=== PATIENT | male | born 1955 | race American Indian/Alaskan Native ===

== ENCOUNTER 2017-06-25 18:13 | Inpatient (IN) | payer MEDICARE ==
[2017-06-25 19:02] LABS: Basophils % (Auto) 0.6 % (0.0-1.8); Hematocrit 39.4 % (35.5-45.6); Hemoglobin 13.2 gm/dl (11.8-15.2); Mean Corpuscular HGB Conc 34 % (32-34); Mean Corpuscular Hemoglobin 33 pg (28-32); Mean Corpuscular Volume 97 fl (84-94); Platelet Count 189 K/mm3 (140-440); Red Blood Count 4.04 M/mm3 (3.65-5.03); Red Cell Distribution Width 13.5 % (13.2-15.2); White Blood Count 7.1 K/mm3 (4.5-11.0)
[2017-06-25 19:11] LABS: Anion Gap 20 mmol/L; BUN/Creatinine Ratio 13.33; Blood Urea Nitrogen 16 mg/dL (9-20); Calcium 9.5 mg/dL (8.4-10.2); Carbon Dioxide 26 mmol/L (22-30); Chloride 98.8 mmol/L (98-107); Glucose 98 mg/dL (75-100); Potassium 3.7 mmol/L (3.6-5.0); Sodium 141 mmol/L (137-145)
[2017-06-25 19:13] LABS: INR 1.05 (0.87-1.13)
[2017-06-25 19:14] LABS: Partial Thromboplastin Time 29.3 Sec. (24.2-36.6)
[2017-06-25] MEDS ORDERED: ZOFRAN IV ONE (21:36)
[2017-06-25] MEDS ORDERED: MORPHINE IV ONE (21:36)
[2017-06-25] MEDS ORDERED: NITRO-BID 2% TP ONE (21:36)
[2017-06-25] MEDS ORDERED: ASPIRIN PO ONE (21:36)
--- NOTE | 2017-06-25 21:40 | Emergency Department Report ---
HPI - General Chief Complaint: Chest Pain Time Seen by Provider: 06/25/17 21:27 - HPI HPI: Room 26 The patient is a 62-year-old male presenting with chief complaint of chest pain. Patient states his symptoms began this morning at approximately 04:30 with substernal chest pain described as a tightness/pressure in nature. The patient states he had to sit on the edge of his bed. The patient states she took a sublingual nitroglycerin in the chest pain resolved but returned at 09: 30. The patient states he again took a sublingual nitroglycerin and his chest pain resolved. The patient states since then his chest pain is an intermittent associated left neck pain, shortness of breath and nausea but denies vomiting or diaphoresis. The patient currently gives his pain a score of 6-7/10. The patient has an extensive cardiac history including a triple bypass in 1995 and 6 cardiac stents the last which was placed in April 2017. Location: Chest, see above Duration: Intermittent since 04:30 Quality: Tightness/pressure Severity: 6-7/10 Modifying factors: [see above] Context: [see above] Mode of transportation: Unknown ED Past Medical Hx - Past Medical History Hx Hypertension: Yes Hx CVA: Yes Hx Heart Attack/AMI: Yes (4) Hx Congestive Heart Failure: Yes Additional medical history: high cholesterol. 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 - Family History Family history: no significant - Social History Smoking Status: Former Smoker (none since 1994) Substance Use Type: None (denies illicit drug use), Alcohol (occasional strawberry daiquiri) - Medications Home Medications: Home Medications Medication Instructions Recorded Confirmed Last Taken Type Aspirin EC [Aspirin Enteric Coated 325 mg PO QDAY #30 tablet 09/17/14 09/19/16 12/02/15 Rx TAB] Clopidogrel [Plavix] 75 mg PO QDAY #30 tablet 09/17/14 09/19/16 12/02/15 Rx Nitroglycerin [Nitrostat] 0.4 mg SL .Q5MIN PRN #25 tab 09/17/14 09/19/16 Rx Furosemide [Lasix TAB] 40 mg PO QDAY 12/04/15 09/19/16 12/02/15 History Simvastatin [Zocor TAB] 20 mg PO QHS #30 tablet 12/06/15 09/19/16 Unknown Rx Carvedilol [Coreg] 25 mg PO DAILY 09/19/16 09/19/16 Unknown History ISOSORBIDE MONOnitrate [Imdur ER] 120 mg PO DAILY 09/19/16 09/19/16 Unknown History Ranolazine ER [Ranexa ER] 2,000 mg PO DAILY 09/19/16 09/19/16 Unknown History Temazepam 30 mg PO QHS 09/19/16 09/19/16 Unknown History hydrALAZINE [Apresoline TAB] 25 mg PO DAILY 09/19/16 09/19/16 Unknown History ED Review of Systems ROS: Stated complaint: CHEST PAIN Other details as noted in HPI Comment: All other systems reviewed and negative Constitutional: denies: chills, diaphoresis, fever Eyes: denies: eye pain, eye discharge, vision change ENT: denies: ear pain, throat pain Respiratory: shortness of breath Cardiovascular: chest pain Endocrine: no symptoms reported Gastrointestinal: denies: abdominal pain, nausea, diarrhea Genitourinary: denies: urgency, dysuria Musculoskeletal: denies: back pain, joint swelling, arthralgia Skin: denies: rash, lesions Neurological: denies: headache, weakness, paresthesias Psychiatric: denies: anxiety, depression Hematological/Lymphatic: denies: easy bleeding, easy bruising Physical Exam - Physical Exam Vital Signs: Vital Signs 06/25/17 06/25/17 06/25/17 18:25 20:48 21:01 Temperature 97.9 F Pulse Rate 69 71 Respiratory 19 8 L Rate Blood Pressure 174/80 164/85 O2 Sat by Pulse 100 99 96 Oximetry Physical Exam: GENERAL: The patient is well-developed well-nourished male lying on stretcher not appearing to be in acute distress. [] HEENT: Normocephalic. Atraumatic. Extraocular motions are intact. Patient has moist mucous membranes. NECK: Supple. Trachea midline CHEST/LUNGS: Clear to auscultation. There is no respiratory distress noted. HEART/CARDIOVASCULAR: Regular. There is no tachycardia. There is no gallop rub or murmur. ABDOMEN: Abdomen is soft, nontender. Patient has normal bowel sounds. There is no abdominal distention. SKIN: There is no rash. There is no edema. There is no diaphoresis. NEURO: The patient is awake, alert, and oriented. The patient is cooperative. The patient has normal speech MUSCULOSKELETAL: There is no evidence of acute injury. ED Course Vital Signs 06/25/17 06/25/17 06/25/17 18:25 20:48 21:01 Temperature 97.9 F Pulse Rate 69 71 Respiratory 19 8 L Rate Blood Pressure 174/80 164/85 O2 Sat by Pulse 100 99 96 Oximetry ED Medical Decision Making - Lab Data Result diagrams: 06/25/17 18:36 06/25/17 18:36 Laboratory Tests 06/25/17 06/25/17 06/25/17 18:36 18:36 18:36 WBC 7.1 RBC 4.04 Hgb 13.2 Hct 39.4 MCV 97 H MCH 33 H MCHC 34 RDW 13.5 Plt Count 189 Lymph % (Auto) 22.8 [place] % (Auto) 9.0 H Eos % (Auto) 1.0 Baso % (Auto) 0.6 Lymph # 1.6 [place] # 0.6 Eos # 0.1 Baso # 0.0 Seg Neutrophils % 66.6 Seg Neutrophils # 4.7 PT 13.6 INR 1.05 APTT 29.3 Sodium 141 Potassium 3.7 Chloride 98.8 Carbon Dioxide 26 Anion Gap 20 BUN 16 Creatinine 1.2 Estimated GFR > 60 BUN/Creatinine Ratio 13.33 Glucose 98 Calcium 9.5 Troponin T < 0.010 - Radiology Data Radiology results: image reviewed (chest x-ray) interpreted by me: Chest x-ray-no focal infiltrates, no pneumothorax - Differential Diagnosis ACS, pericarditis, GERD Critical care attestation.: If time is entered above; I have spent that time in minutes in the direct care of this critically ill patient, excluding procedure time. ED Disposition Clinical Impression: Chest pain Disposition: -09 OP ADMIT IP TO THIS HOSP Is pt being admited?: Yes Does the pt Need Aspirin: Yes Condition: Fair Instructions: Chest Pain (ED) Referrals: PRIMARY CARE, [Primary Care Provider] - 3-5 Days Time of Disposition: 21:43 (hospitalist paged)
[2017-06-26] MEDS ORDERED: NITROSTAT SL PRN ×2 (00:26→03:35)
[2017-06-26] MEDS: NITRO-BID 2% TP SCH ×2 (00:36→06:41)
[2017-06-26] MEDS ORDERED: RESTORIL PO ONE (01:54)
[2017-06-26] MEDS: RESTORIL PO SCH ×2 (03:30→21:53)
[2017-06-26] MEDS ORDERED: ZOFRAN IV PRN (03:30)
[2017-06-26] MEDS: MORPHINE IV PRN ×4 (03:31→21:53)
--- NOTE | 2017-06-26 07:28 | History and Physical Report ---
CHIEF COMPLAINT: Chest pain. HISTORY OF PRESENTING ILLNESS: The patient is a 62-year-old male who said he has been having tightness and pressure sensation in the chest going on since yesterday. Pain causing intermittently and is responsive to nitroglycerin sublingual. There is history of associated shortness of breath and nausea, but no vomiting. There is also no history of diaphoresis and the patient also denies history of cough or fever and stated that he took 2 nitroglycerins with the pain resolving and coming back and the patient claims the pain at level of about 6 to 7/10. Pain radiates to the left side of the neck. PAST MEDICAL HISTORY: Pertinent for hypertension, CVA, coronary artery disease with acute myocardial infarction, also the patient has history of congestive heart failure, hypercholesterolemia. PAST SURGICAL HISTORY: Pertinent for triple bypass and multiple stents x6 times last one being about few weeks ago. FAMILY HISTORY: Noncontributory. SOCIAL HISTORY: The patient is a former cigarette smoker. Does not smoke cigarettes, currently drinks alcohol occasionally and does not use illicit drugs. MEDICATIONS: The patient is on aspirin 325 mg by mouth daily, clopidogrel, Plavix 75 mg by mouth daily, nitroglycerin, Nitrostat 0.4 mg every 5 minutes as needed for pain, Lasix 40 mg by mouth daily, Zocor 20 mg by mouth at bedtime, and Coreg 25 mg by mouth daily. The patient is also on isosorbide mononitrate 120 mg by mouth daily and ranolazine 2000 mg by mouth daily. The patient is on temazepam 30 mg by mouth at bedtime for insomnia and hydralazine 25 mg by mouth daily. ALLERGIES: The patient is allergic to iodinated contrast media and IV dye. REVIEW OF SYSTEMS: CONSTITUTIONAL: There is no fever. No chills. No diaphoresis. HEENT: There is no headache or sore throat. CARDIOVASCULAR SYSTEM: Chest pain present. No orthopnea. RESPIRATORY SYSTEM: Shortness of breath present. No cough. GASTROINTESTINAL SYSTEM: Nausea present, buy no vomiting. No abdominal pain, diarrhea, or constipation. NEUROLOGICAL SYSTEM: There is no numbness, no dizziness, no altered mental status. MUSCULOSKELETAL SYSTEM: There is no joint pain or swelling. DERMATOLOGICAL SYSTEM: There is no skin rash or itching. GENITOURINARY SYSTEM: Show no dysuria, hematuria, or flank pain. Rest of system review is normal. PHYSICAL EXAMINATION: GENERAL: At the time of exam, the patient was found to be alert, oriented x3, and not in acute distress. VITAL SIGNS: Shows temperature of 97.5, pulse of 72, respirations 22, blood pressure 164/80, O2 sat of 99% on room air. HEENT: Showed pupils to be equal, round, reactive to light and accommodating. Extraocular muscles are intact. NECK: Supple with no JVD or carotid bruit. CARDIOVASCULAR SYSTEM: Show first and second heart sounds with no gallops or murmur. RESPIRATORY SYSTEM: Show good air entry on both sides of the lung with no abnormal breath sounds. GASTROINTESTINAL SYSTEM: Show abdomen to be full, soft, nontender with no organomegaly or rigidity. NEUROLOGIC: Shows no focal deficits. MUSCULOSKELETAL SYSTEM: Show no joint swelling or tenderness. DERMATOLOGICAL SYSTEM: Show no skin rash. GENITOURINARY SYSTEM: Showing no costovertebral angle tenderness. PERTINENT LABORATORY STUDIES: The patient had CBC done that shows normal white count of 7.1 with normal hemoglobin of 13.2 and normal hematocrit of 39.4 with elevated MCV of 97%. CBC differential was unremarkable except for increasing monocyte count of 9.0. Coagulation studies came back unremarkable. Chemistry came back unremarkable with troponin being normal. IMAGING STUDIES: The patient had a chest x-ray done with no report of any acute cardiopulmonary lesion. DIAGNOSIS: Chest pain. PLAN: The patient will be admitted to telemetry and we will have continuous cardiac monitoring. The patient will have cardiac enzymes checked q. 6 hours x2 more levels and will be on aspirin 325 mg by mouth daily. The patient will be on IV morphine 2 mg every 5 minutes as needed for chest pain and will be on nitro paste 1 inch to anterior chest wall q.i.d. The patient will also be on IV Zofran 4 mg every 6 hours as needed for nausea and vomiting and will be on oxygen by nasal cannula at the rate of 2 L per minute. The patient will remain n.p.o. for Lexiscan stress test in the morning and will have his home medication reconciled and applied accordingly. The patient will also be on nitroglycerin sublingual for breakthrough chest pain. JOB# [id number] OCN/NTS MTDD
--- NOTE | 2017-06-26 08:24 | XRay Report ---
Chest 2 views. History: Chest pain and shortness of breath. Findings: The heart is mildly enlarged with normal pulmonary vascularity. Post CABG changes are present. The lungs are clear. There is no pleural fluid. There's been no appreciable change since September 19, 2016. Impression: No acute findings or interval changes.
[2017-06-26] MEDS: APRESOLINE PO SCH ×3 (08:47→20:57)
[2017-06-26] MEDS ORDERED: LEXISCAN IV ONE ×2 (09:06→09:08)
[2017-06-26] MEDS: COREG PO SCH (09:43)
[2017-06-26] MEDS ORDERED: ASPIRIN PO SCH (10:00)
--- NOTE | 2017-06-26 10:41 | Consultation ---
History of Present Illness Consult date: 06/26/17 Requesting physician: STACIE PENNINGTON Consult reason: chest pain, known to you History of present illness: Patient is a 61 YOM with a PMHx significant for chronic CAD (prior 3 V CABG in 1995 with multiple ensuing PCIs, most recently D1, LcX, pLAD and SVG to RCA, in 2014, then SVG to OM 04/2017), CMP, s/p TMLR in 2014, recurrent chest pain, HTN, and HLP. He presented to the ED with c/o chest pain, which began yesterday at 4: 30AM. The patient states the pain awoke him from sleep and he had to sit on the edge of his bed. He then took a sublingual nitroglycerin and the chest pain resolved but returned at 09:30AM. The patient states he again took a sublingual nitroglycerin and his chest pain resolved. The pain then reoccurred and he decided to seek medical attention. He describes his pain as a midsternal and left-sided intermittent pressure which radiates into his left neck. The pain was associated with SOB and nausea. He denies any precipitating or aggravating factors. He reports compliance with all of his medications, including Ranexa and Imdur. Of note, pt recently underwent LHC with PCI for NSTEMI at [facility] on 05/12/2017 which showed severe 3-vessel coronary artery disease with PCI SVG to OM. Pt was also recently discharged from [facility] on 06/20/2017 following treatment for HF. Pt had TMLR done in 03/2015 at [place] for recurrent angina. Pt had RHC in 2015 which revealed elevated intracardiac filling pressures, mild pulmonary hypertension mostly secondary to left heart disease, and low normal cardiac output. Echo done 05/14/2017 showed EF 50 - 55%, hypokinetic apex and distal septum. Patient's primary care doctor is through the [place]. 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 Herzog through [facility]. Past History Past Medical History: CAD, heart failure, hypertension, hyperlipidemia Past Surgical History: CABG Social history: denies: smoking, alcohol abuse, prescription drug abuse Medications and Allergies Allergies Allergy/AdvReac Type Severity Reaction Status Date / Time Iodinated Contrast Media - Allergy Itching Verified 06/25/17 18:21 IV Dye Home Medications Medication Instructions Recorded Confirmed Last Taken Type Aspirin EC [Aspirin Enteric Coated 325 mg PO QDAY #30 tablet 09/17/14 06/25/17 12/02/15 Rx TAB] Clopidogrel [Plavix] 75 mg PO QDAY #30 tablet 09/17/14 06/25/17 12/02/15 Rx Nitroglycerin [Nitrostat] 0.4 mg SL .Q5MIN PRN #25 tab 09/17/14 06/25/17 Rx Simvastatin [Zocor TAB] 20 mg PO QHS #30 tablet 12/06/15 06/25/17 Unknown Rx Carvedilol [Coreg] 25 mg PO DAILY 09/19/16 06/25/17 Unknown History ISOSORBIDE MONOnitrate [Imdur ER] 60 mg PO DAILY 09/19/16 06/25/17 Unknown History Ranolazine ER [Ranexa ER] 1,000 mg PO BID 09/19/16 06/25/17 Unknown History Temazepam 30 mg PO QHS 09/19/16 06/25/17 Unknown History hydrALAZINE [Apresoline TAB] 25 mg PO TID 09/19/16 06/25/17 Unknown History Torsemide [Demadex] 20 mg PO DAILY 06/25/17 06/25/17 Unknown History amLODIPine [Norvasc] 5 mg PO DAILY 06/25/17 06/25/17 Unknown History Active Meds: Active Medications Amlodipine Besylate (Norvasc) 5 mg PO DAILY [facility] Aspirin (Ecotrin) 325 mg PO QDAY [facility] Carvedilol (Coreg) 25 mg PO DAILY [facility] Clopidogrel Bisulfate (Plavix) 75 mg PO QDAY [facility] Hydralazine HCl (Apresoline) 25 mg PO TID [facility] Last Admin: 06/26/17 08:47 Dose: Not Given Morphine Sulfate (Morphine) 2 mg IV Q5MIN PRN PRN Reason: Chest Pain Last Admin: 06/26/17 03:31 Dose: 2 mg Nitroglycerin (Nitro-Bid 2%) 1 inch TP QIDNTG [facility] PRN Reason: Protocol Last Admin: 06/26/17 06:41 Dose: Not Given Nitroglycerin (Nitrostat) 0.4 mg SL .Q5MIN PRN PRN Reason: Chest Pain Ondansetron HCl (Zofran) 4 mg IV Q6H PRN PRN Reason: Nausea And Vomiting Ranolazine (Ranexa Er) 1,000 mg PO BID [facility] Simvastatin (Zocor) 20 mg PO QHS [facility] Temazepam (Restoril) 30 mg PO QHS [facility] Last Admin: 06/26/17 03:30 Dose: 30 mg Torsemide (Demadex) 20 mg PO DAILY [facility] Review of Systems All systems: negative Cardiovascular: chest pain, shortness of breath, no dyspnea on exertion, no leg edema Respiratory: shortness of breath, no cough, no dyspnea on exertion, no congestion, no wheezing, no pain on inspiration Gastrointestinal: nausea, no abdominal pain, no vomiting, no diarrhea, no constipation, no change in bowel habits Physical Examination Vital Signs Temp Pulse Resp BP Pulse Ox 97.9 F 69 19 174/80 100 06/25/17 18:25 06/25/17 18:25 06/25/17 18:25 06/25/17 18:25 06/25/17 18:25 General appearance: no acute distress HEENT: Positive: PERRL, Normocephaly, Mucus Membranes Moist Neck: Positive: neck supple, trachea midline Cardiac: Positive: Reg Rate and Rhythm, S1/S2 Lungs: Positive: Normal Exam, clear to auscultation, Normal Breath Sounds Neuro: Positive: Grossly Intact, Cranial Nerve 2-12 Intact Abdomen: Positive: Unremarkable, Soft, Active Bowel Sounds Skin: Positive: Clear. Negative: Rash, Wound Musculoskeletal: No Fluid Collection, No Pain, Normal Range of Motion Extremities: Present: upper extr. pulses, lower extr. pulses. Absent: edema Results 06/25/17 18:36 06/25/17 18:36 - Imaging and Cardiology Echo: report reviewed (05/14/2017 showed EF 50 - 55%, hypokinetic apex and distal septum. ) Cardiac cath: report reviewed (05/12/2017 which showed severe 3-vessel coronary artery disease with PCI SVG to OM) EKG: image reviewed EKG interpretations - Telemetry EKG Rhythm: Sinus Rhythm - EKG Sinus rhythms and dysrhythmias: sinus rhythm Ventricular dysrhythmias: ventricular premature com AV and intraventricular conduction: left bundle branch block Chamber hypertrophy or enlargement: left ventricular hypertro Myocardial infarction: inferior CA (old age inde Assessment and Plan Chest pain Recurrent, stable chronic angina. ECG with NAF. CXR with NAF. Dar negative for AMI x 3 sets. Continue home ASA, plavix, Imdur & Ranexa. CAD, s/p CA, PCI, CABG, and TMLR Cont ASA, plavix, BB, and statin. HTN Stable. Continue current medical management. HLP Cont statin. CMP Obesity s/p lexiscan MPI stress test this AM which showed small mild partially reversible inferior defect, small mild reversible anterobasal defect, no significant ischemia, EF 34%. Cont medical therapy with possible d/c in AM. The patient has been seen in conjunction with Dr. Pascual who agrees with the assessment and plan of care.
[2017-06-26] MEDS: DEMADEX PO SCH (12:23)
[2017-06-26] MEDS: ECOTRIN PO SCH (12:23)
[2017-06-26] MEDS: RANEXA ER PO SCH ×2 (12:24→21:53)
[2017-06-26] MEDS: PLAVIX PO SCH (12:24)
[2017-06-26] MEDS: IMDUR PO SCH (12:26)
[2017-06-26] MEDS: NORVASC PO SCH (12:27)
--- NOTE | 2017-06-26 15:12 | Progress Note ---
Assessment and Plan Assessment and plan: Patient is 62-year-old man with history of hypertension, acute [place] 4 with 6 cardiac stents, CAD, CVA, CABG, dyslipidemia and CHF who presents with chest pain. Per cardiology: pt recently underwent LHC with PCI for NSTEMI at [facility] on 2016 which showed severe 3-vessel coronary artery disease with PCI SVG to OM. Pt was also recently discharged from [facility] on 06/20/2017 following treatment for HF. Pt had TMLR done in 03/2015 at [place] for recurrent angina. Pt had RHC in 2015 which revealed elevated intracardiac filling pressures, mild pulmonary hypertension mostly secondary to left heart disease, and low normal cardiac output. Echo done 05/14/2017 showed EF 50 - 55%, hypokinetic apex and distal septum. Patient's primary care doctor is through the [place]. 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 Herzog through [facility]. -Chest pain Recurrent, stable chronic angina. ECG with NAF. CXR with NAF. Dar negative for AMI x 3 sets. Continue home ASA, plavix, Imdur & Ranexa. CAD, s/p [place], PCI, CABG, and TMLR Cont ASA, plavix, BB, and statin. HTN Stable. Continue current medical management. HLP Cont statin. CMP Obesity s/p lexiscan MPI stress test this AM which showed small mild partially reversible inferior defect, small mild reversible anterobasal defect, no significant ischemia, EF 34%. Cont medical therapy with possible d/c in AM. History Interval history: Patient seen and examined. Follow up on current diagnosis/chest pain which improved. Overnight uneventful. No sob, n/v or severe headaches. Imaging, old records, testing, labs, nursing notes reviewed. Hospitalist Physical - Physical exam Narrative exam: GEN: WDWN, NAD, AWAKE, ALERT, ORIENTATED x 3 HEENT: NCAT, PERRL, EOMI, OP CLEAR NECK: SUPPLE, NO THYROMEGALY, CVS: RRR, NORMAL S1S2 LUNGS/CHEST: NORMAL CHEST EXPANSION B, GOOD AIR ENTRY B ABD: SOFT, NTND, GBS, NO REBOUND OR GUARDING EXT/SKIN: NO RASH MSK: FROM X 4 EXTREMITIES NEURO: CN 2-12 GROSSLY INTACT, NO FOCAL DEFICITS PSY: CALM - Constitutional Vitals: Temp Pulse Resp BP Pulse Ox 97.8 F 54 L 0 L 144/64 98 06/26/17 12:00 06/26/17 12:36 06/26/17 12:28 06/26/17 12:26 06/26/17 12:36 General appearance: Present: no acute distress Results - Labs CBC & Chem 7: 06/25/17 18:36 06/25/17 18:36 Labs: Laboratory Last Values WBC 7.1 K/mm3 (4.5-11.0) 06/25/17 18:36 RBC 4.04 M/mm3 (3.65-5.03) 06/25/17 18:36 Hgb 13.2 gm/dl (11.8-15.2) 06/25/17 18:36 Hct 39.4 % (35.5-45.6) 06/25/17 18:36 MCV 97 fl (84-94) H 06/25/17 18:36 MCH 33 pg (28-32) H 06/25/17 18:36 MCHC 34 % (32-34) 06/25/17 18:36 RDW 13.5 % (13.2-15.2) 06/25/17 18:36 Plt Count 189 K/mm3 (140-440) 06/25/17 18:36 Lymph % (Auto) 22.8 % (13.4-35.0) 06/25/17 18:36 [place] % (Auto) 9.0 % (0.0-7.3) H 06/25/17 18:36 Eos % (Auto) 1.0 % (0.0-4.3) 06/25/17 18:36 Baso % (Auto) 0.6 % (0.0-1.8) 06/25/17 18:36 Lymph # 1.6 K/mm3 (1.2-5.4) 06/25/17 18:36 [place] # 0.6 K/mm3 (0.0-0.8) 06/25/17 18:36 Eos # 0.1 K/mm3 (0.0-0.4) 06/25/17 18:36 Baso # 0.0 K/mm3 (0.0-0.1) 06/25/17 18:36 Seg Neutrophils % 66.6 % (40.0-70.0) 06/25/17 18:36 Seg Neutrophils # 4.7 K/mm3 (1.8-7.7) 06/25/17 18:36 PT 13.6 Sec. (12.2-14.9) 06/25/17 18:36 INR 1.05 (0.87-1.13) 06/25/17 18:36 APTT 29.3 Sec. (24.2-36.6) 06/25/17 18:36 Sodium 141 mmol/L (137-145) 06/25/17 18:36 Potassium 3.7 mmol/L (3.6-5.0) 06/25/17 18:36 Chloride 98.8 mmol/L (98-107) 06/25/17 18:36 Carbon Dioxide 26 mmol/L (22-30) 06/25/17 18:36 Anion Gap 20 mmol/L 06/25/17 18:36 BUN 16 mg/dL (9-20) 06/25/17 18:36 Creatinine 1.2 mg/dL (0.8-1.5) 06/25/17 18:36 Estimated GFR > 60 ml/min 06/25/17 18:36 BUN/Creatinine Ratio 13.33 % 06/25/17 18:36 Glucose 98 mg/dL (75-100) 06/25/17 18:36 Calcium 9.5 mg/dL (8.4-10.2) 06/25/17 18:36 Magnesium 1.90 mg/dL (1.7-2.3) 06/26/17 11:34 Troponin T < 0.010 ng/mL (0.00-0.029) 06/26/17 11:34
--- NOTE | 2017-06-26 15:24 | Admit Criteria Form ---
Admission Criteria Documentation: CARDIOLOGY GRG Clinical Indications for Admission to Inpatient Care ( Place 'X' for any and all applicable criteria): Hospital admission is needed for appropriate care of the patient because of ANY ONE of the following (1): [ ] I. Hemodynamic instability as indicated by ALL of the following (1)(2)(3) (4)(5) [ ]a) Vital signs or other findings not as expected for chronic patient condition or baseline [ ]b) Instability indicated by ANY ONE of the following: [ ]i) Hypotension [ ]ii) Symptomatic Tachycardia unresponsive to treatment ( e.g., analgesia, fluids, sedation as indicated) [ ]iii) Inadequate perfusion indicated by ANY ONE of the following: [ ] 1) Lactic acidosis (> 2 mmol/L) [ ] 2) New abnormal capillary refill (> 3 seconds) [ ] 3) Reduced urine output [ ] 4) New altered mental status [ ]iv) Orthostatic vital sign changes unresponsive to treatment (e.g., fluids) [ ]v) IV inotropic or vasopressor medication required to maintain adequate blood pressure or perfusion [ ] II. Severe heart failure as indicated by ANY ONE of the following(17)(18) [ ]a) Respiratory distress [ ]b) Hypotension [ ]c) Anasarca (refractory to outpatient therapy) [ ]d) Cardiac arrhythmias of immediate concern [ ]e) Myocardial ischemia [ ] III. Cardiac arrhythmias or findings of immediate concern indicated by ANY ONE of the following (19)(20): [ ] a) Heart rhythms that are inherently dangerous or unstable indicated by ANY ONE of the following (21)(22)(23): [ ] i) Resuscitated ventricular fibrillation or cardiac arrest [ ] ii) Ventricular escape rhythm [ ] iii) Sustained ventricular tachycardia (30 seconds or more of ventricular rhythm at greater than 100 beats per minute) [ ] iv) Nonsustained ventricular tachycardia and ANY ONE of the following: [ ] 1) Suspected cardiac ischemia as cause or consequence of ventricular tachycardia [ ] 2) In setting of acute myocarditis [ ] b) Unstable cardiac conduction defects indicated by ANY ONE of the following(23)(24)(25) [ ] i) Type II second-degree atrioventricular block [ ]ii) Third-degree atrioventricular block [ ]iii) New-onset left bundle branch block with suspected myocardial ischemia [ ]c) Any heart rhythm and ANY ONE of the following (21)(22)(26)(27) (28) [ ] i) Continuous long-term ECG monitoring needed (e.g., initiation of drug requiring monitoring for more than 24 hours) [ ] ii) Patient has automatic implanted cardioverter defibrillator that is repeatedly firing, malfunctioning, or in need of immediate adjustment of settings beyond the scope of ambulatory or observation care [ ]d) Heart rhythms of concern due to ANY ONE of the following: [ ] i) Hypotension [ ] ii) Respiratory distress [ ] iii) Association with other significant symptoms (e.g., bradycardia with syncope or ongoing dizziness, supraventricular tachycardia with chest pain (14)(15)(17) [ ] IV. Monitoring for cardiac contusion beyond the scope of observation care needed [A](30)(31)(32) [ ] V. Surgical or device complication (e.g., valve replacement complication , pacemaker dysfunction) (35)(41)(44)(45)(46) [ ] . Inpatient palliative care needed. [B](49) Also use Inpatient Palliative Care Criteria [ ] VII. Nonbacterial thrombotic (marantic) endocarditis (36)(43)(47)(48) [X ] VIII. Cardiology condition, symptom, or finding for which emergency and observation care has failed or are not considered appropriate. [ ] IX. Acute valvular disease requiring inpatient as indicated by ANY ONE of the following (41) [ ]a) Acute valvular regurgitation (42) [ ]b) Noninfectious valvulitis (43) [ ]c) Obstructive valve thrombosis [ ]d) Paravalvular leak [ ]e) Other significant valvular disorder remaining after emergency or observation level of care (as appropriate) [ ]X. Pericardial disease requiring inpatient treatment as indicated by ANY ONE of the following (33)(34)(35)(36)(37) [ ]a) Suspected tamponade (38)(39)(40) [ ]b) Hemopericardium [ ]c) Other significant pericardial disorder remaining after emergency or observation level of care (as appropriate) [ ] XI. Cardiac ischemia beyond scope of emergency and observation care. [ ] XII. Hypertension requiring inpatient treatment as indicated by ANY ONE of the following (6)(7)(8) [ ]a) SBP greater than 220 mm Hg or DBP greater than 120 mmHg despite treatment [ ]b) SBP greater than 140 mm Hg or DBP greater than 100 mm Hg with evidence of acute end organ damage as indicated by ANY ONE of the following [ ] i) Altered mental status [ ] ii) Acute renal failure as indicated by new onset of ANY ONE of the following (9)(10)(11)(12)(13) [ ]1) 3-fold rise in serum creatinine from baseline [ ]2) Serum creatinine greater than 4 mg/dL ( 354 micromoles/L) with acute rise greater than 0.5 mg/dL (44.2 micromoles/L) [ ]3) Reduction of more than 75% in estimated glomerular filtration rate from baseline [ ]4) Estimated glomerular filtration rate less than 35 mL/min/1.73m2 (0.59 mL/sec/1.73m2) in child up to 18 years of age [ ]5) Cessation of urine output indicated by ALL of the following [ ]A. Adequate volume status [ ]B. Inadequate urine output as indicated by ANY ONE of the following [ ]a. Urine output less than 0.3 mL/kg/hr for 24 hours [ ]b. Anuria (urine output less than 0.1 mL/kg/hr) for 12 hours [ ] iii) Aortic dissection [ ] iv) Myocardial Ischemia [ ] v) Left ventricular heart failure [ ]vi) Retinal Hemorrhage [ ]vii) Other significant finding [ ]c) Hypertension in child requiring inpatient treatment as indicated by ALL of the following(14)(15)(16) [ ] i) Outpatient treatment not effective, not available, or not appropriate [ ]ii) SBP or DBP greater than 95th percentile for age [ ]iii) Evidence of acute end organ damage as indicated by ANY ONE of the following [ ]1) Altered mental status [ ]2) Acute renal failure as indicated by new onset of ANY ONE of the following(9)(10)(11)(12)(13) [ ]A. 3-fold rise in serum creatinine from baseline [ ]B. Serum creatinine greater than 4 mg/dL (354 micromoles/L) with acute rise greater than 0.5 mg/dL (44.2 micromoles/L) [ ]C. Reduction of more than 75% in estimated glomerular filtration rate from baseline [ ]D. Estimated glomerular filtration rate less than 35 mL/min/1.73m2 (0.59 mL/sec/1.73m2) in child up to 18 years of age [ ]E. Cessation of urine output indicated by ALL of the following [ ]a. Adequate volume status [ ]b. Inadequate urine output as indicated by ANY ONE of the following [ ]i) Urine output less than 0.3 mL/kg/hr for 24 hours [ ]ii) Anuria ( urine output less than 0.1 mL/kg/hr) for 12 hours [ ]3) Severe headache [ ]4) Visual disturbance [ ]5) Retinal hemorrhage [ ]6) Other significant finding [ ]XIII. Complications of transplanted heart indicated by ANY ONE of the following(61): [ ]a) Acute graft rejection requiring inpatient management (eg, intravenous immunosuppression)(62)(63) [ ]b) Acute graft heart failure indicated by ANY ONE of the following(64): [ ]i) Hemodynamic instability [ ]ii) Cardiac arrhythmias of immediate concern [ ]iii) Pulmonary edema that is very severe (eg, mechanical ventilation needed, imminent or likely, need for 100% oxygen to keep oxygen saturation above 90%) [ ]iv) Pulmonary edema that is persistent as indicated by ALL of the following: [ ]1) New need for oxygen therapy to keep oxygen saturation above 90% (or increased FiO2 need from baseline) [ ]2) Has not improved sufficiently with emergency department or observation care IV diuretics or other heart failure treatments[E] [ ]v) Altered mental status that is severe or persistent [ ]vi) Increased creatinine (new on laboratory test) with reduction of more than 50% in estimated glomerular filtration rate from baseline [ ]vii) Progressively (ongoing) rising creatinine (known from past laboratory test) with reduction of more than 25% in estimated glomerular filtration rate from baseline [ ]viii) Acute renal failure [ ]ix) Acute peripheral ischemia (eg, examination shows pulseless, cool, mottled, or cyanotic extremity) [ ]x) Pulmonary artery catheter monitoring needed [ ]xi) Other sign or symptom of heart failure requiring inpatient treatment (ie, too severe or not responsive to outpatient and observation care treatment) [ ]c) Infection requiring inpatient management (eg, Hemodynamic instability, need for intravenous antimicrobial treatment)(66)(67)(68)(69)(70) [ ]d) Cardiac allograft vasculopathy requiring inpatient management ( eg evidence of cardiac ischemia)(71) [ ]e) Other complication of transplanted heart (eg, stroke, severe pulmonary hypertension, severe valvular dysfunction) requiring inpatient management(72) The original [facility] [employer] content created by [facility] has been revised. The portions of the content which have been revised are identified through the use of italic text or in bold, and [facility] has neither reviewed nor approved the modified material. All other unmodified content is copyright [facility] [employer]. Please see references footnoted in the original [facility] [employer] edition 2016 Admission Criteria Met: Yes
--- NOTE | 2017-06-26 21:03 | Treadmill Report ---
PROCEDURE: Cardiology nuclear perfusion study. READING PHYSICIAN: Mario House M.D. IMAGING PROTOCOL: The patient received 10 mCi of Technetium 99m Tetrofosmin for resting image and 28 mCi of Technetium 99m Tetrofosmin for stress imaging. The imaging for the whole procedure was completed 30-90 minutes following the initial injection of Technetium 99m tetrofosmin. The SPECT imaging in the 180 degree arc was performed in the right anterior oblique projection. Computerized reconstruction of the images was performed for analysis. IMAGING RESULTS: Normal cavity size from stress to rest. Normal distribution of radionuclide in the anterior, septal, lateral, apical, and anterior apical, but there is a [id number] decrease myocardial perfusion in the inferior inferoapical region seen on stress compared to rest with gated SPECT, EF 34% with moderate global hypokinesis. The patient infused Lexiscan with no EKG changes. SUMMARY: 1. Negative Lexiscan EKG. 2. The patient has mild to moderate inferior inferoapical ischemia with normal perfusion in anterior, septal, and apical regions with EF of 34%. JOB# [id number] JANIS/PORSCHE
[2017-06-26] MEDS ORDERED: ZOCOR PO SCH (22:00)
[2017-06-26] MEDS ORDERED: RESTORIL PO SCH (22:00)
[2017-06-27] MEDS: MORPHINE IV PRN (05:17)
--- NOTE | 2017-06-27 10:23 | Progress Note ---
Assessment and Plan Chest pain currently resolved. Recurrent, stable chronic angina. ECG with NAF. CXR with NAF. Dar negative for AMI x 3 sets. Continue home ASA, plavix, Imdur & Ranexa. CAD, s/p AK, PCI, CABG, and TMLR Cont ASA, plavix, BB, and statin. HTN Stable. Continue current medical management. HLP Cont statin. CMP Obesity Currently stable cardiac status. Cont present cardiac regimen. Pt may discharge home from cardiology standpoint. 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 Herzog, within 2 weeks of hospital discharge. The patient has been seen in conjunction with Dr. Pascual who agrees with the assessment and plan of care. Subjective Date of service: 06/27/17 Principal diagnosis: CAD, chest pain Interval history: Pt resting comfortably in bed, states his chest pain has resolved, has no complaints. States he is ready to go home. VSS. Objective Last Vital Signs Temp 98.3 F 06/27/17 04:08 Pulse 73 06/27/17 04:08 Resp 20 06/27/17 05:17 BP 133/70 06/27/17 04:08 Pulse Ox 98 06/27/17 04:08 - Physical Examination General: Appears Well, No Apparent Distress HEENT: Positive: PERRL, Normocephaly, Mucus Membranes Moist Neck: Positive: neck supple, trachea midline Cardiac: Positive: Reg Rate and Rhythm, S1/S2 Lungs: Positive: clear to auscultation Neuro: Positive: Grossly Intact, Cranial Nerve 2-12 Intact Abdomen: Positive: Unremarkable, Soft, Active Bowel Sounds Skin: Positive: Clear. Negative: Rash, Wound Musculoskeletal: No Fluid Collection, No Pain, Normal Range of Motion Extremities: Present: upper extr. pulses, lower extr. pulses. Absent: edema - Imaging and Cardiology EKG: image reviewed Echo: report reviewed (05/14/2017 showed EF 50 - 55%, hypokinetic apex and distal septum. ) Cardiac cath: report reviewed (05/12/2017 which showed severe 3-vessel coronary artery disease with PCI SVG to OM) - EKG Sinus rhythms and dysrhythmias: sinus rhythm Ventricular dysrhythmias: ventricular premature com AV and intraventricular conduction: left bundle branch block Chamber hypertrophy or enlargement: left ventricular hypertro Myocardial infarction: inferior AK (old age inde
[2017-06-27] MEDS: COREG PO SCH (10:24)
[2017-06-27] MEDS: IMDUR PO SCH (10:24)
[2017-06-27] MEDS: NORVASC PO SCH (10:24)
[2017-06-27] MEDS: RANEXA ER PO SCH (10:24)
[2017-06-27] MEDS: APRESOLINE PO SCH (10:25)
[2017-06-27] MEDS: PLAVIX PO SCH (10:25)
[2017-06-27] MEDS: ECOTRIN PO SCH (10:25)
[2017-06-27] MEDS: DEMADEX PO SCH (10:25)
--- NOTE | 2017-06-27 13:15 | Discharge Summary ---
Providers - Providers Date of Admission: 06/26/17 00:20 Date of discharge: 06/27/17 Attending physician: STACIE PENNINGTON 06/26/17 08:18 Consult to Physician [CONS] Routine Consulting Provider: MERY ROSA Reason For Exam: CP, severe CAD, pt known to you Place consult to:: Ramirez SCHWARTZ Notified:: Yifan RN Was contact made?: Yes If yes, spoke with:: Dr. Pennington spoke with Maria Alejandra Finn Time called:: 09:10 Primary care physician: JULIAN DENIS Hospitalization Condition: Stable Hospital course: Patient is 62-year-old man with history of hypertension, acute PR 4 with 6 cardiac stents, CAD, CVA, CABG, dyslipidemia and CHF who presents with chest pain. Per cardiology: pt recently underwent LHC with PCI for NSTEMI at [facility] on 2016 which showed severe 3-vessel coronary artery disease with PCI SVG to OM. Pt was also recently discharged from [facility] on 06/20/2017 following treatment for HF. Pt had TMLR done in 03/2015 at [facility] for recurrent angina. Pt had RHC in 2015 which revealed elevated intracardiac filling pressures, mild pulmonary hypertension mostly secondary to left heart disease, and low normal cardiac output. Echo done 05/14/2017 showed EF 50 - 55%, hypokinetic apex and distal septum. Patient's primary care doctor is through the [place]. His civilian jail officer is a Dr. Herzog through [facility]. -Chest pain Recurrent, stable chronic angina. ECG with NAF. CXR with NAF. Dar negative for AMI x 3 sets. Continue home ASA, plavix, Imdur & Ranexa. CAD, s/p PR, PCI, CABG, and TMLR Cont ASA, plavix, BB, and statin. HTN Stable. Continue current medical management. HLP Cont statin. CMP Obesity 06/26/17 s/p lexiscan MPI stress test this AM which showed small mild partially reversible inferior defect, small mild reversible anterobasal defect, no significant ischemia, EF 34%. Cont medical therapy with possible d/c in AM. 06/27/2017 per Cardiology: "Currently stable cardiac status. Cont present cardiac regimen. Pt may discharge home from cardiology standpoint. Recommend pt to follow up with his primary civilian jail officer, Dr. Herzog, within 2 weeks of hospital discharge." Patient has all his home medication except restoril/Temazepam-script given Disposition: DC-01 TO HOME OR SELFCARE Time spent for discharge: 33 minutes Core Measure Documentation - Palliative Care Palliative Care/ Comfort Measures: Not Applicable - Core Measures Any of the following diagnoses?: none - VTE Discharge Requirements Deep Vein Thrombosis/Pulmonary Embolism Present on Admission: No Has pt received <5 days of overlap therapy or INR<2.0: No Anticoagulant overlap therapy prescribed at discharge: No Contraindication No Overlap Therapy order at DC: Not Indicated Exam - Physical Exam Narrative exam: GEN: WDWN, NAD, AWAKE, ALERT, ORIENTATED x 3 HEENT: NCAT, PERRL, EOMI, OP CLEAR NECK: SUPPLE, NO THYROMEGALY, CVS: RRR, NORMAL S1S2 LUNGS/CHEST: NORMAL CHEST EXPANSION B, GOOD AIR ENTRY B ABD: SOFT, NTND, GBS, NO REBOUND OR GUARDING EXT/SKIN: NO RASH MSK: FROM X 4 EXTREMITIES NEURO: CN 2-12 GROSSLY INTACT, NO FOCAL DEFICITS PSY: CALM - Constitutional Vitals: Temp Pulse Resp BP Pulse Ox 98.3 F 73 20 133/70 98 06/27/17 04:08 06/27/17 04:08 06/27/17 05:17 06/27/17 04:08 06/27/17 04:08 Plan Activity: other (no strenous activity until cleared by Customer Advocate) Diet: low salt Additional Instructions: See your Customer Advocate, Dr. Landers with first available appt Follow up with: PRIMARY CARE, [Referring] - 3-5 Days Prescriptions: Temazepam 30 mg PO QHS #30 capsule
[2017-06-27 14:36] VITALS: BP 142/69
== END 2017-06-27 14:38 | disposition home or self-care (01) | DRG 303 ==
LOC: ED 18:13 → 4A 06-26 00:20
PROVIDERS: ADMIT Internal Medicine; ATTEND Internal Medicine
DX: I25.118 Atherosclerotic heart disease of native coronary artery with other forms of angina pectoris (principal); I42.9 Cardiomyopathy, unspecified; E66.9 Obesity, unspecified; I27.2 Other secondary pulmonary hypertension; Z86.73 Personal history of transient ischemic attack (TIA), and cerebral infarction without residual deficits; I25.2 Old myocardial infarction; Z98.61 Coronary angioplasty status; Z91.041 Radiographic dye allergy status; Z87.891 Personal history of nicotine dependence; Z95.1 Presence of aortocoronary bypass graft; Z68.36 Body mass index [BMI] 36.0-36.9, adult; I50.9 Heart failure, unspecified; I11.0 Hypertensive heart disease with heart failure
CPT/HCPCS: 36415; 71020; 78452; 80048; 83735; 84484; 85025; 85610; 85730; 93005; 93010; 93017; 96374; 96375; A9502; J2270; J2405; J2785

== ENCOUNTER 2018-03-14 02:00 | Inpatient (IN) | payer MEDICARE ==
[2018-03-14] MEDS ORDERED: ASPIRIN PO ONE ×2 (02:13→02:37)
[2018-03-14] MEDS ORDERED: ZOFRAN IV ONE (02:30)
[2018-03-14] MEDS ORDERED: MORPHINE ONE ×2 (02:31→14:19)
[2018-03-14] MEDS ORDERED: ZOFRAN ONE (02:31)
--- NOTE | 2018-03-14 02:31 | Emergency Department Report ---
ED Chest Pain HPI - General Chief Complaint: Chest Pain Stated Complaint: CHEST PAIN Time Seen by Provider: 03/14/18 02:27 Source: patient, EMS Mode of arrival: Stretcher Limitations: No Limitations - History of Present Illness Initial Comments: Patient with substernal chest pain. Patient had an isolated pain episode approximately 12 hours earlier, but this was controlled with nitroglycerin taken sublingually, although patient had recurrence of pain approximately 1-2 hours prior to arrival. It has not been relieved with additional nitroglycerin , and patient comes in for further care. Pain is currently severe, "7-10 out of 10, is aching, and pressure-like, and radiates into his neck. It is not relieved by his nitroglycerin, not aggravated by movement, and patient is not short of breath. Patient has a past history of coronary artery disease, with prior myocardial infarctions, and had a catheterization/balloon procedure performed 4 weeks ago at the local [place] clinic. 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 -: Sudden (episodic, recurrent and persistent for the past hour), This afternoon Onset: during rest Pain Location: substernal Pain Radiation: neck Severity: severe Severity scale (0 -10): 10 Quality: tightness, heaviness, pressure Consistency: constant Worsens With: nothing re: nausea, vomting. denies: dyspnea Other Symptoms: denies: cough, fever, syncope Treatments Prior to Arrival: aspirin (given by EMS prior to arrival) Aspirin use within the Past 7 Days: (1) Yes - Related Data On Oral Contraceptives: No Home Medications Medication Instructions Recorded Confirmed Last Taken Carvedilol [Coreg] 25 mg PO DAILY 09/19/16 06/25/17 Unknown ISOSORBIDE MONOnitrate [Imdur ER] 60 mg PO DAILY 09/19/16 06/25/17 Unknown Ranolazine ER [Ranexa ER] 1,000 mg PO BID 09/19/16 06/25/17 Unknown hydrALAZINE [Apresoline TAB] 25 mg PO TID 09/19/16 06/25/17 Unknown Torsemide [Demadex] 20 mg PO DAILY 06/25/17 06/25/17 Unknown amLODIPine [Norvasc] 5 mg PO DAILY 06/25/17 06/25/17 Unknown Previous Rx's Medication Instructions Recorded Last Taken Type Aspirin EC [Aspirin Enteric Coated 325 mg PO QDAY #30 tablet 09/17/14 12/02/15 Rx TAB] Clopidogrel [Plavix] 75 mg PO QDAY #30 tablet 09/17/14 12/02/15 Rx Nitroglycerin [Nitrostat] 0.4 mg SL .Q5MIN PRN #25 tab 09/17/14 12/02/15 Rx Simvastatin [Zocor TAB] 20 mg PO QHS #30 tablet 12/06/15 Unknown Rx Temazepam 30 mg PO QHS #30 capsule 06/27/17 Unknown Rx Allergies Allergy/AdvReac Type Severity Reaction Status Date / Time Iodinated Contrast- Oral and Allergy Itching Verified 06/25/17 18:21 IV Dye [Iodinated Contrast Media - IV Dye] Heart Score - HEART Score History: Highly suspicious EKG: Non-specific Age: 45-65 Risk factors: > 3 risk factors or hx of atherosclerotic disease Troponin: < normal limit HEART Score: 6 ED Review of Systems ROS: Stated complaint: CHEST PAIN Other details as noted in HPI Comment: All other systems reviewed and negative Eyes: denies: eye pain, eye discharge, vision change ENT: denies: ear pain, throat pain Respiratory: denies: cough, shortness of breath, wheezing Cardiovascular: as per HPI, chest pain Endocrine: denies: excessive sweating, flushing, increased thirst, increased urine Gastrointestinal: nausea, vomiting. denies: abdominal pain Genitourinary: denies: urgency, dysuria Musculoskeletal: denies: back pain, joint swelling, arthralgia Skin: denies: rash, lesions Neurological: denies: headache, weakness, numbness Psychiatric: anxiety Hematological/Lymphatic: denies: easy bleeding, easy bruising ED Past Medical Hx - Past Medical History Previous Medical History?: Yes Hx Hypertension: Yes Hx CVA: Yes Hx Heart Attack/AMI: Yes (MIx4, S/P Cardiac stents x 6, CABG 1995,) Hx Congestive Heart Failure: Yes (ejection fraction unknown) Hx Diabetes: No Hx Deep Vein Thrombosis: No Hx Pulmonary Embolism: No Hx Liver Disease: No Hx Sickle Cell Disease: No Hx Seizures: No Hx Kidney Stones: No Hx Asthma: No Hx COPD: No Hx Tuberculosis: No Hx Dementia: No Hx HIV: No Additional medical history: high cholesterol. 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 - Social History Smoking Status: Never Smoker Substance Use Type: Alcohol - Medications Home Medications: Home Medications Medication Instructions Recorded Confirmed Last Taken Type Aspirin EC [Aspirin Enteric Coated 325 mg PO QDAY #30 tablet 09/17/14 06/25/17 12/02/15 Rx TAB] Clopidogrel [Plavix] 75 mg PO QDAY #30 tablet 09/17/14 06/25/17 12/02/15 Rx Nitroglycerin [Nitrostat] 0.4 mg SL .Q5MIN PRN #25 tab 09/17/14 06/25/17 Rx Simvastatin [Zocor TAB] 20 mg PO QHS #30 tablet 12/06/15 06/25/17 Unknown Rx Carvedilol [Coreg] 25 mg PO DAILY 09/19/16 06/25/17 Unknown History ISOSORBIDE MONOnitrate [Imdur ER] 60 mg PO DAILY 09/19/16 06/25/17 Unknown History Ranolazine ER [Ranexa ER] 1,000 mg PO BID 09/19/16 06/25/17 Unknown History hydrALAZINE [Apresoline TAB] 25 mg PO TID 09/19/16 06/25/17 Unknown History Torsemide [Demadex] 20 mg PO DAILY 06/25/17 06/25/17 Unknown History amLODIPine [Norvasc] 5 mg PO DAILY 06/25/17 06/25/17 Unknown History Temazepam 30 mg PO QHS #30 capsule 06/27/17 Unknown Rx ED Physical Exam - General Limitations: No Limitations General appearance: anxious, in distress - Head Head exam: Present: atraumatic - Eye Eye exam: Present: normal appearance, PERRL - ENT ENT exam: Present: normal exam - Neck Neck exam: Present: normal inspection. Absent: tenderness, meningismus - Respiratory Respiratory exam: Present: normal lung sounds bilaterally. Absent: wheezes, rales, rhonchi - Cardiovascular Cardiovascular Exam: Present: regular rate - GI/Abdominal GI/Abdominal exam: Present: soft. Absent: tenderness, guarding, rebound - Rectal Rectal exam: Present: deferred - Extremities Exam Extremities exam: Present: pedal edema (trace to 1+) - Back Exam Back exam: Present: normal inspection. Absent: CVA tenderness (L) - Neurological Exam Neurological exam: Present: alert, oriented X3. Absent: motor sensory deficit - Psychiatric Psychiatric exam: Present: agitated (secondary to acute pain), anxious - Skin Skin exam: Present: warm, dry ED Course Vital Signs 03/14/18 03/14/18 03/14/18 02:09 02:48 03:16 Temperature 98 F Pulse Rate 81 83 64 Respiratory 17 15 Rate Blood Pressure 201/93 180/91 139/70 Blood Pressure 201/93 [Right] O2 Sat by Pulse 98 98 Oximetry 03/14/18 04:00 Temperature Pulse Rate 67 Respiratory 19 Rate Blood Pressure 132/61 Blood Pressure [Right] O2 Sat by Pulse 97 Oximetry - Reevaluation(s) Reevaluation #1: 03/14/18 02:58 Patient experiencing significant improvement after treatment for pain with morphine, nausea with ondansetron, and repeat sublingual nitroglycerin with complete limitation of nitroglycerin drip. Repeat blood pressure is 180/90 Reevaluation #2: 03/14/18 04:18 Patient significantly improved with continued treatment with morphine, ondansetron, and additional sublingual nitroglycerin. Repeat blood pressure is 132/61, heart rate is 66 and regular, patient is resting much more comfortably. - Consultations Consultation #1: 03/14/18 04:34 Dr. Cardenas, hospitalist carton lettering machine operator, contacted, for admission of this patient with chest pain worrisome for underlying heart disease and non-STEMI. Patient is currently stable, and she accepts patient for admission at 0434 hrs. SHAWN score - Shawn Score Age > 65: (0) No Aspirin use within the Past 7 Days: (1) Yes 3 or more CAD Risk Factors: (1) Yes 2 or more Angina events in past 24 hrs: (1) Yes Known CAD with more than 50% Stenosis: (1) Yes (as per catheterization report 2013, patient had severe disease.) Elevated Cardiac Markers: (0) No ST Deviation Greater than 0.5mm: (0) No SHAWN Score: 4 ED Medical Decision Making - Lab Data Result diagrams: 03/14/18 02:28 03/14/18 02:58 - EKG Data EKG shows normal: sinus rhythm, axis (normal at 6), QRS complexes (borderline bundle branch block, nonspecific intraventricular conduction delay with repolarization changes), ST-T waves (repolarization changes in anterior limb leads, and anterolateral limb leads,) Rate: normal - EKG Data When compared to previous EKG there are: no significant change Interpretation: nonspecific ST-T wave jason (abnormal with no interval change since prior tracing of June 2017) - Radiology Data Radiology results: report reviewed No acute cardiopulmonary abnormality, prior sternotomy noted - Medical Decision Making Patient has known coronary artery disease, with recurrent episodes of chest pain typical for his cardiac disease this evening. He was rapidly controlled for discomfort, vital signs have remained stable, he has not needed a nitroglycerin drip, and initial troponin levels are negative. However given patient's significant risk factors, he will be hospitalization for observation, and perhaps additional testing. - Differential Diagnosis myocardial infarction, and STEMI, chest wall pain, pneumonia, ulnar embolis Critical care time in (mins) excluding proc time.: 30 (30 minutes of critical care time, exclusive of any procedures, of which there were none, provided for this patient with acute chest pain with past history of cardiac disease, suggestive of myocardial infarction.) Critical care attestation.: If time is entered above; I have spent that time in minutes in the direct care of this critically ill patient, excluding procedure time. ED Disposition Clinical Impression: Chest pain at rest CHF (congestive heart failure) Qualifiers: Heart failure type: unspecified Disposition: OP ADMIT IP TO THIS HOSP Condition: Stable Instructions: Chest Pain (ED) Referrals: ISSA CHANEL MD [Primary Care Provider] - 3-5 Days
[2018-03-14] MEDS ORDERED: NITROSTAT SL ONE (02:37)
[2018-03-14] MEDS ORDERED: NACL 0.9% 1000 ML 1,000 ML IV ONE (02:37)
[2018-03-14] MEDS: MORPHINE IV PRN ×2 (02:38→20:31)
[2018-03-14 02:41] LABS: Basophils # (Auto) 0.1 K/mm3 (0.0-0.1); Basophils % (Auto) 1.1 % (0.0-1.8); Eosinophils # (Auto) 0.1 K/mm3 (0.0-0.4); Eosinophils % (Auto) 1.8 % (0.0-4.3); Hematocrit 43.2 % (35.5-45.6); Hemoglobin 14.9 gm/dl (11.8-15.2); Lymphocytes # (Auto) 1.6 K/mm3 (1.2-5.4); Lymphocytes % (Auto) 21.2 % (13.4-35.0); Mean Corpuscular HGB Conc 35 % (32-34); Mean Corpuscular Hemoglobin 34 pg (28-32); Mean Corpuscular Volume 98 fl (84-94); Monocytes # (Auto) 0.6 K/mm3 (0.0-0.8); Monocytes % (Auto) 7.3 % (0.0-7.3); Platelet Count 171 K/mm3 (140-440); Red Blood Count 4.39 M/mm3 (3.65-5.03); Red Cell Distribution Width 14.1 % (13.2-15.2)
[2018-03-14 03:05] LABS: BUN/Creatinine Ratio 15; Blood Urea Nitrogen 15 mg/dL (9-20); Calcium 8.8 mg/dL (8.4-10.2); Hemolysis Index 63
[2018-03-14 03:17] LABS: INR 0.79 (0.87-1.13); Partial Thromboplastin Time 22.7 Sec. (24.2-36.6)
[2018-03-14 03:23] LABS: Albumin 4.5 g/dL (3.9-5); BUN/Creatinine Ratio 17; Blood Urea Nitrogen 15 mg/dL (9-20); Calcium 9.1 mg/dL (8.4-10.2); Hemolysis Index 110
--- NOTE | 2018-03-14 03:40 | XRay Report ---
FINAL REPORT EXAM: XR CHEST 1V AP HISTORY: Chest Pain TECHNIQUE: AP portable view of the chest. PRIORS: 08/29/2016 FINDINGS: Multiple sternotomy wires are noted. The cardiac silhouette is enlarged without change. The pulmonary vascularity appears normal. The lungs are clear. The bones and soft tissues are unremarkable. IMPRESSION: Stable cardiomegaly. No acute findings
[2018-03-14 03:53] LABS: Alanine Aminotransferase 17 units/L (7-56)
--- NOTE | 2018-03-14 04:58 | History and Physical Report ---
History of Present Illness Date of examination: 03/14/18 History of present illness: 62-year-old man history of hypertension, coronary artery disease, hyperlipidemia comes to the emergency room with complaints of chest pain. Chest pain started started yesterday, located in the epigastric area which he describes as a pressure-like sensation, constant, intensity 7/10 radiating to the jaw and left shoulder. He took 3 nitroglycerin which gave him relief. However the pain return and he called EMS . Patient had a cardiac past month at the [facility], he stated that he had a cleaned out the artery Review of systems Constitutional: no weight loss, chills Ears, eyes, nose, mouth and throat: no nasal congestion, no nasal discharge, no sinus pressure, no vision change, no red eye. Neck: No neck pain or rigidity. Cardiovascular:+chest pain, palpitations Respiratory: No cough, shortness of breath Gastrointestinal: no abdominal pain, hematochezia Genitourinary : no dysuria, frequency , no hematuria Musculoskeletal: no joint swelling or muscle ache Integumentary: no rash, no pruritis Neurological: no parathesias, no numbness, no focal weakness Endocrine: no cold or heat intolerance, no polyuria or polydipsia Hematologic/Lymphatic: no easy bruising, no easy bleeding, no gland swelling Allergic/Immunologic: no urticaria, no angioedema. PAST MEDICAL HISTORY: hypertension, coronary artery disease, hyperlipidemia PAST SURGICAL HISTORY: CABG, ileostomy with reversal SOCIAL HISTORY: Denies tobacco, quit quit drugs, occasional alcohol FAMILY HISTORY: Hypertension Medications and Allergies Allergies Allergy/AdvReac Type Severity Reaction Status Date / Time Iodinated Contrast- Oral and Allergy Itching Verified 06/25/17 18:21 IV Dye [Iodinated Contrast Media - IV Dye] Home Medications Medication Instructions Recorded Confirmed Last Taken Type Aspirin EC [Aspirin Enteric Coated 325 mg PO QDAY #30 tablet 09/17/14 03/14/18 12/02/15 Rx TAB] Clopidogrel [Plavix] 75 mg PO QDAY #30 tablet 09/17/14 03/14/18 12/02/15 Rx Nitroglycerin [Nitrostat] 0.4 mg SL .Q5MIN PRN #25 tab 09/17/14 03/14/18 Rx Carvedilol [Coreg] 25 mg PO DAILY 09/19/16 03/14/18 Unknown History ISOSORBIDE MONOnitrate [Imdur ER] 60 mg PO DAILY 09/19/16 03/14/18 Unknown History Ranolazine ER [Ranexa ER] 1,000 mg PO BID 09/19/16 03/14/18 Unknown History hydrALAZINE [Apresoline TAB] 25 mg PO TID 09/19/16 03/14/18 Unknown History Torsemide [Demadex] 20 mg PO DAILY 06/25/17 03/14/18 Unknown History amLODIPine [Norvasc] 5 mg PO DAILY 06/25/17 03/14/18 Unknown History Temazepam 30 mg PO QHS #30 capsule 06/27/17 03/14/18 Unknown Rx Active Meds: Active Medications Sodium Chloride (Nacl 0.9% 1000 Ml) 1,000 mls @ 42 mls/hr IV ONCE ONE Stop: 03/15/18 02:25 Last Admin: 03/14/18 03:04 Dose: 42 mls/hr Nitroglycerin/Dextrose (Tridil Drip 50mg/250ml) 50 mg in 250 mls @ 33 mls/hr IV TITR [place]; Protocol Morphine Sulfate (Morphine) 4 mg IV Q5MIN PRN PRN Reason: Chest Pain Last Admin: 03/14/18 02:38 Dose: 4 mg Exam - Physical Exam Narrative exam: Gen. appearance: Patient lying in bed, no apparent distress HEENT: Normocephalic, atraumatic, pupils equally round and reactive to light, extraocular movement intact, and no sclericterus,. No JVD or thyromegaly or nodule,neck supple, no carotid bruit ,mucous membranes moist, no exudate or erythema Heart: S1, S2, regular rate and rhythm Lungs: Clear to auscultation bilaterally, breathing comfortable Abdomen: Positive bowel sounds, nontender, nondistended, no organomegaly Extremity: No edema, cyanosis, clubbing Skin: No rash, nodules, warm, dry Neuro: Oriented 3, cranial nerves II-12 intact, speech is fluent, motor and sensory intact - Constitutional Vitals: Temp Pulse Resp BP Pulse Ox 98.1 F 67 19 132/61 97 03/14/18 02:09 03/14/18 04:00 03/14/18 04:00 03/14/18 04:00 03/14/18 04:00 Results - Labs CBC & Chem 7: 03/14/18 02:28 03/14/18 02:58 Labs: Abnormal lab results 03/14/18 03/14/18 03/14/18 Range/Units 02:28 02:28 02:58 MCV 98 H (84-94) fl MCH 34 H (28-32) pg MCHC 35 H (32-34) % PT 11.3 L (12.2-14.9) Sec. INR 0.79 L (0.87-1.13) APTT 22.7 L (24.2-36.6) Sec. Sodium 136 L (137-145) mmol/L Glucose 134 H (75-100) mg/dL Alkaline Phosphatase (35-129) units/L Digoxin (0.9-2.0) ng/mL 03/14/18 03/14/18 Range/Units 02:58 02:58 MCV (84-94) fl MCH (28-32) pg MCHC (32-34) % PT (12.2-14.9) Sec. INR (0.87-1.13) APTT (24.2-36.6) Sec. Sodium (137-145) mmol/L Glucose 129 H (75-100) mg/dL Alkaline Phosphatase 132 H (35-129) units/L Digoxin 0.3 L (0.9-2.0) ng/mL - Imaging and Cardiology EKG: image reviewed Chest x-ray: image reviewed Assessment and Plan Assessment Unstable angina Coronary artery disease Hypertension Hyperlipidemia Admit to medicine Consult cardiology, Check cardiac enzymes, continue nitroglycerin drip Continue appropiate outpatient medications and start DVT prophylaxis
[2018-03-14] MEDS ORDERED: ZOFRAN IV PRN (05:00)
[2018-03-14] MEDS ORDERED: TYLENOL PO PRN (05:00)
[2018-03-14] MEDS ORDERED: SODIUM CHLORIDE FLUSH SYRINGE 10 ML IV PRN (05:00)
[2018-03-14 06:42] LABS: Chol/HDL Ratio 3.22 %
[2018-03-14] MEDS ORDERED: HEPARIN 10,000 UNITS/10 ML IV ONE (09:56)
[2018-03-14] MEDS ORDERED: COREG PO SCH (10:00)
[2018-03-14] MEDS ORDERED: LOVENOX SUB-Q SCH (10:00)
--- NOTE | 2018-03-14 10:14 | Consultation ---
History of Present Illness Consult date: 03/14/18 Requesting physician: MANNIE ROMERO Consult reason: elevated troponin History of present illness: This is a 62-year-old gentleman with known history of coronary disease diastolic dysfunction has had frequent admissions in the [facility] system and at [facility] with history of hypertension hyperlipidemia coronary disease patient had an angioplasty of his SVG to with a drug-eluting resolution 2.5 x 30 mm in April 2017 patient presented back to [facility] with chest pain with negative troponins and was discharged in September patient had also admission to [facility] in June and was treated medically patient in January he had angioplasty at the [facility] for similar type chest pain that was relieved after procedure. Patient states for the last 2 days having midsternal chest pressure nonradiating comes emergency room with elevated blood pressure received nitroglycerin with partial relief patient stopped some mild discomfort in his chest with troponin elevation with EKG changes suggestive of ischemia. Patient denies any nausea or vomiting or palpitations or syncope patient has chronic shortness of breath with exertion Of note, pt recently underwent LHC with PCI for NSTEMI at [facility] on 05/12/2017 which showed severe 3-vessel coronary artery disease with PCI SVG to OM. Drug- eluting resolution 2.5 x 30 mm Pt was also recently discharged from [facility] on 2016 following treatment for HF. Pt had TMLR done in 03/2015 at [facility] for recurrent angina. Pt had RHC in 2015 which revealed elevated intracardiac filling pressures, mild pulmonary hypertension mostly secondary to left heart disease, and low normal cardiac output. Echo done 05/14/2017 showed EF 50 - 55%, hypokinetic apex and distal septum. Patient's primary care doctor is through the [facility]. His orthopedically impaired teacher is a Dr. Herzog through [facility]. Past History Past Medical History: CAD, hypertension, hyperlipidemia Past Surgical History: CABG, Other (angioplasty and T mr) Social history: no significant social history Medications and Allergies Allergies Allergy/AdvReac Type Severity Reaction Status Date / Time Iodinated Contrast- Oral and Allergy Itching Verified 06/25/17 18:21 IV Dye [Iodinated Contrast Media - IV Dye] Home Medications Medication Instructions Recorded Confirmed Last Taken Type Aspirin EC [Aspirin Enteric Coated 325 mg PO QDAY #30 tablet 09/17/14 03/14/18 12/02/15 Rx TAB] Clopidogrel [Plavix] 75 mg PO QDAY #30 tablet 09/17/14 03/14/18 12/02/15 Rx Nitroglycerin [Nitrostat] 0.4 mg SL .Q5MIN PRN #25 tab 09/17/14 03/14/18 Rx Carvedilol [Coreg] 25 mg PO DAILY 09/19/16 03/14/18 Unknown History ISOSORBIDE MONOnitrate [Imdur ER] 60 mg PO DAILY 09/19/16 03/14/18 Unknown History Ranolazine ER [Ranexa ER] 1,000 mg PO BID 09/19/16 03/14/18 Unknown History hydrALAZINE [Apresoline TAB] 25 mg PO TID 09/19/16 03/14/18 Unknown History Torsemide [Demadex] 20 mg PO DAILY 06/25/17 03/14/18 Unknown History amLODIPine [Norvasc] 5 mg PO DAILY 06/25/17 03/14/18 Unknown History Temazepam 30 mg PO QHS #30 capsule 06/27/17 03/14/18 Unknown Rx Active Meds: Active Medications Acetaminophen (Tylenol) 650 mg PO Q4H PRN PRN Reason: Pain MILD(1-3)/Fever >100.5/GIORDANO Amlodipine Besylate (Norvasc) 5 mg PO DAILY [place] Aspirin (Baby Aspirin) 81 mg PO QDAY [place] Atorvastatin Calcium (Lipitor) 80 mg PO QHS [place] Carvedilol (Coreg) 25 mg PO BID [place] Clopidogrel Bisulfate (Plavix) 75 mg PO QDAY [place] Sodium Chloride (Nacl 0.9% 1000 Ml) 1,000 mls @ 42 mls/hr IV ONCE ONE Stop: 03/15/18 02:25 Last Admin: 03/14/18 03:04 Dose: 42 mls/hr Nitroglycerin/Dextrose (Tridil Drip 50mg/250ml) 50 mg in 250 mls @ 6 mls/hr IV TITR SHE[place]TON; Protocol Heparin Sodium/Sodium Chloride (Heparin/ 0.45% Nacl-25,000 Unit/500 Ml) 25,000 unit in 500 mls @ 20 mls/hr IV TITRATE SHE[place]TON; Protocol Morphine Sulfate (Morphine) 4 mg IV Q5MIN PRN PRN Reason: Chest Pain Last Admin: 03/14/18 02:38 Dose: 4 mg Morphine Sulfate (Morphine) 2 mg IV Q4H PRN PRN Reason: Pain, Moderate (4-6) Ondansetron HCl (Zofran) 4 mg IV Q8H PRN PRN Reason: Nausea And Vomiting Ranolazine (Ranexa Er) 1,000 mg PO BID SHE[place] Sodium Chloride (Sodium Chloride Flush Syringe 10 Ml) 10 ml IV BID [place] Sodium Chloride (Sodium Chloride Flush Syringe 10 Ml) 10 ml IV PRN PRN PRN Reason: LINE FLUSH Temazepam (Restoril) 30 mg PO QHS [place] Torsemide (Demadex) 20 mg PO DAILY [place] Review of Systems All systems: negative (as per the HPI) Physical Examination Vital Signs Temp Pulse Resp BP Pulse Ox 98.1 F 81 17 201/93 98 03/14/18 02:09 03/14/18 02:09 03/14/18 02:09 03/14/18 02:09 03/14/18 02:09 General appearance: no acute distress, well-nourished HEENT: Positive: PERRL, Mucus Membranes Moist Neck: Positive: neck supple, trachea midline Cardiac: Positive: Reg Rate and Rhythm, S1/S2. Negative: Audible Murmur Lungs: Positive: clear to auscultation, Normal Breath Sounds Neuro: Positive: Grossly Intact Abdomen: Positive: Soft, Active Bowel Sounds. Negative: Tender, Distended Male genitourinary: Positive: normal Skin: Positive: Clear Incision: Cardiac Cath Site Musculoskeletal: No Pain, Normal Range of Motion Extremities: Present: normal, edema (trace) Results 03/14/18 02:28 03/14/18 02:58 Cardiac Enzymes 03/14/18 Range/Units 02:58 AST 24 (5-40) units/L Coagulation 03/14/18 Range/Units 02:58 PT 11.3 L (12.2-14.9) Sec. INR 0.79 L (0.87-1.13) APTT 22.7 L (24.2-36.6) Sec. Lipids 03/14/18 Range/Units 04:57 Triglycerides 77 (2-149) mg/dL Cholesterol 197 (50-199) mg/dL HDL Cholesterol 61 H (40-59) mg/dL Cholesterol/HDL Ratio 3.22 % CBC 04/21/18 Range/Units 02:28 WBC 7.6 (4.5-11.0) K/mm3 RBC 4.39 (3.65-5.03) M/mm3 Hgb 14.9 (11.8-15.2) gm/dl Hct 43.2 (35.5-45.6) % Plt Count 171 (140-440) K/mm3 Lymph # 1.6 (1.2-5.4) K/mm3 [place] # 0.6 (0.0-0.8) K/mm3 Eos # 0.1 (0.0-0.4) K/mm3 Baso # 0.1 (0.0-0.1) K/mm3 Comprehensive Metabolic Panel 03/14/18 03/14/18 Range/Units 02:28 02:58 Sodium 136 L 137 (137-145) mmol/L Potassium 4.4 4.5 (3.6-5.0) mmol/L Chloride 98.6 98.2 (98-107) mmol/L Carbon Dioxide 23 22 (22-30) mmol/L BUN 15 15 (9-20) mg/dL Creatinine 1.0 0.9 (0.8-1.5) mg/dL Glucose 134 H 129 H (75-100) mg/dL Calcium 8.8 9.1 (8.4-10.2) mg/dL AST 24 (5-40) units/L ALT 17 (7-56) units/L Alkaline Phosphatase 132 H (35-129) units/L Total Protein 7.4 (6.3-8.2) g/dL Albumin 4.5 (3.9-5) g/dL - Imaging and Cardiology Cardiac cath: report reviewed (04/2017 left main 30% LAD mid 100% patent JARRELL to LAD and circumflex patent OM1 95% in-stent stenosis PCI of SVG to OM1 and a drug -eluting wrestler 2.5 x 30 RC 100% with patent SVG to PDA normal LV function) EKG interpretations - Telemetry EKG Rhythm: Sinus Rhythm (#1 normal sinus rhythm nonspecific ST-T mild ST depression #2 normal sinus rhythm with T-wave inversion in anterior lateral leads) Assessment and Plan Non-ST elevation myocardial infarction type II Unstable angina Acute diastolic dysfunction History of hypertension obesity hyperlipidemia coronary disease rec: IV nitroglycerin as patient has become refractory to nitroglycerin sublingual IV heparin continue dual antiplatelet therapy high-dose statin continue carvedilol and amlodipine follow-up troponin labs and echocardiogram
[2018-03-14] MEDS: SODIUM CHLORIDE FLUSH SYRINGE 10 ML IV SCH (10:30)
[2018-03-14] MEDS: BABY ASPIRIN PO SCH (10:42)
[2018-03-14] MEDS: COREG PO SCH ×2 (10:45→21:43)
[2018-03-14] MEDS: DEMADEX PO SCH (10:45)
[2018-03-14] MEDS: PLAVIX PO SCH (10:46)
[2018-03-14] MEDS: RANEXA ER PO SCH (10:46)
[2018-03-14] MEDS: NORVASC PO SCH (10:46)
--- NOTE | 2018-03-14 12:14 | Event Note ---
Date: 03/14/18 Patient seen and examined. We will continue the plan as outlined in H&P and by cardiology consultation. Additional 32 minutes after admission with follow-up evaluation.
[2018-03-14] MEDS: HEPARIN/ 0.45% NACL-25,000 UNIT/500 ML 25,000 UNIT/500 ML BAG IV SCH (12:18)
[2018-03-14] MEDS: TRIDIL DRIP 50MG/250ML 50 MG/250 ML BOTTLE IV SCH (12:36)
[2018-03-14 15:18] LABS: Hemoglobin 13.1 gm/dl (11.8-15.2)
[2018-03-14 15:27] LABS: INR 0.9 (0.87-1.13)
[2018-03-14 15:32] LABS: Partial Thromboplastin Time 82.6 Sec. (24.2-36.6)
[2018-03-14] MEDS: RESTORIL PO SCH (21:41)
[2018-03-15] MEDS: MORPHINE IV PRN ×4 (04:33→20:19)
[2018-03-15 04:57] LABS: Basophils % (Auto) 0.6 % (0.0-1.8); Eosinophils # (Auto) 0.2 K/mm3 (0.0-0.4); Eosinophils % (Auto) 3.2 % (0.0-4.3); Hematocrit 41.9 % (35.5-45.6); Hemoglobin 14.7 gm/dl (11.8-15.2); Lymphocytes # (Auto) 1.6 K/mm3 (1.2-5.4); Lymphocytes % (Auto) 23.7 % (13.4-35.0); Mean Corpuscular HGB Conc 35 % (32-34); Mean Corpuscular Hemoglobin 35 pg (28-32); Mean Corpuscular Volume 99 fl (84-94); Monocytes # (Auto) 0.5 K/mm3 (0.0-0.8); Platelet Count 184 K/mm3 (140-440); Red Blood Count 4.25 M/mm3 (3.65-5.03); Red Cell Distribution Width 14.4 % (13.2-15.2)
[2018-03-15 05:43] LABS: Alanine Aminotransferase 17 units/L (7-56); Albumin 3.7 g/dL (3.9-5); BUN/Creatinine Ratio 12; Blood Urea Nitrogen 12 mg/dL (9-20); Calcium 8.6 mg/dL (8.4-10.2); Hemolysis Index 26
[2018-03-15] MEDS: COREG PO SCH ×2 (09:35→21:53)
[2018-03-15] MEDS: PLAVIX PO SCH (09:45)
[2018-03-15] MEDS: DEMADEX PO SCH (09:45)
[2018-03-15] MEDS: NORVASC PO SCH (09:45)
[2018-03-15] MEDS: BABY ASPIRIN PO SCH (09:45)
[2018-03-15] MEDS: RANEXA ER PO SCH ×3 (09:45→21:52)
--- NOTE | 2018-03-15 10:41 | Consultation ---
History of Present Illness Consult date: 03/15/18 Requesting physician: MANNIE ROMERO Past History Past Medical History: CAD, hypertension, hyperlipidemia Past Surgical History: CABG, Other (angioplasty and T mr) Social history: no significant social history Medications and Allergies Allergies Allergy/AdvReac Type Severity Reaction Status Date / Time Iodinated Contrast- Oral and Allergy Itching Verified 06/25/17 18:21 IV Dye [Iodinated Contrast Media - IV Dye] Home Medications Medication Instructions Recorded Confirmed Last Taken Type Aspirin EC [Aspirin Enteric Coated 325 mg PO QDAY #30 tablet 09/17/14 03/14/18 12/02/15 Rx TAB] Clopidogrel [Plavix] 75 mg PO QDAY #30 tablet 09/17/14 03/14/18 12/02/15 Rx Nitroglycerin [Nitrostat] 0.4 mg SL .Q5MIN PRN #25 tab 09/17/14 03/14/18 Rx Carvedilol [Coreg] 25 mg PO DAILY 09/19/16 03/14/18 Unknown History ISOSORBIDE MONOnitrate [Imdur ER] 60 mg PO DAILY 09/19/16 03/14/18 Unknown History Ranolazine ER [Ranexa ER] 1,000 mg PO BID 09/19/16 03/14/18 Unknown History hydrALAZINE [Apresoline TAB] 25 mg PO TID 09/19/16 03/14/18 Unknown History Torsemide [Demadex] 20 mg PO DAILY 06/25/17 03/14/18 Unknown History amLODIPine [Norvasc] 5 mg PO DAILY 06/25/17 03/14/18 Unknown History Temazepam 30 mg PO QHS #30 capsule 06/27/17 03/14/18 Unknown Rx Active Meds: Active Medications Acetaminophen (Tylenol) 650 mg PO Q4H PRN PRN Reason: Pain MILD(1-3)/Fever >100.5/GIORDANO Amlodipine Besylate (Norvasc) 5 mg PO DAILY [facility] Last Admin: 03/14/18 10:46 Dose: 5 mg Aspirin (Baby Aspirin) 81 mg PO QDAY [facility] Last Admin: 03/14/18 10:42 Dose: 81 mg Atorvastatin Calcium (Lipitor) 80 mg PO QHS [facility] Last Admin: 03/14/18 21:41 Dose: 80 mg Carvedilol (Coreg) 25 mg PO BID [facility] Last Admin: 03/14/18 21:43 Dose: 25 mg Clopidogrel Bisulfate (Plavix) 75 mg PO QDAY [facility] Last Admin: 03/14/18 10:46 Dose: 75 mg Nitroglycerin/Dextrose (Tridil Drip 50mg/250ml) 50 mg in 250 mls @ 6 mls/hr IV TITR [facility]; Protocol Last Titration: 03/14/18 15:00 Dose: 30 mcg/min, 9 mls/hr Heparin Sodium/Sodium Chloride (Heparin/ 0.45% Nacl-25,000 Unit/500 Ml) 25,000 unit in 500 mls @ 20 mls/hr IV TITRATE [facility]; Protocol Last Admin: 03/14/18 12:18 Dose: 1,000 units/hr, 20 mls/hr Morphine Sulfate (Morphine) 4 mg IV Q5MIN PRN PRN Reason: Chest Pain Last Admin: 03/15/18 04:33 Dose: 4 mg Morphine Sulfate (Morphine) 2 mg IV Q4H PRN PRN Reason: Pain, Moderate (4-6) Last Admin: 03/15/18 08:25 Dose: 2 mg Ondansetron HCl (Zofran) 4 mg IV Q8H PRN PRN Reason: Nausea And Vomiting Ranolazine (Ranexa Er) 1,000 mg PO BID [facility] Last Admin: 03/14/18 10:46 Dose: 1,000 mg Sodium Chloride (Sodium Chloride Flush Syringe 10 Ml) 10 ml IV BID [facility] Last Admin: 03/14/18 10:30 Dose: 10 ml Sodium Chloride (Sodium Chloride Flush Syringe 10 Ml) 10 ml IV PRN PRN PRN Reason: LINE FLUSH Temazepam (Restoril) 30 mg PO QHS [facility] Last Admin: 03/14/18 21:41 Dose: 30 mg Torsemide (Demadex) 20 mg PO DAILY [facility] Last Admin: 03/14/18 10:45 Dose: 20 mg Physical Examination Vital signs: Vital Signs Temp Pulse Resp BP Pulse Ox 98.1 F 81 17 201/93 98 03/14/18 02:09 03/14/18 02:09 03/14/18 02:09 03/14/18 02:09 03/14/18 02:09 Results - Laboratory Findings CBC and BMP: 03/15/18 04:04 03/15/18 04:04 PT/INR, D-dimer PT 12.6 Sec. (12.2-14.9) 03/14/18 15:00 INR 0.90 (0.87-1.13) 03/14/18 15:00 D-Dimer < 135 ng/mlDDU (0-234) 03/14/18 02:58 Abnormal lab findings: Abnormal Labs 03/14/18 03/14/18 03/14/18 02:28 02:28 02:58 MCV 98 H MCH 34 H MCHC 35 H PT 11.3 L INR 0.79 L APTT 22.7 L Heparin Anti-Xa Level Sodium 136 L Glucose 134 H Alkaline Phosphatase Total Creatine Kinase CK-MB (CK-2) Troponin T Albumin HDL Cholesterol Digoxin 03/14/18 03/14/18 03/14/18 02:58 02:58 04:57 MCV MCH MCHC PT INR APTT Heparin Anti-Xa Level Sodium Glucose 129 H Alkaline Phosphatase 132 H Total Creatine Kinase CK-MB (CK-2) Troponin T 0.077 H D Albumin HDL Cholesterol 61 H Digoxin 0.3 L 03/14/18 03/14/18 03/14/18 14:57 14:58 15:00 MCV MCH MCHC PT INR APTT 82.6 H* Heparin Anti-Xa Level Sodium Glucose Alkaline Phosphatase Total Creatine Kinase 304 H CK-MB (CK-2) 9.0 H Troponin T 0.319 H* D 0.304 H* Albumin HDL Cholesterol Digoxin 03/14/18 03/15/18 03/15/18 17:40 04:04 04:04 MCV 99 H MCH 35 H MCHC 35 H PT INR APTT Heparin Anti-Xa Level 0.27 L Sodium Glucose Alkaline Phosphatase Total Creatine Kinase CK-MB (CK-2) Troponin T 0.204 H* D Albumin 3.7 L HDL Cholesterol Digoxin 03/15/18 07:23 MCV MCH MCHC PT INR APTT Heparin Anti-Xa Level 0.27 L Sodium Glucose Alkaline Phosphatase Total Creatine Kinase CK-MB (CK-2) Troponin T Albumin HDL Cholesterol Digoxin
--- NOTE | 2018-03-15 11:14 | Progress Note ---
Assessment and Plan Non-ST elevation myocardial infarction type II Unstable angina Acute diastolic dysfunction History of hypertension obesity hyperlipidemia coronary disease ischemic cardiomypoathy acute respiratory failure rec: cardiac cath in am , ef is now 35% with wall motion abnormality had losartan 25 mg continue with carvedilol and diuretics continue IV nitroglycerin for chest pain titrated as needed DC heparin a.m. for a cardiac cath in a.m. discussed with the patient in detail we'll premedicate the patient for iv dye allergy Subjective Date of service: 03/15/18 Principal diagnosis: nstemi Interval history: pt chest pain has improved from admission. Objective Vital Signs Temp Pulse Pulse Resp BP BP Pulse Ox 03/15/18 08:00 97.6 F 03/15/18 06:00 55 L 12 121/62 99 03/15/18 05:30 56 L 17 121/63 95 03/15/18 05:00 55 L 18 105/55 97 03/15/18 04:30 47 L 10 L 131/70 99 03/15/18 04:08 97.7 F 03/15/18 04:00 57 L 14 140/56 95 03/15/18 03:30 54 L 17 131/65 96 03/15/18 03:00 55 L 13 126/67 96 03/15/18 02:46 53 L 12 105/60 95 03/15/18 02:30 54 L 17 105/60 96 03/15/18 02:00 52 L 18 98/51 94 03/15/18 01:30 52 L 17 126/59 95 03/15/18 01:00 54 L 17 114/58 95 03/15/18 00:30 58 L 12 114/58 93 03/15/18 00:10 97.6 F 03/15/18 00:00 56 L 16 117/57 93 03/14/18 23:43 18 03/14/18 23:42 62 20 03/14/18 23:30 55 L 16 130/66 94 03/14/18 23:00 54 L 14 140/64 98 03/14/18 22:54 60 9 L 140/64 98 03/14/18 22:30 61 13 141/75 96 03/14/18 22:00 58 L 16 150/73 96 03/14/18 21:30 60 13 143/78 98 03/14/18 21:00 58 L 18 143/78 94 03/14/18 20:30 56 L 16 155/81 97 03/14/18 20:22 96.6 F L 03/14/18 20:00 60 13 155/81 98 03/14/18 19:50 61 11 L 155/81 97 03/14/18 19:43 97.6 F 59 L 18 147/59 98 03/14/18 19:42 59 L 18 03/14/18 19:40 57 L 12 155/81 99 03/14/18 19:30 57 L 12 155/81 98 03/14/18 19:20 51 L 13 155/81 03/14/18 19:10 62 19 155/81 99 03/14/18 19:00 55 L 20 155/81 98 03/14/18 18:50 61 20 155/81 99 03/14/18 18:40 58 L 8 L 155/81 98 03/14/18 18:30 63 14 132/63 96 03/14/18 18:20 58 L 17 132/63 97 03/14/18 18:10 53 L 15 132/63 96 03/14/18 18:00 54 L 16 132/63 97 03/14/18 17:50 56 L 12 132/63 99 03/14/18 17:40 60 12 132/63 98 03/14/18 17:30 55 L 15 132/63 97 03/14/18 17:20 58 L 15 132/63 97 03/14/18 17:10 51 L 16 134/68 97 03/14/18 17:00 52 L 15 134/68 97 03/14/18 16:50 50 L 15 134/68 97 03/14/18 16:40 51 L 17 143/65 96 03/14/18 16:30 54 L 15 143/65 97 03/14/18 16:20 55 L 16 134/72 96 03/14/18 16:10 59 L 17 145/74 97 03/14/18 16:00 97.9 F 56 L 15 145/74 96 03/14/18 15:50 56 L 16 145/74 96 03/14/18 15:40 66 9 L 145/74 100 03/14/18 15:30 61 20 145/74 97 03/14/18 15:20 57 L 8 L 145/74 98 03/14/18 15:10 49 L 11 L 154/64 98 03/14/18 15:00 58 L 16 154/64 94 03/14/18 14:50 57 L 10 L 154/64 98 03/14/18 14:40 55 L 13 154/64 98 03/14/18 14:30 62 11 L 140/80 98 03/14/18 14:20 56 L 10 L 140/80 99 03/14/18 14:10 56 L 10 L 147/71 100 03/14/18 14:00 58 L 15 157/74 100 03/14/18 13:40 52 L 13 100 03/14/18 13:32 59 L 19 03/14/18 13:30 97.8 F 03/14/18 13:10 97.7 F 50 L 16 128/61 97 03/14/18 13:00 47 L 16 128/61 98 03/14/18 12:00 59 L 13 177/83 100 - Physical Examination General: No Apparent Distress HEENT: Positive: PERRL, Mucus Membranes Moist Neck: Positive: neck supple, trachea midline Cardiac: Positive: Reg Rate and Rhythm Lungs: Positive: clear to auscultation Neuro: Positive: Grossly Intact Abdomen: Positive: Soft, Active Bowel Sounds. Negative: Tender, Distended Skin: Positive: Clear Incision: Cardiac Cath Site Musculoskeletal: No Pain, Normal Range of Motion Extremities: Present: normal. Absent: edema - Labs and Meds Cardiac Enzymes 03/14/18 03/15/18 Range/Units 14:57 04:04 AST 24 (5-40) units/L CK-MB (CK-2) 9.0 H (0.0-4.0) ng/mL Coagulation 03/14/18 Range/Units 15:00 PT 12.6 (12.2-14.9) Sec. INR 0.90 (0.87-1.13) APTT 82.6 H* (24.2-36.6) Sec. CBC 03/14/18 03/15/18 Range/Units 14:59 04:04 WBC 6.6 (4.5-11.0) K/mm3 RBC 4.25 (3.65-5.03) M/mm3 Hgb 13.1 14.7 (11.8-15.2) gm/dl Hct 39.0 41.9 (35.5-45.6) % Plt Count 178 184 (140-440) K/mm3 Lymph # 1.6 (1.2-5.4) K/mm3 [place] # 0.5 (0.0-0.8) K/mm3 Eos # 0.2 (0.0-0.4) K/mm3 Baso # 0.0 (0.0-0.1) K/mm3 Comprehensive Metabolic Panel 03/15/18 Range/Units 04:04 Sodium 138 (137-145) mmol/L Potassium 3.8 (3.6-5.0) mmol/L Chloride 98.9 (98-107) mmol/L Carbon Dioxide 22 (22-30) mmol/L BUN 12 (9-20) mg/dL Creatinine 1.0 (0.8-1.5) mg/dL Glucose 89 (75-100) mg/dL Calcium 8.6 (8.4-10.2) mg/dL AST 24 (5-40) units/L ALT 17 (7-56) units/L Alkaline Phosphatase 109 (35-129) units/L Total Protein 6.6 (6.3-8.2) g/dL Albumin 3.7 L (3.9-5) g/dL - Imaging and Cardiology EKG: image reviewed Echo: report reviewed (Of note, pt recently underwent LHC with PCI for NSTEMI at [facility] on 05/12/2017 which showed severe 3-vessel coronary artery disease with PCI SVG to OM. Drug-eluting resolution 2.5 x 30 mm Pt was also recently discharged from [facility] on 06/20/2017 following treatment for HF. ), other (2017 ef 30-35% with septal hypokinesis and inferior wall hypokinesis) Cardiac cath: report reviewed (04/2017 left main 30% LAD mid 100% patent JARRELL to LAD and circumflex patent OM1 95% in-stent stenosis PCI of SVG to OM1 and a drug -eluting wrestler 2.5 x 30 RC 100% with patent SVG to PDA normal LV function) - Telemetry EKG Rhythm: Sinus Bradycardia
[2018-03-15] MEDS ORDERED: NACL 0.9% 500 ML 500 ML IV SCH (12:00)
[2018-03-15] MEDS: COZAAR PO SCH (12:49)
[2018-03-15] MEDS: PEPCID PO SCH ×2 (12:53→21:52)
[2018-03-15] MEDS: TRIDIL DRIP 50MG/250ML 50 MG/250 ML BOTTLE IV SCH (12:54)
[2018-03-15] MEDS: HEPARIN/ 0.45% NACL-25,000 UNIT/500 ML 25,000 UNIT/500 ML BAG IV SCH (13:00)
--- NOTE | 2018-03-15 13:18 | Progress Note ---
Assessment and Plan Assessment and plan: Non-ST elevation myocardial infarction type II. Cardiology plans to perform cardiac cath in a.m. Coronary artery disease/Unstable angina. Continue per chest pain protocol. Continue IV heparin and nitroglycerin. Acute diastolic heart failure/ischemic cardiomyopathy. EF is now 35% with wall motion abnormality. Continue with beta hector, losartan and diuresis. Hypertension. As above. Continue antihypertensive medications. Obesity. Patient will be counseled on diet and exercise prior to discharge. Hyperlipidemia. Continue antilipid agents. Acute hypoxemic respiratory failure. Etiology secondary to diastolic heart failure. Continue O2 for supportive care. BiPAP as clinically indicated. History Interval history: No new issues overnight. Hospitalist Physical - Constitutional Vitals: Temp Pulse Resp BP Pulse Ox 98.0 F 66 12 156/77 99 03/15/18 12:00 03/15/18 12:49 03/15/18 06:00 03/15/18 12:49 03/15/18 06:00 General appearance: Present: no acute distress, well-nourished - EENT Eyes: Present: PERRL, EOM intact ENT: hearing intact, clear oral mucosa, dentition normal - Neck Neck: Present: supple, normal ROM - Respiratory Respiratory effort: normal Respiratory: bilateral: CTA - Cardiovascular Rhythm: regular Heart Sounds: Present: S1 & S2. Absent: gallop, rub - Extremities Extremities: no ischemia, No edema, Full ROM - Abdominal General gastrointestinal: soft, non-tender, non-distended, normal bowel sounds - Integumentary Integumentary: Present: clear, warm, dry - Neurologic Neurologic: CNII-XII intact, moves all extremities Results - Labs CBC & Chem 7: 03/15/18 04:04 03/15/18 04:04 Labs: Laboratory Last Values WBC 6.6 K/mm3 (4.5-11.0) 03/15/18 04:04 RBC 4.25 M/mm3 (3.65-5.03) 03/15/18 04:04 Hgb 14.7 gm/dl (11.8-15.2) 03/15/18 04:04 Hct 41.9 % (35.5-45.6) 03/15/18 04:04 MCV 99 fl (84-94) H 03/15/18 04:04 MCH 35 pg (28-32) H 03/15/18 04:04 MCHC 35 % (32-34) H 03/15/18 04:04 RDW 14.4 % (13.2-15.2) 03/15/18 04:04 Plt Count 184 K/mm3 (140-440) 03/15/18 04:04 Lymph % (Auto) 23.7 % (13.4-35.0) 03/15/18 04:04 [place] % (Auto) 7.0 % (0.0-7.3) 03/15/18 04:04 Eos % (Auto) 3.2 % (0.0-4.3) 03/15/18 04:04 Baso % (Auto) 0.6 % (0.0-1.8) 03/15/18 04:04 Lymph # 1.6 K/mm3 (1.2-5.4) 03/15/18 04:04 [place] # 0.5 K/mm3 (0.0-0.8) 03/15/18 04:04 Eos # 0.2 K/mm3 (0.0-0.4) 03/15/18 04:04 Baso # 0.0 K/mm3 (0.0-0.1) 03/15/18 04:04 Seg Neutrophils % 65.5 % (40.0-70.0) 03/15/18 04:04 Seg Neutrophils # 4.3 K/mm3 (1.8-7.7) 03/15/18 04:04 PT 12.6 Sec. (12.2-14.9) 03/14/18 15:00 INR 0.90 (0.87-1.13) 03/14/18 15:00 APTT 82.6 Sec. (24.2-36.6) H* 03/14/18 15:00 D-Dimer < 135 ng/mlDDU (0-234) 03/14/18 02:58 Heparin Anti-Xa Level 0.27 U.I./ml (0.3-0.7) L 03/15/18 07:23 Sodium 138 mmol/L (137-145) 03/15/18 04:04 Potassium 3.8 mmol/L (3.6-5.0) 03/15/18 04:04 Chloride 98.9 mmol/L (98-107) 03/15/18 04:04 Carbon Dioxide 22 mmol/L (22-30) 03/15/18 04:04 Anion Gap 21 mmol/L 03/15/18 04:04 BUN 12 mg/dL (9-20) 03/15/18 04:04 Creatinine 1.0 mg/dL (0.8-1.5) 03/15/18 04:04 Estimated GFR > 60 ml/min 03/15/18 04:04 BUN/Creatinine Ratio 12 % 03/15/18 04:04 Glucose 89 mg/dL (75-100) 03/15/18 04:04 Calcium 8.6 mg/dL (8.4-10.2) 03/15/18 04:04 Total Bilirubin 0.70 mg/dL (0.1-1.2) 03/15/18 04:04 AST 24 units/L (5-40) 03/15/18 04:04 ALT 17 units/L (7-56) 03/15/18 04:04 Alkaline Phosphatase 109 units/L (35-129) 03/15/18 04:04 Total Creatine Kinase 304 units/L (55-170) H 03/14/18 14:57 CK-MB (CK-2) 9.0 ng/mL (0.0-4.0) H 03/14/18 14:57 CK-MB (CK-2) Rel Index 2.9 (0-4) 03/14/18 14:57 Troponin T 0.204 ng/mL (0.00-0.029) H* D 03/15/18 04:04 Total Protein 6.6 g/dL (6.3-8.2) 03/15/18 04:04 Albumin 3.7 g/dL (3.9-5) L 03/15/18 04:04 Albumin/Globulin Ratio 1.3 % 03/15/18 04:04 Triglycerides 77 mg/dL (2-149) 03/14/18 04:57 Cholesterol 197 mg/dL (50-199) 03/14/18 04:57 LDL Cholesterol Direct 126 mg/dL (50-130) 03/14/18 04:57 HDL Cholesterol 61 mg/dL (40-59) H 03/14/18 04:57 Cholesterol/HDL Ratio 3.22 % 03/14/18 04:57 Digoxin 0.3 ng/mL (0.9-2.0) L 03/14/18 02:58
[2018-03-15] MEDS: DELTASONE PO SCH ×2 (14:15→22:08)
[2018-03-15] MEDS: SODIUM CHLORIDE FLUSH SYRINGE 10 ML IV SCH ×2 (17:01→22:08)
[2018-03-15 18:20] LABS: Hematocrit 41.4 % (35.5-45.6); Hemoglobin 13.9 gm/dl (11.8-15.2); Mean Corpuscular HGB Conc 34 % (32-34); Mean Corpuscular Hemoglobin 33 pg (28-32); Mean Corpuscular Volume 98 fl (84-94); Platelet Count 190 K/mm3 (140-440); Red Blood Count 4.21 M/mm3 (3.65-5.03); Red Cell Distribution Width 14.2 % (13.2-15.2)
[2018-03-15 18:27] LABS: BUN/Creatinine Ratio 15; Blood Urea Nitrogen 15 mg/dL (9-20); Calcium 8.6 mg/dL (8.4-10.2); Hemolysis Index 2
[2018-03-15 18:32] LABS: INR 0.88 (0.87-1.13)
[2018-03-15 19:18] LABS: Basophils % (Manual) 0 % (0.0-1.8); Eosinophils % (Manual) 0 % (0.0-4.3); Total Cells Counted 100
[2018-03-15 19:19] LABS: Anisocytosis 1+; Platelet Estimate Consistent w Auto
[2018-03-15] MEDS: RESTORIL PO SCH (23:58)
[2018-03-16] MEDS ORDERED: NACL 0.9% 500 ML 500 ML ONE (02:23)
[2018-03-16] MEDS: MORPHINE IV PRN ×5 (02:31→22:48)
[2018-03-16] MEDS ORDERED: NACL 0.9% 500 ML 500 ML IV SCH (03:00)
[2018-03-16 04:17] LABS: Hemoglobin 13.7 gm/dl (11.8-15.2)
[2018-03-16 04:21] LABS: INR 0.9 (0.87-1.13)
[2018-03-16 04:22] LABS: Hematocrit 38.6 % (35.5-45.6); Mean Corpuscular HGB Conc 36 % (32-34); Mean Corpuscular Hemoglobin 35 pg (28-32); Mean Corpuscular Volume 98 fl (84-94); Partial Thromboplastin Time 32.8 Sec. (24.2-36.6); Platelet Count 197 K/mm3 (140-440); Red Blood Count 3.95 M/mm3 (3.65-5.03); Red Cell Distribution Width 14.1 % (13.2-15.2)
[2018-03-16 04:23] LABS: Heparin anti-factor XA 0.1 U.I./ml (0.3-0.7)
[2018-03-16 04:49] LABS: BUN/Creatinine Ratio 15; Blood Urea Nitrogen 17 mg/dL (9-20); Calcium 8.9 mg/dL (8.4-10.2); Hemolysis Index 1
[2018-03-16] MEDS ORDERED: BENADRYL PO NR (06:00)
[2018-03-16] MEDS: DELTASONE PO SCH (08:57)
[2018-03-16] MEDS: PLAVIX PO SCH ×2 (08:57→16:35)
[2018-03-16] MEDS: BABY ASPIRIN PO SCH ×2 (08:57→16:34)
--- NOTE | 2018-03-16 08:57 | Progress Note ---
Assessment and Plan Assessment: Non-ST elevation myocardial infarction type II Unstable angina CAD s/p CABG Ischemic cardiomypoathy Acute diastolic dysfunction Hypertension Obesity Hyperlipidemia Abdominal pain Plan: S/p LHC this AM which revealed patent grafts. D/c nitro gtt. Optimize anti-hypertensive regimen. Pt c/o persistent abdominal pain and nausea. Consider GI consultation per primary. Currently stable cardiac status. Pt may transfer out of ICU to telemetry from cardiology standpoint. Possible d/c home as early this afternoon from cardiac standpoint if BPs are optimized. The patient has been seen in conjunction with Dr. Grace Chambers who agrees with the assessment and plan of care. Subjective Date of service: 03/16/18 Principal diagnosis: nstemi Interval history: pt resting comfortably in bed, no current cardiac complaints, c/o abdominal pain. for [facility] today. Objective Last Vital Signs Temp 97.1 F L 03/16/18 06:25 Pulse 63 03/16/18 06:01 Resp 15 03/16/18 06:01 BP 110/52 03/16/18 06:01 Pulse Ox 98 03/16/18 07:50 - Physical Examination General: No Apparent Distress HEENT: Positive: PERRL, Mucus Membranes Moist Neck: Positive: neck supple, trachea midline Cardiac: Positive: Reg Rate and Rhythm, S1/S2 Lungs: Positive: clear to auscultation Neuro: Positive: Grossly Intact Abdomen: Positive: Soft, Active Bowel Sounds. Negative: Tender, Distended Skin: Positive: Clear Incision: Cardiac Cath Site Musculoskeletal: No Pain, Normal Range of Motion Extremities: Present: normal. Absent: edema - Labs and Meds Coagulation 03/15/18 03/16/18 Range/Units 17:55 03:48 PT 12.4 12.6 (12.2-14.9) Sec. INR 0.88 0.90 (0.87-1.13) APTT 32.8 (24.2-36.6) Sec. CBC 03/15/18 03/16/18 Range/Units 17:43 03:48 WBC 7.6 8.7 (4.5-11.0) K/mm3 RBC 4.21 3.95 (3.65-5.03) M/mm3 Hgb 13.9 13.7 (11.8-15.2) gm/dl Hct 41.4 38.6 (35.5-45.6) % Plt Count 190 197 (140-440) K/mm3 Comprehensive Metabolic Panel 03/15/18 03/16/18 Range/Units 17:55 03:48 Sodium 136 L 137 (137-145) mmol/L Potassium 4.0 4.2 (3.6-5.0) mmol/L Chloride 96.1 L 98.0 (98-107) mmol/L Carbon Dioxide 25 25 (22-30) mmol/L BUN 15 17 (9-20) mg/dL Creatinine 1.0 1.1 (0.8-1.5) mg/dL Glucose 114 H 149 H (75-100) mg/dL Calcium 8.6 8.9 (8.4-10.2) mg/dL - Imaging and Cardiology EKG: image reviewed Echo: report reviewed (Of note, pt recently underwent LHC with PCI for NSTEMI at [facility] on 05/12/2017 which showed severe 3-vessel coronary artery disease with PCI SVG to OM. Drug-eluting resolution 2.5 x 30 mm Pt was also recently discharged from [facility] on 06/20/2017 following treatment for HF. ), other (2017 ef 30-35% with septal hypokinesis and inferior wall hypokinesis) Cardiac cath: report reviewed (04/2017 left main 30% LAD mid 100% patent JARRELL to LAD and circumflex patent OM1 95% in-stent stenosis PCI of SVG to OM1 and a drug -eluting wrestler 2.5 x 30 RC 100% with patent SVG to PDA normal LV function) - Telemetry EKG Rhythm: Sinus Rhythm
[2018-03-16] MEDS ORDERED: HEPARIN/NS 5000 UNIT/500ML(CATH LAB) 1,000 ML IR ONE (09:16)
[2018-03-16] MEDS ORDERED: HEPARIN 10,000 UNITS/10 ML ONE (09:17)
[2018-03-16] MEDS ORDERED: XYLOCAINE 2% INFILTRATI ONE (09:17)
[2018-03-16] MEDS ORDERED: CALAN ONE (09:17)
[2018-03-16] MEDS ORDERED: SUBLIMAZE ONE (09:18)
[2018-03-16] MEDS ORDERED: VERSED ONE (09:18)
[2018-03-16] MEDS ORDERED: NITROGLYCERIN SYRINGE 0 ML ONE (09:48)
[2018-03-16] MEDS: SUBLIMAZE ONE ×2 (10:01→10:08)
[2018-03-16] MEDS ORDERED: APRESOLINE ONE (10:16)
[2018-03-16] MEDS ORDERED: APRESOLINE IV PRN (11:20)
--- NOTE | 2018-03-16 11:40 | Cardiac Catherization Report ---
CARDIAC CATHETERIZATION REFERRING PHYSICIAN: Dr. Fady Flores and Dr. House. PRIMARY DICE SPOTTER: Dr. Herzog at [facility]. INDICATION FOR PROCEDURE: The patient is a very pleasant 62-year-old gentleman with a history of ischemic cardiomyopathy, multivessel coronary disease, recalcitrant angina, who presents with unstable angina, mildly elevated cardiac enzymes, referred here for left heart catheterization. Risks, benefits, and potential alternatives explained at length prior to obtaining informed consent. The patient has a known dye allergy. He has been premedicated appropriately. Given history of bypass surgery, we used a groin approach. PROCEDURE IN DETAIL: The patient was brought to the catheterization lab in a postabsorptive state and prepped and draped in sterile fashion. An 8 mL of 2% lidocaine was used to anesthetize the right groin. A standard 5-Ch[place] sheath was used to cannulate the right common femoral artery via modified Seldinger technique. All exchanges performed to exchange a J-tipped guidewire. JL4 catheter was used to engage the left main. No dampening or ventricularization. Cineangiography performed in multiple projections. JR4 catheter used to cross the aortic valve under fluoroscopic guidance. Left ventriculography performed in 30 GAYTAN and 30 ELIOT projections via hand injections, catheter flushed. Manual pullback performed with continuous pressure monitoring. Catheter used to engage the right coronary. No dampening or ventricularization. Cineangiography performed in multiple projections. Next, catheter used to engage both SVGs selectively. Angiography performed in multiple projections. Next, catheter used to engage the left subclavian and advanced carefully over wire. Selective JARRELL angiography performed in multiple projections. Next, catheter carefully removed from the left subclavian over wire. Next, sheath was removed. Manual pressure was used to achieve hemostasis. Moderate sedation was directly supervised by me with administration of versed/fentanyl from 10:08 to 10:48am. No complication are noted. No evidence of an allergic reaction. DATA: Aortic pressure initially is 200 systolic over 70, LV pressure 200, LVEP of 20-25 mmHg. I gave 10 of IV hydralazine and his blood pressure improved nicely to around 150 systolic. The patient remained in normal sinus rhythm throughout the procedure. Left ventriculography reveals severe global left ventricular hypokinesis, [id number] LV dysfunction, estimated ejection fraction of 35-40%. No evidence of aortic stenosis. CORONARY ANATOMY: This is a right dominant system. Right coronary is occluded proximally. SVG to RCA is also occluded. Left main is without significant disease. It bifurcates left anterior descending and left circumflex. Left circumflex is moderate sized vessel. Stent in the proximal circumflex is widely patent. There appears to be an OM trunk, which is occluded. LAD is occluded in the mid segment. There is a diagonal, which is widely patent. Stent from the LAD to diagonal is patent. JARRELL to LAD is patent, diffuse small vessel disease distally. SVG to OM is widely patent. SVG to RCA is chronically occluded as well. CONCLUSIONS: 1. Severe [place] coronary artery disease. A. 100% chronic total occlusion of mid LAD. B. 100% chronic total occlusion of OM1. C. Chronic total occlusion of proximal right coronary. 2. Patent JARRELL to LAD. 3. Patent SVG to OM. 4. Chronically occluded SVG to RCA. 5. Extensive left to right collaterals. 6. [id number] global left ventricular hypokinesis, estimated ejection fraction of 35-40%. 7. Mildly elevated LVP. 8. Systemic arterial hypertension. 9. No evidence of aortic stenosis. At this point, recommend continued risk factor modification. I spoke with Dr. Herzog via telephone, his primary web design instructor. He will follow up with him in the office once discharged and right groin is stable. He is clinically and hemodynamically stable at this point, chest pain free, blood pressure improved. Standard right groin care. Results of the procedure explained to the patient and family. All questions and concerns were addressed. Apparently, he has had an extensive cardiac history including offer for LVAD and advanced cardiac therapies for recalcitrant angina. Follow up with Dr. Herzog in the next 1-2 weeks. JOB# [id number] ERICK/PORSCHE UMAÑA
--- NOTE | 2018-03-16 11:45 | Progress Note ---
Assessment and Plan Assessment and plan: Non-ST elevation myocardial infarction type II. Cardiac cath 03/16/18 revealed normal coronaries. Coronary artery disease/Unstable angina. Cath normal Acute diastolic heart failure/ischemic cardiomyopathy. EF is now 35% with wall motion abnormality. Continue with beta hector, losartan and diuresis. Hypertension. As above. Continue antihypertensive medications. Obesity. Patient will be counseled on diet and exercise prior to discharge. Hyperlipidemia. Continue antilipid agents. Acute hypoxemic respiratory failure. Etiology secondary to diastolic heart failure. Continue O2 for supportive care. BiPAP as clinically indicated. Abd pain. GI consultation Disposition. Transfer to floor History Interval history: No new issues overnight. Hospitalist Physical - Constitutional Vitals: Temp Pulse Resp BP Pulse Ox 97.7 F 102 H 16 210/119 97 03/16/18 07:00 03/16/18 11:04 03/16/18 11:04 03/16/18 11:04 03/16/18 09:01 General appearance: Present: no acute distress, well-nourished - EENT Eyes: Present: PERRL, EOM intact ENT: hearing intact, clear oral mucosa, dentition normal - Neck Neck: Present: supple, normal ROM - Respiratory Respiratory effort: normal Respiratory: bilateral: CTA - Cardiovascular Rhythm: regular Heart Sounds: Present: S1 & S2. Absent: gallop, rub - Extremities Extremities: no ischemia, No edema, Full ROM - Abdominal General gastrointestinal: soft, non-tender, non-distended, normal bowel sounds - Integumentary Integumentary: Present: clear, warm, dry - Neurologic Neurologic: CNII-XII intact, moves all extremities Results - Labs CBC & Chem 7: 03/16/18 03:48 03/16/18 03:48 Labs: Laboratory Last Values WBC 8.7 K/mm3 (4.5-11.0) 03/16/18 03:48 RBC 3.95 M/mm3 (3.65-5.03) 03/16/18 03:48 Hgb 13.7 gm/dl (11.8-15.2) 03/16/18 03:48 Hct 38.6 % (35.5-45.6) 03/16/18 03:48 MCV 98 fl (84-94) H 03/16/18 03:48 MCH 35 pg (28-32) H 03/16/18 03:48 MCHC 36 % (32-34) H 03/16/18 03:48 RDW 14.1 % (13.2-15.2) 03/16/18 03:48 Plt Count 197 K/mm3 (140-440) 03/16/18 03:48 Lymph % (Auto) 23.7 % (13.4-35.0) 03/15/18 04:04 [place] % (Auto) 7.0 % (0.0-7.3) 03/15/18 04:04 Eos % (Auto) 3.2 % (0.0-4.3) 03/15/18 04:04 Baso % (Auto) 0.6 % (0.0-1.8) 03/15/18 04:04 Lymph # 1.6 K/mm3 (1.2-5.4) 03/15/18 04:04 Potter # 0.5 K/mm3 (0.0-0.8) 03/15/18 04:04 Eos # 0.2 K/mm3 (0.0-0.4) 03/15/18 04:04 Baso # 0.0 K/mm3 (0.0-0.1) 03/15/18 04:04 Add Manual Diff Complete 03/15/18 17:43 Total Counted 100 03/15/18 17:43 Seg Neutrophils % Belt Cutter 03/15/18 17:43 Seg Neuts % (Manual) 94.0 % (40.0-70.0) H 03/15/18 17:43 Band Neutrophils % 0 % 03/15/18 17:43 Lymphocytes % (Manual) 5.0 % (13.4-35.0) L 03/15/18 17:43 Reactive Lymphs % (Man) 0 % 03/15/18 17:43 Monocytes % (Manual) 1.0 % (0.0-7.3) 03/15/18 17:43 Eosinophils % (Manual) 0 % (0.0-4.3) 03/15/18 17:43 Basophils % (Manual) 0 % (0.0-1.8) 03/15/18 17:43 Metamyelocytes % 0 % 03/15/18 17:43 Myelocytes % 0 % 03/15/18 17:43 Promyelocytes % 0 % 03/15/18 17:43 Blast Cells % 0 % 03/15/18 17:43 Nucleated RBC % Not Reportable 03/15/18 17:43 Seg Neutrophils # 4.3 K/mm3 (1.8-7.7) 03/15/18 04:04 Seg Neutrophils # Man 7.1 K/mm3 (1.8-7.7) 03/15/18 17:43 Band Neutrophils # 0.0 K/mm3 03/15/18 17:43 Lymphocytes # (Manual) 0.4 K/mm3 (1.2-5.4) L 03/15/18 17:43 Abs React Lymphs (Man) 0.0 K/mm3 03/15/18 17:43 Monocytes # (Manual) 0.1 K/mm3 (0.0-0.8) 03/15/18 17:43 Eosinophils # (Manual) 0.0 K/mm3 (0.0-0.4) 03/15/18 17:43 Basophils # (Manual) 0.0 K/mm3 (0.0-0.1) 03/15/18 17:43 Metamyelocytes # 0.0 K/mm3 03/15/18 17:43 Myelocytes # 0.0 K/mm3 03/15/18 17:43 Promyelocytes # 0.0 K/mm3 03/15/18 17:43 Blast Cells # 0.0 K/mm3 03/15/18 17:43 WBC Morphology Not Reportable 03/15/18 17:43 Hypersegmented Neuts Not Reportable 03/15/18 17:43 Hyposegmented Neuts Not Reportable 03/15/18 17:43 Hypogranular Neuts Not Reportable 03/15/18 17:43 Smudge Cells Not Reportable 03/15/18 17:43 Toxic Granulation Not Reportable 03/15/18 17:43 Toxic Vacuolation Not Reportable 03/15/18 17:43 Dohle Bodies Not Reportable 03/15/18 17:43 Pelger-Huet Anomaly Not Reportable 03/15/18 17:43 Elan Rods Not Reportable 03/15/18 17:43 Platelet Estimate Consistent w auto 03/15/18 17:43 Clumped Platelets Not Reportable 03/15/18 17:43 Plt Clumps, EDTA Not Reportable 03/15/18 17:43 Large Platelets Not Reportable 03/15/18 17:43 Giant Platelets Not Reportable 03/15/18 17:43 Platelet Satelliting Not Reportable 03/15/18 17:43 Plt Morphology Comment Not Reportable 03/15/18 17:43 RBC Morphology Not Reportable 03/15/18 17:43 Dimorphic RBCs Not Reportable 03/15/18 17:43 Polychromasia Not Reportable 03/15/18 17:43 Hypochromasia Not Reportable 03/15/18 17:43 Poikilocytosis Not Reportable 03/15/18 17:43 Anisocytosis 1+ 03/15/18 17:43 Microcytosis Not Reportable 03/15/18 17:43 Macrocytosis Not Reportable 03/15/18 17:43 Spherocytes Not Reportable 03/15/18 17:43 Pappenheimer Bodies Not Reportable 03/15/18 17:43 Sickle Cells Not Reportable 03/15/18 17:43 Target Cells Not Reportable 03/15/18 17:43 Tear Drop Cells Not Reportable 03/15/18 17:43 Ovalocytes Not Reportable 03/15/18 17:43 Helmet Cells Not Reportable 03/15/18 17:43 Leonard-Boyds Bodies Not Reportable 03/15/18 17:43 [place] Rings Not Reportable 03/15/18 17:43 [place] Cells Not Reportable 03/15/18 17:43 Bite Cells Not Reportable 03/15/18 17:43 Crenated Cell Not Reportable 03/15/18 17:43 Elliptocytes Not Reportable 03/15/18 17:43 Acanthocytes (Spur) Not Reportable 03/15/18 17:43 Rouleaux Not Reportable 03/15/18 17:43 Hemoglobin C Crystals Not Reportable 03/15/18 17:43 Schistocytes Not Reportable 03/15/18 17:43 Malaria parasites Not Reportable 03/15/18 17:43 [place] Bodies Not Reportable 03/15/18 17:43 Hem Pathologist Commnt No 03/15/18 17:43 PT 12.6 Sec. (12.2-14.9) 03/16/18 03:48 INR 0.90 (0.87-1.13) 03/16/18 03:48 APTT 32.8 Sec. (24.2-36.6) 03/16/18 03:48 D-Dimer < 135 ng/mlDDU (0-234) 03/14/18 02:58 Heparin Anti-Xa Level 0.10 U.I./ml (0.3-0.7) L 03/16/18 03:48 Sodium 137 mmol/L (137-145) 03/16/18 03:48 Potassium 4.2 mmol/L (3.6-5.0) 03/16/18 03:48 Chloride 98.0 mmol/L (98-107) 03/16/18 03:48 Carbon Dioxide 25 mmol/L (22-30) 03/16/18 03:48 Anion Gap 18 mmol/L 03/16/18 03:48 BUN 17 mg/dL (9-20) 03/16/18 03:48 Creatinine 1.1 mg/dL (0.8-1.5) 03/16/18 03:48 Estimated GFR > 60 ml/min 03/16/18 03:48 BUN/Creatinine Ratio 15 % 03/16/18 03:48 Glucose 149 mg/dL (75-100) H 03/16/18 03:48 POC Glucose 180 (70-105) H 03/16/18 00:01 Calcium 8.9 mg/dL (8.4-10.2) 03/16/18 03:48 Total Bilirubin 0.70 mg/dL (0.1-1.2) 03/15/18 04:04 AST 24 units/L (5-40) 03/15/18 04:04 ALT 17 units/L (7-56) 03/15/18 04:04 Alkaline Phosphatase 109 units/L (35-129) 03/15/18 04:04 Total Creatine Kinase 304 units/L (55-170) H 03/14/18 14:57 CK-MB (CK-2) 9.0 ng/mL (0.0-4.0) H 03/14/18 14:57 CK-MB (CK-2) Rel Index 2.9 (0-4) 03/14/18 14:57 Troponin T 0.204 ng/mL (0.00-0.029) H* D 03/15/18 04:04 Total Protein 6.6 g/dL (6.3-8.2) 03/15/18 04:04 Albumin 3.7 g/dL (3.9-5) L 03/15/18 04:04 Albumin/Globulin Ratio 1.3 % 03/15/18 04:04 Triglycerides 77 mg/dL (2-149) 03/14/18 04:57 Cholesterol 197 mg/dL (50-199) 03/14/18 04:57 LDL Cholesterol Direct 126 mg/dL (50-130) 03/14/18 04:57 HDL Cholesterol 61 mg/dL (40-59) H 03/14/18 04:57 Cholesterol/HDL Ratio 3.22 % 03/14/18 04:57 Digoxin 0.3 ng/mL (0.9-2.0) L 03/14/18 02:58 Blood Type A NEGATIVE 03/16/18 03:48 Antibody Screen Negative 03/16/18 03:48
--- NOTE | 2018-03-16 12:11 | Progress Note ---
Assessment and Plan Acute Chest Pain NSTEMI Acute hypoxemic respiratory failure CAD HFrEF (30% EF) HTN Obesity Hyperlipidemia - supplemental oxygen as needed to keep sats > 90% - continue and complete ACS w/up per cardiology - continue GI prophylaxis - GI consult placed for ? Atypical chest pain - prn IV metoprolol or hydralazine for SBP >/= 170mm Hg - begin accuchecks with SSI for BG >/= 180 mg% - begin DVT prophylaxis now off heparin drip - continue other care per attending / other consultants - tentative transfer to telemetry today ..... re-evaluate in am & prn ...35' Subjective Date of service: 03/16/18 Principal diagnosis: Acute Chest Pain; NSTEMI; H/O CAD Interval history: Patient is seen today for: Acute Chest Pain; NSTEMI; H/O CAD Seen and examined at bedside; 24 hour events reviewed; nursing and respiratory care staff consulted; s/p LHCath and reported clean coronaries; however complains of 8/10 chest pain; No N/V/F/C; No new issues otherwise Objective Vital Signs - 12hr 03/16/18 03/16/18 03/16/18 01:01 02:01 03:01 Temperature Pulse Rate 69 72 66 Respiratory 20 19 16 Rate Blood Pressure 141/64 103/52 103/55 O2 Sat by Pulse 95 95 98 Oximetry 03/16/18 03/16/18 03/16/18 04:01 05:01 06:00 Temperature Pulse Rate 67 64 62 Respiratory 16 17 Rate Blood Pressure 98/48 112/58 O2 Sat by Pulse 97 97 Oximetry 03/16/18 03/16/18 03/16/18 06:01 06:25 07:00 Temperature 97.1 F L 97.7 F Pulse Rate 63 Respiratory 15 Rate Blood Pressure 110/52 O2 Sat by Pulse 99 Oximetry 03/16/18 03/16/18 03/16/18 07:01 07:50 08:01 Temperature Pulse Rate 68 63 Respiratory 11 L 10 L Rate Blood Pressure 128/63 155/74 O2 Sat by Pulse 98 98 100 Oximetry 03/16/18 03/16/18 09:01 11:04 Temperature Pulse Rate 62 102 H Respiratory 14 16 Rate Blood Pressure 141/67 210/119 O2 Sat by Pulse 97 Oximetry Constitutional: no acute distress CBC and BMP: 03/16/18 03:48 03/16/18 03:48 ABG, PT/INR, D-dimer: PT/INR, D-dimer PT 12.6 Sec. (12.2-14.9) 03/16/18 03:48 INR 0.90 (0.87-1.13) 03/16/18 03:48 D-Dimer < 135 ng/mlDDU (0-234) 03/14/18 02:58 Abnormal lab findings: Abnormal Labs 03/14/18 03/14/18 03/14/18 02:28 02:28 02:58 MCV 98 H MCH 34 H MCHC 35 H Seg Neuts % (Manual) Lymphocytes % (Manual) Lymphocytes # (Manual) PT 11.3 L INR 0.79 L APTT 22.7 L Heparin Anti-Xa Level Sodium 136 L Chloride Glucose 134 H POC Glucose Alkaline Phosphatase Total Creatine Kinase CK-MB (CK-2) Troponin T Albumin HDL Cholesterol Digoxin 03/14/18 03/14/18 03/14/18 02:58 02:58 04:57 MCV MCH MCHC Seg Neuts % (Manual) Lymphocytes % (Manual) Lymphocytes # (Manual) PT INR APTT Heparin Anti-Xa Level Sodium Chloride Glucose 129 H POC Glucose Alkaline Phosphatase 132 H Total Creatine Kinase CK-MB (CK-2) Troponin T 0.077 H D Albumin HDL Cholesterol 61 H Digoxin 0.3 L 03/14/18 03/14/18 03/14/18 14:57 14:58 15:00 MCV MCH MCHC Seg Neuts % (Manual) Lymphocytes % (Manual) Lymphocytes # (Manual) PT INR APTT 82.6 H* Heparin Anti-Xa Level Sodium Chloride Glucose POC Glucose Alkaline Phosphatase Total Creatine Kinase 304 H CK-MB (CK-2) 9.0 H Troponin T 0.319 H* D 0.304 H* Albumin HDL Cholesterol Digoxin 03/14/18 03/15/18 03/15/18 17:40 04:04 04:04 MCV 99 H MCH 35 H MCHC 35 H Seg Neuts % (Manual) Lymphocytes % (Manual) Lymphocytes # (Manual) PT INR APTT Heparin Anti-Xa Level 0.27 L Sodium Chloride Glucose POC Glucose Alkaline Phosphatase Total Creatine Kinase CK-MB (CK-2) Troponin T 0.204 H* D Albumin 3.7 L HDL Cholesterol Digoxin 03/15/18 03/15/18 03/15/18 07:23 17:43 17:55 MCV 98 H MCH 33 H MCHC Seg Neuts % (Manual) 94.0 H Lymphocytes % (Manual) 5.0 L Lymphocytes # (Manual) 0.4 L PT INR APTT Heparin Anti-Xa Level 0.27 L Sodium 136 L Chloride 96.1 L Glucose 114 H POC Glucose Alkaline Phosphatase Total Creatine Kinase CK-MB (CK-2) Troponin T Albumin HDL Cholesterol Digoxin 03/15/18 03/16/18 03/16/18 20:13 00:01 03:48 MCV 98 H MCH 35 H MCHC 36 H Seg Neuts % (Manual) Lymphocytes % (Manual) Lymphocytes # (Manual) PT INR APTT Heparin Anti-Xa Level Sodium Chloride Glucose POC Glucose 132 H 180 H Alkaline Phosphatase Total Creatine Kinase CK-MB (CK-2) Troponin T Albumin HDL Cholesterol Digoxin 03/16/18 03/16/18 03:48 03:48 MCV MCH MCHC Seg Neuts % (Manual) Lymphocytes % (Manual) Lymphocytes # (Manual) PT INR APTT Heparin Anti-Xa Level 0.10 L Sodium Chloride Glucose 149 H POC Glucose Alkaline Phosphatase Total Creatine Kinase CK-MB (CK-2) Troponin T Albumin HDL Cholesterol Digoxin
[2018-03-16] MEDS: DEMADEX PO SCH (12:16)
[2018-03-16] MEDS: RANEXA ER PO SCH ×2 (12:17→21:16)
[2018-03-16] MEDS: NORVASC PO SCH (12:17)
[2018-03-16] MEDS: COREG PO SCH ×2 (12:17→21:17)
[2018-03-16] MEDS: COZAAR PO SCH (12:18)
[2018-03-16] MEDS: PEPCID PO SCH (12:18)
[2018-03-16] MEDS: SODIUM CHLORIDE FLUSH SYRINGE 10 ML IV SCH ×2 (12:19→21:17)
[2018-03-16] MEDS ORDERED: TORADOL IV PRN (13:38)
[2018-03-16] MEDS ORDERED: MILK OF MAGNESIA PO ONE (14:00)
[2018-03-16] MEDS ORDERED: LOPRESSOR IV PRN (14:51)
--- NOTE | 2018-03-16 17:02 | Gastroenterology Consultation ---
History of Present Illness - Reason for Consult Consult date: 03/16/18 N/Abdominal Pain Requesting physician: MANNIE ROMERO - History of Present Illness The patient is a 62 yo male admitted with chest pain and a known hx of CAD, on . He underwent a LHC, and his vessels/stents were noted to be patent (did have borderline enzymes on admit). He also was noted to have poorly-controlled BP, and was managed while in the ICU, on a nipride gtt. He has been converted to PO meds, and transferred to the floor, where is currently tolerating dinner without any abdominal pain, N/V, or chest pain. He does take PRN pepcid at home , but denies any recent use of this. He has no melena or hematemesis/ dysphagia. He has never had an upper endoscopy. He does have a hx of bowel surgery (ileostomy 2nd "blood clot") but this was reversed in the past. He has had no pain from the prior GI surgery for several years. Past History Past Medical History: CAD, hypertension, hyperlipidemia Past Surgical History: CABG, Other (angioplasty and T mr) Social history: no significant social history. denies: smoking, alcohol abuse, IV drug use Family history: CAD, hypertension Medications and Allergies Allergies Allergy/AdvReac Type Severity Reaction Status Date / Time Iodinated Contrast- Oral and Allergy Itching Verified 06/25/17 18:21 IV Dye [Iodinated Contrast Media - IV Dye] Home Medications Medication Instructions Recorded Confirmed Last Taken Type Aspirin EC [Aspirin Enteric Coated 325 mg PO QDAY #30 tablet 09/17/14 03/14/18 12/02/15 Rx TAB] Clopidogrel [Plavix] 75 mg PO QDAY #30 tablet 09/17/14 03/14/18 12/02/15 Rx Nitroglycerin [Nitrostat] 0.4 mg SL .Q5MIN PRN #25 tab 09/17/14 03/14/18 Rx Carvedilol [Coreg] 25 mg PO DAILY 09/19/16 03/14/18 Unknown History ISOSORBIDE MONOnitrate [Imdur ER] 60 mg PO DAILY 09/19/16 03/14/18 Unknown History Ranolazine ER [Ranexa ER] 1,000 mg PO BID 09/19/16 03/14/18 Unknown History hydrALAZINE [Apresoline TAB] 25 mg PO TID 09/19/16 03/14/18 Unknown History Torsemide [Demadex] 20 mg PO DAILY 06/25/17 03/14/18 Unknown History amLODIPine [Norvasc] 5 mg PO DAILY 06/25/17 03/14/18 Unknown History Temazepam 30 mg PO QHS #30 capsule 06/27/17 03/14/18 Unknown Rx Active Meds: Active Medications Acetaminophen (Tylenol) 650 mg PO Q4H PRN PRN Reason: Pain MILD(1-3)/Fever >100.5/GIORDANO Amlodipine Besylate (Norvasc) 5 mg PO DAILY [facility] [place] Last Admin: 03/16/18 12:17 Dose: 5 mg Aspirin (Baby Aspirin) 81 mg PO QDAY [facility] Last Admin: 03/16/18 16:34 Dose: Not Given Atorvastatin Calcium (Lipitor) 80 mg PO QHS [facility] Last Admin: 03/15/18 21:52 Dose: 80 mg Carvedilol (Coreg) 25 mg PO BID [facility] Last Admin: 03/16/18 12:17 Dose: 25 mg Clopidogrel Bisulfate (Plavix) 75 mg PO QDAY [facility] Last Admin: 03/16/18 16:35 Dose: Not Given Diphenhydramine HCl (Benadryl) 50 mg PO PREOP NR Stop: 03/16/18 23:59 Last Admin: 03/16/18 08:58 Dose: 50 mg Enoxaparin Sodium (Lovenox) 40 mg SUB-Q QDAY@2200 [place] Hydralazine HCl (Apresoline) 5 mg IV Q4H PRN PRN Reason: Hypertension Last Admin: 03/16/18 12:19 Dose: 5 mg Sodium Chloride (Nacl 0.9% 500 Ml) 500 mls @ 50 mls/hr IV DIRECT [facility] Last Admin: 03/16/18 03:02 Dose: 50 mls/hr Insulin Human Lispro (Humalog) 0 unit SUB-Q [facility]; Protocol Ketorolac Tromethamine (Toradol) 30 mg IV Q8HR PRN PRN Reason: Pain , Severe (7-10) Last Admin: 03/16/18 13:48 Dose: 30 mg Losartan Potassium (Cozaar) 25 mg PO QDAY [facility] [place] Last Admin: 03/16/18 12:18 Dose: 25 mg Metoprolol Tartrate (Lopressor) 5 mg IV Q6HR PRN PRN Reason: SBP >160 Morphine Sulfate (Morphine) 4 mg IV Q5MIN PRN PRN Reason: Chest Pain Last Admin: 03/15/18 13:29 Dose: 4 mg Morphine Sulfate (Morphine) 2 mg IV Q4H PRN PRN Reason: Pain, Moderate (4-6) Last Admin: 03/16/18 11:29 Dose: 2 mg Ondansetron HCl (Zofran) 4 mg IV Q8H PRN PRN Reason: Nausea And Vomiting Last Admin: 03/16/18 06:45 Dose: 4 mg Pantoprazole Sodium (Protonix) 40 mg PO QDAY [facility] Ranolazine (Ranexa Er) 1,000 mg PO BID [facility] Last Admin: 03/16/18 12:17 Dose: 1,000 mg Sodium Chloride (Sodium Chloride Flush Syringe 10 Ml) 10 ml IV BID [facility] Last Admin: 03/16/18 12:19 Dose: 10 ml Sodium Chloride (Sodium Chloride Flush Syringe 10 Ml) 10 ml IV PRN PRN PRN Reason: LINE FLUSH Temazepam (Restoril) 30 mg PO QHS [facility] Last Admin: 03/15/18 23:58 Dose: 30 mg Torsemide (Demadex) 20 mg PO DAILY [facility] Last Admin: 03/16/18 12:16 Dose: 20 mg --I HAVE REVIEWED/RECONCILED MEDICATIONS-- Review of Systems - Review of Systems All systems: negative (as noted in the HPI) Exam - Constitutional Vital Signs: Temp Pulse Resp BP Pulse Ox 98.0 F 75 20 153/72 98 03/16/18 15:36 03/16/18 15:01 03/16/18 15:36 03/16/18 15:36 03/16/18 15:01 General appearance: no acute distress - EENT Eyes: PERRL ENT: hearing intact, clear oral mucosa, poor dentition - Neck Neck: supple, normal ROM - Respiratory Respiratory effort: normal Respiratory: bilateral: CTA - Cardiovascular Rhythm: regular Heart Sounds: Present: S1 & S2 Extremities: no ischemia, No edema - Gastrointestinal General gastrointestinal: Present: soft, non-tender, non-distended - Integumentary Integumentary: Present: clear, warm, dry - Neurologic Neurological: alert and oriented x3 - Labs CBC & Chem 7: 03/16/18 03:48 03/16/18 03:48 Lab Results: Laboratory Results - last 24 hr 03/15/18 03/15/18 03/15/18 17:43 17:55 17:55 WBC 7.6 RBC 4.21 Hgb 13.9 Hct 41.4 MCV 98 H MCH 33 H MCHC 34 RDW 14.2 Plt Count 190 Add Manual Diff Complete Total Counted 100 Seg Neutrophils % [employer] Seg Neuts % (Manual) 94.0 H Band Neutrophils % 0 Lymphocytes % (Manual) 5.0 L Reactive Lymphs % (Man) 0 Monocytes % (Manual) 1.0 Eosinophils % (Manual) 0 Basophils % (Manual) 0 Metamyelocytes % 0 Myelocytes % 0 Promyelocytes % 0 Blast Cells % 0 Nucleated RBC % Not Reportable Seg Neutrophils # Man 7.1 Band Neutrophils # 0.0 Lymphocytes # (Manual) 0.4 L Abs React Lymphs (Man) 0.0 Monocytes # (Manual) 0.1 Eosinophils # (Manual) 0.0 Basophils # (Manual) 0.0 Metamyelocytes # 0.0 Myelocytes # 0.0 Promyelocytes # 0.0 Blast Cells # 0.0 WBC Morphology Not Reportable Hypersegmented Neuts Not Reportable Hyposegmented Neuts Not Reportable Hypogranular Neuts Not Reportable Smudge Cells Not Reportable Toxic Granulation Not Reportable Toxic Vacuolation Not Reportable Dohle Bodies Not Reportable Pelger-Huet Anomaly Not Reportable Elan Rods Not Reportable Platelet Estimate Consistent w auto Clumped Platelets Not Reportable Plt Clumps, EDTA Not Reportable Large Platelets Not Reportable Giant Platelets Not Reportable Platelet Satelliting Not Reportable Plt Morphology Comment Not Reportable RBC Morphology Not Reportable Dimorphic RBCs Not Reportable Polychromasia Not Reportable Hypochromasia Not Reportable Poikilocytosis Not Reportable Anisocytosis 1+ Microcytosis Not Reportable Macrocytosis Not Reportable Spherocytes Not Reportable Pappenheimer Bodies Not Reportable Sickle Cells Not Reportable Target Cells Not Reportable Tear Drop Cells Not Reportable Ovalocytes Not Reportable Helmet Cells Not Reportable [place] Bodies Not Reportable [place] Rings Not Reportable [place] Cells Not Reportable Bite Cells Not Reportable Crenated Cell Not Reportable Elliptocytes Not Reportable Acanthocytes (Spur) Not Reportable Rouleaux Not Reportable Hemoglobin C Crystals Not Reportable Schistocytes Not Reportable Malaria parasites Not Reportable [place] Bodies Not Reportable Hem Pathologist Commnt No PT 12.4 INR 0.88 APTT Heparin Anti-Xa Level POC ABG pH POC ABG pCO2 POC ABG pO2 POC ABG HCO3 POC ABG Total CO2 POC ABG O2 Sat POC ABG Base Excess FiO2 Sodium 136 L Potassium 4.0 Chloride 96.1 L Carbon Dioxide 25 Anion Gap 19 BUN 15 Creatinine 1.0 Estimated GFR > 60 BUN/Creatinine Ratio 15 Glucose 114 H POC Glucose Calcium 8.6 Blood Type Antibody Screen 03/15/18 03/16/18 03/16/18 20:13 00:01 03:48 WBC 8.7 RBC 3.95 Hgb 13.7 Hct 38.6 MCV 98 H MCH 35 H MCHC 36 H RDW 14.1 Plt Count 197 Add Manual Diff Total Counted Seg Neutrophils % Seg Neuts % (Manual) Band Neutrophils % Lymphocytes % (Manual) Reactive Lymphs % (Man) Monocytes % (Manual) Eosinophils % (Manual) Basophils % (Manual) Metamyelocytes % Myelocytes % Promyelocytes % Blast Cells % Nucleated RBC % Seg Neutrophils # Man Band Neutrophils # Lymphocytes # (Manual) Abs React Lymphs (Man) Monocytes # (Manual) Eosinophils # (Manual) Basophils # (Manual) Metamyelocytes # Myelocytes # Promyelocytes # Blast Cells # WBC Morphology Hypersegmented Neuts Hyposegmented Neuts Hypogranular Neuts Smudge Cells Toxic Granulation Toxic Vacuolation Dohle Bodies Pelger-Huet Anomaly Elan Rods Platelet Estimate Clumped Platelets Plt Clumps, EDTA Large Platelets Giant Platelets Platelet Satelliting Plt Morphology Comment RBC Morphology Dimorphic RBCs Polychromasia Hypochromasia Poikilocytosis Anisocytosis Microcytosis Macrocytosis Spherocytes Pappenheimer Bodies Sickle Cells Target Cells Tear Drop Cells Ovalocytes Helmet Cells [place] Bodies [place] Rings [place] Cells Bite Cells Crenated Cell Elliptocytes Acanthocytes (Spur) Rouleaux Hemoglobin C Crystals Schistocytes Malaria parasites [place] Bodies Hem Pathologist Commnt PT INR APTT Heparin Anti-Xa Level POC ABG pH POC ABG pCO2 POC ABG pO2 POC ABG HCO3 POC ABG Total CO2 POC ABG O2 Sat POC ABG Base Excess FiO2 Sodium Potassium Chloride Carbon Dioxide Anion Gap BUN Creatinine Estimated GFR BUN/Creatinine Ratio Glucose POC Glucose 132 H 180 H Calcium Blood Type Antibody Screen 03/16/18 03/16/18 03/16/18 03:48 03:48 03:48 WBC RBC Hgb Hct MCV MCH MCHC RDW Plt Count Add Manual Diff Total Counted Seg Neutrophils % Seg Neuts % (Manual) Band Neutrophils % Lymphocytes % (Manual) Reactive Lymphs % (Man) Monocytes % (Manual) Eosinophils % (Manual) Basophils % (Manual) Metamyelocytes % Myelocytes % Promyelocytes % Blast Cells % Nucleated RBC % Seg Neutrophils # Man Band Neutrophils # Lymphocytes # (Manual) Abs React Lymphs (Man) Monocytes # (Manual) Eosinophils # (Manual) Basophils # (Manual) Metamyelocytes # Myelocytes # Promyelocytes # Blast Cells # WBC Morphology Hypersegmented Neuts Hyposegmented Neuts Hypogranular Neuts Smudge Cells Toxic Granulation Toxic Vacuolation Dohle Bodies Pelger-Huet Anomaly Elan Rods Platelet Estimate Clumped Platelets Plt Clumps, EDTA Large Platelets Giant Platelets Platelet Satelliting Plt Morphology Comment RBC Morphology Dimorphic RBCs Polychromasia Hypochromasia Poikilocytosis Anisocytosis Microcytosis Macrocytosis Spherocytes Pappenheimer Bodies Sickle Cells Target Cells Tear Drop Cells Ovalocytes Helmet Cells [place] Bodies [place] Rings [place] Cells Bite Cells Crenated Cell Elliptocytes Acanthocytes (Spur) Rouleaux Hemoglobin C Crystals Schistocytes Malaria parasites [place] Bodies Hem Pathologist Commnt PT 12.6 INR 0.90 APTT 32.8 Heparin Anti-Xa Level 0.10 L POC ABG pH POC ABG pCO2 POC ABG pO2 POC ABG HCO3 POC ABG Total CO2 POC ABG O2 Sat POC ABG Base Excess FiO2 Sodium 137 Potassium 4.2 Chloride 98.0 Carbon Dioxide 25 Anion Gap 18 BUN 17 Creatinine 1.1 Estimated GFR > 60 BUN/Creatinine Ratio 15 Glucose 149 H POC Glucose Calcium 8.9 Blood Type A NEGATIVE Antibody Screen Negative 03/16/18 03/16/18 12:31 13:01 WBC RBC Hgb Hct MCV MCH MCHC RDW Plt Count Add Manual Diff Total Counted Seg Neutrophils % Seg Neuts % (Manual) Band Neutrophils % Lymphocytes % (Manual) Reactive Lymphs % (Man) Monocytes % (Manual) Eosinophils % (Manual) Basophils % (Manual) Metamyelocytes % Myelocytes % Promyelocytes % Blast Cells % Nucleated RBC % Seg Neutrophils # Man Band Neutrophils # Lymphocytes # (Manual) Abs React Lymphs (Man) Monocytes # (Manual) Eosinophils # (Manual) Basophils # (Manual) Metamyelocytes # Myelocytes # Promyelocytes # Blast Cells # WBC Morphology Hypersegmented Neuts Hyposegmented Neuts Hypogranular Neuts Smudge Cells Toxic Granulation Toxic Vacuolation Dohle Bodies Pelger-Huet Anomaly Elan Rods Platelet Estimate Clumped Platelets Plt Clumps, EDTA Large Platelets Giant Platelets Platelet Satelliting Plt Morphology Comment RBC Morphology Dimorphic RBCs Polychromasia Hypochromasia Poikilocytosis Anisocytosis Microcytosis Macrocytosis Spherocytes Pappenheimer Bodies Sickle Cells Target Cells Tear Drop Cells Ovalocytes Helmet Cells [place] Bodies [place] Rings [place] Cells Bite Cells Crenated Cell Elliptocytes Acanthocytes (Spur) Rouleaux Hemoglobin C Crystals Schistocytes Malaria parasites [place] Bodies Hem Pathologist Commnt PT INR APTT Heparin Anti-Xa Level POC ABG pH 7.417 POC ABG pCO2 37.6 POC ABG pO2 56 L POC ABG HCO3 24.2 POC ABG Total CO2 25 POC ABG O2 Sat 89 POC ABG Base Excess 0 FiO2 28 Sodium Potassium Chloride Carbon Dioxide Anion Gap BUN Creatinine Estimated GFR BUN/Creatinine Ratio Glucose POC Glucose 148 H Calcium Blood Type Antibody Screen Assessment and Plan - Patient Problems (1) Epigastric pain Current Visit: Yes Status: Acute Plan to address problem: - Long hx of non-ulcer dyspepsia, but usually controlled with PRN pepcid. - Patient states symptoms are resolved with PO protonix, and will continue this at discharge. - Since no melena, anemia, dysphagia, or hematemesis, and severe CAD, will defer EGD until patient is clinically improved/stable cardiac-lewis. - OK to d/c home on PO protonix per our service; will sign off/please call with questions.
[2018-03-16] MEDS: HumaLOG SUB-Q SCH ×2 (18:42→22:48)
[2018-03-16] MEDS: RESTORIL PO SCH (21:17)
[2018-03-16] MEDS ORDERED: LOVENOX SUB-Q SCH (22:00)
[2018-03-17] MEDS: MORPHINE IV PRN ×2 (04:06→10:58)
[2018-03-17 06:17] LABS: Basophils % (Auto) 0.1 % (0.0-1.8); Hematocrit 42.5 % (35.5-45.6); Hemoglobin 14.2 gm/dl (11.8-15.2); Lymphocytes # (Auto) 0.7 K/mm3 (1.2-5.4); Mean Corpuscular HGB Conc 34 % (32-34); Mean Corpuscular Hemoglobin 33 pg (28-32); Mean Corpuscular Volume 99 fl (84-94); Monocytes # (Auto) 0.8 K/mm3 (0.0-0.8); Monocytes % (Auto) 5.8 % (0.0-7.3); Platelet Count 192 K/mm3 (140-440); Red Blood Count 4.28 M/mm3 (3.65-5.03); Red Cell Distribution Width 13.8 % (13.2-15.2)
[2018-03-17 06:40] LABS: BUN/Creatinine Ratio 18; Blood Urea Nitrogen 22 mg/dL (9-20); Calcium 8.9 mg/dL (8.4-10.2); Hemolysis Index 40
[2018-03-17] MEDS ORDERED: PROTONIX PO SCH (10:00)
--- NOTE | 2018-03-17 10:08 | Discharge Summary ---
Providers - Providers Date of Admission: 03/14/18 05:00 Date of discharge: 03/17/18 Attending physician: MANNIE ROMERO 03/14/18 05:00 Consult to Physician [CONS] Routine Comment: a/s notified 0750 Consulting Provider: BRE BURCH Physician Instructions: Reason For Exam: ua 03/14/18 10:00 Consult to Physician [CONS] Routine Comment: LEFT MESSAGE ON OFFICE NUMBER [id number] Consulting Provider: HEATHER RANDLE Physician Instructions: Reason For Exam: nstemi and iv nitro 03/16/18 11:14 Consult to Cardiac Rehabilitation [CONS] Routine Reason For Exam: Cardiac Rehab Evaluation 03/16/18 11:45 Consult to Physician [CONS] Routine Comment: Consulting Provider: BEATRIZ HENRY Physician Instructions: Reason For Exam: abd pain Primary care physician: ISSA CHANEL Hospitalization Reason for admission: cp, epigastric Condition: Stable Hospital course: The patient is a 62 yo male admitted with chest pain and a known hx of CAD, on . He saw cardiology in consultation and underwent a LHC, and his vessels/ stents were noted to be patent (did have borderline enzymes on admit). He also was noted to have poorly-controlled BP, and was managed while in the ICU, on a nipride gtt. He has been converted to PO meds, and was transferred to the floor , where is currently tolerating food without any abdominal pain, N/V, or chest pain. He does take PRN pepcid at home, but denies any recent use of this. He has no melena or hematemesis/dysphagia. He has never had an upper endoscopy. He does have a hx of bowel surgery (ileostomy 2nd "blood clot") but this was reversed in the past. He has had no pain from the prior GI surgery for several years. The pt was seen by GI who felt Since no melena, anemia, dysphagia, or hematemesis, and severe CAD, will defer EGD until patient is clinically improved /stable cardiac-lewis and OK to d/c home on PO protonix. Dedicated d/c 32 min Disposition: DC-01 TO HOME OR SELFCARE Time spent for discharge: 32 Core Measure Documentation - Palliative Care Palliative Care/ Comfort Measures: Not Applicable - Core Measures Any of the following diagnoses?: none Exam - Constitutional Vitals: Temp Pulse Resp BP Pulse Ox 97.4 F L 61 20 125/60 95 03/17/18 07:40 03/17/18 07:40 03/17/18 08:36 03/17/18 07:40 03/17/18 07:40 General appearance: Present: no acute distress, well-nourished - EENT Eyes: Present: PERRL ENT: hearing intact, clear oral mucosa - Neck Neck: Present: supple, normal ROM - Respiratory Respiratory effort: normal Respiratory: bilateral: CTA - Cardiovascular Heart Sounds: Present: S1 & S2. Absent: rub, click - Extremities Extremities: pulses symmetrical, No edema Peripheral Pulses: within normal limits - Abdominal General gastrointestinal: Present: soft, non-tender, non-distended, normal bowel sounds Male genitourinary: Present: normal - Integumentary Integumentary: Present: clear, warm, dry - Musculoskeletal Musculoskeletal: gait normal, strength equal bilaterally - Psychiatric Psychiatric: appropriate mood/affect, intact judgment & insight - Neurologic Neurologic: CNII-XII intact, moves all extremities Plan Activity: no restrictions Weight Bearing Status: Full Weight Bearing Diet: low fat, low cholesterol, low salt Follow up with: ISSA CHANEL MD [Primary Care Provider] - 3-5 Days BEATRIZ HENRY MD [Staff Physician] - 7 Days MERY ROSA MD [Staff Physician] - 7 Days Prescriptions: amLODIPine [Norvasc] 5 mg PO DAILY #30 tablet Aspirin [Aspirin BABY CHEW TAB] 81 mg PO QDAY #30 tab.chew Aspirin EC [Aspirin Enteric Coated TAB] 325 mg PO QDAY #30 tablet Carvedilol [Coreg] 25 mg PO DAILY #30 tablet Clopidogrel [Plavix] 75 mg PO QDAY #30 tablet hydrALAZINE [Apresoline TAB] 25 mg PO TID #30 tablet ISOSORBIDE MONOnitrate [Imdur ER] 60 mg PO DAILY #30 tablet Losartan [Cozaar] 25 mg PO QDAY #30 tablet Nitroglycerin [Nitrostat] 0.4 mg SL .Q5MIN PRN #25 tab PRN Reason: Chest Pain Pantoprazole [Protonix TAB] 40 mg PO QDAY #30 tablet Ranolazine ER [Ranexa ER] 1,000 mg PO BID #60 tablet Temazepam 30 mg PO QHS #30 capsule Torsemide [Demadex] 20 mg PO DAILY #30 tablet
[2018-03-17] MEDS: DEMADEX PO SCH (10:23)
[2018-03-17] MEDS: PLAVIX PO SCH (10:24)
[2018-03-17] MEDS: COZAAR PO SCH (10:24)
[2018-03-17] MEDS: HumaLOG SUB-Q SCH ×2 (10:25→14:16)
[2018-03-17] MEDS: COREG PO SCH (10:27)
[2018-03-17] MEDS: BABY ASPIRIN PO SCH (10:28)
[2018-03-17] MEDS: RANEXA ER PO SCH (10:29)
[2018-03-17] MEDS: NORVASC PO SCH (10:29)
[2018-03-17] MEDS: SODIUM CHLORIDE FLUSH SYRINGE 10 ML IV SCH (10:30)
--- NOTE | 2018-03-17 11:03 | Progress Note ---
Assessment and Plan Assessment: Non-ST elevation myocardial infarction type II Chest pain - currently resolved CAD s/p CABG Ischemic cardiomypoathy Acute diastolic dysfunction Hypertension Obesity Hyperlipidemia Abdominal pain / N&V - resolved per pt report Plan: Currently stable cardiac status. Pt may discharge home from cardiology standpoint. Follow up in our [place] office with Dr. House on 03/26/2018 @ 3:30PM. The patient has been seen in conjunction with Dr. SIDDHARTHA Chambers who agrees with the assessment and plan of care. Subjective Date of service: 03/17/18 Principal diagnosis: Acute Chest Pain; NSTEMI; H/O CAD Interval history: pt resting comfortably in bed, no current complaints. Objective Last Vital Signs Temp 97.4 F L 03/17/18 07:40 Pulse 61 03/17/18 10:24 Resp 20 03/17/18 10:58 BP 125/60 03/17/18 10:24 Pulse Ox 95 03/17/18 07:40 - Physical Examination General: No Apparent Distress HEENT: Positive: PERRL, Mucus Membranes Moist Neck: Positive: neck supple, trachea midline Cardiac: Positive: Reg Rate and Rhythm, S1/S2 Lungs: Positive: clear to auscultation Neuro: Positive: Grossly Intact Abdomen: Positive: Soft, Active Bowel Sounds. Negative: Tender, Distended Skin: Positive: Clear Incision: Cardiac Cath Site Musculoskeletal: No Pain, Normal Range of Motion Extremities: Present: normal. Absent: edema - Labs and Meds CBC 03/17/18 Range/Units 04:57 WBC 14.1 H (4.5-11.0) K/mm3 RBC 4.28 (3.65-5.03) M/mm3 Hgb 14.2 (11.8-15.2) gm/dl Hct 42.5 (35.5-45.6) % Plt Count 192 (140-440) K/mm3 Lymph # 0.7 L (1.2-5.4) K/mm3 [place] # 0.8 (0.0-0.8) K/mm3 Eos # 0.0 (0.0-0.4) K/mm3 Baso # 0.0 (0.0-0.1) K/mm3 Comprehensive Metabolic Panel 03/17/18 Range/Units 04:57 Sodium 139 (137-145) mmol/L Potassium 4.4 (3.6-5.0) mmol/L Chloride 98.7 (98-107) mmol/L Carbon Dioxide 26 (22-30) mmol/L BUN 22 H (9-20) mg/dL Creatinine 1.2 (0.8-1.5) mg/dL Glucose 120 H (75-100) mg/dL Calcium 8.9 (8.4-10.2) mg/dL - Imaging and Cardiology EKG: image reviewed Echo: report reviewed (Of note, pt recently underwent LHC with PCI for NSTEMI at [facility] on 05/12/2017 which showed severe 3-vessel coronary artery disease with PCI SVG to OM. Drug-eluting resolution 2.5 x 30 mm Pt was also recently discharged from [facility] on 06/20/2017 following treatment for HF. ), other (2017 ef 30-35% with septal hypokinesis and inferior wall hypokinesis) Cardiac cath: report reviewed (04/2017 left main 30% LAD mid 100% patent JARRELL to LAD and circumflex patent OM1 95% in-stent stenosis PCI of SVG to OM1 and a drug -eluting wrestler 2.5 x 30 RC 100% with patent SVG to PDA normal LV function) - Telemetry EKG Rhythm: Sinus Rhythm
[2018-03-17 12:31] VITALS: BP 146/60
== END 2018-03-17 15:15 | disposition home or self-care (01) | DRG 280 ==
LOC: ED 02:00 → 4A 05:00 → CC1 11:31 → 4A 03-16 15:48
PROVIDERS: ADMIT Internal Medicine; ATTEND Hospitalist
PROC: 4A023N7 Measurement of Cardiac Sampling and Pressure, Left Heart, Percutaneous Approach (ICD-10-PCS; principal; 2018-03-16)
PROC: B2111ZZ Fluoroscopy of Multiple Coronary Arteries using Low Osmolar Contrast (ICD-10-PCS; 2018-03-16)
PROC: B2151ZZ Fluoroscopy of Left Heart using Low Osmolar Contrast (ICD-10-PCS; 2018-03-16)
PROC: B2131ZZ Fluoroscopy of Multiple Coronary Artery Bypass Grafts using Low Osmolar Contrast (ICD-10-PCS; 2018-03-16)
PROC: B2181ZZ Fluoroscopy of Left Internal Mammary Bypass Graft using Low Osmolar Contrast (ICD-10-PCS; 2018-03-16)
PROC: 4A033R1 Measurement of Arterial Saturation, Peripheral, Percutaneous Approach (ICD-10-PCS; 2018-03-17)
DX: I25.110 Atherosclerotic heart disease of native coronary artery with unstable angina pectoris (principal); I21.A1 Myocardial infarction type 2; J96.01 Acute respiratory failure with hypoxia; I50.31 Acute diastolic (congestive) heart failure; I11.0 Hypertensive heart disease with heart failure; E78.00 Pure hypercholesterolemia, unspecified; E66.9 Obesity, unspecified; I25.5 Ischemic cardiomyopathy; E78.5 Hyperlipidemia, unspecified; Z95.1 Presence of aortocoronary bypass graft; Z82.49 Family history of ischemic heart disease and other diseases of the circulatory system; Z91.041 Radiographic dye allergy status; Z79.82 Long term (current) use of aspirin; Z79.899 Other long term (current) drug therapy; Z95.5 Presence of coronary angioplasty implant and graft; Z86.73 Personal history of transient ischemic attack (TIA), and cerebral infarction without residual deficits; I25.2 Old myocardial infarction; Z68.35 Body mass index [BMI] 35.0-35.9, adult
CPT/HCPCS: 36415; 36600; 71045; 80048; 80053; 80061; 80162; 82550; 82553; 82803; 82962; 84484; 85007; 85014; 85018; 85025; 85027; 85049; 85379; 85520; 85610; 85730; 86850; 86900; 86901; 93005; 93010; 93306; 93459; 94760; 96374; 96375; A9270-GY; C1769; J0360; J1644; J1650; J1815; J1885; J2250; J2270; J2405; J3010; J7030; J7040; J7512; Q9967

== ENCOUNTER 2018-06-06 16:58 | Emergency (ER) | payer MEDICARE ==
[2018-06-06 17:13] VITALS: BP 170/92
[2018-06-06] MEDS ORDERED: ASPIRIN PO ONE (17:13)
[2018-06-06 17:43] LABS: Basophils # (Auto) 0.1 K/mm3 (0.0-0.1); Basophils % (Auto) 1.1 % (0.0-1.8); Eosinophils # (Auto) 0.1 K/mm3 (0.0-0.4); Eosinophils % (Auto) 1.8 % (0.0-4.3); Hematocrit 42.5 % (35.5-45.6); Hemoglobin 14.4 gm/dl (11.8-15.2); Lymphocytes # (Auto) 1.5 K/mm3 (1.2-5.4); Lymphocytes % (Auto) 27.5 % (13.4-35.0); Mean Corpuscular HGB Conc 34 % (32-34); Mean Corpuscular Hemoglobin 33 pg (28-32); Mean Corpuscular Volume 97 fl (84-94); Monocytes # (Auto) 0.5 K/mm3 (0.0-0.8); Monocytes % (Auto) 8.6 % (0.0-7.3); Platelet Count 175 K/mm3 (140-440); Red Blood Count 4.36 M/mm3 (3.65-5.03); Red Cell Distribution Width 13.3 % (13.2-15.2)
[2018-06-06 18:14] LABS: BUN/Creatinine Ratio 15; Blood Urea Nitrogen 15 mg/dL (9-20); Calcium 9.7 mg/dL (8.4-10.2); Hemolysis Index 1
== END 2018-06-06 17:22 | disposition left against medical advice (07) ==
LOC: ED 16:58
DX: R07.9 Chest pain, unspecified (principal); R61 Generalized hyperhidrosis; I25.2 Old myocardial infarction; Z95.1 Presence of aortocoronary bypass graft; E78.00 Pure hypercholesterolemia, unspecified; Z86.73 Personal history of transient ischemic attack (TIA), and cerebral infarction without residual deficits; Z91.041 Radiographic dye allergy status; Z53.21 Procedure and treatment not carried out due to patient leaving prior to being seen by health care provider
CPT/HCPCS: 36415; 80048; 84484; 85025; 93005; 93010

== ENCOUNTER 2019-05-28 05:19 | Emergency (ER) | payer MEDICARE ==
[2019-05-28 06:11] VITALS: BP 192/100
--- NOTE | 2019-05-28 06:11 | XRay Report ---
CHEST 1 VIEW INDICATION / CLINICAL INFORMATION: Chest Pain. COMPARISON: None available. FINDINGS: SUPPORT DEVICES: None. HEART / MEDIASTINUM: Cardiac silhouette is mildly enlarged. Sternotomy. LUNGS / PLEURA: There is mild interstitial prominence bilaterally. It is unclear if this is acute or chronic interstitial disease. No focal area of pneumonia or pleural effusion noted. No pneumothorax. ADDITIONAL FINDINGS: No significant additional findings. IMPRESSION: 1. Mild interstitial disease bilaterally. I suspect the majority of this interstitial disease is registered nurse renal eugenio. However I cannot exclude some minimal superimposed interstitial pulmonary edema. Signer Name: Roselia Taylor MD Signed: 05/28/2019 6:06 AM Workstation Name: [id number]
[2019-05-28 06:17] LABS: Basophils % (Auto) 0.6 % (0.0-1.8); Eosinophils # (Auto) 0.2 K/mm3 (0.0-0.4); Eosinophils % (Auto) 2.4 % (0.0-4.3); Hematocrit 45.6 % (35.5-45.6); Hemoglobin 15.3 gm/dl (11.8-15.2); Lymphocytes % (Auto) 16.1 % (13.4-35.0); Mean Corpuscular HGB Conc 34 % (32-34); Mean Corpuscular Volume 101 fl (84-94); Monocytes # (Auto) 0.3 K/mm3 (0.0-0.8); Monocytes % (Auto) 5.2 % (0.0-7.3); Platelet Count 174 K/mm3 (140-440); Red Blood Count 4.51 M/mm3 (3.65-5.03); Red Cell Distribution Width 13.7 % (13.2-15.2)
--- NOTE | 2019-05-28 06:56 | Emergency Department Report ---
ED Chest Pain HPI - General Chief Complaint: Chest Pain Stated Complaint: CHEST PAIN Time Seen by Provider: 05/28/19 06:23 Source: patient, RN notes reviewed, old records reviewed Mode of arrival: Ambulatory Limitations: No Limitations - History of Present Illness Initial Comments: This is a pleasant 64-year-old gentleman. I evaluated this patient in the past. His past medical history includes hypertension, heart disease, cardiac bypass, left ventricular systolic dysfunction, ejection fraction 30-40%, has chronic recurrent intractable angina, or prior cardiology documentation, has one out of 3 grafts chronically occluded by catheterization, recently advised to maximize medical therapy to reduce LDL to target level. Patient presents to the ER today with a complaint of resolved substantial chest pain. Patient took 5 nitroglycerin prior to arrival. Initially, this did not resolve his pain, and now, his pain is resolved. The patient has no complaints at this time. He endorses compliance with his medications. He states he had a cardiac catheterization at the [facility] 3 or 4 months ago, which "showed that everything is okay." He denies cocaine use, and he denies DVT, pulmonary embolism risk factors. He endorses compliance with his medications otherwise. He indicates that he does not need any medication refills. He denies DVT, pulmonary embolus risk factors. MD Complaint: chest pain -: Sudden Onset: during rest Pain Location: substernal Pain Radiation: none Severity: moderate Severity scale (0 -10): 10 Quality: aching Consistency: now resolved Improves With: nitroglycerin Worsens With: nothing Aspirin use within the Past 7 Days: (1) Yes - Related Data On Oral Contraceptives: No Home Medications Medication Instructions Recorded Confirmed Last Taken AtorvaSTATin [Lipitor] 20 mg PO QHS 05/28/19 05/28/19 Unknown Bisoprolol Fumarate 2.5 mg PO DAILY 05/28/19 05/28/19 Unknown ISOSORBIDE MONOnitrate [Imdur ER] 60 mg PO BID 05/28/19 05/28/19 Unknown Lisinopril [Zestril] 5 mg PO QDAY 05/28/19 05/28/19 Unknown Potassium Chloride [K-Dur] 10 meq PO QDAY 05/28/19 05/28/19 Unknown Ranitidine HCl [Zantac] 300 mg PO BID 05/28/19 05/28/19 Unknown Torsemide [Demadex] 40 mg PO BID 05/28/19 05/28/19 Unknown risperiDONE [RisperDAL] 0.5 mg PO BID 05/28/19 05/28/19 Unknown Previous Rx's Medication Instructions Recorded Last Taken Type Aspirin [Aspirin BABY CHEW TAB] 81 mg PO QDAY #30 tab.chew 10/04/18 Unknown Rx Carvedilol [Coreg] 25 mg PO DAILY #30 tablet 10/04/18 Unknown Rx Clopidogrel [Plavix] 75 mg PO QDAY #30 tablet 10/04/18 Unknown Rx Losartan [Cozaar] 25 mg PO QDAY #30 tablet 10/04/18 Unknown Rx Nitroglycerin [Nitrostat] 0.4 mg SL .Q5MIN PRN #25 tab 10/04/18 Unknown Rx Ranolazine ER [Ranexa ER] 1,000 mg PO BID #60 tablet 10/04/18 Unknown Rx Temazepam 30 mg PO QHS #30 capsule 10/04/18 Unknown Rx amLODIPine [Norvasc] 10 mg PO QDAY #30 tablet 10/04/18 Unknown Rx hydrALAZINE [Apresoline TAB] 25 mg PO TID #90 tablet 10/04/18 Unknown Rx Allergies Allergy/AdvReac Type Severity Reaction Status Date / Time Iodinated Contrast- Oral and Allergy Itching Verified 05/28/19 07:37 IV Dye [Iodinated Contrast Media - IV Dye] Heart Score - HEART Score History: Moderately suspicious EKG: Non-specific Age: 45-65 Risk factors: > 3 risk factors or hx of atherosclerotic disease Troponin: < normal limit HEART Score: 5 - Critical Actions Critical Actions: 4-6 pts:12-16.6% risk of adverse cardiac event. Should be admitted ED Review of Systems ROS: Stated complaint: CHEST PAIN Other details as noted in HPI Constitutional: denies: fever Eyes: denies: eye discharge ENT: denies: epistaxis Respiratory: denies: wheezing Cardiovascular: chest pain Gastrointestinal: denies: vomiting Musculoskeletal: denies: myalgia Skin: denies: lesions Neurological: denies: weakness Psychiatric: denies: anxiety ED Past Medical Hx - Past Medical History Previous Medical History?: Yes Hx Hypertension: Yes Hx CVA: Yes Hx Heart Attack/AMI: Yes Hx Congestive Heart Failure: Yes Hx Diabetes: No Hx Deep Vein Thrombosis: Yes Hx Pulmonary Embolism: No Hx Liver Disease: No Hx Sickle Cell Disease: No Hx Arthritis: Yes Hx Seizures: No Hx Kidney Stones: No Hx Asthma: No Hx COPD: No Hx Tuberculosis: No Hx Dementia: No Hx HIV: No Additional medical history: high cholesterol. 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 - Social History Smoking Status: Former Smoker Substance Use Type: None - Medications Home Medications: Home Medications Medication Instructions Recorded Confirmed Last Taken Type Aspirin [Aspirin BABY CHEW TAB] 81 mg PO QDAY #30 tab.chew 10/04/18 05/28/19 Unknown Rx Carvedilol [Coreg] 25 mg PO DAILY #30 tablet 10/04/18 05/28/19 Unknown Rx Clopidogrel [Plavix] 75 mg PO QDAY #30 tablet 10/04/18 05/28/19 Unknown Rx Losartan [Cozaar] 25 mg PO QDAY #30 tablet 10/04/18 05/28/19 Unknown Rx Nitroglycerin [Nitrostat] 0.4 mg SL .Q5MIN PRN #25 tab 10/04/18 05/28/19 Unknown Rx Ranolazine ER [Ranexa ER] 1,000 mg PO BID #60 tablet 10/04/18 05/28/19 Unknown Rx Temazepam 30 mg PO QHS #30 capsule 10/04/18 05/28/19 Unknown Rx amLODIPine [Norvasc] 10 mg PO QDAY #30 tablet 10/04/18 05/28/19 Unknown Rx hydrALAZINE [Apresoline TAB] 25 mg PO TID #90 tablet 10/04/18 05/28/19 Unknown Rx AtorvaSTATin [Lipitor] 20 mg PO QHS 05/28/19 05/28/19 Unknown History Bisoprolol Fumarate 2.5 mg PO DAILY 05/28/19 05/28/19 Unknown History ISOSORBIDE MONOnitrate [Imdur ER] 60 mg PO BID 05/28/19 05/28/19 Unknown History Lisinopril [Zestril] 5 mg PO QDAY 05/28/19 05/28/19 Unknown History Potassium Chloride [K-Dur] 10 meq PO QDAY 05/28/19 05/28/19 Unknown History Ranitidine HCl [Zantac] 300 mg PO BID 05/28/19 05/28/19 Unknown History Torsemide [Demadex] 40 mg PO BID 05/28/19 05/28/19 Unknown History risperiDONE [RisperDAL] 0.5 mg PO BID 05/28/19 05/28/19 Unknown History ED Physical Exam - General Limitations: No Limitations General appearance: alert, in no apparent distress, obese - Head Head exam: Present: atraumatic, normocephalic - Eye Eye exam: Present: normal appearance, EOMI. Absent: nystagmus - ENT ENT exam: Present: normal exam, normal orophraynx, mucous membranes moist, normal external ear exam - Neck Neck exam: Present: normal inspection, full ROM. Absent: tenderness, meningism us - Respiratory Respiratory exam: Present: normal lung sounds bilaterally. Absent: respiratory distress - Cardiovascular Cardiovascular Exam: Present: regular rate, normal rhythm, normal heart sounds. Absent: bradycardia, tachycardia, irregular rhythm, systolic murmur, diastolic murmur, rubs, gallop - GI/Abdominal GI/Abdominal exam: Present: soft. Absent: distended, tenderness, guarding, rebound, rigid, pulsatile mass - Rectal Rectal exam: Present: deferred - Extremities Exam Extremities exam: Present: normal inspection, full ROM, pedal edema, other (2+ pulses noted in the bilateral upper extremities. There is no long bony tenderness. Upper extremity compartments soft.) - Back Exam Back exam: Present: normal inspection, full ROM. Absent: tenderness, CVA tenderness (R), CVA tenderness (L), paraspinal tenderness, vertebral tenderness - Neurological Exam Neurological exam: Present: alert, oriented X3, other (Extraocular movements intact. Tongue midline. No facial droop. Facial sensation intact to light to uch in the V1, V2, V3 distribution bilaterally. 5 and 5 strength in 4 extremities.. Sensation is intact to light touch in 4 extremities.). Absent: motor sensory deficit - Psychiatric Psychiatric exam: Present: normal affect, normal mood - Skin Skin exam: Present: warm, dry, intact, normal color. Absent: rash ED Course Vital Signs 05/28/19 05/28/19 05:25 06:09 Temperature 97.7 F 98.1 F Pulse Rate 98 H 93 H Respiratory 20 14 Rate Blood Pressure 215/105 192/100 [Left] O2 Sat by Pulse 95 95 Oximetry SHAWN score - Shawn Score Age > 65: (0) No Aspirin use within the Past 7 Days: (1) Yes 3 or more CAD Risk Factors: (1) Yes 2 or more Angina events in past 24 hrs: (1) Yes Known CAD with more than 50% Stenosis: (1) Yes (as per catheterization report 2013, patient had severe disease.) Elevated Cardiac Markers: (1) Yes ST Deviation Greater than 0.5mm: (0) No SHAWN Score: 5 ED Medical Decision Making - Lab Data Result diagrams: 05/28/19 05:35 05/28/19 05:35 Vital Signs 05/28/19 05/28/19 05:25 06:09 Temperature 97.7 F 98.1 F Pulse Rate 98 H 93 H Respiratory 20 14 Rate Blood Pressure 215/105 192/100 [Left] O2 Sat by Pulse 95 95 Oximetry Lab Results 05/28/19 Range/Units 05:35 WBC 6.5 (4.5-11.0) K/mm3 RBC 4.51 (3.65-5.03) M/mm3 Hgb 15.3 H (11.8-15.2) gm/dl Hct 45.6 (35.5-45.6) % MCV 101 H (84-94) fl MCH 34 H (28-32) pg MCHC 34 (32-34) % RDW 13.7 (13.2-15.2) % Plt Count 174 (140-440) K/mm3 Lymph % (Auto) 16.1 (13.4-35.0) % Chambers % (Auto) 5.2 (0.0-7.3) % Eos % (Auto) 2.4 (0.0-4.3) % Baso % (Auto) 0.6 (0.0-1.8) % Lymph # 1.0 L (1.2-5.4) K/mm3 Chambers # 0.3 (0.0-0.8) K/mm3 Eos # 0.2 (0.0-0.4) K/mm3 Baso # 0.0 (0.0-0.1) K/mm3 Seg Neutrophils % 75.7 H (40.0-70.0) % Seg Neutrophils # 4.9 (1.8-7.7) K/mm3 - EKG Data -: EKG Interpreted by Me EKG shows normal: sinus rhythm Rate: normal - EKG Data 05/28/19 06:55 This is a normal sinus rhythm, 98 bpm, normal axis, QTC within normal limits, left ventricular hypertrophy, abnormal EKG, not currently having chest pain, when compared to prior EKG from September 2018, numerous T-wave changes. - Radiology Data Radiology results: pending (patient leaving AMA, declined imaging studies) - Medical Decision Making Differential diagnosis, including not limited to: GERD, gastritis, hiatal hernia, stable angina, unstable angina, acute coronary syndrome Assessment and plan: 64-year-old gentleman, no pulmonary embolism or DVT risk factors, low risk by well's criteria, was documented chronic angina. Patient states he is pain-free at this time. Blood pressure in the 190s. I have strongly recommended admission to the hospital for blood pressure control, and cardiac risk stratification. The patient is declining this, and he is going to sign out AGAINST MEDICAL ADVICE. The patient is currently alert and oriented 3, clinically sober, and free from distracting injury. Risks of leaving, including , disability, paralysis, permanent loss of quality of life discussed with patient, and he verbalizes understanding in his own words. Patient is informed that he may return to the emergency room right away if and w hen he changes his mind at any time. Patient verbalizes understanding to this. Patient states he does not require refills on his medications. This conversation is witnessed by nurse Ashley Stewart Critical care attestation.: If time is entered above; I have spent that time in minutes in the direct care of this critically ill patient, excluding procedure time. ED Disposition Clinical Impression: Chest pain, HTN (hypertension), benign Disposition: DC-07 LEFT AGAINST MED ADVICE Is pt being admited?: No Does the pt Need Aspirin: No Condition: Stable Instructions: Chest Pain (ED), Hypertension (ED) Additional Instructions: As we discussed, you have left the hospital/emergency room AGAINST MEDICAL ADVICE. By leaving, you risked , disability, paralysis, permanent loss of quality of life. The ER is open 24 hours a day, 7 days a week. It never closes. Please return to the emergency room right away if and when you change your mind. If you decide not to return to the emergency room, please follow-up with the listed physician referrals as soon as possible. Referrals: BRE BURCH MD [Staff Physician] - 3-5 Days Forms: AMA Form
[2019-05-28 07:05] LABS: BUN/Creatinine Ratio 12; Blood Urea Nitrogen 13 mg/dL (9-20); Calcium 9.4 mg/dL (8.4-10.2); Hemolysis Index 6
== END 2019-05-28 07:05 | disposition left against medical advice (07) ==
LOC: ED 05:19
DX: R07.89 Other chest pain (principal); I11.0 Hypertensive heart disease with heart failure; I50.9 Heart failure, unspecified; I63.9 Cerebral infarction, unspecified; I25.2 Old myocardial infarction; M19.90 Unspecified osteoarthritis, unspecified site; E78.00 Pure hypercholesterolemia, unspecified; I25.10 Atherosclerotic heart disease of native coronary artery without angina pectoris; Z86.718 Personal history of other venous thrombosis and embolism; Z79.01 Long term (current) use of anticoagulants; Z95.5 Presence of coronary angioplasty implant and graft; Z87.891 Personal history of nicotine dependence; Z79.899 Other long term (current) drug therapy; Z88.6 Allergy status to analgesic agent; Z91.041 Radiographic dye allergy status
CPT/HCPCS: 36415; 71045; 80048; 84484; 85025

== ENCOUNTER 2019-05-28 07:36 | Observation (INO) | payer MEDICARE ==
[2019-05-28] MEDS ORDERED: ASPIRIN PO ONE (07:45)
[2019-05-28] MEDS ORDERED: ZOFRAN IV ONE (08:19)
[2019-05-28] MEDS ORDERED: MORPHINE IV ONE (08:19)
[2019-05-28] MEDS ORDERED: PEPCID IV ONE (08:19)
--- NOTE | 2019-05-28 08:20 | Emergency Department Report ---
ED Chest Pain HPI - General Chief Complaint: Chest Pain Stated Complaint: CHEST PAIN Time Seen by Provider: 05/28/19 08:08 Source: patient Mode of arrival: Ambulatory Limitations: No Limitations - History of Present Illness Initial Comments: This is a pleasant 64-year-old gentleman. I evaluated this patient earlier on this morning. Please see my previous documentation for details of his past medical history. He presents with recurrent nontraumatic substantial chest pressure and pain. Pain is burning and aching and does not radiate anywhere. There is positive nausea. There is no diaphoresis. There is no exertional shortness of breath. No DVT or pulmonary embolus risk factors. No recent cocaine use. No recent use of erectile dysfunction medication. MD Complaint: chest pain -: Sudden Onset: during rest, during exertion Pain Location: substernal Pain Radiation: none Severity: moderate Quality: aching Consistency: constant Improves With: nothing Worsens With: nothing Aspirin use within the Past 7 Days: (1) Yes - Related Data On Oral Contraceptives: No Previous Rx's Medication Instructions Recorded Last Taken Type Aspirin [Aspirin BABY CHEW TAB] 81 mg PO QDAY #30 tab.chew 10/04/18 Unknown Rx AtorvaSTATin [Lipitor] 40 mg PO QHS #30 tablet 10/04/18 Unknown Rx Carvedilol [Coreg] 25 mg PO DAILY #30 tablet 10/04/18 Unknown Rx Clopidogrel [Plavix] 75 mg PO QDAY #30 tablet 10/04/18 Unknown Rx ISOSORBIDE MONOnitrate [Imdur ER] 120 mg PO QDAY #30 tablet 10/04/18 Unknown Rx Losartan [Cozaar] 25 mg PO QDAY #30 tablet 10/04/18 Unknown Rx Nitroglycerin [Nitrostat] 0.4 mg SL .Q5MIN PRN #25 tab 10/04/18 Unknown Rx Pantoprazole [Protonix TAB] 40 mg PO QDAY #30 tablet 10/04/18 Unknown Rx Ranolazine ER [Ranexa ER] 1,000 mg PO BID #60 tablet 10/04/18 Unknown Rx Temazepam 30 mg PO QHS #30 capsule 10/04/18 Unknown Rx Torsemide [Demadex] 20 mg PO DAILY #30 tablet 10/04/18 Unknown Rx amLODIPine [Norvasc] 10 mg PO QDAY #30 tablet 10/04/18 Unknown Rx hydrALAZINE [Apresoline TAB] 25 mg PO TID #90 tablet 10/04/18 Unknown Rx Allergies Allergy/AdvReac Type Severity Reaction Status Date / Time Iodinated Contrast- Oral and Allergy Itching Verified 05/28/19 07:37 IV Dye [Iodinated Contrast Media - IV Dye] Heart Score - HEART Score History: Moderately suspicious EKG: Non-specific Age: 45-65 Risk factors: > 3 risk factors or hx of atherosclerotic disease Troponin: < normal limit HEART Score: 5 - Critical Actions Critical Actions: 4-6 pts:12-16.6% risk of adverse cardiac event. Should be admitted ED Review of Systems ROS: Stated complaint: CHEST PAIN Other details as noted in HPI Constitutional: denies: fever Eyes: denies: eye discharge ENT: denies: epistaxis Respiratory: denies: cough Cardiovascular: chest pain Gastrointestinal: denies: abdominal pain Genitourinary: denies: dysuria Musculoskeletal: denies: back pain Skin: denies: lesions Neurological: weakness Psychiatric: anxiety Hematological/Lymphatic: denies: easy bleeding ED Past Medical Hx - Past Medical History Hx Hypertension: Yes Hx CVA: Yes Hx Heart Attack/AMI: Yes Hx Congestive Heart Failure: Yes Hx Diabetes: No Hx Deep Vein Thrombosis: Yes Hx Pulmonary Embolism: No Hx Liver Disease: No Hx Sickle Cell Disease: No Hx Arthritis: No Hx Seizures: No Hx Kidney Stones: No Hx Asthma: No Hx COPD: No Hx Tuberculosis: No Hx Dementia: No Hx HIV: No Additional medical history: high cholesterol. 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 - Social History Smoking Status: Former Smoker Substance Use Type: Alcohol - Medications Home Medications: Home Medications Medication Instructions Recorded Confirmed Last Taken Type Aspirin [Aspirin BABY CHEW TAB] 81 mg PO QDAY #30 tab.chew 10/04/18 Unknown Rx AtorvaSTATin [Lipitor] 40 mg PO QHS #30 tablet 10/04/18 Unknown Rx Carvedilol [Coreg] 25 mg PO DAILY #30 tablet 10/04/18 Unknown Rx Clopidogrel [Plavix] 75 mg PO QDAY #30 tablet 10/04/18 Unknown Rx ISOSORBIDE MONOnitrate [Imdur ER] 120 mg PO QDAY #30 tablet 10/04/18 Unknown Rx Losartan [Cozaar] 25 mg PO QDAY #30 tablet 10/04/18 Unknown Rx Nitroglycerin [Nitrostat] 0.4 mg SL .Q5MIN PRN #25 tab 10/04/18 Unknown Rx Pantoprazole [Protonix TAB] 40 mg PO QDAY #30 tablet 10/04/18 Unknown Rx Ranolazine ER [Ranexa ER] 1,000 mg PO BID #60 tablet 10/04/18 Unknown Rx Temazepam 30 mg PO QHS #30 capsule 10/04/18 Unknown Rx Torsemide [Demadex] 20 mg PO DAILY #30 tablet 10/04/18 Unknown Rx amLODIPine [Norvasc] 10 mg PO QDAY #30 tablet 10/04/18 Unknown Rx hydrALAZINE [Apresoline TAB] 25 mg PO TID #90 tablet 10/04/18 Unknown Rx ED Physical Exam - General Limitations: No Limitations General appearance: alert, anxious, obese - Head Head exam: Present: atraumatic, normocephalic - Eye Eye exam: Present: normal appearance, EOMI. Absent: nystagmus - ENT ENT exam: Present: normal exam, normal orophraynx, mucous membranes moist, normal external ear exam - Neck Neck exam: Present: normal inspection, full ROM. Absent: tenderness, meningismus - Respiratory Respiratory exam: Present: normal lung sounds bilaterally. Absent: respiratory distress - Cardiovascular Cardiovascular Exam: Present: regular rate, normal rhythm, normal heart sounds. Absent: bradycardia, tachycardia, irregular rhythm, systolic murmur, diastolic murmur, rubs, gallop - GI/Abdominal GI/Abdominal exam: Present: soft. Absent: distended, tenderness, guarding, rebound, rigid, pulsatile mass - Rectal Rectal exam: Present: deferred - Extremities Exam Extremities exam: Present: normal inspection, full ROM, pedal edema, other (2+ pulses noted in the bilateral upper, lower extremities. Compartments soft. No long bony tenderness. The pelvis is stable.). Absent: calf tenderness - Back Exam Back exam: Present: normal inspection, full ROM. Absent: tenderness, CVA tenderness (R), CVA tenderness (L), paraspinal tenderness, vertebral tenderness - Neurological Exam Neurological exam: Present: alert, oriented X3, normal gait, other (Extraocular movements intact. Tongue midline. No facial droop. Facial sensation intact to light touch in the V1, V2, V3 distribution bilaterally. 5 and 5 strength in 4 extremities.. Sensation is intact to light touch in 4 extremities.). Absent: motor sensory deficit - Psychiatric Psychiatric exam: Present: anxious - Skin Skin exam: Present: warm, dry, intact, normal color. Absent: rash ED Course Vital Signs 05/28/19 07:41 Temperature 97.7 F Pulse Rate 89 Respiratory 18 Rate Blood Pressure 173/98 O2 Sat by Pulse 96 Oximetry RAS score - Ras Score Age > 65: (0) No Aspirin use within the Past 7 Days: (1) Yes 3 or more CAD Risk Factors: (1) Yes 2 or more Angina events in past 24 hrs: (1) Yes Known CAD with more than 50% Stenosis: (1) Yes (as per catheterization report 2013, patient had severe disease.) Elevated Cardiac Markers: (1) Yes ST Deviation Greater than 0.5mm: (0) No RAS Score: 5 ED Medical Decision Making - Lab Data Result diagrams: 05/28/19 08:06 Vital Signs 05/28/19 07:41 Temperature 97.7 F Pulse Rate 89 Respiratory 18 Rate Blood Pressure 173/98 O2 Sat by Pulse 96 Oximetry Lab Results 05/28/19 Range/Units 08:06 Sodium 136 L (137-145) mmol/L Potassium 3.9 (3.6-5.0) mmol/L Chloride 101.8 (98-107) mmol/L Carbon Dioxide 20 L (22-30) mmol/L Anion Gap 18 mmol/L BUN 13 (9-20) mg/dL Creatinine 0.9 (0.8-1.5) mg/dL Estimated GFR > 60 ml/min BUN/Creatinine Ratio 14 % Glucose 104 H (75-100) mg/dL Calcium 9.0 (8.4-10.2) mg/dL Troponin T 0.013 (0.00-0.029) ng/mL - EKG Data -: EKG Interpreted by Al EKG shows normal: sinus rhythm Rate: normal - EKG Data When compared to previous EKG there are: no significant change 05/28/19 08:52 EKG shows a sinus rhythm, 89 bpm, normal axis, QTC 452 ms, left ventricular hypertrophy, premature ventricular contractions, prolonged QTC, pseudo- normalized T waves V2, V3, persistent T-wave inversion V4, flattened T waves V5 and V6, this is an abnormal EKG, the EKG today is not consistent with ST elevation myocardial infarction, this EKG appears to be unchanged from previous EKG from earlier on today, but does demonstrate changes when compared to prior EKG from September 2018. - Radiology Data Radiology results: report reviewed, image reviewed t Report Referring Physician: ISSA PARRA Patient Name: TAYLOR WALKER Date of : 1955 Sex: Male Report Date: 2019-05-28 Report Status: Finalized Findings [facility] [address] [place] [address] XRay Report Signed Patient: TAYLOR WALKER MR#: [id number] 8 : 1955 Acct:[id number] Age/Sex: 64 / M ADM Date: 05/28/19 Loc: ED Attending Dr: Ordering Physician: ISSA PARRA MD Date of Service: 05/28/19 Procedure(s): XR chest 1V ap Accession Number(s): [id number] cc: ISSA PARRA MD Fluoro Time In Minutes: CHEST 1 VIEW INDICATION: Chest Pain. Shortness of breath since this morning COMPARISON: 05/28/2019 0547 hours FINDINGS: Support devices: None. Heart: Previous CABG changes. Mild cardiomegaly is stable. . Lungs/Pleura: Pulmonary vessels are borderline and slightly decreased since the previous exam. No infiltrate, pleural effusion or pneumothorax Additional findings: None. IMPRESSION: 1. Mild improvement in pulmonary venous congestion. Stable mild cardiomegaly. Signer Name: Nemesio Black Jr, MD Signed: 05/28/2019 8:27 AM Workstation Name: [id number] Transcribed By: TTR Dictated By: NEMESIO BLACK JR, MD Electronically Authenticated By: NEMESIO BLACK JR, MD Signed Date/Time: 05/28/19 0827 - Medical Decision Making Differential diagnosis, including but not limited to: GERD, gastritis, hiatal hernia, pneumonia, acute coronary syndrome, stable angina, unstable angina Assessment and plan: 64-year-old gentleman, low risk by well's criteria, no endorsed pulmonary embolism or DVT risk factors, equal pulses in the bilateral upper and lower extremities, x-ray of the chest does not demonstrate a large mediastinum, blood pressure not significantly elevated, and equal pulses in the upper, lower extremities. Suspect worsening angina clinically. We will treat the patient's pain, and I have requested old catheter ports from the [facility]. We are awaiting return of his medical records. Consulted cardiology, Dr. Sam Green, who agrees to follow in consultation. He specifically advises aspirin at this time only, no recommendation for Plavix for heparinization. Hospital physician, Dr. Sam Willis, who will admit the patient to the medical service for presumed unstable angina. Critical care attestation.: If time is entered above; I have spent that time in minutes in the direct care of this critically ill patient, excluding procedure time. ED Disposition Clinical Impression: Unstable angina, History of PTCA, Hx of CABG Disposition: [id number] OP ADMIT IP TO THIS HOSP Is pt being admited?: Yes Does the pt Need Aspirin: Yes Condition: Stable
--- NOTE | 2019-05-28 08:32 | XRay Report ---
CHEST 1 VIEW INDICATION: Chest Pain. Shortness of breath since this morning COMPARISON: 05/28/2019 0547 hours FINDINGS: Support devices: None. Heart: Previous CABG changes. Mild cardiomegaly is stable. . Lungs/Pleura: Pulmonary vessels are borderline and slightly decreased since the previous exam. No inf iltrate, pleural effusion or pneumothorax Additional findings: None. IMPRESSION: 1. Mild improvement in pulmonary venous congestion. Stable mild cardiomegaly. Signer Name: Nemesio Black Jr, MD Signed: 05/28/2019 8:27 AM Workstation Name: [id number]
[2019-05-28] MEDS: NITROSTAT SL PRN ×3 (08:45→09:10)
[2019-05-28 08:46] LABS: BUN/Creatinine Ratio 14; Blood Urea Nitrogen 13 mg/dL (9-20); Hemolysis Index 41
[2019-05-28 08:51] LABS: Hematocrit 43.4 % (35.5-45.6); Hemoglobin 14.6 gm/dl (11.8-15.2); Mean Corpuscular HGB Conc 34 % (32-34); Mean Corpuscular Volume 101 fl (84-94); Red Cell Distribution Width 13.6 % (13.2-15.2)
[2019-05-28 09:16] LABS: Platelet Count 156 K/mm3 (140-440)
[2019-05-28] MEDS ORDERED: LASIX IV ONE (10:09)
[2019-05-28] MEDS ORDERED: DILAUDID IV ONE (10:14)
--- NOTE | 2019-05-28 10:22 | History and Physical Report ---
History of Present Illness Date of examination: 05/28/19 Date of admission: 05/28/19 08:20 Chief complaint: Chest pain History of present illness: 64-year-old male with past medical history significant for congestive heart failure, CAD status post CABG, stent, hypertension, stroke presented to the emergency department complaining of chest pain that started earlier this morning. Patient was sleeping and chest pain woke up from his sleep around 3 AM. Midsternal chest pain, cramping, 8-9 out of 10 in intensity, with radiation to the left shoulder, associated with shortness of breath, nausea&vomiting, no alleviating or aggravating factors identified. There is mild bilateral leg swelling. Patient took nitroglycerin without improvement. Patient had persisten t chest pain despite morphine, cardiology was consulted by Dr Peñaloza and cardiology recommend only aspirin. There is EKG change from baseline but no ST elevation. Patient ran out of his torsemide 2 days ago. REVIEW OF SYSTEMS: GENERAL: no weight change, no fatigue, no fever HEAD: no head ache EYES: no blurry vision, no acute visual loss EARS: no hearing loss, no discharge, no earache NOSE: no stuffiness, no sneezing, no discharge MOUTH, THROAT AND NECK: no bleeding gums, no sore throat, no swollen neck CARDIAC: As stated in the HPI. RESPIRATORY: As stated in the HPI. GI: no decreased appetite, no dysphagia, no diarrhea, no constipation, no abdominal pain URINARY: no change in frequency, no urgency, no polyuria, no hematuria, no incontinence MUSCULOSKELETAL: no muscle weakness, no pain, no joint stiffness NEUROLOGIC: no loss of sensation/numbness, no tingling, no tremors, no weakness/paralysis HEMATOLOGIC: no anemia, no easy bruising SKIN: no rashes ENDOCRINE: no heat/cold intolerance, no polyuria, no polydipsia, no thyroid problems, no diabetes PSYCHIATRIC: no anxiety, no depression, no suicidal ideations Past History Past Medical History: CAD, heart failure, hypertension, stroke Past Surgical History: CABG Social history: full code. denies: smoking, alcohol abuse, prescription drug abuse, IV drug use Family history: no significant family history Medications and Allergies Allergies Allergy/AdvReac Type Severity Reaction Status Date / Time Iodinated Contrast- Oral and Allergy Itching Verified 05/28/19 07:37 IV Dye [Iodinated Contrast Media - IV Dye] Home Medications Medication Instructions Recorded Confirmed Last Taken Type Aspirin [Aspirin BABY CHEW TAB] 81 mg PO QDAY #30 tab.chew 10/04/18 Unknown Rx AtorvaSTATin [Lipitor] 40 mg PO QHS #30 tablet 10/04/18 Unknown Rx Carvedilol [Coreg] 25 mg PO DAILY #30 tablet 10/04/18 Unknown Rx Clopidogrel [Plavix] 75 mg PO QDAY #30 tablet 10/04/18 Unknown Rx ISOSORBIDE MONOnitrate [Imdur ER] 120 mg PO QDAY #30 tablet 10/04/18 Unknown Rx Losartan [Cozaar] 25 mg PO QDAY #30 tablet 10/04/18 Unknown Rx Nitroglycerin [Nitrostat] 0.4 mg SL .Q5MIN PRN #25 tab 10/04/18 Unknown Rx Pantoprazole [Protonix TAB] 40 mg PO QDAY #30 tablet 10/04/18 Unknown Rx Ranolazine ER [Ranexa ER] 1,000 mg PO BID #60 tablet 10/04/18 Unknown Rx Temazepam 30 mg PO QHS #30 capsule 10/04/18 Unknown Rx Torsemide [Demadex] 20 mg PO DAILY #30 tablet 10/04/18 Unknown Rx amLODIPine [Norvasc] 10 mg PO QDAY #30 tablet 10/04/18 Unknown Rx hydrALAZINE [Apresoline TAB] 25 mg PO TID #90 tablet 10/04/18 Unknown Rx Active Meds: Active Medications Atorvastatin Calcium (Lipitor) 40 mg PO QHS [facility] Carvedilol (Coreg) 25 mg PO DAILY [facility] Furosemide (Lasix) 40 mg IV ONCE ONE Stop: 05/28/19 10:10 Furosemide (Lasix) 40 mg IV QDAY [facility] Heparin Sodium (Porcine) (Heparin) 5,000 unit SUB-Q Q8HR [facility] Hydralazine HCl (Apresoline) 25 mg PO TID [facility] Isosorbide Mononitrate (Imdur) 120 mg PO QDAY [facility] Losartan Potassium (Cozaar) 25 mg PO QDAY [facility] Miscellaneous Medication (Temazepam [Temazepam]) 30 mg PO QHS [facility] Nitroglycerin (Nitrostat) 0.4 mg SL .Q5MIN PRN PRN Reason: Chest Pain Last Admin: 05/28/19 09:10 Dose: 0.4 mg Documented by: Ranolazine (Ranexa Er) 1,000 mg PO BID [facility] Exam - Physical Exam Narrative exam: Not in cardiopulmonary distress. The patient is obese. Vital signs as documented. Head exam is unremarkable. No scleral icterus . Neck is without jugular venous distension, thyromegaly, or carotid bruits. Lungs are clear to auscultation. Cardiac exam reveals regular rate and Rhythm. First and second heart sounds normal. No murmurs, rubs or gallops. Abdominal exam reveals normal bowel sounds, no masses, no organomegaly and no aortic enlargement. Extremities mild pedal and pretibial edema. PRINCIPAL BIOINFORMATICS SPECIALIST: Alert and oriented 3. No focal weakness. - Constitutional Vitals: Temp Pulse Resp BP Pulse Ox 98.2 F 87 20 183/84 96 05/28/19 07:45 05/28/19 09:15 05/28/19 09:15 05/28/19 09:15 05/28/19 09:15 Results - Labs CBC & Chem 7: 05/28/19 08:06 05/28/19 08:06 Labs: Laboratory Last Values WBC 10.4 K/mm3 (4.5-11.0) 05/28/19 08:06 RBC 4.30 M/mm3 (3.65-5.03) 05/28/19 08:06 Hgb 14.6 gm/dl (11.8-15.2) 05/28/19 08:06 Hct 43.4 % (35.5-45.6) 05/28/19 08:06 MCV 101 fl (84-94) H 05/28/19 08:06 MCH 34 pg (28-32) H 05/28/19 08:06 MCHC 34 % (32-34) 05/28/19 08:06 RDW 13.6 % (13.2-15.2) 05/28/19 08:06 Plt Count 156 K/mm3 (140-440) 05/28/19 08:06 Sodium 136 mmol/L (137-145) L 05/28/19 08:06 Potassium 3.9 mmol/L (3.6-5.0) 05/28/19 08:06 Chloride 101.8 mmol/L (98-107) 05/28/19 08:06 Carbon Dioxide 20 mmol/L (22-30) L 05/28/19 08:06 18 mmol/L 05/28/19 08:06 BUN 13 mg/dL (9-20) 05/28/19 08:06 0.9 mg/dL (0.8-1.5) 05/28/19 08:06 Estimated GFR > 60 ml/min 05/28/19 08:06 14 % 05/28/19 08:06 Glucose 104 mg/dL (75-100) H 05/28/19 08:06 Calcium 9.0 mg/dL (8.4-10.2) 05/28/19 08:06 0.013 ng/mL (0.00-0.029) 05/28/19 08:06 Assessment and Plan Assessment and plan: Chest pain in a setting of CAD, status post CABG and stents - Resume his home medications - Pain control - Troponin negative, we will do 2 more sets, there is EKG change but no STEMI - We'll follow cardiology recommendations Hypertension - Will resume home medications History of CVA - Resume home meds DVT prophylaxis - Heparin Disposition; admit to telemetry floor. Follow cardiology recommendations VTE prophylaxis?: Chemical Plan of care discussed with patient/family: Yes
[2019-05-28] MEDS ORDERED: DILAUDID ONE (10:23)
[2019-05-28 10:42] LABS: Anisocytosis 1+; Total Cells Counted 100
[2019-05-28 10:43] LABS: Large Platelets Few; Macrocytosis 1+; Platelet Estimate Consistent w Auto
--- NOTE | 2019-05-28 10:43 | Consultation ---
History of Present Illness Consult date: 05/28/19 Consult reason: chest pain History of present illness: 64 year old male presenting with chest pain. Patient was recently admitted to [facility] for NSTEMI and had a cardiac cath performed and required no intervention. He was recommended for medical therapy. Patient woke up at 3 am with retrosternal chest pain, not relieved after 4 NTG therefore he decided to come to the ER. Patient ran out of torsemide 3-4 days ago. He has worsening LE edema. Past History Past Medical History: CAD, heart failure, hypertension, stroke Past Surgical History: CABG Social history: full code. denies: smoking, alcohol abuse, prescription drug abuse, IV drug use Family history: no significant family history Medications and Allergies Allergies Allergy/AdvReac Type Severity Reaction Status Date / Time Iodinated Contrast- Oral and Allergy Itching Verified 05/28/19 07:37 IV Dye [Iodinated Contrast Media - IV Dye] Home Medications Medication Instructions Recorded Confirmed Last Taken Type Aspirin [Aspirin BABY CHEW TAB] 81 mg PO QDAY #30 tab.chew 10/04/18 Unknown Rx AtorvaSTATin [Lipitor] 40 mg PO QHS #30 tablet 10/04/18 Unknown Rx Carvedilol [Coreg] 25 mg PO DAILY #30 tablet 10/04/18 Unknown Rx Clopidogrel [Plavix] 75 mg PO QDAY #30 tablet 10/04/18 Unknown Rx ISOSORBIDE MONOnitrate [Imdur ER] 120 mg PO QDAY #30 tablet 10/04/18 Unknown Rx Losartan [Cozaar] 25 mg PO QDAY #30 tablet 10/04/18 Unknown Rx Nitroglycerin [Nitrostat] 0.4 mg SL .Q5MIN PRN #25 tab 10/04/18 Unknown Rx Pantoprazole [Protonix TAB] 40 mg PO QDAY #30 tablet 10/04/18 Unknown Rx Ranolazine ER [Ranexa ER] 1,000 mg PO BID #60 tablet 10/04/18 Unknown Rx Temazepam 30 mg PO QHS #30 capsule 10/04/18 Unknown Rx Torsemide [Demadex] 20 mg PO DAILY #30 tablet 10/04/18 Unknown Rx amLODIPine [Norvasc] 10 mg PO QDAY #30 tablet 10/04/18 Unknown Rx hydrALAZINE [Apresoline TAB] 25 mg PO TID #90 tablet 10/04/18 Unknown Rx Active Meds: Active Medications Atorvastatin Calcium (Lipitor) 40 mg PO QHS [facility] Carvedilol (Coreg) 25 mg PO DAILY [facility] Furosemide (Lasix) 40 mg IV ONCE ONE Stop: 05/28/19 10:10 Last Admin: 05/28/19 10:28 Dose: 40 mg Documented by: Furosemide (Lasix) 40 mg IV QDAY [facility] Heparin Sodium (Porcine) (Heparin) 5,000 unit SUB-Q Q8HR [facility] Hydralazine HCl (Apresoline) 25 mg PO TID [facility] Isosorbide Mononitrate (Imdur) 120 mg PO QDAY [facility] Losartan Potassium (Cozaar) 25 mg PO QDAY [facility] Miscellaneous Medication (Temazepam [Temazepam]) 30 mg PO QHS [facility] Nitroglycerin (Nitrostat) 0.4 mg SL .Q5MIN PRN PRN Reason: Chest Pain Last Admin: 05/28/19 09:10 Dose: 0.4 mg Documented by: Ranolazine (Ranexa Er) 1,000 mg PO BID [facility] Review of Systems All systems: negative Physical Examination Vital Signs Temp Pulse Resp BP Pulse Ox 97.7 F 89 18 173/98 96 05/28/19 07:41 05/28/19 07:41 05/28/19 07:41 05/28/19 07:41 05/28/19 07:41 General appearance: no acute distress HEENT: Positive: PERRL Neck: Positive: neck supple Cardiac: Positive: Reg Rate and Rhythm Lungs: Positive: Decreased Breath Sounds, Rales Neuro: Positive: Grossly Intact Abdomen: Positive: Soft Male genitourinary: Positive: normal Extremities: Present: edema Results 05/28/19 08:06 05/28/19 08:06 CBC 05/28/19 Range/Units 08:06 WBC 10.4 (4.5-11.0) K/mm3 RBC 4.30 (3.65-5.03) M/mm3 Hgb 14.6 (11.8-15.2) gm/dl Hct 43.4 (35.5-45.6) % Plt Count 156 (140-440) K/mm3 Comprehensive Metabolic Panel 05/28/19 Range/Units 08:06 Sodium 136 L (137-145) mmol/L Potassium 3.9 (3.6-5.0) mmol/L Chloride 101.8 (98-107) mmol/L Carbon Dioxide 20 L (22-30) mmol/L BUN 13 (9-20) mg/dL Creatinine 0.9 (0.8-1.5) mg/dL Glucose 104 H (75-100) mg/dL Calcium 9.0 (8.4-10.2) mg/dL - EKG Interpretation EKG: sinus rhythm EKG interpretations - Telemetry EKG Rhythm: Sinus Rhythm Assessment and Plan Assessment: Coronary artery disease s/p CABG and PCI Ischemic cardiomyopathy Recurrent angina Acute on Chronic combined systolic and diastolic heart failure Systemic Hypertension Hyperlipidemia History of CVA Peripheral vascular disease with claudication Cardiac cath at [facility] 04/07/2019: 1. Left main artery: 30%, tubular, distal disease 2. Proximal left anterior descending artery: 20% 3. Mid-Distal left anterior descending artery/diagonal artery: 100%. The LAD is occluded and the distal vessel fills via a patent JARRELL with a 50% stenosis distal to the anastomosis that is unchanged as compared to his prior angiograms in 2017 and 2016. The LAD has a patent stent into the diagonal with no significant stenosis. 4. Circumflex/obtuse marginal artery: multiple layers of stent in the proximal LCx with 50% ostial in-stent restenosis that is unchanged, small vessel runoff in the LCx territory; SVG to OM: absent 5. Ramus intermedius artery: occluded; SVG to Ramus: patent, with a patent stent at the anastomosis 6. Right coronary artery: occluded- fills via faint collaterals from left to right; SVG to PDA: known to be occluded 7. Coronary dominance: Right 8. LVEDP: 14mm Hg 9. LV-Aorta gradient: 0mm Hg 10. Coronary artery bypass grafts: 11. The JARRELL to LAD is patent 12. The SVG to the Ramus is patent 13. The SVG to the RCA is occluded, which is chronic Echo 04/04/2019: EF 40 - 45%. LVEF mild to moderately decreased. No change in LVEF compared to last echo on 02/201818 Grade II (moderate) diastolic dysfunction c/w pseudonormal. Elevated LVEDP. RV systolic function is normal. LA moderately dilated. Discharge medications from [facility]: Norvasc 10, aspirin 81, Lipitor 80, coreg 25, plavix 75, hydralazine 100, imdur 60, losartan 25, nitrodur patch, ranexa 1000, demadex 20 bid Recommendations: Resume outpatient anti-anginal therapy Observe for 24 hours on tele No further cardiac work-up is needed for recurrent angina symptoms
[2019-05-28] MEDS ORDERED: IMDUR PO SCH (11:00)
[2019-05-28] MEDS: PLAVIX PO SCH (12:39)
[2019-05-28] MEDS: COZAAR PO SCH (12:40)
[2019-05-28] MEDS: LASIX IV SCH (12:41)
[2019-05-28 13:00] LABS: Chol/HDL Ratio 2.88 %
[2019-05-28] MEDS: RANEXA ER PO SCH ×2 (13:42→22:20)
[2019-05-28] MEDS: COREG PO SCH (13:42)
[2019-05-28] MEDS: APRESOLINE PO SCH ×2 (13:44→22:20)
[2019-05-28] MEDS: HEPARIN SUB-Q SCH ×2 (13:54→22:19)
[2019-05-28] MEDS: MORPHINE IV PRN ×2 (13:58→22:47)
[2019-05-28] MEDS ORDERED: PLAVIX PO SCH (14:00)
[2019-05-28] MEDS ORDERED: APRESOLINE PO SCH (14:00)
[2019-05-28] MEDS ORDERED: NON-FORMULARY (Temazepam [Temazepam] 30 MG) PO SCH (22:00)
[2019-05-28] MEDS: RESTORIL PO SCH (22:21)
[2019-05-29] MEDS: HEPARIN SUB-Q SCH ×3 (05:31→22:13)
[2019-05-29] MEDS: LASIX IV SCH ×3 (05:31→19:42)
[2019-05-29 06:19] LABS: BUN/Creatinine Ratio 13; Blood Urea Nitrogen 14 mg/dL (9-20); Hemolysis Index 19
[2019-05-29] MEDS ORDERED: LASIX IV SCH (10:00)
[2019-05-29] MEDS: PLAVIX PO SCH (10:03)
[2019-05-29] MEDS: RANEXA ER PO SCH ×2 (10:03→22:12)
[2019-05-29] MEDS: APRESOLINE PO SCH ×3 (10:04→22:13)
[2019-05-29] MEDS: IMDUR PO SCH (10:05)
[2019-05-29] MEDS: HALFPRIN EC PO SCH (10:06)
[2019-05-29] MEDS: NORVASC PO SCH (10:06)
[2019-05-29] MEDS: COZAAR PO SCH (10:06)
[2019-05-29] MEDS: COREG PO SCH (10:06)
--- NOTE | 2019-05-29 10:11 | Progress Note ---
Assessment and Plan 1. Chronic stable class III angina 2. Coronary artery disease status post H 3. Essential hypertension 4. Hyperlipidemia lipidemia 5. History of CVA Plan. Patient is currently stable and chest pain free. Maximize anti-ischemic medication. No further cardiac workup planned. Subjective Date of service: 05/29/19 Interval history: Feels better today no chest pain Objective Vital Signs Temp Pulse Resp Resp BP BP Pulse Ox 05/29/19 10:06 78 150/74 05/29/19 10:05 74 05/29/19 10:04 78 150/74 05/29/19 08:00 18 05/29/19 05:05 97.6 F 05/29/19 05:04 76 20 150/76 94 05/29/19 00:10 98.4 F 05/29/19 00:09 90 20 136/66 95 05/28/19 22:47 20 05/28/19 20:45 86 05/28/19 19:48 98.0 F 05/28/19 19:45 86 18 128/64 96 05/28/19 16:28 98.0 F 83 20 157/86 98 05/28/19 15:26 20 05/28/19 15:00 20 05/28/19 14:28 20 05/28/19 13:58 20 05/28/19 12:40 76 180/80 05/28/19 11:04 78 22 179/84 95 05/28/19 10:35 82 20 181/92 95 - Physical Examination General: Appears Well, No Apparent Distress HEENT: Positive: PERRL Neck: Positive: neck supple. Negative: JVD/HJR Cardiac: Positive: Reg Rate and Rhythm, S1/S2, S3, PMI, Dilated, Laterally Displaced Lungs: Positive: Normal Exam, No Wheeze, Rales, Rhonchi. Negative: clear to auscultation Neuro: Positive: Grossly Intact Abdomen: Positive: Unremarkable, Soft, Active Bowel Sounds Extremities: Absent: edema - Labs and Meds Lipids 05/28/19 Range/Units 11:23 Triglycerides 88 (2-149) mg/dL Cholesterol 176 (50-199) mg/dL HDL Cholesterol 61 H (40-59) mg/dL Cholesterol/HDL Ratio 2.88 % Comprehensive Metabolic Panel 05/29/19 Range/Units 04:53 Sodium 139 (137-145) mmol/L Potassium 3.5 L (3.6-5.0) mmol/L Chloride 101.4 (98-107) mmol/L Carbon Dioxide 27 D (22-30) mmol/L BUN 14 (9-20) mg/dL Creatinine 1.1 (0.8-1.5) mg/dL Glucose 101 H (75-100) mg/dL Calcium 9.0 (8.4-10.2) mg/dL
--- NOTE | 2019-05-29 14:16 | Progress Note ---
Assessment and Plan Assessment and plan: Chest pain. Pt with further complaints this a.m. CAD, status post CABG and stents - Cont. his home medications - Pain control - Troponin negative - Cardiology consulted, await recommendation given continued CP Hypertension - Cont. home medications History of CVA DVT prophylaxis - Heparin History Interval history: Pt still c/o CP this am Hospitalist Physical - Constitutional Vitals: Temp Pulse Resp BP Pulse Ox 98.4 F 105 H 14 154/71 96 05/29/19 13:02 05/29/19 13:02 05/29/19 13:02 05/29/19 13:02 05/29/19 13:02 General appearance: Present: no acute distress - EENT Eyes: Present: PERRL, EOM intact ENT: hearing intact, clear oral mucosa, dentition normal - Neck Neck: Present: supple, normal ROM - Respiratory Respiratory effort: normal Respiratory: bilateral: CTA - Cardiovascular Rhythm: regular Heart Sounds: Present: S1 & S2. Absent: gallop, rub - Extremities Extremities: no ischemia, No edema, Full ROM - Abdominal General gastrointestinal: soft, non-tender, non-distended, normal bowel sounds - Integumentary Integumentary: Present: clear, warm, dry - Neurologic Neurologic: CNII-XII intact, moves all extremities Results - Labs CBC & Chem 7: 05/28/19 08:06 05/29/19 04:53 Labs: Laboratory Last Values WBC 10.4 K/mm3 (4.5-11.0) 05/28/19 08:06 RBC 4.30 M/mm3 (3.65-5.03) 05/28/19 08:06 Hgb 14.6 gm/dl (11.8-15.2) 05/28/19 08:06 Hct 43.4 % (35.5-45.6) 05/28/19 08:06 MCV 101 fl (84-94) H 05/28/19 08:06 MCH 34 pg (28-32) H 05/28/19 08:06 MCHC 34 % (32-34) 05/28/19 08:06 RDW 13.6 % (13.2-15.2) 05/28/19 08:06 Plt Count 156 K/mm3 (140-440) 05/28/19 08:06 Add Manual Diff Complete 05/28/19 08:06 Total Counted 100 05/28/19 08:06 Seg Neuts % (Manual) 84.0 % (40.0-70.0) H 05/28/19 08:06 0 % 05/28/19 08:06 7.0 % (13.4-35.0) L 05/28/19 08:06 Reactive Lymphs % (Man) 0 % 05/28/19 08:06 5.0 % (0.0-7.3) 05/28/19 08:06 3.0 % (0.0-4.3) 05/28/19 08:06 1.0 % (0.0-1.8) 05/28/19 08:06 0 % 05/28/19 08:06 0 % 05/28/19 08:06 0 % 05/28/19 08:06 0 % 05/28/19 08:06 Nucleated RBC % Not Reportable 05/28/19 08:06 Seg Neutrophils # Man 8.7 K/mm3 (1.8-7.7) H 05/28/19 08:06 Band Neutrophils # 0.0 K/mm3 05/28/19 08:06 0.7 K/mm3 (1.2-5.4) L 05/28/19 08:06 Abs React Lymphs (Man) 0.0 K/mm3 05/28/19 08:06 0.5 K/mm3 (0.0-0.8) 05/28/19 08:06 0.3 K/mm3 (0.0-0.4) 05/28/19 08:06 0.1 K/mm3 (0.0-0.1) 05/28/19 08:06 0.0 K/mm3 05/28/19 08:06 0.0 K/mm3 05/28/19 08:06 0.0 K/mm3 05/28/19 08:06 Blast Cells # 0.0 K/mm3 05/28/19 08:06 WBC Morphology Not Reportable 05/28/19 08:06 Hypersegmented Neuts Not Reportable 05/28/19 08:06 Hyposegmented Neuts Not Reportable 05/28/19 08:06 Hypogranular Neuts Not Reportable 05/28/19 08:06 Not Reportable 05/28/19 08:06 Not Reportable 05/28/19 08:06 Not Reportable 05/28/19 08:06 Not Reportable 05/28/19 08:06 Not Reportable 05/28/19 08:06 Not Reportable 05/28/19 08:06 Consistent w auto 05/28/19 08:06 Not Reportable 05/28/19 08:06 Plt Clumps, EDTA Not Reportable 05/28/19 08:06 Few 05/28/19 08:06 Not Reportable 05/28/19 08:06 Not Reportable 05/28/19 08:06 Plt Morphology Comment Not Reportable 05/28/19 08:06 RBC Morphology Not Reportable 05/28/19 08:06 Dimorphic RBCs Not Reportable 05/28/19 08:06 Not Reportable 05/28/19 08:06 Not Reportable 05/28/19 08:06 Not Reportable 05/28/19 08:06 1+ 05/28/19 08:06 Not Reportable 05/28/19 08:06 1+ 05/28/19 08:06 Not Reportable 05/28/19 08:06 Not Reportable 05/28/19 08:06 Not Reportable 05/28/19 08:06 Not Reportable 05/28/19 08:06 Not Reportable 05/28/19 08:06 Not Reportable 05/28/19 08:06 Not Reportable 05/28/19 08:06 Not Reportable 05/28/19 08:06 Not Reportable 05/28/19 08:06 Not Reportable 05/28/19 08:06 Not Reportable 05/28/19 08:06 Not Reportable 05/28/19 08:06 Not Reportable 05/28/19 08:06 Acanthocytes (Spur) Not Reportable 05/28/19 08:06 Rouleaux Not Reportable 05/28/19 08:06 Not Reportable 05/28/19 08:06 Not Reportable 05/28/19 08:06 Not Reportable 05/28/19 08:06 Not Reportable 05/28/19 08:06 Hem Pathologist Commnt No 05/28/19 08:06 Sodium 139 mmol/L (137-145) 05/29/19 04:53 Potassium 3.5 mmol/L (3.6-5.0) L 05/29/19 04:53 Chloride 101.4 mmol/L (98-107) 05/29/19 04:53 Carbon Dioxide 27 mmol/L (22-30) D 05/29/19 04:53 14 mmol/L 05/29/19 04:53 BUN 14 mg/dL (9-20) 05/29/19 04:53 1.1 mg/dL (0.8-1.5) 05/29/19 04:53 Estimated GFR > 60 ml/min 05/29/19 04:53 13 % 05/29/19 04:53 Glucose 101 mg/dL (75-100) H 05/29/19 04:53 Calcium 9.0 mg/dL (8.4-10.2) 05/29/19 04:53 0.133 ng/mL (0.00-0.029) H* D 05/28/19 13:54 Triglycerides 88 mg/dL (2-149) 05/28/19 11:23 Cholesterol 176 mg/dL (50-199) 05/28/19 11:23 109 mg/dL (50-130) 05/28/19 11:23 61 mg/dL (40-59) H 05/28/19 11:23 2.88 % 05/28/19 11:23 Active Medications - Current Medications Current Medications: Generic Name Dose Route Start Last Admin Trade Name Clau PRN Reason Stop Dose Admin Amlodipine Besylate 10 mg 05/29/19 10:00 05/29/19 10:06 Norvasc PO 10 mg QDAY [facility] Administration Aspirin 81 mg 05/29/19 10:00 05/29/19 10:06 Halfprin Ec PO 81 mg QDAY [facility] Administration Atorvastatin Calcium 80 mg 05/28/19 22:00 05/28/19 22:19 Lipitor PO 80 mg QHS [facility] Administration Carvedilol 25 mg 05/28/19 11:00 05/29/19 10:06 Coreg PO 25 mg DAILY [facility] Administration Clopidogrel Bisulfate 75 mg 05/28/19 12:00 05/29/19 10:03 Plavix PO 75 mg QDAY [facility] Administration Furosemide 40 mg 05/29/19 06:00 05/29/19 05:31 Lasix IV 40 mg Q12H [facility] Administration Heparin Sodium (Porcine) 5,000 unit 05/28/19 14:00 07/06/19 05:31 Heparin SUB-Q 5,000 unit Q8HR [facility] Administration Hydralazine HCl 100 mg 05/28/19 14:00 05/29/19 10:04 Apresoline PO 100 mg TID [facility] Administration Isosorbide Mononitrate 60 mg 05/28/19 11:38 05/29/19 10:05 Imdur PO 60 mg QDAY [facility] Administration Losartan Potassium 25 mg 05/28/19 11:00 05/29/19 10:06 Cozaar PO 25 mg QDAY [facility] Administration Morphine Sulfate 2 mg 05/28/19 13:04 05/28/19 22:47 Morphine IV 2 mg Q4H PRN Administration Pain, Moderate (4-6) Nitroglycerin 0.4 mg 05/28/19 08:19 05/28/19 09:10 Nitrostat SL 0.4 mg .Q5MIN PRN Administration Chest Pain Ranolazine 1,000 mg 05/28/19 11:00 05/29/19 10:03 Ranexa Er PO 1,000 mg BID [facility] Administration Temazepam 30 mg 05/28/19 22:00 05/28/19 22:21 Restoril PO 30 mg QHS [facility] Administration
[2019-05-29] MEDS ORDERED: PERCOCET 5/325 PO PRN (16:23)
[2019-05-29] MEDS ORDERED: MORPHINE IV ONE (17:09)
[2019-05-29] MEDS ORDERED: MORPHINE ONE (17:18)
[2019-05-29] MEDS ORDERED: MORPHINE IV PRN (17:28)
[2019-05-29] MEDS ORDERED: NITRO-BID 2% TP ONE ×2 (18:01→19:00)
[2019-05-29] MEDS: RESTORIL PO SCH (22:13)
[2019-05-30] MEDS: HEPARIN SUB-Q SCH ×2 (06:08→13:48)
[2019-05-30] MEDS: LASIX IV SCH (06:09)
[2019-05-30] MEDS: APRESOLINE PO SCH ×2 (08:00→13:46)
[2019-05-30] MEDS: COZAAR PO SCH (09:53)
[2019-05-30] MEDS: IMDUR PO SCH (09:54)
[2019-05-30] MEDS: NORVASC PO SCH (09:54)
[2019-05-30] MEDS: RANEXA ER PO SCH (09:59)
[2019-05-30] MEDS: PLAVIX PO SCH (09:59)
[2019-05-30] MEDS: HALFPRIN EC PO SCH (09:59)
[2019-05-30] MEDS: COREG PO SCH (09:59)
--- NOTE | 2019-05-30 10:21 | Progress Note ---
Assessment and Plan 1. Chronic stable class III angina 2. Coronary artery disease status post H 3. Essential hypertension 4. Hyperlipidemia lipidemia 5. History of CVA Plan. Patient is currently stable and chest pain free. Maximize anti-ischemic medication. No further cardiac workup planned. Subjective Date of service: 05/30/19 Interval history: Feels better today no chest pain Objective Vital Signs Temp Pulse Resp BP Pulse Ox 05/30/19 09:59 92 H 110/68 05/30/19 09:54 92 H 110/68 05/30/19 09:53 92 H 110/68 05/30/19 08:44 98.3 F 92 H 16 110/68 94 05/30/19 08:26 93 H 05/30/19 08:00 92 H 110/68 05/30/19 06:07 97.5 F L 05/30/19 06:06 92 H 18 133/63 96 05/30/19 04:00 105 H 05/30/19 00:14 98.8 F 05/30/19 00:13 107 H 18 111/52 93 05/30/19 00:00 18 05/29/19 20:25 98.4 F 05/29/19 20:23 91 H 20 138/70 95 05/29/19 20:00 89 05/29/19 18:26 16 117/60 05/29/19 18:24 91 H 117/60 97 05/29/19 18:01 100 H 160/78 05/29/19 17:51 20 05/29/19 17:00 98.3 F 110 H 18 161/74 99 05/29/19 15:00 150/76 05/29/19 13:02 98.4 F 105 H 14 154/71 96 05/29/19 12:00 80 18 - Physical Examination General: Appears Well, No Apparent Distress HEENT: Positive: PERRL Neck: Positive: neck supple. Negative: JVD/HJR Cardiac: Positive: Regular Rate, S1/S2, PMI, Laterally Displaced Lungs: Positive: clear to auscultation, No Wheeze, Rales, Rhonchi Neuro: Positive: Grossly Intact Abdomen: Positive: Unremarkable, Soft, Active Bowel Sounds Extremities: Absent: edema
--- NOTE | 2019-05-30 13:15 | Discharge Summary ---
Providers - Providers Date of Admission: 05/28/19 08:20 Attending physician: LETA HULL MD 05/28/19 08:16 Consult to Physician [CONS] Urgent Comment: Consulting Provider: ISSA SHABAZZ Physician Instructions: Reason For Exam: acute on chronic angina Primary care physician: CASPER DELGADO MD Hospitalization Condition: Stable Hospital course: 64-year-old man with history of coronary artery disease who presents with chest pain. ACS was ruled out. He was seen by cardiology who diagnosed him as having chronic stable class III angina. He was medically treated, no further cardiac workup was recommended. The patient was discharged Diagnoses Chest pain due to chronic angina Hypertension History of CVA Disposition: - TO HOME OR SELFCARE Time spent for discharge: 35 minutes Core Measure Documentation - Palliative Care Palliative Care/ Comfort Measures: Not Applicable - Core Measures Any of the following diagnoses?: none Exam - Constitutional Vitals: Temp Pulse Resp BP Pulse Ox 98.3 F 92 H 16 110/68 94 05/30/19 08:44 05/30/19 10:48 05/30/19 10:48 05/30/19 09:59 05/30/19 10:48 General appearance: Present: no acute distress, well-nourished - EENT Eyes: Present: PERRL ENT: hearing intact, clear oral mucosa - Neck Neck: Present: supple, normal ROM - Respiratory Respiratory effort: normal Respiratory: bilateral: CTA - Cardiovascular Heart Sounds: Present: S1 & S2. Absent: rub, click - Extremities Extremities: pulses symmetrical, No edema Peripheral Pulses: within normal limits - Abdominal General gastrointestinal: Present: soft, non-tender, non-distended, normal bowel sounds Male genitourinary: Present: normal - Integumentary Integumentary: Present: clear, warm, dry - Musculoskeletal Musculoskeletal: gait normal, strength equal bilaterally - Psychiatric Psychiatric: appropriate mood/affect, intact judgment & insight - Neurologic Neurologic: CNII-XII intact, moves all extremities Plan Follow up with: CASPER SOTO MD [Primary Care Provider] - 3-5 Days
[2019-05-30 13:35] VITALS: BP 121/64
== END 2019-05-30 15:30 | disposition home or self-care (01) ==
LOC: ED 07:36 → 4A 08:20
PROVIDERS: ADMIT Internal Medicine; ATTEND Internal Medicine
DX: I25.119 Atherosclerotic heart disease of native coronary artery with unspecified angina pectoris (principal); R07.89 Other chest pain; I11.0 Hypertensive heart disease with heart failure; I50.43 Acute on chronic combined systolic (congestive) and diastolic (congestive) heart failure; I25.5 Ischemic cardiomyopathy; E78.5 Hyperlipidemia, unspecified; I73.9 Peripheral vascular disease, unspecified; Z79.899 Other long term (current) drug therapy; Z86.73 Personal history of transient ischemic attack (TIA), and cerebral infarction without residual deficits; Z95.1 Presence of aortocoronary bypass graft; Z87.891 Personal history of nicotine dependence
CPT/HCPCS: 36415; 71045; 80048; 80061; 84484; 85007; 85025; 93005; 93010; 96372; 96374; 96375; 96376; 99284; A9270; G0378; J1170; J1644; J1940; J2270; J2405

== ENCOUNTER 2019-07-20 08:49 | Observation (INO) | payer MEDICARE ==
[2019-07-20] MEDS ORDERED: ASPIRIN PO ONE (09:02)
[2019-07-20 09:30] LABS: Basophils # (Auto) 0.1 K/mm3 (0.0-0.1); Basophils % (Auto) 0.7 % (0.0-1.8); Eosinophils # (Auto) 0.1 K/mm3 (0.0-0.4); Eosinophils % (Auto) 1.5 % (0.0-4.3); Hematocrit 41.2 % (35.5-45.6); Hemoglobin 14.3 gm/dl (11.8-15.2); Lymphocytes # (Auto) 1.2 K/mm3 (1.2-5.4); Mean Corpuscular HGB Conc 35 % (32-34); Mean Corpuscular Volume 100 fl (84-94); Monocytes # (Auto) 0.4 K/mm3 (0.0-0.8); Monocytes % (Auto) 5.2 % (0.0-7.3); Red Blood Count 4.14 M/mm3 (3.65-5.03); Red Cell Distribution Width 13.5 % (13.2-15.2)
--- NOTE | 2019-07-20 09:39 | XRay Report ---
CHEST 1 VIEW INDICATION / CLINICAL INFORMATION: Chest Pain. COMPARISON: 05/28/2019 FINDINGS: SUPPORT DEVICES: None. HEART / MEDIASTINUM: Changes of prior median sternotomy are noted. LUNGS / PLEURA: There is interstitial disease noted in the lung bases. There is mild venous congestio n No pneumothorax. ADDITIONAL FINDINGS: No significant additional findings. IMPRESSION: 1. There is mild basilar interstitial disease. There is mild venous congestion. Signer Name: Jett Noble MD Signed: 07/20/2019 9:35 AM Workstation Name: [id number]
[2019-07-20 09:47] LABS: BUN/Creatinine Ratio 13; Blood Urea Nitrogen 13 mg/dL (9-20); Calcium 9.4 mg/dL (8.4-10.2); Hemolysis Index 13
[2019-07-20] MEDS ORDERED: NITROSTAT SL PRN (10:08)
[2019-07-20] MEDS ORDERED: LASIX IV ONE (10:08)
[2019-07-20] MEDS ORDERED: MORPHINE IV ONE ×2 (10:08→17:49)
--- NOTE | 2019-07-20 10:11 | Emergency Department Report ---
ED Chest Pain HPI - General Chief Complaint: Chest Pain Stated Complaint: CHESTPAIN Time Seen by Provider: 07/20/19 09:59 Source: patient, RN notes reviewed Mode of arrival: Ambulatory Limitations: No Limitations - History of Present Illness Initial Comments: This is a 64-year-old gentleman. I have evaluated this patient in the past. He typically follows at the [facility]. His past medical history includes ischemic heart disease, stents, cardiac bypass, congestive heart failure, chronic angina, on multiple antianginal medicines, including ranexa, imdur, nitro The patient presents to the ER today with a complaint of nontraumatic left-sided chest pain. It is described as burning and stabbing in nature, and radiates to the back, and neck. The patient endorses shortness of breath, lower extremity swelling, an unintentional 4 pound weight gain. Endorses compliance with his medications. He reports that he had similar pain last week, however, it subsided with nitroglycerin. The patient denies DVT, pulmonary embolus risk factors. He denies other complaints at this time. MD Complaint: chest pain -: hour(s) (3 am) Onset: during rest Pain Radiation: LUE, back, neck Severity: moderate Severity scale (0 -10): 5 Quality: tightness, aching Consistency: intermittent Improves With: medication-other, rest Worsens With: movement Treatments Prior to Arrival: aspirin, nitroglycerin Aspirin use within the Past 7 Days: (1) Yes - Related Data On Oral Contraceptives: No Home Medications Medication Instructions Recorded Confirmed Last Taken ISOSORBIDE MONOnitrate [Imdur ER] 60 mg PO BID 05/28/19 07/20/19 07/19/19 Lisinopril [Zestril TAB] 5 mg PO QDAY 05/28/19 07/20/19 07/19/19 Potassium Chloride [K-Dur] 10 meq PO QDAY 05/28/19 07/20/19 07/19/19 Ranitidine HCl [Zantac] 300 mg PO BID 05/28/19 07/20/19 07/19/19 Torsemide [Demadex] 40 mg PO BID 05/28/19 07/20/19 07/19/19 risperiDONE [RisperDAL] 0.5 mg PO BID 05/28/19 07/20/19 07/19/19 Previous Rx's Medication Instructions Recorded Last Taken Type Aspirin [Aspirin BABY CHEW TAB] 81 mg PO QDAY #30 tab.chew 10/04/18 07/19/19 Rx Carvedilol [Coreg] 25 mg PO DAILY #30 tablet 10/04/18 07/19/19 Rx Clopidogrel [Plavix] 75 mg PO QDAY #30 tablet 10/04/18 07/19/19 Rx Losartan [Cozaar] 25 mg PO QDAY #30 tablet 10/04/18 07/19/19 Rx Ranolazine ER [Ranexa ER] 1,000 mg PO BID #60 tablet 10/04/18 07/19/19 Rx Temazepam 30 mg PO QHS #30 capsule 10/04/18 07/19/19 Rx amLODIPine [Norvasc] 10 mg PO QDAY #30 tablet 10/04/18 07/19/19 Rx hydrALAZINE [Apresoline TAB] 25 mg PO TID #90 tablet 10/04/18 07/19/19 Rx AtorvaSTATin [Lipitor] 80 mg PO QHS tablet 05/30/19 07/19/19 Rx Nitroglycerin [Nitrostat] 0.4 mg SL .Q5MIN PRN #60 tab 05/30/19 07/19/19 Rx Allergies Allergy/AdvReac Type Severity Reaction Status Date / Time hydrocodone Allergy Unknown Unknown Verified 05/29/19 17:35 acetaminophen [From Percocet] Allergy Unknown Verified 05/29/19 17:33 Iodinated Contrast- Oral and Allergy Itching Verified 05/28/19 07:37 IV Dye [Iodinated Contrast Media - IV Dye] oxycodone [From Percocet] Allergy Unknown Verified 05/29/19 17:33 Heart Score - HEART Score History: Moderately suspicious EKG: Non-specific Age: 45-65 Risk factors: > 3 risk factors or hx of atherosclerotic disease Troponin: < normal limit HEART Score: 5 - Critical Actions Critical Actions: 4-6 pts:12-16.6% risk of adverse cardiac event. Should be admitted ED Review of Systems ROS: Stated complaint: CHESTPAIN Other details as noted in HPI Constitutional: malaise. denies: fever Eyes: denies: eye discharge ENT: denies: epistaxis, congestion Respiratory: shortness of breath. denies: wheezing Cardiovascular: chest pain, edema Gastrointestinal: denies: vomiting Genitourinary: denies: dysuria Musculoskeletal: denies: myalgia Skin: denies: lesions Neurological: weakness Psychiatric: anxiety ED Past Medical Hx - Past Medical History Previous Medical History?: Yes Hx Hypertension: Yes Hx CVA: Yes Hx Heart Attack/AMI: Yes Hx Congestive Heart Failure: Yes Hx Diabetes: No Hx Deep Vein Thrombosis: Yes Hx Pulmonary Embolism: No Hx Liver Disease: No Hx Sickle Cell Disease: No Hx Arthritis: No Hx Seizures: No Hx Kidney Stones: No Hx Asthma: No Hx COPD: No Hx Tuberculosis: No Hx Dementia: No Hx HIV: No Additional medical history: high cholesterol. 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 - Social History Smoking Status: Former Smoker Substance Use Type: Alcohol - Medications Home Medications: Home Medications Medication Instructions Recorded Confirmed Last Taken Type Aspirin [Aspirin BABY CHEW TAB] 81 mg PO QDAY #30 tab.chew 10/04/18 07/20/19 07/19/19 Rx Carvedilol [Coreg] 25 mg PO DAILY #30 tablet 10/04/18 07/20/19 07/19/19 Rx Clopidogrel [Plavix] 75 mg PO QDAY #30 tablet 10/04/18 07/20/19 07/19/19 Rx Losartan [Cozaar] 25 mg PO QDAY #30 tablet 10/04/18 07/20/19 07/19/19 Rx Ranolazine ER [Ranexa ER] 1,000 mg PO BID #60 tablet 10/04/18 07/20/19 07/19/19 Rx Temazepam 30 mg PO QHS #30 capsule 10/04/18 07/20/19 07/19/19 Rx amLODIPine [Norvasc] 10 mg PO QDAY #30 tablet 10/04/18 07/20/19 07/19/19 Rx hydrALAZINE [Apresoline TAB] 25 mg PO TID #90 tablet 10/04/18 07/20/19 07/19/19 Rx ISOSORBIDE MONOnitrate [Imdur ER] 60 mg PO BID 05/28/19 07/20/19 07/19/19 History Lisinopril [Zestril TAB] 5 mg PO QDAY 05/28/19 07/20/19 07/19/19 History Potassium Chloride [K-Dur] 10 meq PO QDAY 05/28/19 07/20/19 07/19/19 History Ranitidine HCl [Zantac] 300 mg PO BID 05/28/19 07/20/19 07/19/19 History Torsemide [Demadex] 40 mg PO BID 05/28/19 07/20/19 07/19/19 History risperiDONE [RisperDAL] 0.5 mg PO BID 05/28/19 07/20/19 07/19/19 History AtorvaSTATin [Lipitor] 80 mg PO QHS tablet 05/30/19 07/20/19 07/19/19 Rx Nitroglycerin [Nitrostat] 0.4 mg SL .Q5MIN PRN #60 tab 05/30/19 07/20/19 07/19/19 Rx ED Physical Exam - General Limitations: No Limitations General appearance: alert, anxious, obese - Head Head exam: Present: atraumatic, normocephalic - Eye Eye exam: Present: normal appearance, EOMI. Absent: nystagmus - ENT ENT exam: Present: normal exam, normal orophraynx, mucous membranes moist, normal external ear exam - Neck Neck exam: Present: normal inspection, full ROM. Absent: tenderness, meningismus - Respiratory Respiratory exam: Present: decreased breath sounds. Absent: wheezes, rhonchi, stridor - Cardiovascular Cardiovascular Exam: Present: regular rate, normal rhythm, normal heart sounds. Absent: bradycardia, tachycardia, irregular rhythm, systolic murmur, diastolic murmur, rubs, gallop - GI/Abdominal GI/Abdominal exam: Present: soft. Absent: distended, tenderness, guarding, rebound, rigid, pulsatile mass - Rectal Rectal exam: Present: deferred - Extremities Exam Extremities exam: Present: normal inspection, full ROM, pedal edema, other (2+ pulses noted in the bilateral upper, lower extremities. Compartments soft. No long bony tenderness. The pelvis is stable.). Absent: calf tenderness - Back Exam Back exam: Present: normal inspection, full ROM. Absent: tenderness, CVA tenderness (R), CVA tenderness (L), paraspinal tenderness, vertebral tenderness - Neurological Exam Neurological exam: Present: alert, other (Extraocular movements intact. Tongue midline. No facial droop. Facial sensation intact to light touch in the V1, V2, V3 distribution bilaterally. 5 and 5 strength in 4 extremities.. Sensation is intact to light touch in 4 extremities.). Absent: motor sensory deficit - Psychiatric Psychiatric exam: Present: anxious - Skin Skin exam: Present: warm, dry, intact, normal color. Absent: rash ED Course Vital Signs 07/20/19 07/20/19 07/20/19 09:00 09:54 10:50 Temperature 98.1 F 98.2 F Pulse Rate 77 79 85 Respiratory 18 13 Rate Blood Pressure 184/99 164/85 Blood Pressure 178/96 [Right] O2 Sat by Pulse 98 96 Oximetry RAS score - Ras Score Age > 65: (0) No Aspirin use within the Past 7 Days: (1) Yes 3 or more CAD Risk Factors: (1) Yes 2 or more Angina events in past 24 hrs: (1) Yes Known CAD with more than 50% Stenosis: (1) Yes (as per catheterization report 2013, patient had severe disease.) Elevated Cardiac Markers: (1) Yes ST Deviation Greater than 0.5mm: (0) No RAS Score: 5 ED Medical Decision Making - Lab Data Result diagrams: 07/20/19 09:07 07/20/19 09:07 Vital Signs 07/20/19 07/20/19 07/20/19 09:00 09:54 10:50 Temperature 98.1 F 98.2 F Pulse Rate 77 79 85 Respiratory 18 13 Rate Blood Pressure 184/99 164/85 Blood Pressure 178/96 [Right] O2 Sat by Pulse 98 96 Oximetry Lab Results 07/20/19 07/20/19 07/20/19 Range/Units 09:07 09:07 10:14 WBC 8.1 (4.5-11.0) K/mm3 RBC 4.14 (3.65-5.03) M/mm3 Hgb 14.3 (11.8-15.2) gm/dl Hct 41.2 (35.5-45.6) % MCV 100 H (84-94) fl MCH 34 H (28-32) pg MCHC 35 H (32-34) % RDW 13.5 (13.2-15.2) % Plt Count 131 L (140-440) K/mm3 Lymph % (Auto) 15.0 (13.4-35.0) % Ponce % (Auto) 5.2 (0.0-7.3) % Eos % (Auto) 1.5 (0.0-4.3) % Baso % (Auto) 0.7 (0.0-1.8) % Lymph # 1.2 (1.2-5.4) K/mm3 Ponce # 0.4 (0.0-0.8) K/mm3 Eos # 0.1 (0.0-0.4) K/mm3 Baso # 0.1 (0.0-0.1) K/mm3 Seg Neutrophils % 77.6 H (40.0-70.0) % Seg Neutrophils # 6.3 (1.8-7.7) K/mm3 PT 13.6 (12.2-14.9) Sec. INR 1.07 (0.87-1.13) APTT 24.1 L (24.2-36.6) Sec. Sodium 140 (137-145) mmol/L Potassium 3.9 (3.6-5.0) mmol/L Chloride 104.4 (98-107) mmol/L Carbon Dioxide 23 (22-30) mmol/L Anion Gap 17 mmol/L BUN 13 (9-20) mg/dL Creatinine 1.0 (0.8-1.5) mg/dL Estimated GFR > 60 ml/min BUN/Creatinine Ratio 13 % Glucose 132 H (75-100) mg/dL Calcium 9.4 (8.4-10.2) mg/dL Troponin T < 0.010 (0.00-0.029) ng/mL - EKG Data -: EKG Interpreted by Dc - EKG Data 07/20/19 11:39 EKG shows premature ventricular contractions, sinus rhythm, not consistent with ST elevation myocardial infarction, appears to be unchanged from prior. 07/20/19 11:39 This is a sinus rhythm, 77 minute, QTC 446 ms, left ventricular hypertrophy, T- wave inversions, left bundle-branch block, the EKG is abnormal, the EKG appears to be mostly unchanged from prior EKG with the exception of T wave inversions V2, V3, these appeared to be new when compared to prior EKG. - Radiology Data Radiology results: report reviewed, image reviewed Print Report Referring Physician: ANNY HONG Patient Name: TAYLOR WALKER Date of : 1955 Sex: Male Report Date: 2019-07-20 Report Status: Finalized Findings [facility] [address] [place] [address] XRay Report Signed Patient: TAYLOR WALKER MR#: [id number] 8 : 1955 Acct:[id number] Age/Sex: 64 / M ADM Date: 07/20/19 Loc: ED Attending Dr: Ordering Physician: ANNY HONG MD Date of Service: 07/20/19 Procedure(s): XR chest 1V ap Accession Number(s): [id number] cc: ANNY HONG MD Fluoro Time In Minutes: CHEST 1 VIEW INDICATION / CLINICAL INFORMATION: Chest Pain. COMPARISON: 05/28/2019 FINDINGS: SUPPORT DEVICES: None. HEART / MEDIASTINUM: Changes of prior median sternotomy are noted. LUNGS / PLEURA: There is interstitial disease noted in the lung bases. There is mild venous congestion No pneumothorax. ADDITIONAL FINDINGS: No significant additional findings. IMPRESSION: 1. There is mild basi lar interstitial disease. There is mild venous congestion. Signer Name: Jett Noble MD Signed: 07/20/2019 9:35 AM Workstation Name: [id number] Transcribed By: SS Dictated By: Jett Noble MD Electronically Authenticated By: Jett Noble MD Signed Date/Time: 07/20/19 0925 - Medical Decision Making Differential diagnosis, including but not limited to: Acute coronary syndrome, stable angina, unstable angina, congestive heart failure Assessment and plan: 64-year-old gentleman, not tachycardic, not hypoxic, low risk by well's criteria, most likely with exacerbation of underlying ischemic cardiomyopathy, and congestive heart failure. We'll treat his pain, and she with high-dose Lasix. Have requested urgent cardiology consult, and have disc ussed the case with Tanisha Merino, working with Dr Sam Green, her group will evaluate the patient. The patient is currently resting in his stretcher, and appears to be improved. The Hospital physician, Dr. Elder Garcia, will admit the patient to the medical service This plan of care is discussed with the patient and his , who are both in agreement with this plan of care. The patient states he does not have an allergy to morphine and he can tolerate morphine for pain control. Critical Care Time: Yes Critical care time in (mins) excluding proc time.: 35 Critical care attestation.: If time is entered above; I have spent that time in minutes in the direct care of this critically ill patient, excluding procedure time. ED Disposition Clinical Impression: Unstable angina, Ischemic cardiomyopathy, CHF (congestive heart failure) Disposition: OP ADMIT IP TO THIS HOSP Is pt being admited?: Yes Condition: Good
[2019-07-20 10:36] LABS: INR 1.07 (0.87-1.13); Partial Thromboplastin Time 24.1 Sec. (24.2-36.6)
--- NOTE | 2019-07-20 11:20 | History and Physical Report ---
History of Present Illness Date of examination: 07/20/19 Date of admission: 07/20/19 10:26 History of present illness: 64-year-old male with past medical history significant for congestive heart failure, CAD status post CABG, stent, hypertension, stroke presented to the emergency department complaining of chest pain and SOB. Pain describe as Midsternal chest pain, cramping, 8-9 out of 10 in intensity, with radiation to the left shoulder, associated with shortness of breath, no nausea&vomiting, no alleviating or aggravating factors identified. There is mild bilateral leg swelling. Patient took nitroglycerin without improvement. Cardiology was consulted by Dr Peñaloza. There is EKG change from baseline but no ST elevation. Chest x-ray reports mild interstitial disease. Patient is being admitted for further evaluation and management. REVIEW OF SYSTEMS: GENERAL: no weight change, no fatigue, no fever HEAD: no head ache EYES: no blurry vision, no acute visual loss EARS: no hearing loss, no discharge, no earache NOSE: no stuffiness, no sneezing, no discharge MOUTH, THROAT AND NECK: no bleeding gums, no sore throat, no swollen neck CARDIAC: As stated in the HPI. RESPIRATORY: As stated in the HPI. GI: no decreased appetite, no dysphagia, no diarrhea, no constipation, no abdominal pain URINARY: no change in frequency, no urgency, no polyuria, no hematuria, no incontinence MUSCULOSKELETAL: no muscle weakness, no pain, no joint stiffness NEUROLOGIC: no loss of sensation/numbness, no tingling, no tremors, no weakness/paralysis HEMATOLOGIC: no anemia, no easy bruising SKIN: no rashes ENDOCRINE: no heat/cold intolerance, no polyuria, no polydipsia, no thyroid problems, no diabetes PSYCHIATRIC: no anxiety, no depression, no suicidal ideations Past History Past Medical History: CAD, heart failure, hypertension, stroke Past Surgical History: CABG Social history: full code. denies: smoking, alcohol abuse, prescription drug abuse, IV drug use Family history: no significant family history Medications and Allergies Allergies Allergy/AdvReac Type Severity Reaction Status Date / Time hydrocodone Allergy Unknown Unknown Verified 05/29/19 17:35 acetaminophen [From Percocet] Allergy Unknown Verified 05/29/19 17:33 Iodinated Contrast- Oral and Allergy Itching Verified 05/28/19 07:37 IV Dye [Iodinated Contrast Media - IV Dye] oxycodone [From Percocet] Allergy Unknown Verified 05/29/19 17:33 Home Medications Medication Instructions Recorded Confirmed Last Taken Type Aspirin [Aspirin BABY CHEW TAB] 81 mg PO QDAY #30 tab.chew 10/04/18 07/20/19 07/19/19 Rx Carvedilol [Coreg] 25 mg PO DAILY #30 tablet 10/04/18 07/20/19 07/19/19 Rx Clopidogrel [Plavix] 75 mg PO QDAY #30 tablet 10/04/18 07/20/19 07/19/19 Rx Losartan [Cozaar] 25 mg PO QDAY #30 tablet 10/04/18 07/20/19 07/19/19 Rx Ranolazine ER [Ranexa ER] 1,000 mg PO BID #60 tablet 10/04/18 07/20/19 07/19/19 Rx Temazepam 30 mg PO QHS #30 capsule 10/04/18 07/20/19 07/19/19 Rx amLODIPine [Norvasc] 10 mg PO QDAY #30 tablet 10/04/18 07/20/19 07/19/19 Rx hydrALAZINE [Apresoline TAB] 25 mg PO TID #90 tablet 10/04/18 07/20/19 07/19/19 Rx ISOSORBIDE MONOnitrate [Imdur ER] 60 mg PO BID 05/28/19 07/20/19 07/19/19 History Lisinopril [Zestril TAB] 5 mg PO QDAY 05/28/19 07/20/19 07/19/19 History Potassium Chloride [K-Dur] 10 meq PO QDAY 05/28/19 07/20/19 07/19/19 History Ranitidine HCl [Zantac] 300 mg PO BID 05/28/19 07/20/19 07/19/19 History Torsemide [Demadex] 40 mg PO BID 05/28/19 07/20/19 07/19/19 History risperiDONE [RisperDAL] 0.5 mg PO BID 05/28/19 07/20/19 07/19/19 History AtorvaSTATin [Lipitor] 80 mg PO QHS tablet 05/30/19 07/20/19 07/19/19 Rx Nitroglycerin [Nitrostat] 0.4 mg SL .Q5MIN PRN #60 tab 05/30/19 07/20/19 9 Rx Active Meds: Active Medications Nitroglycerin (Nitrostat) 0.4 mg SL .Q5MIN PRN PRN Reason: Chest Pain Last Admin: 07/20/19 10:50 Dose: 0.4 mg Documented by: Exam - Constitutional Vitals: Temp Pulse Resp BP Pulse Ox 98.2 F 85 13 164/85 96 07/20/19 09:54 07/20/19 10:50 07/20/19 09:54 07/20/19 10:50 07/20/19 09:54 General appearance: Present: no acute distress, well-nourished - EENT Eyes: Present: PERRL ENT: hearing intact, clear oral mucosa - Neck Neck: Present: supple, normal ROM - Respiratory Respiratory effort: normal Respiratory: bilateral: CTA - Cardiovascular Heart Sounds: Present: S1 & S2. Absent: rub, click - Extremities Extremities: pulses symmetrical, No edema Peripheral Pulses: within normal limits - Abdominal General gastrointestinal: Present: soft, non-tender, non-distended, normal bowel sounds - Integumentary Integumentary: Present: clear, warm, dry - Musculoskeletal Musculoskeletal: gait normal, strength equal bilaterally - Psychiatric Psychiatric: appropriate mood/affect, intact judgment & insight - Neurologic Neurologic: CNII-XII intact, moves all extremities Results - Labs CBC & Chem 7: 07/20/19 09:07 07/20/19 09:07 Labs: Abnormal lab results 07/20/19 07/20/19 07/20/19 Range/Units 09:07 09:07 10:14 MCV 100 H (84-94) fl MCH 34 H (28-32) pg MCHC 35 H (32-34) % Seg Neutrophils % 77.6 H (40.0-70.0) % APTT 24.1 L (24.2-36.6) Sec. Glucose 132 H (75-100) mg/dL - Imaging and Cardiology Chest x-ray: report reviewed Assessment and Plan Chest pain in a setting of CAD, status post CABG and stents - Resume his home medications - Pain control with NTG prn, imdur and ranexa - Troponin negative, we will do 2 more sets, there is EKG change but no STEMI - We'll follow cardiology recommendations Hypertension - Will resume home medications Acute exacerbation of CHFrEF 40-45% - cont home meds with gentle diuresis, BB and ACEI History of CVA - Resume home meds DVT prophylaxis - Heparin Disposition; admit to telemetry floor. Follow cardiology recommendations
[2019-07-20 11:27] LABS: Platelet Count 131 K/mm3 (140-440)
--- NOTE | 2019-07-20 12:25 | Consultation ---
History of Present Illness Consult date: 07/20/19 Consult reason: chest pain History of present illness: Patient is a 64-year old male with a history of complex coronary artery disease, including a remote coronary bypass, transmyocardial laser revascularization surgery done via a lateral thoracic wall incision in 2014 at [facility], followed by multiple cardiac catheterizations and angioplasty procedures. His latest cardiac workup was done in March at [facility]. A cardiac cath reports patent JARRELL to LAD, patent SVG to the Ramus and chronically occluded SVG to the RCA with faint collaterals from left to right. An echocardiogram reports a mildly decreased LVEF 40-45%. Patient is on medical management with Isosorbide, Ranexa and Nitro-Dur patch for small vessel disease and chronic stable angina. Patient presents to the emergency department with recurrent chest pain and shortness of breath, admitted for cardiac evaluation. Patient reports he woke with shortness of breath associated with palpitations. Chest x-ray reports mild interstitial disease. ECG is sinus rhythm, LVH with repolarization abnormalities, unchanged from prior ECG. Patient reports he is feeling better since his initial treatment in the emergency department. Medications and Allergies Allergies Allergy/AdvReac Type Severity Reaction Status Date / Time hydrocodone Allergy Unknown Unknown Verified 05/29/19 17:35 acetaminophen [From Percocet] Allergy Unknown Verified 05/29/19 17:33 Iodinated Contrast- Oral and Allergy Itching Verified 05/28/19 07:37 IV Dye [Iodinated Contrast Media - IV Dye] oxycodone [From Percocet] Allergy Unknown Verified 05/29/19 17:33 Home Medications Medication Instructions Recorded Confirmed Last Taken Type Aspirin [Aspirin BABY CHEW TAB] 81 mg PO QDAY #30 tab.chew 10/04/18 07/20/19 07/19/19 Rx Carvedilol [Coreg] 25 mg PO DAILY #30 tablet 10/04/18 07/20/19 07/19/19 Rx Clopidogrel [Plavix] 75 mg PO QDAY #30 tablet 10/04/18 07/20/19 07/19/19 Rx Losartan [Cozaar] 25 mg PO QDAY #30 tablet 10/04/18 07/20/19 07/19/19 Rx Ranolazine ER [Ranexa ER] 1,000 mg PO BID #60 tablet 10/04/18 07/20/19 07/19/19 Rx Temazepam 30 mg PO QHS #30 capsule 10/04/18 07/20/19 07/19/19 Rx amLODIPine [Norvasc] 10 mg PO QDAY #30 tablet 10/04/18 07/20/19 07/19/19 Rx hydrALAZINE [Apresoline TAB] 25 mg PO TID #90 tablet 10/04/18 07/20/19 07/19/19 Rx ISOSORBIDE MONOnitrate [Imdur ER] 60 mg PO BID 05/28/19 07/20/19 07/19/19 History Lisinopril [Zestril TAB] 5 mg PO QDAY 05/28/19 07/20/19 07/19/19 History Potassium Chloride [K-Dur] 10 meq PO QDAY 05/28/19 07/20/19 07/19/19 History Ranitidine HCl [Zantac] 300 mg PO BID 05/28/19 07/20/19 07/19/19 History Torsemide [Demadex] 40 mg PO BID 05/28/19 07/20/19 07/19/19 History risperiDONE [RisperDAL] 0.5 mg PO BID 05/28/19 07/20/19 07/19/19 History AtorvaSTATin [Lipitor] 80 mg PO QHS tablet 05/30/19 07/20/19 07/19/19 Rx Nitroglycerin [Nitrostat] 0.4 mg SL .Q5MIN PRN #60 tab 05/30/19 07/20/19 07/19/19 Rx Active Meds: Active Medications Nitroglycerin (Nitrostat) 0.4 mg SL .Q5MIN PRN PRN Reason: Chest Pain Last Admin: 07/20/19 10:50 Dose: 0.4 mg Documented by: Physical Examination Vital Signs Temp Pulse Resp BP Pulse Ox 98.1 F 77 18 184/99 98 07/20/19 09:00 07/20/19 09:00 07/20/19 09:00 07/20/19 09:00 07/20/19 09:00 General appearance: no acute distress HEENT: Positive: PERRL Neck: Positive: trachea midline Cardiac: Positive: Reg Rate and Rhythm Lungs: Positive: Decreased Breath Sounds Neuro: Positive: Grossly Intact Results 07/20/19 09:07 07/20/19 09:07 Coagulation 07/20/19 Range/Units 10:14 PT 13.6 (12.2-14.9) Sec. INR 1.07 (0.87-1.13) APTT 24.1 L (24.2-36.6) Sec. CBC 07/20/19 Range/Units 09:07 WBC 8.1 (4.5-11.0) K/mm3 RBC 4.14 (3.65-5.03) M/mm3 Hgb 14.3 (11.8-15.2) gm/dl Hct 41.2 (35.5-45.6) % Plt Count 131 L (140-440) K/mm3 Lymph # 1.2 (1.2-5.4) K/mm3 [place] # 0.4 (0.0-0.8) K/mm3 Eos # 0.1 (0.0-0.4) K/mm3 Baso # 0.1 (0.0-0.1) K/mm3 Comprehensive Metabolic Panel 07/20/19 Range/Units 09:07 Sodium 140 (137-145) mmol/L Potassium 3.9 (3.6-5.0) mmol/L Chloride 104.4 (98-107) mmol/L Carbon Dioxide 23 (22-30) mmol/L BUN 13 (9-20) mg/dL Creatinine 1.0 (0.8-1.5) mg/dL Glucose 132 H (75-100) mg/dL Calcium 9.4 (8.4-10.2) mg/dL Assessment and Plan Systolic heart failure Chronic stable angina patient is on medical management with Isosorbide, Ranexa and Nitro-Dur patch as an outpatient Essential hypertension Hyperlipidemia History of CVA CAD prior 3 way CABG in 1995 [facility] 03/2019 that reports patent JARRELL to LAD, patent SVG to the Ramus and chronically occluded SVG to the RCA with faint collaterals from left to right. s/p transmyocardial laser revascularization (TMR) done at [facility] in 2014. Ischemic Cardiomyopathy echocardiogram done 03/2019 reports a mildly decreased LVEF 40-45%.
[2019-07-20] MEDS: PEPCID PO SCH (21:56)
[2019-07-20] MEDS: RisperDAL PO SCH (21:56)
[2019-07-20] MEDS: IMDUR PO SCH (21:56)
[2019-07-20] MEDS: DEMADEX PO SCH (21:58)
[2019-07-20] MEDS: RANEXA ER PO SCH (21:58)
[2019-07-20] MEDS ORDERED: RESTORIL PO SCH (22:00)
[2019-07-21] MEDS ORDERED: APRESOLINE PO SCH (08:00)
[2019-07-21] MEDS: RANEXA ER PO SCH (09:46)
[2019-07-21] MEDS: IMDUR PO SCH (09:46)
[2019-07-21] MEDS: DEMADEX PO SCH (09:47)
[2019-07-21] MEDS: PEPCID PO SCH (09:48)
[2019-07-21] MEDS: RisperDAL PO SCH (09:50)
[2019-07-21 09:51] VITALS: BP 160/78
[2019-07-21] MEDS ORDERED: PLAVIX PO SCH (10:00)
[2019-07-21] MEDS ORDERED: NORVASC PO SCH (10:00)
[2019-07-21] MEDS ORDERED: COREG PO SCH (10:00)
[2019-07-21] MEDS ORDERED: BABY ASPIRIN PO SCH (10:00)
[2019-07-21] MEDS ORDERED: K-DUR PO SCH (10:00)
[2019-07-21] MEDS ORDERED: ZESTRIL PO SCH (10:00)
--- NOTE | 2019-07-21 10:05 | Progress Note ---
Assessment and Plan Systolic heart failure Chronic stable angina patient is on medical management with Isosorbide, Ranexa and Nitro-Dur patch as an outpatient Essential hypertension - maximize medical therapy as blood pressure allows Hyperlipidemia - high intensity statin History of CVA - ASA and high intesnity statin. CAD prior 3 way CABG in 1995 [facility] 03/2019 that reports patent JARRELL to LAD, patent SVG to the Ramus and chronically occluded SVG to the RCA with faint collaterals from left to right. s/p transmyocardial laser revascularization (TMR) done at [facility] in 2014. patient has a long history of small vessel disease and is a poor candidate for further intervention Continue medical therapy with ASA, BB, statin, isosorbide, and ranexa Ischemic Cardiomyopathy echocardiogram done 03/2019 reports a mildly decreased LVEF 40-45%. maximize BB as blood pressure allows Subjective Date of service: 07/21/19 Interval history: No acute events. Resting comfortably. no chest pain or SOB. Objective Vital Signs Temp Pulse Resp BP BP Pulse Ox 07/21/19 09:48 75 160/78 07/21/19 09:47 77 160/78 07/21/19 09:46 77 160/78 07/21/19 08:07 71 164/95 07/21/19 08:06 71 18 164/95 97 07/21/19 07:36 98.5 F 75 18 172/102 96 07/21/19 04:21 98.5 F 76 20 161/87 97 07/21/19 03:28 75 07/21/19 00:27 84 93 07/20/19 23:30 98.6 F 20 153/74 07/20/19 21:56 78 173/85 07/20/19 20:25 98.1 F 74 20 173/85 95 07/20/19 19:44 77 07/20/19 16:46 97.8 F 74 20 165/87 99 07/20/19 12:14 18 07/20/19 12:00 86 13 164/85 97 07/20/19 10:51 72 13 164/85 96 07/20/19 10:50 85 164/85 07/20/19 10:41 74 16 164/85 95 07/20/19 10:31 83 13 164/85 97 07/20/19 10:21 75 14 164/85 95 07/20/19 10:11 75 14 164/85 96 - Physical Examination HEENT: Positive: PERRL Neck: Positive: trachea midline Neuro: Positive: Grossly Intact - Labs and Meds Coagulation 07/20/19 Range/Units 10:14 PT 13.6 (12.2-14.9) Sec. INR 1.07 (0.87-1.13) APTT 24.1 L (24.2-36.6) Sec. CBC 07/20/19 Range/Units 09:07 Plt Count 131 L (140-440) K/mm3
--- NOTE | 2019-07-21 17:19 | Discharge Summary ---
Providers - Providers Date of Admission: 07/20/19 10:26 Date of discharge: 07/21/19 Attending physician: JANICE LEBLANC 07/20/19 10:10 Consult to Physician [CONS] Urgent Comment: Consulting Provider: SALONI CHARLTON Physician Instructions: Reason For Exam: ischemic chest pain Primary care physician: JULIAN DENIS Hospitalization Condition: Good Hospital course: Discharge diagnosis: Chest pain in a setting of small vessel CAD, status post CABG and stents - Resumed his home medications - Pain control with NTG prn, imdur and ranexa - Troponin negative, there is EKG change but no STEMI - medical Mx per cardiology recommendations and outpt followup Hypertension - Resumed home medications Acute exacerbation of CHFrEF 40-45% - cont home meds with gentle diuresis, BB and ACEI History of CVA - Resumed home meds DVT prophylaxis - Heparin Disposition: DC-01 TO HOME OR SELFCARE Time spent for discharge: 34 minutes Core Measure Documentation - Palliative Care Palliative Care/ Comfort Measures: Not Applicable - Core Measures Any of the following diagnoses?: none Exam - Constitutional Vitals: Temp Pulse Resp BP Pulse Ox 98.5 F 75 18 160/78 97 07/21/19 07:36 07/21/19 09:48 07/21/19 10:00 07/21/19 09:48 07/21/19 08:06 General appearance: Present: no acute distress, well-nourished - EENT Eyes: Present: PERRL ENT: hearing intact, clear oral mucosa - Neck Neck: Present: supple, normal ROM - Respiratory Respiratory effort: normal Respiratory: bilateral: CTA - Cardiovascular Heart Sounds: Present: S1 & S2. Absent: rub, click - Extremities Extremities: pulses symmetrical, No edema Peripheral Pulses: within normal limits - Abdominal General gastrointestinal: Present: soft, non-tender, non-distended, normal bowel sounds - Integumentary Integumentary: Present: clear, warm, dry - Musculoskeletal Musculoskeletal: gait normal, strength equal bilaterally - Psychiatric Psychiatric: appropriate mood/affect, intact judgment & insight - Neurologic Neurologic: CNII-XII intact, moves all extremities Plan Activity: advance as tolerated Weight Bearing Status: Weight Bear as Tolerated Diet: low fat, low salt Follow up with: KAREEM LARSON MD [Referring] - 3-5 Days TAMMY DAI MD [Staff Physician] - 7 Days Prescriptions: Nitroglycerin [Nitrostat] 0.4 mg SL .Q5MIN PRN #60 tab PRN Reason: Chest Pain Ranolazine ER [Ranexa ER] 1,000 mg PO BID #60 tablet
== END 2019-07-21 12:46 | disposition home or self-care (01) ==
LOC: ED 08:49 → 4A 10:26
PROVIDERS: ADMIT Internal Medicine; ATTEND Internal Medicine
DX: R07.89 Other chest pain (principal); I11.0 Hypertensive heart disease with heart failure; I50.9 Heart failure, unspecified; Z86.73 Personal history of transient ischemic attack (TIA), and cerebral infarction without residual deficits
CPT/HCPCS: 36415; 71045; 80048; 82550; 83735; 83880; 84484; 85025; 85610; 85730; 93005; 93010; 96374; 96376; 99291; A9270; G0378; J1940; J2270

== ENCOUNTER 2020-06-03 02:03 | Emergency (ER) | payer MEDICARE ==
--- NOTE | 2020-06-03 03:39 | XRay Report ---
CHEST 1 VIEW 06/03/2020 3:03 AM INDICATION / CLINICAL INFORMATION: Chest Pain. COMPARISON: 12/05/2019 FINDINGS: SUPPORT DEVICES: None. HEART / MEDIASTINUM: Sternotomy, CABG and mild cardiomegaly again noted. LUNGS / PLEURA: No significant pulmonary or pleural abnormality. No pneumothorax. ADDITIONAL FINDINGS: No significant additional findings. IMPRESSION: 1. Stable cardiomegaly without CHF Signer Name: Jalil Urbano MD Signed: 06/03/2020 3:34 AM Workstation Name: [id number]
[2020-06-03 03:47] LABS: Basophils % (Auto) 0.7 % (0.0-1.8); Eosinophils # (Auto) 0.1 K/mm3 (0.0-0.4); Hematocrit 39.4 % (35.5-45.6); Hemoglobin 13.2 gm/dl (11.8-15.2); Lymphocytes # (Auto) 1.1 K/mm3 (1.2-5.4); Lymphocytes % (Auto) 20.1 % (13.4-35.0); Mean Corpuscular HGB Conc 33 % (32-34); Mean Corpuscular Volume 101 fl (84-94); Monocytes # (Auto) 0.3 K/mm3 (0.0-0.8); Monocytes % (Auto) 6.1 % (0.0-7.3); Platelet Count 118 K/mm3 (140-440); Red Blood Count 3.92 M/mm3 (3.65-5.03); Red Cell Distribution Width 13.4 % (13.2-15.2)
[2020-06-03 04:01] LABS: BUN/Creatinine Ratio 16; Blood Urea Nitrogen 14 mg/dL (9-20); Calcium 9.1 mg/dL (8.4-10.2); Hemolysis Index 7
--- NOTE | 2020-06-03 06:44 | Emergency Department Report ---
ED Chest Pain HPI - General Chief Complaint: Chest Pain Stated Complaint: CHEST PAIN Time Seen by Provider: 06/03/20 06:41 Source: patient Mode of arrival: Ambulatory Limitations: No Limitations - History of Present Illness Initial Comments: This is a 65-year-old gentleman who tells the nurse that he wanted to leave without being seen prior to my arrival. He did stay ultimately for me to see and evaluate him. He has been apparently stable in the emergency department. I did note that he was walking around in no distress prior to my opportunity to e xamine him. The patient has had multiple admissions to multiple facilities. 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 as well as his cardiology clinic at the [facility]. He states that 2 days ago he called the [facility] and was instructed to come to their facility. However due to the driving distance he ultimately decided to come here last night. He states that he has been using multiple nitroglycerin with limited benefit. His last 1 was at about 3 AM last night in the waiting room. He states that he has a chest pain that is sharp/tight in his anterior chest and sometimes radiating to his left shoulder. He usually does not have associated symptoms but yesterday once he felt short of breath. He is not dyspneic at rest. The pain is not pleuritic. He has had no leg pain and no recent travel. Patient does have an extensive history of coronary artery disease. He tells me his last admission was to [place] in March. There was no intervention at that time. He was also admitted here in November 2019 without intervention here. His left heart cath showed no addressable abnormality in 2018. As above he is also been seen and admitted at the [facility] I believe several times. At the time of my encounter the patient is asymptomatic. Last discharge summary in November 2019: Hospital course: 64-year-old male with known history of coronary artery disease status post CABG and stent placement in the past, hypertension and CHF presenting [facility] the [facility] room today complaining of chest discomfort and shortness of breath. He took some sublingual nitroglycerin without any significant improvement. Shortness of breath is said to be worse on exertion. Patient gets his medications from the [facility] and indicates that he has not been able to get his diuretic filled. He has been out of his diuretic for about 5 to 6 days. Patient was admitted,mnaged ith chf medications,evaluated by cardiology and meds were optimised. Symptoms improved.Cleared by cardiology Stable at discharge. Discharge Diagnosis: --Acute on chronic systolic congestive heart failure IV diuretics were, beta blockers, shaila inhibitors. Will monitor daily weights, strict input and output. Low-sodium diet , water restriction cardiology following Ef 30-35% on 2017, 40-45% in 03/2019 --HTN (hypertension), benign Continue Current antihypertensives and when necessary medications --Unstable angina We will check serial cardiac enzymes. Audiology following Medical management --Hyperlipidemia , on statin --History of CVA, cont aspirin, statin --CAD prior 3 way CABG in 1995 aspirin, statin, BB, ACEI --DVT prophylaxis Patient placed on subcutaneous heparin. --Full code status. MD Complaint: chest pain -: days(s) Onset: during rest Pain Location: substernal Pain Radiation: none (Usually not sometimes to the left shoulder) Severity: moderate Quality: tightness, sharp Consistency: intermittent, now resolved Improves With: nitroglycerin (States took no multiple nitroglycerin which largely does not help) Worsens With: nothing Context: other (Ischemic cardiomyopathy) re: dyspnea (Occasionally) Other Symptoms: denies: cough, fever, syncope Treatments Prior to Arrival: nitroglycerin - Related Data Home Medications Medication Instructions Recorded Confirmed Last Taken ISOSORBIDE MONOnitrate [Imdur ER] 60 mg PO BID 05/28/19 12/08/19 07/19/19 Potassium Chloride [K-Dur] 10 meq PO QDAY 05/28/19 12/08/19 07/19/19 lisinopriL [Zestril TAB] 5 mg PO QDAY 05/28/19 12/08/19 07/19/19 raNITIdine HCl [Zantac] 300 mg PO BID 05/28/19 12/08/19 07/19/19 risperiDONE [RisperDAL] 0.5 mg PO BID 05/28/19 12/08/19 07/19/19 Previous Rx's Medication Instructions Recorded Last Taken Type Aspirin [Aspirin BABY CHEW TAB] 81 mg PO QDAY #30 tab.chew 10/04/18 07/19/19 Rx Clopidogrel [Plavix] 75 mg PO QDAY #30 tablet 10/04/18 07/19/19 Rx amLODIPine 10 mg PO QDAY #30 tablet 10/04/18 07/19/19 Rx carvediloL [Coreg] 25 mg PO DAILY #30 tablet 10/04/18 07/19/19 Rx hydrALAZINE [Apresoline TAB] 25 mg PO TID #90 tablet 10/04/18 07/19/19 Rx AtorvaSTATin [Lipitor] 80 mg PO QHS tablet 05/30/19 07/19/19 Rx Nitroglycerin [Nitrostat] 0.4 mg SL .Q5MIN PRN #60 tab 12/08/19 Unknown Rx Ranolazine ER [Ranexa ER] 1,000 mg PO BID #60 tablet 12/08/19 Unknown Rx Temazepam 30 mg PO QHS #7 capsule 12/08/19 Unknown Rx Torsemide [Demadex] 40 mg PO BID #60 12/08/19 Unknown Rx Allergies Allergy/AdvReac Type Severity Reaction Status Date / Time hydrocodone Allergy Unknown Unknown Verified 05/29/19 17:35 acetaminophen [From Percocet] Allergy Unknown Verified 05/29/19 17:33 Iodinated Contrast Media Allergy Itching Verified 05/28/19 07:37 [Iodinated Contrast Media - IV Dye] oxycodone [From Percocet] Allergy Unknown Verified 05/29/19 17:33 Heart Score - HEART Score History: Slightly suspicious EKG: Non-specific Age: > 65 Risk factors: > 3 risk factors or hx of atherosclerotic disease Troponin: < normal limit HEART Score: 5 - Critical Actions Critical Actions: 4-6 pts:12-16.6% risk of adverse cardiac event. Should be admitted ED Review of Systems ROS: Stated complaint: CHEST PAIN Other details as noted in HPI Constitutional: denies: chills, fever Eyes: denies: eye pain, eye discharge, vision change ENT: denies: ear pain, throat pain Respiratory: shortness of breath (Occasionally). denies: cough, wheezing Cardiovascular: as per HPI, chest pain. denies: palpitations Endocrine: no symptoms reported Gastrointestinal: denies: abdominal pain, nausea, diarrhea Genitourinary: denies: urgency, dysuria Musculoskeletal: denies: back pain, joint swelling, arthralgia Skin: denies: rash, lesions Neurological: denies: headache, weakness, paresthesias Psychiatric: denies: anxiety, depression Hematological/Lymphatic: denies: easy bleeding, easy bruising ED Past Medical Hx - Past Medical History Previous Medical History?: Yes Hx Hypertension: Yes Hx CVA: Yes Hx Heart Attack/AMI: Yes (x4) Hx Congestive Heart Failure: Yes Hx Diabetes: No Hx Deep Vein Thrombosis: No Hx Pulmonary Embolism: No Hx Liver Disease: No Hx Sickle Cell Disease: No Hx Arthritis: No Hx Seizures: No Hx Kidney Stones: No Hx Asthma: No Hx COPD: No Hx Tuberculosis: No Hx Dementia: No Hx HIV: No Additional medical history: high cholesterol. 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 - Social History Smoking Status: Former Smoker Substance Use Type: None - Medications Home Medications: Home Medications Medication Instructions Recorded Confirmed Last Taken Type Aspirin [Aspirin BABY CHEW TAB] 81 mg PO QDAY #30 tab.chew 10/04/18 12/08/19 07/19/19 Rx Clopidogrel [Plavix] 75 mg PO QDAY #30 tablet 10/04/18 12/08/19 07/19/19 Rx amLODIPine 10 mg PO QDAY #30 tablet 10/04/18 12/08/19 07/19/19 Rx carvediloL [Coreg] 25 mg PO DAILY #30 tablet 10/04/18 12/08/19 07/19/19 Rx hydrALAZINE [Apresoline TAB] 25 mg PO TID #90 tablet 10/04/18 12/08/19 07/19/19 Rx ISOSORBIDE MONOnitrate [Imdur ER] 60 mg PO BID 05/28/19 12/08/19 07/19/19 History Potassium Chloride [K-Dur] 10 meq PO QDAY 05/28/19 12/08/19 07/19/19 History lisinopriL [Zestril TAB] 5 mg PO QDAY 05/28/19 12/08/19 07/19/19 History raNITIdine HCl [Zantac] 300 mg PO BID 05/28/19 12/08/19 07/19/19 History risperiDONE [RisperDAL] 0.5 mg PO BID 05/28/19 12/08/19 07/19/19 History AtorvaSTATin [Lipitor] 80 mg PO QHS tablet 05/30/19 12/08/19 07/19/19 Rx Nitroglycerin [Nitrostat] 0.4 mg SL .Q5MIN PRN #60 tab 12/08/19 Unknown Rx Ranolazine ER [Ranexa ER] 1,000 mg PO BID #60 tablet 12/08/19 Unknown Rx Temazepam 30 mg PO QHS #7 capsule 12/08/19 Unknown Rx Torsemide [Demadex] 40 mg PO BID #60 12/08/19 Unknown Rx ED Physical Exam - General Limitations: No Limitations General appearance: alert, in no apparent distress - Head Head exam: Present: atraumatic, normocephalic - Eye Eye exam: Present: normal appearance. Absent: scleral icterus - ENT ENT exam: Present: mucous membranes moist - Neck Neck exam: Present: normal inspection - Respiratory Respiratory exam: Present: normal lung sounds bilaterally. Absent: respiratory distress - Cardiovascular Cardiovascular Exam: Present: regular rate, normal rhythm. Absent: systolic murmur, diastolic murmur, rubs, gallop - GI/Abdominal GI/Abdominal exam: Present: soft, normal bowel sounds. Absent: distended, tend erness, guarding, rebound - Rectal Rectal exam: Present: deferred - Extremities Exam Extremities exam: Present: other (Patient has bilateral pretibial edema. His right calf is a bit larger than his left calf. He is status post saphenous vein harvest.) - Back Exam Back exam: Present: normal inspection - Neurological Exam Neurological exam: Present: alert, oriented X3, CN II-XII intact. Absent: motor sensory deficit - Psychiatric Psychiatric exam: Present: normal affect, normal mood - Skin Skin exam: Present: warm, dry, intact, normal color. Absent: rash ED Course Vital Signs 06/03/20 02:21 Temperature 98.3 F Pulse Rate 77 Respiratory 20 Rate Blood Pressure 159/82 O2 Sat by Pulse 99 Oximetry - Reevaluation(s) Reevaluation #1: I have explained in detail to this patient that we do recommend admission for chest pain or further evaluation. He does not want to stay. He understands the risks which we have discussed to include and other complications. He has full mental capacity. He states that he will come back to the hospital if he has any recurrent chest pain. He basically states that he wanted to know that his troponins were normal. He did have 2- troponins. 06/03/20 07:33 SHAWN score - Shawn Score Age > 65: (0) No Aspirin use within the Past 7 Days: (1) Yes 3 or more CAD Risk Factors: (1) Yes 2 or more Angina events in past 24 hrs: (1) Yes Known CAD with more than 50% Stenosis: (1) Yes (as per catheterization report 2013, patient had severe disease.) Elevated Cardiac Markers: (1) Yes ST Deviation Greater than 0.5mm: (0) No SHAWN Score: 5 ED Medical Decision Making - Lab Data Result diagrams: 06/03/20 03:12 06/03/20 03:12 Laboratory Results - last 24 hr 06/03/20 06/03/20 06/03/20 03:12 03:12 05:42 WBC 5.6 RBC 3.92 Hgb 13.2 Hct 39.4 MCV 101 H MCH 34 H MCHC 33 RDW 13.4 Plt Count 118 L Lymph % (Auto) 20.1 [place] % (Auto) 6.1 Eos % (Auto) 2.0 Baso % (Auto) 0.7 Lymph # 1.1 L [place] # 0.3 Eos # 0.1 Baso # 0.0 Seg Neutrophils % 71.1 H Seg Neutrophils # 4.0 Sodium 142 Potassium 3.7 Chloride 105.8 Carbon Dioxide 25 Anion Gap 15 BUN 14 Creatinine 0.9 Estimated GFR > 60 BUN/Creatinine Ratio 16 Glucose 106 H Calcium 9.1 Troponin T < 0.010 < 0.010 - EKG Data EKG shows normal: sinus rhythm Rate: normal - EKG Data When compared to previous EKG there are: no significant change Interpretation: other (Incomplete left bundle branch block. Repolarization abnormalities are improved compared to prior EKG) - Radiology Data Radiology results: report reviewed (CABG, cardiomegaly, no decompensation.) Critical care attestation.: If time is entered above; I have spent that time in minutes in the direct care of this critically ill patient, excluding procedure time. ED Disposition Clinical Impression: History of PTCA CAD (coronary artery disease) Qualifiers: Coronary Disease-Associated Artery/Lesion type: bypass graft [place] vs. transplanted heart: [place] heart Associated angina: with unstable angina Qualified Code(s): I25.700 - Atherosclerosis of coronary artery bypass graft(s), unspecified, with unstable angina pectoris Chest pain Qualifiers: Chest pain type: unspecified Qualified Code(s): R07.9 - Chest pain, unspecified Disposition: - TO HOME OR SELFCARE Is pt being admited?: No Does the pt Need Aspirin: Yes Condition: Stable Instructions: Chest Pain (ED) Additional Instructions: We have been recommended that you be admitted to the hospital for further care and evaluation. The reason for your chest pain is yet unknown. This could include life-threatening illness. You have communicated to me that you do understand this and declined admission. Return to the emergency department should you desire further evaluation. Referrals: CASPER SOTO MD [Primary Care Provider] - 3-5 Days Usual, [place] cardiology [Other] - [facility] Time of Disposition: 07:36
[2020-06-03] MEDS ORDERED: ASPIRIN 325 MG TAB PO ONE (07:37)
[2020-06-03 08:04] VITALS: BP 170/82
== END 2020-06-03 08:00 | disposition home or self-care (01) ==
LOC: ED 02:03
DX: I25.10 Atherosclerotic heart disease of native coronary artery without angina pectoris (principal); Z98.61 Coronary angioplasty status; I11.0 Hypertensive heart disease with heart failure; I50.9 Heart failure, unspecified; Z86.73 Personal history of transient ischemic attack (TIA), and cerebral infarction without residual deficits; Z87.891 Personal history of nicotine dependence; Z79.82 Long term (current) use of aspirin; Z79.899 Other long term (current) drug therapy; Z88.4 Allergy status to anesthetic agent; Z88.8 Allergy status to other drugs, medicaments and biological substances
CPT/HCPCS: 36415; 71045; 80048; 84484; 85025

== ENCOUNTER 2020-12-22 15:24 | Emergency (ER) | payer MEDICARE ==
--- NOTE | 2020-12-22 15:41 | Event Note ---
ED Screening Note Date of service: 12/22/20 Time: 15:40 ED Screening Note: Pt c/o chest pain and tightness x 5 am hx of CHF, HTN, IL, CVA This initial assessment/diagnostic orders/clinical plan/treatment(s) is/are subject to change based on patients health status, clinical progression and re- assessment by fellow clinical providers in the ED. Further treatment and workup at subsequent clinical providers discretion. Patient/guardian urged not to elope from the ED as their condition may be serious if not clinically assessed and managed. Initial orders include: labs CXR ekg
[2020-12-22 16:11] LABS: Basophils % (Auto) 0.6 % (0.0-1.8); Eosinophils # (Auto) 0.1 K/mm3 (0.0-0.4); Eosinophils % (Auto) 1.1 % (0.0-4.3); Hematocrit 37.8 % (35.5-45.6); Hemoglobin 12.4 gm/dl (11.8-15.2); Lymphocytes # (Auto) 0.9 K/mm3 (1.2-5.4); Lymphocytes % (Auto) 17.2 % (13.4-35.0); Mean Corpuscular HGB Conc 33 % (32-34); Mean Corpuscular Volume 98 fl (84-94); Monocytes # (Auto) 0.5 K/mm3 (0.0-0.8); Monocytes % (Auto) 9.1 % (0.0-7.3); Platelet Count 115 K/mm3 (140-440); Red Blood Count 3.87 M/mm3 (3.65-5.03); Red Cell Distribution Width 14.3 % (13.2-15.2)
--- NOTE | 2020-12-22 16:28 | XRay Report ---
CHEST 2 VIEWS INDICATION / CLINICAL INFORMATION: chest pain. COMPARISON: 06/03/2020 FINDINGS: SUPPORT DEVICES: None. HEART / MEDIASTINUM: Stable postsurgical change from median sternotomy and probable CABG. LUNGS / PLEURA: No significant pulmonary or pleural abnormality. No pneumothorax. ADDITIONAL FINDINGS: No significant additional findings. IMPRESSION: 1. No acute findings. Signer Name: Joe Myers MD Signed: 12/22/2020 4:24 PM Workstation Name: [id number]
[2020-12-22 16:36] LABS: Alanine Aminotransferase 13 units/L (7-56); Albumin 4.1 g/dL (3.9-5); BUN/Creatinine Ratio 13; Blood Urea Nitrogen 14 mg/dL (9-20); Calcium 9.5 mg/dL (8.4-10.2); Hemolysis Index 3
[2020-12-22] MEDS ORDERED: FUROSEMIDE 40 MG/4 ML INJ IV ONE (16:38)
[2020-12-22] MEDS ORDERED: ONDANSETRON 4 MG/2 ML INJ IV ONE (16:38)
[2020-12-22] MEDS ORDERED: MORPHINE 4 MG/1 ML INJ IV ONE ×2 (16:38→19:01)
[2020-12-22] MEDS ORDERED: carvediloL 3.125 MG TAB PO ONE (16:39)
[2020-12-22] MEDS ORDERED: amLODIPine 5 MG TAB PO ONE (16:39)
[2020-12-22] MEDS ORDERED: LISINOPRIL 10 MG TAB PO ONE (16:39)
--- NOTE | 2020-12-22 17:16 | Emergency Department Report ---
ED Chest Pain HPI - General Chief Complaint: Chest Pain Stated Complaint: CHEST PAIN Time Seen by Provider: 12/22/20 15:36 Source: patient Mode of arrival: Ambulatory Limitations: No Limitations - History of Present Illness Initial Comments: Chief complaint: "I have been hurting.." History obtained from electronic medical record and patient HPI: This is a 65-year-old male with history of systolic heart failure EF 35%, hypertension, DVT, peripheral artery disease, hyperlipidemia, CVA, complex coronary artery disease status post triple vessel CABG, multiple cardiac stents, multiple cardiac catheterization and angioplasty procedures, transmyocardial laser vascular surgery in 2014, who presents with recurrent chest pain. Chest pain awakened patient from sleep this morning at 5 AM. Pain is pressure sensation. 8 out of 10 in severity. Patient required 7 doses of nitroglycerin. He had only minimal relief. Pain has been persistent since 5 AM this morning. Pain is currently 6 out of 10 in severity. No radiation of the pain. Pain has been persistent. No association with exertion inspiration or movement. Patient has had chronic leg swelling in both extremities. Patient has had evaluation and treatment at [facility] 6 to 7 months ago for left leg swelling and pain. The pain and swelling has been attributed to peripheral artery disease, DVT and fluid retention. Patient states that he is on anticoagulation therapy. He is unable to recall the name of his medication. Patient does take aspirin and Plavix. He took these 2 medications this morning. Mr. Suazo receives medical care at several hospitals including [facility], [facility], [facility], [facility]. Complaint: chest pain -: This morning Onset: during rest Pain Location: left chest Pain Radiation: none Severity: severe Severity scale (0 -10): 8 Quality: tightness, heaviness Consistency: constant Improves With: nitroglycerin (Minimal relief with nitroglycerin) Worsens With: nothing re: other (Chronic leg swelling) Treatments Prior to Arrival: other (Aspirin Plavix) - Related Data Home Medications Medication Instructions Recorded Confirmed Last Taken ISOSORBIDE MONOnitrate [Imdur ER] 60 mg PO BID 05/28/19 12/08/19 07/19/19 Potassium Chloride [K-Dur] 10 meq PO QDAY 05/28/19 12/08/19 07/19/19 lisinopriL [Zestril TAB] 5 mg PO QDAY 05/28/19 12/08/19 07/19/19 raNITIdine HCl [Zantac] 300 mg PO BID 05/28/19 12/08/19 07/19/19 risperiDONE [RisperDAL] 0.5 mg PO BID 05/28/19 12/08/19 07/19/19 Previous Rx's Medication Instructions Recorded Last Taken Type Aspirin [Aspirin BABY CHEW TAB] 81 mg PO QDAY #30 tab.chew 10/04/18 07/19/19 Rx Clopidogrel [Plavix] 75 mg PO QDAY #30 tablet 10/04/18 07/19/19 Rx amLODIPine 10 mg PO QDAY #30 tablet 10/04/18 07/19/19 Rx carvediloL [Coreg] 25 mg PO DAILY #30 tablet 10/04/18 07/19/19 Rx hydrALAZINE [Apresoline TAB] 25 mg PO TID #90 tablet 10/04/18 07/19/19 Rx AtorvaSTATin [Lipitor] 80 mg PO QHS tablet 05/30/19 07/19/19 Rx Nitroglycerin [Nitrostat] 0.4 mg SL .Q5MIN PRN #60 tab 12/08/19 Unknown Rx Ranolazine ER [Ranexa ER] 1,000 mg PO BID #60 tablet 12/08/19 Unknown Rx Temazepam 30 mg PO QHS #7 capsule 12/08/19 Unknown Rx Torsemide [Demadex] 40 mg PO BID #60 12/08/19 Unknown Rx Allergies Allergy/AdvReac Type Severity Reaction Status Date / Time hydrocodone Allergy Unknown Unknown Verified 05/29/19 17:35 acetaminophen [From Percocet] Allergy Unknown Verified 12/22/20 15:37 Iodinated Contrast Media Allergy Itching Verified 12/22/20 15:37 [Iodinated Contrast Media - IV Dye] oxycodone [From Percocet] Allergy Unknown Verified 12/22/20 15:37 Heart Score - HEART Score History: Slightly suspicious EKG: Non-specific Age: > 65 Risk factors: > 3 risk factors or hx of atherosclerotic disease Troponin: < normal limit HEART Score: 5 ED Review of Systems ROS: Stated complaint: CHEST PAIN Other details as noted in HPI Comment: All other systems reviewed and negative Constitutional: denies: fever, malaise Respiratory: denies: cough, shortness of breath Cardiovascular: chest pain Gastrointestinal: denies: abdominal pain, nausea, vomiting ED Past Medical Hx - Past Medical History Previous Medical History?: Yes Hx Hypertension: Yes Hx CVA: Yes Hx Heart Attack/AMI: Yes (x4) Hx Congestive Heart Failure: Yes Hx Diabetes: No Hx Deep Vein Thrombosis: No Hx Pulmonary Embolism: No Hx Liver Disease: No Hx Sickle Cell Disease: No Hx Arthritis: No Hx Seizures: No Hx Kidney Stones: No Hx Asthma: No Hx COPD: No Hx Tuberculosis: No Hx Dementia: No Hx HIV: No Additional medical history: high cholesterol. 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 - Social History Smoking Status: Former Smoker Substance Use Type: None - Medications Home Medications: Home Medications Medication Instructions Recorded Confirmed Last Taken Type Aspirin [Aspirin BABY CHEW TAB] 81 mg PO QDAY #30 tab.chew 10/04/18 12/08/19 07/19/19 Rx Clopidogrel [Plavix] 75 mg PO QDAY #30 tablet 10/04/18 12/08/19 07/19/19 Rx amLODIPine 10 mg PO QDAY #30 tablet 10/04/18 12/08/19 07/19/19 Rx carvediloL [Coreg] 25 mg PO DAILY #30 tablet 10/04/18 12/08/19 07/19/19 Rx hydrALAZINE [Apresoline TAB] 25 mg PO TID #90 tablet 10/04/18 12/08/19 07/19/19 Rx ISOSORBIDE MONOnitrate [Imdur ER] 60 mg PO BID 05/28/19 12/08/19 07/19/19 History Potassium Chloride [K-Dur] 10 meq PO QDAY 05/28/19 12/08/19 07/19/19 History lisinopriL [Zestril TAB] 5 mg PO QDAY 05/28/19 12/08/19 07/19/19 History raNITIdine HCl [Zantac] 300 mg PO BID 05/28/19 12/08/19 07/19/19 History risperiDONE [RisperDAL] 0.5 mg PO BID 05/28/19 12/08/19 07/19/19 History AtorvaSTATin [Lipitor] 80 mg PO QHS tablet 05/30/19 12/08/19 07/19/19 Rx Nitroglycerin [Nitrostat] 0.4 mg SL .Q5MIN PRN #60 tab 12/08/19 Unknown Rx Ranolazine ER [Ranexa ER] 1,000 mg PO BID #60 tablet 12/08/19 Unknown Rx Temazepam 30 mg PO QHS #7 capsule 12/08/19 Unknown Rx Torsemide [Demadex] 40 mg PO BID #60 12/08/19 Unknown Rx ED Physical Exam - General Limitations: No Limitations General appearance: alert, in no apparent distress, other (Pleasant talkative no acute distress) - Head Head exam: Present: atraumatic, normocephalic - Eye Eye exam: Present: normal appearance - ENT ENT exam: Present: mucous membranes moist - Neck Neck exam: Present: normal inspection, full ROM - Respiratory Respiratory exam: Present: normal lung sounds bilaterally. Absent: respiratory distress, wheezes, rales, rhonchi - Cardiovascular Cardiovascular Exam: Present: regular rate, normal rhythm, normal heart sounds. Absent: systolic murmur, diastolic murmur, rubs, gallop - GI/Abdominal GI/Abdominal exam: Present: soft, normal bowel sounds. Absent: distended, t enderness, guarding, rebound - Rectal Rectal exam: Present: deferred - Extremities Exam Extremities exam: Present: normal inspection - Neurological Exam Neurological exam: Present: alert, oriented X3 - Psychiatric Psychiatric exam: Present: normal affect, normal mood - Skin Skin exam: Present: warm, dry, intact, normal color. Absent: rash ED Course Vital Signs 12/22/20 12/22/20 12/22/20 15:42 17:00 17:15 Temperature 98.4 F Pulse Rate 90 91 H 84 Respiratory 20 22 Rate Blood Pressure 163/92 184/92 Blood Pressure 175/90 [Right] O2 Sat by Pulse 95 98 Oximetry 12/22/20 12/22/20 12/22/20 17:16 18:00 19:00 Temperature Pulse Rate 84 84 83 Respiratory 20 20 Rate Blood Pressure 184/92 Blood Pressure 157/73 164/84 [Right] O2 Sat by Pulse 96 96 Oximetry 12/22/20 19:20 Temperature Pulse Rate 83 Respiratory Rate Blood Pressure 164/84 Blood Pressure [Right] O2 Sat by Pulse Oximetry SHAWN score - Shawn Score Age > 65: (0) No Aspirin use within the Past 7 Days: (1) Yes 3 or more CAD Risk Factors: (1) Yes 2 or more Angina events in past 24 hrs: (1) Yes Known CAD with more than 50% Stenosis: (1) Yes (as per catheterization report 2013, patient had severe disease.) Elevated Cardiac Markers: (1) Yes ST Deviation Greater than 0.5mm: (0) No SHAWN Score: 5 ED Medical Decision Making - Lab Data Result diagrams: 12/22/20 15:55 12/22/20 15:55 Laboratory Results - last 24 hr 12/22/20 12/22/20 15:55 15:55 WBC 5.3 RBC 3.87 Hgb 12.4 Hct 37.8 MCV 98 H MCH 32 MCHC 33 RDW 14.3 Plt Count 115 L Lymph % (Auto) 17.2 [place] % (Auto) 9.1 H Eos % (Auto) 1.1 Baso % (Auto) 0.6 Lymph # (Auto) 0.9 L [place] # (Auto) 0.5 Eos # (Auto) 0.1 Baso # (Auto) 0.0 Seg Neutrophils % 72.0 H Seg Neutrophils # 3.8 Sodium 141 Potassium 3.7 Chloride 103.9 Carbon Dioxide 25 Anion Gap 16 BUN 14 Creatinine 1.1 Estimated GFR > 60 BUN/Creatinine Ratio 13 Glucose 105 H Calcium 9.5 Total Bilirubin 2.40 H AST 23 ALT 13 Alkaline Phosphatase 158 H Troponin T < 0.010 Total Protein 7.7 Albumin 4.1 Albumin/Globulin Ratio 1.1 - EKG Data -: EKG Interpreted by Me EKG shows normal: sinus rhythm, axis, intervals Rate: normal - EKG Data When compared to previous EKG there are: changes noted, other (EKG unchanged from June 03, 2020) Interpretation: nonspecific ST-T wave jason 12/22/20 19:24 EKG obtained 1544 first EKG EKG interpreted by me Normal sinus rhythm rate 85 bpm normal axis normal intervals incomplete left bundle branch block no ST elevation nonspecific T wave pattern 12/22/20 19:25 12/22/20 19:32 Second EKG obtained 1924 EKG is unchanged from EKG obtained 1544 Normal sinus rhythm rate 80 bpm PVCs present no ST elevation no T wave changes - Radiology Data Radiology results: report reviewed cxr: no acute findings - Medical Decision Making Mr. Suazo is a 65-year-old male with history of complex coronary disease status post cardiac stents x2, triple-vessel bypass, multiple interventions who presents with recurrent chest pain. My clinical impression: Recurrent chronic stable angina. Patient has persistent pain at rest. Pain does not appear to be associated with exertion. Troponin times x 2 negative. He will benefit the most by evaluation by his primary bone glue maker and compliance with his medical regimen. Heart score 5 due to extensive cardiac history. I do not suspect acute coronary syndrome at this time.Symptoms improved with IV morphine, blood pressure control as well as diuretic. Patient is discharged home to follow-up with his primary bone glue maker. Troponin x 2 negative. EKG x 2 without ischemic changes. Critical care attestation.: If time is entered above; I have spent that time in minutes in the direct care of this critically ill patient, excluding procedure time. ED Disposition Clinical Impression: Stable angina pectoris, History of PTCA, CAD (coronary artery disease), Ischemic cardiomyopathy Disposition: DC-01 TO HOME OR SELFCARE Is pt being admited?: No Does the pt Need Aspirin: No Condition: Fair Instructions: Angina, [id number], Angina (ED) Referrals: PRIMARY CARE, [Primary Care Provider] - 3-5 Days
[2020-12-22] MEDS ORDERED: NITROGLYCERIN 0.4 MG TAB SUBL SL ONE (19:01)
[2020-12-22 20:37] VITALS: BP 175/90
== END 2020-12-22 19:40 | disposition home or self-care (01) ==
LOC: ED 15:24
DX: I25.118 Atherosclerotic heart disease of native coronary artery with other forms of angina pectoris (principal); I25.5 Ischemic cardiomyopathy; I11.0 Hypertensive heart disease with heart failure; I50.9 Heart failure, unspecified; Z98.61 Coronary angioplasty status; Z98.890 Other specified postprocedural states; Z87.891 Personal history of nicotine dependence; Z79.899 Other long term (current) drug therapy; Z88.8 Allergy status to other drugs, medicaments and biological substances
CPT/HCPCS: 36415; 71046; 80053; 84484; 85025; 96374; 96375; 96376; 99284; J1940; J2270; J2405; 93005

== ENCOUNTER 2021-03-22 21:02 | Observation (INO) | payer MEDICARE ==
--- NOTE | 2021-03-22 22:08 | XRay Report ---
CHEST 2 VIEWS INDICATION / CLINICAL INFORMATION: chest pain. COMPARISON: 12/22/2020 FINDINGS: SUPPORT DEVICES: None. HEART / MEDIASTINUM: Stable. LUNGS / PLEURA: Interval development of mild central pulmonary vascular congestion. No confluent infi ltrates or pleural effusions. No pneumothorax. ADDITIONAL FINDINGS: No significant additional findings. IMPRESSION: 1. Findings consistent with congestive heart failure and interval development of mild central pulmona ry vascular congestion. Signer Name: Adan Larkin MD Signed: 03/22/2021 10:03 PM Workstation Name: [id number]
[2021-03-22 22:21] LABS: Basophils % (Auto) 0.6 % (0.0-1.8); Eosinophils # (Auto) 0.1 K/mm3 (0.0-0.4); Eosinophils % (Auto) 1.4 % (0.0-4.3); Hematocrit 33.9 % (35.5-45.6); Hemoglobin 11.3 gm/dl (11.8-15.2); Lymphocytes # (Auto) 0.9 K/mm3 (1.2-5.4); Lymphocytes % (Auto) 16.8 % (13.4-35.0); Mean Corpuscular HGB Conc 33 % (32-34); Mean Corpuscular Volume 100 fl (84-94); Monocytes # (Auto) 0.3 K/mm3 (0.0-0.8); Monocytes % (Auto) 5.5 % (0.0-7.3); Platelet Count 131 K/mm3 (140-440); Red Blood Count 3.39 M/mm3 (3.65-5.03)
[2021-03-22 22:41] LABS: Alanine Aminotransferase 18 units/L (7-56); Albumin 4.1 g/dL (3.9-5); BUN/Creatinine Ratio 16; Blood Urea Nitrogen 16 mg/dL (9-20); Calcium 8.8 mg/dL (8.4-10.2); Hemolysis Index 0
[2021-03-23] MEDS ORDERED: FUROSEMIDE 40 MG/4 ML INJ IV ONE (00:52)
--- NOTE | 2021-03-23 00:53 | Emergency Department Report ---
ED Chest Pain HPI - General Chief Complaint: Chest Pain Stated Complaint: CHEST PAIN/TIGHTNESS PUI?: No Time Seen by Provider: 03/23/21 00:30 Source: patient Mode of arrival: Ambulatory Limitations: No Limitations - History of Present Illness Initial Comments: Patient is a 65-year-old male who presents emergency room with complaints of chest pain and lower extremity edema. Patient states the chest pain is an 8 out of 10. Patient states it started at 4 AM today and is worsening. Patient states that the pain is in the left chest and is rating to his neck and left upper extremity. Patient states that the pain is better with rest and worse with exertion. Patient also complains of shortness of breath. Patient states that the shortness of breath is better with rest and worse with exertion. Patient denies fever and chills. Patient denies cough. Patient denies recent travel. Patient denies recent international travel. Patient denies exposure to the novel coronavirus. Patient denies sick contacts. Patient denies fever and chills. Patient denies cough. Patient denies diarrhea. Patient denies coming in contact with anybody with symptoms of the novel coronavirus. Patient states she has a past medical history of diabetes, 4 MIs, CABG, stents, triple bypass, CVA, congestive heart failure, hypertension, high cholesterol, CAD. MD Complaint: chest pain -: Sudden Onset: during rest Pain Location: substernal, left chest Pain Radiation: LUE, jaw/teeth Severity: severe Severity scale (0 -10): 8 Quality: pressure Consistency: constant Improves With: rest Worsens With: exertion re: dyspnea. denies: nausea, vomting, diaphoresis Other Symptoms: leg swelling. denies: cough, fever, syncope, rash, acid taste in mouth, palpitations, burping Treatments Prior to Arrival: aspirin Aspirin use within the Past 7 Days: (1) Yes - Related Data On Oral Contraceptives: No Home Medications Medication Instructions Recorded Confirmed Last Taken ISOSORBIDE MONOnitrate [Imdur ER] 60 mg PO BID 05/28/19 12/08/19 07/19/19 Potassium Chloride [K-Dur] 10 meq PO QDAY 05/28/19 12/08/19 07/19/19 lisinopriL [Zestril TAB] 5 mg PO QDAY 05/28/19 12/08/19 07/19/19 raNITIdine HCl [Zantac] 300 mg PO BID 05/28/19 12/08/19 07/19/19 risperiDONE [RisperDAL] 0.5 mg PO BID 05/28/19 12/08/19 07/19/19 Previous Rx's Medication Instructions Recorded Last Taken Type Aspirin [Aspirin BABY CHEW TAB] 81 mg PO QDAY #30 tab.chew 10/04/18 07/19/19 Rx Clopidogrel [Plavix] 75 mg PO QDAY #30 tablet 10/04/18 07/19/19 Rx amLODIPine 10 mg PO QDAY #30 tablet 10/04/18 07/19/19 Rx carvediloL [Coreg] 25 mg PO DAILY #30 tablet 10/04/18 07/19/19 Rx hydrALAZINE [Apresoline TAB] 25 mg PO TID #90 tablet 10/04/18 07/19/19 Rx AtorvaSTATin [Lipitor] 80 mg PO QHS tablet 05/30/19 07/19/19 Rx Nitroglycerin [Nitrostat] 0.4 mg SL .Q5MIN PRN #60 tab 12/08/19 Unknown Rx Ranolazine ER [Ranexa ER] 1,000 mg PO BID #60 tablet 12/08/19 Unknown Rx Temazepam 30 mg PO QHS #7 capsule 12/08/19 Unknown Rx Torsemide [Demadex] 40 mg PO BID #60 12/08/19 Unknown Rx Allergies Allergy/AdvReac Type Severity Reaction Status Date / Time hydrocodone Allergy Unknown Unknown Verified 05/29/19 17:35 acetaminophen [From Percocet] Allergy Unknown Verified 12/22/20 15:37 Iodinated Contrast Media Allergy Itching Verified 12/22/20 15:37 [Iodinated Contrast Media - IV Dye] oxycodone [From Percocet] Allergy Unknown Verified 12/22/20 15:37 Heart Score - HEART Score History: Highly suspicious EKG: Non-specific Age: > 65 Risk factors: > 3 risk factors or hx of atherosclerotic disease Troponin: < normal limit HEART Score: 7 - EKG Read Time Time EKG Completed: 21:09 EKG Read Time: 21:11 ED Review of Systems ROS: Stated complaint: CHEST PAIN/TIGHTNESS Other details as noted in HPI Constitutional: denies: chills, fever Eyes: denies: eye pain, eye discharge, vision change ENT: denies: ear pain, throat pain Respiratory: shortness of breath, SOB with exertion, SOB at rest. denies: cough, wheezing Cardiovascular: as per HPI, chest pain, dyspnea on exertion. denies: palpitations Endocrine: no symptoms reported Gastrointestinal: denies: abdominal pain, nausea, diarrhea Genitourinary: denies: urgency, dysuria Musculoskeletal: denies: back pain, joint swelling, arthralgia Skin: denies: rash, lesions Neurological: denies: headache, weakness, paresthesias Psychiatric: denies: anxiety, depression Hematological/Lymphatic: denies: easy bleeding, easy bruising ED Past Medical Hx - Past Medical History Previous Medical History?: Yes Hx Hypertension: Yes Hx CVA: Yes Hx Heart Attack/AMI: Yes (x4) Hx Congestive Heart Failure: Yes Hx Diabetes: No Hx Deep Vein Thrombosis: No Hx Pulmonary Embolism: No Hx Liver Disease: No Hx Sickle Cell Disease: No Hx Arthritis: No Hx Seizures: No Hx Kidney Stones: No Hx Asthma: No Hx COPD: No Hx Tuberculosis: No Hx Dementia: No Hx HIV: No Additional medical history: high cholesterol. 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 - Family History Family history: no significant - Social History Smoking Status: Former Smoker Substance Use Type: None - Medications Home Medications: Home Medications Medication Instructions Recorded Confirmed Last Taken Type Aspirin [Aspirin BABY CHEW TAB] 81 mg PO QDAY #30 tab.chew 10/04/18 12/08/19 07/19/19 Rx Clopidogrel [Plavix] 75 mg PO QDAY #30 tablet 10/04/18 12/08/19 07/19/19 Rx amLODIPine 10 mg PO QDAY #30 tablet 10/04/18 12/08/19 07/19/19 Rx carvediloL [Coreg] 25 mg PO DAILY #30 tablet 10/04/18 12/08/19 07/19/19 Rx hydrALAZINE [Apresoline TAB] 25 mg PO TID #90 tablet 10/04/18 12/08/19 07/19/19 Rx ISOSORBIDE MONOnitrate [Imdur ER] 60 mg PO BID 05/28/19 12/08/19 07/19/19 History Potassium Chloride [K-Dur] 10 meq PO QDAY 05/28/19 12/08/19 07/19/19 History lisinopriL [Zestril TAB] 5 mg PO QDAY 05/28/19 12/08/19 07/19/19 History raNITIdine HCl [Zantac] 300 mg PO BID 05/28/19 12/08/19 07/19/19 History risperiDONE [RisperDAL] 0.5 mg PO BID 05/28/19 12/08/19 07/19/19 History AtorvaSTATin [Lipitor] 80 mg PO QHS tablet 05/30/19 12/08/19 07/19/19 Rx Nitroglycerin [Nitrostat] 0.4 mg SL .Q5MIN PRN #60 tab 12/08/19 Unknown Rx Ranolazine ER [Ranexa ER] 1,000 mg PO BID #60 tablet 12/08/19 Unknown Rx Temazepam 30 mg PO QHS #7 capsule 12/08/19 Unknown Rx Torsemide [Demadex] 40 mg PO BID #60 12/08/19 Unknown Rx ED Physical Exam - General Limitations: No Limitations General appearance: alert, in no apparent distress - Head Head exam: Present: atraumatic, normocephalic - Eye Eye exam: Present: normal appearance - ENT ENT exam: Present: mucous membranes moist - Neck Neck exam: Present: normal inspection - Respiratory Respiratory exam: Present: normal lung sounds bilaterally. Absent: respiratory distress, wheezes, rales, chest wall tenderness - Cardiovascular Cardiovascular Exam: Present: regular rate, normal rhythm. Absent: systolic m urmur, diastolic murmur, rubs, gallop - GI/Abdominal GI/Abdominal exam: Present: soft, normal bowel sounds - Rectal Rectal exam: Present: deferred - Extremities Exam Extremities exam: Present: normal inspection - Back Exam Back exam: Present: normal inspection - Neurological Exam Neurological exam: Present: alert, oriented X3 - Psychiatric Psychiatric exam: Present: normal affect, normal mood - Skin Skin exam: Present: warm, dry, intact, normal color. Absent: rash ED Course Vital Signs 04/29/21 04/30/21 04/30/21 21:17 01:12 01:31 Temperature 98.6 F Pulse Rate 80 78 Respiratory 18 16 15 Rate Blood Pressure 170/84 161/88 O2 Sat by Pulse 91 99 Oximetry 03/23/21 03/23/21 03/23/21 01:45 01:52 02:01 Temperature Pulse Rate 88 77 Respiratory 16 11 L Rate Blood Pressure 171/81 170/89 157/88 O2 Sat by Pulse 97 95 Oximetry 03/23/21 03/23/21 02:15 02:21 Temperature Pulse Rate 76 77 Respiratory 27 H 22 Rate Blood Pressure 175/78 188/120 O2 Sat by Pulse 99 97 Oximetry - Reevaluation(s) Reevaluation #1: I discussed all results with patient. I discussed plan of care with patient. Patient agrees with plan of care and admission. Patient to be admitted to the hospitalist service. 03/23/21 01:01 - Consultations Consultation #1: Hospitalist consulted for admission. Hospitalist to admit patient. 03/23/21 01:01 SHAWN score - Shawn Score Age > 65: (0) No Aspirin use within the Past 7 Days: (1) Yes 3 or more CAD Risk Factors: (1) Yes 2 or more Angina events in past 24 hrs: (1) Yes Known CAD with more than 50% Stenosis: (1) Yes (as per catheterization report 2013, patient had severe disease.) Elevated Cardiac Markers: (1) Yes ST Deviation Greater than 0.5mm: (0) No SHAWN Score: 5 ED Medical Decision Making - Lab Data Result diagrams: 03/22/21 21:51 03/22/21 21:51 - EKG Data -: EKG Interpreted by Me EKG shows normal: sinus rhythm, axis, intervals, ST-T waves Rate: normal - EKG Data Interpretation: other (Left bundle branch block) - Radiology Data Radiology results: report reviewed, image reviewed interpreted by me: Chest x-ray: No pneumonia, no pneumothorax, no foreign body, no osseous finding s, CHF changes, cardiomegaly. CHEST 2 VIEWS INDICATION / CLINICAL INFORMATION: chest pain. COMPARISON: 12/22/2020 FINDINGS: SUPPORT DEVICES: None. HEART / MEDIASTINUM: Stable. LUNGS / PLEURA: Interval development of mild central pulmonary vascular congestion. No confluent infiltrates or pleural effusions. No pneumothorax. ADDITIONAL FINDINGS: No significant additional findings. IMPRESSION: 1. Findings consistent with congestive heart failure and interval development of mild central pulmonary vascular congestion. - Medical Decision Making Patient is a 65-year-old male who presents emergency room with complaints of chest pain shortness of breath. Patient has a significant cardiac history. Patient's heart score is elevated. Patient's SHAWN score is elevated. Patient had labs done which were essentially unremarkable except for mild anemia. Patient troponin negative. Patient had a chest x-ray which shows CHF changes. Patient had an EKG which shows a left bundle branch block. I personally reviewed the EKG and the chest x-ray. Patient will require admission to the hospital service to rule out ACS and have a cardiology consult due to the patient being high risk. . Patient admitted to the hospital service for further evaluation treatment. Critical care time documented due to the multiple reassessments, prolonged time at the bedside, interpretation of diagnostics and labs. - Differential Diagnosis Chest pain, shortness of breath, ACS, Critical Care Time: Yes Critical care time in (mins) excluding proc time.: 35 Critical care attestation.: If time is entered above; I have spent that time in minutes in the direct care o f this critically ill patient, excluding procedure time. Critical Care Time: 35 minutes ED Disposition Clinical Impression: SOB (shortness of breath), RAMIREZ (dyspnea on exertion) CHF (congestive heart failure) Qualifiers: Heart failure type: unspecified Heart failure chronicity: acute on chronic Qualified Code(s): I50.9 - Heart failure, unspecified Chest pain Qualifiers: Chest pain type: unspecified Qualified Code(s): R07.9 - Chest pain, unspecified CAD (coronary artery disease) Qualifiers: Coronary Disease-Associated Artery/Lesion type: unspecified vessel or lesion type [place] vs. transplanted heart: hopi heart Associated angina: unspecified whether angina present Qualified Code(s): I25.10 - Atherosclerotic heart disease of hopi coronary artery without angina pectoris Pulmonary edema Qualifiers: Chronicity: acute Qualified Code(s): J81.0 - Acute pulmonary edema Acute exacerbation of congestive heart failure Qualifiers: Heart failure type: unspecified Qualified Code(s): I50.9 - Heart failure, unspecified Disposition: DC-09 OP ADMIT IP TO THIS HOSP Is pt being admited?: Yes Does the pt Need Aspirin: No Condition: Critical Time of Disposition: 01:02
[2021-03-23] MEDS ORDERED: MORPHINE 4 MG/1 ML INJ IV ONE (01:44)
[2021-03-23] MEDS ORDERED: NITROGLYCERIN 0.4 MG TAB SUBL SL ONE (01:44)
[2021-03-23] MEDS ORDERED: ONDANSETRON 4 MG/2 ML INJ IV PRN (03:55)
[2021-03-23] MEDS ORDERED: traMADol 50 MG TAB PO PRN (03:55)
[2021-03-23] MEDS ORDERED: MAGNESIUM HYDROXIDE (MOM) ORAL LIQD UDC PO PRN (03:55)
[2021-03-23] MEDS ORDERED: NITROGLYCERIN 0.4 MG TAB SUBL SL PRN (03:55)
[2021-03-23] MEDS ORDERED: HYDROmorphone 1 MG/1 ML INJ IV PRN (04:05)
--- NOTE | 2021-03-23 04:11 | History and Physical Report ---
History of Present Illness Date of examination: 03/23/21 Date of admission: 03/23/21 01:04 Chief complaint: Chest pain History of present illness: [id number]-old male with known history of hypertension, coronary artery disease with CABG in the past and hyperlipidemia presenting to the emergency room today complaining of chest pain and swelling in his lower extremities. Symptoms are said to have started earlier today. Chest pain is said to be left- sided radiating into the left upper extremity and left side of his neck. On a scale of 10 pain was about 8/10 in severity. Pain is worse on exertion feels better on resting. He has had associated shortness of breath but denies any cough, denies any fever or chills, no nausea vomiting, no headache or dizziness, no diaphoresis. Patient denies any sick contacts and no recent travel. Denies any contact with anyone with COVID-19. Work-up in the emergency room including EKG, troponins were within normal trujillo its. Chest x-ray shows pulmonary congestion. Patient is being admitted with chest pain and a acute exacerbation of CHF. 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) Social history: smoking (Former smoker) Medications and Allergies Allergies Allergy/AdvReac Type Severity Reaction Status Date / Time hydrocodone Allergy Unknown Unknown Verified 05/29/19 17:35 acetaminophen [From Percocet] Allergy Unknown Verified 12/22/20 15:37 Iodinated Contrast Media Allergy Itching Verified 12/22/20 15:37 [Iodinated Contrast Media - IV Dye] oxycodone [From Percocet] Allergy Unknown Verified 12/22/20 15:37 Home Medications Medication Instructions Recorded Confirmed Last Taken Type Aspirin [Aspirin BABY CHEW TAB] 81 mg PO QDAY #30 tab.chew 10/04/18 12/08/19 07/19/19 Rx Clopidogrel [Plavix] 75 mg PO QDAY #30 tablet 10/04/18 12/08/19 07/19/19 Rx amLODIPine 10 mg PO QDAY #30 tablet 10/04/18 12/08/19 07/19/19 Rx carvediloL [Coreg] 25 mg PO DAILY #30 tablet 10/04/18 12/08/19 07/19/19 Rx hydrALAZINE [Apresoline TAB] 25 mg PO TID #90 tablet 10/04/18 12/08/19 07/19/19 Rx ISOSORBIDE MONOnitrate [Imdur ER] 60 mg PO BID 05/28/19 12/08/19 07/19/19 History Potassium Chloride [K-Dur] 10 meq PO QDAY 05/28/19 12/08/19 07/19/19 History lisinopriL [Zestril TAB] 5 mg PO QDAY 05/28/19 12/08/19 07/19/19 History raNITIdine HCl [Zantac] 300 mg PO BID 05/28/19 12/08/19 07/19/19 History risperiDONE [RisperDAL] 0.5 mg PO BID 05/28/19 12/08/19 07/19/19 History AtorvaSTATin [Lipitor] 80 mg PO QHS tablet 05/30/19 12/08/19 07/19/19 Rx Nitroglycerin [Nitrostat] 0.4 mg SL .Q5MIN PRN #60 tab 12/08/19 Unknown Rx Ranolazine ER [Ranexa ER] 1,000 mg PO BID #60 tablet 12/08/19 Unknown Rx Temazepam 30 mg PO QHS #7 capsule 12/08/19 Unknown Rx Torsemide [Demadex] 40 mg PO BID #60 12/08/19 Unknown Rx Active Meds: Active Medications Aspirin (Aspirin 325 Mg Tab) 325 mg PO QDAY [place] Furosemide (Furosemide 40 Mg/4 Ml Inj) 40 mg IV BID@0600,1800 [place] Hydromorphone HCl (Hydromorphone 1 Mg/1 Ml Inj) 0.5 mg IV Q3H PRN PRN Reason: Pain , Severe (7-10) Magnesium Hydroxide (Magnesium Hydroxide (Mom) Oral Liqd Udc) 30 ml PO Q4H PRN PRN Reason: Constipation Nitroglycerin (Nitroglycerin 0.4 Mg Tab Subl) 0.4 mg SL .Q5MIN PRN PRN Reason: Chest Pain Ondansetron HCl (Ondansetron 4 Mg/2 Ml Inj) 4 mg IV Q8H PRN PRN Reason: Nausea And Vomiting Sodium Chloride (Sodium Chloride 0.9% 10 Ml Flush Syringe) 10 ml IV BID [place] Sodium Chloride (Sodium Chloride 0.9% 10 Ml Flush Syringe) 10 ml IV PRN PRN PRN Reason: LINE FLUSH Sodium Chloride (Sodium Chloride 0.9% 10 Ml Flush Syringe) 10 ml IV PRN PRN PRN Reason: LINE FLUSH Tramadol HCl (Tramadol 50 Mg Tab) 50 mg PO Q6H PRN PRN Reason: Pain, Moderate (4-6) Review of Systems Constitutional: no fever, no chills Ears, nose, mouth and throat: no nasal congestion, no sore throat Cardiovascular: chest pain, no palpitations Respiratory: no cough, no shortness of breath Gastrointestinal: no abdominal pain, no nausea, no vomiting, no diarrhea Genitourinary Male: no dysuria, no hematuria, no flank pain, no nocturia Musculoskeletal: no neck pain, no low back pain Integumentary: no rash, no pruritis Neurological: no headaches, no confusion Psychiatric: no anxiety, no depression Endocrine: no polyphagia, no polydipsia, no polyuria, no nocturia Exam - Constitutional Vitals: Temp Pulse Resp BP Pulse Ox 98.6 F 83 20 142/92 99 03/22/21 21:17 03/23/21 04:04 03/23/21 02:42 03/23/21 02:42 03/23/21 02:42 General appearance: Present: no acute distress, well-nourished - EENT Eyes: Present: PERRL, EOM intact. Absent: scleral icterus ENT: hearing intact, clear oral mucosa, dentition normal - Neck Neck: Present: supple, normal ROM - Respiratory Respiratory effort: normal Respiratory: bilateral: CTA - Cardiovascular Rhythm: regular Heart Sounds: Present: S1 & S2. Absent: gallop, systolic murmur, diastolic murmur, rub, click - Extremities Extremities: no ischemia, pulses intact, pulses symmetrical, No edema, normal temperature, normal color, Full ROM Peripheral Pulses: within normal limits - Abdominal General gastrointestinal: Present: soft, non-tender, non-distended, normal bowel sounds. Absent: mass - Integumentary Integumentary: Present: clear, warm, dry. Absent: rash - Musculoskeletal Musculoskeletal: strength equal bilaterally - Psychiatric Psychiatric: appropriate mood/affect, intact judgment & insight, memory intact, cooperative - Neurologic Neurologic: CNII-XII intact, no focal deficits, moves all extremities HEART Score - HEART Score History: Moderately suspicious EKG: Non-specific Age: > 65 Risk factors: > 3 risk factors or hx of atherosclerotic disease Troponin: Troponin T < 0.010 ng/mL (0.00-0.029) 03/23/21 00:46 Troponin: < normal limit HEART Score: 6 Results - Labs CBC & Chem 7: 03/22/21 21:51 03/22/21 21:51 Labs: Abnormal lab results 03/22/21 03/22/21 03/23/21 Range/Units 21:51 21:51 00:46 RBC 3.39 L (3.65-5.03) M/mm3 Hgb 11.3 L (11.8-15.2) gm/dl Hct 33.9 L (35.5-45.6) % MCV 100 H (84-94) fl MCH 33 H (28-32) pg Plt Count 131 L (140-440) K/mm3 Lymph # (Auto) 0.9 L (1.2-5.4) K/mm3 Seg Neutrophils % 75.7 H (40.0-70.0) % Glucose 107 H (75-100) mg/dL Alkaline Phosphatase 134 H (35-129) units/L NT-Pro-B Natriuret Pep 1476 H (0-900) pg/mL Assessment and Plan - Patient Problems (1) Chest pain Current Visit: Yes Status: Acute Qualifiers: Chest pain type: unspecified Qualified Code(s): R07.9 - Chest pain, unspecified Plan to address problem: Patient admitted and placed on telemetry. We will trend cardiac enzymes. Patient placed on daily aspirin, sublingual nitroglycerin and morphine as needed for chest pain. Consult placed to cardiology for evaluation. (2) Acute exacerbation of congestive heart failure Current Visit: Yes Status: Acute Qualifiers: Heart failure type: unspecified Qualified Code(s): I50.9 - Heart failure, unspecified Plan to address problem: Patient placed on diuretics. Will monitor inputs and outputs and also monitor daily weights. We will schedule for echocardiogram. (3) HTN (hypertension), benign Current Visit: No Status: Chronic Plan to address problem: We will resume routine medications and monitor vital signs closely. (4) Hyperlipidemia Current Visit: No Status: Chronic Plan to address problem: We will continue routine home medications and we will monitor lipid profile. (5) DVT prophylaxis Current Visit: No Status: Acute Plan to address problem: Patient placed on subcutaneous heparin. (6) Full code status Current Visit: No Status: Acute Plan to address problem: Patient is a full code.
[2021-03-23] MEDS ORDERED: FUROSEMIDE 40 MG/4 ML INJ IV SCH (06:00)
[2021-03-23 06:26] LABS: Chol/HDL Ratio 2.28 %
[2021-03-23 06:27] LABS: BUN/Creatinine Ratio 17; Blood Urea Nitrogen 15 mg/dL (9-20); Calcium 9.2 mg/dL (8.4-10.2); Hemolysis Index 5
[2021-03-23 07:37] LABS: Hematocrit 34.1 % (35.5-45.6); Hemoglobin 11.3 gm/dl (11.8-15.2); Mean Corpuscular HGB Conc 33 % (32-34); Mean Corpuscular Volume 99 fl (84-94); Platelet Count 135 K/mm3 (140-440); Red Blood Count 3.44 M/mm3 (3.65-5.03); Red Cell Distribution Width 15.1 % (13.2-15.2)
[2021-03-23] MEDS ORDERED: carvediloL 25 MG TAB PO SCH (08:00)
[2021-03-23] MEDS: hydrALAZINE 25 MG TAB PO SCH ×2 (08:09→14:38)
[2021-03-23] MEDS ORDERED: REGADENOSON 0.4 MG/5 ML INJ IV ONE (08:27)
[2021-03-23] MEDS ORDERED: amLODIPine 10 MG TAB PO SCH (10:00)
[2021-03-23] MEDS ORDERED: ASPIRIN 81 MG TAB CHEW PO SCH (10:00)
[2021-03-23] MEDS ORDERED: CLOPIDOGREL 75 MG TAB PO SCH (10:00)
[2021-03-23] MEDS ORDERED: ASPIRIN 325 MG TAB PO SCH (10:00)
[2021-03-23] MEDS ORDERED: RANOLAZINE ER 500 MG TAB 12HR PO SCH ×4 (10:00→22:00)
[2021-03-23] MEDS ORDERED: LISINOPRIL 5 MG TAB PO SCH (10:00)
[2021-03-23] MEDS ORDERED: risperiDONE 1 MG TAB PO SCH (10:00)
[2021-03-23] MEDS ORDERED: FAMOTIDINE 20 MG TAB PO SCH (10:00)
--- NOTE | 2021-03-23 10:51 | Consultation ---
History of Present Illness Consult date: 03/23/21 Consult reason: chest pain History of present illness: This is a 65-year old M a history of complex coronary artery disease, including a remote coronary bypass, followed with transmyocardial laser revascularization surgery done via a lateral thoracic wall incision in 2014 at [facility]. He has had multiple cardiac catheterizations and angioplasty procedures. His latest cardiac workup was done last month at [facility]. A cardiac cath reports patent JARRELL to LAD, patent SVG to the Ramus, and chronically occluded SVG to the RCA. Unchanged from prior cardiac catheterizations done in 2018 and again in 2019. Patient is on medical management for small vessel disease and chronic stable angina. Patient presents to the emergency department, admitted with recurrent chest pain. Cycled iso-enzymes were normal. An ECG shows sinus rhythm with a left bundle branch block. Cardiology consultation has been requested. 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) Social history: smoking (Former smoker) Medications and Allergies Allergies Allergy/AdvReac Type Severity Reaction Status Date / Time hydrocodone Allergy Unknown Unknown Verified 05/29/19 17:35 acetaminophen [From Percocet] Allergy Unknown Verified 12/22/20 15:37 Iodinated Contrast Media Allergy Itching Verified 12/22/20 15:37 [Iodinated Contrast Media - IV Dye] oxycodone [From Percocet] Allergy Unknown Verified 12/22/20 15:37 Home Medications Medication Instructions Recorded Confirmed Last Taken Type Aspirin [Aspirin BABY CHEW TAB] 81 mg PO QDAY #30 tab.chew 10/04/18 12/08/19 07/19/19 Rx Clopidogrel [Plavix] 75 mg PO QDAY #30 tablet 10/04/18 12/08/19 07/19/19 Rx amLODIPine 10 mg PO QDAY #30 tablet 10/04/18 12/08/19 07/19/19 Rx carvediloL [Coreg] 25 mg PO DAILY #30 tablet 10/04/18 12/08/19 07/19/19 Rx hydrALAZINE [Apresoline TAB] 25 mg PO TID #90 tablet 10/04/18 12/08/19 07/19/19 Rx ISOSORBIDE MONOnitrate [Imdur ER] 60 mg PO BID 05/28/19 12/08/19 07/19/19 History Potassium Chloride [K-Dur] 10 meq PO QDAY 05/28/19 12/08/19 07/19/19 History lisinopriL [Zestril TAB] 5 mg PO QDAY 05/28/19 12/08/19 07/19/19 History raNITIdine HCl [Zantac] 300 mg PO BID 05/28/19 12/08/19 07/19/19 History risperiDONE [RisperDAL] 0.5 mg PO BID 05/28/19 12/08/19 07/19/19 History AtorvaSTATin [Lipitor] 80 mg PO QHS tablet 05/30/19 12/08/19 07/19/19 Rx Nitroglycerin [Nitrostat] 0.4 mg SL .Q5MIN PRN #60 tab 12/08/19 Unknown Rx Ranolazine ER [Ranexa ER] 1,000 mg PO BID #60 tablet 12/08/19 Unknown Rx Temazepam 30 mg PO QHS #7 capsule 12/08/19 Unknown Rx Torsemide [Demadex] 40 mg PO BID #60 12/08/19 Unknown Rx Active Meds: Active Medications Amlodipine Besylate (Amlodipine 10 Mg Tab) 10 mg PO QDAY [facility] Last Admin: 03/23/21 10:09 Dose: 10 mg Documented by: Aspirin (Aspirin 81 Mg Tab Chew) 81 mg PO QDAY [facility] Last Admin: 03/23/21 10:09 Dose: 81 mg Documented by: Atorvastatin Calcium (Atorvastatin 40 Mg Tab) 80 mg PO QHS [facility] Carvedilol (Carvedilol 25 Mg Tab) 25 mg PO DAILY@0800 [facility] Last Admin: 03/23/21 10:07 Dose: 25 mg Documented by: Clopidogrel Bisulfate (Clopidogrel 75 Mg Tab) 75 mg PO QDAY [facility] Last Admin: 03/23/21 10:09 Dose: 75 mg Documented by: Famotidine (Famotidine 20 Mg Tab) 20 mg PO BID [facility] Last Admin: 03/23/21 10:09 Dose: 20 mg Documented by: Furosemide (Furosemide 40 Mg/4 Ml Inj) 40 mg IV BID@0600,1800 [facility] Last Admin: 03/23/21 06:16 Dose: 40 mg Documented by: Hydralazine HCl (Hydralazine 25 Mg Tab) 25 mg PO TID [facility] Last Admin: 03/23/21 08:09 Dose: Not Given Documented by: Hydromorphone HCl (Hydromorphone 1 Mg/1 Ml Inj) 0.5 mg IV Q3H PRN PRN Reason: Pain , Severe (7-10) Last Admin: 03/23/21 06:16 Dose: 0.5 mg Documented by: Isosorbide Mononitrate (Isosorbide Mononitrate Er 60 Mg Tab) 60 mg PO BID [facility] Last Admin: 03/23/21 10:07 Dose: 60 mg Documented by: Lisinopril (Lisinopril 5 Mg Tab) 5 mg PO QDAY [facility] Last Admin: 03/23/21 10:08 Dose: 5 mg Documented by: Magnesium Hydroxide (Magnesium Hydroxide (Mom) Oral Liqd Udc) 30 ml PO Q4H PRN PRN Reason: Constipation Nitroglycerin (Nitroglycerin 0.4 Mg Tab Subl) 0.4 mg SL .Q5MIN PRN PRN Reason: Chest Pain Ondansetron HCl (Ondansetron 4 Mg/2 Ml Inj) 4 mg IV Q8H PRN PRN Reason: Nausea And Vomiting Ranolazine (Ranolazine Er 500 Mg Tab 12hr) 1,000 mg PO BID [facility] Last Admin: 03/23/21 10:08 Dose: 1,000 mg Documented by: Risperidone (Risperidone 1 Mg Tab) 0.5 mg PO BID [facility] Last Admin: 03/23/21 10:08 Dose: 0.5 mg Documented by: Sodium Chloride (Sodium Chloride 0.9% 10 Ml Flush Syringe) 10 ml IV BID [facility] Sodium Chloride (Sodium Chloride 0.9% 10 Ml Flush Syringe) 10 ml IV PRN PRN PRN Reason: LINE FLUSH Last Admin: 03/23/21 06:19 Dose: 10 ml Documented by: Temazepam (Temazepam 15 Mg Cap) 30 mg PO QHS [facility] Tramadol HCl (Tramadol 50 Mg Tab) 50 mg PO Q6H PRN PRN Reason: Pain, Moderate (4-6) Review of Systems Cardiovascular: chest pain, no palpitations, no syncope Physical Examination Vital Signs Temp Pulse Resp BP Pulse Ox 98.6 F 80 18 170/84 91 03/22/21 21:17 03/22/21 21:17 03/22/21 21:17 03/22/21 21:17 03/22/21 21:17 General appearance: no acute distress HEENT: Positive: PERRL Neck: Positive: trachea midline Cardiac: Positive: Reg Rate and Rhythm Lungs: Positive: Decreased Breath Sounds Extremities: Present: edema (mild) Results 03/23/21 06:38 03/23/21 05:09 Cardiac Enzymes 03/22/21 Range/Units 21:51 AST 23 (5-40) units/L Lipids 03/23/21 Range/Units 05:09 Triglycerides 46 (2-149) mg/dL Cholesterol 144 (50-199) mg/dL HDL Cholesterol 63 H (40-59) mg/dL Cholesterol/HDL Ratio 2.28 % CBC 03/22/21 03/23/21 Range/Units 21:51 06:38 WBC 5.6 8.8 (4.5-11.0) K/mm3 RBC 3.39 L 3.44 L (3.65-5.03) M/mm3 Hgb 11.3 L 11.3 L (11.8-15.2) gm/dl Hct 33.9 L 34.1 L (35.5-45.6) % Plt Count 131 L 135 L (140-440) K/mm3 Lymph # (Auto) 0.9 L Metal Control Worker (1.2-5.4) K/mm3 [place] # (Auto) 0.3 Metal Control Worker (0.0-0.8) K/mm3 Eos # (Auto) 0.1 Metal Control Worker (0.0-0.4) K/mm3 Baso # (Auto) 0.0 Metal Control Worker (0.0-0.1) K/mm3 Comprehensive Metabolic Panel 03/22/21 03/23/21 Range/Units 21:51 05:09 Sodium 143 142 (137-145) mmol/L Potassium 3.8 3.7 (3.6-5.0) mmol/L Chloride 106.9 103.6 (98-107) mmol/L Carbon Dioxide 25 24 (22-30) mmol/L BUN 16 15 (9-20) mg/dL Creatinine 1.0 0.9 (0.8-1.3) mg/dL Glucose 107 H 93 (75-100) mg/dL Calcium 8.8 9.2 (8.4-10.2) mg/dL AST 23 (5-40) units/L ALT 18 (7-56) units/L Alkaline Phosphatase 134 H (35-129) units/L Total Protein 6.7 (6.3-8.2) g/dL Albumin 4.1 (3.9-5) g/dL Assessment and Plan Chronic stable angina CAD prior [address] way CABG in 1995 [facility] 01/2021 at [facility] [place] reports patent JARRELL to LAD, patent SVG to the Ramus and chronically occluded SVG to the RCA. s/p transmyocardial laser revascularization (TMR) done at [facility] in 2014. Ischemic Cardiomyopathy echocardiogram done 03/2019 reports a mildly decreased LVEF 40-45%. Essential hypertension Hyperlipidemia History of CVA Recommend: Continue medical therapy for systolic heart failure, ischemic cardiomyopathy and coronary artery disease. Otherwise, conservative cardiac management. Patient is stable for discharge home today. Patient advised to f/u with his primary sales planning analyst at [place].
--- NOTE | 2021-03-23 11:09 | Discharge Summary ---
Providers - Providers Date of Admission: 03/23/21 01:04 Date of discharge: 03/23/21 Attending physician: CAROLINE CURTIS 03/23/21 Consult to Cardiac Rehabilitation [CONS] Routine Reason For Exam: Phase I 03/23/21 03:56 Consult to Cardiology [CONS] Routine Consulting Provider: TAMMY DAI Reason For Exam: Chest Pain Primary care physician: OIL WELL PUMPER Hospitalization Condition: Critical Hospital course: 63-smzg-dvhr-old male with known history of hypertension, coronary artery disease with CABG in the past and hyperlipidemia presenting to the emergency room today complaining of chest pain and swelling in his lower extremities. Symptoms are said to have started earlier today. Chest pain is said to be left- sided radiating into the left upper extremity and left side of his neck. On a scale of 10 pain was about 8/10 in severity. Pain is worse on exertion feels better on resting. He has had associated shortness of breath but denies any cough, denies any fever or chills, no nausea vomiting, no headache or dizziness, no diaphoresis. Patient denies any sick contacts and no recent travel. Denies any contact with anyone with COVID-19. Work-up in the emergency room including EKG, troponins were within normal limits. Chest x-ray shows pulmonary congestion. Patient is being admitted with chest pain and a acute exacerbation of CHF. Hospital course Patient was started on IV diuretics and cardiology was consulted.. Patient has had extensive cardiac work-up including a left heart cath 30 days ago. Patient has been cleared for discharge to follow-up with his fisher purse seine at [place]. He will continue same medications on discharge. Disposition: - TO HOME OR SELFCARE Final Discharge Diagnosis (Prints w/discharge instructions): Chest pain Time spent for discharge: 20 minutes Core Measure Documentation - Palliative Care Palliative Care/ Comfort Measures: Not Applicable - Core Measures Any of the following diagnoses?: none Exam - Constitutional Vitals: Temp Pulse Resp BP Pulse Ox 98.9 F 75 20 156/78 95 03/23/21 07:26 03/23/21 07:26 03/23/21 07:26 03/23/21 10:08 03/23/21 07:26 General appearance: Present: no acute distress, well-nourished - EENT Eyes: Present: PERRL ENT: hearing intact, clear oral mucosa - Neck Neck: Present: supple, normal ROM - Respiratory Respiratory effort: normal Respiratory: bilateral: CTA - Cardiovascular Heart Sounds: Present: S1 & S2. Absent: rub, click - Extremities Extremities: pulses symmetrical, No edema Peripheral Pulses: within normal limits - Abdominal General gastrointestinal: Present: soft, non-tender, non-distended, normal bowel sounds Male genitourinary: Present: normal - Integumentary Integumentary: Present: clear, warm, dry - Musculoskeletal Musculoskeletal: gait normal, strength equal bilaterally - Psychiatric Psychiatric: appropriate mood/affect, intact judgment & insight - Neurologic Neurologic: CNII-XII intact, moves all extremities Plan Diet: low fat, low cholesterol, low salt, diabetic Additional Instructions: Continue home medications. Follow-up with your fisher purse seine in 1 week. Follow-up with PCP in 5 to 7 days Follow up with: PRIMARY CAREMD [Primary Care Provider] - 7 Days
[2021-03-23 12:22] VITALS: BP 139/68
--- NOTE | 2021-03-23 13:57 | Electrocardiograph Report ---
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
--- NOTE | 2021-03-23 14:00 | Electrocardiograph Report ---
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
--- NOTE | 2021-03-23 14:03 | Electrocardiograph Report ---
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
[2021-03-23] MEDS ORDERED: TEMAZEPAM 15 MG CAP PO SCH (22:00)
== END 2021-03-23 17:20 | disposition home or self-care (01) ==
LOC: ED 21:02 → 4A 03-23 01:04
PROVIDERS: ADMIT Internal Medicine Geriatric Medicine; ATTEND Internal Medicine
DX: I11.0 Hypertensive heart disease with heart failure (principal); I50.9 Heart failure, unspecified; R07.89 Other chest pain; E78.5 Hyperlipidemia, unspecified; I25.5 Ischemic cardiomyopathy; I25.10 Atherosclerotic heart disease of native coronary artery without angina pectoris; J81.0 Acute pulmonary edema; Z86.73 Personal history of transient ischemic attack (TIA), and cerebral infarction without residual deficits; Z95.1 Presence of aortocoronary bypass graft; Z87.891 Personal history of nicotine dependence; Z98.890 Other specified postprocedural states; Z79.899 Other long term (current) drug therapy; Z79.82 Long term (current) use of aspirin; Z79.02 Long term (current) use of antithrombotics/antiplatelets
CPT/HCPCS: 36415; 71046; 80048; 80053; 80061; 83880; 84484; 85025; 93005; 96374; 96375; 96376; 99291; G0378; J1170; J1940; J2270

== ENCOUNTER 2021-04-22 17:52 | Inpatient (IN) | payer MEDICARE ==
[2021-04-22] MEDS ORDERED: SODIUM CHLORIDE 0.9% 1000 ML 1,000 ML IV ONE ×2 (18:08→19:50)
[2021-04-22] MEDS ORDERED: LORazepam 2 MG/ML VIAL ONE (18:29)
[2021-04-22] MEDS ORDERED: LORazepam 2 MG/ML VIAL IV ONE (18:29)
--- NOTE | 2021-04-22 18:38 | XRay Report ---
CHEST 1 VIEW INDICATION: MAIN. Acute generalized chest pain COMPARISON: 03/22/2021 FINDINGS: SUPPORT DEVICES: Endotracheal tube tip along the inferior clavicle margin. HEART: Stable cardiomegaly with sternotomy change. LUNGS/PLEURA: No acute air space or interstitial disease. ADDITIONAL FINDINGS: None. IMPRESSION: 1. Endotracheal tube along the inferior clavicle margin. Signer Name: Eddie Medina MD Signed: 04/22/2021 6:34 PM Workstation Name: [id number]
[2021-04-22 18:40] LABS: Basophils # (Auto) 0.1 K/mm3 (0.0-0.1); Basophils % (Auto) 0.7 % (0.0-1.8); Eosinophils # (Auto) 0.1 K/mm3 (0.0-0.4); Eosinophils % (Auto) 0.4 % (0.0-4.3); Hemoglobin 13.4 gm/dl (11.8-15.2); Lymphocytes # (Auto) 3.4 K/mm3 (1.2-5.4); Lymphocytes % (Auto) 23.4 % (13.4-35.0); Mean Corpuscular HGB Conc 33 % (32-34); Mean Corpuscular Volume 102 fl (84-94); Monocytes # (Auto) 0.7 K/mm3 (0.0-0.8); Monocytes % (Auto) 4.7 % (0.0-7.3); Platelet Count 189 K/mm3 (140-440); Red Blood Count 4.02 M/mm3 (3.65-5.03); Red Cell Distribution Width 14.6 % (13.2-15.2)
[2021-04-22 18:44] LABS: INR 1.17 (0.87-1.13)
[2021-04-22 18:45] LABS: Partial Thromboplastin Time 36.5 Sec. (24.2-36.6)
--- NOTE | 2021-04-22 18:53 | Emergency Department Report ---
ED CPR HPI - General Stated Complaint: CARDIAC ARREST Time Seen by Provider: 04/22/21 18:04 - History of Present Illness Initial Comments: 65-year-old male, history of CAD status post stents and CABG, diabetes, CVA, CHF (EF 40-45%), hypertension, hypercholesterolemia, CAD presents to ED in cardiac arrest. Patient was apparently drinking when he began to complain of some difficulty breathing and then collapsed. No bystander CPR was performed. When the fire truck arrived, AED was placed and shock was advised x2. Upon medic arrival, patient was in asystole. He was given epi x3, Narcan, sodium bicarb x1. Patient did achieve ROSC. Upon ED arrival patient had a pulse present which he soon lost. Chest compressions were started again, patient received 1 round of ACLS here in the ED, receiving epi and bicarb x1. With the next pulse check, patient did have and has sustained pulses. MD Complaint: collapsed during rest Bystander CPR Performed: No Shock Advised: Yes Number of Shocks Delivered: 2 Downtime Before ACLS Arrival (mins): 8 Initial Findings in the Field: unresponsive, no respirations, other rhythm (Asystole) ROSC in the Field: Yes Associated Symptoms: shortness of breath Treatments Prior to Arrival: intubation, chest compressions, defribrillated shocks # (2), epinephrine mgs # (3), sodium bicarbonate (x1), other (Narcan) - Related Data Home Medications Medication Instructions Recorded Confirmed Last Taken ISOSORBIDE MONOnitrate [Imdur ER] 60 mg PO BID 05/28/19 12/08/19 07/19/19 Potassium Chloride [K-Dur] 10 meq PO QDAY 05/28/19 12/08/19 07/19/19 lisinopriL [Zestril TAB] 5 mg PO QDAY 05/28/19 12/08/19 07/19/19 raNITIdine HCl [Zantac] 300 mg PO BID 05/28/19 12/08/19 07/19/19 risperiDONE [RisperDAL] 0.5 mg PO BID 05/28/19 12/08/19 07/19/19 Previous Rx's Medication Instructions Recorded Last Taken Type Aspirin [Aspirin BABY CHEW TAB] 81 mg PO QDAY #30 tab.chew 10/04/18 07/19/19 Rx Clopidogrel [Plavix] 75 mg PO QDAY #30 tablet 10/04/18 07/19/19 Rx amLODIPine 10 mg PO QDAY #30 tablet 10/04/18 07/19/19 Rx carvediloL [Coreg] 25 mg PO DAILY #30 tablet 10/04/18 07/19/19 Rx hydrALAZINE [Apresoline TAB] 25 mg PO TID #90 tablet 10/04/18 07/19/19 Rx AtorvaSTATin [Lipitor] 80 mg PO QHS tablet 05/30/19 07/19/19 Rx Nitroglycerin [Nitrostat] 0.4 mg SL .Q5MIN PRN #60 tab 12/08/19 Unknown Rx Ranolazine ER [Ranexa ER] 1,000 mg PO BID #60 tablet 12/08/19 Unknown Rx Temazepam 30 mg PO QHS #7 capsule 12/08/19 Unknown Rx Torsemide [Demadex] 40 mg PO BID #60 12/08/19 Unknown Rx Allergies Allergy/AdvReac Type Severity Reaction Status Date / Time hydrocodone Allergy Unknown Unknown Verified 05/29/19 17:35 acetaminophen [From Percocet] Allergy Unknown Verified 12/22/20 15:37 Iodinated Contrast Media Allergy Itching Verified 12/22/20 15:37 [Iodinated Contrast Media - IV Dye] oxycodone [From Percocet] Allergy Unknown Verified 12/22/20 15:37 ED Review of Systems ROS: Stated complaint: CARDIAC ARREST Other details as noted in HPI Comment: Unobtainable due to pts medical conditions Respiratory: shortness of breath ED Past Medical Hx - Past Medical History Hx Hypertension: Yes Hx CVA: Yes Hx Heart Attack/AMI: Yes (x4) Hx Congestive Heart Failure: Yes Hx Diabetes: No Hx Deep Vein Thrombosis: No Hx Pulmonary Embolism: No Hx Liver Disease: No Hx Sickle Cell Disease: No Hx Arthritis: No Hx Seizures: No Hx Kidney Stones: No Hx Asthma: No Hx COPD: No Hx Tuberculosis: No Hx Dementia: No Hx HIV: No Additional medical history: high cholesterol. 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 - Social History Smoking Status: Former Smoker Substance Use Type: None - Medications Home Medications: Home Medications Medication Instructions Recorded Confirmed Last Taken Type Aspirin [Aspirin BABY CHEW TAB] 81 mg PO QDAY #30 tab.chew 10/04/18 12/08/19 07/19/19 Rx Clopidogrel [Plavix] 75 mg PO QDAY #30 tablet 10/04/18 12/08/19 07/19/19 Rx amLODIPine 10 mg PO QDAY #30 tablet 10/04/18 12/08/19 07/19/19 Rx carvediloL [Coreg] 25 mg PO DAILY #30 tablet 10/04/18 12/08/19 07/19/19 Rx hydrALAZINE [Apresoline TAB] 25 mg PO TID #90 tablet 10/04/18 12/08/19 07/19/19 Rx ISOSORBIDE MONOnitrate [Imdur ER] 60 mg PO BID 05/28/19 12/08/19 07/19/19 Hist ory Potassium Chloride [K-Dur] 10 meq PO QDAY 05/28/19 12/08/19 07/19/19 History lisinopriL [Zestril TAB] 5 mg PO QDAY 05/28/19 12/08/19 07/19/19 History raNITIdine HCl [Zantac] 300 mg PO BID 05/28/19 12/08/19 07/19/19 History risperiDONE [RisperDAL] 0.5 mg PO BID 05/28/19 12/08/19 07/19/19 History AtorvaSTATin [Lipitor] 80 mg PO QHS tablet 05/30/19 12/08/19 07/19/19 Rx Nitroglycerin [Nitrostat] 0.4 mg SL .Q5MIN PRN #60 tab 12/08/19 Unknown Rx Ranolazine ER [Ranexa ER] 1,000 mg PO BID #60 tablet 12/08/19 Unknown Rx Temazepam 30 mg PO QHS #7 capsule 12/08/19 Unknown Rx Torsemide [Demadex] 40 mg PO BID #60 12/08/19 Unknown Rx ED Physical Exam - Head Head exam: Present: atraumatic, normocephalic - Eye Eye exam: Present: normal appearance - ENT ENT exam: Present: other (ET tube in place) - Neck Neck exam: Present: normal inspection - Respiratory Respiratory exam: Present: normal lung sounds bilaterally. Absent: respiratory distress - Cardiovascular Cardiovascular Exam: Present: normal rhythm, tachycardia - GI/Abdominal GI/Abdominal exam: Present: soft. Absent: distended - Extremities Exam Extremities exam: Present: normal inspection - Skin Skin exam: Present: warm, dry, intact, normal color ED Course Vital Signs 04/22/21 04/22/21 04/22/21 17:52 18:35 18:38 Temperature Pulse Rate 120 H 92 H 94 H Respiratory 30 H 30 H Rate Blood Pressure 138/77 Blood Pressure 144/83 138/77 [Right] O2 Sat by Pulse 100 100 100 Oximetry 04/22/21 04/22/21 04/22/21 18:48 19:10 19:12 Temperature Pulse Rate 93 H 88 83 Respiratory 30 H 30 H 30 H Rate Blood Pressure 138/77 Blood Pressure 106/57 [Right] O2 Sat by Pulse 100 100 100 Oximetry 04/22/21 04/22/21 04/22/21 19:16 19:30 19:46 Temperature Pulse Rate 83 85 87 Respiratory 30 H 29 H 20 Rate Blood Pressure 121/59 136/69 145/74 Blood Pressure [Right] O2 Sat by Pulse 100 100 100 Oximetry 04/22/21 04/22/21 04/22/21 20:16 20:21 20:30 Temperature Pulse Rate 90 93 H 93 H Respiratory 19 0 L 17 Rate Blood Pressure 112/60 170/92 170/92 Blood Pressure [Right] O2 Sat by Pulse 100 98 98 Oximetry 04/22/21 04/22/21 04/22/21 20:46 21:00 21:02 Temperature 97 F L Pulse Rate 92 H 92 H Respiratory 26 H 22 Rate Blood Pressure 166/84 137/92 Blood Pressure [Right] O2 Sat by Pulse 98 98 Oximetry 04/22/21 04/22/21 21:16 21:29 Temperature Pulse Rate 93 H Respiratory 26 H Rate Blood Pressure 163/81 Blood Pressure [Right] O2 Sat by Pulse 98 100 Oximetry - Consultations Consultation #1: 04/22/21 21:[address] Álvarez. He is aware of the patient and will consult. ED Medical Decision Making - Lab Data Result diagrams: 04/22/21 18:12 04/22/21 18:12 - EKG Data -: EKG Interpreted by Ar EKG shows normal: axis Rate: tachycardia (rate 139) - EKG Data Interpretation: other (LBBB) - Radiology Data Radiology results: report reviewed, image reviewed - Medical Decision Making 65-year-old male presents to ED following witnessed cardiac arrest. In the field patient was defibrillated twice, received epi x3, Narcan, and 1 amp of sodium bicarb. Patient regained pulses in the field. Upon ED arrival patient lost his pulse. Following 1 round of ACLS and administering an additional epi and sodium bicarb, patient regained pulses again and has been stable. Patient appeared to have some seizure-like activity approximately 15 minutes after ROSC. Patient was given Ativan. He is currently on a propofol drip. No further seizure activity noticed. CT head is unremarkable for any acute findings. There is evidence of multifocal chronic infarcts. EKG shows left bundle branch block which patient is known to have. Troponin is only 0.03. WBCs 14.6, lactic acid 11 with repeat decreasing to 9.5. Blood cultures drawn, patient given Vanco and cefepime. Patient given 2 L bolus of IV fluids. Per sepsis dosing of 30 cc/kg, patient is to receive 3 L of fluids, however, I have chosen to hold the additional liter as patient does have history of CHF. Vital signs are st able. Patient will be admitted to hospitalist for further management. Critical Care Time: Yes Critical care time in (mins) excluding proc time.: 35 Critical care attestation.: If time is entered above; I have spent that time in minutes in the direct care of this critically ill patient, excluding procedure time. Critical Care Time: 35 MIN ED Disposition Clinical Impression: Cardiac arrest, NSTEMI (non-ST elevated myocardial infarction) Disposition: [id number] OP ADMIT IP TO THIS HOSP Is pt being admited?: Yes Condition: Stable Referrals: PRIMARY CARE, [Primary Care Provider] - 3-5 Days Time of Disposition: 21:19
[2021-04-22 18:54] LABS: BUN/Creatinine Ratio 12; Blood Urea Nitrogen 14 mg/dL (9-20); Calcium 9.3 mg/dL (8.4-10.2); Hemolysis Index 135
[2021-04-22 19:14] LABS: Chol/HDL Ratio 2.34 %; HDL Cholesterol 58 mg/dL (40-59); LDL Cholesterol,Direct 78 mg/dL (50-130)
[2021-04-22] MEDS ORDERED: CEFEPIME/NS 2 GM/100 ML 2 GM/100 ML BAG IV ONE (19:19)
[2021-04-22] MEDS ORDERED: VANCOMYCIN 2,000 MG in SODIUM CHLORIDE 0.9% 500 ML 500 ML IV ONE (20:18)
--- NOTE | 2021-04-22 20:38 | Cat Scan Report ---
CT head/brain wo con INDICATION: cardiac arrest. TECHNIQUE: All CT scans at this location are performed using CT dose reduction for ALARA by means of automated e xposure control. COMPARISON: None available. FINDINGS: There is chronic encephalomalacia in the right temporal lobe and right frontoparietal convexity likel y due to remote prior MCA territory infarct. There are multifocal chronic appearing lacunar infarcts in the cerebral white matter. There is also a small chronic lacunar infarct in the right cerebellar h emisphere. There is no acute hemorrhage or appreciable acute infarct. The albarado-white differentiation is maintain ed. IMPRESSION: 1. No definite acute intracranial abnormality. 2. Multifocal chronic infarcts. Signer Name: Joe Myers MD Signed: 04/22/2021 8:33 PM Workstation Name: [id number]
--- NOTE | 2021-04-22 20:52 | XRay Report ---
ABDOMEN 1 VIEW 04/22/2021 8:22 PM INDICATION / CLINICAL INFORMATION: OGT placement. COMPARISON: None available. FINDINGS: TUBES / LINES: There is an orogastric tube with the tip overlying the distal stomach. BOWEL GAS PATTERN: No significant abnormality. FREE AIR / EXTRALUMINAL GAS: None. ADDITIONAL FINDINGS: The gallbladder is surgically absent. IMPRESSION: Orogastric tube tip overlies the distal stomach. Signer Name: Luigi Aggarwal MD Signed: 04/22/2021 8:47 PM Workstation Name: [id number]
[2021-04-22] MEDS ORDERED: ACETAMINOPHEN 325 MG TAB PO PRN (21:26)
[2021-04-22] MEDS ORDERED: NITROGLYCERIN 0.4 MG TAB SUBL SL PRN ×2 (21:26→21:33)
[2021-04-22] MEDS ORDERED: DEXTROSE 50% IN WATER (25GM) 50 ML SYRINGE IV PRN (21:26)
[2021-04-22] MEDS ORDERED: ONDANSETRON 4 MG/2 ML INJ IV PRN (21:26)
[2021-04-22] MEDS ORDERED: ALBUTEROL 2.5 MG/3 ML NEBU IH PRN (21:26)
[2021-04-22] MEDS ORDERED: SODIUM CHLORIDE 0.9% 1000 ML 1,000 ML IV SCH (21:30)
[2021-04-22] MEDS ORDERED: HEPARIN 10,000 UNITS/10 ML VIAL IV ONE (21:39)
[2021-04-22] MEDS ORDERED: HEPARIN 10,000 UNITS/10 ML VIAL IV PRN (21:39)
--- NOTE | 2021-04-22 21:41 | History and Physical Report ---
History of Present Illness Date of examination: 04/22/21 Date of admission: 04/22/21 Chief complaint: Cardiac arrest History of present illness: 65-year-old male with past medical history of CAD status post stents and CABG, diabetes, CVA, CHF (EF 40-45%), hypertension, hypercholesterolemia was brought to the emergency room in cardiac arrest. Patient was apparently drinking when he began to complain of some difficulty breathing and then collapsed. No bystander CPR was performed. When the fire truck arrived, AED was placed and shock was advised x2. Upon medic arrival, patient was in asystole. He was given epi x3, Narcan, sodium bicarb x1. Patient did achieve ROSC. Upon ED arrival patient had a pulse present which he soon lost. Chest compressions were started again, patient received 1 round of ACLS here in the ED, receiving epi and bicarb x1. With the next pulse check, patient did have and has sustained pulses. In the emergency room patient is intubated. Patient WBC is 14.6. Lactic acid is 11.00 and troponin is 0.363 Past History Past Medical History: CAD, diabetes, heart failure, hypertension, hyper lipidemia, stroke Past Surgical History: CABG Medications and Allergies Allergies Allergy/AdvReac Type Severity Reaction Status Date / Time hydrocodone Allergy Unknown Unknown Verified 05/29/19 17:35 acetaminophen [From Percocet] Allergy Unknown Verified 12/22/20 15:37 Iodinated Contrast Media Allergy Itching Verified 12/22/20 15:37 [Iodinated Contrast Media - IV Dye] oxycodone [From Percocet] Allergy Unknown Verified 12/22/20 15:37 Home Medications Medication Instructions Recorded Confirmed Last Taken Type Aspirin [Aspirin BABY CHEW TAB] 81 mg PO QDAY #30 tab.chew 10/04/18 12/08/19 07/19/19 Rx Clopidogrel [Plavix] 75 mg PO QDAY #30 tablet 10/04/18 12/08/19 07/19/19 Rx amLODIPine 10 mg PO QDAY #30 tablet 10/04/18 12/08/19 07/19/19 Rx carvediloL [Coreg] 25 mg PO DAILY #30 tablet 10/04/18 12/08/19 07/19/19 Rx hydrALAZINE [Apresoline TAB] 25 mg PO TID #90 tablet 10/04/18 12/08/19 07/19/19 Rx ISOSORBIDE MONOnitrate [Imdur ER] 60 mg PO BID 05/28/19 12/08/19 07/19/19 History Potassium Chloride [K-Dur] 10 meq PO QDAY 05/28/19 12/08/19 07/19/19 History lisinopriL [Zestril TAB] 5 mg PO QDAY 05/28/19 12/08/19 07/19/19 History raNITIdine HCl [Zantac] 300 mg PO BID 05/28/19 12/08/19 07/19/19 History risperiDONE [RisperDAL] 0.5 mg PO BID 05/28/19 12/08/19 07/19/19 History AtorvaSTATin [Lipitor] 80 mg PO QHS tablet 05/30/19 12/08/19 07/19/19 Rx Nitroglycerin [Nitrostat] 0.4 mg SL .Q5MIN PRN #60 tab 12/08/19 Unknown Rx Ranolazine ER [Ranexa ER] 1,000 mg PO BID #60 tablet 12/08/19 Unknown Rx Temazepam 30 mg PO QHS #7 capsule 12/08/19 Unknown Rx Torsemide [Demadex] 40 mg PO BID #60 12/08/19 Unknown Rx Active Meds: Active Medications Propofol (Diprivan 10 Mg/Ml) 1,000 mg in 100 mls @ 3 mls/hr IV TITR [facility]; Protocol Last Titration: 04/22/21 21:15 Dose: 15 mcg/kg/min, 9 mls/hr Documented by: Vancomycin HCl 2,000 mg/ (Sodium Chloride) 540 mls @ 270 mls/hr IV ONCE ONE; Protocol Stop: 04/22/21 22:17 Review of Systems Cardiovascular: chest pain, shortness of breath Respiratory: shortness of breath Exam - Constitutional Vitals: Temp Pulse Resp BP Pulse Ox 97 F L 93 H 26 H 163/81 100 04/22/21 21:02 04/22/21 21:16 04/22/21 21:16 04/22/21 21:16 04/22/21 21:29 General appearance: Present: severe distress, well-nourished - EENT Eyes: Present: PERRL ENT: hearing intact, clear oral mucosa - Neck Neck: Present: supple, normal ROM - Respiratory Respiratory effort: normal Respiratory: bilateral: diminished - Cardiovascular Heart Sounds: Present: S1 & S2. Absent: rub, click - Extremities Extremities: pulses symmetrical, No edema Peripheral Pulses: within normal limits - Abdominal General gastrointestinal: Present: soft, non-tender, non-distended, normal bowel sounds Male genitourinary: Present: normal - Integumentary Integumentary: Present: clear, warm, dry - Musculoskeletal Musculoskeletal: gait normal, strength equal bilaterally - Psychiatric Psychiatric: depressed, other - Neurologic Neurologic: CNII-XII intact, moves all extremities, other (Patient is status post cardiac arrest) HEART Score - HEART Score Troponin: Troponin T 0.031 ng/mL (0.00-0.029) H 04/22/21 18:12 Results - Labs CBC & Chem 7: 04/22/21 18:12 04/22/21 18:12 Labs: Laboratory Last Values WBC 14.6 K/mm3 (4.5-11.0) H 04/22/21 18:12 RBC 4.02 M/mm3 (3.65-5.03) 04/22/21 18:12 Hgb 13.4 gm/dl (11.8-15.2) 04/22/21 18:12 Hct 41.0 % (35.5-45.6) 04/22/21 18:12 MCV 102 fl (84-94) H 04/22/21 18:12 MCH 33 pg (28-32) H 04/22/21 18:12 MCHC 33 % (32-34) 04/22/21 18:12 RDW 14.6 % (13.2-15.2) 04/22/21 18:12 Plt Count 189 K/mm3 (140-440) 04/22/21 18:12 Lymph % (Auto) 23.4 % (13.4-35.0) 04/22/21 18:12 [place] % (Auto) 4.7 % (0.0-7.3) 04/22/21 18:12 Eos % (Auto) 0.4 % (0.0-4.3) 04/22/21 18:12 Baso % (Auto) 0.7 % (0.0-1.8) 04/22/21 18:12 Lymph # (Auto) 3.4 K/mm3 (1.2-5.4) 04/22/21 18:12 [place] # (Auto) 0.7 K/mm3 (0.0-0.8) 04/22/21 18:12 Eos # (Auto) 0.1 K/mm3 (0.0-0.4) 04/22/21 18:12 Baso # (Auto) 0.1 K/mm3 (0.0-0.1) 04/22/21 18:12 Seg Neutrophils % 70.8 % (40.0-70.0) H 04/22/21 18:12 Seg Neutrophils # 10.3 K/mm3 (1.8-7.7) H 04/22/21 18:12 PT 14.9 Sec. (12.2-14.9) 04/22/21 18:12 INR 1.17 (0.87-1.13) H 04/22/21 18:12 APTT 36.5 Sec. (24.2-36.6) 04/22/21 18:12 Sodium 140 mmol/L (137-145) 04/22/21 18:12 Potassium 3.8 mmol/L (3.6-5.0) 04/22/21 18:12 Chloride 93.4 mmol/L (98-107) L 04/22/21 18:12 Carbon Dioxide 21 mmol/L (22-30) L 04/22/21 18:12 Anion Gap 29 mmol/L 04/22/21 18:12 BUN 14 mg/dL (9-20) 04/22/21 18:12 Creatinine 1.2 mg/dL (0.8-1.3) 04/22/21 18:12 Estimated GFR > 60 ml/min 04/22/21 18:12 BUN/Creatinine Ratio 12 % 04/22/21 18:12 Glucose 186 mg/dL (75-100) H 04/22/21 18:12 Lactic Acid 5.70 mmol/L (0.7-2.0) H* 04/22/21 20:58 Calcium 9.3 mg/dL (8.4-10.2) 04/22/21 18:12 Troponin T 0.031 ng/mL (0.00-0.029) H 04/22/21 18:12 NT-Pro-B Natriuret Pep 2448 pg/mL (0-900) H 04/22/21 18:12 Triglycerides 107 mg/dL (2-149) 04/22/21 18:12 Cholesterol 136 mg/dL (50-199) 04/22/21 18:12 LDL Cholesterol Direct 78 mg/dL (50-130) 04/22/21 18:12 HDL Cholesterol 58 mg/dL (40-59) 04/22/21 18:12 Cholesterol/HDL Ratio 2.34 % 04/22/21 18:12 Microbiology: Microbiology 04/22/21 18:25 Peripheral/Venous Blood Culture - Preliminary Culture in Progress 04/22/21 18:12 Peripheral/Venous Blood Culture - Preliminary Culture in Progress - Imaging and Cardiology Chest x-ray: report reviewed CT Scan - head: report reviewed Assessment and Plan VTE prophylaxis?: Chemical Plan of care discussed with patient/family: Yes - Patient Problems (1) Cardiac arrest Current Visit: Yes Status: Acute Plan to address problem: Admit the patient to the ICU. Patient is status post intubation. Aspirin 325 mg p.o. daily. Lipitor 80 mg p.o. daily. Heparin drip as per protocol. Continue the home cardiac medication. We do the serial cardiac enzyme. We also do echocardiogram and consult neonatal specialist (2) Dyspnea Current Visit: No Status: Acute Qualifiers: Dyspnea type: unspecified Qualified Code(s): R06.00 - Dyspnea, unspecified Plan to address problem: Patient is status post intubation. DuoNeb by nebulizer every 4 hours as needed. Albuterol via nebulizer every 4 hours as needed. Will consult critical care evaluation. Recheck CBC BMP ABG in the morning (3) HTN (hypertension), benign Current Visit: No Status: Chronic Plan to address problem: Hydralazine 25 mg p.o. 3 times daily. Hydralazine 10 mill IV every 6 hours as needed. Coreg 25 mg p.o. daily .amlodipine 10 mg p.o. daily we continue the home medication. We monitor the blood pressure closely (4) History of CVA (cerebrovascular accident) Current Visit: No Status: Chronic Plan to address problem: Aspirin 325 mg p.o. daily. Lipitor 80 mg p.o. daily. We will continue home medication (5) Hx of CABG Current Visit: No Status: Chronic Plan to address problem: Stable. We will continue the home cardiac medication. We order echocardiogram and consult cardiology evaluation (6) Hyperlipidemia Current Visit: No Status: Chronic Plan to address problem: Lipitor 80 mg p.o. daily. We will recheck the lipid panel. Will consult cardiology (7) Diabetes Current Visit: Yes Status: Acute Plan to address problem: We will put the patient on Humalog sliding scale Accu-Chek every 6 hours with moderate dose coverage. We also consult diabetic education. Recheck BMP in the morning (8) Lactic acidosis Current Visit: Yes Status: Acute Plan to address problem: Patient got 2 to 3 L of fluid bolus in the emergency room. We will put the patient on normal saline at the rate of 75 cc/h because of CHF. Rocephin 2 g IV daily. We do the blood culture. Recheck CBC lactic acid (9) CHF (congestive heart failure) Current Visit: No Status: Chronic Qualifiers: Heart failure type: unspecified Heart failure chronicity: acute on chronic Qualified Code(s): I50.9 - Heart failure, unspecified Plan to address problem: Stable. We will continue the home medication. We also do echocardiogram. Consult cardiology for evaluation (10) DVT prophylaxis Current Visit: No Status: Acute Plan to address problem: Heparin drip as per protocol for DVT prophylaxis. Pepcid 20 mg IV. twice daily for GI prophylaxis. Patient is a full code
[2021-04-22] MEDS ORDERED: HEPARIN 5,000 UNIT/1 ML VIAL SUB-Q SCH (22:00)
[2021-04-22] MEDS: HEPARIN/ 0.45% NACL DRIP 25,000 UNIT/500 ML BAG IV SCH (22:08)
[2021-04-22] MEDS: FAMOTIDINE 20 MG/2 ML INJ IV SCH (22:09)
[2021-04-22] MEDS: LORazepam 2 MG/ML VIAL IV PRN (23:11)
[2021-04-22] MEDS: SODIUM CHLORIDE 0.9% 1000 ML 1,000 ML IV SCH (23:11)
[2021-04-22] MEDS: RANOLAZINE ER 500 MG TAB 12HR PO SCH (23:39)
[2021-04-22] MEDS: TORSEMIDE 10 MG TAB PO SCH (23:40)
[2021-04-23] MEDS: INSULIN LISPRO 100 UNIT/ML SUB-Q SCH ×4 (00:03→17:36)
[2021-04-23] MEDS ORDERED: ATROPINE 0.1% (1 MG/10 ML) CARDIAC SYRINGE ONE (00:24)
[2021-04-23] MEDS ORDERED: EPINEPHrine 1 MG/10 ML SYRINGE ONE (00:24)
[2021-04-23] MEDS ORDERED: SODIUM BICARB 8.4% 50 MEQ/50 ML SYRINGE IV ONE (00:24)
[2021-04-23] MEDS: IPRATROPIUM/ALBUTEROL SULFATE 3 ML AMPUL.NEB IH SCH ×4 (02:40→19:28)
[2021-04-23 03:11] LABS: Basophils % (Auto) 0.3 % (0.0-1.8); Hematocrit 36.4 % (35.5-45.6); Hemoglobin 12.3 gm/dl (11.8-15.2); Lymphocytes # (Auto) 0.5 K/mm3 (1.2-5.4); Lymphocytes % (Auto) 3.6 % (13.4-35.0); Mean Corpuscular HGB Conc 34 % (32-34); Mean Corpuscular Volume 97 fl (84-94); Monocytes % (Auto) 6.7 % (0.0-7.3); Platelet Count 164 K/mm3 (140-440); Red Blood Count 3.76 M/mm3 (3.65-5.03); Red Cell Distribution Width 14.2 % (13.2-15.2)
[2021-04-23 03:22] LABS: Calcium 8.5 mg/dL (8.4-10.2)
[2021-04-23] MEDS: LORazepam 2 MG/ML VIAL IV PRN (03:22)
[2021-04-23] MEDS: hydrALAZINE 20 MG/1 ML INJ IV PRN ×2 (05:34→11:37)
--- NOTE | 2021-04-23 07:58 | Consultation ---
History of Present Illness Consult date: 04/23/21 Requesting physician: KENJI TA Reason for consult: other (Cardiopulmonary arrest with ROSC, Acute hypoxemic resp failure on MVS) History of present illness: This is a 65-year-old male with CAD s/p stents and CABG, DM, CVA, diastolic heart failure, HTN, hypercholesterolemia presented to the emergency department on 04/22 s/p cardiac arrest. Upon arrival of fire department patient was placed in the ED and shocked x2. Upon arrival of EMS patient was found to be in asystole and was given epinephrine x3, Narcan, sodium bicarb x1 and ROSC was achieved. Upon arrival to the emergency department patient again went to cardiac arrest and received 1 round of ACLS with epi nephron x1 and bicarb x1. Work-up in the emergency department revealed leukocytosis, lactic acidosis, elevated troponin, hypochloremia, metabolic acidosis. A critical care consult was called. Patient was seen and examined. Vitals, labs, medications, chart and imaging reviewed. Discussed with [facility], nursing and respiratory staff. Patient is orally intubated on MVS, myoclonic jerks noted. Past History Past Medical History: CAD, diabetes, heart failure, hypertension, hyperlipidemia, stroke Past Surgical History: CABG Medications and Allergies Allergies Allergy/AdvReac Type Severity Reaction Status Date / Time hydrocodone Allergy Unknown Unknown Verified 05/29/19 17:35 acetaminophen [From Percocet] Allergy Unknown Verified 12/22/20 15:37 Iodinated Contrast Media Allergy Itching Verified 12/22/20 15:37 [Iodinated Contrast Media - IV Dye] oxycodone [From Percocet] Allergy Unknown Verified 12/22/20 15:37 Home Medications Medication Instructions Recorded Confirmed Last Taken Type Aspirin [Aspirin BABY CHEW TAB] 81 mg PO QDAY #30 tab.chew 10/04/18 04/25/21 07/19/19 Rx Clopidogrel [Plavix] 75 mg PO QDAY #30 tablet 10/04/18 04/25/21 07/19/19 Rx amLODIPine 10 mg PO QDAY #30 tablet 10/04/18 04/25/21 07/19/19 Rx carvediloL [Coreg] 25 mg PO DAILY #30 tablet 10/04/18 04/25/21 07/19/19 Rx hydrALAZINE [Apresoline TAB] 25 mg PO TID #90 tablet 10/04/18 04/25/21 07/19/19 Rx ISOSORBIDE MONOnitrate [Imdur ER] 60 mg PO BID 05/28/19 04/25/21 07/19/19 History Potassium Chloride [K-Dur] 10 meq PO QDAY 05/28/19 04/25/21 07/19/19 History lisinopriL [Zestril TAB] 5 mg PO QDAY 05/28/19 04/25/21 07/19/19 History raNITIdine HCl [Zantac] 300 mg PO BID 05/28/19 04/25/21 07/19/19 History risperiDONE [RisperDAL] 0.5 mg PO BID 05/28/19 04/25/21 07/19/19 History AtorvaSTATin [Lipitor] 80 mg PO QHS tablet 05/30/19 04/25/21 07/19/19 Rx Nitroglycerin [Nitrostat] 0.4 mg SL .Q5MIN PRN #60 tab 12/08/19 04/25/21 Unknown Rx Ranolazine ER [Ranexa ER] 1,000 mg PO BID #60 tablet 12/08/19 04/25/21 Unknown Rx Temazepam 30 mg PO QHS #7 capsule 12/08/19 04/25/21 Unknown Rx Torsemide [Demadex] 40 mg PO BID #60 12/08/19 04/25/21 Unknown Rx Active Meds: Active Medications Acetaminophen (Acetaminophen 325 Mg Tab) 650 mg PO Q4H PRN PRN Reason: Pain MILD(1-3)/Fever >100.5/GIORDANO Albuterol (Albuterol 2.5 Mg/3 Ml Nebu) 2.5 mg IH Q3HRT PRN PRN Reason: Shortness Of Breath Albuterol/Ipratropium (Ipratropium/Albuterol Sulfate 3 Ml Ampul.Neb) 1 ampul IH Q6HRT [facility] Last Admin: 04/23/21 02:40 Dose: 1 ampul Documented by: Amlodipine Besylate (Amlodipine 10 Mg Tab) 10 mg PO QDAY [facility] Aspirin (Aspirin Ec 325 Mg Tab) 325 mg PO QDAY [facility] Atorvastatin Calcium (Atorvastatin 40 Mg Tab) 80 mg PO QHS [facility] Last Admin: 04/22/21 23:40 Dose: Not Given Documented by: Carvedilol (Carvedilol 25 Mg Tab) 25 mg PO DAILY@0800 [facility] Clopidogrel Bisulfate (Clopidogrel 75 Mg Tab) 75 mg PO QDAY [facility] Dextrose (Dextrose 50% In Water (25gm) 50 Ml Syringe) 0 ml IV Q30MIN PRN; Protocol PRN Reason: Hypoglycemia Famotidine (Famotidine 20 Mg/2 Ml Inj) 20 mg IV BID [facility] Last Admin: 04/22/21 22:09 Dose: 20 mg Documented by: Heparin Sodium (Porcine) (Heparin 10,000 Units/10 Ml Vial) 4,000 unit 40 unit/kg (4000 unit) IV Q6H PRN PRN Reason: Anti-Xa Assay < 0.1 units/ml Hydralazine HCl (Hydralazine 25 Mg Tab) 25 mg PO TID [facility] Hydralazine HCl (Hydralazine 20 Mg/1 Ml Inj) 10 mg IV Q6H PRN PRN Reason: htn Last Admin: 04/23/21 05:34 Dose: 10 mg Documented by: Propofol (Diprivan 10 Mg/Ml) 1,000 mg in 100 mls @ 3 mls/hr IV TITR [facility]; Protoc ol Last Admin: 04/23/21 07:13 Dose: 35 mcg/kg/min, 21 mls/hr Documented by: Ceftriaxone Sodium (Rocephin/Ns 2 Gm/100 Ml) 2 gm in 100 mls @ 200 mls/hr IV Q24HR [facility]; Protocol Heparin Sodium/Sodium Chloride (Heparin/ 0.45% Nacl-25,000 Unit/500 Ml) 25,000 unit in 500 mls @ 20 mls/hr IV TITRATE [facility]; Protocol Last Titration: 04/23/21 05:05 Dose: 1,000 units/hr, 20 mls/hr Documented by: Sodium Chloride (Nacl 0.9% 1000 Ml) 1,000 mls @ 75 mls/hr IV DIRECT [facility] Last Admin: 04/22/21 23:11 Dose: 75 mls/hr Documented by: Insulin Human Lispro (Insulin Lispro 100 Unit/Ml) 0 unit SUB-Q Q6HR [facility]; Protocol Last Admin: 04/23/21 05:39 Dose: Not Given Documented by: Isosorbide Mononitrate (Isosorbide Mononitrate Er 60 Mg Tab) 60 mg PO BID [facility] Last Admin: 04/22/21 23:40 Dose: Not Given Documented by: Lisinopril (Lisinopril 5 Mg Tab) 5 mg PO QDAY [facility] Lorazepam (Lorazepam 2 Mg/Ml Vial) 2 mg IV Q4H PRN PRN Reason: Seizures Last Admin: 04/23/21 03:22 Dose: 2 mg Documented by: Nitroglycerin (Nitroglycerin 0.4 Mg Tab Subl) 0.4 mg SL .Q5MIN PRN PRN Reason: Chest Pain Ondansetron HCl (Ondansetron 4 Mg/2 Ml Inj) 4 mg IV Q8H PRN PRN Reason: Nausea And Vomiting Ranolazine (Ranolazine Er 500 Mg Tab 12hr) 1,000 mg PO BID [facility] Last Admin: 04/22/21 23:39 Dose: Not Given Documented by: Sodium Chloride (Sodium Chloride 0.9% 10 Ml Flush Syringe) 10 ml IV BID [facility] Last Admin: 04/23/21 00:03 Dose: 10 ml Documented by: Sodium Chloride (Sodium Chloride 0.9% 10 Ml Flush Syringe) 10 ml IV PRN PRN PRN Reason: LINE FLUSH Torsemide (Torsemide 10 Mg Tab) 40 mg PO BID [facility] Last Admin: 04/22/21 23:40 Dose: Not Given Documented by: Physical Examination Vital signs: Vital Signs Pulse Resp BP Pulse Ox 120 H 30 H 144/83 100 04/22/21 17:52 04/22/21 17:52 04/22/21 17:52 04/22/21 17:52 Constitutional: no acute distress, other (elderly obese male without significant patient-ventilator dyssynchrony) Eyes: non-icteric ENT: oropharynx moist, oropharyngeal exudate pre (copious), other (ETT 24 cm PERNELL) Neck: supple, no lymphadenopathy, no JVD Effort: normal Ascultation: Bilateral: diminished breath sounds, rhonchi (scant) Percussion: Bilateral: not dull Cardiovascular: regular rate and rhythm Gastrointestinal: normoactive bowel sounds, soft, non-tender, non-distended (protuberant) Integumentary: other (scars in abdomen and lower extremities) Extremities: no cyanosis, no edema, pulses normal, no ischemia or petechiae Neurologic: pupils equal and round (pin- point), unable to assess Psychiatric: other (unable to assess re: AMS) Results - Laboratory Findings CBC and BMP: 04/26/21 04:49 04/27/21 05:01 ABG ABG pH 7.536 (7.320-7.450) H 04/23/21 03:54 POC ABG pCO2 31.1 mmHg (32.0-48.0) L 04/23/21 03:54 POC ABG pO2 112.7 mmHg (83-108) H 04/23/21 03:54 POC ABG HCO3 25.8 04/23/21 03:54 ABG O2 Saturation 98.7 (0-100) 04/23/21 03:54 PT/INR, D-dimer PT 14.9 Sec. (12.2-14.9) 04/22/21 18:12 INR 1.17 (0.87-1.13) H 04/22/21 18:12 Abnormal lab findings: Abnormal Labs 04/22/21 04/22/21 04/22/21 18:12 18:12 18:12 WBC 14.6 H MCV 102 H MCH 33 H Lymph % (Auto) Lymph # (Auto) [place] # (Auto) Seg Neutrophils % 70.8 H Seg Neutrophils # 10.3 H INR 1.17 H ABG pH POC ABG pCO2 POC ABG pO2 ABG Potassium ABG Glucose Carboxyhemoglobin Chloride 93.4 L Carbon Dioxide 21 L BUN Creatinine Glucose 186 H POC Glucose Lactic Acid Troponin T 0.031 H NT-Pro-B Natriuret Pep 2448 H Arterial Blood Glucose Arterial Blood Ionized Calcium 04/22/21 04/22/21 04/22/21 18:12 19:17 20:58 WBC MCV MCH Lymph % (Auto) Lymph # (Auto) [place] # (Auto) Seg Neutrophils % Seg Neutrophils # INR ABG pH POC ABG pCO2 POC ABG pO2 ABG Potassium ABG Glucose Carboxyhemoglobin Chloride Carbon Dioxide BUN Creatinine Glucose POC Glucose Lactic Acid 11.00 H* 9.50 H* 5.70 H* Troponin T NT-Pro-B Natriuret Pep Arterial Blood Glucose Arterial Blood Ionized Calcium 04/22/21 04/22/21 04/22/21 20:58 21:10 23:03 WBC MCV MCH Lymph % (Auto) Lymph # (Auto) [place] # (Auto) Seg Neutrophils % Seg Neutrophils # INR ABG pH 7.492 H POC ABG pCO2 30.4 L POC ABG pO2 80.3 L ABG Potassium 3.2 L ABG Glucose 202 H Carboxyhemoglobin 1.6 H Chloride Carbon Dioxide BUN Creatinine Glucose POC Glucose 175 H Lactic Acid Troponin T 0.363 H* D NT-Pro-B Natriuret Pep Arterial Blood Glucose 202 H Arterial Blood Ionized Calcium 4.2 L 04/22/21 04/23/21 04/23/21 23:40 02:36 02:36 WBC 14.6 H MCV 97 H MCH 33 H Lymph % (Auto) 3.6 L Lymph # (Auto) 0.5 L [place] # (Auto) 1.0 H Seg Neutrophils % 89.4 H Seg Neutrophils # 13.0 H INR ABG pH POC ABG pCO2 POC ABG pO2 ABG Potassium ABG Glucose Carboxyhemoglobin Chloride Carbon Dioxide BUN Creatinine Glucose POC Glucose Lactic Acid 3.60 H* Troponin T 1.020 H* D NT-Pro-B Natriuret Pep Arterial Blood Glucose Arterial Blood Ionized Calcium 04/23/21 04/23/21 04/23/21 02:36 03:54 05:22 WBC MCV MCH Lymph % (Auto) Lymph # (Auto) [place] # (Auto) Seg Neutrophils % Seg Neutrophils # INR ABG pH 7.536 H POC ABG pCO2 31.1 L POC ABG pO2 112.7 H ABG Potassium 3.3 L ABG Glucose 129 H Carboxyhemoglobin Chloride 97.4 L Carbon Dioxide BUN 21 H Creatinine 1.6 H Glucose 145 H POC Glucose 123 H Lactic Acid Troponin T NT-Pro-B Natriuret Pep Arterial Blood Glucose 129 H Arterial Blood Ionized Calcium 4.1 L Assessment and Plan Cardiac arrest with ROSC Acute hypoxemic respiratory failure Acute kidney injury secondary to vasomotor nephropathy COVID-19 PUI NSTEMI Acute Encephalopathy Myoclonic jerks vs Seizures Lactic acidosis Elevated D-dimer CAD s/p CABG x3 Hypertension Hyperlipidemia CVA Diabetes type II - prn vasopressors for target MAP > 65 mmHg - Wean supplemental oxygen for target O2 sat's > 90% acutely - VAP bundle addressed -Lung protective strategies - continue bronchodilators with pulmonary hygiene per RT - wean per pulmonary driven protocols otherwise - Daily SAT and SBT assessment as tolerated - accuchecks with glycemic control per SSI (While critically ill target blood glucose of 140-180 mg/dL; avoid hypoglycemia) - sedation prn for target RASS 0 to -1 - avoid nephrotoxins, renally dose all medications - continue to avoid benzodiazepines, reduce the possibility of delirium -Seizure prophylaxis ( Keppra) , Neurology consult - prn analgesia per CPOT score - Maintenance of sleep-wake cycle, avoid delirium - enteric nutritional support once OGT placement is confirmed. Nutrition consult - G.I. & VTE prophylaxis -Hold Torsemide and Lisinopril in the setting of DELMI -Avoid nephrotoxins, adjsut all medications for CrCL, GFR - PT/OT/ROM exercises - mobility protocols for pressure ulcer prevention - Monitor hemodynamics closely -MRI brain pending -EEG pending -Echocardiogram pending -Renal ultrasound pending - continue other care per attending / other consultants - Continue contact and airborne isolation until COVID results are available CONDITION: CRITICAL PROGNOSIS: GUARDED CODE STATUS: FULL CODE The high probability of a clinically significant, sudden or life-threatening deterioration of the [respiratory, cardiovascular & neurologic] system(s) required my full and direct attention, intervention and personal management. The aggregate critical care time was [56] minutes without overlap. Time includes spent on; [x] Data Review and interpretation [x] Patient assessment and monitoring of vital signs [x] Documentation [x] Medication orders and management
--- NOTE | 2021-04-23 09:12 | Consultation ---
History of Present Illness Consult date: 04/23/21 Reason for Consult: Post cardiac arrest at home History of present illness: Cardiac arrest History of present illness: 65-year-old male with past medical history of CAD status post stents and CABG, diabetes, CVA, CHF (EF 40-45%), hypertension, hypercholesterolemia was brought to the emergency room in cardiac arrest. Patient was apparently drinking when he began to complain of some difficulty breathing and then collapsed. No bystander CPR was performed. When the fire truck arrived, AED was placed and shock was advised x2. Upon medic arrival, patient was in asystole. He was given epi x3, Narcan, sodium bicarb x1. Patient did achieve ROSC. Upon ED arrival patient had a pulse present which he soon lost. Chest compressions were started again, patient received 1 round of ACLS here in the ED, receiving epi and bicarb x1. With the next pulse check, patient did have and has sustained pulses. In the emergency room patient is intubated. Patient WBC is 14.6. Lactic acid is 11.00 and troponin is 0.363 Ct brain is suggestive for remote multi infarct Past History Past Medical History: CAD, diabetes, heart failure, hypertension, hyperlipidemia, stroke Past Surgical History: CABG Medications and Allergies Allergies Allergy/AdvReac Type Severity Reaction Status Date / Time hydrocodone Allergy Unknown Unknown Verified 05/29/19 17:35 acetaminophen [From Percocet] Allergy Unknown Verified 12/22/20 15:37 Iodinated Contrast Media Allergy Itching Verified 12/22/20 15:37 [Iodinated Contrast Media - IV Dye] oxycodone [From Percocet] Allergy Unknown Verified 12/22/20 15:37 Home Medications Medication Instructions Recorded Confirmed Last Taken Type Aspirin [Aspirin BABY CHEW TAB] 81 mg PO QDAY #30 tab.chew 10/04/18 12/08/19 Rx Clopidogrel [Plavix] 75 mg PO QDAY #30 tablet 10/04/18 12/08/19 07/19/19 Rx amLODIPine 10 mg PO QDAY #30 tablet 10/04/18 12/08/19 07/19/19 Rx carvediloL [Coreg] 25 mg PO DAILY #30 tablet 10/04/18 12/08/19 07/19/19 Rx hydrALAZINE [Apresoline TAB] 25 mg PO TID #90 tablet 10/04/18 12/08/19 07/19/19 Rx ISOSORBIDE MONOnitrate [Imdur ER] 60 mg PO BID 05/28/19 12/08/19 07/19/19 Histor y Potassium Chloride [K-Dur] 10 meq PO QDAY 05/28/19 12/08/19 07/19/19 History lisinopriL [Zestril TAB] 5 mg PO QDAY 05/28/19 12/08/19 07/19/19 History raNITIdine HCl [Zantac] 300 mg PO BID 05/28/19 12/08/19 07/19/19 History risperiDONE [RisperDAL] 0.5 mg PO BID 05/28/19 12/08/19 07/19/19 History AtorvaSTATin [Lipitor] 80 mg PO QHS tablet 05/30/19 12/08/19 07/19/19 Rx Nitroglycerin [Nitrostat] 0.4 mg SL .Q5MIN PRN #60 tab 12/08/19 Unknown Rx Ranolazine ER [Ranexa ER] 1,000 mg PO BID #60 tablet 12/08/19 Unknown Rx Temazepam 30 mg PO QHS #7 capsule 12/08/19 Unknown Rx Torsemide [Demadex] 40 mg PO BID #60 12/08/19 Unknown Rx Active Meds: Active Medications Propofol (Diprivan 10 Mg/Ml) 1,000 mg in 100 mls @ 3 mls/hr IV TITR [facility]; Protocol Last Titration: 04/22/21 21:15 Dose: 15 mcg/kg/min, 9 mls/hr Documented by: Vancomycin HCl 2,000 mg/ (Sodium Chloride) 540 mls @ 270 mls/hr IV ONCE ONE; Protocol Stop: 04/22/21 22:17 Review of Systems Cardiovascular: chest pain, shortness of breath Respiratory: shortness of breath Past History Past Medical History: CAD, diabetes, heart failure, hypertension, hyperlipidemia, stroke Past Surgical History: CABG Medications and Allergies Allergies Allergy/AdvReac Type Severity Reaction Status Date / Time hydrocodone Allergy Unknown Unknown Verified 05/29/19 17:35 acetaminophen [From Percocet] Allergy Unknown Verified 12/22/20 15:37 Iodinated Contrast Media Allergy Itching Verified 12/22/20 15:37 [Iodinated Contrast Media - IV Dye] oxycodone [From Percocet] Allergy Unknown Verified 12/22/20 15:37 Home Medications Medication Instructions Recorded Confirmed Last Taken Type Aspirin [Aspirin BABY CHEW TAB] 81 mg PO QDAY #30 tab.chew 10/04/18 12/08/19 07/19/19 Rx Clopidogrel [Plavix] 75 mg PO QDAY #30 tablet 10/04/18 12/08/19 07/19/19 Rx amLODIPine 10 mg PO QDAY #30 tablet 10/04/18 12/08/19 07/19/19 Rx carvediloL [Coreg] 25 mg PO DAILY #30 tablet 10/04/18 12/08/19 07/19/19 Rx hydrALAZINE [Apresoline TAB] 25 mg PO TID #90 tablet 10/04/18 12/08/19 07/19/19 Rx ISOSORBIDE MONOnitrate [Imdur ER] 60 mg PO BID 05/28/19 12/08/19 07/19/19 H istory Potassium Chloride [K-Dur] 10 meq PO QDAY 05/28/19 12/08/19 07/19/19 History lisinopriL [Zestril TAB] 5 mg PO QDAY 05/28/19 12/08/19 07/19/19 History raNITIdine HCl [Zantac] 300 mg PO BID 05/28/19 12/08/19 07/19/19 History risperiDONE [RisperDAL] 0.5 mg PO BID 05/28/19 12/08/19 07/19/19 History AtorvaSTATin [Lipitor] 80 mg PO QHS tablet 05/30/19 12/08/19 07/19/19 Rx Nitroglycerin [Nitrostat] 0.4 mg SL .Q5MIN PRN #60 tab 12/08/19 Unknown Rx Ranolazine ER [Ranexa ER] 1,000 mg PO BID #60 tablet 12/08/19 Unknown Rx Temazepam 30 mg PO QHS #7 capsule 12/08/19 Unknown Rx Torsemide [Demadex] 40 mg PO BID #60 12/08/19 Unknown Rx Active Meds: Active Medications Acetaminophen (Acetaminophen 325 Mg Tab) 650 mg PO Q4H PRN PRN Reason: Pain MILD(1-3)/Fever >100.5/[place] Albuterol (Albuterol 2.5 Mg/3 Ml Nebu) 2.5 mg IH Q3HRT PRN PRN Reason: Shortness Of Breath Albuterol/Ipratropium (Ipratropium/Albuterol Sulfate 3 Ml Ampul.Neb) 1 ampul IH Q6HRT [facility] Last Admin: 04/23/21 02:40 Dose: 1 ampul Documented by: Amlodipine Besylate (Amlodipine 10 Mg Tab) 10 mg PO QDAY [facility] Aspirin (Aspirin Ec 325 Mg Tab) 325 mg PO QDAY [facility] Atorvastatin Calcium (Atorvastatin 40 Mg Tab) 80 mg PO QHS [facility] Last Admin: 04/22/21 23:40 Dose: Not Given Documented by: Carvedilol (Carvedilol 25 Mg Tab) 25 mg PO DAILY@0800 [facility] Clopidogrel Bisulfate (Clopidogrel 75 Mg Tab) 75 mg PO QDAY [facility] Dextrose (Dextrose 50% In Water (25gm) 50 Ml Syringe) 0 ml IV Q30MIN PRN; Protocol PRN Reason: Hypoglycemia Famotidine (Famotidine 20 Mg/2 Ml Inj) 20 mg IV BID [facility] Last Admin: 04/22/21 22:09 Dose: 20 mg Documented by: Heparin Sodium (Porcine) (Heparin 10,000 Units/10 Ml Vial) 4,000 unit 40 unit/kg (4000 unit) IV Q6H PRN PRN Reason: Anti-Xa Assay < 0.1 units/ml Hydralazine HCl (Hydralazine 25 Mg Tab) 25 mg PO TID [facility] Hydralazine HCl (Hydralazine 20 Mg/1 Ml Inj) 10 mg IV Q6H PRN PRN Reason: htn Last Admin: 04/23/21 05:34 Dose: 10 mg Documented by: Propofol (Diprivan 10 Mg/Ml) 1,000 mg in 100 mls @ 3 mls/hr IV TITR [facility]; Protocol Last Admin: 04/23/21 07:13 Dose: 35 mcg/kg/min, 21 mls/hr Documented by: Ceftriaxone Sodium (Rocephin/Ns 2 Gm/100 Ml) 2 gm in 100 mls @ 200 mls/hr IV Q24HR [facility]; Protocol Heparin Sodium/Sodium Chloride (Heparin/ 0.45% Nacl-25,000 Unit/500 Ml) 25,000 unit in 500 mls @ 20 mls/hr IV TITRATE [facility]; Protocol Last Titration: 04/23/21 05:05 Dose: 1,000 units/hr, 20 mls/hr Documented by: Sodium Chloride (Nacl 0.9% 1000 Ml) 1,000 mls @ 75 mls/hr IV DIRECT [facility] Last Admin: 04/22/21 23:11 Dose: 75 mls/hr Documented by: Insulin Human Lispro (Insulin Lispro 100 Unit/Ml) 0 unit SUB-Q Q6HR [facility]; Protocol Last Admin: 04/23/21 05:39 Dose: Not Given Documented by: Isosorbide Mononitrate (Isosorbide Mononitrate Er 60 Mg Tab) 60 mg PO BID [facility] Last Admin: 04/22/21 23:40 Dose: Not Given Documented by: Lisinopril (Lisinopril 5 Mg Tab) 5 mg PO QDAY [facility] Lorazepam (Lorazepam 2 Mg/Ml Vial) 2 mg IV Q4H PRN PRN Reason: Seizures Last Admin: 04/23/21 03:22 Dose: 2 mg Documented by: Nitroglycerin (Nitroglycerin 0.4 Mg Tab Subl) 0.4 mg SL .Q5MIN PRN PRN Reason: Chest Pain Ondansetron HCl (Ondansetron 4 Mg/2 Ml Inj) 4 mg IV Q8H PRN PRN Reason: Nausea And Vomiting Ranolazine (Ranolazine Er 500 Mg Tab 12hr) 1,000 mg PO BID [facility] Last Admin: 04/22/21 23:39 Dose: Not Given Documented by: Sodium Chloride (Sodium Chloride 0.9% 10 Ml Flush Syringe) 10 ml IV BID [facility] Last Admin: 04/23/21 00:03 Dose: 10 ml Documented by: Sodium Chloride (Sodium Chloride 0.9% 10 Ml Flush Syringe) 10 ml IV PRN PRN PRN Reason: LINE FLUSH Torsemide (Torsemide 10 Mg Tab) 40 mg PO BID [facility] Last Admin: 04/22/21 23:40 Dose: Not Given Documented by: Physical Examination - Vital Signs Vital Signs: Vital Signs Pulse Resp BP Pulse Ox 120 H 30 H 144/83 100 04/22/21 17:52 04/22/21 17:52 04/22/21 17:52 04/22/21 17:52 - Constitutional General appearance: comfortable, other (intubated sedated on propofol ) - EENT EENT: Present: other (pupils constricted pat reactive, no corneal no EOM , weak gag noted by the nurse !! ) - Respiratory Respiratory: Present: chest non-tender, lungs clear, normal breath sounds, rhonchi - Cardiovascular Cardiovascular: Present: regular rate, normal S1, normal S2 Extremities: Present: no peripheral edema bilatateraly, no clubbing, cyanosis - Gastrointestinal Gastrointestinal: Present: normoactive bowel sounds - Integumentary Integumentary: Present: normal - Neurologic Speech examination: other Detailed motor examination: other (no response to stimuli , intermittent myoclonus is noted generalized) Results - Laboratory Findings CBC and BMP: 04/23/21 02:36 04/23/21 02:36 Abnormal Lab Findings: Abnormal Labs 04/22/21 04/22/21 04/22/21 18:12 18:12 18:12 WBC 14.6 H MCV 102 H MCH 33 H Lymph % (Auto) Lymph # (Auto) Branch # (Auto) Seg Neutrophils % 70.8 H Seg Neutrophils # 10.3 H INR 1.17 H ABG pH POC ABG pCO2 POC ABG pO2 ABG Potassium ABG Glucose Carboxyhemoglobin Chloride 93.4 L Carbon Dioxide 21 L BUN Creatinine Glucose 186 H POC Glucose Lactic Acid Troponin T 0.031 H NT-Pro-B Natriuret Pep 2448 H Arterial Blood Glucose Arterial Blood Ionized Calcium 04/22/21 04/22/21 04/22/21 18:12 19:17 20:58 WBC MCV MCH Lymph % (Auto) Lymph # (Auto) Branch # (Auto) Seg Neutrophils % Seg Neutrophils # INR ABG pH POC ABG pCO2 POC ABG pO2 ABG Potassium ABG Glucose Carboxyhemoglobin Chloride Carbon Dioxide BUN Creatinine Glucose POC Glucose Lactic Acid 11.00 H* 9.50 H* 5.70 H* Troponin T NT-Pro-B Natriuret Pep Arterial Blood Glucose Arterial Blood Ionized Calcium 04/22/21 04/22/21 04/22/21 20:58 21:10 23:03 WBC MCV MCH Lymph % (Auto) Lymph # (Auto) Branch # (Auto) Seg Neutrophils % Seg Neutrophils # INR ABG pH 7.492 H POC ABG pCO2 30.4 L POC ABG pO2 80.3 L ABG Potassium 3.2 L ABG Glucose 202 H Carboxyhemoglobin 1.6 H Chloride Carbon Dioxide BUN Creatinine Glucose POC Glucose 175 H Lactic Acid Troponin T 0.363 H* D NT-Pro-B Natriuret Pep Arterial Blood Glucose 202 H Arterial Blood Ionized Calcium 4.2 L 04/22/21 04/23/21 04/23/21 23:40 02:36 02:36 WBC 14.6 H MCV 97 H MCH 33 H Lymph % (Auto) 3.6 L Lymph # (Auto) 0.5 L Branch # (Auto) 1.0 H Seg Neutrophils % 89.4 H Seg Neutrophils # 13.0 H INR ABG pH POC ABG pCO2 POC ABG pO2 ABG Potassium ABG Glucose Carboxyhemoglobin Chloride Carbon Dioxide BUN Creatinine Glucose POC Glucose Lactic Acid 3.60 H* Troponin T 1.020 H* D NT-Pro-B Natriuret Pep Arterial Blood Glucose Arterial Blood Ionized Calcium 04/23/21 04/23/21 04/23/21 02:36 03:54 05:22 WBC MCV MCH Lymph % (Auto) Lymph # (Auto) Branch # (Auto) Seg Neutrophils % Seg Neutrophils # INR ABG pH 7.536 H POC ABG pCO2 31.1 L POC ABG pO2 112.7 H ABG Potassium 3.3 L ABG Glucose 129 H Carboxyhemoglobin Chloride 97.4 L Carbon Dioxide BUN 21 H Creatinine 1.6 H Glucose 145 H POC Glucose 123 H Lactic Acid Troponin T NT-Pro-B Natriuret Pep Arterial Blood Glucose 129 H Arterial Blood Ionized Calcium 4.1 L Assessment and Plan Assessment and Plan VTE prophylaxis?: Chemical Plan of care discussed with patient/family: Yes - Patient Problems # Cardiac arrest with possible anoxic brain injury -status post cardiac arrest at home with length of time in [place] is unknown -Elevated cardiac enzymes -Admit the patient to the ICU. - Patient is status post intubation. - Aspirin 325 mg p.o. daily. - Lipitor 80 mg p.o. daily. - Heparin drip as per protocol. - Continue the home cardiac medication. - echocardiogram is pending # Possible myoclonic jerks --s/p cardiac arrest with resucitation --Possible significant brain injury -R/O Seizure -Keppra 750 mg Iv BID -Consider MRI brain AM -EEG # History of CVA (cerebrovascular accident) Aspirin 325 mg p.o. daily. Lipitor 80 mg p.o. daily. We will continue home medication On heparin drip CT brain is suggestive of multiple emboli ? MRI AM ? AF R/O # HTN (hypertension), benign Hydralazine 25 mg p.o. 3 times daily. # Hx of CABG Stable. We will continue the home cardiac medication. We order echocardiogram #Hyperlipidemia Lipitor 80 mg p.o. daily. We will recheck the lipid panel,LDL#78 # Diabetes - sliding scale -A1C # Lactic acidosis -Patient got 2 to 3 L of fluid bolus in the emergency room. treat underlying infection # CHF (congestive heart failure) Stable We will continue the home medication. We also do echocardiogram. #DVT prophylaxis Heparin drip as per protocol for DVT prophylaxis. Pepcid 20 mg IV. twice daily for GI prophylaxis. Patient is a full code PLAN 1-Cut down sedation as possible now on prpofol 2- R?O seizure 3- keppra 750 mg IV bid 4- Brain MRI r/o multi infarct and or anoxic brain injury 5-EEG 6-Echo cardiogram 7- serial cardiac enzymes and heparine will follow Over all prognosis is quarded to poor
[2021-04-23] MEDS ORDERED: LIPASE 10,500/PROTEASE 25,000/AMYLASE 43,750 (UNITS) DR CAP FEEDTUBE PRN (09:33)
[2021-04-23] MEDS ORDERED: SIMPLE SYRUP 15 ML FEEDTUBE PRN ×2 (09:33)
[2021-04-23] MEDS ORDERED: SODIUM BICARBONATE 325 MG TAB FEEDTUBE PRN (09:33)
--- NOTE | 2021-04-23 09:37 | Consultation ---
History of Present Illness Consult date: 04/23/21 Consult reason: cardiac arrest History of present illness: 65-year-old -[place] male with a history of hypertension coronary artery disease type 2 diabetes mellitus and a previous CVA is brought into the hospital after a cardiopulmonary arrest out in the field with bystanders performing initial CPR. EMT on the scene applied AED which 2 advised shocks given. Patient in the emergency room intubated unresponsive currently admitted to the intensive care unit. Past History Past Medical History: CAD, diabetes, heart failure, hypertension, hyperlipidemia, stroke Past Surgical History: CABG Medications and Allergies Allergies Allergy/AdvReac Type Severity Reaction Status Date / Time hydrocodone Allergy Unknown Unknown Verified 05/29/19 17:35 acetaminophen [From Percocet] Allergy Unknown Verified 12/22/20 15:37 Iodinated Contrast Media Allergy Itching Verified 12/22/20 15:37 [Iodinated Contrast Media - IV Dye] oxycodone [From Percocet] Allergy Unknown Verified 12/22/20 15:37 Home Medications Medication Instructions Recorded Confirmed Last Taken Type Aspirin [Aspirin BABY CHEW TAB] 81 mg PO QDAY #30 tab.chew 10/04/18 12/08/19 07/19/19 Rx Clopidogrel [Plavix] 75 mg PO QDAY #30 tablet 10/04/18 12/08/19 07/19/19 Rx amLODIPine 10 mg PO QDAY #30 tablet 10/04/18 12/08/19 07/19/19 Rx carvediloL [Coreg] 25 mg PO DAILY #30 tablet 10/04/18 12/08/19 07/19/19 Rx hydrALAZINE [Apresoline TAB] 25 mg PO TID #90 tablet 10/04/18 12/08/19 07/19/19 Rx ISOSORBIDE MONOnitrate [Imdur ER] 60 mg PO BID 05/28/19 12/08/19 07/19/19 History Potassium Chloride [K-Dur] 10 meq PO QDAY 05/28/19 12/08/19 07/19/19 History lisinopriL [Zestril TAB] 5 mg PO QDAY 05/28/19 12/08/19 07/19/19 History raNITIdine HCl [Zantac] 300 mg PO BID 05/28/19 12/08/19 07/19/19 History risperiDONE [RisperDAL] 0.5 mg PO BID 05/28/19 12/08/19 07/19/19 History AtorvaSTATin [Lipitor] 80 mg PO QHS tablet 05/30/19 12/08/19 07/19/19 Rx Nitroglycerin [Nitrostat] 0.4 mg SL .Q5MIN PRN #60 tab 12/08/19 Unknown Rx Ranolazine ER [Ranexa ER] 1,000 mg PO BID #60 tablet 12/08/19 Unknown Rx Temazepam 30 mg PO QHS #7 capsule 12/08/19 Unknown Rx Torsemide [Demadex] 40 mg PO BID #60 12/08/19 Unknown Rx Active Meds: Active Medications Acetaminophen (Acetaminophen 325 Mg Tab) 650 mg PO Q4H PRN PRN Reason: Pain MILD(1-3)/Fever >100.5/[place] Albuterol (Albuterol 2.5 Mg/3 Ml Nebu) 2.5 mg IH Q3HRT PRN PRN Reason: Shortness Of Breath Albuterol/Ipratropium (Ipratropium/Albuterol Sulfate 3 Ml Ampul.Neb) 1 ampul IH Q6HRT [facility] Last Admin: 04/23/21 09:13 Dose: 1 ampul Documented by: Amlodipine Besylate (Amlodipine 10 Mg Tab) 10 mg PO QDAY [facility] Lipase/Protease/Amylase (Lipase 10,500/Protease 25,000/Amylase 43,750 (Units) Dr Machado) 1 each FEEDTUBE PRN PRN PRN Reason: For Clogged Feeding Tube Aspirin (Aspirin Ec 325 Mg Tab) 325 mg PO QDAY [facility] Atorvastatin Calcium (Atorvastatin 40 Mg Tab) 80 mg PO QHS [facility] Last Admin: 04/22/21 23:40 Dose: Not Given Documented by: Carvedilol (Carvedilol 25 Mg Tab) 25 mg PO DAILY@0800 [facility] Clopidogrel Bisulfate (Clopidogrel 75 Mg Tab) 75 mg PO QDAY [facility] Dextrose (Dextrose 50% In Water (25gm) 50 Ml Syringe) 0 ml IV Q30MIN PRN; Protocol PRN Reason: Hypoglycemia Famotidine (Famotidine 20 Mg/2 Ml Inj) 20 mg IV BID [facility] Last Admin: 04/22/21 22:09 Dose: 20 mg Documented by: Heparin Sodium (Porcine) (Heparin 10,000 Units/10 Ml Vial) 4,000 unit 40 unit/kg (4000 unit) IV Q6H PRN PRN Reason: Anti-Xa Assay < 0.1 units/ml Hydralazine HCl (Hydralazine 25 Mg Tab) 25 mg PO TID [facility] Hydralazine HCl (Hydralazine 20 Mg/1 Ml Inj) 10 mg IV Q6H PRN PRN Reason: htn Last Admin: 04/23/21 05:34 Dose: 10 mg Documented by: Propofol (Diprivan 10 Mg/Ml) 1,000 mg in 100 mls @ 3 mls/hr IV TITR [facility]; Protocol Last Admin: 04/23/21 07:13 Dose: 35 mcg/kg/min, 21 mls/hr Documented by: Ceftriaxone Sodium (Rocephin/Ns 2 Gm/100 Ml) 2 gm in 100 mls @ 200 mls/hr IV Q24HR [facility]; Protocol Heparin Sodium/Sodium Chloride (Heparin/ 0.45% Nacl-25,000 Unit/500 Ml) 25,000 unit in 500 mls @ 20 mls/hr IV TITRATE [facility]; Protocol Last Titration: 04/23/21 05:05 Dose: 1,000 units/hr, 20 mls/hr Documented by: Sodium Chloride (Nacl 0.9% 1000 Ml) 1,000 mls @ 75 mls/hr IV DIRECT [facility] Last Admin: 04/22/21 23:11 Dose: 75 mls/hr Documented by: Insulin Human Lispro (Insulin Lispro 100 Unit/Ml) 0 unit SUB-Q Q6HR [facility]; Protocol Last Admin: 04/23/21 05:39 Dose: Not Given Documented by: Isosorbide Mononitrate (Isosorbide Mononitrate Er 60 Mg Tab) 60 mg PO BID [facility] Last Admin: 04/22/21 23:40 Dose: Not Given Documented by: Lisinopril (Lisinopril 5 Mg Tab) 5 mg PO QDAY [facility] Lorazepam (Lorazepam 2 Mg/Ml Vial) 2 mg IV Q4H PRN PRN Reason: Seizures Last Admin: 04/23/21 03:22 Dose: 2 mg Documented by: Nitroglycerin (Nitroglycerin 0.4 Mg Tab Subl) 0.4 mg SL .Q5MIN PRN PRN Reason: Chest Pain Ondansetron HCl (Ondansetron 4 Mg/2 Ml Inj) 4 mg IV Q8H PRN PRN Reason: Nausea And Vomiting Ranolazine (Ranolazine Er 500 Mg Tab 12hr) 1,000 mg PO BID [facility] Last Admin: 04/22/21 23:39 Dose: Not Given Documented by: Simple Syrup (Simple Syrup 15 Ml) 15 ml FEEDTUBE PRN PRN PRN Reason: Hypoglycemia Simple Syrup (Simple Syrup 15 Ml) 30 ml FEEDTUBE PRN PRN PRN Reason: Hypoglycemia Sodium Bicarbonate (Sodium Bicarbonate 325 Mg Tab) 325 mg FEEDTUBE PRN PRN PRN Reason: For Clogged Feeding Tube Sodium Chloride (Sodium Chloride 0.9% 10 Ml Flush Syringe) 10 ml IV BID [facility] Last Admin: 04/23/21 00:03 Dose: 10 ml Documented by: Sodium Chloride (Sodium Chloride 0.9% 10 Ml Flush Syringe) 10 ml IV PRN PRN PRN Reason: LINE FLUSH Torsemide (Torsemide 10 Mg Tab) 40 mg PO BID [facility] Last Admin: 04/22/21 23:40 Dose: Not Given Documented by: Review of Systems ROS unobtainable: due to endotracheal tube Physical Examination Vital Signs Pulse Resp BP Pulse Ox 120 H 30 H 144/83 100 04/22/21 17:52 04/22/21 17:52 04/22/21 17:52 04/22/21 17:52 General appearance: other (Intubated and sedated) HEENT: Positive: PERRL, Mucus Membranes Moist Neck: Positive: neck supple. Negative: JVD/HJR Cardiac: Positive: Regular Rate, S1/S2, S3, PMI, Dilated, Laterally Displaced Lungs: Positive: clear to auscultation, No Wheeze, Rales, Rhonchi Neuro: Positive: Other (unresponsive generalized hypotonia ans hyporeflexia) Abdomen: Positive: Soft, Active Bowel Sounds Extremities: Absent: edema Results 04/23/21 02:36 04/23/21 02:36 Coagulation 04/22/21 Range/Units 18:12 PT 14.9 (12.2-14.9) Sec. INR 1.17 H (0.87-1.13) APTT 36.5 (24.2-36.6) Sec. Lipids 04/22/21 Range/Units 18:12 Triglycerides 107 (2-149) mg/dL Cholesterol 136 (50-199) mg/dL HDL Cholesterol 58 (40-59) mg/dL Cholesterol/HDL Ratio 2.34 % CBC 04/22/21 04/23/21 Range/Units 18:12 02:36 WBC 14.6 H 14.6 H (4.5-11.0) K/mm3 RBC 4.02 3.76 (3.65-5.03) M/mm3 Hgb 13.4 12.3 (11.8-15.2) gm/dl Hct 41.0 36.4 (35.5-45.6) % Plt Count 189 164 (140-440) K/mm3 Lymph # (Auto) 3.4 0.5 L (1.2-5.4) K/mm3 [place] # (Auto) 0.7 1.0 H (0.0-0.8) K/mm3 Eos # (Auto) 0.1 0.0 (0.0-0.4) K/mm3 Baso # (Auto) 0.1 0.0 (0.0-0.1) K/mm3 Comprehensive Metabolic Panel 04/22/21 04/23/21 Range/Units 18:12 02:36 Sodium 140 139 (137-145) mmol/L Potassium 3.8 3.8 (3.6-5.0) mmol/L Chloride 93.4 L 97.4 L (98-107) mmol/L Carbon Dioxide 21 L 25 (22-30) mmol/L BUN 14 21 H (9-20) mg/dL Creatinine 1.2 1.6 H (0.8-1.3) mg/dL Glucose 186 H 145 H (75-100) mg/dL Calcium 9.3 8.5 (8.4-10.2) mg/dL - EKG Interpretation EKG: sinus rhythm EKG shows: sinus rhythm EKG interpretations - Telemetry EKG Rhythm: Sinus Rhythm Assessment and Plan 1. Status post cardiopulmonary arrest ( NSTEMI ) 2. Respiratory failure intubated on mechanical ventilator 3. Coronary artery disease status post CABG 4. Ischemic cardiomyopathy left ventricular ejection fraction on previous assessment 40 to 45% 5. Acute renal failure rule out ATN 6. Essential hypertension 7. History of CVA Elevated serum troponin levels noted post cardiac arrest cannot exclude a non-ST elevation [place] History of CABGx3 in 1995 [facility] 03/2019 at [facility] reports patent JARRELL to LAD, patent SVG to the Ramus and chronically occluded SVG to the RCA with faint collaterals from left to right. s/p transmyocardial laser revascularization (TMR) done at [facility] in 2014. Ischemic Cardiomyopathy echocardiogram done 03/2019 reports a mildly decreased LVEF 40-45%. Plan. Neuro evaluation pending. Supportive cardiac care resume cardiac medication.. Echocardiogram to assess global and regional LV systolic function. Wean off ventilator as tolerated. further cardiac workup will depend on extent of Neuro recovery.
[2021-04-23] MEDS: hydrALAZINE 25 MG TAB PO SCH ×3 (09:46→19:41)
[2021-04-23] MEDS: carvediloL 25 MG TAB PO SCH (09:47)
[2021-04-23] MEDS: amLODIPine 10 MG TAB PO SCH (09:47)
[2021-04-23] MEDS: FAMOTIDINE 20 MG/2 ML INJ IV SCH ×2 (09:48→21:27)
[2021-04-23] MEDS: LISINOPRIL 5 MG TAB PO SCH ×2 (09:48→10:05)
[2021-04-23] MEDS: CLOPIDOGREL 75 MG TAB PO SCH (09:48)
[2021-04-23] MEDS: cefTRIAXone/NS 2 GM/100 ML 2 GM/100 ML BAG IV SCH (09:49)
[2021-04-23] MEDS ORDERED: ASPIRIN EC 325 MG TAB PO SCH (10:00)
[2021-04-23] MEDS: TORSEMIDE 10 MG TAB PO SCH (10:04)
--- NOTE | 2021-04-23 10:48 | Consultation ---
History of Present Illness - Reason for Consult Consult date: 04/23/21 acute renal failure Requesting physician: KATHRINE SOTO - History of Present Illness 65-year-old male with a history of diabetes mellitus, hypertension chronic heart failure reduced ejection fraction presents on account of cardiac arrest at home. Patient was drinking when needed to complain of shortness of breath. He collapsed and was unresponsive. EMS was called. Upon arrival of fire department patient was placed on AED and shocked x2. Patient was found to be in asystole and was given epinephrine x3, Narcan, sodium bicarb x1 and ROSC was achieved. Upon arrival to the emergency department patient initially had a pulse and then lost its and so had another round of ACLS and received epinephrine x1 and bicarb x1. Work-up in the emergency department revealed leukocytosis, lactic acidosis, elevated troponin, hypochloremia, metabolic acidosis. BUN/creatinine also found to be elevated and I am consulted to assist with managing this. Patient is intubated on ventilator not able to gi ve a history and so my history is obtained from a review of the records. Past History Past Medical History: CAD, diabetes, heart failure (Ejection fraction 40 to 45%), hypertension, hyperlipidemia, stroke Past Surgical History: CABG Social history: other (Unable to obtain) Family history: other (Unable to obtain) Medications and Allergies Allergies Allergy/AdvReac Type Severity Reaction Status Date / Time hydrocodone Allergy Unknown Unknown Verified 05/29/19 17:35 acetaminophen [From Percocet] Allergy Unknown Verified 12/22/20 15:37 Iodinated Contrast Media Allergy Itching Verified 12/22/20 15:37 [Iodinated Contrast Media - IV Dye] oxycodone [From Percocet] Allergy Unknown Verified 12/22/20 15:37 Home Medications Medication Instructions Recorded Confirmed Last Taken Type Aspirin [Aspirin BABY CHEW TAB] 81 mg PO QDAY #30 tab.chew 10/04/18 12/08/19 07/19/19 Rx Clopidogrel [Plavix] 75 mg PO QDAY #30 tablet 10/04/18 12/08/19 07/19/19 Rx amLODIPine 10 mg PO QDAY #30 tablet 10/04/18 12/08/19 07/19/19 Rx carvediloL [Coreg] 25 mg PO DAILY #30 tablet 10/04/18 12/08/19 07/19/19 Rx hydrALAZINE [Apresoline TAB] 25 mg PO TID #90 tablet 10/04/18 12/08/19 07/19/19 Rx ISOSORBIDE MONOnitrate [Imdur ER] 60 mg PO BID 05/28/19 12/08/19 07/19/19 History Potassium Chloride [K-Dur] 10 meq PO QDAY 05/28/19 12/08/19 07/19/19 History lisinopriL [Zestril TAB] 5 mg PO QDAY 05/28/19 12/08/19 07/19/19 History raNITIdine HCl [Zantac] 300 mg PO BID 05/28/19 12/08/19 07/19/19 History risperiDONE [RisperDAL] 0.5 mg PO BID 05/28/19 12/08/19 07/19/19 History AtorvaSTATin [Lipitor] 80 mg PO QHS tablet 05/30/19 12/08/19 07/19/19 Rx Nitroglycerin [Nitrostat] 0.4 mg SL .Q5MIN PRN #60 tab 12/08/19 Unknown Rx Ranolazine ER [Ranexa ER] 1,000 mg PO BID #60 tablet 12/08/19 Unknown Rx Temazepam 30 mg PO QHS #7 capsule 12/08/19 Unknown Rx Torsemide [Demadex] 40 mg PO BID #60 12/08/19 Unknown Rx Active Meds: Active Medications Acetaminophen (Acetaminophen 325 Mg Tab) 650 mg PO Q4H PRN PRN Reason: Pain MILD(1-3)/Fever >100.5/GIORDANO Albuterol (Albuterol 2.5 Mg/3 Ml Nebu) 2.5 mg IH Q3HRT PRN PRN Reason: Shortness Of Breath Albuterol/Ipratropium (Ipratropium/Albuterol Sulfate 3 Ml Ampul.Neb) 1 ampul IH Q6HRT [facility] Last Admin: 04/23/21 09:13 Dose: 1 ampul Documented by: Amlodipine Besylate (Amlodipine 10 Mg Tab) 10 mg PO QDAY [facility] Last Admin: 04/23/21 09:47 Dose: 10 mg Documented by: Lipase/Protease/Amylase (Lipase 10,500/Protease 25,000/Amylase 43,750 (Units) Dr Machado) 1 each FEEDTUBE PRN PRN PRN Reason: For Clogged Feeding Tube Aspirin (Aspirin Ec 325 Mg Tab) 325 mg PO QDAY [facility] Last Admin: 04/23/21 09:47 Dose: 325 mg Documented by: Atorvastatin Calcium (Atorvastatin 40 Mg Tab) 80 mg PO QHS [facility] Last Admin: 04/22/21 23:40 Dose: Not Given Documented by: Carvedilol (Carvedilol 25 Mg Tab) 25 mg PO DAILY@0800 [facility] Last Admin: 04/23/21 09:47 Dose: 25 mg Documented by: Clopidogrel Bisulfate (Clopidogrel 75 Mg Tab) 75 mg PO QDAY [facility] Last Admin: 04/23/21 09:48 Dose: 75 mg Documented by: Dextrose (Dextrose 50% In Water (25gm) 50 Ml Syringe) 0 ml IV Q30MIN PRN; Protocol PRN Reason: Hypoglycemia Famotidine (Famotidine 20 Mg/2 Ml Inj) 20 mg IV BID [facility] Last Admin: 04/23/21 09:48 Dose: 20 mg Documented by: Heparin Sodium (Porcine) (Heparin 10,000 Units/10 Ml Vial) 4,000 unit 40 unit/kg (4000 unit) IV Q6H PRN PRN Reason: Anti-Xa Assay < 0.1 units/ml Hydralazine HCl (Hydralazine 25 Mg Tab) 25 mg PO TID [facility] Last Admin: 04/23/21 09:46 Dose: 25 mg Documented by: Hydralazine HCl (Hydralazine 20 Mg/1 Ml Inj) 10 mg IV Q6H PRN PRN Reason: htn Last Admin: 04/23/21 05:34 Dose: 10 mg Documented by: Propofol (Diprivan 10 Mg/Ml) 1,000 mg in 100 mls @ 3 mls/hr IV TITR [facility]; Protoc ol Last Admin: 04/23/21 07:13 Dose: 35 mcg/kg/min, 21 mls/hr Documented by: Ceftriaxone Sodium (Rocephin/Ns 2 Gm/100 Ml) 2 gm in 100 mls @ 200 mls/hr IV Q24HR [facility]; Protocol Last Admin: 04/23/21 09:49 Dose: 200 mls/hr Documented by: Heparin Sodium/Sodium Chloride (Heparin/ 0.45% Nacl-25,000 Unit/500 Ml) 25,000 unit in 500 mls @ 20 mls/hr IV TITRATE [facility]; Protocol Last Titration: 04/23/21 05:05 Dose: 1,000 units/hr, 20 mls/hr Documented by: Sodium Chloride (Nacl 0.9% 1000 Ml) 1,000 mls @ 75 mls/hr IV DIRECT [facility] Last Admin: 04/22/21 23:11 Dose: 75 mls/hr Documented by: Levetiracetam 750 mg/ Dextrose 107.5 mls @ 400 mls/hr IV Q12HR [facility] Insulin Human Lispro (Insulin Lispro 100 Unit/Ml) 0 unit SUB-Q Q6HR [facility]; Protocol Last Admin: 04/23/21 05:39 Dose: Not Given Documented by: Isosorbide Mononitrate (Isosorbide Mononitrate Er 60 Mg Tab) 60 mg PO BID [facility] Last Admin: 04/23/21 09:48 Dose: 60 mg Documented by: Lorazepam (Lorazepam 2 Mg/Ml Vial) 2 mg IV Q4H PRN PRN Reason: Seizures Last Admin: 04/23/21 03:22 Dose: 2 mg Documented by: Nitroglycerin (Nitroglycerin 0.4 Mg Tab Subl) 0.4 mg SL .Q5MIN PRN PRN Reason: Chest Pain Ondansetron HCl (Ondansetron 4 Mg/2 Ml Inj) 4 mg IV Q8H PRN PRN Reason: Nausea And Vomiting Ranolazine (Ranolazine Er 500 Mg Tab 12hr) 1,000 mg PO BID [facility] Last Admin: 04/22/21 23:39 Dose: Not Given Documented by: Simple Syrup (Simple Syrup 15 Ml) 15 ml FEEDTUBE PRN PRN PRN Reason: Hypoglycemia Simple Syrup (Simple Syrup 15 Ml) 30 ml FEEDTUBE PRN PRN PRN Reason: Hypoglycemia Sodium Bicarbonate (Sodium Bicarbonate 325 Mg Tab) 325 mg FEEDTUBE PRN PRN PRN Reason: For Clogged Feeding Tube Sodium Chloride (Sodium Chloride 0.9% 10 Ml Flush Syringe) 10 ml IV BID [facility] Last Admin: 04/23/21 09:48 Dose: 10 ml Documented by: Sodium Chloride (Sodium Chloride 0.9% 10 Ml Flush Syringe) 10 ml IV PRN PRN PRN Reason: LINE FLUSH Review of Systems ROS unobtainable: due to endotracheal tube, due to mental status Exam - Vital Signs Vital signs: Vital Signs Pulse Resp BP Pulse Ox 120 H 30 H 144/83 100 04/22/21 17:52 04/22/21 17:52 04/22/21 17:52 04/22/21 17:52 - Physical Exam Narrative exam: Middle-aged obese -Martiniquais male lying in bed intubated on ventilator HEENT: NCAT, endotracheal tube intact Neck: Supple, no venous distention CVS: S1S2 RRR with no murmur, rub or gallop Chest: Clear to auscultation with few rales in the lower zones Abdomen: Protuberant, soft, nontender, no organomegaly, bowel sounds are present Extremities: No edema Genitourinary deferred Skin warm and dry, no rash Neuro: Unresponsive. Patient was on sedation Results - Lab Results 04/23/21 02:36 04/23/21 02:36 Most recent lab results ABG pH 7.536 (7.320-7.450) H 04/23/21 03:54 ABG O2 Saturation 98.7 (0-100) 04/23/21 03:54 Calcium 8.5 mg/dL (8.4-10.2) 04/23/21 02:36 Assessment and Plan - Patient Problems (1) Acute kidney injury (DELMI) with acute tubular necrosis (ATN) Current Visit: Yes Status: Acute Plan to address problem: Acute kidney injury acute tubular necrosis secondary to hypotension status post cardiac arrest. Kidney function is now improving. Will get urine studies and a kidney ultrasound. Follow-up electrolytes and renal function (2) Acute respiratory failure Current Visit: Yes Status: Acute Plan to address problem: Continue ventilator management per pulmonary. (3) Hypertensive emergency Current Visit: Yes Status: Acute Plan to address problem: Oral antihypertensive medications been resumed. Will need to continue intravenous drip if blood pressure still not controlled (4) Lactic acidosis Current Visit: Yes Status: Acute (5) Type 2 diabetes mellitus Current Visit: Yes Status: Acute Plan to address problem: Blood sugar control by primary attending (6) History of CVA (cerebrovascular accident) Current Visit: No Status: Chronic Plan to address problem: Continue present treatment (7) Hyperlipidemia Current Visit: No Status: Chronic Plan to address problem: Follow-up medications (8) Encephalopathy Current Visit: Yes Status: Acute Plan to address problem: Suspect hypoxic ischemic encephalopathy. Sedation being weaned per neurology with close monitoring
[2021-04-23] MEDS: RANOLAZINE ER 500 MG TAB 12HR PO SCH ×2 (10:50→21:27)
--- NOTE | 2021-04-23 11:41 | Progress Note ---
<LIZAElderKATHRINENola - Last Filed: 04/23/21 12:59> Assessment and Plan Assessment and plan: This is a 65-year-old male with CAD s/p CABG x3, ischemic cardiomyopathy with ejection fraction of 40 to 45%, hypertension, hyperlipidemia, CVA and diabetes who was admitted s/p cardiac arrest, leukocytosis, lactic acidosis, elevated troponin, hypochloremia, metabolic acidosis, acute hypoxic respiratory failure S/p cardiac arrest (NSTEMI) Acute hypoxic respiratory failure Acute kidney injury secondary to vasomotor nephropathy COVID-19 PUI ? Likely brain injury ? Myoclonic jerks/Seizures Lactic acidosis (downtrending) Elevated D-dimer CAD s/p CABG x3 Ischemic cardiomyopathy with EF of 40 to 45% Hypertension Hyperlipidemia CVA Diabetes -CCM, neurology, nephrology, cardiology consulted, appreciate recommendations -COVID-19 PCR pending -Droplet/contact isolation -IV Keppra -IV antibiotic -Sedation with propofol -MRI brain pending -EEG pending -Echocardiogram pending -Renal ultrasound pending -Urine lites pending -Aspirin, Lipitor -Heparin drip -Continue home amlodipine, aspirin, Lipitor, Coreg, Plavix, hydralazine, Imdur -S/p 2L NS bolus in ED -IV hydration -Hold home torsemide, lisinopril -Tube feeding -Trend CBC, BMP DVT/GI prophylaxis: SCDs to bilateral lower extremities while in bed, systemic anticoagulation with heparin drip, PPI Disposition: ICU The high probability of a clinically significant, sudden or life threatening deterioration of the [multi] system(s) required my full and direct attention, intervention and personal management. The aggregate critical care time was [35] minutes. This time is in addition to time spent performing reported procedures but includes the following: [x] Data Review and interpretation [x] Patient assessment and monitoring of vital signs [x] Documentation [x] Medication orders and management History Interval history: This is a 65-year-old male with CAD s/p stents and CABG, DM, CVA, diastolic heart failure, HTN, hypercholesterolemia presented to the emergency department on 04/22 s/p cardiac arrest. Upon arrival of fire department patient was placed in the ED and shocked x2. Upon arrival of EMS patient was found to be in asystole and was given epinephrine x3, Narcan, sodium bicarb x1 and ROSC was achieved. Upon arrival to the emergency department patient again went to cardiac arrest and received 1 round of ACLS with epi nephron x1 and bicarb x1. Work-up in the emergency department revealed leukocytosis, lactic acidosis, elevated troponin, hypochloremia, metabolic acidosis. Patient was admitted to the hospital service with consults to nephrology, cardiology, neurology and CCM. 04/13: We will hold MOLLY inhibitor and diuretics in setting of DELMI. EEG, MRI/MRV, renal ultrasound, echocardiogram pending Patient sedated with propofol. At the time my examination patient is on assist control tidal volume 450, rate of 26, PEEP of 6 and FiO2 of 30%. Nephrology was consulted given acute kidney inju ry and neurology. Hospitalist Physical - Constitutional Vitals: Temp Pulse Resp BP Pulse Ox 98.2 F 97 H 26 H 196/93 99 04/23/21 08:00 04/23/21 11:30 04/23/21 11:30 04/23/21 11:30 04/23/21 11:30 General appearance: Present: other (Intubated and sedated) - EENT Eyes: Present: miosis ENT: poor dentition - Respiratory Respiratory effort: normal Respiratory: bilateral: diminished - Cardiovascular Rhythm: regular Heart Sounds: Present: S1 & S2. Absent: systolic murmur, diastolic murmur - Extremities Extremities: no ischemia, pulses intact, pulses symmetrical, No edema, normal temperature, normal color Peripheral Pulses: within normal limits - Abdominal General gastrointestinal: soft, non-tender, non-distended, normal bowel sounds - Integumentary Integumentary: Present: clear, warm, dry - Psychiatric Psychiatric: other (sedated) - Neurologic Neurologic: other (Intact cough/gag, withdraws to painful stimuli in 4 extremities) - Allied Health Allied health notes reviewed: nursing, RT, social work HEART Score - HEART Score Troponin: Troponin T 1.020 ng/mL (0.00-0.029) H* D 04/23/21 02:36 Results - Labs CBC & Chem 7: 04/23/21 02:36 04/23/21 02:36 Labs: Laboratory Last Values WBC 14.6 K/mm3 (4.5-11.0) H 04/23/21 02:36 RBC 3.76 M/mm3 (3.65-5.03) 04/23/21 02:36 Hgb 12.3 gm/dl (11.8-15.2) 04/23/21 02:36 Hct 36.4 % (35.5-45.6) 04/23/21 02:36 MCV 97 fl (84-94) H 04/23/21 02:36 MCH 33 pg (28-32) H 04/23/21 02:36 MCHC 34 % (32-34) 04/23/21 02:36 RDW 14.2 % (13.2-15.2) 04/23/21 02:36 Plt Count 164 K/mm3 (140-440) 04/23/21 02:36 Lymph % (Auto) 3.6 % (13.4-35.0) L 04/23/21 02:36 Wood % (Auto) 6.7 % (0.0-7.3) 04/23/21 02:36 Eos % (Auto) 0.0 % (0.0-4.3) 04/23/21 02:36 Baso % (Auto) 0.3 % (0.0-1.8) 04/23/21 02:36 Lymph # (Auto) 0.5 K/mm3 (1.2-5.4) L 04/23/21 02:36 Wood # (Auto) 1.0 K/mm3 (0.0-0.8) H 04/23/21 02:36 Eos # (Auto) 0.0 K/mm3 (0.0-0.4) 04/23/21 02:36 Baso # (Auto) 0.0 K/mm3 (0.0-0.1) 04/23/21 02:36 Seg Neutrophils % 89.4 % (40.0-70.0) H 04/23/21 02:36 Seg Neutrophils # 13.0 K/mm3 (1.8-7.7) H 04/23/21 02:36 PT 14.9 Sec. (12.2-14.9) 04/22/21 18:12 INR 1.17 (0.87-1.13) H 04/22/21 18:12 APTT 36.5 Sec. (24.2-36.6) 04/22/21 18:12 D-Dimer 8003.00 ng/mlDDU (0-234) H 04/23/21 08:58 Heparin Anti-Xa Level 0.56 U.I./ml (0.3-0.7) 04/23/21 08:58 ABG pH 7.536 (7.320-7.450) H 04/23/21 03:54 POC ABG pCO2 31.1 mmHg (32.0-48.0) L 04/23/21 03:54 POC ABG pO2 112.7 mmHg (83-108) H 04/23/21 03:54 POC ABG HCO3 25.8 04/23/21 03:54 ABG O2 Saturation 98.7 (0-100) 04/23/21 03:54 POC ABG Base Excess 3.7 04/23/21 03:54 ABG Hemoglobin 13.1 (12.0-17.5) 04/23/21 03:54 ABG Oxyhemoglobin 97.5 (94-98) 04/23/21 03:54 ABG Methemoglobin 0.3 (0.0-1.5) 04/23/21 03:54 ABG Sodium 138.4 mmol/L (136.0-145.0) 04/23/21 03:54 ABG Potassium 3.3 mmol/L (3.40-4.50) L 04/23/21 03:54 ABG Chloride 103.0 mmol/L (98-107) 04/23/21 03:54 ABG Glucose 129 mg/dL (65-95) H 04/23/21 03:54 Carboxyhemoglobin 0.9 (0.5-1.5) 04/23/21 03:54 FiO2 % 40.0 04/23/21 03:54 Sodium 139 mmol/L (137-145) 04/23/21 02:36 Potassium 3.8 mmol/L (3.6-5.0) 04/23/21 02:36 Chloride 97.4 mmol/L (98-107) L 04/23/21 02:36 Carbon Dioxide 25 mmol/L (22-30) 04/23/21 02:36 Anion Gap 20 mmol/L 04/23/21 02:36 BUN 21 mg/dL (9-20) H 04/23/21 02:36 Creatinine 1.6 mg/dL (0.8-1.3) H 04/23/21 02:36 Estimated GFR 53 ml/min 04/23/21 02:36 BUN/Creatinine Ratio 13 % 04/23/21 02:36 Glucose 145 mg/dL (75-100) H 04/23/21 02:36 POC Glucose 123 mg/dL (70-105) H 04/23/21 05:22 Lactic Acid 2.40 mmol/L (0.7-2.0) H* 04/23/21 08:58 Calcium 8.5 mg/dL (8.4-10.2) 04/23/21 02:36 Ferritin 185.5 ng/mL (30.0-300.0) 04/23/21 08:58 Lactate Dehydrogenase 546 units/L (91-180) H 04/23/21 08:58 Troponin T 1.020 ng/mL (0.00-0.029) H* D 04/23/21 02:36 NT-Pro-B Natriuret Pep 2448 pg/mL (0-900) H 04/22/21 18:12 Triglycerides 107 mg/dL (2-149) 04/22/21 18:12 Cholesterol 136 mg/dL (50-199) 04/22/21 18:12 LDL Cholesterol Direct 78 mg/dL (50-130) 04/22/21 18:12 HDL Cholesterol 58 mg/dL (40-59) 04/22/21 18:12 Cholesterol/HDL Ratio 2.34 % 04/22/21 18:12 Procalcitonin 3.46 ng/mL (<0.15) 04/23/21 08:58 Arterial Blood Glucose 129 mg/dL (65-95) H 04/23/21 03:54 Arterial Blood Ionized Calcium 4.1 mg/dL (4.6-5.3) L 04/23/21 03:54 Microbiology: Microbiology 04/22/21 18:25 Peripheral/Venous Blood Culture - Preliminary Culture in Progress 04/22/21 18:12 Peripheral/Venous Blood Culture - Preliminary Culture in Progress Cruz/IV: Voiding Method Indwelling Catheter Active Medications - Current Medications Current Medications: Generic Name Dose Route Start Last Admin Trade Name Freq PRN Reason Stop Dose Admin Acetaminophen 650 mg 04/22/21 21:26 Acetaminophen 325 Mg Tab PO Q4H PRN Pain MILD(1-3)/Fever >100.5/GIORDANO Albuterol 2.5 mg 04/22/21 21:26 Albuterol 2.5 Mg/3 Ml Nebu IH Q3HRT PRN Shortness Of Breath Albuterol/Ipratropium 1 ampul 04/23/21 02:00 04/23/21 09:13 Ipratropium/Albuterol Sulfate 3 Ml Ampul.Neb IH 1 ampul Q6HRT [facility] Administration Amlodipine Besylate 10 mg 04/23/21 10:00 04/23/21 09:47 Amlodipine 10 Mg Tab PO 10 mg QDAY [facility] Administration Lipase/Protease/Amylase 1 each 04/23/21 09:33 Lipase 10,500/Protease 25,000/Amylase 43,750 (Units) Dr Carter LARSENTUBE PRN PRN For Clogged Feeding Tube Aspirin 325 mg 04/23/21 10:00 04/23/21 09:47 Aspirin Ec 325 Mg Tab PO 325 mg QDAY [facility] Administration Atorvastatin Calcium 80 mg 04/22/21 22:00 04/22/21 23:40 Atorvastatin 40 Mg Tab PO Not Given QHS [facility] Carvedilol 25 mg 04/23/21 08:00 04/23/21 09:47 Carvedilol 25 Mg Tab PO 25 mg DAILY@0800 [facility] Administration Clopidogrel Bisulfate 75 mg 04/23/21 10:00 04/23/21 09:48 Clopidogrel 75 Mg Tab PO 75 mg QDAY [facility] Administration Dextrose 0 ml 04/22/21 21:26 Dextrose 50% In Water (25gm) 50 Ml Syringe IV Q30MIN PRN Hypoglycemia Protocol Famotidine 20 mg 04/22/21 22:00 04/23/21 09:48 Famotidine 20 Mg/2 Ml Inj IV 20 mg BID [facility] Administration Heparin Sodium (Porcine) 4,000 unit 04/22/21 21:39 Heparin 10,000 Units/10 Ml Vial 40 unit/kg (4000 unit) IV Q6H PRN Anti-Xa Assay < 0.1 units/ml Hydralazine HCl 25 mg 04/23/21 08:00 04/23/21 09:46 Hydralazine 25 Mg Tab PO 25 mg TID [facility] Administration Hydralazine HCl 10 mg 04/22/21 21:35 04/23/21 05:34 Hydralazine 20 Mg/1 Ml Inj IV 10 mg Q6H PRN Administration htn Propofol 1,000 mg in 100 mls @ 3 mls/hr 04/22/21 19:00 04/23/21 07:13 Diprivan 10 Mg/Ml IV 35 mcg/kg/min TITR [facility] 21 mls/hr Administration Protocol 5 MCG/KG/MIN Ceftriaxone Sodium 2 gm in 100 mls @ 200 mls/hr 04/23/21 10:00 04/23/21 09:49 Rocephin/Ns 2 Gm/100 Ml IV 200 mls/hr Q24HR [facility] Administration Protocol Heparin Sodium/Sodium Chloride 25,000 unit in 500 mls @ 20 mls/hr 04/22/21 22:00 04/23/21 09:00 Heparin/ 0.45% Nacl-25,000 Unit/500 Ml IV 1,000 units/hr TITRATE [facility] 20 mls/hr Titration Protocol 1,000 UNITS/HR Sodium Chloride 1,000 mls @ 75 mls/hr 04/22/21 22:00 04/22/21 23:11 Nacl 0.9% 1000 Ml IV 75 mls/hr DIRECT [facility] Administration Levetiracetam 750 mg/ Dextrose 107.5 mls @ 400 mls/hr 04/23/21 11:30 IV Q12HR [facility] Insulin Human Lispro 0 unit 04/23/21 00:00 04/23/21 05:39 Insulin Lispro 100 Unit/Ml SUB-Q Not Given Q6HR [facility] Protocol Isosorbide Mononitrate 60 mg 04/22/21 22:00 04/23/21 09:48 Isosorbide Mononitrate Er 60 Mg Tab PO 60 mg BID [facility] Administration Lorazepam 2 mg 04/22/21 22:52 04/23/21 03:22 Lorazepam 2 Mg/Ml Vial IV 2 mg Q4H PRN Administration Seizures Nitroglycerin 0.4 mg 04/22/21 21:26 Nitroglycerin 0.4 Mg Tab Subl SL .Q5MIN PRN Chest Pain Ondansetron HCl 4 mg 04/22/21 21:26 Ondansetron 4 Mg/2 Ml Inj IV Q8H PRN Nausea And Vomiting Ranolazine 1,000 mg 04/22/21 22:00 04/23/21 10:50 Ranolazine Er 500 Mg Tab 12hr PO 1,000 mg BID [facility] Administration Simple Syrup 15 ml 04/23/21 09:33 Simple Syrup 15 Ml FEEDTUBE PRN PRN Hypoglycemia Simple Syrup 30 ml 04/23/21 09:33 Simple Syrup 15 Ml FEEDTUBE PRN PRN Hypoglycemia Sodium Bicarbonate 325 mg 04/23/21 09:33 Sodium Bicarbonate 325 Mg Tab FEEDTUBE PRN PRN For Clogged Feeding Tube Sodium Chloride 10 ml 04/22/21 22:00 04/23/21 09:48 Sodium Chloride 0.9% 10 Ml Flush Syringe IV 10 ml BID [facility] Administration Sodium Chloride 10 ml 04/22/21 21:26 Sodium Chloride 0.9% 10 Ml Flush Syringe IV PRN PRN LINE FLUSH Nutrition/Malnutrition Assess - Dietary Evaluation Nutrition/Malnutrition Findings: Nutrition Notes Start: 04/23/21 08:22 Freq: Status: Active Protocol: Document 04/23/21 08:22 LP (Rec: 04/23/21 08:27 LP [id number]) Nutrition Notes Need for Assessment generated from: MD Order Initial or Follow up Assessment Current Diagnosis Diabetes,Hypertension,Heart Failure,Stroke Other Pertinent Diagnosis Cardiac arrest, AMI Current Diet NPO Labs/Tests BUN 21 Cr 1.6 BG 145 Pertinent Medications Propofol at 21ml/hr (554kcal) Height 6 ft Weight 96 kg [place] Body Weight (kg) 80.90 BMI 28.7 Weight Status Overweight Subjective/Other Information Consult for TF. Consult for diet education. Pt on vent and not appropriate for diet education at this time. Burn Absent Trauma Absent GI Symptoms None Current % PO Negligible Minimum of two criteria No physical signs of malnutrition #1 Nutrition Diagnosis Inadequate oral intake Etiology ARF As Evidenced by Signs and Symptoms Pt unable to consume PO due to vent Is patient on ventilator? Yes Is Patient Ambulatory and/or Out of Bed No REE-([facility]-confined to bed) 6351.306 Calculation Used for Recommendations [facility] Additional Notes Protein needs are 115-192g (1. 2-2g/kg) Fluid needs are 1ml/kcal Nutrition Intervention Change Diet Order: TF Nutrition Support: Vital 1.2 at 65ml/h Flush with 100ml q4h Kcal 1,872 Protein (gm) 117 Fluid (mL) 1,260 Goal #1 Meet at least 80% of kcal and protein needs Anticipated Discharge Needs: Unable to determine at this time Follow-Up By: 04/25/21 Additional Comments Follow for TF start/tolerance <KENJI TA Jose L - Last Filed: 04/24/21 07:19> Assessment and Plan Assessment and plan: I saw and evaluated the patient. I agree with the findings and the plan of care as documented in the Nurse Practitioner's~note, with the following corrections and additions. Hospitalist Physical - Constitutional Vitals: Temp Pulse Resp BP Pulse Ox 99.4 F 94 H 26 H 163/76 100 04/24/21 03:22 04/24/21 06:20 04/24/21 06:20 04/24/21 06:20 04/24/21 06:20 HEART Score - HEART Score Troponin: Troponin T 1.020 ng/mL (0.00-0.029) H* D 04/23/21 02:36 Results - Labs CBC & Chem 7: 04/23/21 02:36 04/23/21 02:36 Labs: Laboratory Last Values WBC 14.6 K/mm3 (4.5-11.0) H 04/23/21 02:36 RBC 3.76 M/mm3 (3.65-5.03) 04/23/21 02:36 Hgb 12.3 gm/dl (11.8-15.2) 04/23/21 02:36 Hct 36.4 % (35.5-45.6) 04/23/21 02:36 MCV 97 fl (84-94) H 04/23/21 02:36 MCH 33 pg (28-32) H 04/23/21 02:36 MCHC 34 % (32-34) 04/23/21 02:36 RDW 14.2 % (13.2-15.2) 04/23/21 02:36 Plt Count 164 K/mm3 (140-440) 04/23/21 02:36 Lymph % (Auto) 3.6 % (13.4-35.0) L 04/23/21 02:36 Wood % (Auto) 6.7 % (0.0-7.3) 04/23/21 02:36 Eos % (Auto) 0.0 % (0.0-4.3) 04/23/21 02:36 Baso % (Auto) 0.3 % (0.0-1.8) 04/23/21 02:36 Lymph # (Auto) 0.5 K/mm3 (1.2-5.4) L 04/23/21 02:36 Wood # (Auto) 1.0 K/mm3 (0.0-0.8) H 04/23/21 02:36 Eos # (Auto) 0.0 K/mm3 (0.0-0.4) 04/23/21 02:36 Baso # (Auto) 0.0 K/mm3 (0.0-0.1) 04/23/21 02:36 Seg Neutrophils % 89.4 % (40.0-70.0) H 04/23/21 02:36 Seg Neutrophils # 13.0 K/mm3 (1.8-7.7) H 04/23/21 02:36 PT 14.9 Sec. (12.2-14.9) 04/22/21 18:12 INR 1.17 (0.87-1.13) H 04/22/21 18:12 APTT 36.5 Sec. (24.2-36.6) 04/22/21 18:12 D-Dimer 8003.00 ng/mlDDU (0-234) H 04/23/21 08:58 Heparin Anti-Xa Level 0.56 U.I./ml (0.3-0.7) 04/23/21 08:58 ABG pH 7.485 (7.320-7.450) H 04/24/21 04:01 POC ABG pCO2 34.6 mmHg (32.0-48.0) 04/24/21 04:01 POC ABG pO2 95.1 mmHg (83-108) 04/24/21 04:01 POC ABG HCO3 25.5 04/24/21 04:01 ABG O2 Saturation 97.6 (0-100) 04/24/21 04:01 POC ABG Base Excess 2.3 04/24/21 04:01 ABG Hemoglobin 12.3 (12.0-17.5) 04/24/21 04:01 ABG Oxyhemoglobin 96.3 (94-98) 04/24/21 04:01 ABG Methemoglobin 0.3 (0.0-1.5) 04/24/21 04:01 ABG Sodium 135.8 mmol/L (136.0-145.0) L 04/24/21 04:01 ABG Potassium 3.6 mmol/L (3.40-4.50) 04/24/21 04:01 ABG Chloride 102.0 mmol/L (98-107) 04/24/21 04:01 ABG Glucose 140 mg/dL (65-95) H 04/24/21 04:01 Carboxyhemoglobin 1.0 (0.5-1.5) 04/24/21 04:01 FiO2 % 30.0 04/24/21 04:01 Sodium 139 mmol/L (137-145) 04/23/21 02:36 Potassium 3.8 mmol/L (3.6-5.0) 04/23/21 02:36 Chloride 97.4 mmol/L (98-107) L 04/23/21 02:36 Carbon Dioxide 25 mmol/L (22-30) 04/23/21 02:36 Anion Gap 20 mmol/L 04/23/21 02:36 BUN 21 mg/dL (9-20) H 04/23/21 02:36 Creatinine 1.6 mg/dL (0.8-1.3) H 04/23/21 02:36 Estimated GFR 53 ml/min 04/23/21 02:36 BUN/Creatinine Ratio 13 % 04/23/21 02:36 Glucose 145 mg/dL (75-100) H 04/23/21 02:36 POC Glucose 140 mg/dL (70-105) H 04/23/21 23:51 Lactic Acid 2.40 mmol/L (0.7-2.0) H* 04/23/21 08:58 Calcium 8.5 mg/dL (8.4-10.2) 04/23/21 02:36 Ferritin 185.5 ng/mL (30.0-300.0) 04/23/21 08:58 Lactate Dehydrogenase 546 units/L (91-180) H 04/23/21 08:58 Troponin T 1.020 ng/mL (0.00-0.029) H* D 04/23/21 02:36 C-Reactive Protein 2.20 mg/dL (0.00-1.30) H 04/23/21 08:58 NT-Pro-B Natriuret Pep 2448 pg/mL (0-900) H 04/22/21 18:12 Triglycerides 107 mg/dL (2-149) 04/22/21 18:12 Cholesterol 136 mg/dL (50-199) 04/22/21 18:12 LDL Cholesterol Direct 78 mg/dL (50-130) 04/22/21 18:12 HDL Cholesterol 58 mg/dL (40-59) 04/22/21 18:12 Cholesterol/HDL Ratio 2.34 % 04/22/21 18:12 Procalcitonin 3.46 ng/mL (<0.15) 04/23/21 08:58 Arterial Blood Glucose 140 mg/dL (65-95) H 04/24/21 04:01 Arterial Blood Ionized Calcium 4.3 mg/dL (4.6-5.3) L 04/24/21 04:01 Urine Creatinine 90.4 mg/dL (0.1-20.0) H 04/23/21 13:46 Urine Sodium 123 mmol/L 04/23/21 13:46 Urine Total Protein 103 mg/dL (5-11.8) H 04/23/21 13:46 Coronavirus (PCR) Negative (Negative) 04/23/21 Unknown Microbiology: Microbiology 04/22/21 18:25 Peripheral/Venous Blood Culture - Preliminary NO GROWTH AFTER 24 HOURS 04/22/21 18:12 Peripheral/Venous Blood Culture - Preliminary NO GROWTH AFTER 24 HOURS Cruz/IV: Voiding Method Indwelling Catheter Active Medications - Current Medications Current Medications: Generic Name Dose Route Start Last Admin Trade Name Freq PRN Reason Stop Dose Admin Acetaminophen 650 mg 04/22/21 21:26 Acetaminophen 325 Mg Tab PO Q4H PRN Pain MILD(1-3)/Fever >100.5/GIORDANO Albuterol 2.5 mg 04/22/21 21:26 Albuterol 2.5 Mg/3 Ml Nebu IH Q3HRT PRN Shortness Of Breath Albuterol/Ipratropium 1 ampul 04/23/21 02:00 04/24/21 02:12 Ipratropium/Albuterol Sulfate 3 Ml Ampul.Neb IH 1 ampul Q6HRT [facility] Administration Amlodipine Besylate 10 mg 04/23/21 10:00 04/23/21 09:47 Amlodipine 10 Mg Tab PO 10 mg QDAY [facility] Administration Lipase/Protease/Amylase 1 each 04/23/21 09:33 Lipase 10,500/Protease 25,000/Amylase 43,750 (Units) Dr Machado FEEDTUBE PRN PRN For Clogged Feeding Tube Aspirin 325 mg 04/23/21 10:00 04/23/21 09:47 Aspirin Ec 325 Mg Tab PO 325 mg QDAY [facility] Administration Atorvastatin Calcium 80 mg 04/22/21 22:00 04/23/21 21:27 Atorvastatin 40 Mg Tab PO 80 mg QHS [facility] Administration Carvedilol 25 mg 04/23/21 08:00 04/23/21 09:47 Carvedilol 25 Mg Tab PO 25 mg DAILY@0800 [facility] Administration Clopidogrel Bisulfate 75 mg 04/23/21 10:00 04/23/21 09:48 Clopidogrel 75 Mg Tab PO 75 mg QDAY [facility] Administration Dextrose 0 ml 04/22/21 21:26 Dextrose 50% In Water (25gm) 50 Ml Syringe IV Q30MIN PRN Hypoglycemia Protocol Famotidine 20 mg 04/22/21 22:00 04/23/21 21:27 Famotidine 20 Mg/2 Ml Inj IV 20 mg BID [facility] Administration Heparin Sodium (Porcine) 4,000 unit 04/22/21 21:39 Heparin 10,000 Units/10 Ml Vial 40 unit/kg (4000 unit) IV Q6H PRN Anti-Xa Assay < 0.1 units/ml Hydralazine HCl 25 mg 04/23/21 08:00 04/23/21 19:41 Hydralazine 25 Mg Tab PO 25 mg TID [facility] Administration Hydralazine HCl 10 mg 04/22/21 21:35 04/23/21 11:37 Hydralazine 20 Mg/1 Ml Inj IV 10 mg Q6H PRN Administration htn Propofol 1,000 mg in 100 mls @ 3 mls/hr 04/22/21 19:00 04/24/21 06:33 Diprivan 10 Mg/Ml IV 10 mcg/kg/min TITR [facility] 6 mls/hr Administration Protocol 5 MCG/KG/MIN Ceftriaxone Sodium 2 gm in 100 mls @ 200 mls/hr 04/23/21 10:00 04/23/21 09:49 Rocephin/Ns 2 Gm/100 Ml IV 200 mls/hr Q24HR [facility] Administration Protocol Heparin Sodium/Sodium Chloride 25,000 unit in 500 mls @ 20 mls/hr 04/22/21 22:00 04/23/21 22:49 Heparin/ 0.45% Nacl-25,000 Unit/500 Ml IV 1,000 units/hr TITRATE [facility] 20 mls/hr Administration Protocol 1,000 UNITS/HR Sodium Chloride 1,000 mls @ 75 mls/hr 04/22/21 22:00 04/24/21 00:39 Nacl 0.9% 1000 Ml IV 75 mls/hr DIRECT [facility] Administration Levetiracetam 750 mg/ Dextrose 107.5 mls @ 400 mls/hr 04/23/21 11:30 04/23/21 21:27 IV 400 mls/hr Q12HR [facility] Administration Insulin Human Lispro 0 unit 04/23/21 00:00 04/24/21 06:30 Insulin Lispro 100 Unit/Ml SUB-Q Not Given Q6HR [facility] Protocol Isosorbide Mononitrate 60 mg 04/22/21 22:00 04/23/21 21:27 Isosorbide Mononitrate Er 60 Mg Tab PO 60 mg BID [facility] Administration Lorazepam 2 mg 04/22/21 22:52 04/23/21 03:22 Lorazepam 2 Mg/Ml Vial IV 2 mg Q4H PRN Administration Seizures Nitroglycerin 0.4 mg 04/22/21 21:26 Nitroglycerin 0.4 Mg Tab Subl SL .Q5MIN PRN Chest Pain Ondansetron HCl 4 mg 04/22/21 21:26 Ondansetron 4 Mg/2 Ml Inj IV Q8H PRN Nausea And Vomiting Ranolazine 1,000 mg 04/22/21 22:00 04/23/21 21:27 Ranolazine Er 500 Mg Tab 12hr PO 1,000 mg BID [facility] Administration Simple Syrup 15 ml 04/23/21 09:33 Simple Syrup 15 Ml FEEDTUBE PRN PRN Hypoglycemia Simple Syrup 30 ml 04/23/21 09:33 Simple Syrup 15 Ml FEEDTUBE PRN PRN Hypoglycemia Sodium Bicarbonate 325 mg 04/23/21 09:33 Sodium Bicarbonate 325 Mg Tab FEEDTUBE PRN PRN For Clogged Feeding Tube Sodium Chloride 10 ml 04/22/21 22:00 04/23/21 21:28 Sodium Chloride 0.9% 10 Ml Flush Syringe IV 10 ml BID [facility] Administration Sodium Chloride 10 ml 04/22/21 21:26 Sodium Chloride 0.9% 10 Ml Flush Syringe IV PRN PRN LINE FLUSH Nutrition/Malnutrition Assess - Dietary Evaluation Nutrition/Malnutrition Findings: Nutrition Notes Start: 04/23/21 08:22 Freq: Status: Active Protocol: Document 04/23/21 08:22 LP (Rec: 04/23/21 08:27 LP [id number]) Nutrition Notes Need for Assessment generated from: MD Order Initial or Follow up Assessment Current Diagnosis Diabetes,Hypertension,Heart Failure,Stroke Other Pertinent Diagnosis Cardiac arrest, AMI Current Diet NPO Labs/Tests BUN 21 Cr 1.6 BG 145 Pertinent Medications Propofol at 21ml/hr (554kcal) Height 6 ft Weight 96 kg [place] Body Weight (kg) 80.90 BMI 28.7 Weight Status Overweight Subjective/Other Information Consult for TF. Consult for diet education. Pt on vent and not appropriate for diet education at this time. Burn Absent Trauma Absent GI Symptoms None Current % PO Negligible Minimum of two criteria No physical signs of malnutrition #1 Nutrition Diagnosis Inadequate oral intake Etiology ARF As Evidenced by Signs and Symptoms Pt unable to consume PO due to vent Is patient on ventilator? Yes Is Patient Ambulatory and/or Out of Bed No [facility] 6262.756 Calculation Used for Recommendations [facility] Additional Notes Protein needs are 115-192g (1. 2-2g/kg) Fluid needs are 1ml/kcal Nutrition Intervention Change Diet Order: TF Nutrition Support: Vital 1.2 at 65ml/h Flush with 100ml q4h Kcal 1,872 Protein (gm) 117 Fluid (mL) 1,260 Goal #1 Meet at least 80% of kcal and protein needs Anticipated Discharge Needs: Unable to determine at this time Follow-Up By: 04/25/21 Additional Comments Follow for TF start/tolerance
[2021-04-23] MEDS: levETIRAcetam 750 MG in DEXTROSE 5% IN WATER 100 ML IV SCH ×2 (12:27→21:27)
[2021-04-23 12:57] LABS: C-Reactive Protein 2.2 mg/dL (0.00-1.30)
[2021-04-23 14:35] LABS: Creatinine,Urine 90.4 mg/dL (0.1-20.0)
--- NOTE | 2021-04-23 17:13 | Ultrasound Report ---
ULTRASOUND RENAL INDICATION / CLINICAL INFORMATION: Acute kidney injury. COMPARISON: None available. FINDINGS: RIGHT KIDNEY: - Length = 12.4 cm. [Normal > 9.0 cm] - Parenchymal Thickness = 2.1 cm. [Normal > 1.5 cm] - Echogenicity: Normal -- hypoechoic or isoechoic to liver/spleen. - Hydronephrosis: None. - Cyst or mass: No significant abnormality. LEFT KIDNEY: - Length = 10.3 cm. [Normal > 9.0 cm] - Parenchymal Thickness = 2.2 cm. [Normal > 1.5 cm] - Echogenicity: Normal -- hypoechoic or isoechoic to liver/spleen. - Hydronephrosis: None. - Cyst or mass: No significant abnormality. URINARY BLADDER: Collapsed with a Cruz catheter present. ADDITIONAL FINDINGS: None. IMPRESSION: No evidence of medical renal disease or hydronephrosis. Renal Parenchymal Thickness Parenchyma = Cortex + Medullary Pyramid - Normal >= 1.5 cm - Mild thinning = 1.0-1.49 cm - Moderate thinning = 0.5-0.99 cm - Severe thinning < 0.5 cm Signer Name: Luigi Aggarwal MD Signed: 04/23/2021 5:08 PM Workstation Name: [id number]
[2021-04-23] MEDS: HEPARIN/ 0.45% NACL DRIP 25,000 UNIT/500 ML BAG IV SCH (22:49)
[2021-04-24] MEDS: INSULIN LISPRO 100 UNIT/ML SUB-Q SCH ×4 (00:01→18:41)
[2021-04-24] MEDS: SODIUM CHLORIDE 0.9% 1000 ML 1,000 ML IV SCH (00:39)
[2021-04-24] MEDS: IPRATROPIUM/ALBUTEROL SULFATE 3 ML AMPUL.NEB IH SCH ×4 (02:12→20:02)
[2021-04-24 07:22] LABS: Hematocrit 34.7 % (35.5-45.6); Hemoglobin 11.7 gm/dl (11.8-15.2); Mean Corpuscular HGB Conc 34 % (32-34); Mean Corpuscular Volume 96 fl (84-94); Platelet Count 142 K/mm3 (140-440); Red Cell Distribution Width 14.4 % (13.2-15.2)
[2021-04-24 07:36] LABS: Calcium 8.4 mg/dL (8.4-10.2)
--- NOTE | 2021-04-24 08:15 | Progress Note ---
Assessment and Plan Assessment and Plan VTE prophylaxis?: Chemical Plan of care discussed with patient/family: Yes - Patient Problems # Cardiac arrest with possible anoxic brain injury -status post cardiac arrest at home with length of time in [place] is unknown -Elevated cardiac enzymes -Admit the patient to the ICU. - Patient is status post intubation. - Aspirin 325 mg p.o. daily. - Lipitor 80 mg p.o. daily. - Heparin drip as per protocol. - Continue the home cardiac medication. - echocardiogram showed EF#20-25% # Possible myoclonic jerks --s/p cardiac arrest with resucitation --Possible significant brain injury -R/O Seizure -Keppra 750 mg Iv BID -Consider MRI brain today -EEG today # History of CVA (cerebrovascular accident) Aspirin 325 mg p.o. daily. Lipitor 80 mg p.o. daily. We will continue home medication On heparin drip CT brain is suggestive of multiple emboli ? MRI today if possible ? AF R/O # HTN (hypertension), benign Hydralazine 25 mg p.o. 3 times daily. # Hx of CABG Stable. We will continue the home cardiac medication. echocardiogram is noted #Hyperlipidemia Lipitor 80 mg p.o. daily. We will recheck the lipid panel,LDL#78 # Diabetes - sliding scale -A1C # Lactic acidosis -Patient got 2 to 3 L of fluid bolus in the emergency room. treat underlying infection # CHF (congestive heart failure) Stable We will continue the home medication. We also do echocardiogram. #DVT prophylaxis Heparin drip as per protocol for DVT prophylaxis. Pepcid 20 mg IV. twice daily for GI prophylaxis. Patient is a full code PLAN 1-Cut down sedation as possible now on prpofol and consider stop sedation 2- R?O seizure 3- keppra 750 mg IV bid 4- Brain MRI r/o multi infarct and or anoxic brain injury 5-EEG today 6-Echo cardiogram noted worsening cardiac function--EF#20-25% 7- serial cardiac enzymes and heparine will follow Over all prognosis is quarded to poor Subjective Date of service: 04/24/21 Principal diagnosis: Post cardiac arrest and possible anoxic brain injury Interval history: pt. is unresponsive vital stable , he is on heparine drip and fentanyl , HTN No noted myoclonus or seizure but had eyes flickering ? seizure can not be e xcluded --EEG today maintain Keppra 750 mg bid Creat.#2.2 Brain MRI today if possible Objective - Vital Sign Vital Signs - 12hr 04/23/21 04/23/21 04/23/21 20:20 20:30 20:40 Temperature Pulse Rate 78 80 78 Pulse Rate [ Bilateral Throughout] Pulse Rate [ From Monitor] Respiratory 26 H 26 H 26 H Rate Respiratory Rate [Bilateral Throughout] Blood Pressure 111/64 117/69 117/69 O2 Sat by Pulse 100 100 100 Oximetry 04/23/21 04/23/21 04/23/21 20:50 21:00 21:10 Temperature Pulse Rate 82 83 83 Pulse Rate [ Bilateral Throughout] Pulse Rate [ From Monitor] Respiratory H 26 H 26 H Rate Respiratory Rate [Bilateral Throughout] Blood Pressure 126/72 135/77 135/77 O2 Sat by Pulse 100 100 100 Oximetry 04/23/21 04/23/21 04/23/21 21:20 21:27 21:30 Temperature Pulse Rate 80 82 81 Pulse Rate [ Bilateral Throughout] Pulse Rate [ From Monitor] Respiratory H 26 H Rate Respiratory Rate [Bilateral Throughout] Blood Pressure 134/75 134/75 138/75 O2 Sat by Pulse 100 100 Oximetry 04/23/21 04/23/21 04/23/21 21:40 21:50 22:00 Temperature Pulse Rate 81 85 86 Pulse Rate [ Bilateral Throughout] Pulse Rate [ From Monitor] Respiratory 26 H 26 H 26 H Rate Respiratory Rate [Bilateral Throughout] Blood Pressure 138/75 140/83 150/85 O2 Sat by Pulse 100 100 100 Oximetry 04/23/21 04/23/21 04/23/21 22:02 22:10 22:20 Temperature Pulse Rate 86 86 84 Pulse Rate [ Bilateral Throughout] Pulse Rate [ From Monitor] Respiratory 26 H 26 H 26 H Rate Respiratory Rate [Bilateral Throughout] Blood Pressure 150/85 150/85 144/78 O2 Sat by Pulse 100 100 100 Oximetry 04/23/21 04/23/21 04/23/21 22:30 22:40 22:50 Temperature Pulse Rate 87 87 87 Pulse Rate [ Bilateral Throughout] Pulse Rate [ From Monitor] Respiratory 26 H 26 H 26 H Rate Respiratory Rate [Bilateral Throughout] Blood Pressure 141/78 141/78 141/78 O2 Sat by Pulse 100 100 100 Oximetry 04/23/21 04/23/21 04/23/21 23:00 23:10 23:20 Temperature Pulse Rate 86 81 86 Pulse Rate [ Bilateral Throughout] Pulse Rate [ From Monitor] Respiratory H H 26 H Rate Respiratory Rate [Bilateral Throughout] Blood Pressure 133/75 133/75 138/80 O2 Sat by Pulse 100 100 100 Oximetry 04/23/21 04/23/21 04/23/21 23:30 23:31 23:40 Temperature 99.8 F H Pulse Rate 87 84 Pulse Rate [ Bilateral Throughout] Pulse Rate [ From Monitor] Respiratory H 26 H Rate Respiratory Rate [Bilateral Throughout] Blood Pressure 137/74 137/74 O2 Sat by Pulse 100 100 Oximetry 04/23/21 04/24/21 04/24/21 23:50 00:00 00:06 Temperature Pulse Rate 87 86 88 Pulse Rate [ Bilateral Throughout] Pulse Rate [ 86 From Monitor] Respiratory H H Rate Respiratory Rate [Bilateral Throughout] Blood Pressure 135/73 135/73 136/76 O2 Sat by Pulse 100 100 100 Oximetry 04/24/21 04/24/21 04/24/21 00:10 00:20 00:30 Temperature Pulse Rate 84 87 86 Pulse Rate [ Bilateral Throughout] Pulse Rate [ From Monitor] Respiratory H 26 H 26 H Rate Respiratory Rate [Bilateral Throughout] Blood Pressure 136/76 135/73 138/78 O2 Sat by Pulse 100 100 100 Oximetry 04/24/21 04/24/21 04/24/21 00:40 00:50 01:00 Temperature Pulse Rate 88 91 H 88 Pulse Rate [ Bilateral Throughout] Pulse Rate [ From Monitor] Respiratory H 26 H 26 H Rate Respiratory Rate [Bilateral Throughout] Blood Pressure 138/78 142/80 151/82 O2 Sat by Pulse 100 100 100 Oximetry 04/24/21 04/24/21 04/24/21 01:10 01:20 01:30 Temperature Pulse Rate 88 89 89 Pulse Rate [ Bilateral Throughout] Pulse Rate [ From Monitor] Respiratory H 26 H 26 H Rate Respiratory Rate [Bilateral Throughout] Blood Pressure 151/82 150/79 150/83 O2 Sat by Pulse 100 100 100 Oximetry 04/24/21 04/24/21 04/24/21 01:40 01:50 02:00 Temperature Pulse Rate 88 87 89 Pulse Rate [ Bilateral Throughout] Pulse Rate [ From Monitor] Respiratory H 26 H 26 H Rate Respiratory Rate [Bilateral Throughout] Blood Pressure 150/83 145/84 150/81 O2 Sat by Pulse 100 100 100 Oximetry 04/24/21 04/24/21 04/24/21 02:10 02:14 02:20 Temperature Pulse Rate 88 89 Pulse Rate [ 88 Bilateral Throughout] Pulse Rate [ From Monitor] Respiratory 26 H 26 H Rate Respiratory 26 H Rate [Bilateral Throughout] Blood Pressure 150/81 148/79 O2 Sat by Pulse 100 100 Oximetry 04/24/21 04/24/21 04/24/21 02:30 02:40 02:50 Temperature Pulse Rate 90 90 90 Pulse Rate [ Bilateral Throughout] Pulse Rate [ From Monitor] Respiratory 26 H 26 H 26 H Rate Respiratory Rate [Bilateral Throughout] Blood Pressure 155/84 155/84 159/85 O2 Sat by Pulse 100 100 100 Oximetry 04/24/21 04/24/21 04/24/21 03:00 03:10 03:20 Temperature Pulse Rate 90 91 H 91 H Pulse Rate [ Bilateral Throughout] Pulse Rate [ From Monitor] Respiratory 26 H 26 H 26 H Rate Respiratory Rate [Bilateral Throughout] Blood Pressure 160/83 160/83 165/84 O2 Sat by Pulse 100 100 100 Oximetry 04/24/21 04/24/21 04/24/21 03:22 03:30 03:40 Temperature 99.4 F Pulse Rate 91 H 92 H Pulse Rate [ Bilateral Throughout] Pulse Rate [ From Monitor] Respiratory 26 H 26 H Rate Respiratory Rate [Bilateral Throughout] Blood Pressure 165/85 165/85 O2 Sat by Pulse 100 100 Oximetry 04/24/21 04/24/21 04/24/21 03:50 04:00 04:10 Temperature Pulse Rate 92 H 92 H 96 H Pulse Rate [ Bilateral Throughout] Pulse Rate [ 93 H From Monitor] Respiratory 26 H 26 H 26 H Rate Respiratory Rate [Bilateral Throughout] Blood Pressure 160/86 159/84 159/84 O2 Sat by Pulse 100 100 100 Oximetry 04/24/21 04/24/21 04/24/21 04:20 04:30 04:40 Temperature Pulse Rate 94 H 94 H 94 H Pulse Rate [ Bilateral Throughout] Pulse Rate [ From Monitor] Respiratory 25 H 26 H 26 H Rate Respiratory Rate [Bilateral Throughout] Blood Pressure 160/81 156/81 159/81 O2 Sat by Pulse 100 100 100 Oximetry 04/24/21 04/24/21 04/24/21 04:50 05:00 05:10 Temperature Pulse Rate 94 H 94 H 93 H Pulse Rate [ Bilateral Throughout] Pulse Rate [ From Monitor] Respiratory H 26 H 26 H Rate Respiratory Rate [Bilateral Throughout] Blood Pressure 156/81 161/81 161/81 O2 Sat by Pulse 100 99 99 Oximetry 04/24/21 04/24/21 04/24/21 05:20 05:30 05:40 Temperature Pulse Rate 94 H 94 H 93 H Pulse Rate [ Bilateral Throughout] Pulse Rate [ From Monitor] Respiratory H 26 H 26 H Rate Respiratory Rate [Bilateral Throughout] Blood Pressure 164/78 158/79 158/79 O2 Sat by Pulse 100 100 99 Oximetry 04/24/21 04/24/21 04/24/21 05:50 06:00 06:10 Temperature Pulse Rate 93 H 93 H 93 H Pulse Rate [ Bilateral Throughout] Pulse Rate [ From Monitor] Respiratory H 26 H 26 H Rate Respiratory Rate [Bilateral Throughout] Blood Pressure 161/80 161/75 161/75 O2 Sat by Pulse 100 100 100 Oximetry 04/24/21 04/24/21 04/24/21 06:20 06:30 06:40 Temperature Pulse Rate 94 H 93 H 93 H Pulse Rate [ Bilateral Throughout] Pulse Rate [ From Monitor] Respiratory H 26 H 26 H Rate Respiratory Rate [Bilateral Throughout] Blood Pressure 163/76 161/79 161/79 O2 Sat by Pulse 100 100 100 Oximetry 04/24/21 04/24/21 04/24/21 06:50 07:00 07:10 Temperature Pulse Rate 93 H 93 H 94 H Pulse Rate [ Bilateral Throughout] Pulse Rate [ From Monitor] Respiratory H 26 H 26 H Rate Respiratory Rate [Bilateral Throughout] Blood Pressure 163/76 163/80 163/80 O2 Sat by Pulse 100 100 100 Oximetry 04/24/21 04/24/21 04/24/21 07:20 07:30 07:40 Temperature Pulse Rate 93 H 93 H 93 H Pulse Rate [ Bilateral Throughout] Pulse Rate [ From Monitor] Respiratory H 26 H 23 Rate Respiratory Rate [Bilateral Throughout] Blood Pressure 165/80 166/80 166/80 O2 Sat by Pulse 100 96 100 Oximetry 04/24/21 04/24/21 07:55 08:00 Temperature 98 F Pulse Rate 93 H 93 H Pulse Rate [ Bilateral Throughout] Pulse Rate [ From Monitor] Respiratory 26 H 26 H Rate Respiratory Rate [Bilateral Throughout] Blood Pressure 166/82 O2 Sat by Pulse 100 100 Oximetry - General Apperance Constitutional: comfortable, other (intubated and sedated no response to command or sternal rub.) - EENT EENT: PERRL, mucous membranes moist - Respiratory Respiratory: chest non-tender, lungs clear, crackles - Cardiovascular Cardiovascular: regular rate, normal S1, normal S2 Extremities: no peripheral edema bilat - Gastrointestinal Gastrointestinal: normoactive bowel sounds - Integumentary Integumentary: normal - Neurologic Cranial nerve examination: other (pupils constricted and reactive ,NO EOM,NO corneal no gag ) Speech examination: other (intubated and sedated ) Detailed motor examination: other (No response or movment to pain stimuli) - Laboratory Findings CBC and BMP: 04/24/21 07:03 04/24/21 07:03 Abnormal Lab Findings: Abnormal Labs 04/22/21 04/22/21 04/22/21 18:12 18:12 18:12 WBC 14.6 H RBC Hgb Hct MCV 102 H MCH 33 H Lymph % (Auto) Lymph # (Auto) Nye # (Auto) Seg Neutrophils % 70.8 H Seg Neutrophils # 10.3 H INR 1.17 H D-Dimer ABG pH POC ABG pCO2 POC ABG pO2 ABG Sodium ABG Potassium ABG Glucose Carboxyhemoglobin Potassium Chloride 93.4 L Carbon Dioxide 21 L BUN Creatinine Glucose 186 H POC Glucose Lactic Acid Lactate Dehydrogenase Troponin T 0.031 H C-Reactive Protein NT-Pro-B Natriuret Pep 2448 H Arterial Blood Glucose Arterial Blood Ionized Calcium Urine Creatinine Urine Total Protein 04/22/21 04/22/21 04/22/21 18:12 19:17 20:58 WBC RBC Hgb Hct MCV MCH Lymph % (Auto) Lymph # (Auto) Nye # (Auto) Seg Neutrophils % Seg Neutrophils # INR D-Dimer ABG pH POC ABG pCO2 POC ABG pO2 ABG Sodium ABG Potassium ABG Glucose Carboxyhemoglobin Potassium Chloride Carbon Dioxide BUN Creatinine Glucose POC Glucose Lactic Acid 11.00 H* 9.50 H* 5.70 H* Lactate Dehydrogenase Troponin T C-Reactive Protein NT-Pro-B Natriuret Pep Arterial Blood Glucose Arterial Blood Ionized Calcium Urine Creatinine Urine Total Protein 04/22/21 04/22/21 04/22/21 20:58 21:10 23:03 WBC RBC Hgb Hct MCV MCH Lymph % (Auto) Lymph # (Auto) Nye # (Auto) Seg Neutrophils % Seg Neutrophils # INR D-Dimer ABG pH 7.492 H POC ABG pCO2 30.4 L POC ABG pO2 80.3 L ABG Sodium ABG Potassium 3.2 L ABG Glucose 202 H Carboxyhemoglobin 1.6 H Potassium Chloride Carbon Dioxide BUN Creatinine Glucose POC Glucose 175 H Lactic Acid Lactate Dehydrogenase Troponin T 0.363 H* D C-Reactive Protein NT-Pro-B Natriuret Pep Arterial Blood Glucose 202 H Arterial Blood Ionized Calcium 4.2 L Urine Creatinine Urine Total Protein 04/22/21 04/23/21 04/23/21 23:40 02:36 02:36 WBC 14.6 H RBC Hgb Hct MCV 97 H MCH 33 H Lymph % (Auto) 3.6 L Lymph # (Auto) 0.5 L Nye # (Auto) 1.0 H Seg Neutrophils % 89.4 H Seg Neutrophils # 13.0 H INR D-Dimer ABG pH POC ABG pCO2 POC ABG pO2 ABG Sodium ABG Potassium ABG Glucose Carboxyhemoglobin Potassium Chloride Carbon Dioxide BUN Creatinine Glucose POC Glucose Lactic Acid 3.60 H* Lactate Dehydrogenase Troponin T 1.020 H* D C-Reactive Protein NT-Pro-B Natriuret Pep Arterial Blood Glucose Arterial Blood Ionized Calcium Urine Creatinine Urine Total Protein 04/23/21 04/23/21 04/23/21 02:36 03:54 05:22 WBC RBC Hgb Hct MCV MCH Lymph % (Auto) Lymph # (Auto) Nye # (Auto) Seg Neutrophils % Seg Neutrophils # INR D-Dimer ABG pH 7.536 H POC ABG pCO2 31.1 L POC ABG pO2 112.7 H ABG Sodium ABG Potassium 3.3 L ABG Glucose 129 H Carboxyhemoglobin Potassium Chloride 97.4 L Carbon Dioxide BUN 21 H Creatinine 1.6 H Glucose 145 H POC Glucose 123 H Lactic Acid Lactate Dehydrogenase Troponin T C-Reactive Protein NT-Pro-B Natriuret Pep Arterial Blood Glucose 129 H Arterial Blood Ionized Calcium 4.1 L Urine Creatinine Urine Total Protein 04/23/21 04/23/21 04/23/21 08:58 08:58 08:58 WBC RBC Hgb Hct MCV MCH Lymph % (Auto) Lymph # (Auto) Nye # (Auto) Seg Neutrophils % Seg Neutrophils # INR D-Dimer 8003.00 H ABG pH POC ABG pCO2 POC ABG pO2 ABG Sodium ABG Potassium ABG Glucose Carboxyhemoglobin Potassium Chloride Carbon Dioxide BUN Creatinine Glucose POC Glucose Lactic Acid 2.40 H* Lactate Dehydrogenase 546 H Troponin T C-Reactive Protein 2.20 H NT-Pro-B Natriuret Pep Arterial Blood Glucose Arterial Blood Ionized Calcium Urine Creatinine Urine Total Protein 04/23/21 04/23/21 04/23/21 12:07 13:46 17:29 WBC RBC Hgb Hct MCV MCH Lymph % (Auto) Lymph # (Auto) Nye # (Auto) Seg Neutrophils % Seg Neutrophils # INR D-Dimer ABG pH POC ABG pCO2 POC ABG pO2 ABG Sodium ABG Potassium ABG Glucose Carboxyhemoglobin Potassium Chloride Carbon Dioxide BUN Creatinine Glucose POC Glucose 150 H 145 H Lactic Acid Lactate Dehydrogenase Troponin T C-Reactive Protein NT-Pro-B Natriuret Pep Arterial Blood Glucose Arterial Blood Ionized Calcium Urine Creatinine 90.4 H Urine Total Protein 103 H 04/23/21 04/24/21 04/24/21 23:51 04:01 05:02 WBC RBC Hgb Hct MCV MCH Lymph % (Auto) Lymph # (Auto) Nye # (Auto) Seg Neutrophils % Seg Neutrophils # INR D-Dimer ABG pH 7.485 H POC ABG pCO2 POC ABG pO2 ABG Sodium 135.8 L ABG Potassium ABG Glucose 140 H Carboxyhemoglobin Potassium Chloride Carbon Dioxide BUN Creatinine Glucose POC Glucose 140 H 136 H Lactic Acid Lactate Dehydrogenase Troponin T C-Reactive Protein NT-Pro-B Natriuret Pep Arterial Blood Glucose 140 H Arterial Blood Ionized Calcium 4.3 L Urine Creatinine Urine Total Protein 04/24/21 04/24/21 07:03 07:03 WBC 12.4 H RBC 3.60 L Hgb 11.7 L Hct 34.7 L MCV 96 H MCH 33 H Lymph % (Auto) Lymph # (Auto) Nye # (Auto) Seg Neutrophils % Seg Neutrophils # INR D-Dimer ABG pH POC ABG pCO2 POC ABG pO2 ABG Sodium ABG Potassium ABG Glucose Carboxyhemoglobin Potassium 3.5 L Chloride Carbon Dioxide BUN 28 H Creatinine 2.2 H Glucose 133 H POC Glucose Lactic Acid Lactate Dehydrogenase Troponin T C-Reactive Protein NT-Pro-B Natriuret Pep Arterial Blood Glucose Arterial Blood Ionized Calcium Urine Creatinine Urine Total Protein
[2021-04-24] MEDS: carvediloL 25 MG TAB PO SCH (08:31)
[2021-04-24] MEDS: hydrALAZINE 25 MG TAB PO SCH ×3 (08:31→21:50)
[2021-04-24] MEDS: RANOLAZINE ER 500 MG TAB 12HR PO SCH ×2 (09:17→21:49)
[2021-04-24] MEDS: levETIRAcetam 750 MG in DEXTROSE 5% IN WATER 100 ML IV SCH ×2 (09:23→21:49)
[2021-04-24] MEDS: CLOPIDOGREL 75 MG TAB PO SCH (09:24)
[2021-04-24] MEDS: ASPIRIN 325 MG TAB PO SCH (09:24)
[2021-04-24] MEDS: amLODIPine 10 MG TAB PO SCH (09:24)
[2021-04-24] MEDS: cefTRIAXone/NS 2 GM/100 ML 2 GM/100 ML BAG IV SCH (09:25)
[2021-04-24] MEDS ORDERED: FAMOTIDINE 20 MG/2 ML INJ IV SCH (10:00)
--- NOTE | 2021-04-24 11:23 | Progress Note ---
Assessment and Plan - Patient Problems (1) Cardiac arrest Current Visit: Yes Status: Acute Plan to address problem: 65-year-old man with history of complex inoperable three-vessel coronary artery disease and ischemic cardiomyopathy, regularly followed up with Dr. Herzog at [facility], presents now with an out of hospital cardiopulmonary arrest. Currently in normal sinus rhythm with labile hemodynamics in the ICU, but the immediate concern is with regards to possible anoxic encephalopathy. Continue supportive management and guideline directed medical therapy as tolerated. Subjective Date of service: 04/24/21 Principal diagnosis: Post cardiac arrest and possible anoxic brain injury Interval history: Patient is unresponsive, on the vent in the ICU, following a witnessed cardiac arrest at his home. It is reported that there was no bystander CPR, and ACLS protocol was only initiated after the ambulance arrived at the scene. The patient has a long complex history of coronary artery disease and ischemic cardiomyopathy for which he followed routinely with a drapery estimator at [facility]. He has had previous coronary artery bypass, following which he underwent coronary stenting, and due to progressive coronary artery disease and failure of revascularization interventions, he ultimately underwent tr ansmyocardial laser resection. On his previous records, his left ventricular ejection fraction was reported at 30 to 35%. On this presentation, current echocardiogram shows an ejection fraction of 20 to 25%, with moderate mitral regurgitation. EKG is sinus tachycardia with left bundle branch block. Objective Vital Signs Temp Pulse Pulse Pulse Resp Resp BP 04/24/21 10:10 95 H 26 H 172/82 04/24/21 10:00 96 H 26 H 174/84 04/24/21 09:50 95 H 26 H 180/90 04/24/21 09:40 96 H 26 H 185/99 04/24/21 09:30 96 H 26 H 185/99 04/24/21 09:24 96 H 176/90 04/24/21 09:21 94 H 26 H 04/24/21 09:20 95 H 26 H 176/90 04/24/21 09:11 95 H 04/24/21 09:10 95 H 26 H 183/90 04/24/21 09:00 95 H 26 H 183/90 04/24/21 08:50 95 H 27 H 183/90 04/24/21 08:40 95 H 26 H 179/89 04/24/21 08:31 96 H 179/89 04/24/21 08:30 95 H 26 H 179/89 04/24/21 08:20 95 H 26 H 176/89 04/24/21 08:10 94 H 26 H 160/77 04/24/21 08:00 98 F 93 H 92 H 26 H 166/82 04/24/21 07:55 93 H 26 H 04/24/21 07:40 93 H 23 166/80 04/24/21 07:30 93 H 26 H 166/80 04/24/21 07:20 93 H 26 H 165/80 04/24/21 07:10 94 H 26 H 163/80 04/24/21 07:00 93 H 26 H 163/80 04/24/21 06:50 93 H 26 H 163/76 04/24/21 06:40 93 H 26 H 161/79 04/24/21 06:30 93 H 26 H 161/79 04/24/21 06:20 94 H 26 H 163/76 04/24/21 06:10 93 H 26 H 161/75 04/24/21 06:00 93 H 26 H 161/75 04/24/21 05:50 93 H 26 H 161/80 04/24/21 05:40 93 H 26 H 158/79 04/24/21 05:30 94 H 26 H 158/79 04/24/21 05:20 94 H 26 H 164/78 04/24/21 05:10 93 H 26 H 161/81 04/24/21 05:00 94 H 26 H 161/81 04/24/21 04:50 94 H 26 H 156/81 04/24/21 04:40 94 H 26 H 159/81 04/24/21 04:30 94 H 26 H 156/81 04/24/21 04:20 94 H 25 H 160/81 04/24/21 04:10 96 H 26 H 159/84 04/24/21 04:00 92 H 93 H 26 H 159/84 04/24/21 03:50 92 H 26 H 160/86 04/24/21 03:40 92 H 26 H 165/85 04/24/21 03:30 91 H 26 H 165/85 04/24/21 03:22 99.4 F 04/24/21 03:20 91 H 26 H 165/84 04/24/21 03:10 91 H 26 H 160/83 04/24/21 03:00 90 26 H 160/83 04/24/21 02:50 90 26 H 159/85 04/24/21 02:40 90 26 H 155/84 04/24/21 02:30 90 26 H 155/84 04/24/21 02:20 89 26 H 148/79 04/24/21 02:14 88 26 H 04/24/21 02:10 88 26 H 150/81 04/24/21 02:00 89 26 H 150/81 04/24/21 01:50 87 26 H 145/84 04/24/21 01:40 88 26 H 150/83 04/24/21 01:30 89 26 H 150/83 04/24/21 01:20 89 26 H 150/79 04/24/21 01:10 88 26 H 151/82 04/24/21 01:00 88 26 H 151/82 04/24/21 00:50 91 H 26 H 142/80 04/24/21 00:40 88 26 H 138/78 04/24/21 00:30 86 26 H 138/78 04/24/21 00:20 87 26 H 135/73 04/24/21 00:10 84 26 H 136/76 04/24/21 00:06 88 136/76 04/24/21 00:00 86 86 26 H 135/73 04/23/21 23:50 87 26 H 135/73 04/23/21 23:40 84 26 H 137/74 04/23/21 23:31 99.8 F H 04/23/21 23:30 87 26 H 137/74 04/23/21 23:20 86 26 H 138/80 04/23/21 23:10 81 26 H 133/75 04/23/21 23:00 86 26 H 133/75 04/23/21 22:50 87 26 H 141/78 04/23/21 22:40 87 26 H 141/78 04/23/21 22:30 87 26 H 141/78 04/23/21 22:20 84 26 H 144/78 04/23/21 22:10 86 26 H 150/85 04/23/21 22:02 86 26 H 150/85 04/23/21 22:00 86 26 H 150/85 05/21 21:50 85 26 H 140/83 04/23/21 21:40 81 26 H 138/75 04/23/21 21:30 81 26 H 138/75 04/23/21 21:27 82 134/75 04/23/21 21:20 80 26 H 134/75 04/23/21 21:10 83 26 H 135/77 04/23/21 21:00 83 26 H 135/77 04/23/21 20:50 82 26 H 126/72 04/23/21 20:40 78 26 H 117/69 04/23/21 20:30 80 26 H 117/69 04/23/21 20:20 78 26 H 111/64 04/23/21 20:10 77 26 H 106/61 04/23/21 20:00 78 78 26 H 106/61 04/23/21 19:50 78 26 H 98/56 04/23/21 19:41 76 109/62 04/23/21 19:40 78 26 H 109/62 04/23/21 19:30 82 26 H 109/62 04/23/21 19:28 99.7 F H 85 21 04/23/21 19:20 84 25 H 112/68 04/23/21 19:10 84 26 H 107/66 04/23/21 19:00 84 26 H 115/71 04/23/21 18:50 87 26 H 115/71 04/23/21 18:40 89 26 H 118/71 04/23/21 18:30 91 H 25 H 118/71 04/23/21 18:20 90 25 H 132/74 04/23/21 18:10 90 25 H 135/79 04/23/21 18:00 92 H 26 H 135/79 04/23/21 17:50 94 H 26 H 146/84 04/23/21 17:40 93 H 26 H 139/85 04/23/21 17:30 95 H 26 H 151/86 04/23/21 17:20 91 H 26 H 161/92 04/23/21 17:10 95 H 25 H 140/79 04/23/21 17:00 90 26 H 139/85 04/23/21 16:52 87 140/79 04/23/21 16:50 87 26 H 140/79 04/23/21 16:40 87 26 H 143/83 04/23/21 16:30 88 26 H 143/83 04/23/21 16:20 86 26 H 142/81 04/23/21 16:10 87 26 H 142/83 04/23/21 16:00 98.8 F 85 85 26 H 142/83 04/23/21 15:50 87 26 H 122/80 04/23/21 15:40 85 25 H 115/70 04/23/21 15:30 82 26 H 131/74 04/23/21 15:20 80 26 H 115/70 04/23/21 15:10 84 28 H 120/67 04/23/21 15:00 80 82 26 H 26 H 115/68 04/23/21 14:50 83 26 H 120/67 04/23/21 14:40 82 26 H 125/64 04/23/21 14:30 85 26 H 118/66 04/23/21 14:20 85 26 H 119/66 04/23/21 14:10 87 26 H 122/65 04/23/21 14:00 87 26 H 122/65 04/23/21 13:50 90 26 H 125/64 04/23/21 13:40 83 26 H 123/65 04/23/21 13:35 90 123/65 04/23/21 13:30 90 26 H 123/65 04/23/21 13:20 94 H 26 H 140/65 04/23/21 13:10 94 H 26 H 147/74 04/23/21 13:00 95 H 26 H 158/78 04/23/21 12:50 97 H 26 H 158/78 04/23/21 12:40 100 H 26 H 192/90 04/23/21 12:30 104 H 26 H 192/90 04/23/21 12:20 112 H 49 H 222/112 04/23/21 12:15 110 H 209/103 04/23/21 12:10 107 H 28 H 209/103 04/23/21 12:00 98.9 F 104 H 104 H 26 H 209/103 04/23/21 11:50 101 H 26 H 196/96 04/23/21 11:40 97 H 23 187/90 04/23/21 11:37 95 H 196/93 04/23/21 11:30 97 H 26 H 196/93 04/23/21 11:20 95 H 26 H 187/90 Pulse Ox 04/24/21 10:10 99 04/24/21 10:00 99 04/24/21 09:50 99 04/24/21 09:40 99 04/24/21 09:30 99 04/24/21 09:24 04/24/21 09:21 04/24/21 09:20 100 04/24/21 09:11 99 04/24/21 09:10 100 04/24/21 09:00 100 04/24/21 08:50 100 04/24/21 08:40 100 04/24/21 08:31 04/24/21 08:30 100 04/24/21 08:20 100 04/24/21 08:10 100 04/24/21 08:00 100 04/24/21 07:55 100 04/24/21 07:40 100 04/24/21 07:30 96 04/24/21 07:20 100 04/24/21 07:10 100 04/24/21 07:00 100 04/24/21 06:50 100 04/24/21 06:40 100 04/24/21 06:30 100 04/24/21 06:20 100 04/24/21 06:10 100 04/24/21 06:00 100 04/24/21 05:50 100 04/24/21 05:40 99 04/24/21 05:30 100 04/24/21 05:20 100 04/24/21 05:10 99 04/24/21 05:00 99 04/24/21 04:50 100 04/24/21 04:40 100 04/24/21 04:30 100 04/24/21 04:20 100 04/24/21 04:10 100 04/24/21 04:00 100 04/24/21 03:50 100 04/24/21 03:40 100 04/24/21 03:30 100 04/24/21 03:22 04/24/21 03:20 100 04/24/21 03:10 100 04/24/21 03:00 100 04/24/21 02:50 100 04/24/21 02:40 100 04/24/21 02:30 100 04/24/21 02:20 100 04/24/21 02:14 04/24/21 02:10 100 04/24/21 02:00 100 04/24/21 01:50 100 04/24/21 01:40 100 04/24/21 01:30 100 04/24/21 01:20 100 04/24/21 01:10 100 04/24/21 01:00 100 04/24/21 00:50 100 04/24/21 00:40 100 04/24/21 00:30 100 04/24/21 00:20 100 04/24/21 00:10 100 04/24/21 00:06 100 04/24/21 00:00 100 04/23/21 23:50 100 04/23/21 23:40 100 04/23/21 23:31 04/23/21 23:30 100 04/23/21 23:20 100 04/23/21 23:10 100 04/23/21 23:00 100 04/23/21 22:50 100 04/23/21 22:40 100 04/23/21 22:30 100 04/23/21 22:20 100 04/23/21 22:10 100 04/23/21 22:02 100 04/23/21 22:00 100 04/23/21 21:50 100 04/23/21 21:40 100 04/23/21 21:30 100 04/23/21 21:27 04/23/21 21:20 100 04/23/21 21:10 100 04/23/21 21:00 100 04/23/21 20:50 100 04/23/21 20:40 100 04/23/21 20:30 100 04/23/21 20:20 100 04/23/21 20:10 100 04/23/21 20:00 100 04/23/21 19:50 100 04/23/21 19:41 05 19:40 100 04/23/21 19:30 100 04/23/21 19:28 04/23/21 19:20 99 04/23/21 19:10 99 04/23/21 19:00 99 04/23/21 18:50 99 05 18:40 99 04/23/21 18:30 100 05 18:20 100 04/23/21 18:10 100 05 18:00 100 0531/21 17:50 100 04/23/21 17:40 100 04/23/21 17:30 100 04/23/21 17:20 100 04/23/21 17:10 100 04/23/21 17:00 100 04/23/21 16:52 100 04/23/21 16:50 100 04/23/21 16:40 100 04/23/21 16:30 100 04/23/21 16:20 100 04/23/21 16:10 100 04/23/21 16:00 100 04/23/21 15:50 100 04/23/21 15:40 99 04/23/21 15:30 99 04/23/21 15:20 99 04/23/21 15:10 99 04/23/21 15:00 100 04/23/21 14:50 99 04/23/21 14:40 99 04/23/21 14:30 99 04/23/21 14:20 99 04/23/21 14:10 98 04/23/21 14:00 98 04/23/21 13:50 98 04/23/21 13:40 98 04/23/21 13:35 04/23/21 13:30 98 04/23/21 13:20 98 04/23/21 13:10 98 04/23/21 13:00 98 04/23/21 12:50 98 04/23/21 12:40 98 04/23/21 12:30 99 04/23/21 12:20 99 04/23/21 12:15 99 04/23/21 12:10 99 04/23/21 12:00 99 04/23/21 11:50 99 04/23/21 11:40 99 04/23/21 11:37 04/23/21 11:30 99 04/23/21 11:20 99 - Physical Examination General: Other (Unresponsive, on the vent) HEENT: Positive: Mucus Membranes Moist, Other (Pupils fixed) Neck: Positive: neck supple. Negative: JVD/HJR Cardiac: Positive: Reg Rate and Rhythm Lungs: Positive: Decreased Breath Sounds Neuro: Positive: Other (Unresponsive, on the vent) Abdomen: Positive: Soft, Active Bowel Sounds Skin: Positive: Clear Extremities: Absent: edema - Labs and Meds Cardiac Enzymes 04/23/21 Range/Units 08:58 Lactate Dehydrogenase 546 H (91-180) units/L CBC 04/24/21 Range/Units 07:03 WBC 12.4 H (4.5-11.0) K/mm3 RBC 3.60 L (3.65-5.03) M/mm3 Hgb 11.7 L (11.8-15.2) gm/dl Hct 34.7 L (35.5-45.6) % Plt Count 142 (140-440) K/mm3 Comprehensive Metabolic Panel 04/24/21 Range/Units 07:03 Sodium 139 (137-145) mmol/L Potassium 3.5 L (3.6-5.0) mmol/L Chloride 100.9 (98-107) mmol/L Carbon Dioxide 27 (22-30) mmol/L BUN 28 H (9-20) mg/dL Creatinine 2.2 H (0.8-1.3) mg/dL Glucose 133 H (75-100) mg/dL Calcium 8.4 (8.4-10.2) mg/dL
--- NOTE | 2021-04-24 12:19 | Progress Note ---
Assessment and Plan Cardiac arrest with ROSC Acute hypoxemic respiratory failure Acute kidney injury secondary to vasomotor nephropathy COVID-19 PUI NSTEMI Acute Encephalopathy Myoclonic jerks vs Seizures Lactic acidosis Elevated D-dimer CAD s/p CABG x3 Ischemic cardiomyopathy with EF of 40 to 45% Hypertension Hyperlipidemia CVA Diabetes type II - discontinue IVNS after current bag - discontinue empiric AB's after >/= 2 hours of negative blood cultures - reduce set rate to 16/min - KCL 20 meq p.o. X 1 - prn vasopressors for target MAP > 65 mmHg - inotropic support per cardiology recommendations - continue to wean supplemental oxygen for target O2 sat's > 90% acutely - VAP bundle addressed - continue lung protective strategies - continue bronchodilators with pulmonary hygiene per RT - wean per pulmonary driven protocols otherwise - continue Daily SAT and SBT assessment as tolerated - continue accuchecks with glycemic control per SSI (While critically ill target blood glucose of 140-180 mg/dL; avoid hypoglycemia) - sedation prn for target RASS 0 to -1 - avoid nephrotoxins, renally dose all medications - continue to avoid benzodiazepine's, reduce the possibility of delirium - AB's per ID rec's - prn analgesia per CPOT score - Maintenance of sleep-wake cycle, avoid delirium - enteral nutritional support at goal rate as tolerated - G.I. & VTE prophylaxis - PT/OT/ROM exercises - mobility protocols for pressure ulcer prophylaxis - Monitor hemodynamics closely - continue other care per attending / other consultants - discharge planning ongoing concurrently COVID SPECIFIC INTERVENTIONS - Remdesivir as per ID/Pulmonary developed protocols - consider systemic steroids for severe COVID-19 infection empirically - follow repeat COVID tests results - zinc and vitamin C supplementation - Monitor inflammatory markers per facility protocol - ferritin, Ddimer, CRP - consider therapeutic anticoagulation per system Protocol based on d-dimer and clinical considerations - Continue contact and airborne isolation .... Re-evaluate in am & prn CONDITION: CRITICAL PROGNOSIS: GUARDED CODE STATUS: FULL CODE The high probability of a clinically significant, sudden or life-threatening deterioration of the [respiratory, cardiovascular & neurologic] system(s) required my full and direct attention, intervention and personal management. The aggregate critical care time was [36] minutes without overlap. Time includes spent on; [x] Data Review and interpretation [x] Patient assessment and monitoring of vital signs [x] Documentation [x] Medication orders and management Subjective Date of service: 04/24/21 Principal diagnosis: Cardiac; DELMI; Ac hypoxemic resp failure; Ac Encephalopathy; HFrEF; DM II Interval history: Patient is seen today for: Cardiac arrest with ROSC; DELMI; Acute hypoxemic respiratory failure; PUI COVID-19; NSTEMI; Acute Encephalopathy Myoclonic jerks vs Seizures; Ischemic cardiomyopathy with EF of 20 to 25%; DM II; H/O CVA Seen and examined at bedside; 24hour events reviewed; nursing and respiratory care staff consulted; no adverse overnight events reported to me; resting peacefully in bed; remains on MVS; AMS is persistent; no emesis or overt aspiration; myoclonic jerks improved Objective Vital Signs - 12hr 04/24/21 04/24/21 04/24/21 00:20 00:30 00:40 Temperature Pulse Rate 87 86 88 Pulse Rate [ Bilateral Throughout] Pulse Rate [ From Monitor] Respiratory 26 H 26 H 26 H Rate Respiratory Rate [Bilateral Throughout] Blood Pressure 135/73 138/78 138/78 O2 Sat by Pulse 100 100 100 Oximetry 04/24/21 04/24/21 04/24/21 00:50 01:00 01:10 Temperature Pulse Rate 91 H 88 88 Pulse Rate [ Bilateral Throughout] Pulse Rate [ From Monitor] Respiratory 26 H 26 H 26 H Rate Respiratory Rate [Bilateral Throughout] Blood Pressure 142/80 151/82 151/82 O2 Sat by Pulse 100 100 100 Oximetry 04/24/21 04/24/21 04/24/21 01:20 01:30 01:40 Temperature Pulse Rate 89 89 88 Pulse Rate [ Bilateral Throughout] Pulse Rate [ From Monitor] Respiratory 26 H 26 H 26 H Rate Respiratory Rate [Bilateral Throughout] Blood Pressure 150/79 150/83 150/83 O2 Sat by Pulse 100 100 100 Oximetry 04/24/21 04/24/21 04/24/21 01:50 02:00 02:10 Temperature Pulse Rate 87 89 88 Pulse Rate [ Bilateral Throughout] Pulse Rate [ From Monitor] Respiratory 26 H 26 H 26 H Rate Respiratory Rate [Bilateral Throughout] Blood Pressure 145/84 150/81 150/81 O2 Sat by Pulse 100 100 100 Oximetry 04/24/21 04/24/21 04/24/21 02:14 02:20 02:30 Temperature Pulse Rate 89 90 Pulse Rate [ 88 Bilateral Throughout] Pulse Rate [ From Monitor] Respiratory 26 H 26 H Rate Respiratory 26 H Rate [Bilateral Throughout] Blood Pressure 148/79 155/84 O2 Sat by Pulse 100 100 Oximetry 04/24/21 04/24/21 04/24/21 02:40 02:50 03:00 Temperature Pulse Rate 90 90 90 Pulse Rate [ Bilateral Throughout] Pulse Rate [ From Monitor] Respiratory 26 H 26 H 26 H Rate Respiratory Rate [Bilateral Throughout] Blood Pressure 155/84 159/85 160/83 O2 Sat by Pulse 100 100 100 Oximetry 04/24/21 04/24/21 04/24/21 03:10 03:20 03:22 Temperature 99.4 F Pulse Rate 91 H 91 H Pulse Rate [ Bilateral Throughout] Pulse Rate [ From Monitor] Respiratory 26 H 26 H Rate Respiratory Rate [Bilateral Throughout] Blood Pressure 160/83 165/84 O2 Sat by Pulse 100 100 Oximetry 04/24/21 04/24/21 04/24/21 03:30 03:40 03:50 Temperature Pulse Rate 91 H 92 H 92 H Pulse Rate [ Bilateral Throughout] Pulse Rate [ From Monitor] Respiratory 26 H 26 H 26 H Rate Respiratory Rate [Bilateral Throughout] Blood Pressure 165/85 165/85 160/86 O2 Sat by Pulse 100 100 100 Oximetry 04/24/21 04/24/21 04/24/21 04:00 04:10 04:20 Temperature Pulse Rate 92 H 96 H 94 H Pulse Rate [ Bilateral Throughout] Pulse Rate [ 93 H From Monitor] Respiratory 26 H 26 H 25 H Rate Respiratory Rate [Bilateral Throughout] Blood Pressure 159/84 159/84 160/81 O2 Sat by Pulse 100 100 100 Oximetry 04/24/21 04/24/21 04/24/21 04:30 04:40 04:50 Temperature Pulse Rate 94 H 94 H 94 H Pulse Rate [ Bilateral Throughout] Pulse Rate [ From Monitor] Respiratory 26 H 26 H 26 H Rate Respiratory Rate [Bilateral Throughout] Blood Pressure 156/81 159/81 156/81 O2 Sat by Pulse 100 100 100 Oximetry 04/24/21 04/24/21 04/24/21 05:00 05:10 05:20 Temperature Pulse Rate 94 H 93 H 94 H Pulse Rate [ Bilateral Throughout] Pulse Rate [ From Monitor] Respiratory 26 H 26 H 26 H Rate Respiratory Rate [Bilateral Throughout] Blood Pressure 161/81 161/81 164/78 O2 Sat by Pulse 99 99 100 Oximetry 04/24/21 04/24/21 04/24/21 05:30 05:40 05:50 Temperature Pulse Rate 94 H 93 H 93 H Pulse Rate [ Bilateral Throughout] Pulse Rate [ From Monitor] Respiratory 26 H 26 H 26 H Rate Respiratory Rate [Bilateral Throughout] Blood Pressure 158/79 158/79 161/80 O2 Sat by Pulse 100 99 100 Oximetry 04/24/21 04/24/21 04/24/21 06:00 06:10 06:20 Temperature Pulse Rate 93 H 93 H 94 H Pulse Rate [ Bilateral Throughout] Pulse Rate [ From Monitor] Respiratory 26 H 26 H 26 H Rate Respiratory Rate [Bilateral Throughout] Blood Pressure 161/75 161/75 163/76 O2 Sat by Pulse 100 100 100 Oximetry 04/24/21 04/24/21 04/24/21 06:30 06:40 06:50 Temperature Pulse Rate 93 H 93 H 93 H Pulse Rate [ Bilateral Throughout] Pulse Rate [ From Monitor] Respiratory H 26 H 26 H Rate Respiratory Rate [Bilateral Throughout] Blood Pressure 161/79 161/79 163/76 O2 Sat by Pulse 100 100 100 Oximetry 04/24/21 04/24/21 04/24/21 07:00 07:10 07:20 Temperature Pulse Rate 93 H 94 H 93 H Pulse Rate [ Bilateral Throughout] Pulse Rate [ From Monitor] Respiratory H 26 H 26 H Rate Respiratory Rate [Bilateral Throughout] Blood Pressure 163/80 163/80 165/80 O2 Sat by Pulse 100 100 100 Oximetry 04/24/21 04/24/21 04/24/21 07:30 07:40 07:55 Temperature Pulse Rate 93 H 93 H 93 H Pulse Rate [ Bilateral Throughout] Pulse Rate [ From Monitor] Respiratory 26 H 23 26 H Rate Respiratory Rate [Bilateral Throughout] Blood Pressure 166/80 166/80 O2 Sat by Pulse 96 100 100 Oximetry 04/24/21 04/24/21 04/24/21 08:00 08:10 08:20 Temperature 98 F Pulse Rate 93 H 94 H 95 H Pulse Rate [ Bilateral Throughout] Pulse Rate [ 92 H From Monitor] Respiratory 26 H 26 H 26 H Rate Respiratory Rate [Bilateral Throughout] Blood Pressure 166/82 160/77 176/89 O2 Sat by Pulse 100 100 100 Oximetry 04/24/21 04/24/21 04/24/21 08:30 08:31 08:40 Temperature Pulse Rate 95 H 96 H 95 H Pulse Rate [ Bilateral Throughout] Pulse Rate [ From Monitor] Respiratory 26 H 26 H Rate Respiratory Rate [Bilateral Throughout] Blood Pressure 179/89 179/89 179/89 O2 Sat by Pulse 100 100 Oximetry 04/24/21 04/24/21 04/24/21 08:50 09:00 09:10 Temperature Pulse Rate 95 H 95 H 95 H Pulse Rate [ Bilateral Throughout] Pulse Rate [ From Monitor] Respiratory 27 H 26 H 26 H Rate Respiratory Rate [Bilateral Throughout] Blood Pressure 183/90 183/90 183/90 O2 Sat by Pulse 100 100 100 Oximetry 04/24/21 04/24/21 04/24/21 09:11 09:20 09:21 Temperature Pulse Rate 95 H 95 H Pulse Rate [ 94 H Bilateral Throughout] Pulse Rate [ From Monitor] Respiratory 26 H Rate Respiratory 26 H Rate [Bilateral Throughout] Blood Pressure 176/90 O2 Sat by Pulse 99 100 Oximetry 04/24/21 04/24/21 04/24/21 09:24 09:30 09:40 Temperature Pulse Rate 96 H 96 H 96 H Pulse Rate [ Bilateral Throughout] Pulse Rate [ From Monitor] Respiratory 26 H 26 H Rate Respiratory Rate [Bilateral Throughout] Blood Pressure 176/90 185/99 185/99 O2 Sat by Pulse 99 99 Oximetry 04/24/21 04/24/21 04/24/21 09:50 10:00 10:10 Temperature Pulse Rate 95 H 96 H 95 H Pulse Rate [ Bilateral Throughout] Pulse Rate [ From Monitor] Respiratory 26 H 26 H 26 H Rate Respiratory Rate [Bilateral Throughout] Blood Pressure 180/90 174/84 172/82 O2 Sat by Pulse 99 99 99 Oximetry 04/24/21 11:12 Temperature Pulse Rate 86 Pulse Rate [ Bilateral Throughout] Pulse Rate [ From Monitor] Respiratory Rate Respiratory Rate [Bilateral Throughout] Blood Pressure 141/66 O2 Sat by Pulse 100 Oximetry Constitutional: no acute distress, other (elderly obese male without significant patient-ventilator dyssynchrony) Eyes: non-icteric ENT: oropharynx moist, oropharyngeal exudate pre (copious), other (ETT 24 cm A TL) Neck: supple, no lymphadenopathy, no JVD Effort: normal Ascultation: Bilateral: diminished breath sounds, rhonchi (scant) Percussion: Bilateral: not dull Cardiovascular: regular rate and rhythm Gastrointestinal: normoactive bowel sounds, soft, non-tender, non-distended (protuberant) Integumentary: other (scars in abdomen and lower extremities) Extremities: no cyanosis, no edema, pulses normal, no ischemia or petechiae Neurologic: pupils equal and round (pin- point), unable to assess Psychiatric: other (unable to assess re: AMS) CBC and BMP: 04/24/21 07:03 04/24/21 07:03 ABG, PT/INR, D-dimer: ABG ABG pH 7.485 (7.320-7.450) H 04/24/21 04:01 POC ABG pCO2 34.6 mmHg (32.0-48.0) 04/24/21 04:01 POC ABG pO2 95.1 mmHg (83-108) 04/24/21 04:01 POC ABG HCO3 25.5 04/24/21 04:01 ABG O2 Saturation 97.6 (0-100) 04/24/21 04:01 PT/INR, D-dimer PT 14.9 Sec. (12.2-14.9) 04/22/21 18:12 INR 1.17 (0.87-1.13) H 04/22/21 18:12 D-Dimer 8003.00 ng/mlDDU (0-234) H 04/23/21 08:58 Abnormal lab findings: Abnormal Labs 04/22/21 04/22/21 04/22/21 18:12 18:12 18:12 WBC 14.6 H RBC Hgb Hct MCV 102 H MCH 33 H Lymph % (Auto) Lymph # (Auto) [place] # (Auto) Seg Neutrophils % 70.8 H Seg Neutrophils # 10.3 H INR 1.17 H D-Dimer ABG pH POC ABG pCO2 POC ABG pO2 ABG Sodium ABG Potassium ABG Glucose Carboxyhemoglobin Potassium Chloride 93.4 L Carbon Dioxide 21 L BUN Creatinine Glucose 186 H POC Glucose Lactic Acid Lactate Dehydrogenase Troponin T 0.031 H C-Reactive Protein NT-Pro-B Natriuret Pep 2448 H Arterial Blood Glucose Arterial Blood Ionized Calcium Urine Creatinine Urine Total Protein 04/22/21 04/22/21 04/22/21 18:12 19:17 20:58 WBC RBC Hgb Hct MCV MCH Lymph % (Auto) Lymph # (Auto) [place] # (Auto) Seg Neutrophils % Seg Neutrophils # INR D-Dimer ABG pH POC ABG pCO2 POC ABG pO2 ABG Sodium ABG Potassium ABG Glucose Carboxyhemoglobin Potassium Chloride Carbon Dioxide BUN Creatinine Glucose POC Glucose Lactic Acid 11.00 H* 9.50 H* 5.70 H* Lactate Dehydrogenase Troponin T C-Reactive Protein NT-Pro-B Natriuret Pep Arterial Blood Glucose Arterial Blood Ionized Calcium Urine Creatinine Urine Total Protein 04/22/21 04/22/21 04/22/21 20:58 21:10 23:03 WBC RBC Hgb Hct MCV MCH Lymph % (Auto) Lymph # (Auto) [place] # (Auto) Seg Neutrophils % Seg Neutrophils # INR D-Dimer ABG pH 7.492 H POC ABG pCO2 30.4 L POC ABG pO2 80.3 L ABG Sodium ABG Potassium 3.2 L ABG Glucose 202 H Carboxyhemoglobin 1.6 H Potassium Chloride Carbon Dioxide BUN Creatinine Glucose POC Glucose 175 H Lactic Acid Lactate Dehydrogenase Troponin T 0.363 H* D C-Reactive Protein NT-Pro-B Natriuret Pep Arterial Blood Glucose 202 H Arterial Blood Ionized Calcium 4.2 L Urine Creatinine Urine Total Protein 04/22/21 04/23/21 04/23/21 23:40 02:36 02:36 WBC 14.6 H RBC Hgb Hct MCV 97 H MCH 33 H Lymph % (Auto) 3.6 L Lymph # (Auto) 0.5 L [place] # (Auto) 1.0 H Seg Neutrophils % 89.4 H Seg Neutrophils # 13.0 H INR D-Dimer ABG pH POC ABG pCO2 POC ABG pO2 ABG Sodium ABG Potassium ABG Glucose Carboxyhemoglobin Potassium Chloride Carbon Dioxide BUN Creatinine Glucose POC Glucose Lactic Acid 3.60 H* Lactate Dehydrogenase Troponin T 1.020 H* D C-Reactive Protein NT-Pro-B Natriuret Pep Arterial Blood Glucose Arterial Blood Ionized Calcium Urine Creatinine Urine Total Protein 04/23/21 04/23/21 04/23/21 02:36 03:54 05:22 WBC RBC Hgb Hct MCV MCH Lymph % (Auto) Lymph # (Auto) [place] # (Auto) Seg Neutrophils % Seg Neutrophils # INR D-Dimer ABG pH 7.536 H POC ABG pCO2 31.1 L POC ABG pO2 112.7 H ABG Sodium ABG Potassium 3.3 L ABG Glucose 129 H Carboxyhemoglobin Potassium Chloride 97.4 L Carbon Dioxide BUN 21 H Creatinine 1.6 H Glucose 145 H POC Glucose 123 H Lactic Acid Lactate Dehydrogenase Troponin T C-Reactive Protein NT-Pro-B Natriuret Pep Arterial Blood Glucose 129 H Arterial Blood Ionized Calcium 4.1 L Urine Creatinine Urine Total Protein 04/23/21 04/23/21 04/23/21 08:58 08:58 08:58 WBC RBC Hgb Hct MCV MCH Lymph % (Auto) Lymph # (Auto) [place] # (Auto) Seg Neutrophils % Seg Neutrophils # INR D-Dimer 8003.00 H ABG pH POC ABG pCO2 POC ABG pO2 ABG Sodium ABG Potassium ABG Glucose Carboxyhemoglobin Potassium Chloride Carbon Dioxide BUN Creatinine Glucose POC Glucose Lactic Acid 2.40 H* Lactate Dehydrogenase 546 H Troponin T C-Reactive Protein 2.20 H NT-Pro-B Natriuret Pep Arterial Blood Glucose Arterial Blood Ionized Calcium Urine Creatinine Urine Total Protein 04/23/21 04/23/21 04/23/21 12:07 13:46 17:29 WBC RBC Hgb Hct MCV MCH Lymph % (Auto) Lymph # (Auto) [place] # (Auto) Seg Neutrophils % Seg Neutrophils # INR D-Dimer ABG pH POC ABG pCO2 POC ABG pO2 ABG Sodium ABG Potassium ABG Glucose Carboxyhemoglobin Potassium Chloride Carbon Dioxide BUN Creatinine Glucose POC Glucose 150 H 145 H Lactic Acid Lactate Dehydrogenase Troponin T C-Reactive Protein NT-Pro-B Natriuret Pep Arterial Blood Glucose Arterial Blood Ionized Calcium Urine Creatinine 90.4 H Urine Total Protein 103 H 04/23/21 04/24/21 04/24/21 23:51 04:01 05:02 WBC RBC Hgb Hct MCV MCH Lymph % (Auto) Lymph # (Auto) [place] # (Auto) Seg Neutrophils % Seg Neutrophils # INR D-Dimer ABG pH 7.485 H POC ABG pCO2 POC ABG pO2 ABG Sodium 135.8 L ABG Potassium ABG Glucose 140 H Carboxyhemoglobin Potassium Chloride Carbon Dioxide BUN Creatinine Glucose POC Glucose 140 H 136 H Lactic Acid Lactate Dehydrogenase Troponin T C-Reactive Protein NT-Pro-B Natriuret Pep Arterial Blood Glucose 140 H Arterial Blood Ionized Calcium 4.3 L Urine Creatinine Urine Total Protein 04/24/21 04/24/21 07:03 07:03 WBC 12.4 H RBC 3.60 L Hgb 11.7 L Hct 34.7 L MCV 96 H MCH 33 H Lymph % (Auto) Lymph # (Auto) [place] # (Auto) Seg Neutrophils % Seg Neutrophils # INR D-Dimer ABG pH POC ABG pCO2 POC ABG pO2 ABG Sodium ABG Potassium ABG Glucose Carboxyhemoglobin Potassium 3.5 L Chloride Carbon Dioxide BUN 28 H Creatinine 2.2 H Glucose 133 H POC Glucose Lactic Acid Lactate Dehydrogenase Troponin T C-Reactive Protein NT-Pro-B Natriuret Pep Arterial Blood Glucose Arterial Blood Ionized Calcium Urine Creatinine Urine Total Protein Chest x-ray: image reviewed (cardiomegaly; mid-liner sternotomy wires) Allied health notes reviewed: nursing
--- NOTE | 2021-04-24 12:20 | Progress Note ---
<CHARLESKATHRINENola - Last Filed: 04/24/21 13:45> Assessment and Plan Assessment and plan: This is a 65-year-old male with CAD s/p CABG x3, ischemic cardiomyopathy with ejection fraction of 40 to 45%, hypertension, hyperlipidemia, CVA and diabetes who was admitted s/p cardiac arrest, leukocytosis, lactic acidosis, elevated troponin, hypochloremia, metabolic acidosis, acute hypoxic respiratory failure S/p cardiac arrest (NSTEMI) Acute hypoxic respiratory failure Acute kidney injury secondary to vasomotor nephropathy Hyperkalemia ? Brain injury ? Myoclonic jerks/Seizures Lactic acidosis (down trending) Elevated D-dimer CAD s/p CABG x3 Ischemic cardiomyopathy with EF of 40 to 45% Hypertension Hyperlipidemia CVA Diabetes -CCM, neurology, nephrology, cardiology consulted, appreciate recommendations -COVID-19 PCR negative -IV Keppra -IV antibiotic -Precedex/fentanyl -04/23 renal ultrasound shows no evidence of medical renal disease or hydronephrosis -04/22 echocardiogram shows moderately dilated left ventricle, left ventricular function severely decreased with LVEF of 20 to 25%, borderline concentric left ventricle hypertrophy, mildly dilated left atrium, mild MR, mild AR, mild TR, mild pulmonary hypertension, RVSP is 46 mmHg -04/23 renal calculated at 1.5 suggestive of ATN or prerenal state -MRI brain pending -MRA/MRV pending -EEG pending -Aspirin, Lipitor -Heparin drip -Continue home amlodipine, aspirin, Lipitor, Coreg, Plavix, hydralazine, Imdur -S/p 2L NS bolus in ED -IV hydration -Hold home torsemide, lisinopril -Tube feeding -Trend CBC, BMP DVT/GI prophylaxis: SCDs to bilateral lower extremities while in bed, systemic anticoagulation with heparin drip, PPI Disposition: ICU The high probability of a clinically significant, sudden or life threatening deterioration of the [multi] system(s) required my full and direct attention, intervention and personal management. The aggregate critical care time was [35] minutes. This time is in addition to time spent performing reported procedures b ut includes the following: [x] Data Review and interpretation [x] Patient assessment and monitoring of vital signs [x] Documentation [x] Medication orders and management History Interval history: This is a 65-year-old male with CAD s/p stents and CABG, DM, CVA, diastolic heart failure, HTN, hypercholesterolemia presented to the emergency department on 04/22 s/p cardiac arrest. Upon arrival of fire department patient was placed in the ED and shocked x2. Upon arrival of EMS patient was found to be in asystole and was given epinephrine x3, Narcan, sodium bicarb x1 and ROSC was achieved. Upon arrival to the emergency department patient again went to cardiac arrest and received 1 round of ACLS with epi nephron x1 and bicarb x1. Work-up in the emergency department revealed leukocytosis, lactic acidosis, elevated troponin, hypochloremia, metabolic acidosis. Patient was admitted to the hospital service with consults to nephrology, cardiology, neurology and [facility]. 04/23: We will hold MOLLY inhibitor and diuretics in setting of DELMI. EEG, MRI, MR V, renal ultrasound, echocardiogram pending Patient sedated with propofol. At the time my examination patient is on assist control tidal volume 450, rate of 26, PEEP of 6 and FiO2 of 30%. Nephrology was consulted given acute kidney injury and neurology. 04/24: Patient's leukocytosis has improved, he has slight hyperkalemia today but his kidney function has worsened to BUN 28/creatinine 2.2 from 14/12.6. Lactic acidosis has improved. Patient had his EEG today and is scheduled for MRI brain and MRA/MRV. This time my examination patient is on assist control tidal volume 450, rate 26, PEEP of 6 and 30% FiO2. Patient is Felicita calculated at 1.5 suggestive of ATN or PNA renal state. Renal ultrasound negative. He has hypokalemia today which will be repleted. Hospitalist Physical - Constitutional Vitals: Temp Pulse Resp BP Pulse Ox 98 F 86 26 H 141/66 100 04/24/21 08:00 04/24/21 11:12 04/24/21 10:10 04/24/21 11:12 04/24/21 11:12 General appearance: Present: other (Intubated and sedated) - EENT Eyes: Present: PERRL - Neck Neck: Present: normal ROM - Respiratory Respiratory effort: normal Respiratory: bilateral: CTA - Cardiovascular Rhythm: regular Heart Sounds: Present: S1 & S2. Absent: systolic murmur, diastolic murmur - Extremities Extremities: no ischemia, pulses intact, pulses symmetrical, No edema, normal temperature, normal color Peripheral Pulses: within normal limits - Abdominal General gastrointestinal: soft, non-tender, non-distended, normal bowel sounds - Integumentary Integumentary: Present: warm, dry - Psychiatric Psychiatric: other (sedated) - Neurologic Neurologic: other (intact cough/gag, PERRL, no movement to painful stimuli) - Allied Health Allied health notes reviewed: nursing, RT HEART Score - HEART Score Troponin: Troponin T 1.020 ng/mL (0.00-0.029) H* D 04/23/21 02:36 Results - Labs CBC & Chem 7: 04/24/21 07:03 04/24/21 07:03 Labs: Laboratory Last Values WBC 12.4 K/mm3 (4.5-11.0) H 04/24/21 07:03 RBC 3.60 M/mm3 (3.65-5.03) L 04/24/21 07:03 Hgb 11.7 gm/dl (11.8-15.2) L 04/24/21 07:03 Hct 34.7 % (35.5-45.6) L 04/24/21 07:03 MCV 96 fl (84-94) H 04/24/21 07:03 MCH 33 pg (28-32) H 04/24/21 07:03 MCHC 34 % (32-34) 04/24/21 07:03 RDW 14.4 % (13.2-15.2) 04/24/21 07:03 Plt Count 142 K/mm3 (140-440) 04/24/21 07:03 Lymph % (Auto) 3.6 % (13.4-35.0) L 04/23/21 02:36 [place] % (Auto) 6.7 % (0.0-7.3) 04/23/21 02:36 Eos % (Auto) 0.0 % (0.0-4.3) 04/23/21 02:36 Baso % (Auto) 0.3 % (0.0-1.8) 04/23/21 02:36 Lymph # (Auto) 0.5 K/mm3 (1.2-5.4) L 04/23/21 02:36 [place] # (Auto) 1.0 K/mm3 (0.0-0.8) H 04/23/21 02:36 Eos # (Auto) 0.0 K/mm3 (0.0-0.4) 04/23/21 02:36 Baso # (Auto) 0.0 K/mm3 (0.0-0.1) 04/23/21 02:36 Seg Neutrophils % 89.4 % (40.0-70.0) H 04/23/21 02:36 Seg Neutrophils # 13.0 K/mm3 (1.8-7.7) H 04/23/21 02:36 PT 14.9 Sec. (12.2-14.9) 04/22/21 18:12 INR 1.17 (0.87-1.13) H 04/22/21 18:12 APTT 36.5 Sec. (24.2-36.6) 04/22/21 18:12 D-Dimer 8003.00 ng/mlDDU (0-234) H 04/23/21 08:58 Heparin Anti-Xa Level 0.46 U.I./ml (0.3-0.7) 04/24/21 07:40 ABG pH 7.485 (7.320-7.450) H 04/24/21 04:01 POC ABG pCO2 34.6 mmHg (32.0-48.0) 04/24/21 04:01 POC ABG pO2 95.1 mmHg (83-108) 04/24/21 04:01 POC ABG HCO3 25.5 04/24/21 04:01 ABG O2 Saturation 97.6 (0-100) 04/24/21 04:01 POC ABG Base Excess 2.3 04/24/21 04:01 ABG Hemoglobin 12.3 (12.0-17.5) 04/24/21 04:01 ABG Oxyhemoglobin 96.3 (94-98) 04/24/21 04:01 ABG Methemoglobin 0.3 (0.0-1.5) 04/24/21 04:01 ABG Sodium 135.8 mmol/L (136.0-145.0) L 04/24/21 04:01 ABG Potassium 3.6 mmol/L (3.40-4.50) 04/24/21 04:01 ABG Chloride 102.0 mmol/L (98-107) 04/24/21 04:01 ABG Glucose 140 mg/dL (65-95) H 04/24/21 04:01 Carboxyhemoglobin 1.0 (0.5-1.5) 04/24/21 04:01 FiO2 % 30.0 04/24/21 04:01 Sodium 139 mmol/L (137-145) 04/24/21 07:03 Potassium 3.5 mmol/L (3.6-5.0) L 04/24/21 07:03 Chloride 100.9 mmol/L (98-107) 04/24/21 07:03 Carbon Dioxide 27 mmol/L (22-30) 04/24/21 07:03 Anion Gap 15 mmol/L 04/24/21 07:03 BUN 28 mg/dL (9-20) H 04/24/21 07:03 Creatinine 2.2 mg/dL (0.8-1.3) H 04/24/21 07:03 Estimated GFR 37 ml/min 04/24/21 07:03 BUN/Creatinine Ratio 13 % 04/24/21 07:03 Glucose 133 mg/dL (75-100) H 04/24/21 07:03 POC Glucose 136 mg/dL (70-105) H 04/24/21 05:02 Lactic Acid 1.40 mmol/L (0.7-2.0) 04/24/21 07:03 Calcium 8.4 mg/dL (8.4-10.2) 04/24/21 07:03 Ferritin 185.5 ng/mL (30.0-300.0) 04/23/21 08:58 Lactate Dehydrogenase 546 units/L (91-180) H 04/23/21 08:58 Troponin T 1.020 ng/mL (0.00-0.029) H* D 04/23/21 02:36 C-Reactive Protein 2.20 mg/dL (0.00-1.30) H 04/23/21 08:58 NT-Pro-B Natriuret Pep 2448 pg/mL (0-900) H 04/22/21 18:12 Triglycerides 107 mg/dL (2-149) 04/22/21 18:12 Cholesterol 136 mg/dL (50-199) 04/22/21 18:12 LDL Cholesterol Direct 78 mg/dL (50-130) 04/22/21 18:12 HDL Cholesterol 58 mg/dL (40-59) 04/22/21 18:12 Cholesterol/HDL Ratio 2.34 % 04/22/21 18:12 Procalcitonin 3.46 ng/mL (<0.15) 04/23/21 08:58 Arterial Blood Glucose 140 mg/dL (65-95) H 04/24/21 04:01 Arterial Blood Ionized Calcium 4.3 mg/dL (4.6-5.3) L 04/24/21 04:01 Urine Creatinine 90.4 mg/dL (0.1-20.0) H 04/23/21 13:46 Urine Sodium 123 mmol/L 04/23/21 13:46 Urine Total Protein 103 mg/dL (5-11.8) H 04/23/21 13:46 Coronavirus (PCR) Negative (Negative) 04/23/21 Unknown Microbiology: Microbiology 04/22/21 18:25 Peripheral/Venous Blood Culture - Preliminary NO GROWTH AFTER 24 HOURS 04/22/21 18:12 Peripheral/Venous Blood Culture - Preliminary NO GROWTH AFTER 24 HOURS Cruz/IV: Voiding Method Indwelling Catheter Active Medications - Current Medications Current Medications: Generic Name Dose Route Start Last Admin Trade Name Freq PRN Reason Stop Dose Admin Acetaminophen 650 mg 04/22/21 21:26 Acetaminophen 325 Mg Tab PO Q4H PRN Pain MILD(1-3)/Fever >100.5/GIORDANO Albuterol 2.5 mg 04/22/21 21:26 Albuterol 2.5 Mg/3 Ml Nebu IH Q3HRT PRN Shortness Of Breath Albuterol/Ipratropium 1 ampul 04/23/21 02:00 04/24/21 09:21 Ipratropium/Albuterol Sulfate 3 Ml Ampul.Neb IH 1 ampul Q6HRT SHELTON Administration Amlodipine Besylate 10 mg 04/23/21 10:00 04/24/21 09:24 Amlodipine 10 Mg Tab PO 10 mg QDAY SHELTON Administration Lipase/Protease/Amylase 1 each 04/23/21 09:33 Lipase 10,500/Protease 25,000/Amylase 43,750 (Units) Dr Machado FEEDTUBE PRN PRN For Clogged Feeding Tube Aspirin 325 mg 04/24/21 10:00 04/24/21 09:24 Aspirin 325 Mg Tab PO 325 mg QDAY SHELTON Administration Atorvastatin Calcium 80 mg 04/22/21 22:00 04/23/21 21:27 Atorvastatin 40 Mg Tab PO 80 mg QHS SHELTON Administration Carvedilol 25 mg 04/23/21 08:00 04/24/21 08:31 Carvedilol 25 Mg Tab PO 25 mg DAILY@0800 SHELTON Administration Clopidogrel Bisulfate 75 mg 04/23/21 10:00 04/24/21 09:24 Clopidogrel 75 Mg Tab PO 75 mg QDAY SHELTON Administration Dextrose 0 ml 04/22/21 21:26 Dextrose 50% In Water (25gm) 50 Ml Syringe IV Q30MIN PRN Hypoglycemia Protocol Famotidine 20 mg 04/24/21 10:00 04/24/21 09:24 Famotidine 20 Mg/2 Ml Inj IV 20 mg DAILY SHELTON Administration Heparin Sodium (Porcine) 4,000 unit 04/22/21 21:39 Heparin 10,000 Units/10 Ml Vial 40 unit/kg (4000 unit) IV Q6H PRN Anti-Xa Assay < 0.1 units/ml Hydralazine HCl 10 mg 04/22/21 21:35 04/23/21 11:37 Hydralazine 20 Mg/1 Ml Inj IV 10 mg Q6H PRN Administration htn Hydralazine HCl 50 mg 04/24/21 09:00 04/24/21 08:31 Hydralazine 25 Mg Tab PO 50 mg Q8HR SHELTON Administration Propofol 1,000 mg in 100 mls @ 3 mls/hr 04/22/21 19:00 04/24/21 07:58 Diprivan 10 Mg/Ml IV 0 mcg/kg/min TITR SHELTON 0 mls/hr Titration Protocol 5 MCG/KG/MIN Ceftriaxone Sodium 2 gm in 100 mls @ 200 mls/hr 04/23/21 10:00 04/24/21 09:25 Rocephin/Ns 2 Gm/100 Ml IV 04/27/21 10:29 200 mls/hr Q24HR SHELTON Administration Protocol Heparin Sodium/Sodium Chloride 25,000 unit in 500 mls @ 20 mls/hr 04/22/21 22:00 04/24/21 09:16 Heparin/ 0.45% Nacl-25,000 Unit/500 Ml IV 1,000 units/hr TITRATE SHELTON 20 mls/hr Titration Protocol 1,000 UNITS/HR Sodium Chloride 1,000 mls @ 75 mls/hr 04/22/21 22:00 04/24/21 00:39 Nacl 0.9% 1000 Ml IV 75 mls/hr DIRECT SHELTON Administration Levetiracetam 750 mg/ Dextrose 107.5 mls @ 400 mls/hr 04/23/21 11:30 04/24/21 09:23 IV 400 mls/hr Q12HR SHELTON Administration Insulin Human Lispro 0 unit 04/23/21 00:00 04/24/21 06:30 Insulin Lispro 100 Unit/Ml SUB-Q Not Given Q6HR SHELTON Protocol Isosorbide Mononitrate 40 mg 04/24/21 09:00 04/24/21 09:23 Isosorbide Mononitrate 20 Mg Tab PO 40 mg Q8HR SHELTON Administration Lorazepam 2 mg 04/22/21 22:52 04/23/21 03:22 Lorazepam 2 Mg/Ml Vial IV 2 mg Q4H PRN Administration Seizures Nitroglycerin 0.4 mg 04/22/21 21:26 Nitroglycerin 0.4 Mg Tab Subl SL .Q5MIN PRN Chest Pain Ondansetron HCl 4 mg 04/22/21 21:26 Ondansetron 4 Mg/2 Ml Inj IV Q8H PRN Nausea And Vomiting Ranolazine 1,000 mg 04/24/21 10:00 04/24/21 09:17 Ranolazine Er 500 Mg Tab 12hr PO Not Given BID SHELTON Simple Syrup 15 ml 04/23/21 09:33 Simple Syrup 15 Ml FEEDTUBE PRN PRN Hypoglycemia Simple Syrup 30 ml 04/23/21 09:33 Simple Syrup 15 Ml FEEDTUBE PRN PRN Hypoglycemia Sodium Bicarbonate 325 mg 04/23/21 09:33 Sodium Bicarbonate 325 Mg Tab FEEDTUBE PRN PRN For Clogged Feeding Tube Sodium Chloride 10 ml 04/22/21 22:00 04/24/21 09:25 Sodium Chloride 0.9% 10 Ml Flush Syringe IV 10 ml BID SHELTON Administration Sodium Chloride 10 ml 04/22/21 21:26 Sodium Chloride 0.9% 10 Ml Flush Syringe IV PRN PRN LINE FLUSH Nutrition/Malnutrition Assess - Dietary Evaluation Nutrition/Malnutrition Findings: Nutrition Notes Start: 04/23/21 08:22 Freq: Status: Active Protocol: Document 04/23/21 08:22 LP (Rec: 05/31/21 08:27 LP [id number]) Nutrition Notes Need for Assessment generated from: MD Order Initial or Follow up Assessment Current Diagnosis Diabetes,Hypertension,Heart Failure,Stroke Other Pertinent Diagnosis Cardiac arrest, AMI Current Diet NPO Labs/Tests BUN 21 Cr 1.6 BG 145 Pertinent Medications Propofol at 21ml/hr (554kcal) Height 6 ft Weight 96 kg [place] Body Weight (kg) 80.90 BMI 28.7 Weight Status Overweight Subjective/Other Information Consult for TF. Consult for diet education. Pt on vent and not appropriate for diet education at this time. Burn Absent Trauma Absent GI Symptoms None Current % PO Negligible Minimum of two criteria No physical signs of malnutrition #1 Nutrition Diagnosis Inadequate oral intake Etiology ARF As Evidenced by Signs and Symptoms Pt unable to consume PO due to vent Is patient on ventilator? Yes Is Patient Ambulatory and/or Out of Bed No REE-([facility]-confined to bed) 1007.965 Calculation Used for Recommendations [facility] Additional Notes Protein needs are 115-192g (1. 2-2g/kg) Fluid needs are 1ml/kcal Nutrition Intervention Change Diet Order: TF Nutrition Support: Vital 1.2 at 65ml/h Flush with 100ml q4h Kcal 1,872 Protein (gm) 117 Fluid (mL) 1,260 Goal #1 Meet at least 80% of kcal and protein needs Anticipated Discharge Needs: Unable to determine at this time Follow-Up By: 04/25/21 Additional Comments Follow for TF start/tolerance <KENJI TA - Last Filed: 04/25/21 07:02> Assessment and Plan Assessment and plan: I saw and evaluated the patient. I agree with the findings and the plan of care as documented in the Nurse Practitioner's~note, with the following corrections and additions. Hospitalist Physical - Constitutional Vitals: Temp Pulse Resp BP Pulse Ox 96.6 F L 64 16 115/55 100 04/25/21 04:00 04/25/21 06:33 04/25/21 06:30 04/25/21 06:33 04/25/21 06:30 HEART Score - HEART Score Troponin: Troponin T 1.020 ng/mL (0.00-0.029) H* D 04/23/21 02:36 Results - Labs CBC & Chem 7: 04/24/21 07:03 04/24/21 07:03 Labs: Laboratory Last Values WBC 12.4 K/mm3 (4.5-11.0) H 04/24/21 07:03 RBC 3.60 M/mm3 (3.65-5.03) L 04/24/21 07:03 Hgb 11.7 gm/dl (11.8-15.2) L 04/24/21 07:03 Hct 34.7 % (35.5-45.6) L 04/24/21 07:03 MCV 96 fl (84-94) H 04/24/21 07:03 MCH 33 pg (28-32) H 04/24/21 07:03 MCHC 34 % (32-34) 04/24/21 07:03 RDW 14.4 % (13.2-15.2) 04/24/21 07:03 Plt Count 142 K/mm3 (140-440) 04/24/21 07:03 Lymph % (Auto) 3.6 % (13.4-35.0) L 04/23/21 02:36 [place] % (Auto) 6.7 % (0.0-7.3) 04/23/21 02:36 Eos % (Auto) 0.0 % (0.0-4.3) 04/23/21 02:36 Baso % (Auto) 0.3 % (0.0-1.8) 04/23/21 02:36 Lymph # (Auto) 0.5 K/mm3 (1.2-5.4) L 04/23/21 02:36 [place] # (Auto) 1.0 K/mm3 (0.0-0.8) H 04/23/21 02:36 Eos # (Auto) 0.0 K/mm3 (0.0-0.4) 04/23/21 02:36 Baso # (Auto) 0.0 K/mm3 (0.0-0.1) 04/23/21 02:36 Seg Neutrophils % 89.4 % (40.0-70.0) H 04/23/21 02:36 Seg Neutrophils # 13.0 K/mm3 (1.8-7.7) H 04/23/21 02:36 PT 14.9 Sec. (12.2-14.9) 04/22/21 18:12 INR 1.17 (0.87-1.13) H 04/22/21 18:12 APTT 36.5 Sec. (24.2-36.6) 04/22/21 18:12 D-Dimer 8003.00 ng/mlDDU (0-234) H 04/23/21 08:58 Heparin Anti-Xa Level 0.46 U.I./ml (0.3-0.7) 04/24/21 07:40 ABG pH 7.462 (7.320-7.450) H 04/25/21 03:05 POC ABG pCO2 40.5 mmHg (32.0-48.0) 04/25/21 03:05 POC ABG pO2 80.2 mmHg (83-108) L 04/25/21 03:05 POC ABG HCO3 28.3 04/25/21 03:05 ABG O2 Saturation 95.9 (0-100) 04/25/21 03:05 POC ABG Base Excess 4.2 04/25/21 03:05 ABG Hemoglobin 11.0 (12.0-17.5) L 04/25/21 03:05 ABG Oxyhemoglobin 94.9 (94-98) 04/25/21 03:05 ABG Methemoglobin 0.3 (0.0-1.5) 04/25/21 03:05 ABG Sodium 136.3 mmol/L (136.0-145.0) 04/25/21 03:05 ABG Potassium 3.3 mmol/L (3.40-4.50) L 04/25/21 03:05 ABG Chloride 104.0 mmol/L (98-107) 04/25/21 03:05 ABG Glucose 137 mg/dL (65-95) H 04/25/21 03:05 Carboxyhemoglobin 0.7 (0.5-1.5) 04/25/21 03:05 FiO2 % 30.0 04/25/21 03:05 Sodium 139 mmol/L (137-145) 04/24/21 07:03 Potassium 3.5 mmol/L (3.6-5.0) L 04/24/21 07:03 Chloride 100.9 mmol/L (98-107) 04/24/21 07:03 Carbon Dioxide 27 mmol/L (22-30) 04/24/21 07:03 Anion Gap 15 mmol/L 04/24/21 07:03 BUN 28 mg/dL (9-20) H 04/24/21 07:03 Creatinine 2.2 mg/dL (0.8-1.3) H 04/24/21 07:03 Estimated GFR 37 ml/min 04/24/21 07:03 BUN/Creatinine Ratio 13 % 04/24/21 07:03 Glucose 133 mg/dL (75-100) H 04/24/21 07:03 POC Glucose 152 mg/dL (70-105) H 04/25/21 05:31 Lactic Acid 1.40 mmol/L (0.7-2.0) 04/24/21 07:03 Calcium 8.4 mg/dL (8.4-10.2) 04/24/21 07:03 Ferritin 185.5 ng/mL (30.0-300.0) 04/23/21 08:58 Lactate Dehydrogenase 546 units/L (91-180) H 04/23/21 08:58 Troponin T 1.020 ng/mL (0.00-0.029) H* D 04/23/21 02:36 C-Reactive Protein 2.20 mg/dL (0.00-1.30) H 04/23/21 08:58 NT-Pro-B Natriuret Pep 2448 pg/mL (0-900) H 04/22/21 18:12 Triglycerides 107 mg/dL (2-149) 04/22/21 18:12 Cholesterol 136 mg/dL (50-199) 04/22/21 18:12 LDL Cholesterol Direct 78 mg/dL (50-130) 04/22/21 18:12 HDL Cholesterol 58 mg/dL (40-59) 04/22/21 18:12 Cholesterol/HDL Ratio 2.34 % 04/22/21 18:12 Procalcitonin 3.46 ng/mL (<0.15) 04/23/21 08:58 Arterial Blood Glucose 137 mg/dL (65-95) H 04/25/21 03:05 Arterial Blood Ionized Calcium 4.5 mg/dL (4.6-5.3) L 04/25/21 03:05 Urine Creatinine 90.4 mg/dL (0.1-20.0) H 04/23/21 13:46 Urine Sodium 123 mmol/L 04/23/21 13:46 Urine Total Protein 103 mg/dL (5-11.8) H 04/23/21 13:46 Coronavirus (PCR) Negative (Negative) 04/23/21 Unknown Microbiology: Microbiology 04/22/21 18:25 Peripheral/Venous Blood Culture - Preliminary NO GROWTH AFTER 48 HOURS 04/22/21 18:12 Peripheral/Venous Blood Culture - Preliminary NO GROWTH AFTER 48 HOURS Cruz/IV: Voiding Method Indwelling Catheter Active Medications - Current Medications Current Medications: Generic Name Dose Route Start Last Admin Trade Name Freq PRN Reason Stop Dose Admin Acetaminophen 650 mg 04/22/21 21:26 Acetaminophen 325 Mg Tab PO Q4H PRN Pain MILD(1-3)/Fever >100.5/GIORDANO Albuterol 2.5 mg 04/22/21 21:26 Albuterol 2.5 Mg/3 Ml Nebu IH Q3HRT PRN Shortness Of Breath Albuterol/Ipratropium 1 ampul 04/23/21 02:00 04/25/21 03:03 Ipratropium/Albuterol Sulfate 3 Ml Ampul.Neb IH 1 ampul Q6HRT SHELTON Administration Amlodipine Besylate 10 mg 04/23/21 10:00 04/24/21 09:24 Amlodipine 10 Mg Tab PO 10 mg QDAY SHELTON Administration Lipase/Protease/Amylase 1 each 04/23/21 09:33 Lipase 10,500/Protease 25,000/Amylase 43,750 (Units) Dr Carter LARSENTUBE PRN PRN For Clogged Feeding Tube Aspirin 325 mg 04/24/21 10:00 04/24/21 09:24 Aspirin 325 Mg Tab PO 325 mg QDAY SHELTON Administration Atorvastatin Calcium 80 mg 04/22/21 22:00 04/24/21 21:50 Atorvastatin 40 Mg Tab PO 80 mg QHS SHELTON Administration Carvedilol 25 mg 04/23/21 08:00 04/24/21 08:31 Carvedilol 25 Mg Tab PO 25 mg DAILY@0800 SHELTON Administration Clopidogrel Bisulfate 75 mg 04/23/21 10:00 04/24/21 09:24 Clopidogrel 75 Mg Tab PO 75 mg QDAY SHELTON Administration Dextrose 0 ml 04/22/21 21:26 Dextrose 50% In Water (25gm) 50 Ml Syringe IV Q30MIN PRN Hypoglycemia Protocol Famotidine 20 mg 04/24/21 10:00 04/24/21 09:24 Famotidine 20 Mg/2 Ml Inj IV 20 mg DAILY SHELTNO Administration Heparin Sodium (Porcine) 4,000 unit 04/22/21 21:39 Heparin 10,000 Units/10 Ml Vial 40 unit/kg (4000 unit) IV Q6H PRN Anti-Xa Assay < 0.1 units/ml Hydralazine HCl 10 mg 04/22/21 21:35 04/23/21 11:37 Hydralazine 20 Mg/1 Ml Inj IV 10 mg Q6H PRN Administration htn Hydralazine HCl 50 mg 04/24/21 09:00 04/25/21 06:33 Hydralazine 25 Mg Tab PO Not Given Q8HR SHELTON Propofol 1,000 mg in 100 mls @ 3 mls/hr 04/22/21 19:00 04/24/21 19:06 Diprivan 10 Mg/Ml IV 0 mcg/kg/min TITR SHELTON 0 mls/hr Titration Protocol 5 MCG/KG/MIN Ceftriaxone Sodium 2 gm in 100 mls @ 200 mls/hr 04/23/21 10:00 04/24/21 10:17 Rocephin/Ns 2 Gm/100 Ml IV 04/25/21 10:29 Infused Q24HR SHELTON Infusion Protocol Heparin Sodium/Sodium Chloride 25,000 unit in 500 mls @ 20 mls/hr 04/22/21 22:00 04/24/21 09:16 Heparin/ 0.45% Nacl-25,000 Unit/500 Ml IV 1,000 units/hr TITRATE SHELTON 20 mls/hr Titration Protocol 1,000 UNITS/HR Levetiracetam 750 mg/ Dextrose 107.5 mls @ 400 mls/hr 04/23/21 11:30 04/24/21 22:10 IV Infused Q12HR SHELTON Infusion Insulin Human Lispro 0 unit 04/23/21 00:00 04/25/21 06:08 Insulin Lispro 100 Unit/Ml SUB-Q 2 unit Q6HR SHELTON Administration Protocol Isosorbide Mononitrate 40 mg 04/24/21 09:00 04/25/21 06:36 Isosorbide Mononitrate 20 Mg Tab PO Not Given Q8HR SHELTON Lorazepam 2 mg 04/22/21 22:52 04/23/21 03:22 Lorazepam 2 Mg/Ml Vial IV 2 mg Q4H PRN Administration Seizures Nitroglycerin 0.4 mg 04/22/21 21:26 Nitroglycerin 0.4 Mg Tab Subl SL .Q5MIN PRN Chest Pain Ondansetron HCl 4 mg 04/22/21 21:26 Ondansetron 4 Mg/2 Ml Inj IV Q8H PRN Nausea And Vomiting Ranolazine 1,000 mg 04/24/21 10:00 04/24/21 21:49 Ranolazine Er 500 Mg Tab 12hr PO 1,000 mg BID SHELTON Administration Simple Syrup 15 ml 04/23/21 09:33 Simple Syrup 15 Ml FEEDTUBE PRN PRN Hypoglycemia Simple Syrup 30 ml 04/23/21 09:33 Simple Syrup 15 Ml FEEDTUBE PRN PRN Hypoglycemia Sodium Bicarbonate 325 mg 04/23/21 09:33 Sodium Bicarbonate 325 Mg Tab FEEDTUBE PRN PRN For Clogged Feeding Tube Sodium Chloride 10 ml 04/22/21 22:00 04/24/21 21:51 Sodium Chloride 0.9% 10 Ml Flush Syringe IV 10 ml BID [place] Administration Sodium Chloride 10 ml 04/22/21 21:26 Sodium Chloride 0.9% 10 Ml Flush Syringe IV PRN PRN LINE FLUSH Nutrition/Malnutrition Assess - Dietary Evaluation Nutrition/Malnutrition Findings: Nutrition Notes Start: 04/23/21 08:22 Freq: Status: Active Protocol: Document 04/23/21 08:22 LP (Rec: 04/23/21 08:27 LP [id number]) Nutrition Notes Need for Assessment generated from: MD Order Initial or Follow up Assessment Current Diagnosis Diabetes,Hypertension,Heart Failure,Stroke Other Pertinent Diagnosis Cardiac arrest, AMI Current Diet NPO Labs/Tests BUN 21 Cr 1.6 BG 145 Pertinent Medications Propofol at 21ml/hr (554kcal) Height 6 ft Weight 96 kg [place] Body Weight (kg) 80.90 BMI 28.7 Weight Status Overweight Subjective/Other Information Consult for TF. Consult for diet education. Pt on vent and not appropriate for diet education at this time. Burn Absent Trauma Absent GI Symptoms None Current % PO Negligible Minimum of two criteria No physical signs of malnutrition #1 Nutrition Diagnosis Inadequate oral intake Etiology ARF As Evidenced by Signs and Symptoms Pt unable to consume PO due to vent Is patient on ventilator? Yes Is Patient Ambulatory and/or Out of Bed No REE-([facility]-confined to bed) [phone] Calculation Used for Recommendations [facility] Additional Notes Protein needs are 115-192g (1. 2-2g/kg) Fluid needs are 1ml/kcal Nutrition Intervention Change Diet Order: TF Nutrition Support: Vital 1.2 at 65ml/h Flush with 100ml q4h Kcal 1,872 Protein (gm) 117 Fluid (mL) 1,260 Goal #1 Meet at least 80% of kcal and protein needs Anticipated Discharge Needs: Unable to determine at this time Follow-Up By: 04/25/21 Additional Comments Follow for TF start/tolerance
[2021-04-24] MEDS ORDERED: POTASSIUM CHLORIDE 20 MEQ PACKET FEEDTUBE ONE (14:00)
--- NOTE | 2021-04-24 15:20 | Progress Note ---
Assessment and Plan - Patient Problems (1) Acute kidney injury (DELMI) with acute tubular necrosis (ATN) Current Visit: Yes Status: Acute Plan to address problem: Acute kidney injury acute tubular necrosis secondary to hypotension status post cardiac arrest, kidney indices are worsening, however pt remains non-oliguric. Renal US showed no evidence of hydro/medical renal disease. cont supportive care for ATN avoid further nephrotoxins, NSAIDs IV contrast. maintain MAP > 65mmhg (2) Acute respiratory failure Current Visit: Yes Status: Acute Plan to address problem: Continue ventilator management per pulmonary. (3) Hypertensive emergency Current Visit: Yes Status: Acute Plan to address problem: Oral antihypertensive medications been resumed. 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 Sedation being weaned per neurology with close monitoring Subjective Date of service: 04/24/21 Principal diagnosis: Cardiac; DELMI; Ac hypoxemic resp failure; Ac Encephalopathy; HFrEF; DM II Interval history: Pt remains intubated, sedated. off vasopressor support Objective - Vital Signs Vital signs: Vital Signs - 12hr 04/24/21 04/24/21 04/24/21 03:22 03:30 03:40 Temperature 99.4 F Pulse Rate 91 H 92 H Pulse Rate [ Bilateral Throughout] Pulse Rate [ From Monitor] Respiratory 26 H 26 H Rate Respiratory Rate [Bilateral Throughout] Blood Pressure 165/85 165/85 O2 Sat by Pulse 100 100 Oximetry 04/24/21 04/24/21 04/24/21 03:50 04:00 04:10 Temperature Pulse Rate 92 H 92 H 96 H Pulse Rate [ Bilateral Throughout] Pulse Rate [ 93 H From Monitor] Respiratory 26 H 26 H 26 H Rate Respiratory Rate [Bilateral Throughout] Blood Pressure 160/86 159/84 159/84 O2 Sat by Pulse 100 100 100 Oximetry 04/24/21 04/24/21 04/24/21 04:20 04:30 04:40 Temperature Pulse Rate 94 H 94 H 94 H Pulse Rate [ Bilateral Throughout] Pulse Rate [ From Monitor] Respiratory 25 H 26 H 26 H Rate Respiratory Rate [Bilateral Throughout] Blood Pressure 160/81 156/81 159/81 O2 Sat by Pulse 100 100 100 Oximetry 04/24/21 04/24/21 04/24/21 04:50 05:00 05:10 Temperature Pulse Rate 94 H 94 H 93 H Pulse Rate [ Bilateral Throughout] Pulse Rate [ From Monitor] Respiratory 26 H 26 H 26 H Rate Respiratory Rate [Bilateral Throughout] Blood Pressure 156/81 161/81 161/81 O2 Sat by Pulse 100 99 99 Oximetry 04/24/21 04/24/21 04/24/21 05:20 05:30 05:40 Temperature Pulse Rate 94 H 94 H 93 H Pulse Rate [ Bilateral Throughout] Pulse Rate [ From Monitor] Respiratory 26 H 26 H 26 H Rate Respiratory Rate [Bilateral Throughout] Blood Pressure 164/78 158/79 158/79 O2 Sat by Pulse 100 100 99 Oximetry 04/24/21 04/24/21 04/24/21 05:50 06:00 06:10 Temperature Pulse Rate 93 H 93 H 93 H Pulse Rate [ Bilateral Throughout] Pulse Rate [ From Monitor] Respiratory 26 H 26 H 26 H Rate Respiratory Rate [Bilateral Throughout] Blood Pressure 161/80 161/75 161/75 O2 Sat by Pulse 100 100 100 Oximetry 04/24/21 04/24/21 04/24/21 06:20 06:30 06:40 Temperature Pulse Rate 94 H 93 H 93 H Pulse Rate [ Bilateral Throughout] Pulse Rate [ From Monitor] Respiratory 26 H 26 H 26 H Rate Respiratory Rate [Bilateral Throughout] Blood Pressure 163/76 161/79 161/79 O2 Sat by Pulse 100 100 100 Oximetry 04/24/21 04/24/21 04/24/21 06:50 07:00 07:10 Temperature Pulse Rate 93 H 93 H 94 H Pulse Rate [ Bilateral Throughout] Pulse Rate [ From Monitor] Respiratory 26 H 26 H 26 H Rate Respiratory Rate [Bilateral Throughout] Blood Pressure 163/76 163/80 163/80 O2 Sat by Pulse 100 100 100 Oximetry 04/24/21 04/24/21 04/24/21 07:20 07:30 07:40 Temperature Pulse Rate 93 H 93 H 93 H Pulse Rate [ Bilateral Throughout] Pulse Rate [ From Monitor] Respiratory 26 H 26 H 23 Rate Respiratory Rate [Bilateral Throughout] Blood Pressure 165/80 166/80 166/80 O2 Sat by Pulse 100 96 100 Oximetry 04/24/21 04/24/21 04/24/21 07:55 08:00 08:10 Temperature 98 F Pulse Rate 93 H 93 H 94 H Pulse Rate [ Bilateral Throughout] Pulse Rate [ 92 H From Monitor] Respiratory 26 H 26 H 26 H Rate Respiratory Rate [Bilateral Throughout] Blood Pressure 166/82 160/77 O2 Sat by Pulse 100 100 100 Oximetry 04/24/21 04/24/21 04/24/21 08:20 08:30 08:31 Temperature Pulse Rate 95 H 95 H 96 H Pulse Rate [ Bilateral Throughout] Pulse Rate [ From Monitor] Respiratory 26 H 26 H Rate Respiratory Rate [Bilateral Throughout] Blood Pressure 176/89 179/89 179/89 O2 Sat by Pulse 100 100 Oximetry 04/24/21 04/24/21 04/24/21 08:40 08:50 09:00 Temperature Pulse Rate 95 H 95 H 95 H Pulse Rate [ Bilateral Throughout] Pulse Rate [ From Monitor] Respiratory 26 H 27 H 26 H Rate Respiratory Rate [Bilateral Throughout] Blood Pressure 179/89 183/90 183/90 O2 Sat by Pulse 100 100 100 Oximetry 04/24/21 04/24/21 04/24/21 09:10 09:11 09:20 Temperature Pulse Rate 95 H 95 H 95 H Pulse Rate [ Bilateral Throughout] Pulse Rate [ From Monitor] Respiratory 26 H 26 H Rate Respiratory Rate [Bilateral Throughout] Blood Pressure 183/90 176/90 O2 Sat by Pulse 100 99 100 Oximetry 04/24/21 04/24/21 04/24/21 09:21 09:24 09:30 Temperature Pulse Rate 96 H 96 H Pulse Rate [ 94 H Bilateral Throughout] Pulse Rate [ From Monitor] Respiratory 26 H Rate Respiratory 26 H Rate [Bilateral Throughout] Blood Pressure 176/90 185/99 O2 Sat by Pulse 99 Oximetry 04/24/21 04/24/21 04/24/21 09:40 09:50 10:00 Temperature Pulse Rate 96 H 95 H 96 H Pulse Rate [ Bilateral Throughout] Pulse Rate [ From Monitor] Respiratory 26 H 26 H 26 H Rate Respiratory Rate [Bilateral Throughout] Blood Pressure 185/99 180/90 174/84 O2 Sat by Pulse 99 99 99 Oximetry 04/24/21 04/24/21 04/24/21 10:10 10:20 10:30 Temperature Pulse Rate 95 H 93 H 92 H Pulse Rate [ Bilateral Throughout] Pulse Rate [ From Monitor] Respiratory 26 H 26 H 26 H Rate Respiratory Rate [Bilateral Throughout] Blood Pressure 172/82 158/82 148/77 O2 Sat by Pulse 99 98 98 Oximetry 04/24/21 04/24/21 04/24/21 10:40 10:50 11:00 Temperature Pulse Rate 91 H 90 93 H Pulse Rate [ Bilateral Throughout] Pulse Rate [ From Monitor] Respiratory 26 H 26 H 26 H Rate Respiratory Rate [Bilateral Throughout] Blood Pressure 148/77 147/72 147/72 O2 Sat by Pulse 99 99 100 Oximetry 04/24/21 04/24/21 04/24/21 11:10 11:12 11:20 Temperature Pulse Rate 87 86 85 Pulse Rate [ Bilateral Throughout] Pulse Rate [ From Monitor] Respiratory 26 H 26 H Rate Respiratory Rate [Bilateral Throughout] Blood Pressure 144/69 141/66 141/66 O2 Sat by Pulse 99 100 99 Oximetry 04/24/21 04/24/21 04/24/21 11:30 11:40 11:50 Temperature Pulse Rate 84 83 82 Pulse Rate [ Bilateral Throughout] Pulse Rate [ From Monitor] Respiratory 26 H 26 H 26 H Rate Respiratory Rate [Bilateral Throughout] Blood Pressure 141/66 128/65 129/64 O2 Sat by Pulse 98 98 98 Oximetry 04/24/21 04/24/21 04/24/21 12:00 12:10 12:20 Temperature 98 F Pulse Rate 81 80 80 Pulse Rate [ Bilateral Throughout] Pulse Rate [ 81 From Monitor] Respiratory 26 H 26 H 26 H Rate Respiratory Rate [Bilateral Throughout] Blood Pressure 130/68 130/68 135/67 O2 Sat by Pulse 98 98 99 Oximetry 04/24/21 04/24/21 04/24/21 12:30 12:40 12:50 Temperature Pulse Rate 80 79 79 Pulse Rate [ Bilateral Throughout] Pulse Rate [ From Monitor] Respiratory 26 H 26 H 26 H Rate Respiratory Rate [Bilateral Throughout] Blood Pressure 135/66 135/66 135/67 O2 Sat by Pulse 99 99 99 Oximetry 04/24/21 04/24/21 04/24/21 13:00 13:10 13:34 Temperature Pulse Rate 79 78 78 Pulse Rate [ Bilateral Throughout] Pulse Rate [ From Monitor] Respiratory 26 H 26 H Rate Respiratory Rate [Bilateral Throughout] Blood Pressure 131/68 131/68 128/66 O2 Sat by Pulse 99 99 Oximetry - General Appearance General appearance: sedated on ventilator, intubated EENT: ATNC, mucous membranes moist Neck: no JVD Respiratory: Present: Clear to Ascultation Cardiology: regular, S1S2 Gastrointestinal: normoactive bowel sounds Neurologic: other (intubated, sedated ) - Lab 04/24/21 07:03 04/24/21 07:03 Most recent lab results ABG pH 7.485 (7.320-7.450) H 04/24/21 04:01 ABG O2 Saturation 97.6 (0-100) 04/24/21 04:01 Calcium 8.4 mg/dL (8.4-10.2) 04/24/21 07:03 Urine Creatinine 90.4 mg/dL (0.1-20.0) H 04/23/21 13:46 Urine Sodium 123 mmol/L 04/23/21 13:46 Urine Total Protein 103 mg/dL (5-11.8) H 04/23/21 13:46 Medications & Allergies - Medications Allergies/Adverse Reactions: Allergies hydrocodone Allergy (Unknown, Verified 05/29/19 17:35) Unknown HALLUCINATION acetaminophen [From Percocet] Allergy (Verified 12/22/20 15:37) Unknown HALLICUNATION Iodinated Contrast Media [Iodinated Contrast Media - IV Dye] Allergy (Verified 12/22/20 15:37) Itching oxycodone [From Percocet] Allergy (Verified 12/22/20 15:37) Unknown HALLICUNATION Home Medications: Home Medications Medication Instructions Recorded Confirmed Last Taken Type Aspirin [Aspirin BABY CHEW TAB] 81 mg PO QDAY #30 tab.chew 10/04/18 12/08/19 07/19/19 Rx Clopidogrel [Plavix] 75 mg PO QDAY #30 tablet 10/04/18 12/08/19 07/19/19 Rx amLODIPine 10 mg PO QDAY #30 tablet 10/04/18 12/08/19 07/19/19 Rx carvediloL [Coreg] 25 mg PO DAILY #30 tablet 10/04/18 12/08/19 07/19/19 Rx hydrALAZINE [Apresoline TAB] 25 mg PO TID #90 tablet 10/04/18 12/08/19 07/19/19 Rx ISOSORBIDE MONOnitrate [Imdur ER] 60 mg PO BID 05/28/19 12/08/19 07/19/19 History Potassium Chloride [K-Dur] 10 meq PO QDAY 05/28/19 12/08/19 07/19/19 History lisinopriL [Zestril TAB] 5 mg PO QDAY 05/28/19 12/08/19 07/19/19 History raNITIdine HCl [Zantac] 300 mg PO BID 05/28/19 12/08/19 07/19/19 History risperiDONE [RisperDAL] 0.5 mg PO BID 05/28/19 12/08/19 07/19/19 History AtorvaSTATin [Lipitor] 80 mg PO QHS tablet 05/30/19 12/08/19 07/19/19 Rx Nitroglycerin [Nitrostat] 0.4 mg SL .Q5MIN PRN #60 tab 12/08/19 Unknown Rx Ranolazine ER [Ranexa ER] 1,000 mg PO BID #60 tablet 12/08/19 Unknown Rx Temazepam 30 mg PO QHS #7 capsule 12/08/19 Unknown Rx Torsemide [Demadex] 40 mg PO BID #60 12/08/19 Unknown Rx Active Medications: Generic Name Dose Route Start Last Admin Trade Name Freq PRN Reason Stop Dose Admin Acetaminophen 650 mg 04/22/21 21:26 Acetaminophen 325 Mg Tab PO Q4H PRN Pain MILD(1-3)/Fever >100.5/GIORDANO Albuterol 2.5 mg 04/22/21 21:26 Albuterol 2.5 Mg/3 Ml Nebu IH Q3HRT PRN Shortness Of Breath Albuterol/Ipratropium 1 ampul 04/23/21 02:00 04/24/21 09:21 Ipratropium/Albuterol Sulfate 3 Ml Ampul.Neb IH 1 ampul Q6HRT SHELTON Administration Amlodipine Besylate 10 mg 04/23/21 10:00 04/24/21 09:24 Amlodipine 10 Mg Tab PO 10 mg QDAY SHELTON Administration Lipase/Protease/Amylase 1 each 04/23/21 09:33 Lipase 10,500/Protease 25,000/Amylase 43,750 (Units) Dr Carter NOLAN PRN PRN For Clogged Feeding Tube Aspirin 325 mg 04/24/21 10:00 04/24/21 09:24 Aspirin 325 Mg Tab PO 325 mg QDAY SHELTON Administration Atorvastatin Calcium 80 mg 04/22/21 22:00 04/23/21 21:27 Atorvastatin 40 Mg Tab PO 80 mg QHS SHELTON Administration Carvedilol 25 mg 04/23/21 08:00 04/24/21 08:31 Carvedilol 25 Mg Tab PO 25 mg DAILY@0800 SHELTON Administration Clopidogrel Bisulfate 75 mg 04/23/21 10:00 04/24/21 09:24 Clopidogrel 75 Mg Tab PO 75 mg QDAY SHELTON Administration Dextrose 0 ml 04/22/21 21:26 Dextrose 50% In Water (25gm) 50 Ml Syringe IV Q30MIN PRN Hypoglycemia Protocol Famotidine 20 mg 04/24/21 10:00 04/24/21 09:24 Famotidine 20 Mg/2 Ml Inj IV 20 mg DAILY SHELTON Administration Heparin Sodium (Porcine) 4,000 unit 04/22/21 21:39 Heparin 10,000 Units/10 Ml Vial 40 unit/kg (4000 unit) IV Q6H PRN Anti-Xa Assay < 0.1 units/ml Hydralazine HCl 10 mg 04/22/21 21:35 04/23/21 11:37 Hydralazine 20 Mg/1 Ml Inj IV 10 mg Q6H PRN Administration htn Hydralazine HCl 50 mg 04/24/21 09:00 04/24/21 13:34 Hydralazine 25 Mg Tab PO 50 mg Q8HR SHE[place]TON Administration Propofol 1,000 mg in 100 mls @ 3 mls/hr 04/22/21 19:00 04/24/21 07:58 Diprivan 10 Mg/Ml IV 0 mcg/kg/min TITR SHELTON 0 mls/hr Titration Protocol 5 MCG/KG/MIN Ceftriaxone Sodium 2 gm in 100 mls @ 200 mls/hr 04/23/21 10:00 04/24/21 09:25 Rocephin/Ns 2 Gm/100 Ml IV 04/25/21 10:29 200 mls/hr Q24HR SHELTON Administration Protocol Heparin Sodium/Sodium Chloride 25,000 unit in 500 mls @ 20 mls/hr 04/22/21 22:00 04/24/21 09:16 Heparin/ 0.45% Nacl-25,000 Unit/500 Ml IV 1,000 units/hr TITRATE SHELTON 20 mls/hr Titration Protocol 1,000 UNITS/HR Levetiracetam 750 mg/ Dextrose 107.5 mls @ 400 mls/hr 04/23/21 11:30 04/24/21 09:23 IV 400 mls/hr Q12HR SHELTON Administration Insulin Human Lispro 0 unit 04/23/21 00:00 04/24/21 13:35 Insulin Lispro 100 Unit/Ml SUB-Q 2 unit Q6HR SHELTON Administration Protocol Isosorbide Mononitrate 40 mg 04/24/21 09:00 04/24/21 13:34 Isosorbide Mononitrate 20 Mg Tab PO 40 mg Q8HR SHE[place] Administration Lorazepam 2 mg 04/22/21 22:52 04/23/21 03:22 Lorazepam 2 Mg/Ml Vial IV 2 mg Q4H PRN Administration Seizures Nitroglycerin 0.4 mg 04/22/21 21:26 Nitroglycerin 0.4 Mg Tab Subl SL .Q5MIN PRN Chest Pain Ondansetron HCl 4 mg 04/22/21 21:26 Ondansetron 4 Mg/2 Ml Inj IV Q8H PRN Nausea And Vomiting Ranolazine 1,000 mg 04/24/21 10:00 04/24/21 09:17 Ranolazine Er 500 Mg Tab 12hr PO Not Given BID SHELTON Simple Syrup 15 ml 04/23/21 09:33 Simple Syrup 15 Ml FEEDTUBE PRN PRN Hypoglycemia Simple Syrup 30 ml 04/23/21 09:33 Simple Syrup 15 Ml FEEDTUBE PRN PRN Hypoglycemia Sodium Bicarbonate 325 mg 04/23/21 09:33 Sodium Bicarbonate 325 Mg Tab FEEDTUBE PRN PRN For Clogged Feeding Tube Sodium Chloride 10 ml 04/22/21 22:00 04/24/21 09:25 Sodium Chloride 0.9% 10 Ml Flush Syringe IV 10 ml BID SHEL[place] Administration Sodium Chloride 10 ml 04/22/21 21:26 Sodium Chloride 0.9% 10 Ml Flush Syringe IV PRN PRN LINE FLUSH
--- NOTE | 2021-04-24 15:29 | Event Note ---
I spoke to the patient's Oliver Suazo at [phone]. I updated the patient's on current events and pending MRI. She states she will be by to visit the patient in about an hour.
--- NOTE | 2021-04-24 15:41 | Magnetic Resonance Report ---
MRI BRAIN WITHOUT CONTRAST INDICATION / CLINICAL INFORMATION: post cardiac arrest possible anoxic brain injury. TECHNIQUE: Multisequence, multiplanar images were obtained. COMPARISON: CT head dated 04/22/2021 FINDINGS: CEREBRAL and CEREBELLAR HEMISPHERES: There is diffuse cortical diffusion restriction throughout the s upratentorial compartment. Subtle areas of diffusion restriction are identified in the left thalamus and subinsular regions bilaterally as well. Focal areas of diffusion restriction are identified in th e cerebellar vermis near midline. These areas demonstrate decreased signal on the ADC map consistent with diffuse anoxic injury. Large chronic infarct in the right MCA distribution is again noted measur ing up to 9.1 x 3.5 cm in axial plane. There are moderate nonspecific chronic white matter changes bi laterally consistent with chronic microvascular ischemic disease. There is no evidence for hemorrhage , mass, mass effect or extra-axial fluid collection. VENTRICLES: Normal in size and configuration for age. VISUALIZED ORBITS: No significant abnormality. VISUALIZED PARANASAL SINUSES: There is mild mucosal thickening throughout all paranasal sinuses. Mode rate fluid levels are identified in both maxillary sinuses which probably represents retained secreti ons. ADDITIONAL FINDINGS: None. IMPRESSION: Findings consistent with diffuse anoxic injury as outlined above. Large chronic infarct in the right MCA distribution. Chronic white matter changes as described. Signer Name: Nemesio Black Jr, MD Signed: 04/24/2021 3:36 PM Workstation Name: [id number]
--- NOTE | 2021-04-24 15:43 | Magnetic Resonance Report ---
MRA HEAD WITHOUT CONTRAST HISTORY: CVA COMPARISON: None. TECHNIQUE: Routine MRA of the head is performed. 3-D/MIP reformats postprocessed. CONTRAST: None. FINDINGS: Intracranial vertebral arteries: Small in caliber but patent. Basilar artery: Small in caliber but patent. Posterior cerebral arteries: The tree chipper are patent. There is a large right posterior communicating mandy ry. origin of the left TRAUMA COUNSELLOR is noted. Intracranial internal carotid arteries: No significant abnormality. Anterior cerebral arteries: No significant abnormality. Middle cerebral arteries: Distal branches of the right MCA are attenuated correlating to the large ri ght MCA infarct. No acute occlusion is appreciated. Additional findings: None. IMPRESSION: Normal variant MRA head. No acute large vessel occlusion is appreciated. Signer Name: Nemesio Black Jr, MD Signed: 04/24/2021 3:39 PM Workstation Name: [id number]
[2021-04-24] MEDS ORDERED: HEPARIN 10,000 UNITS/10 ML VIAL IV ONE (17:00)
[2021-04-25] MEDS: INSULIN LISPRO 100 UNIT/ML SUB-Q SCH ×4 (00:16→18:00)
[2021-04-25] MEDS: HEPARIN/ 0.45% NACL DRIP 25,000 UNIT/500 ML BAG IV SCH (00:40)
[2021-04-25] MEDS: IPRATROPIUM/ALBUTEROL SULFATE 3 ML AMPUL.NEB IH SCH ×4 (03:03→21:53)
[2021-04-25] MEDS: hydrALAZINE 25 MG TAB PO SCH ×3 (06:33→22:10)
[2021-04-25 09:03] LABS: Hematocrit 32.5 % (35.5-45.6); Hemoglobin 10.8 gm/dl (11.8-15.2); Mean Corpuscular HGB Conc 33 % (32-34); Mean Corpuscular Volume 98 fl (84-94); Platelet Count 116 K/mm3 (140-440); Red Blood Count 3.32 M/mm3 (3.65-5.03); Red Cell Distribution Width 14.4 % (13.2-15.2)
[2021-04-25 09:32] LABS: Calcium 8.5 mg/dL (8.4-10.2)
--- NOTE | 2021-04-25 10:09 | Electrocardiograph Report ---
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
--- NOTE | 2021-04-25 10:11 | Electrocardiograph Report ---
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
[2021-04-25] MEDS: CLOPIDOGREL 75 MG TAB PO SCH (10:20)
[2021-04-25] MEDS: carvediloL 25 MG TAB PO SCH (10:20)
[2021-04-25] MEDS: amLODIPine 10 MG TAB PO SCH (10:20)
[2021-04-25] MEDS: FAMOTIDINE 20 MG TAB PO SCH (10:20)
[2021-04-25] MEDS: ASPIRIN 325 MG TAB PO SCH (10:21)
[2021-04-25] MEDS: cefTRIAXone/NS 2 GM/100 ML 2 GM/100 ML BAG IV SCH (10:21)
--- NOTE | 2021-04-25 10:27 | Progress Note ---
Assessment and Plan Assessment and Plan VTE prophylaxis?: Chemical Plan of care discussed with patient/family: Yes - Patient Problems # Cardiac arrest with possible anoxic brain injury -status post cardiac arrest at home with length of time in [place] is unknown -Elevated cardiac enzymes -Admit the patient to the ICU. - Patient is status post intubation. - Aspirin 325 mg p.o. daily. - Lipitor 80 mg p.o. daily. - Heparin drip as per protocol. - Continue the home cardiac medication. - echocardiogram showed EF#20-25% # Possible myoclonic jerks --s/p cardiac arrest with resucitation --Possible significant brain injury -EEG is remarkable for mild slowing 4-5 Hz with no sign of seizure is noted -Keppra 750 mg Iv BID - MRI brain is remarkable for diffuse brain anoxic injury with remote R.MCA infarct # History of CVA (cerebrovascular accident) Aspirin 325 mg p.o. daily. Lipitor 80 mg p.o. daily. We will continue home medication On heparin drip CT brain is suggestive of multiple emboli ?not noted on MRI # HTN (hypertension), benign Hydralazine 25 mg p.o. 3 times daily. # Hx of CABG Stable. We will continue the home cardiac medication. echocardiogram is noted #Hyperlipidemia Lipitor 80 mg p.o. daily. We will recheck the lipid panel,LDL#78 # Diabetes - sliding scale -A1C # Lactic acidosis -Patient got 2 to 3 L of fluid bolus in the emergency room. treat underlying infection # CHF (congestive heart failure) Stable We will continue the home medication. We also do echocardiogram. #DVT prophylaxis Heparin drip as per protocol for DVT prophylaxis. Pepcid 20 mg IV. twice daily for GI prophylaxis. Patient is a full code PLAN 1- consider stop sedation 2- keppra 750 mg IV bid 3- Brain MRI is suggestive of anoxic brain injury 5-EEG mild diffuse slowinh in 4-5 HZ . 6-Echo cardiogram noted worsening cardiac function--EF#20-25% 7- serial cardiac enzymes and heparine will follow Over all prognosis is quarded to poor Subjective Date of service: 04/25/21 Principal diagnosis: Cardiac; DELMI; Ac hypoxemic resp failure; Ac Encephalopathy; HFrEF; DM II Interval history: pt. is unresponsive vital stable , he is on heparine drip and off fentanyl , HTN No noted myoclonus or seizure but had eyes flickering ? seizure can not be excluded --EEG is remarkable for diffuse slowing 4-5 HZ , no sign of seizure is noted maintain Keppra 750 mg bid Creat.#2.2 Brain MRI is remarkable for remote right MCA infarct and noted acute anoxic brain injury , no sign of increase ICP or herniation Objective - Vital Sign Vital Signs - 12hr 04/24/21 04/24/21 04/24/21 22:30 22:40 22:50 Temperature Pulse Rate 61 62 62 Pulse Rate [ Bilateral Throughout] Pulse Rate [ From Monitor] Respiratory 16 16 16 Rate Respiratory Rate [Bilateral Throughout] Blood Pressure 109/50 109/50 110/51 O2 Sat by Pulse 100 100 100 Oximetry 04/24/21 04/24/21 04/24/21 23:00 23:10 23:20 Temperature Pulse Rate 60 60 61 Pulse Rate [ Bilateral Throughout] Pulse Rate [ From Monitor] Respiratory 16 16 16 Rate Respiratory Rate [Bilateral Throughout] Blood Pressure 110/55 110/55 112/56 O2 Sat by Pulse 100 100 100 Oximetry 04/24/21 04/24/21 04/24/21 23:30 23:40 23:50 Temperature Pulse Rate 60 61 60 Pulse Rate [ Bilateral Throughout] Pulse Rate [ From Monitor] Respiratory 16 16 16 Rate Respiratory Rate [Bilateral Throughout] Blood Pressure 110/52 110/52 111/54 O2 Sat by Pulse 100 100 100 Oximetry 04/25/21 04/25/21 04/25/21 00:00 00:05 00:10 Temperature 97.3 F L Pulse Rate 60 60 62 Pulse Rate [ Bilateral Throughout] Pulse Rate [ 60 From Monitor] Respiratory 16 16 Rate Respiratory Rate [Bilateral Throughout] Blood Pressure 117/53 117/53 112/56 O2 Sat by Pulse 100 100 100 Oximetry 04/25/21 04/25/21 04/25/21 00:20 00:30 00:40 Temperature Pulse Rate 61 62 61 Pulse Rate [ Bilateral Throughout] Pulse Rate [ From Monitor] Respiratory 16 16 16 Rate Respiratory Rate [Bilateral Throughout] Blood Pressure 115/55 114/54 114/54 O2 Sat by Pulse 100 100 100 Oximetry 04/25/21 04/25/21 04/25/21 00:50 01:00 01:10 Temperature Pulse Rate 61 62 62 Pulse Rate [ Bilateral Throughout] Pulse Rate [ From Monitor] Respiratory 16 16 16 Rate Respiratory Rate [Bilateral Throughout] Blood Pressure 121/54 121/54 117/55 O2 Sat by Pulse 100 100 100 Oximetry 04/25/21 04/25/21 04/25/21 01:20 01:30 01:40 Temperature Pulse Rate 61 62 62 Pulse Rate [ Bilateral Throughout] Pulse Rate [ From Monitor] Respiratory 16 16 16 Rate Respiratory Rate [Bilateral Throughout] Blood Pressure 122/57 122/57 117/55 O2 Sat by Pulse 100 100 100 Oximetry 04/25/21 04/25/21 04/25/21 01:50 02:00 02:10 Temperature Pulse Rate 62 61 61 Pulse Rate [ Bilateral Throughout] Pulse Rate [ From Monitor] Respiratory 16 16 16 Rate Respiratory Rate [Bilateral Throughout] Blood Pressure 120/53 120/53 118/54 O2 Sat by Pulse 100 100 100 Oximetry 04/25/21 04/25/21 04/25/21 02:20 02:30 02:40 Temperature Pulse Rate 60 61 60 Pulse Rate [ Bilateral Throughout] Pulse Rate [ From Monitor] Respiratory 16 16 16 Rate Respiratory Rate [Bilateral Throughout] Blood Pressure 115/55 119/55 119/55 O2 Sat by Pulse 100 100 100 Oximetry 04/25/21 04/25/21 04/25/21 02:50 03:00 03:03 Temperature Pulse Rate 61 61 Pulse Rate [ 63 Bilateral Throughout] Pulse Rate [ From Monitor] Respiratory 16 16 Rate Respiratory 16 Rate [Bilateral Throughout] Blood Pressure 122/55 122/55 O2 Sat by Pulse 100 100 Oximetry 04/25/21 04/25/21 04/25/21 03:10 03:20 03:30 Temperature Pulse Rate 60 60 61 Pulse Rate [ Bilateral Throughout] Pulse Rate [ From Monitor] Respiratory 17 17 17 Rate Respiratory Rate [Bilateral Throughout] Blood Pressure 125/56 127/60 127/60 O2 Sat by Pulse 100 100 100 Oximetry 04/25/21 04/25/21 04/25/21 03:40 03:50 04:00 Temperature 96.6 F L Pulse Rate 60 61 62 Pulse Rate [ Bilateral Throughout] Pulse Rate [ 62 From Monitor] Respiratory 17 17 17 Rate Respiratory Rate [Bilateral Throughout] Blood Pressure 129/60 132/62 132/62 O2 Sat by Pulse 100 100 100 Oximetry 04/25/21 04/25/21 04/25/21 04:10 04:20 04:30 Temperature Pulse Rate 63 63 60 Pulse Rate [ Bilateral Throughout] Pulse Rate [ From Monitor] Respiratory 10 L 17 15 Rate Respiratory Rate [Bilateral Throughout] Blood Pressure 131/71 138/72 138/72 O2 Sat by Pulse 100 100 100 Oximetry 04/25/21 04/25/21 04/25/21 04:40 04:50 05:00 Temperature Pulse Rate 63 63 62 Pulse Rate [ Bilateral Throughout] Pulse Rate [ From Monitor] Respiratory 16 16 16 Rate Respiratory Rate [Bilateral Throughout] Blood Pressure 138/72 117/55 117/55 O2 Sat by Pulse 99 99 99 Oximetry 04/25/21 04/25/21 04/25/21 05:10 05:20 05:30 Temperature Pulse Rate 63 62 62 Pulse Rate [ Bilateral Throughout] Pulse Rate [ From Monitor] Respiratory 16 16 16 Rate Respiratory Rate [Bilateral Throughout] Blood Pressure 115/52 117/58 117/58 O2 Sat by Pulse 99 99 99 Oximetry 04/25/21 04/25/21 04/25/21 05:40 05:50 06:00 Temperature Pulse Rate 62 64 63 Pulse Rate [ Bilateral Throughout] Pulse Rate [ From Monitor] Respiratory 16 16 16 Rate Respiratory Rate [Bilateral Throughout] Blood Pressure 115/52 117/51 117/51 O2 Sat by Pulse 99 99 100 Oximetry 04/25/21 04/25/21 04/25/21 06:10 06:20 06:30 Temperature Pulse Rate 63 63 65 Pulse Rate [ Bilateral Throughout] Pulse Rate [ From Monitor] Respiratory 16 16 16 Rate Respiratory Rate [Bilateral Throughout] Blood Pressure 118/55 121/55 123/55 O2 Sat by Pulse 99 100 100 Oximetry 04/25/21 04/25/21 04/25/21 06:33 06:40 06:50 Temperature Pulse Rate 64 64 65 Pulse Rate [ Bilateral Throughout] Pulse Rate [ From Monitor] Respiratory 16 16 Rate Respiratory Rate [Bilateral Throughout] Blood Pressure 115/55 123/55 123/55 O2 Sat by Pulse 100 100 Oximetry 04/25/21 04/25/21 04/25/21 07:00 07:10 07:20 Temperature Pulse Rate 66 66 66 Pulse Rate [ Bilateral Throughout] Pulse Rate [ From Monitor] Respiratory 16 16 14 Rate Respiratory Rate [Bilateral Throughout] Blood Pressure 123/55 124/55 124/55 O2 Sat by Pulse 100 100 100 Oximetry 04/25/21 04/25/21 04/25/21 07:30 07:40 07:50 Temperature Pulse Rate 67 63 62 Pulse Rate [ Bilateral Throughout] Pulse Rate [ From Monitor] Respiratory 19 16 16 Rate Respiratory Rate [Bilateral Throughout] Blood Pressure 124/55 129/62 129/62 O2 Sat by Pulse 94 99 98 Oximetry 04/25/21 04/25/21 04/25/21 08:00 08:10 08:43 Temperature 94 F L Pulse Rate 62 62 Pulse Rate [ 69 Bilateral Throughout] Pulse Rate [ From Monitor] Respiratory 16 15 Rate Respiratory 16 Rate [Bilateral Throughout] Blood Pressure 129/62 132/59 O2 Sat by Pulse 98 99 Oximetry 04/25/21 04/25/21 09:00 10:20 Temperature Pulse Rate 66 79 Pulse Rate [ Bilateral Throughout] Pulse Rate [ From Monitor] Respiratory Rate Respiratory Rate [Bilateral Throughout] Blood Pressure 140/47 165/70 O2 Sat by Pulse 99 Oximetry - General Apperance Constitutional: comfortable - Respiratory Respiratory: lungs clear, rhonchi, stridor - Cardiovascular Cardiovascular: regular rate, normal S1, normal S2 Extremities: no peripheral edema bilat - Gastrointestinal Gastrointestinal: normoactive bowel sounds - Integumentary Integumentary: normal - Neurologic Cranial nerve examination: other (pupils constricted sluggish to reaction , no corneal no EOM no gag no noted spontaneous breathing is noted) Detailed motor examination: grossly full strength in, full strength in all sheela, other - Laboratory Findings CBC and BMP: 04/25/21 08:55 04/25/21 08:55 Abnormal Lab Findings: Abnormal Labs 04/22/21 04/22/21 04/22/21 18:12 18:12 18:12 WBC 14.6 H RBC Hgb Hct MCV 102 H MCH 33 H Plt Count Lymph % (Auto) Lymph # (Auto) [place] # (Auto) Seg Neutrophils % 70.8 H Seg Neutrophils # 10.3 H INR 1.17 H D-Dimer ABG pH POC ABG pCO2 POC ABG pO2 ABG Hemoglobin ABG Sodium ABG Potassium ABG Glucose Carboxyhemoglobin Potassium Chloride 93.4 L Carbon Dioxide 21 L BUN Creatinine Glucose 186 H POC Glucose Lactic Acid Lactate Dehydrogenase Troponin T 0.031 H C-Reactive Protein NT-Pro-B Natriuret Pep 2448 H Arterial Blood Glucose Arterial Blood Ionized Calcium Urine Creatinine Urine Total Protein 04/22/21 04/22/21 04/22/21 18:12 19:17 20:58 WBC RBC Hgb Hct MCV MCH Plt Count Lymph % (Auto) Lymph # (Auto) [place] # (Auto) Seg Neutrophils % Seg Neutrophils # INR D-Dimer ABG pH POC ABG pCO2 POC ABG pO2 ABG Hemoglobin ABG Sodium ABG Potassium ABG Glucose Carboxyhemoglobin Potassium Chloride Carbon Dioxide BUN Creatinine Glucose POC Glucose Lactic Acid 11.00 H* 9.50 H* 5.70 H* Lactate Dehydrogenase Troponin T C-Reactive Protein NT-Pro-B Natriuret Pep Arterial Blood Glucose Arterial Blood Ionized Calcium Urine Creatinine Urine Total Protein 04/22/21 04/22/21 04/22/21 20:58 21:10 23:03 WBC RBC Hgb Hct MCV MCH Plt Count Lymph % (Auto) Lymph # (Auto) [place] # (Auto) Seg Neutrophils % Seg Neutrophils # INR D-Dimer ABG pH 7.492 H POC ABG pCO2 30.4 L POC ABG pO2 80.3 L ABG Hemoglobin ABG Sodium ABG Potassium 3.2 L ABG Glucose 202 H Carboxyhemoglobin 1.6 H Potassium Chloride Carbon Dioxide BUN Creatinine Glucose POC Glucose 175 H Lactic Acid Lactate Dehydrogenase Troponin T 0.363 H* D C-Reactive Protein NT-Pro-B Natriuret Pep Arterial Blood Glucose 202 H Arterial Blood Ionized Calcium 4.2 L Urine Creatinine Urine Total Protein 04/22/21 04/23/21 04/23/21 23:40 02:36 02:36 WBC 14.6 H RBC Hgb Hct MCV 97 H MCH 33 H Plt Count Lymph % (Auto) 3.6 L Lymph # (Auto) 0.5 L [place] # (Auto) 1.0 H Seg Neutrophils % 89.4 H Seg Neutrophils # 13.0 H INR D-Dimer ABG pH POC ABG pCO2 POC ABG pO2 ABG Hemoglobin ABG Sodium ABG Potassium ABG Glucose Carboxyhemoglobin Potassium Chloride Carbon Dioxide BUN Creatinine Glucose POC Glucose Lactic Acid 3.60 H* Lactate Dehydrogenase Troponin T 1.020 H* D C-Reactive Protein NT-Pro-B Natriuret Pep Arterial Blood Glucose Arterial Blood Ionized Calcium Urine Creatinine Urine Total Protein 04/23/21 04/23/21 04/23/21 02:36 03:54 05:22 WBC RBC Hgb Hct MCV MCH Plt Count Lymph % (Auto) Lymph # (Auto) [place] # (Auto) Seg Neutrophils % Seg Neutrophils # INR D-Dimer ABG pH 7.536 H POC ABG pCO2 31.1 L POC ABG pO2 112.7 H ABG Hemoglobin ABG Sodium ABG Potassium 3.3 L ABG Glucose 129 H Carboxyhemoglobin Potassium Chloride 97.4 L Carbon Dioxide BUN 21 H Creatinine 1.6 H Glucose 145 H POC Glucose 123 H Lactic Acid Lactate Dehydrogenase Troponin T C-Reactive Protein NT-Pro-B Natriuret Pep Arterial Blood Glucose 129 H Arterial Blood Ionized Calcium 4.1 L Urine Creatinine Urine Total Protein 04/23/21 04/23/21 04/23/21 08:58 08:58 08:58 WBC RBC Hgb Hct MCV MCH Plt Count Lymph % (Auto) Lymph # (Auto) [place] # (Auto) Seg Neutrophils % Seg Neutrophils # INR D-Dimer 8003.00 H ABG pH POC ABG pCO2 POC ABG pO2 ABG Hemoglobin ABG Sodium ABG Potassium ABG Glucose Carboxyhemoglobin Potassium Chloride Carbon Dioxide BUN Creatinine Glucose POC Glucose Lactic Acid 2.40 H* Lactate Dehydrogenase 546 H Troponin T C-Reactive Protein 2.20 H NT-Pro-B Natriuret Pep Arterial Blood Glucose Arterial Blood Ionized Calcium Urine Creatinine Urine Total Protein 04/23/21 04/23/21 04/23/21 12:07 13:46 17:29 WBC RBC Hgb Hct MCV MCH Plt Count Lymph % (Auto) Lymph # (Auto) [place] # (Auto) Seg Neutrophils % Seg Neutrophils # INR D-Dimer ABG pH POC ABG pCO2 POC ABG pO2 ABG Hemoglobin ABG Sodium ABG Potassium ABG Glucose Carboxyhemoglobin Potassium Chloride Carbon Dioxide BUN Creatinine Glucose POC Glucose 150 H 145 H Lactic Acid Lactate Dehydrogenase Troponin T C-Reactive Protein NT-Pro-B Natriuret Pep Arterial Blood Glucose Arterial Blood Ionized Calcium Urine Creatinine 90.4 H Urine Total Protein 103 H 04/23/21 04/24/21 04/24/21 23:51 04:01 05:02 WBC RBC Hgb Hct MCV MCH Plt Count Lymph % (Auto) Lymph # (Auto) [place] # (Auto) Seg Neutrophils % Seg Neutrophils # INR D-Dimer ABG pH 7.485 H POC ABG pCO2 POC ABG pO2 ABG Hemoglobin ABG Sodium 135.8 L ABG Potassium ABG Glucose 140 H Carboxyhemoglobin Potassium Chloride Carbon Dioxide BUN Creatinine Glucose POC Glucose 140 H 136 H Lactic Acid Lactate Dehydrogenase Troponin T C-Reactive Protein NT-Pro-B Natriuret Pep Arterial Blood Glucose 140 H Arterial Blood Ionized Calcium 4.3 L Urine Creatinine Urine Total Protein 04/24/21 04/24/21 04/24/21 07:03 07:03 11:40 WBC 12.4 H RBC 3.60 L Hgb 11.7 L Hct 34.7 L MCV 96 H MCH 33 H Plt Count Lymph % (Auto) Lymph # (Auto) [place] # (Auto) Seg Neutrophils % Seg Neutrophils # INR D-Dimer ABG pH POC ABG pCO2 POC ABG pO2 ABG Hemoglobin ABG Sodium ABG Potassium ABG Glucose Carboxyhemoglobin Potassium 3.5 L Chloride Carbon Dioxide BUN 28 H Creatinine 2.2 H Glucose 133 H POC Glucose 153 H Lactic Acid Lactate Dehydrogenase Troponin T C-Reactive Protein NT-Pro-B Natriuret Pep Arterial Blood Glucose Arterial Blood Ionized Calcium Urine Creatinine Urine Total Protein 04/24/21 04/24/21 04/25/21 17:20 23:39 03:05 WBC RBC Hgb Hct MCV MCH Plt Count Lymph % (Auto) Lymph # (Auto) [place] # (Auto) Seg Neutrophils % Seg Neutrophils # INR D-Dimer ABG pH 7.462 H POC ABG pCO2 POC ABG pO2 80.2 L ABG Hemoglobin 11.0 L ABG Sodium ABG Potassium 3.3 L ABG Glucose 137 H Carboxyhemoglobin Potassium Chloride Carbon Dioxide BUN Creatinine Glucose POC Glucose 170 H 130 H Lactic Acid Lactate Dehydrogenase Troponin T C-Reactive Protein NT-Pro-B Natriuret Pep Arterial Blood Glucose 137 H Arterial Blood Ionized Calcium 4.5 L Urine Creatinine Urine Total Protein 04/25/21 04/25/21 04/25/21 05:31 08:55 08:55 WBC RBC 3.32 L Hgb 10.8 L Hct 32.5 L MCV 98 H MCH Plt Count 116 L Lymph % (Auto) Lymph # (Auto) [place] # (Auto) Seg Neutrophils % Seg Neutrophils # INR D-Dimer ABG pH POC ABG pCO2 POC ABG pO2 ABG Hemoglobin ABG Sodium ABG Potassium ABG Glucose Carboxyhemoglobin Potassium 3.4 L Chloride Carbon Dioxide BUN 34 H Creatinine 1.9 H Glucose 123 H POC Glucose 152 H Lactic Acid Lactate Dehydrogenase Troponin T C-Reactive Protein NT-Pro-B Natriuret Pep Arterial Blood Glucose Arterial Blood Ionized Calcium Urine Creatinine Urine Total Protein
[2021-04-25] MEDS: RANOLAZINE ER 500 MG TAB 12HR PO SCH ×2 (10:29→22:11)
[2021-04-25] MEDS: levETIRAcetam 750 MG in DEXTROSE 5% IN WATER 100 ML IV SCH ×2 (10:29→22:13)
--- NOTE | 2021-04-25 11:53 | Progress Note ---
<MALLORY CHAVEZ - Last Filed: 04/25/21 11:49> Assessment and Plan Out of the hospital cardiopulmonary arrest possible anoxic encephalopathy History of complex inoperable three-vessel coronary artery disease followed by Dr. Herzog at [facility] History of ischemic cardiomyopathy echocardiogram shows an ejection fraction of 20 to 25%, with moderate mitral regurgitation. Continue supportive management and guideline directed medical therapy as tolerated. Subjective Date of service: 04/25/21 Principal diagnosis: Cardiac; DELMI; Ac hypoxemic resp failure; Ac Encephalopathy; HFrEF; DM II Interval history: Patient is unresponsive on the ventilator. Objective Vital Signs Temp Pulse Pulse Pulse Resp Resp BP 04/25/21 10:20 84 34 H 151/78 04/25/21 09:00 66 140/47 04/25/21 08:43 69 16 04/25/21 08:10 62 15 132/59 04/25/21 08:00 94 F L 62 16 129/62 04/25/21 07:50 62 16 129/62 04/25/21 07:40 63 16 129/62 04/25/21 07:30 67 19 124/55 04/25/21 07:20 66 14 124/55 04/25/21 07:10 66 16 124/55 04/25/21 07:00 66 16 123/55 04/25/21 06:50 65 16 123/55 04/25/21 06:40 64 16 123/55 04/25/21 06:33 64 115/55 04/25/21 06:30 65 16 123/55 04/25/21 06:20 63 16 121/55 04/25/21 06:10 63 16 118/55 04/25/21 06:00 63 16 117/51 04/25/21 05:50 64 16 117/51 04/25/21 05:40 62 16 115/52 04/25/21 05:30 62 16 117/58 04/25/21 05:20 62 16 117/58 04/25/21 05:10 63 16 115/52 04/25/21 05:00 62 16 117/55 04/25/21 04:50 63 16 117/55 04/25/21 04:40 63 16 138/72 04/25/21 04:30 60 15 138/72 04/25/21 04:20 63 17 138/72 06/02/ 04:10 63 10 L 131/71 04/25/21 04:00 96.6 F L 62 62 17 132/62 06/02/21 03:50 61 17 132/62 06/02/ 03:40 60 17 129/60 06/02/21 03:30 61 17 127/60 06/02/21 03:20 60 17 127/60 06/02/21 03:10 60 17 125/56 02 03:03 63 16 0602 03:00 61 16 122/55 06/02/ 02:50 61 16 122/55 06/02 02:40 60 16 119/55 02 02:30 61 16 119/55 /02 02:20 60 16 115/55 02 02:10 61 16 118/54 04/25/21 02:00 61 16 120/53 06/02 01:50 62 16 120/53 02 01:40 62 16 117/55 02 01:30 62 16 122/57 02 01:20 61 16 122/57 02 01:10 62 16 117/55 02 01:00 62 16 121/54 02 00:50 61 16 121/54 02 00:40 61 16 114/54 /02/21 00:30 62 16 114/54 02 00:20 61 16 115/55 /02 00:10 62 16 112/56 02 00:05 60 117/53 /02 00:00 97.3 F L 60 60 16 117/53 06/12/14 23:50 60 16 111/54 06/12/14 23:40 61 16 110/52 06/12/14 23:30 60 16 110/52 06/01 23:20 61 16 112/56 04/24/21 23:10 60 16 110/55 06/0121 23:00 60 16 110/55 04/24/21 22:50 62 16 110/51 06/21 22:40 62 16 109/50 06 22:30 61 16 109/50 04/24/21 22:20 62 16 110/52 06/01/21 22:10 64 16 115/54 04/24/21 22:00 62 16 115/54 04/24/21 21:50 64 16 114/53 04/24/21 21:40 63 16 112/54 04/24/21 21:30 63 16 112/54 04/24/21 21:20 64 16 103/53 04/24/21 21:10 64 16 114/54 04/24/21 21:00 65 16 120/58 04/24/21 20:50 65 16 120/58 04/24/21 20:40 65 16 119/58 04/24/21 20:30 65 17 119/58 04/24/21 20:20 64 16 115/58 04/24/21 20:10 66 18 109/52 04/24/21 20:00 64 66 64 16 17 109/52 04/24/21 19:56 97.5 F L 65 108/54 04/24/21 19:50 65 26 H 108/54 04/24/21 19:40 64 26 H 105/53 04/24/21 19:30 65 26 H 105/53 04/24/21 19:20 65 26 H 108/50 04/24/21 19:12 65 26 H 101/49 04/24/21 19:10 65 26 H 101/49 04/24/21 19:00 65 26 H 101/49 04/24/21 18:50 66 26 H 99/48 04/24/21 18:40 65 26 H 98/48 04/24/21 18:30 67 26 H 98/48 04/24/21 18:20 65 26 H 100/49 04/24/21 18:10 66 26 H 100/49 04/24/21 18:00 65 26 H 100/49 04/24/21 17:50 65 26 H 100/51 04/24/21 17:40 66 26 H 98/46 04/24/21 17:30 66 26 H 98/46 04/24/21 17:20 68 26 H 101/47 04/24/21 17:10 69 26 H 100/47 04/24/21 17:00 69 26 H 100/47 04/24/21 16:50 69 26 H 91/43 04/24/21 16:40 69 20 97/45 04/24/21 16:30 70 26 H 97/45 04/24/21 16:20 70 26 H 110/57 04/24/21 16:10 71 26 H 114/60 04/24/21 16:03 70 102/50 04/24/21 16:02 72 26 H 04/24/21 16:00 98.2 F 70 70 26 H 102/50 04/24/21 15:50 72 26 H 110/57 04/24/21 15:40 72 26 H 113/58 04/24/21 15:34 114/60 04/24/21 14:30 76 26 H 114/60 04/24/21 14:20 76 26 H 121/62 04/24/21 14:10 77 26 H 122/63 04/24/21 14:00 76 26 H 131/65 04/24/21 13:50 77 26 H 131/65 04/24/21 13:40 78 26 H 128/66 04/24/21 13:34 78 128/66 04/24/21 13:30 78 26 H 134/67 04/24/21 13:20 78 26 H 134/67 04/24/21 13:10 78 26 H 131/68 04/24/21 13:00 79 26 H 131/68 04/24/21 12:50 79 26 H 135/67 04/24/21 12:40 79 26 H 135/66 04/24/21 12:30 80 26 H 135/66 04/24/21 12:20 80 26 H 135/67 04/24/21 12:10 80 26 H 130/68 04/24/21 12:00 98 F 80 81 26 H 130/68 04/24/21 11:50 82 26 H 129/64 Pulse Ox 04/25/21 10:20 98 04/25/21 09:00 99 04/25/21 08:43 04/25/21 08:10 99 04/25/21 08:00 98 04/25/21 07:50 98 04/25/21 07:40 99 04/25/21 07:30 94 04/25/21 07:20 100 04/25/21 07:10 100 04/25/21 07:00 100 04/25/21 06:50 100 04/25/21 06:40 100 04/25/21 06:33 06 06:30 100 04/25/21 06:20 100 04/25/21 06:10 99 04/25/21 06:00 100 04/25/21 05:50 99 04/25/21 05:40 99 04/25/21 05:30 99 04/25/21 05:20 99 04/25/21 05:10 99 04/25/21 05:00 99 04/25/21 04:50 99 04/25/21 04:40 99 04/25/21 04:30 100 04/25/21 04:20 100 04/25/21 04:10 100 04/25/21 04:00 100 04/25/21 03:50 100 04/25/21 03:40 100 04/25/21 03:30 100 04/25/21 03:20 100 04/25/21 03:10 100 04/25/21 03:03 04/25/21 03:00 100 04/25/21 02:50 100 04/25/21 02:40 100 04/25/21 02:30 100 04/25/21 02:20 100 04/25/21 02:10 100 04/25/21 02:00 100 04/25/21 01:50 100 04/25/21 01:40 100 04/25/21 01:30 100 04/25/21 01:20 100 04/25/21 01:10 100 04/25/21 01:00 100 04/25/21 00:50 100 04/25/21 00:40 100 04/25/21 00:30 100 04/25/21 00:20 100 04/25/21 00:10 100 04/25/21 00:05 100 04/25/21 00:00 100 04/24/21 23:50 100 04/24/21 23:40 100 04/24/21 23:30 100 04/24/21 23:20 100 04/24/21 23:10 100 04/24/21 23:00 100 04/24/21 22:50 100 04/24/21 22:40 100 04/24/21 22:30 100 04/24/21 22:20 100 04/24/21 22:10 100 04/24/21 22:00 100 04/24/21 21:50 100 04/24/21 21:40 100 04/24/21 21:30 100 04/24/21 21:20 100 04/24/21 21:10 100 04/24/21 21:00 100 04/24/21 20:50 100 04/24/21 20:40 100 04/24/21 20:30 100 04/24/21 20:20 100 04/24/21 20:10 100 04/24/21 20:00 100 04/24/21 19:56 100 04/24/21 19:50 100 04/24/21 19:40 100 04/24/21 19:30 100 04/24/21 19:20 100 04/24/21 19:12 99 04/24/21 19:10 99 04/24/21 19:00 99 04/24/21 18:50 99 04/24/21 18:40 99 04/24/21 18:30 98 04/24/21 18:20 99 04/24/21 18:10 98 04/24/21 18:00 98 04/24/21 17:50 99 04/24/21 17:40 98 04/24/21 17:30 97 04/24/21 17:20 99 04/24/21 17:10 99 04/24/21 17:00 99 04/24/21 16:50 99 04/24/21 16:40 96 04/24/21 16:30 96 04/24/21 16:20 97 04/24/21 16:10 99 04/24/21 16:03 100 04/24/21 16:02 04/24/21 16:00 99 04/24/21 15:50 98 04/24/21 15:40 99 04/24/21 15:34 100 04/24/21 14:30 100 04/24/21 14:20 100 04/24/21 14:10 100 04/24/21 14:00 100 04/24/21 13:50 100 04/24/21 13:40 100 04/24/21 13:34 04/24/21 13:30 99 04/24/21 13:20 99 04/24/21 13:10 99 04/24/21 13:00 99 04/24/21 12:50 99 04/24/21 12:40 99 04/24/21 12:30 99 04/24/21 12:20 99 04/24/21 12:10 98 04/24/21 12:00 98 04/24/21 11:50 98 - Physical Examination General: Other (Unresponsive, on the vent) HEENT: Positive: Other (Pupils fixed) Neck: Positive: neck supple Cardiac: Positive: Reg Rate and Rhythm Neuro: Positive: Other (Unresponsive, on the vent) - Labs and Meds CBC 04/25/21 Range/Units 08:55 WBC 8.2 (4.5-11.0) K/mm3 RBC 3.32 L (3.65-5.03) M/mm3 Hgb 10.8 L (11.8-15.2) gm/dl Hct 32.5 L (35.5-45.6) % Plt Count 116 L (140-440) K/mm3 Comprehensive Metabolic Panel 04/25/21 Range/Units 08:55 Sodium 141 (137-145) mmol/L Potassium 3.4 L (3.6-5.0) mmol/L Chloride 104.2 (98-107) mmol/L Carbon Dioxide 30 (22-30) mmol/L BUN 34 H (9-20) mg/dL Creatinine 1.9 H (0.8-1.3) mg/dL Glucose 123 H (75-100) mg/dL Calcium 8.5 (8.4-10.2) mg/dL - Allied health notes Allied health notes reviewed: nursing <MICHELLE WILCOX - Last Filed: 05/01/21 17:09> Assessment and Plan - Patient Problems (1) Acute respiratory failure Status: Acute (2) Cardiac arrest Status: Acute (3) Encephalopathy Status: Acute (4) Hypertensive emergency Status: Acute Subjective Interval history: I SAW THIS PT & AGREE WITH THE Dx & Tx PLAN.
--- NOTE | 2021-04-25 12:04 | Progress Note ---
Assessment and Plan Cardiac arrest with ROSC Acute hypoxemic respiratory failure Acute kidney injury secondary to vasomotor nephropathy COVID-19 PUI NSTEMI Acute Encephalopathy Myoclonic jerks vs Seizures Lactic acidosis Elevated D-dimer CAD s/p CABG x3 Ischemic cardiomyopathy with EF of 40 to 45% Hypertension Hyperlipidemia CVA Diabetes type II - KCL 40 meq p.o. 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 - follow dopplers (consider CTA chest if negative) - discontinue empiric AB's after >/= 72 hours of negative blood cultures - continue care as below otherwise; - follow neurology evaluation - prn vasopressors for target MAP > 65 mmHg - inotropic support per cardiology recommendations - continue to wean supplemental oxygen for target O2 sat's > 90% acutely - VAP bundle addressed - continue lung protective strategies - continue bronchodilators with pulmonary hygiene per RT - wean per pulmonary driven protocols otherwise - continue Daily SAT and SBT assessment as tolerated - continue accuchecks with glycemic control per SSI (While critically ill target blood glucose of 140-180 mg/dL; avoid hypoglycemia) - sedation prn for target RASS 0 to -1 - avoid nephrotoxins, renally dose all medications - continue to avoid benzodiazepine's, reduce the possibility of delirium - AB's per ID rec's - prn analgesia per CPOT score - Maintenance of sleep-wake cycle, avoid delirium - enteral nutritional support at goal rate as tolerated - G.I. & VTE prophylaxis - PT/OT/ROM exercises - mobility protocols for pressure ulcer prophylaxis - Monitor hemodynamics closely - continue other care per attending / other consultants - discharge planning ongoing concurrently COVID SPECIFIC INTERVENTIONS - Remdesivir as per ID/Pulmonary developed protocols - consider systemic steroids for severe COVID-19 infection empirically - follow repeat COVID tests results - zinc and vitamin C supplementation - Monitor inflammatory markers per facility protocol - ferritin, Ddimer, CRP - consider therapeutic anticoagulation per system Protocol based on d-dimer and clinical considerations - Continue contact and airborne isolation .... Re-evaluate in am & prn CONDITION: CRITICAL PROGNOSIS: GUARDED CODE STATUS: FULL CODE The high probability of a clinically significant, sudden or life-threatening deterioration of the [respiratory, cardiovascular & neurologic] system(s) required my full and direct attention, intervention and personal management. The aggregate critical care time was [32] minutes without overlap. Time includes spent on; [x] Data Review and interpretation [x] Patient assessment and monitoring of vital signs [x] Documentation [x] Medication orders and management Subjective Date of service: 04/25/21 Principal diagnosis: Cardiac; DELMI; Ac hypoxemic resp failure; Ac Encephalopathy; HFrEF; DM II Interval history: Patient is seen today for: Cardiac arrest with ROSC; DELMI; Acute hypoxemic respiratory failure; PUI COVID-19; NSTEMI; Acute Encephalopathy Myoclonic jerks vs Seizures; Ischemic cardiomyopathy with EF of 20 to 25%; DM II; H/O CVA Seen and examined at bedside; 24hour events reviewed; nursing and respiratory care staff consulted; no adverse overnight events reported to me; resting peacefully in bed; remains on MVS; AMS is persistent; await dopplers result re: ? VTE; no emesis or overt aspiration; neurology evaluation ongoing Objective Vital Signs - 12hr 04/25/21 04/25/21 04/25/21 00:05 00:10 00:20 Temperature Pulse Rate 60 62 61 Pulse Rate [ Bilateral Throughout] Pulse Rate [ From Monitor] Respiratory 16 16 Rate Respiratory Rate [Bilateral Throughout] Blood Pressure 117/53 112/56 115/55 O2 Sat by Pulse 100 100 100 Oximetry 04/25/21 04/25/21 04/25/21 00:30 00:40 00:50 Temperature Pulse Rate 62 61 61 Pulse Rate [ Bilateral Throughout] Pulse Rate [ From Monitor] Respiratory 16 16 16 Rate Respiratory Rate [Bilateral Throughout] Blood Pressure 114/54 114/54 121/54 O2 Sat by Pulse 100 100 100 Oximetry 04/25/21 04/25/21 04/25/21 01:00 01:10 01:20 Temperature Pulse Rate 62 62 61 Pulse Rate [ Bilateral Throughout] Pulse Rate [ From Monitor] Respiratory 16 16 16 Rate Respiratory Rate [Bilateral Throughout] Blood Pressure 121/54 117/55 122/57 O2 Sat by Pulse 100 100 100 Oximetry 04/25/21 04/25/21 04/25/21 01:30 01:40 01:50 Temperature Pulse Rate 62 62 62 Pulse Rate [ Bilateral Throughout] Pulse Rate [ From Monitor] Respiratory 16 16 16 Rate Respiratory Rate [Bilateral Throughout] Blood Pressure 122/57 117/55 120/53 O2 Sat by Pulse 100 100 100 Oximetry 04/25/21 04/25/21 04/25/21 02:00 02:10 02:20 Temperature Pulse Rate 61 61 60 Pulse Rate [ Bilateral Throughout] Pulse Rate [ From Monitor] Respiratory 16 16 16 Rate Respiratory Rate [Bilateral Throughout] Blood Pressure 120/53 118/54 115/55 O2 Sat by Pulse 100 100 100 Oximetry 04/25/21 04/25/21 04/25/21 02:30 02:40 02:50 Temperature Pulse Rate 61 60 61 Pulse Rate [ Bilateral Throughout] Pulse Rate [ From Monitor] Respiratory 16 16 16 Rate Respiratory Rate [Bilateral Throughout] Blood Pressure 119/55 119/55 122/55 O2 Sat by Pulse 100 100 100 Oximetry 04/25/21 04/25/21 04/25/21 03:00 03:03 03:10 Temperature Pulse Rate 61 60 Pulse Rate [ 63 Bilateral Throughout] Pulse Rate [ From Monitor] Respiratory 16 17 Rate Respiratory 16 Rate [Bilateral Throughout] Blood Pressure 122/55 125/56 O2 Sat by Pulse 100 100 Oximetry 04/25/21 04/25/21 04/25/21 03:20 03:30 03:40 Temperature Pulse Rate 60 61 60 Pulse Rate [ Bilateral Throughout] Pulse Rate [ From Monitor] Respiratory 17 17 17 Rate Respiratory Rate [Bilateral Throughout] Blood Pressure 127/60 127/60 129/60 O2 Sat by Pulse 100 100 100 Oximetry 04/25/21 04/25/21 04/25/21 03:50 04:00 04:10 Temperature 96.6 F L Pulse Rate 61 62 63 Pulse Rate [ Bilateral Throughout] Pulse Rate [ 62 From Monitor] Respiratory 17 17 10 L Rate Respiratory Rate [Bilateral Throughout] Blood Pressure 132/62 132/62 131/71 O2 Sat by Pulse 100 100 100 Oximetry 04/25/21 04/25/21 04/25/21 04:20 04:30 04:40 Temperature Pulse Rate 63 60 63 Pulse Rate [ Bilateral Throughout] Pulse Rate [ From Monitor] Respiratory 17 15 16 Rate Respiratory Rate [Bilateral Throughout] Blood Pressure 138/72 138/72 138/72 O2 Sat by Pulse 100 100 99 Oximetry 04/25/21 04/25/21 04/25/21 04:50 05:00 05:10 Temperature Pulse Rate 63 62 63 Pulse Rate [ Bilateral Throughout] Pulse Rate [ From Monitor] Respiratory 16 16 16 Rate Respiratory Rate [Bilateral Throughout] Blood Pressure 117/55 117/55 115/52 O2 Sat by Pulse 99 99 99 Oximetry 06/02/21 06/02/21 06/02/21 05:20 05:30 05:40 Temperature Pulse Rate 62 62 62 Pulse Rate [ Bilateral Throughout] Pulse Rate [ From Monitor] Respiratory 16 16 16 Rate Respiratory Rate [Bilateral Throughout] Blood Pressure 117/58 117/58 115/52 O2 Sat by Pulse 99 99 99 Oximetry 04/25/21 04/25/21 04/25/21 05:50 06:00 06:10 Temperature Pulse Rate 64 63 63 Pulse Rate [ Bilateral Throughout] Pulse Rate [ From Monitor] Respiratory 16 16 16 Rate Respiratory Rate [Bilateral Throughout] Blood Pressure 117/51 117/51 118/55 O2 Sat by Pulse 99 100 99 Oximetry 04/25/21 04/25/21 04/25/21 06:20 06:30 06:33 Temperature Pulse Rate 63 65 64 Pulse Rate [ Bilateral Throughout] Pulse Rate [ From Monitor] Respiratory 16 16 Rate Respiratory Rate [Bilateral Throughout] Blood Pressure 121/55 123/55 115/55 O2 Sat by Pulse 100 100 Oximetry 04/25/21 04/25/21 04/25/21 06:40 06:50 07:00 Temperature Pulse Rate 64 65 66 Pulse Rate [ Bilateral Throughout] Pulse Rate [ From Monitor] Respiratory 16 16 16 Rate Respiratory Rate [Bilateral Throughout] Blood Pressure 123/55 123/55 123/55 O2 Sat by Pulse 100 100 100 Oximetry 04/25/21 04/25/21 04/25/21 07:10 07:20 07:30 Temperature Pulse Rate 66 66 67 Pulse Rate [ Bilateral Throughout] Pulse Rate [ From Monitor] Respiratory 16 14 19 Rate Respiratory Rate [Bilateral Throughout] Blood Pressure 124/55 124/55 124/55 O2 Sat by Pulse 100 100 94 Oximetry 04/25/21 04/25/21 04/25/21 07:40 07:50 08:00 Temperature 94 F L Pulse Rate 63 62 62 Pulse Rate [ Bilateral Throughout] Pulse Rate [ From Monitor] Respiratory 16 16 16 Rate Respiratory Rate [Bilateral Throughout] Blood Pressure 129/62 129/62 129/62 O2 Sat by Pulse 99 98 98 Oximetry 04/25/21 04/25/21 04/25/21 08:10 08:43 09:00 Temperature Pulse Rate 62 66 Pulse Rate [ 69 Bilateral Throughout] Pulse Rate [ From Monitor] Respiratory 15 Rate Respiratory 16 Rate [Bilateral Throughout] Blood Pressure 132/59 140/47 O2 Sat by Pulse 99 99 Oximetry 04/25/21 10:20 Temperature Pulse Rate 84 Pulse Rate [ Bilateral Throughout] Pulse Rate [ From Monitor] Respiratory 34 H Rate Respiratory Rate [Bilateral Throughout] Blood Pressure 151/78 O2 Sat by Pulse 98 Oximetry Constitutional: no acute distress, other (elderly obese male without significant patient-ventilator dyssynchrony) Eyes: non-icteric ENT: oropharynx moist, oropharyngeal exudate pre (copious), other (ETT 24 cm PERNELL) Neck: supple, no lymphadenopathy, no JVD Effort: normal Ascultation: Bilateral: diminished breath sounds, rhonchi (scant) Percussion: Bilateral: not dull Cardiovascular: regular rate and rhythm Gastrointestinal: normoactive bowel sounds, soft, non-tender, non-distended (protuberant) Integumentary: other (scars in abdomen and lower extremities) Extremities: no cyanosis, no edema, pulses normal, no ischemia or petechiae Neurologic: pupils equal and round (pin- point), unable to assess Psychiatric: other (unable to assess re: AMS) CBC and BMP: 04/26/21 04:49 04/26/21 08:54 ABG, PT/INR, D-dimer: ABG ABG pH 7.462 (7.320-7.450) H 04/25/21 03:05 POC ABG pCO2 40.5 mmHg (32.0-48.0) 04/25/21 03:05 POC ABG pO2 80.2 mmHg (83-108) L 04/25/21 03:05 POC ABG HCO3 28.3 04/25/21 03:05 ABG O2 Saturation 95.9 (0-100) 04/25/21 03:05 PT/INR, D-dimer PT 14.9 Sec. (12.2-14.9) 04/22/21 18:12 INR 1.17 (0.87-1.13) H 04/22/21 18:12 D-Dimer 8003.00 ng/mlDDU (0-234) H 04/23/21 08:58 Abnormal lab findings: Abnormal Labs 04/22/21 04/22/21 04/22/21 18:12 18:12 18:12 WBC 14.6 H RBC Hgb Hct MCV 102 H MCH 33 H Plt Count Lymph % (Auto) Lymph # (Auto) [place] # (Auto) Seg Neutrophils % 70.8 H Seg Neutrophils # 10.3 H INR 1.17 H D-Dimer ABG pH POC ABG pCO2 POC ABG pO2 ABG Hemoglobin ABG Sodium ABG Potassium ABG Glucose Carboxyhemoglobin Potassium Chloride 93.4 L Carbon Dioxide 21 L BUN Creatinine Glucose 186 H POC Glucose Lactic Acid Lactate Dehydrogenase Troponin T 0.031 H C-Reactive Protein NT-Pro-B Natriuret Pep 2448 H Arterial Blood Glucose Arterial Blood Ionized Calcium Urine Creatinine Urine Total Protein 04/22/21 04/22/21 04/22/21 18:12 19:17 20:58 WBC RBC Hgb Hct MCV MCH Plt Count Lymph % (Auto) Lymph # (Auto) [place] # (Auto) Seg Neutrophils % Seg Neutrophils # INR D-Dimer ABG pH POC ABG pCO2 POC ABG pO2 ABG Hemoglobin ABG Sodium ABG Potassium ABG Glucose Carboxyhemoglobin Potassium Chloride Carbon Dioxide BUN Creatinine Glucose POC Glucose Lactic Acid 11.00 H* 9.50 H* 5.70 H* Lactate Dehydrogenase Troponin T C-Reactive Protein NT-Pro-B Natriuret Pep Arterial Blood Glucose Arterial Blood Ionized Calcium Urine Creatinine Urine Total Protein 04/22/21 04/22/21 04/22/21 20:58 21:10 23:03 WBC RBC Hgb Hct MCV MCH Plt Count Lymph % (Auto) Lymph # (Auto) [place] # (Auto) Seg Neutrophils % Seg Neutrophils # INR D-Dimer ABG pH 7.492 H POC ABG pCO2 30.4 L POC ABG pO2 80.3 L ABG Hemoglobin ABG Sodium ABG Potassium 3.2 L ABG Glucose 202 H Carboxyhemoglobin 1.6 H Potassium Chloride Carbon Dioxide BUN Creatinine Glucose POC Glucose 175 H Lactic Acid Lactate Dehydrogenase Troponin T 0.363 H* D C-Reactive Protein NT-Pro-B Natriuret Pep Arterial Blood Glucose 202 H Arterial Blood Ionized Calcium 4.2 L Urine Creatinine Urine Total Protein 04/22/21 04/23/21 04/23/21 23:40 02:36 02:36 WBC 14.6 H RBC Hgb Hct MCV 97 H MCH 33 H Plt Count Lymph % (Auto) 3.6 L Lymph # (Auto) 0.5 L G[place] # (Auto) 1.0 H Seg Neutrophils % 89.4 H Seg Neutrophils # 13.0 H INR D-Dimer ABG pH POC ABG pCO2 POC ABG pO2 ABG Hemoglobin ABG Sodium ABG Potassium ABG Glucose Carboxyhemoglobin Potassium Chloride Carbon Dioxide BUN Creatinine Glucose POC Glucose Lactic Acid 3.60 H* Lactate Dehydrogenase Troponin T 1.020 H* D C-Reactive Protein NT-Pro-B Natriuret Pep Arterial Blood Glucose Arterial Blood Ionized Calcium Urine Creatinine Urine Total Protein 04/23/21 04/23/21 04/23/21 02:36 03:54 05:22 WBC RBC Hgb Hct MCV MCH Plt Count Lymph % (Auto) Lymph # (Auto) [place] # (Auto) Seg Neutrophils % Seg Neutrophils # INR D-Dimer ABG pH 7.536 H POC ABG pCO2 31.1 L POC ABG pO2 112.7 H ABG Hemoglobin ABG Sodium ABG Potassium 3.3 L ABG Glucose 129 H Carboxyhemoglobin Potassium Chloride 97.4 L Carbon Dioxide BUN 21 H Creatinine 1.6 H Glucose 145 H POC Glucose 123 H Lactic Acid Lactate Dehydrogenase Troponin T C-Reactive Protein NT-Pro-B Natriuret Pep Arterial Blood Glucose 129 H Arterial Blood Ionized Calcium 4.1 L Urine Creatinine Urine Total Protein 04/23/21 04/23/21 04/23/21 08:58 08:58 08:58 WBC RBC Hgb Hct MCV MCH Plt Count Lymph % (Auto) Lymph # (Auto) [place] # (Auto) Seg Neutrophils % Seg Neutrophils # INR D-Dimer 8003.00 H ABG pH POC ABG pCO2 POC ABG pO2 ABG Hemoglobin ABG Sodium ABG Potassium ABG Glucose Carboxyhemoglobin Potassium Chloride Carbon Dioxide BUN Creatinine Glucose POC Glucose Lactic Acid 2.40 H* Lactate Dehydrogenase 546 H Troponin T C-Reactive Protein 2.20 H NT-Pro-B Natriuret Pep Arterial Blood Glucose Arterial Blood Ionized Calcium Urine Creatinine Urine Total Protein 04/23/21 04/23/21 04/23/21 12:07 13:46 17:29 WBC RBC Hgb Hct MCV MCH Plt Count Lymph % (Auto) Lymph # (Auto) [place] # (Auto) Seg Neutrophils % Seg Neutrophils # INR D-Dimer ABG pH POC ABG pCO2 POC ABG pO2 ABG Hemoglobin ABG Sodium ABG Potassium ABG Glucose Carboxyhemoglobin Potassium Chloride Carbon Dioxide BUN Creatinine Glucose POC Glucose 150 H 145 H Lactic Acid Lactate Dehydrogenase Troponin T C-Reactive Protein NT-Pro-B Natriuret Pep Arterial Blood Glucose Arterial Blood Ionized Calcium Urine Creatinine 90.4 H Urine Total Protein 103 H 05/04/24/21 04/24/21 23:51 04:01 05:02 WBC RBC Hgb Hct MCV MCH Plt Count Lymph % (Auto) Lymph # (Auto) [place] # (Auto) Seg Neutrophils % Seg Neutrophils # INR D-Dimer ABG pH 7.485 H POC ABG pCO2 POC ABG pO2 ABG Hemoglobin ABG Sodium 135.8 L ABG Potassium ABG Glucose 140 H Carboxyhemoglobin Potassium Chloride Carbon Dioxide BUN Creatinine Glucose POC Glucose 140 H 136 H Lactic Acid Lactate Dehydrogenase Troponin T C-Reactive Protein NT-Pro-B Natriuret Pep Arterial Blood Glucose 140 H Arterial Blood Ionized Calcium 4.3 L Urine Creatinine Urine Total Protein 04/24/21 04/24/21 04/24/21 07:03 07:03 11:40 WBC 12.4 H RBC 3.60 L Hgb 11.7 L Hct 34.7 L MCV 96 H MCH 33 H Plt Count Lymph % (Auto) Lymph # (Auto) [place] # (Auto) Seg Neutrophils % Seg Neutrophils # INR D-Dimer ABG pH POC ABG pCO2 POC ABG pO2 ABG Hemoglobin ABG Sodium ABG Potassium ABG Glucose Carboxyhemoglobin Potassium 3.5 L Chloride Carbon Dioxide BUN 28 H Creatinine 2.2 H Glucose 133 H POC Glucose 153 H Lactic Acid Lactate Dehydrogenase Troponin T C-Reactive Protein NT-Pro-B Natriuret Pep Arterial Blood Glucose Arterial Blood Ionized Calcium Urine Creatinine Urine Total Protein 04/24/21 04/24/21 04/25/21 17:20 23:39 03:05 WBC RBC Hgb Hct MCV MCH Plt Count Lymph % (Auto) Lymph # (Auto) [place] # (Auto) Seg Neutrophils % Seg Neutrophils # INR D-Dimer ABG pH 7.462 H POC ABG pCO2 POC ABG pO2 80.2 L ABG Hemoglobin 11.0 L ABG Sodium ABG Potassium 3.3 L ABG Glucose 137 H Carboxyhemoglobin Potassium Chloride Carbon Dioxide BUN Creatinine Glucose POC Glucose 170 H 130 H Lactic Acid Lactate Dehydrogenase Troponin T C-Reactive Protein NT-Pro-B Natriuret Pep Arterial Blood Glucose 137 H Arterial Blood Ionized Calcium 4.5 L Urine Creatinine Urine Total Protein 04/25/21 04/25/21 04/25/21 05:31 08:55 08:55 WBC RBC 3.32 L Hgb 10.8 L Hct 32.5 L MCV 98 H MCH Plt Count 116 L Lymph % (Auto) Lymph # (Auto) [place] # (Auto) Seg Neutrophils % Seg Neutrophils # INR D-Dimer ABG pH POC ABG pCO2 POC ABG pO2 ABG Hemoglobin ABG Sodium ABG Potassium ABG Glucose Carboxyhemoglobin Potassium 3.4 L Chloride Carbon Dioxide BUN 34 H Creatinine 1.9 H Glucose 123 H POC Glucose 152 H Lactic Acid Lactate Dehydrogenase Troponin T C-Reactive Protein NT-Pro-B Natriuret Pep Arterial Blood Glucose Arterial Blood Ionized Calcium Urine Creatinine Urine Total Protein Chest x-ray: image reviewed Allied health notes reviewed: nursing
[2021-04-25] MEDS ORDERED: POTASSIUM CHLORIDE 20 MEQ PACKET FEEDTUBE ONE (14:00)
--- NOTE | 2021-04-25 17:19 | Progress Note ---
Assessment and Plan - Patient Problems (1) Acute kidney injury (DELMI) with acute tubular necrosis (ATN) Current Visit: Yes Status: Acute Plan to address problem: Acute kidney injury acute tubular necrosis secondary to hypotension status post cardiac arrest, kidney indices are stabilizeing , pt remains non-oliguric. Renal US showed no evidence of hydro/medical renal disease. cont supportive care for ATN avoid further nephrotoxins, NSAIDs IV contrast. maintain MAP > 65mmhg (2) Acute respiratory failure Current Visit: Yes Status: Acute Plan to address problem: Continue ventilator management per pulmonary. (3) Hypertensive emergency Current Visit: Yes Status: Acute Plan to address problem: Oral antihypertensive medications been resumed. 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 Sedation being weaned per neurology with close monitoring Subjective Date of service: 04/25/21 Principal diagnosis: Cardiac; DELMI; Ac hypoxemic resp failure; Ac Encephalopathy; HFrEF; DM II Interval history: Pt remains intubated, sedated. off vasopressor support Objective - Vital Signs Vital signs: Vital Signs - 12hr 04/25/21 04/25/21 04/25/21 05:20 05:30 05:40 Temperature Pulse Rate 62 62 62 Pulse Rate [ Bilateral Throughout] Pulse Rate [ From Monitor] Pulse Rate [ Right Dorsalis Pedis] Respiratory 16 16 16 Rate Respiratory Rate [Bilateral Throughout] Blood Pressure 117/58 117/58 115/52 O2 Sat by Pulse 99 99 99 Oximetry 04/25/21 04/25/21 04/25/21 05:50 06:00 06:10 Temperature Pulse Rate 64 63 63 Pulse Rate [ Bilateral Throughout] Pulse Rate [ From Monitor] Pulse Rate [ Right Dorsalis Pedis] Respiratory 16 16 16 Rate Respiratory Rate [Bilateral Throughout] Blood Pressure 117/51 117/51 118/55 O2 Sat by Pulse 99 100 99 Oximetry 04/25/21 04/25/21 04/25/21 06:20 06:30 06:33 Temperature Pulse Rate 63 65 64 Pulse Rate [ Bilateral Throughout] Pulse Rate [ From Monitor] Pulse Rate [ Right Dorsalis Pedis] Respiratory 16 16 Rate Respiratory Rate [Bilateral Throughout] Blood Pressure 121/55 123/55 115/55 O2 Sat by Pulse 100 100 Oximetry 04/25/21 04/25/21 04/25/21 06:40 06:50 07:00 Temperature Pulse Rate 64 65 66 Pulse Rate [ Bilateral Throughout] Pulse Rate [ From Monitor] Pulse Rate [ Right Dorsalis Pedis] Respiratory 16 16 16 Rate Respiratory Rate [Bilateral Throughout] Blood Pressure 123/55 123/55 123/55 O2 Sat by Pulse 100 100 100 Oximetry 04/25/21 04/25/21 04/25/21 07:10 07:20 07:30 Temperature Pulse Rate 66 66 67 Pulse Rate [ Bilateral Throughout] Pulse Rate [ From Monitor] Pulse Rate [ Right Dorsalis Pedis] Respiratory 16 14 19 Rate Respiratory Rate [Bilateral Throughout] Blood Pressure 124/55 124/55 124/55 O2 Sat by Pulse 100 100 94 Oximetry 04/25/21 04/25/21 04/25/21 07:40 07:50 08:00 Temperature 94 F L Pulse Rate 63 62 62 Pulse Rate [ Bilateral Throughout] Pulse Rate [ 62 From Monitor] Pulse Rate [ 62 Right Dorsalis Pedis] Respiratory 16 16 16 Rate Respiratory Rate [Bilateral Throughout] Blood Pressure 129/62 129/62 129/62 O2 Sat by Pulse 99 98 100 Oximetry 04/25/21 04/25/21 04/25/21 08:10 08:20 08:30 Temperature Pulse Rate 62 64 63 Pulse Rate [ Bilateral Throughout] Pulse Rate [ From Monitor] Pulse Rate [ Right Dorsalis Pedis] Respiratory 15 16 16 Rate Respiratory Rate [Bilateral Throughout] Blood Pressure 132/59 132/59 132/59 O2 Sat by Pulse 99 99 98 Oximetry 04/25/21 04/25/21 04/25/21 08:40 08:43 08:50 Temperature Pulse Rate 65 63 Pulse Rate [ 69 Bilateral Throughout] Pulse Rate [ From Monitor] Pulse Rate [ Right Dorsalis Pedis] Respiratory 16 16 Rate Respiratory 16 Rate [Bilateral Throughout] Blood Pressure 136/49 136/49 O2 Sat by Pulse 98 99 Oximetry 04/25/21 04/25/21 04/25/21 09:00 09:10 09:20 Temperature Pulse Rate 67 78 68 Pulse Rate [ Bilateral Throughout] Pulse Rate [ From Monitor] Pulse Rate [ Right Dorsalis Pedis] Respiratory 16 16 16 Rate Respiratory Rate [Bilateral Throughout] Blood Pressure 136/49 140/47 140/47 O2 Sat by Pulse 98 98 100 Oximetry 04/25/21 04/25/21 04/25/21 09:31 09:41 09:51 Temperature Pulse Rate 70 76 69 Pulse Rate [ Bilateral Throughout] Pulse Rate [ From Monitor] Pulse Rate [ Right Dorsalis Pedis] Respiratory 16 16 15 Rate Respiratory Rate [Bilateral Throughout] Blood Pressure 149/54 140/47 140/47 O2 Sat by Pulse 99 100 100 Oximetry 04/25/21 04/25/21 04/25/21 10:01 10:11 10:20 Temperature Pulse Rate 75 72 84 Pulse Rate [ Bilateral Throughout] Pulse Rate [ From Monitor] Pulse Rate [ Right Dorsalis Pedis] Respiratory 17 16 34 H Rate Respiratory Rate [Bilateral Throughout] Blood Pressure 165/70 165/70 151/78 O2 Sat by Pulse 94 100 98 Oximetry 04/25/21 04/25/21 04/25/21 10:21 10:30 10:41 Temperature Pulse Rate 78 84 85 Pulse Rate [ Bilateral Throughout] Pulse Rate [ From Monitor] Pulse Rate [ Right Dorsalis Pedis] Respiratory 16 34 H 36 H Rate Respiratory Rate [Bilateral Throughout] Blood Pressure 165/70 180/84 165/70 O2 Sat by Pulse 100 100 99 Oximetry 04/25/21 04/25/21 04/25/21 10:51 11:00 11:11 Temperature Pulse Rate 85 83 82 Pulse Rate [ Bilateral Throughout] Pulse Rate [ From Monitor] Pulse Rate [ Right Dorsalis Pedis] Respiratory 34 H 33 H 37 H Rate Respiratory Rate [Bilateral Throughout] Blood Pressure 165/70 151/78 151/78 O2 Sat by Pulse 98 98 97 Oximetry 04/25/21 04/25/21 04/25/21 11:21 11:30 11:41 Temperature Pulse Rate 79 78 79 Pulse Rate [ Bilateral Throughout] Pulse Rate [ From Monitor] Pulse Rate [ Right Dorsalis Pedis] Respiratory 34 H 34 H 34 H Rate Respiratory Rate [Bilateral Throughout] Blood Pressure 151/78 151/78 151/78 O2 Sat by Pulse 98 99 99 Oximetry 04/25/21 04/25/21 04/25/21 11:51 12:00 12:11 Temperature 97.9 F Pulse Rate 81 84 84 Pulse Rate [ Bilateral Throughout] Pulse Rate [ From Monitor] Pulse Rate [ Right Dorsalis Pedis] Respiratory 34 H 36 H 35 H Rate Respiratory Rate [Bilateral Throughout] Blood Pressure 151/78 162/77 158/77 O2 Sat by Pulse 99 99 99 Oximetry 04/25/21 04/25/21 04/25/21 12:21 12:30 12:41 Temperature Pulse Rate 83 85 86 Pulse Rate [ Bilateral Throughout] Pulse Rate [ From Monitor] Pulse Rate [ Right Dorsalis Pedis] Respiratory 36 H 36 H 35 H Rate Respiratory Rate [Bilateral Throughout] Blood Pressure 158/77 176/74 162/77 O2 Sat by Pulse 99 99 99 Oximetry 04/25/21 04/25/21 04/25/21 12:51 12:53 13:00 Temperature Pulse Rate 85 83 85 Pulse Rate [ Bilateral Throughout] Pulse Rate [ From Monitor] Pulse Rate [ Right Dorsalis Pedis] Respiratory 36 H 36 H 37 H Rate Respiratory Rate [Bilateral Throughout] Blood Pressure 162/77 176/74 166/78 O2 Sat by Pulse 99 99 99 Oximetry 04/25/21 04/25/21 04/25/21 13:11 13:16 13:21 Temperature Pulse Rate 87 88 89 Pulse Rate [ Bilateral Throughout] Pulse Rate [ From Monitor] Pulse Rate [ Right Dorsalis Pedis] Respiratory 36 H 36 H Rate Respiratory Rate [Bilateral Throughout] Blood Pressure 166/78 166/78 166/78 O2 Sat by Pulse 98 98 Oximetry 04/25/21 04/25/21 04/25/21 13:30 13:41 13:51 Temperature Pulse Rate 87 88 86 Pulse Rate [ Bilateral Throughout] Pulse Rate [ From Monitor] Pulse Rate [ Right Dorsalis Pedis] Respiratory 36 H 36 H 36 H Rate Respiratory Rate [Bilateral Throughout] Blood Pressure 161/73 161/73 161/73 O2 Sat by Pulse 98 98 98 Oximetry 04/25/21 04/25/21 04/25/21 14:00 14:11 14:21 Temperature Pulse Rate 88 88 88 Pulse Rate [ Bilateral Throughout] Pulse Rate [ From Monitor] Pulse Rate [ Right Dorsalis Pedis] Respiratory 37 H 35 H 37 H Rate Respiratory Rate [Bilateral Throughout] Blood Pressure 153/74 153/74 153/74 O2 Sat by Pulse 98 98 98 Oximetry 04/25/21 04/25/21 04/25/21 14:30 14:41 14:51 Temperature Pulse Rate 85 87 87 Pulse Rate [ Bilateral Throughout] Pulse Rate [ From Monitor] Pulse Rate [ Right Dorsalis Pedis] Respiratory 36 H 37 H 36 H Rate Respiratory Rate [Bilateral Throughout] Blood Pressure 159/70 159/70 159/70 O2 Sat by Pulse 98 99 99 Oximetry 04/25/21 04/25/21 04/25/21 15:00 15:11 15:21 Temperature Pulse Rate 82 89 82 Pulse Rate [ 82 Bilateral Throughout] Pulse Rate [ From Monitor] Pulse Rate [ Right Dorsalis Pedis] Respiratory 19 24 18 Rate Respiratory 12 Rate [Bilateral Throughout] Blood Pressure 163/69 163/69 163/69 O2 Sat by Pulse 99 100 99 Oximetry 04/25/21 04/25/21 04/25/21 15:30 15:41 15:50 Temperature Pulse Rate 82 82 81 Pulse Rate [ Bilateral Throughout] Pulse Rate [ From Monitor] Pulse Rate [ Right Dorsalis Pedis] Respiratory 18 17 Rate Respiratory Rate [Bilateral Throughout] Blood Pressure 160/72 160/72 160/72 O2 Sat by Pulse 100 100 100 Oximetry - General Appearance General appearance: well-developed, sedated on ventilator, intubated EENT: ATNC, PERRL, mucous membranes moist Neck: no JVD Respiratory: Present: Clear to Ascultation Cardiology: regular, S1S2 Gastrointestinal: normoactive bowel sounds Integumentary: no rash Neurologic: other (intubated, sedated ) - Lab 04/25/21 08:55 04/25/21 08:55 Most recent lab results ABG pH 7.462 (7.320-7.450) H 04/25/21 03:05 ABG O2 Saturation 95.9 (0-100) 04/25/21 03:05 Calcium 8.5 mg/dL (8.4-10.2) 04/25/21 08:55 Urine Creatinine 90.4 mg/dL (0.1-20.0) H 04/23/21 13:46 Urine Sodium 123 mmol/L 04/23/21 13:46 Urine Total Protein 103 mg/dL (5-11.8) H 04/23/21 13:46 Medications & Allergies - Medications Allergies/Adverse Reactions: Allergies hydrocodone Allergy (Unknown, Verified 05/29/19 17:35) Unknown HALLUCINATION acetaminophen [From Percocet] Allergy (Verified 12/22/20 15:37) Unknown HALLICUNATION Iodinated Contrast Media [Iodinated Contrast Media - IV Dye] Allergy (Verified 12/22/20 15:37) Itching oxycodone [From Percocet] Allergy (Verified 12/22/20 15:37) Unknown [facility] Medications: Home Medications Medication Instructions Recorded Confirmed Last Taken Type Aspirin [Aspirin BABY CHEW TAB] 81 mg PO QDAY #30 tab.chew 10/04/18 04/25/21 07/19/19 Rx Clopidogrel [Plavix] 75 mg PO QDAY #30 tablet 10/04/18 04/25/21 07/19/19 Rx amLODIPine 10 mg PO QDAY #30 tablet 10/04/18 04/25/21 07/19/19 Rx carvediloL [Coreg] 25 mg PO DAILY #30 tablet 10/04/18 04/25/21 07/19/19 Rx hydrALAZINE [Apresoline TAB] 25 mg PO TID #90 tablet 10/04/18 04/25/21 07/19/19 Rx ISOSORBIDE MONOnitrate [Imdur ER] 60 mg PO BID 05/28/19 04/25/21 07/19/19 History Potassium Chloride [K-Dur] 10 meq PO QDAY 05/28/19 04/25/21 07/19/19 History lisinopriL [Zestril TAB] 5 mg PO QDAY 05/28/19 04/25/21 07/19/19 History raNITIdine HCl [Zantac] 300 mg PO BID 05/28/19 04/25/21 07/19/19 History risperiDONE [RisperDAL] 0.5 mg PO BID 05/28/19 04/25/21 07/19/19 History AtorvaSTATin [Lipitor] 80 mg PO QHS tablet 05/30/19 04/25/21 07/19/19 Rx Nitroglycerin [Nitrostat] 0.4 mg SL .Q5MIN PRN #60 tab 12/08/19 04/25/21 Unknown Rx Ranolazine ER [Ranexa ER] 1,000 mg PO BID #60 tablet 12/08/19 04/25/21 Unknown Rx Temazepam 30 mg PO QHS #7 capsule 12/08/19 04/25/21 Unknown Rx Torsemide [Demadex] 40 mg PO BID #60 12/08/19 04/25/21 Unknown Rx Active Medications: Generic Name Dose Route Start Last Admin Trade Name Freq PRN Reason Stop Dose Admin Acetaminophen 650 mg 04/22/21 21:26 Acetaminophen 325 Mg Tab PO Q4H PRN Pain MILD(1-3)/Fever >100.5/GIORDANO Albuterol 2.5 mg 04/22/21 21:26 Albuterol 2.5 Mg/3 Ml Nebu IH Q3HRT PRN Shortness Of Breath Albuterol/Ipratropium 1 ampul 04/23/21 02:00 04/25/21 15:06 Ipratropium/Albuterol Sulfate 3 Ml Ampul.Neb IH 1 ampul Q6HRT [facility] Administration Amlodipine Besylate 10 mg 04/23/21 10:00 04/25/21 10:20 Amlodipine 10 Mg Tab PO 10 mg QDAY [facility] Administration Lipase/Protease/Amylase 1 each 04/23/21 09:33 Lipase 10,500/Protease 25,000/Amylase 43,750 (Units) Dr Machado FEEDTUBE PRN PRN For Clogged Feeding Tube Aspirin 325 mg 04/24/21 10:00 04/25/21 10:21 Aspirin 325 Mg Tab PO 325 mg QDAY [facility] Administration Atorvastatin Calcium 80 mg 04/22/21 22:00 04/24/21 21:50 Atorvastatin 40 Mg Tab PO 80 mg QHS [facility] Administration Carvedilol 25 mg 04/23/21 08:00 04/25/21 10:20 Carvedilol 25 Mg Tab PO 25 mg DAILY@0800 [facility] Administration Clopidogrel Bisulfate 75 mg 04/23/21 10:00 04/25/21 10:20 Clopidogrel 75 Mg Tab PO 75 mg QDAY [facility] Administration Dextrose 0 ml 04/22/21 21:26 Dextrose 50% In Water (25gm) 50 Ml Syringe IV Q30MIN PRN Hypoglycemia Protocol Famotidine 20 mg 04/25/21 10:00 04/25/21 10:20 Famotidine 20 Mg Tab PO 20 mg DAILY [facility] Administration Heparin Sodium (Porcine) 4,000 unit 04/22/21 21:39 Heparin 10,000 Units/10 Ml Vial 40 unit/kg (4000 unit) IV Q6H PRN Anti-Xa Assay < 0.1 units/ml Hydralazine HCl 10 mg 04/22/21 21:35 04/23/21 11:37 Hydralazine 20 Mg/1 Ml Inj IV 10 mg Q6H PRN Administration htn Hydralazine HCl 50 mg 04/24/21 09:00 04/25/21 13:16 Hydralazine 25 Mg Tab PO 50 mg Q8HR [facility] Administration Propofol 1,000 mg in 100 mls @ 3 mls/hr 04/22/21 19:00 04/24/21 19:06 Diprivan 10 Mg/Ml IV 0 mcg/kg/min TITR [facility] 0 mls/hr Titration Protocol 5 MCG/KG/MIN Heparin Sodium/Sodium Chloride 25,000 unit in 500 mls @ 20 mls/hr 04/22/21 22:00 04/25/21 00:40 Heparin/ 0.45% Nacl-25,000 Unit/500 Ml IV 1,000 units/hr TITRATE [facility] 20 mls/hr Administration Protocol 1,000 UNITS/HR Levetiracetam 750 mg/ Dextrose 107.5 mls @ 400 mls/hr 04/23/21 11:30 04/25/21 10:29 IV 400 mls/hr Q12HR [facility] Administration Insulin Human Lispro 0 unit 04/23/21 00:00 04/25/21 06:08 Insulin Lispro 100 Unit/Ml SUB-Q 2 unit Q6HR [facility] Administration Protocol Isosorbide Mononitrate 40 mg 04/24/21 09:00 04/25/21 13:16 Isosorbide Mononitrate 20 Mg Tab PO 40 mg Q8HR [facility] Administration Lorazepam 2 mg 04/22/21 22:52 04/23/21 03:22 Lorazepam 2 Mg/Ml Vial IV 2 mg Q4H PRN Administration Seizures Nitroglycerin 0.4 mg 04/22/21 21:26 Nitroglycerin 0.4 Mg Tab Subl SL .Q5MIN PRN Chest Pain Ondansetron HCl 4 mg 04/22/21 21:26 Ondansetron 4 Mg/2 Ml Inj IV Q8H PRN Nausea And Vomiting Ranolazine 1,000 mg 04/24/21 10:00 04/25/21 10:29 Ranolazine Er 500 Mg Tab 12hr PO 1,000 mg BID [facility] Administration Simple Syrup 15 ml 04/23/21 09:33 Simple Syrup 15 Ml FEEDTUBE PRN PRN Hypoglycemia Simple Syrup 30 ml 04/23/21 09:33 Simple Syrup 15 Ml FEEDTUBE PRN PRN Hypoglycemia Sodium Bicarbonate 325 mg 04/23/21 09:33 Sodium Bicarbonate 325 Mg Tab FEEDTUBE PRN PRN For Clogged Feeding Tube Sodium Chloride 10 ml 04/22/21 22:00 04/25/21 10:21 Sodium Chloride 0.9% 10 Ml Flush Syringe IV 10 ml BID [facility] Administration Sodium Chloride 10 ml 04/22/21 21:26 Sodium Chloride 0.9% 10 Ml Flush Syringe IV PRN PRN LINE FLUSH
--- NOTE | 2021-04-25 18:51 | Progress Note ---
Assessment and Plan Assessment and plan: This is a 65-year-old male with CAD s/p CABG x3, ischemic cardiomyopathy with ejection fraction of 40 to 45%, hypertension, hyperlipidemia, CVA and diabetes who was admitted s/p cardiac arrest, leukocytosis, lactic acidosis, elevated troponin, hypochloremia, metabolic acidosis, acute hypoxic respiratory failure S/p cardiac arrest (NSTEMI) Acute hypoxic respiratory failure Acute kidney injury secondary to vasomotor nephropathy Hyperkalemia ? Brain injury ? Myoclonic jerks/Seizures Lactic acidosis (down trending) Elevated D-dimer CAD s/p CABG x3 Ischemic cardiomyopathy with EF of 40 to 45% Hypertension Hyperlipidemia CVA Diabetes -CCM, neurology, nephrology, cardiology consulted, appreciate recommendations -COVID-19 PCR negative -IV Keppra -IV antibiotic -Precedex/fentanyl -04/23 renal ultrasound shows no evidence of medical renal disease or hydronephrosis -04/22 echocardiogram shows moderately dilated left ventricle, left ventricular function severely decreased with LVEF of 20 to 25%, borderline concentric left ventricle hypertrophy, mildly dilated left atrium, mild MR, mild AR, mild TR, mild pulmonary hypertension, RVSP is 46 mmHg -04/23 renal calculated at 1.5 suggestive of ATN or prerenal state -04/24 EEG shows is abnormal due to diffuse background slowing noted throughout the recording, excessive beta activity noted bifrontally most likely drug- related, suggestive of possible toxic metabolic encephalopathy, drug effect, possibility of postictal or post anoxic brain injury. -04/24 MRI brain findings consistent with diffuse anoxic injury, large chronic infarct in the right MCA distribution, chronic white matter changes which are nonspecific and consistent with chronic microvascular ischemic disease, no evidence of hemorrhage, mass, mass-effect. -04/24 MRI head shows no acute large vessel occlusion extra-axial fluid collection -Aspirin, Lipitor -Heparin drip -IV Keppra -Continue home amlodipine, aspirin, Lipitor, Coreg, Plavix, hydralazine, Imdur -S/p 2L NS bolus in ED -s/p IV hydration -Hold home torsemide, lisinopril -Tube feeding -Trend CBC, BMP DVT/GI prophylaxis: SCDs to bilateral lower extremities while in bed, systemic anticoagulation with heparin drip, PPI Disposition: ICU The high probability of a clinically significant, sudden or life threatening deterioration of the [multi] system(s) required my full and direct attention, intervention and personal management. The aggregate critical care time was [35] minutes. This time is in addition to time spent performing reported procedures but includes the following: [x] Data Review and interpretation [x] Patient assessment and monitoring of vital signs [x] Documentation [x] Medication orders and management History Interval history: This is a 65-year-old male with CAD s/p stents and CABG, DM, CVA, diastolic heart failure, HTN, hypercholesterolemia presented to the emergency department on 04/22 s/p cardiac arrest. Upon arrival of fire department patient was placed in the ED and shocked x2. Upon arrival of EMS patient was found to be in asystole and was given epinephrine x3, Narcan, sodium bicarb x1 and ROSC was achieved. Upon arrival to the emergency department patient again went to cardiac arrest and received 1 round of ACLS with epi nephron x1 and bicarb x1. Work-up in the emergency department revealed leukocytosis, lactic acidosis, elevated troponin, hypochloremia, metabolic acidosis. Patient was admitted to the hospital service with consults to nephrology, cardiology, neurology and [facility]. 04/23: We will hold MOLLY inhibitor and diuretics in setting of DELMI. EEG, MRI, MRV, renal ultrasound, echocardiogram pending Patient sedated with propofol. At the time my examination patient is on assist control tidal volume 450, rate of 26, PEEP of 6 and FiO2 of 30%. Nephrology was consulted given acute kidney injury and neurology. 04/24: Patient's leukocytosis has improved, he has slight hyperkalemia today but his kidney function has worsened to BUN 28/creatinine 2.2 from 14/12.6. Lactic acidosis has improved. Patient had his EEG today and is scheduled for MRI brain and MRA/MRV. This time my examination patient is on assist control tidal volume 450, rate 26, PEEP of 6 and 30% FiO2. Patient is Felicita calculated at 1.5 suggestive of ATN or PNA renal state. Renal ultrasound negative. He has hypokalemia today which will be repleted. 04/25: Patient's leukocytosis has resolved today, patient he is he has hyperchloremia which was repleted. Kidney function has improved. We will remove his Cruz catheter today. [facility] will obtain bilateral Doppler ultrasounds and magnesium. We will discontinue IV fluids. Hospitalist Physical - Constitutional Vitals: Temp Pulse Resp BP Pulse Ox 97.9 F 81 18 151/65 99 04/25/21 12:00 04/25/21 17:30 04/25/21 17:30 04/25/21 17:30 04/25/21 17:30 General appearance: Present: other (Intubated and sedated) - EENT Eyes: Present: PERRL ENT: poor dentition - Neck Neck: Present: normal ROM - Respiratory Respiratory effort: normal Respiratory: bilateral: CTA - Cardiovascular Rhythm: regular Heart Sounds: Present: S1 & S2. Absent: systolic murmur, diastolic murmur - Extremities Extremities: no ischemia, pulses intact, pulses symmetrical, No edema, normal temperature, normal color Peripheral Pulses: within normal limits - Abdominal General gastrointestinal: soft, non-tender, non-distended, normal bowel sounds - Integumentary Integumentary: Present: warm, dry - Psychiatric Psychiatric: other (sedated) - Neurologic Neurologic: no moves all extremities (weak gag, PERRL, no response to painful stimuli) - Allied Health Allied health notes reviewed: nursing, RT, social work HEART Score - HEART Score Troponin: Troponin T 1.020 ng/mL (0.00-0.029) H* D 04/23/21 02:36 Results - Labs CBC & Chem 7: 04/25/21 08:55 04/25/21 08:55 Labs: Laboratory Last Values WBC 8.2 K/mm3 (4.5-11.0) 04/25/21 08:55 RBC 3.32 M/mm3 (3.65-5.03) L 04/25/21 08:55 Hgb 10.8 gm/dl (11.8-15.2) L 04/25/21 08:55 Hct 32.5 % (35.5-45.6) L 04/25/21 08:55 MCV 98 fl (84-94) H 04/25/21 08:55 MCH 32 pg (28-32) 04/25/21 08:55 MCHC 33 % (32-34) 04/25/21 08:55 RDW 14.4 % (13.2-15.2) 04/25/21 08:55 Plt Count 116 K/mm3 (140-440) L 04/25/21 08:55 Lymph % (Auto) 3.6 % (13.4-35.0) L 04/23/21 02:36 Catron % (Auto) 6.7 % (0.0-7.3) 04/23/21 02:36 Eos % (Auto) 0.0 % (0.0-4.3) 04/23/21 02:36 Baso % (Auto) 0.3 % (0.0-1.8) 04/23/21 02:36 Lymph # (Auto) 0.5 K/mm3 (1.2-5.4) L 04/23/21 02:36 Catron # (Auto) 1.0 K/mm3 (0.0-0.8) H 04/23/21 02:36 Eos # (Auto) 0.0 K/mm3 (0.0-0.4) 04/23/21 02:36 Baso # (Auto) 0.0 K/mm3 (0.0-0.1) 04/23/21 02:36 Seg Neutrophils % 89.4 % (40.0-70.0) H 04/23/21 02:36 Seg Neutrophils # 13.0 K/mm3 (1.8-7.7) H 04/23/21 02:36 PT 14.9 Sec. (12.2-14.9) 04/22/21 18:12 INR 1.17 (0.87-1.13) H 04/22/21 18:12 APTT 36.5 Sec. (24.2-36.6) 04/22/21 18:12 D-Dimer 8003.00 ng/mlDDU (0-234) H 04/23/21 08:58 Heparin Anti-Xa Level 0.46 U.I./ml (0.3-0.7) 04/25/21 08:55 ABG pH 7.462 (7.320-7.450) H 04/25/21 03:05 POC ABG pCO2 40.5 mmHg (32.0-48.0) 04/25/21 03:05 POC ABG pO2 80.2 mmHg (83-108) L 04/25/21 03:05 POC ABG HCO3 28.3 04/25/21 03:05 ABG O2 Saturation 95.9 (0-100) 04/25/21 03:05 POC ABG Base Excess 4.2 04/25/21 03:05 ABG Hemoglobin 11.0 (12.0-17.5) L 04/25/21 03:05 ABG Oxyhemoglobin 94.9 (94-98) 04/25/21 03:05 ABG Methemoglobin 0.3 (0.0-1.5) 04/25/21 03:05 ABG Sodium 136.3 mmol/L (136.0-145.0) 04/25/21 03:05 ABG Potassium 3.3 mmol/L (3.40-4.50) L 04/25/21 03:05 ABG Chloride 104.0 mmol/L (98-107) 04/25/21 03:05 ABG Glucose 137 mg/dL (65-95) H 04/25/21 03:05 Carboxyhemoglobin 0.7 (0.5-1.5) 04/25/21 03:05 FiO2 % 30.0 04/25/21 03:05 Sodium 141 mmol/L (137-145) 04/25/21 08:55 Potassium 3.4 mmol/L (3.6-5.0) L 04/25/21 08:55 Chloride 104.2 mmol/L (98-107) 04/25/21 08:55 Carbon Dioxide 30 mmol/L (22-30) 04/25/21 08:55 Anion Gap 10 mmol/L 04/25/21 08:55 BUN 34 mg/dL (9-20) H 04/25/21 08:55 Creatinine 1.9 mg/dL (0.8-1.3) H 04/25/21 08:55 Estimated GFR 43 ml/min 04/25/21 08:55 BUN/Creatinine Ratio 18 % 04/25/21 08:55 Glucose 123 mg/dL (75-100) H 04/25/21 08:55 POC Glucose 142 mg/dL (70-105) H 04/25/21 11:55 Lactic Acid 1.40 mmol/L (0.7-2.0) 04/24/21 07:03 Calcium 8.5 mg/dL (8.4-10.2) 04/25/21 08:55 Ferritin 185.5 ng/mL (30.0-300.0) 04/23/21 08:58 Lactate Dehydrogenase 546 units/L (91-180) H 04/23/21 08:58 Troponin T 1.020 ng/mL (0.00-0.029) H* D 04/23/21 02:36 C-Reactive Protein 2.20 mg/dL (0.00-1.30) H 04/23/21 08:58 NT-Pro-B Natriuret Pep 2448 pg/mL (0-900) H 04/22/21 18:12 Triglycerides 107 mg/dL (2-149) 04/22/21 18:12 Cholesterol 136 mg/dL (50-199) 04/22/21 18:12 LDL Cholesterol Direct 78 mg/dL (50-130) 04/22/21 18:12 HDL Cholesterol 58 mg/dL (40-59) 04/22/21 18:12 Cholesterol/HDL Ratio 2.34 % 04/22/21 18:12 Procalcitonin 3.46 ng/mL (<0.15) 04/23/21 08:58 Arterial Blood Glucose 137 mg/dL (65-95) H 04/25/21 03:05 Arterial Blood Ionized Calcium 4.5 mg/dL (4.6-5.3) L 04/25/21 03:05 Urine Creatinine 90.4 mg/dL (0.1-20.0) H 04/23/21 13:46 Urine Sodium 123 mmol/L 04/23/21 13:46 Urine Total Protein 103 mg/dL (5-11.8) H 04/23/21 13:46 Coronavirus (PCR) Negative (Negative) 04/23/21 Unknown Microbiology: Microbiology 04/22/21 18:25 Peripheral/Venous Blood Culture - Preliminary NO GROWTH AFTER 72 HOURS 04/22/21 18:12 Peripheral/Venous Blood Culture - Preliminary NO GROWTH AFTER 72 HOURS Cruz/IV: Voiding Method Indwelling Catheter Active Medications - Current Medications Current Medications: Generic Name Dose Route Start Last Admin Trade Name Freq PRN Reason Stop Dose Admin Acetaminophen 650 mg 04/22/21 21:26 Acetaminophen 325 Mg Tab PO Q4H PRN Pain MILD(1-3)/Fever >100.5/GIORDANO Albuterol 2.5 mg 04/22/21 21:26 Albuterol 2.5 Mg/3 Ml Nebu IH Q3HRT PRN Shortness Of Breath Albuterol/Ipratropium 1 ampul 04/23/21 02:00 04/25/21 15:06 Ipratropium/Albuterol Sulfate 3 Ml Ampul.Neb IH 1 ampul Q6HRT SHELTON Administration Amlodipine Besylate 10 mg 04/23/21 10:00 04/25/21 10:20 Amlodipine 10 Mg Tab PO 10 mg QDAY SHELTON Administration Lipase/Protease/Amylase 1 each 04/23/21 09:33 Lipase 10,500/Protease 25,000/Amylase 43,750 (Units) Dr Machado FEEDTUBE PRN PRN For Clogged Feeding Tube Aspirin 325 mg 04/24/21 10:00 04/25/21 10:21 Aspirin 325 Mg Tab PO 325 mg QDAY SHELTON Administration Atorvastatin Calcium 80 mg 04/22/21 22:00 04/24/21 21:50 Atorvastatin 40 Mg Tab PO 80 mg QHS SHELTON Administration Carvedilol 25 mg 04/23/21 08:00 04/25/21 10:20 Carvedilol 25 Mg Tab PO 25 mg DAILY@0800 SHELTON Administration Clopidogrel Bisulfate 75 mg 04/23/21 10:00 04/25/21 10:20 Clopidogrel 75 Mg Tab PO 75 mg QDAY SHELTON Administration Dextrose 0 ml 04/22/21 21:26 Dextrose 50% In Water (25gm) 50 Ml Syringe IV Q30MIN PRN Hypoglycemia Protocol Famotidine 20 mg 04/25/21 10:00 04/25/21 10:20 Famotidine 20 Mg Tab PO 20 mg DAILY SHELTON Administration Heparin Sodium (Porcine) 4,000 unit 04/22/21 21:39 Heparin 10,000 Units/10 Ml Vial 40 unit/kg (4000 unit) IV Q6H PRN Anti-Xa Assay < 0.1 units/ml Hydralazine HCl 10 mg 04/22/21 21:35 04/23/21 11:37 Hydralazine 20 Mg/1 Ml Inj IV 10 mg Q6H PRN Administration htn Hydralazine HCl 50 mg 04/24/21 09:00 04/25/21 13:16 Hydralazine 25 Mg Tab PO 50 mg Q8HR SHELTON Administration Propofol 1,000 mg in 100 mls @ 3 mls/hr 04/22/21 19:00 04/24/21 19:06 Diprivan 10 Mg/Ml IV 0 mcg/kg/min TITR SHELTON 0 mls/hr Titration Protocol 5 MCG/KG/MIN Heparin Sodium/Sodium Chloride 25,000 unit in 500 mls @ 20 mls/hr 04/22/21 22:00 04/25/21 00:40 Heparin/ 0.45% Nacl-25,000 Unit/500 Ml IV 1,000 units/hr TITRATE SHELTON 20 mls/hr Administration Protocol 1,000 UNITS/HR Levetiracetam 750 mg/ Dextrose 107.5 mls @ 400 mls/hr 04/23/21 11:30 04/25/21 11:45 IV Infused Q12HR SHELTON Infusion Insulin Human Lispro 0 unit 04/23/21 00:00 04/25/21 18:00 Insulin Lispro 100 Unit/Ml SUB-Q Not Given Q6HR [facility] Protocol Isosorbide Mononitrate 40 mg 04/24/21 09:00 04/25/21 13:16 Isosorbide Mononitrate 20 Mg Tab PO 40 mg Q8HR SHELTON Administration Lorazepam 2 mg 04/22/21 22:52 04/23/21 03:22 Lorazepam 2 Mg/Ml Vial IV 2 mg Q4H PRN Administration Seizures Nitroglycerin 0.4 mg 04/22/21 21:26 Nitroglycerin 0.4 Mg Tab Subl SL .Q5MIN PRN Chest Pain Ondansetron HCl 4 mg 04/22/21 21:26 Ondansetron 4 Mg/2 Ml Inj IV Q8H PRN Nausea And Vomiting Ranolazine 1,000 mg 04/24/21 10:00 04/25/21 10:29 Ranolazine Er 500 Mg Tab 12hr PO 1,000 mg BID SHELTON Administration Simple Syrup 15 ml 04/23/21 09:33 Simple Syrup 15 Ml FEEDTUBE PRN PRN Hypoglycemia Simple Syrup 30 ml 04/23/21 09:33 Simple Syrup 15 Ml FEEDTUBE PRN PRN Hypoglycemia Sodium Bicarbonate 325 mg 04/23/21 09:33 Sodium Bicarbonate 325 Mg Tab FEEDTUBE PRN PRN For Clogged Feeding Tube Sodium Chloride 10 ml 04/22/21 22:00 04/25/21 10:21 Sodium Chloride 0.9% 10 Ml Flush Syringe IV 10 ml BID SHELTON Administration Sodium Chloride 10 ml 04/22/21 21:26 Sodium Chloride 0.9% 10 Ml Flush Syringe IV PRN PRN LINE FLUSH Nutrition/Malnutrition Assess - Dietary Evaluation Nutrition/Malnutrition Findings: Nutrition Notes Start: 04/23/21 08:22 Freq: Status: Active Protocol: Document 04/25/21 11:25 (Rec: 04/25/21 11:29 [email or web address]) Nutrition Notes Initial or Follow up Reassessment Current Diagnosis Diabetes,Hypertension,Heart Failure,Stroke Other Pertinent Diagnosis Cardiac arrest, AMI Current Diet Vital AF 1.2 at 65 ml/hr Labs/Tests K 3.4 BUN 34 Cr 1.9 Pertinent Medications Reviewed Height 6 ft Weight 106.7 kg [place] Body Weight (kg) 80.90 BMI 31.8 Weight Status Obese Subjective/Other Information FU for TF start. Per RN, pt tolerating at 55 ml/hr and will increase per orders. Percent of energy/protein needs met: 100%/73% Burn Absent Trauma Absent GI Symptoms None Current % PO Negligible Minimum of two criteria No physical signs of malnutrition #1 Nutrition Diagnosis Inadequate oral intake Diagnosis Progress(for reassessment Continues documentation) Is patient on ventilator? Yes Is Patient Ambulatory and/or Out of Bed No REE-([facility]-confined to bed) 2272.956 Kcal/Kg value to use for calculation 18 Approximate Energy Requirements Using 1921 kcal/Kg Calculation Used for Recommendations Kcal/kg Additional Notes Protein needs are >161g (>2g IBW) Fluid needs are 1ml/kcal Nutrition Intervention Change Diet Order: Continue Nutrition Support: Vital 1.2 at 65ml/h Flush with 100ml q4h Kcal 1,872 Protein (gm) 117 Fluid (mL) 1,260 Goal #1 Meet at least 70% of kcal and protein needs via TF Anticipated Discharge Needs: Unable to determine at this time Follow-Up By: 04/27/21 Additional Comments FU for TF tolerance
[2021-04-26] MEDS: INSULIN LISPRO 100 UNIT/ML SUB-Q SCH ×4 (00:25→18:27)
[2021-04-26] MEDS: HEPARIN/ 0.45% NACL DRIP 25,000 UNIT/500 ML BAG IV SCH (01:26)
[2021-04-26] MEDS: IPRATROPIUM/ALBUTEROL SULFATE 3 ML AMPUL.NEB IH SCH ×4 (02:00→19:23)
[2021-04-26] MEDS: hydrALAZINE 20 MG/1 ML INJ IV PRN (02:22)
[2021-04-26 05:30] LABS: Hematocrit 32.6 % (35.5-45.6); Hemoglobin 11.1 gm/dl (11.8-15.2); Mean Corpuscular HGB Conc 34 % (32-34); Mean Corpuscular Volume 97 fl (84-94); Platelet Count 163 K/mm3 (140-440); Red Blood Count 3.37 M/mm3 (3.65-5.03); Red Cell Distribution Width 14.7 % (13.2-15.2)
[2021-04-26 05:45] LABS: Hemolysis Index 230
[2021-04-26] MEDS: hydrALAZINE 25 MG TAB PO SCH ×3 (05:49→22:16)
[2021-04-26] MEDS: LORazepam 2 MG/ML VIAL IV PRN (05:53)
[2021-04-26 05:58] LABS: BUN/Creatinine Ratio TNR; Blood Urea Nitrogen TNR mg/dL (9-20)
[2021-04-26 05:59] LABS: Calcium TNR mg/dL (8.4-10.2)
[2021-04-26 09:20] LABS: Calcium 8.7 mg/dL (8.4-10.2)
[2021-04-26] MEDS: amLODIPine 10 MG TAB PO SCH (09:21)
[2021-04-26] MEDS: CLOPIDOGREL 75 MG TAB PO SCH (09:21)
[2021-04-26] MEDS: FAMOTIDINE 20 MG TAB PO SCH (09:21)
[2021-04-26] MEDS: ASPIRIN 325 MG TAB PO SCH (09:21)
[2021-04-26] MEDS: levETIRAcetam 750 MG in DEXTROSE 5% IN WATER 100 ML IV SCH ×2 (09:22→22:14)
[2021-04-26] MEDS: carvediloL 25 MG TAB PO SCH (09:23)
--- NOTE | 2021-04-26 09:51 | Progress Note ---
<MALLORY CHAVEZ - Last Filed: 04/26/21 09:49> Assessment and Plan Out of the hospital cardiopulmonary arrest possible anoxic encephalopathy MRI brain suggestive for diffuse brain anoxic injury with chronic R.MCA infarct History of complex inoperable three-vessel coronary artery disease followed by Dr. Herzog at [facility] History of ischemic cardiomyopathy echocardiogram shows an ejection fraction of 20 to 25%, with moderate mitral regurgitation. Continue supportive management and guideline directed medical therapy as tolerated. Subjective Date of service: 04/26/21 Principal diagnosis: Cardiac; DELMI; Ac hypoxemic resp failure; Ac Encephalopathy; HFrEF; DM II Interval history: Patient is unresponsive on the ventilator. Objective Vital Signs Temp Pulse Pulse Pulse Pulse Resp Resp 04/26/21 09:23 85 04/26/21 09:21 95 H 04/26/21 08:00 99.1 F 86 89 21 04/26/21 07:58 95 H 04/26/21 07:51 86 16 04/26/21 07:41 86 22 04/26/21 07:30 87 21 04/26/21 07:21 88 20 04/26/21 07:13 88 18 04/26/21 07:11 88 22 04/26/21 07:00 89 23 04/26/21 06:51 89 23 04/26/21 06:41 88 20 04/26/21 06:30 95 H 22 04/26/21 06:21 90 17 04/26/21 06:11 89 19 04/26/21 06:01 91 H 19 04/26/21 05:51 92 H 21 04/26/21 05:49 92 H 04/26/21 05:41 94 H 22 04/26/21 05:30 93 H 19 04/26/21 05:21 93 H 23 04/26/21 05:11 94 H 25 H 04/26/21 05:00 96 H 25 H 04/26/21 04:54 97 H 04/26/21 04:51 93 H 30 H 04/26/21 04:41 96 H 30 H 04/26/21 04:30 95 H 27 H 04/26/21 04:21 94 H 28 H 04/26/21 04:11 93 H 29 H 04/26/21 04:00 99.2 F 93 H 88 88 29 H 04/26/21 03:51 92 H 29 H 04/26/21 03:41 93 H 29 H 04/26/21 03:30 92 H 30 H 04/26/21 03:21 92 H 31 H 04/26/21 03:11 90 31 H 04/26/21 03:00 90 30 H 04/26/21 02:51 89 30 H 04/26/21 02:41 89 30 H 04/26/21 02:30 88 29 H 04/26/21 02:22 86 04/26/21 02:21 85 26 H 04/26/21 02:11 86 28 H 04/26/21 02:00 84 86 28 H 26 H 04/26/21 01:51 84 24 04/26/21 01:41 82 27 H 04/26/21 01:30 82 26 H 04/26/21 01:21 82 28 H 04/26/21 01:11 83 27 H 04/26/21 01:00 86 20 04/26/21 00:51 77 27 H 04/26/21 00:41 82 27 H 04/26/21 00:30 82 27 H 04/26/21 00:21 83 28 H 04/26/21 00:12 84 04/26/21 00:11 83 25 H 04/26/21 00:00 93.3 F L 82 82 82 16 04/25/21 23:51 82 25 H 04/25/21 23:41 82 27 H 04/25/21 23:30 82 27 H 04/25/21 23:21 82 27 H 04/25/21 23:11 82 26 H 04/25/21 23:00 82 28 H 04/25/21 22:51 80 27 H 04/25/21 22:41 82 24 04/25/21 22:30 81 27 H 04/25/21 22:21 82 27 H 04/25/21 22:11 81 23 04/25/21 22:10 80 04/25/21 22:00 80 24 04/25/21 21:53 79 25 H 04/25/21 21:51 82 16 04/25/21 21:41 84 16 04/25/21 21:34 83 02 21:30 84 18 04/25/21 21:21 82 17 04/25/21 21:11 84 15 04/25/21 21:00 87 18 06/02/21 20:51 88 20 04/25/21 20:41 83 17 04/25/21 20:30 83 17 04/25/21 20:21 82 18 04/25/21 20:11 80 19 04/25/21 20:00 99.2 F 82 82 82 17 04/25/21 19:51 82 17 04/25/21 19:41 83 18 04/25/21 19:30 86 17 04/25/21 19:21 83 16 04/25/21 19:11 82 17 04/25/21 19:00 90 17 04/25/21 18:55 81 16 04/25/21 18:51 82 17 04/25/21 18:41 82 17 04/25/21 18:30 80 18 04/25/21 18:21 79 17 04/25/21 18:11 85 16 04/25/21 18:00 81 17 04/25/21 17:51 82 17 04/25/21 17:41 82 16 04/25/21 17:30 81 18 04/25/21 17:21 83 18 04/25/21 17:11 82 16 04/25/21 17:00 82 16 04/25/21 16:51 82 18 04/25/21 16:40 82 17 04/25/21 16:30 82 17 04/25/21 16:21 84 17 04/25/21 16:11 82 18 04/25/21 16:00 98.2 F 80 82 82 17 04/25/21 15:51 82 17 04/25/21 15:50 81 04/25/21 15:41 82 17 04/25/21 15:30 82 18 04/25/21 15:21 82 18 04/25/21 15:11 89 82 24 12 04/25/21 15:00 82 19 04/25/21 14:51 87 36 H 04/25/21 14:41 87 37 H 04/25/21 14:30 85 36 H 04/25/21 14:21 88 37 H 04/25/21 14:11 88 35 H 04/25/21 14:00 88 37 H 04/25/21 13:51 86 36 H 04/25/21 13:41 88 36 H 04/25/21 13:30 87 36 H 04/25/21 13:21 89 36 H 04/25/21 13:16 88 04/25/21 13:11 87 36 H 04/25/21 13:00 85 37 H 04/25/21 12:53 83 36 H 04/25/21 12:51 85 36 H 04/25/21 12:41 86 35 H 04/25/21 12:30 85 36 H 04/25/21 12:21 83 36 H 04/25/21 12:11 84 35 H 04/25/21 12:00 97.9 F 83 83 83 37 H 04/25/21 11:51 81 34 H 04/25/21 11:41 79 34 H 04/25/21 11:30 78 34 H 04/25/21 11:21 79 34 H 04/25/21 11:11 82 37 H 04/25/21 11:00 83 33 H 04/25/21 10:51 85 34 H 04/25/21 10:41 85 36 H 04/25/21 10:30 84 34 H 04/25/21 10:21 78 16 04/25/21 10:20 84 34 H 04/25/21 10:11 72 16 04/25/21 10:01 75 17 04/25/21 09:51 69 15 BP Pulse Ox 04/26/21 09:23 143/61 04/26/21 09:21 143/61 04/26/21 08:00 157/67 99 04/26/21 07:58 161/67 99 04/26/21 07:51 144/66 100 04/26/21 07:41 144/66 98 04/26/21 07:30 144/66 98 04/26/21 07:21 154/66 99 04/26/21 07:13 04/26/21 07:11 154/66 95 04/26/21 07:00 154/66 95 04/26/21 06:51 161/67 95 04/26/21 06:41 161/67 98 04/26/21 06:30 161/67 99 04/26/21 06:21 183/69 99 04/26/21 06:11 183/69 98 03 06:01 169/68 98 04/26/21 05:51 183/69 98 04/26/21 05:49 183/69 04/26/21 05:41 183/69 97 04/26/21 05:30 183/69 99 04/26/21 05:21 166/80 98 06 05:11 166/80 98 04/26/21 05:00 189/83 100 04/26/21 04:54 189/83 100 04/26/21 04:51 173/75 99 04/26/21 04:41 173/75 99 04/26/21 04:30 166/80 99 04/26/21 04:21 170/78 99 04/26/21 04:11 170/78 99 04/26/21 04:00 173/75 99 04/26/21 03:51 170/78 99 04/26/21 03:41 170/78 99 04/26/21 03:30 170/78 99 04/26/21 03:21 151/65 98 04/26/21 03:11 151/65 98 04/26/21 03:00 171/72 98 04/26/21 02:51 172/76 98 04/26/21 02:41 172/76 97 04/26/21 02:30 151/65 97 04/26/21 02:22 172/76 06 02:21 172/76 98 04/26/21 02:11 172/76 93 04/26/21 02:00 172/76 99 04/26/21 01:51 154/68 98 04/26/21 01:41 154/68 99 04/26/21 01:30 154/68 99 04/26/21 01:21 161/66 98 04/26/21 01:11 161/66 99 04/26/21 01:00 161/66 98 04/26/21 00:51 150/61 97 04/26/21 00:41 150/61 97 04/26/21 00:30 150/61 98 06 00:21 151/64 98 04/26/21 00:12 151/64 98 04/26/21 00:11 151/64 99 04/26/21 00:00 151/64 99 04/25/21 23:51 142/61 99 04/25/21 23:41 142/61 99 04/25/21 23:30 142/61 99 04/25/21 23:21 152/65 98 04/25/21 23:11 152/65 98 04/25/21 23:00 152/65 100 04/25/21 22:51 160/71 99 04/25/21 22:41 160/71 98 04/25/21 22:30 160/71 99 04/25/21 22:21 173/71 99 04/25/21 22:11 173/71 100 04/25/21 22:10 173/71 04/25/21 22:00 173/71 100 04/25/21 21:53 06 21:51 171/71 100 04/25/21 21:41 171/71 100 04/25/21 21:34 171/71 100 04/25/21 21:30 171/71 100 04/25/21 21:21 171/74 100 04/25/21 21:11 171/74 100 04/25/21 21:00 171/74 100 04/25/21 20:51 166/74 100 04/25/21 20:41 166/74 100 04/25/21 20:30 166/74 100 04/25/21 20:21 169/72 100 04/25/21 20:11 169/72 100 04/25/21 20:00 169/72 100 04/25/21 19:51 168/72 100 04/25/21 19:41 168/72 100 04/25/21 19:30 168/72 100 04/25/21 19:21 172/77 100 04/25/21 19:11 172/77 100 04/25/21 19:00 172/77 100 04/25/21 18:55 161/72 100 04/25/21 18:51 161/72 100 04/25/21 18:41 161/72 100 04/25/21 18:30 161/72 100 04/25/21 18:21 151/65 100 04/25/21 18:11 157/68 100 04/25/21 18:00 157/68 100 04/25/21 17:51 151/65 100 04/25/21 17:41 151/65 100 04/25/21 17:30 151/65 99 04/25/21 17:21 158/73 100 04/25/21 17:11 162/71 100 04/25/21 17:00 162/71 100 04/25/21 16:51 158/73 100 06/01/14 16:40 158/73 100 04/25/21 16:30 158/73 100 06/02 16:21 163/71 100 04/25/21 16:11 163/71 100 06 16:00 160/72 100 04/25/21 15:51 160/72 100 06 15:50 160/72 100 06 15:41 160/72 100 04/25/21 15:30 160/72 100 06 15:21 163/69 99 04/25/21 15:11 163/69 100 04/25/21 15:00 163/69 99 06 14:51 159/70 99 04/25/21 14:41 159/70 99 04/25/21 14:30 159/70 98 04/25/21 14:21 153/74 98 04/25/21 14:11 153/74 98 06 14:00 153/74 98 04/25/21 13:51 161/73 98 06 13:41 161/73 98 04/25/21 13:30 161/73 98 04/25/21 13:21 166/78 98 04/25/21 13:16 166/78 04/25/21 13:11 166/78 98 06 13:00 166/78 99 04/25/21 12:53 176/74 99 04/25/21 12:51 162/77 99 04/25/21 12:41 162/77 99 04/25/21 12:30 176/74 99 04/25/21 12:21 158/77 99 04/25/21 12:11 158/77 99 04/25/21 12:00 162/77 99 04/25/21 11:51 151/78 99 0602 11:41 151/78 99 04/25/21 11:30 151/78 99 06 11:21 151/78 98 04/25/21 11:11 151/78 97 04/25/21 11:00 151/78 98 04/25/21 10:51 165/70 98 06 10:41 165/70 99 04/25/21 10:30 180/84 100 04/25/21 10:21 165/70 100 04/25/21 10:20 151/78 98 04/25/21 10:11 165/70 100 04/25/21 10:01 165/70 94 04/25/21 09:51 140/47 100 - Physical Examination General: Other (Unresponsive, on the vent) HEENT: Positive: Other (Pupils fixed) Cardiac: Positive: Reg Rate and Rhythm Neuro: Positive: Other (Unresponsive, on the vent) - Labs and Meds CBC 04/26/21 Range/Units 04:49 WBC 9.0 (4.5-11.0) K/mm3 RBC 3.37 L (3.65-5.03) M/mm3 Hgb 11.1 L (11.8-15.2) gm/dl Hct 32.6 L (35.5-45.6) % Plt Count 163 (140-440) K/mm3 Comprehensive Metabolic Panel 04/26/21 04/26/21 Range/Units 04:49 08:54 Sodium TNR 137 Potassium TNR 4.1 D Chloride TNR 100.0 Carbon Dioxide TNR 27 BUN TNR 36 H Creatinine TNR 1.7 H Glucose TNR 132 H Calcium TNR 8.7 - Allied health notes Allied health notes reviewed: nursing <MICHELLE WILCOX - Last Filed: 05/01/21 17:06> Assessment and Plan - Patient Problems (1) Acute respiratory failure Status: Acute (2) Cardiac arrest Status: Acute (3) Encephalopathy Status: Acute (4) Hypertensive emergency Status: Acute Subjective Interval history: I SAW THIS PT & AGREE WITH THE Dx & Tx PLAN.
--- NOTE | 2021-04-26 10:52 | Progress Note ---
Assessment and Plan Assessment and Plan VTE prophylaxis?: Chemical Plan of care discussed with patient/family: Yes - Patient Problems # Cardiac arrest with possible anoxic brain injury -status post cardiac arrest at home with length of time in [place] is unknown -Elevated cardiac enzymes -Admit the patient to the ICU. - Patient is status post intubation. - Aspirin 325 mg p.o. daily. - Lipitor 80 mg p.o. daily. - Heparin drip as per protocol. - Continue the home cardiac medication. - echocardiogram showed EF#20-25% -So far no change in status day4 he is off sedation with chance of recovery is slim # Possible myoclonic jerks --s/p cardiac arrest with resucitation -- significant brain injury -EEG is remarkable for mild slowing 4-5 Hz with no sign of seizure is noted -Keppra 750 mg Iv BID - MRI brain is remarkable for diffuse brain anoxic injury with remote R.MCA infarct # History of CVA (cerebrovascular accident) Aspirin 325 mg p.o. daily. Lipitor 80 mg p.o. daily. We will continue home medication On heparin drip CT brain is suggestive of multiple emboli ?not noted on MRI # HTN (hypertension), benign Hydralazine 25 mg p.o. 3 times daily. # Hx of CABG Stable. We will continue the home cardiac medication. echocardiogram is noted #Hyperlipidemia Lipitor 80 mg p.o. daily. We will recheck the lipid panel,LDL#78 # Diabetes - sliding scale -A1C # Lactic acidosis -Patient got 2 to 3 L of fluid bolus in the emergency room. treat underlying infection # CHF (congestive heart failure) Stable We will continue the home medication. We also do echocardiogram. #DVT prophylaxis Heparin drip as per protocol for DVT prophylaxis. Pepcid 20 mg IV. twice daily for GI prophylaxis. Patient is a full code PLAN 1- Off sedation for 4 days 2- keppra 750 mg IV bid 3- Brain MRI is suggestive of anoxic brain injury 5-EEG mild diffuse slowinh in 4-5 HZ . 6-Echo cardiogram noted worsening cardiac function--EF#20-25% 7- serial cardiac enzymes and heparine will sign off see no chance of recovery D/W PCP Subjective Date of service: 04/26/21 Principal diagnosis: Cardiac; DELMI; Ac hypoxemic resp failure; Ac Encephalopathy; HFrEF; DM II Interval history: pt. is unresponsive vital stable , he is on heparine drip and off fentanyl day #4 , HTN No noted myoclonus or seizure no seizure EEG is remarkable for diffuse slowing 4-5 HZ , no sign of seizure is noted maintain Keppra 750 mg bid Creat.#1.9 Brain MRI is remarkable for remote right MCA infarct and noted acute anoxic brain injury , no sign of increase ICP or herniation No sign of improvment Objective - Vital Sign Vital Signs - 12hr 04/25/21 04/25/21 04/25/21 22:51 23:00 23:11 Temperature Pulse Rate 80 82 82 Pulse Rate [ Bilateral Throughout] Pulse Rate [ From Monitor] Pulse Rate [ Right Dorsalis Pedis] Respiratory 27 H 28 H 26 H Rate Respiratory Rate [Bilateral Throughout] Blood Pressure 160/71 152/65 152/65 O2 Sat by Pulse 99 100 98 Oximetry 04/25/21 04/25/21 04/25/21 23:21 23:30 23:41 Temperature Pulse Rate 82 82 82 Pulse Rate [ Bilateral Throughout] Pulse Rate [ From Monitor] Pulse Rate [ Right Dorsalis Pedis] Respiratory 27 H 27 H 27 H Rate Respiratory Rate [Bilateral Throughout] Blood Pressure 152/65 142/61 142/61 O2 Sat by Pulse 98 99 99 Oximetry 04/25/21 04/26/21 04/26/21 23:51 00:00 00:11 Temperature 93.3 F L Pulse Rate 82 82 83 Pulse Rate [ Bilateral Throughout] Pulse Rate [ 82 From Monitor] Pulse Rate [ 82 Right Dorsalis Pedis] Respiratory 25 H 16 25 H Rate Respiratory Rate [Bilateral Throughout] Blood Pressure 142/61 151/64 151/64 O2 Sat by Pulse 99 99 99 Oximetry 04/26/21 04/26/21 04/26/21 00:12 00:21 00:30 Temperature Pulse Rate 84 83 82 Pulse Rate [ Bilateral Throughout] Pulse Rate [ From Monitor] Pulse Rate [ Right Dorsalis Pedis] Respiratory 28 H 27 H Rate Respiratory Rate [Bilateral Throughout] Blood Pressure 151/64 151/64 150/61 O2 Sat by Pulse 98 98 98 Oximetry 04/26/21 04/26/21 04/26/21 00:41 00:51 01:00 Temperature Pulse Rate 82 77 86 Pulse Rate [ Bilateral Throughout] Pulse Rate [ From Monitor] Pulse Rate [ Right Dorsalis Pedis] Respiratory 27 H 27 H 20 Rate Respiratory Rate [Bilateral Throughout] Blood Pressure 150/61 150/61 161/66 O2 Sat by Pulse 97 97 98 Oximetry 04/26/21 04/26/21 04/26/21 01:11 01:21 01:30 Temperature Pulse Rate 83 82 82 Pulse Rate [ Bilateral Throughout] Pulse Rate [ From Monitor] Pulse Rate [ Right Dorsalis Pedis] Respiratory 27 H 28 H 26 H Rate Respiratory Rate [Bilateral Throughout] Blood Pressure 161/66 161/66 154/68 O2 Sat by Pulse 99 98 99 Oximetry 04/26/21 04/26/21 04/26/21 01:41 01:51 02:00 Temperature Pulse Rate 82 84 84 Pulse Rate [ 86 Bilateral Throughout] Pulse Rate [ From Monitor] Pulse Rate [ Right Dorsalis Pedis] Respiratory 27 H 24 28 H Rate Respiratory 26 H Rate [Bilateral Throughout] Blood Pressure 154/68 154/68 172/76 O2 Sat by Pulse 99 98 99 Oximetry 04/26/21 04/26/21 04/26/21 02:11 02:21 02:22 Temperature Pulse Rate 86 85 86 Pulse Rate [ Bilateral Throughout] Pulse Rate [ From Monitor] Pulse Rate [ Right Dorsalis Pedis] Respiratory 28 H 26 H Rate Respiratory Rate [Bilateral Throughout] Blood Pressure 172/76 172/76 172/76 O2 Sat by Pulse 93 98 Oximetry 04/26/21 04/26/21 04/26/21 02:30 02:41 02:51 Temperature Pulse Rate 88 89 89 Pulse Rate [ Bilateral Throughout] Pulse Rate [ From Monitor] Pulse Rate [ Right Dorsalis Pedis] Respiratory 29 H 30 H 30 H Rate Respiratory Rate [Bilateral Throughout] Blood Pressure 151/65 172/76 172/76 O2 Sat by Pulse 97 97 98 Oximetry 04/26/21 04/26/21 04/26/21 03:00 03:11 03:21 Temperature Pulse Rate 90 90 92 H Pulse Rate [ Bilateral Throughout] Pulse Rate [ From Monitor] Pulse Rate [ Right Dorsalis Pedis] Respiratory 30 H 31 H 31 H Rate Respiratory Rate [Bilateral Throughout] Blood Pressure 171/72 151/65 151/65 O2 Sat by Pulse 98 98 98 Oximetry 04/26/21 04/26/21 04/26/21 03:30 03:41 03:51 Temperature Pulse Rate 92 H 93 H 92 H Pulse Rate [ Bilateral Throughout] Pulse Rate [ From Monitor] Pulse Rate [ Right Dorsalis Pedis] Respiratory 30 H 29 H 29 H Rate Respiratory Rate [Bilateral Throughout] Blood Pressure 170/78 170/78 170/78 O2 Sat by Pulse 99 99 99 Oximetry 04/26/21 04/26/21 04/26/21 04:00 04:11 04:21 Temperature 99.2 F Pulse Rate 93 H 93 H 94 H Pulse Rate [ Bilateral Throughout] Pulse Rate [ 88 From Monitor] Pulse Rate [ 88 Right Dorsalis Pedis] Respiratory 29 H 29 H 28 H Rate Respiratory Rate [Bilateral Throughout] Blood Pressure 173/75 170/78 170/78 O2 Sat by Pulse 99 99 99 Oximetry 04/26/21 04/26/21 04/26/21 04:30 04:41 04:51 Temperature Pulse Rate 95 H 96 H 93 H Pulse Rate [ Bilateral Throughout] Pulse Rate [ From Monitor] Pulse Rate [ Right Dorsalis Pedis] Respiratory 27 H 30 H 30 H Rate Respiratory Rate [Bilateral Throughout] Blood Pressure 166/80 173/75 173/75 O2 Sat by Pulse 99 99 99 Oximetry 04/26/21 04/26/21 04/26/21 04:54 05:00 05:11 Temperature Pulse Rate 97 H 96 H 94 H Pulse Rate [ Bilateral Throughout] Pulse Rate [ From Monitor] Pulse Rate [ Right Dorsalis Pedis] Respiratory 25 H 25 H Rate Respiratory Rate [Bilateral Throughout] Blood Pressure 189/83 189/83 166/80 O2 Sat by Pulse 100 100 98 Oximetry 04/26/21 04/26/21 04/26/21 05:21 05:30 05:41 Temperature Pulse Rate 93 H 93 H 94 H Pulse Rate [ Bilateral Throughout] Pulse Rate [ From Monitor] Pulse Rate [ Right Dorsalis Pedis] Respiratory 23 19 22 Rate Respiratory Rate [Bilateral Throughout] Blood Pressure 166/80 183/69 183/69 O2 Sat by Pulse 98 99 97 Oximetry 04/26/21 04/26/21 04/26/21 05:49 05:51 06:01 Temperature Pulse Rate 92 H 92 H 91 H Pulse Rate [ Bilateral Throughout] Pulse Rate [ From Monitor] Pulse Rate [ Right Dorsalis Pedis] Respiratory 21 19 Rate Respiratory Rate [Bilateral Throughout] Blood Pressure 183/69 183/69 169/68 O2 Sat by Pulse 98 98 Oximetry 04/26/21 04/26/21 04/26/21 06:11 06:21 06:30 Temperature Pulse Rate 89 90 95 H Pulse Rate [ Bilateral Throughout] Pulse Rate [ From Monitor] Pulse Rate [ Right Dorsalis Pedis] Respiratory 19 17 22 Rate Respiratory Rate [Bilateral Throughout] Blood Pressure 183/69 183/69 161/67 O2 Sat by Pulse 98 99 99 Oximetry 04/26/21 04/26/21 04/26/21 06:41 06:51 07:00 Temperature Pulse Rate 88 89 89 Pulse Rate [ Bilateral Throughout] Pulse Rate [ From Monitor] Pulse Rate [ Right Dorsalis Pedis] Respiratory 20 23 23 Rate Respiratory Rate [Bilateral Throughout] Blood Pressure 161/67 161/67 154/66 O2 Sat by Pulse 98 95 95 Oximetry 04/26/21 04/26/21 04/26/21 07:11 07:13 07:21 Temperature Pulse Rate 88 88 Pulse Rate [ 88 Bilateral Throughout] Pulse Rate [ From Monitor] Pulse Rate [ Right Dorsalis Pedis] Respiratory 22 20 Rate Respiratory 18 Rate [Bilateral Throughout] Blood Pressure 154/66 154/66 O2 Sat by Pulse 95 99 Oximetry 04/26/21 04/26/21 04/26/21 07:30 07:41 07:51 Temperature Pulse Rate 87 86 86 Pulse Rate [ Bilateral Throughout] Pulse Rate [ From Monitor] Pulse Rate [ Right Dorsalis Pedis] Respiratory 21 22 16 Rate Respiratory Rate [Bilateral Throughout] Blood Pressure 144/66 144/66 144/66 O2 Sat by Pulse 98 98 100 Oximetry 04/26/21 04/26/21 04/26/21 07:58 08:00 08:11 Temperature 99.1 F Pulse Rate 95 H 86 93 H Pulse Rate [ Bilateral Throughout] Pulse Rate [ 89 From Monitor] Pulse Rate [ Right Dorsalis Pedis] Respiratory 21 20 Rate Respiratory Rate [Bilateral Throughout] Blood Pressure 161/67 157/67 157/67 O2 Sat by Pulse 99 99 99 Oximetry 04/26/21 04/26/21 04/26/21 08:21 08:30 08:41 Temperature Pulse Rate 86 85 84 Pulse Rate [ Bilateral Throughout] Pulse Rate [ From Monitor] Pulse Rate [ Right Dorsalis Pedis] Respiratory 17 20 19 Rate Respiratory Rate [Bilateral Throughout] Blood Pressure 157/67 142/61 142/61 O2 Sat by Pulse 99 99 99 Oximetry 04/26/21 04/26/21 04/26/21 08:51 09:00 09:11 Temperature Pulse Rate 84 83 84 Pulse Rate [ Bilateral Throughout] Pulse Rate [ From Monitor] Pulse Rate [ Right Dorsalis Pedis] Respiratory 20 19 19 Rate Respiratory Rate [Bilateral Throughout] Blood Pressure 142/61 143/61 143/61 O2 Sat by Pulse 99 99 99 Oximetry 04/26/21 04/26/21 04/26/21 09:21 09:23 09:30 Temperature Pulse Rate 77 85 84 Pulse Rate [ Bilateral Throughout] Pulse Rate [ From Monitor] Pulse Rate [ Right Dorsalis Pedis] Respiratory 18 19 Rate Respiratory Rate [Bilateral Throughout] Blood Pressure 143/61 143/61 148/63 O2 Sat by Pulse 99 100 Oximetry 04/26/21 04/26/21 04/26/21 09:41 09:51 10:00 Temperature Pulse Rate 93 H 83 81 Pulse Rate [ Bilateral Throughout] Pulse Rate [ From Monitor] Pulse Rate [ Right Dorsalis Pedis] Respiratory 18 18 18 Rate Respiratory Rate [Bilateral Throughout] Blood Pressure 148/63 143/61 145/67 O2 Sat by Pulse 100 100 100 Oximetry 04/26/21 04/26/21 10:11 10:21 Temperature Pulse Rate 86 77 Pulse Rate [ Bilateral Throughout] Pulse Rate [ From Monitor] Pulse Rate [ Right Dorsalis Pedis] Respiratory 22 19 Rate Respiratory Rate [Bilateral Throughout] Blood Pressure 145/67 145/67 O2 Sat by Pulse 100 100 Oximetry - General Apperance Constitutional: comfortable, other (intubated) - Respiratory Respiratory: lungs clear, rhonchi - Cardiovascular Cardiovascular: normal S1, normal S2 Extremities: no peripheral edema bilat, no clubbing, cyanosis - Gastrointestinal Gastrointestinal: normoactive bowel sounds - Integumentary Integumentary: normal - Neurologic Cranial nerve examination: other (pupils constrictive slightly reactive ,noEOM is noted no corneal no gag is noted) Speech examination: other (intubated) - Laboratory Findings CBC and BMP: 04/26/21 04:49 04/26/21 08:54 Abnormal Lab Findings: Abnormal Labs 04/22/21 04/22/21 04/22/21 18:12 18:12 18:12 WBC 14.6 H RBC Hgb Hct MCV 102 H MCH 33 H Plt Count Lymph % (Auto) Lymph # (Auto) [place] # (Auto) Seg Neutrophils % 70.8 H Seg Neutrophils # 10.3 H INR 1.17 H D-Dimer Heparin Anti-Xa Level ABG pH POC ABG pCO2 POC ABG pO2 ABG Hemoglobin ABG Sodium ABG Potassium ABG Glucose Carboxyhemoglobin Potassium Chloride 93.4 L Carbon Dioxide 21 L BUN Creatinine Glucose 186 H POC Glucose Lactic Acid Lactate Dehydrogenase Troponin T 0.031 H C-Reactive Protein NT-Pro-B Natriuret Pep 2448 H Arterial Blood Glucose Arterial Blood Ionized Calcium Urine Creatinine Urine Total Protein 04/22/21 04/22/21 04/22/21 18:12 19:17 20:58 WBC RBC Hgb Hct MCV MCH Plt Count Lymph % (Auto) Lymph # (Auto) [place] # (Auto) Seg Neutrophils % Seg Neutrophils # INR D-Dimer Heparin Anti-Xa Level ABG pH POC ABG pCO2 POC ABG pO2 ABG Hemoglobin ABG Sodium ABG Potassium ABG Glucose Carboxyhemoglobin Potassium Chloride Carbon Dioxide BUN Creatinine Glucose POC Glucose Lactic Acid 11.00 H* 9.50 H* 5.70 H* Lactate Dehydrogenase Troponin T C-Reactive Protein NT-Pro-B Natriuret Pep Arterial Blood Glucose Arterial Blood Ionized Calcium Urine Creatinine Urine Total Protein 04/22/21 04/22/21 04/22/21 20:58 21:10 23:03 WBC RBC Hgb Hct MCV MCH Plt Count Lymph % (Auto) Lymph # (Auto) [place] # (Auto) Seg Neutrophils % Seg Neutrophils # INR D-Dimer Heparin Anti-Xa Level ABG pH 7.492 H POC ABG pCO2 30.4 L POC ABG pO2 80.3 L ABG Hemoglobin ABG Sodium ABG Potassium 3.2 L ABG Glucose 202 H Carboxyhemoglobin 1.6 H Potassium Chloride Carbon Dioxide BUN Creatinine Glucose POC Glucose 175 H Lactic Acid Lactate Dehydrogenase Troponin T 0.363 H* D C-Reactive Protein NT-Pro-B Natriuret Pep Arterial Blood Glucose 202 H Arterial Blood Ionized Calcium 4.2 L Urine Creatinine Urine Total Protein 04/22/21 04/23/21 04/23/21 23:40 02:36 02:36 WBC 14.6 H RBC Hgb Hct MCV 97 H MCH 33 H Plt Count Lymph % (Auto) 3.6 L Lymph # (Auto) 0.5 L [place] # (Auto) 1.0 H Seg Neutrophils % 89.4 H Seg Neutrophils # 13.0 H INR D-Dimer Heparin Anti-Xa Level ABG pH POC ABG pCO2 POC ABG pO2 ABG Hemoglobin ABG Sodium ABG Potassium ABG Glucose Carboxyhemoglobin Potassium Chloride Carbon Dioxide BUN Creatinine Glucose POC Glucose Lactic Acid 3.60 H* Lactate Dehydrogenase Troponin T 1.020 H* D C-Reactive Protein NT-Pro-B Natriuret Pep Arterial Blood Glucose Arterial Blood Ionized Calcium Urine Creatinine Urine Total Protein 04/23/21 04/23/21 04/23/21 02:36 03:54 05:22 WBC RBC Hgb Hct MCV MCH Plt Count Lymph % (Auto) Lymph # (Auto) [place] # (Auto) Seg Neutrophils % Seg Neutrophils # INR D-Dimer Heparin Anti-Xa Level ABG pH 7.536 H POC ABG pCO2 31.1 L POC ABG pO2 112.7 H ABG Hemoglobin ABG Sodium ABG Potassium 3.3 L ABG Glucose 129 H Carboxyhemoglobin Potassium Chloride 97.4 L Carbon Dioxide BUN 21 H Creatinine 1.6 H Glucose 145 H POC Glucose 123 H Lactic Acid Lactate Dehydrogenase Troponin T C-Reactive Protein NT-Pro-B Natriuret Pep Arterial Blood Glucose 129 H Arterial Blood Ionized Calcium 4.1 L Urine Creatinine Urine Total Protein 04/23/21 04/23/21 04/23/21 08:58 08:58 08:58 WBC RBC Hgb Hct MCV MCH Plt Count Lymph % (Auto) Lymph # (Auto) [place] # (Auto) Seg Neutrophils % Seg Neutrophils # INR D-Dimer 8003.00 H Heparin Anti-Xa Level ABG pH POC ABG pCO2 POC ABG pO2 ABG Hemoglobin ABG Sodium ABG Potassium ABG Glucose Carboxyhemoglobin Potassium Chloride Carbon Dioxide BUN Creatinine Glucose POC Glucose Lactic Acid 2.40 H* Lactate Dehydrogenase 546 H Troponin T C-Reactive Protein 2.20 H NT-Pro-B Natriuret Pep Arterial Blood Glucose Arterial Blood Ionized Calcium Urine Creatinine Urine Total Protein 04/23/21 04/23/21 04/23/21 12:07 13:46 17:29 WBC RBC Hgb Hct MCV MCH Plt Count Lymph % (Auto) Lymph # (Auto) [place] # (Auto) Seg Neutrophils % Seg Neutrophils # INR D-Dimer Heparin Anti-Xa Level ABG pH POC ABG pCO2 POC ABG pO2 ABG Hemoglobin ABG Sodium ABG Potassium ABG Glucose Carboxyhemoglobin Potassium Chloride Carbon Dioxide BUN Creatinine Glucose POC Glucose 150 H 145 H Lactic Acid Lactate Dehydrogenase Troponin T C-Reactive Protein NT-Pro-B Natriuret Pep Arterial Blood Glucose Arterial Blood Ionized Calcium Urine Creatinine 90.4 H Urine Total Protein 103 H 04/23/21 04/24/21 04/24/21 23:51 04:01 05:02 WBC RBC Hgb Hct MCV MCH Plt Count Lymph % (Auto) Lymph # (Auto) [place] # (Auto) Seg Neutrophils % Seg Neutrophils # INR D-Dimer Heparin Anti-Xa Level ABG pH 7.485 H POC ABG pCO2 POC ABG pO2 ABG Hemoglobin ABG Sodium 135.8 L ABG Potassium ABG Glucose 140 H Carboxyhemoglobin Potassium Chloride Carbon Dioxide BUN Creatinine Glucose POC Glucose 140 H 136 H Lactic Acid Lactate Dehydrogenase Troponin T C-Reactive Protein NT-Pro-B Natriuret Pep Arterial Blood Glucose 140 H Arterial Blood Ionized Calcium 4.3 L Urine Creatinine Urine Total Protein 04/24/21 04/24/21 04/24/21 07:03 07:03 11:40 WBC 12.4 H RBC 3.60 L Hgb 11.7 L Hct 34.7 L MCV 96 H MCH 33 H Plt Count Lymph % (Auto) Lymph # (Auto) [place] # (Auto) Seg Neutrophils % Seg Neutrophils # INR D-Dimer Heparin Anti-Xa Level ABG pH POC ABG pCO2 POC ABG pO2 ABG Hemoglobin ABG Sodium ABG Potassium ABG Glucose Carboxyhemoglobin Potassium 3.5 L Chloride Carbon Dioxide BUN 28 H Creatinine 2.2 H Glucose 133 H POC Glucose 153 H Lactic Acid Lactate Dehydrogenase Troponin T C-Reactive Protein NT-Pro-B Natriuret Pep Arterial Blood Glucose Arterial Blood Ionized Calcium Urine Creatinine Urine Total Protein 04/24/21 04/24/21 04/25/21 17:20 23:39 03:05 WBC RBC Hgb Hct MCV MCH Plt Count Lymph % (Auto) Lymph # (Auto) [place] # (Auto) Seg Neutrophils % Seg Neutrophils # INR D-Dimer Heparin Anti-Xa Level ABG pH 7.462 H POC ABG pCO2 POC ABG pO2 80.2 L ABG Hemoglobin 11.0 L ABG Sodium ABG Potassium 3.3 L ABG Glucose 137 H Carboxyhemoglobin Potassium Chloride Carbon Dioxide BUN Creatinine Glucose POC Glucose 170 H 130 H Lactic Acid Lactate Dehydrogenase Troponin T C-Reactive Protein NT-Pro-B Natriuret Pep Arterial Blood Glucose 137 H Arterial Blood Ionized Calcium 4.5 L Urine Creatinine Urine Total Protein 04/25/21 04/25/21 04/25/21 05:31 08:55 08:55 WBC RBC 3.32 L Hgb 10.8 L Hct 32.5 L MCV 98 H MCH Plt Count 116 L Lymph % (Auto) Lymph # (Auto) [place] # (Auto) Seg Neutrophils % Seg Neutrophils # INR D-Dimer Heparin Anti-Xa Level ABG pH POC ABG pCO2 POC ABG pO2 ABG Hemoglobin ABG Sodium ABG Potassium ABG Glucose Carboxyhemoglobin Potassium 3.4 L Chloride Carbon Dioxide BUN 34 H Creatinine 1.9 H Glucose 123 H POC Glucose 152 H Lactic Acid Lactate Dehydrogenase Troponin T C-Reactive Protein NT-Pro-B Natriuret Pep Arterial Blood Glucose Arterial Blood Ionized Calcium Urine Creatinine Urine Total Protein 04/25/21 04/25/21 04/25/21 11:55 17:25 23:28 WBC RBC Hgb Hct MCV MCH Plt Count Lymph % (Auto) Lymph # (Auto) [place] # (Auto) Seg Neutrophils % Seg Neutrophils # INR D-Dimer Heparin Anti-Xa Level ABG pH POC ABG pCO2 POC ABG pO2 ABG Hemoglobin ABG Sodium ABG Potassium ABG Glucose Carboxyhemoglobin Potassium Chloride Carbon Dioxide BUN Creatinine Glucose POC Glucose 142 H 121 H 141 H Lactic Acid Lactate Dehydrogenase Troponin T C-Reactive Protein NT-Pro-B Natriuret Pep Arterial Blood Glucose Arterial Blood Ionized Calcium Urine Creatinine Urine Total Protein 04/26/21 04/26/21 04/26/21 04:49 05:00 05:40 WBC RBC 3.37 L Hgb 11.1 L Hct 32.6 L MCV 97 H MCH 33 H Plt Count Lymph % (Auto) Lymph # (Auto) [place] # (Auto) Seg Neutrophils % Seg Neutrophils # INR D-Dimer Heparin Anti-Xa Level ABG pH 7.495 H POC ABG pCO2 POC ABG pO2 ABG Hemoglobin 11.6 L ABG Sodium ABG Potassium ABG Glucose 134 H Carboxyhemoglobin Potassium Chloride Carbon Dioxide BUN Creatinine Glucose POC Glucose 127 H Lactic Acid Lactate Dehydrogenase Troponin T C-Reactive Protein NT-Pro-B Natriuret Pep Arterial Blood Glucose 134 H Arterial Blood Ionized Calcium Urine Creatinine Urine Total Protein 04/26/21 04/26/21 08:54 08:54 WBC RBC Hgb Hct MCV MCH Plt Count Lymph % (Auto) Lymph # (Auto) [place] # (Auto) Seg Neutrophils % Seg Neutrophils # INR D-Dimer Heparin Anti-Xa Level 0.20 L ABG pH POC ABG pCO2 POC ABG pO2 ABG Hemoglobin ABG Sodium ABG Potassium ABG Glucose Carboxyhemoglobin Potassium Chloride Carbon Dioxide BUN 36 H Creatinine 1.7 H Glucose 132 H POC Glucose Lactic Acid Lactate Dehydrogenase Troponin T C-Reactive Protein NT-Pro-B Natriuret Pep Arterial Blood Glucose Arterial Blood Ionized Calcium Urine Creatinine Urine Total Protein
--- NOTE | 2021-04-26 10:54 | Vascular Lab Report ---
DUPLEX DOPPLER LOWER EXTREMITY VEINS, BILATERAL INDICATION / CLINICAL INFORMATION: r/o DVT. TECHNIQUE: Duplex doppler imaging was performed through the veins of both lower extremities using venous sena mayda and other maneuvers. COMPARISON: None available. FINDINGS: RIGHT COMMON FEMORAL VEIN: Negative. RIGHT FEMORAL VEIN: Negative. RIGHT POPLITEAL VEIN: Negative. RIGHT CALF VEINS: Negative. LEFT COMMON FEMORAL VEIN: Negative. LEFT FEMORAL VEIN: Negative. LEFT POPLITEAL VEIN: Negative. LEFT CALF VEINS: Negative. ADDITIONAL FINDINGS: None. IMPRESSION: 1. No sonographic evidence for DVT in either lower extremity. Signer Name: Adan Larkin MD Signed: 04/26/2021 10:50 AM Workstation Name: [id number]
--- NOTE | 2021-04-26 14:06 | Progress Note ---
Assessment and Plan Cardiac arrest with ROSC Acute hypoxemic respiratory failure Acute kidney injury secondary to vasomotor nephropathy COVID-19 PUI NSTEMI Acute Encephalopathy Myoclonic jerks vs Seizures Lactic acidosis Elevated D-dimer CAD s/p CABG x3 Ischemic cardiomyopathy with EF of 40 to 45% Hypertension Hyperlipidemia CVA Diabetes type II (discussed with his who is waiting for her Son to get back home; in meantime she agrees to talk to Surgeon about tracheostomy) - surgery consulted for trach & PEG - get 2 sets of blood cultures for fever > 101F - watch clinically off AB's re: fevers / WBC - hold on CTA chest re: DELMI and pending families decision - continue IV Heparin re: NSTEMI and follow platelets - continue care as below otherwise; - follow neurology evaluation - prn vasopressors for target MAP > 65 mmHg - inotropic support per cardiology recommendations - continue to wean supplemental oxygen for target O2 sat's > 90% acutely - VAP bundle addressed - continue lung protective strategies - continue bronchodilators with pulmonary hygiene per RT - wean per pulmonary driven protocols otherwise - continue Daily SAT and SBT assessment as tolerated - continue accuchecks with glycemic control per SSI (While critically ill target blood glucose of 140-180 mg/dL; avoid hypoglycemia) - sedation prn for target RASS 0 to -1 - avoid nephrotoxins, renally dose all medications - continue to avoid benzodiazepine's, reduce the possibility of delirium - AB's per ID rec's - prn analgesia per CPOT score - Maintenance of sleep-wake cycle, avoid delirium - enteral nutritional support at goal rate as tolerated - G.I. & VTE prophylaxis - PT/OT/ROM exercises - mobility protocols for pressure ulcer prophylaxis - Monitor hemodynamics closely - continue other care per attending / other consultants - discharge planning ongoing concurrently COVID SPECIFIC INTERVENTIONS - Remdesivir as per ID/Pulmonary developed protocols - consider systemic steroids for severe COVID-19 infection empirically - follow repeat COVID tests results - zinc and vitamin C supplementation - Monitor inflammatory markers per facility protocol - ferritin, Ddimer, CRP - consider therapeutic anticoagulation per system Protocol based on d-dimer and clinical considerations - Continue contact and airborne isolation .... Re-evaluate in am & prn CONDITION: CRITICAL PROGNOSIS: GUARDED CODE STATUS: FULL CODE The high probability of a clinically significant, sudden or life-threatening deterioration of the [respiratory, cardiovascular & neurologic] system(s) required my full and direct attention, intervention and personal management. The aggregate critical care time was [34] minutes without overlap. Time includes s pent on; [x] Data Review and interpretation [x] Patient assessment and monitoring of vital signs [x] Documentation [x] Medication orders and management Subjective Date of service: 04/26/21 Principal diagnosis: Cardiac; DELMI; Ac hypoxemic resp failure; Ac Encephalopathy; HFrEF; DM II Interval history: Patient is seen today for: Cardiac arrest with ROSC; DELMI; Acute hypoxemic respiratory failure; PUI COVID-19; NSTEMI; Acute Encephalopathy Myoclonic jerks vs Seizures; Ischemic cardiomyopathy with EF of 20 to 25%; DM II; H/O CVA Seen and examined at bedside; 24hour events reviewed; nursing and respiratory care staff consulted; no adverse overnight events reported to me; resting peacefully in bed; placed on SBT and tolereating well; dopplers negative for DVT; + low grade fevers off AB's no high spikes; azotemia is better Objective Vital Signs - 12hr 04/26/21 04/26/21 04/26/21 01:41 01:51 02:00 Temperature Pulse Rate 82 84 84 Pulse Rate [ 86 Bilateral Throughout] Pulse Rate [ From Monitor] Pulse Rate [ Right Dorsalis Pedis] Respiratory 27 H 24 28 H Rate Respiratory 26 H Rate [Bilateral Throughout] Blood Pressure 154/68 154/68 172/76 O2 Sat by Pulse 99 98 99 Oximetry 04/26/21 04/26/21 04/26/21 02:11 02:21 02:22 Temperature Pulse Rate 86 85 86 Pulse Rate [ Bilateral Throughout] Pulse Rate [ From Monitor] Pulse Rate [ Right Dorsalis Pedis] Respiratory 28 H 26 H Rate Respiratory Rate [Bilateral Throughout] Blood Pressure 172/76 172/76 172/76 O2 Sat by Pulse 93 98 Oximetry 04/26/21 04/26/21 04/26/21 02:30 02:41 02:51 Temperature Pulse Rate 88 89 89 Pulse Rate [ Bilateral Throughout] Pulse Rate [ From Monitor] Pulse Rate [ Right Dorsalis Pedis] Respiratory 29 H 30 H 30 H Rate Respiratory Rate [Bilateral Throughout] Blood Pressure 151/65 172/76 172/76 O2 Sat by Pulse 97 97 98 Oximetry 04/26/21 04/26/21 04/26/21 03:00 03:11 03:21 Temperature Pulse Rate 90 90 92 H Pulse Rate [ Bilateral Throughout] Pulse Rate [ From Monitor] Pulse Rate [ Right Dorsalis Pedis] Respiratory 30 H 31 H 31 H Rate Respiratory Rate [Bilateral Throughout] Blood Pressure 171/72 151/65 151/65 O2 Sat by Pulse 98 98 98 Oximetry 04/26/21 04/26/21 04/26/21 03:30 03:41 03:51 Temperature Pulse Rate 92 H 93 H 92 H Pulse Rate [ Bilateral Throughout] Pulse Rate [ From Monitor] Pulse Rate [ Right Dorsalis Pedis] Respiratory 30 H 29 H 29 H Rate Respiratory Rate [Bilateral Throughout] Blood Pressure 170/78 170/78 170/78 O2 Sat by Pulse 99 99 99 Oximetry 04/26/21 04/26/21 04/26/21 04:00 04:11 04:21 Temperature 99.2 F Pulse Rate 93 H 93 H 94 H Pulse Rate [ Bilateral Throughout] Pulse Rate [ 88 From Monitor] Pulse Rate [ 88 Right Dorsalis Pedis] Respiratory 29 H 29 H 28 H Rate Respiratory Rate [Bilateral Throughout] Blood Pressure 173/75 170/78 170/78 O2 Sat by Pulse 99 99 99 Oximetry 04/26/21 04/26/21 04/26/21 04:30 04:41 04:51 Temperature Pulse Rate 95 H 96 H 93 H Pulse Rate [ Bilateral Throughout] Pulse Rate [ From Monitor] Pulse Rate [ Right Dorsalis Pedis] Respiratory 27 H 30 H 30 H Rate Respiratory Rate [Bilateral Throughout] Blood Pressure 166/80 173/75 173/75 O2 Sat by Pulse 99 99 99 Oximetry 04/26/21 04/26/21 04/26/21 04:54 05:00 05:11 Temperature Pulse Rate 97 H 96 H 94 H Pulse Rate [ Bilateral Throughout] Pulse Rate [ From Monitor] Pulse Rate [ Right Dorsalis Pedis] Respiratory 25 H 25 H Rate Respiratory Rate [Bilateral Throughout] Blood Pressure 189/83 189/83 166/80 O2 Sat by Pulse 100 100 98 Oximetry 04/26/21 04/26/21 04/26/21 05:21 05:30 05:41 Temperature Pulse Rate 93 H 93 H 94 H Pulse Rate [ Bilateral Throughout] Pulse Rate [ From Monitor] Pulse Rate [ Right Dorsalis Pedis] Respiratory 23 19 22 Rate Respiratory Rate [Bilateral Throughout] Blood Pressure 166/80 183/69 183/69 O2 Sat by Pulse 98 99 97 Oximetry 04/26/21 04/26/21 04/26/21 05:49 05:51 06:01 Temperature Pulse Rate 92 H 92 H 91 H Pulse Rate [ Bilateral Throughout] Pulse Rate [ From Monitor] Pulse Rate [ Right Dorsalis Pedis] Respiratory 21 19 Rate Respiratory Rate [Bilateral Throughout] Blood Pressure 183/69 183/69 169/68 O2 Sat by Pulse 98 98 Oximetry 04/26/21 04/26/21 04/26/21 06:11 06:21 06:30 Temperature Pulse Rate 89 90 95 H Pulse Rate [ Bilateral Throughout] Pulse Rate [ From Monitor] Pulse Rate [ Right Dorsalis Pedis] Respiratory 19 17 22 Rate Respiratory Rate [Bilateral Throughout] Blood Pressure 183/69 183/69 161/67 O2 Sat by Pulse 98 99 99 Oximetry 04/26/21 04/26/21 04/26/21 06:41 06:51 07:00 Temperature Pulse Rate 88 89 89 Pulse Rate [ Bilateral Throughout] Pulse Rate [ From Monitor] Pulse Rate [ Right Dorsalis Pedis] Respiratory 20 23 23 Rate Respiratory Rate [Bilateral Throughout] Blood Pressure 161/67 161/67 154/66 O2 Sat by Pulse 98 95 95 Oximetry 04/26/21 04/26/21 04/26/21 07:11 07:13 07:21 Temperature Pulse Rate 88 88 Pulse Rate [ 88 Bilateral Throughout] Pulse Rate [ From Monitor] Pulse Rate [ Right Dorsalis Pedis] Respiratory 22 20 Rate Respiratory 18 Rate [Bilateral Throughout] Blood Pressure 154/66 154/66 O2 Sat by Pulse 95 99 Oximetry 04/26/21 04/26/21 04/26/21 07:30 07:41 07:51 Temperature Pulse Rate 87 86 86 Pulse Rate [ Bilateral Throughout] Pulse Rate [ From Monitor] Pulse Rate [ Right Dorsalis Pedis] Respiratory 21 22 16 Rate Respiratory Rate [Bilateral Throughout] Blood Pressure 144/66 144/66 144/66 O2 Sat by Pulse 98 98 100 Oximetry 04/26/21 04/26/21 04/26/21 07:58 08:00 08:11 Temperature 99.1 F Pulse Rate 95 H 86 93 H Pulse Rate [ Bilateral Throughout] Pulse Rate [ 89 From Monitor] Pulse Rate [ Right Dorsalis Pedis] Respiratory 21 20 Rate Respiratory Rate [Bilateral Throughout] Blood Pressure 161/67 157/67 157/67 O2 Sat by Pulse 99 99 99 Oximetry 04/26/21 04/26/21 04/26/21 08:21 08:30 08:41 Temperature Pulse Rate 86 85 84 Pulse Rate [ Bilateral Throughout] Pulse Rate [ From Monitor] Pulse Rate [ Right Dorsalis Pedis] Respiratory 17 20 19 Rate Respiratory Rate [Bilateral Throughout] Blood Pressure 157/67 142/61 142/61 O2 Sat by Pulse 99 99 99 Oximetry 04/26/21 04/26/21 04/26/21 08:51 09:00 09:11 Temperature Pulse Rate 84 83 84 Pulse Rate [ Bilateral Throughout] Pulse Rate [ From Monitor] Pulse Rate [ Right Dorsalis Pedis] Respiratory 20 19 19 Rate Respiratory Rate [Bilateral Throughout] Blood Pressure 142/61 143/61 143/61 O2 Sat by Pulse 99 99 99 Oximetry 04/26/21 04/26/21 04/26/21 09:21 09:23 09:30 Temperature Pulse Rate 77 85 84 Pulse Rate [ Bilateral Throughout] Pulse Rate [ From Monitor] Pulse Rate [ Right Dorsalis Pedis] Respiratory 18 19 Rate Respiratory Rate [Bilateral Throughout] Blood Pressure 143/61 143/61 148/63 O2 Sat by Pulse 99 100 Oximetry 04/26/21 04/26/21 04/26/21 09:41 09:51 10:00 Temperature Pulse Rate 93 H 83 81 Pulse Rate [ Bilateral Throughout] Pulse Rate [ From Monitor] Pulse Rate [ Right Dorsalis Pedis] Respiratory 18 18 18 Rate Respiratory Rate [Bilateral Throughout] Blood Pressure 148/63 143/61 145/67 O2 Sat by Pulse 100 100 100 Oximetry 04/26/21 04/26/21 04/26/21 10:11 10:21 10:30 Temperature Pulse Rate 86 77 76 Pulse Rate [ Bilateral Throughout] Pulse Rate [ From Monitor] Pulse Rate [ Right Dorsalis Pedis] Respiratory 22 19 18 Rate Respiratory Rate [Bilateral Throughout] Blood Pressure 145/67 145/67 145/67 O2 Sat by Pulse 100 100 100 Oximetry 04/26/21 04/26/21 04/26/21 10:41 10:51 11:00 Temperature 98.4 F Pulse Rate 73 76 73 Pulse Rate [ Bilateral Throughout] Pulse Rate [ From Monitor] Pulse Rate [ Right Dorsalis Pedis] Respiratory 19 19 21 Rate Respiratory Rate [Bilateral Throughout] Blood Pressure 140/65 130/62 O2 Sat by Pulse 100 100 99 Oximetry 04/26/21 04/26/21 04/26/21 11:11 11:21 11:30 Temperature Pulse Rate 74 73 72 Pulse Rate [ Bilateral Throughout] Pulse Rate [ From Monitor] Pulse Rate [ Right Dorsalis Pedis] Respiratory 19 19 19 Rate Respiratory Rate [Bilateral Throughout] Blood Pressure 130/62 130/62 136/63 O2 Sat by Pulse 100 100 99 Oximetry 04/26/21 04/26/21 04/26/21 11:41 11:51 11:54 Temperature Pulse Rate 72 73 77 Pulse Rate [ Bilateral Throughout] Pulse Rate [ From Monitor] Pulse Rate [ Right Dorsalis Pedis] Respiratory 18 18 Rate Respiratory Rate [Bilateral Throughout] Blood Pressure 136/63 136/63 145/67 O2 Sat by Pulse 100 100 100 Oximetry 04/26/21 04/26/21 04/26/21 12:00 12:11 12:21 Temperature Pulse Rate 75 73 72 Pulse Rate [ Bilateral Throughout] Pulse Rate [ 89 From Monitor] Pulse Rate [ Right Dorsalis Pedis] Respiratory 17 18 18 Rate Respiratory Rate [Bilateral Throughout] Blood Pressure 135/68 135/68 135/68 O2 Sat by Pulse 100 100 100 Oximetry 04/26/21 04/26/21 04/26/21 12:30 12:41 12:51 Temperature Pulse Rate 72 70 71 Pulse Rate [ Bilateral Throughout] Pulse Rate [ From Monitor] Pulse Rate [ Right Dorsalis Pedis] Respiratory 18 16 17 Rate Respiratory Rate [Bilateral Throughout] Blood Pressure 142/65 142/65 142/65 O2 Sat by Pulse 100 100 100 Oximetry 04/26/21 13:00 Temperature Pulse Rate 71 Pulse Rate [ Bilateral Throughout] Pulse Rate [ From Monitor] Pulse Rate [ Right Dorsalis Pedis] Respiratory 16 Rate Respiratory Rate [Bilateral Throughout] Blood Pressure 144/66 O2 Sat by Pulse 100 Oximetry Constitutional: no acute distress, other (elderly obese male without significant patient-ventilator dyssynchrony) Eyes: non-icteric ENT: oropharynx moist, oropharyngeal exudate pre (copious), other (ETT 24 cm PERNELL) Neck: supple, no lymphadenopathy, no JVD Effort: normal Ascultation: Bilateral: clear, diminished breath sounds Percussion: Bilateral: not dull Cardiovascular: regular rate and rhythm Gastrointestinal: normoactive bowel sounds, soft, non-tender, non-distended (pr otuberant) Integumentary: other (scars in abdomen and lower extremities) Extremities: no cyanosis, no edema, pulses normal, no ischemia or petechiae Neurologic: pupils equal and round (pin- point), unable to assess Psychiatric: other (unable to assess re: AMS) CBC and BMP: 04/26/21 04:49 04/26/21 08:54 ABG, PT/INR, D-dimer: ABG ABG pH 7.495 (7.320-7.450) H 04/26/21 05:00 POC ABG pCO2 35.9 mmHg (32.0-48.0) 04/26/21 05:00 POC ABG pO2 90.8 mmHg (83-108) 04/26/21 05:00 POC ABG HCO3 27.1 04/26/21 05:00 ABG O2 Saturation 97.3 (0-100) 04/26/21 05:00 PT/INR, D-dimer PT 14.9 Sec. (12.2-14.9) 04/22/21 18:12 INR 1.17 (0.87-1.13) H 04/22/21 18:12 D-Dimer 8003.00 ng/mlDDU (0-234) H 04/23/21 08:58 Abnormal lab findings: Abnormal Labs 04/22/21 04/22/21 04/22/21 18:12 18:12 18:12 WBC 14.6 H RBC Hgb Hct MCV 102 H MCH 33 H Plt Count Lymph % (Auto) Lymph # (Auto) Menard # (Auto) Seg Neutrophils % 70.8 H Seg Neutrophils # 10.3 H INR 1.17 H D-Dimer Heparin Anti-Xa Level ABG pH POC ABG pCO2 POC ABG pO2 ABG Hemoglobin ABG Sodium ABG Potassium ABG Glucose Carboxyhemoglobin Potassium Chloride 93.4 L Carbon Dioxide 21 L BUN Creatinine Glucose 186 H POC Glucose Lactic Acid Lactate Dehydrogenase Troponin T 0.031 H C-Reactive Protein NT-Pro-B Natriuret Pep 2448 H Arterial Blood Glucose Arterial Blood Ionized Calcium Urine Creatinine Urine Total Protein 04/22/21 04/22/21 04/22/21 18:12 19:17 20:58 WBC RBC Hgb Hct MCV MCH Plt Count Lymph % (Auto) Lymph # (Auto) Menard # (Auto) Seg Neutrophils % Seg Neutrophils # INR D-Dimer Heparin Anti-Xa Level ABG pH POC ABG pCO2 POC ABG pO2 ABG Hemoglobin ABG Sodium ABG Potassium ABG Glucose Carboxyhemoglobin Potassium Chloride Carbon Dioxide BUN Creatinine Glucose POC Glucose Lactic Acid 11.00 H* 9.50 H* 5.70 H* Lactate Dehydrogenase Troponin T C-Reactive Protein NT-Pro-B Natriuret Pep Arterial Blood Glucose Arterial Blood Ionized Calcium Urine Creatinine Urine Total Protein 04/22/21 04/22/21 04/22/21 20:58 21:10 23:03 WBC RBC Hgb Hct MCV MCH Plt Count Lymph % (Auto) Lymph # (Auto) Menard # (Auto) Seg Neutrophils % Seg Neutrophils # INR D-Dimer Heparin Anti-Xa Level ABG pH 7.492 H POC ABG pCO2 30.4 L POC ABG pO2 80.3 L ABG Hemoglobin ABG Sodium ABG Potassium 3.2 L ABG Glucose 202 H Carboxyhemoglobin 1.6 H Potassium Chloride Carbon Dioxide BUN Creatinine Glucose POC Glucose 175 H Lactic Acid Lactate Dehydrogenase Troponin T 0.363 H* D C-Reactive Protein NT-Pro-B Natriuret Pep Arterial Blood Glucose 202 H Arterial Blood Ionized Calcium 4.2 L Urine Creatinine Urine Total Protein 04/22/21 04/23/21 04/23/21 23:40 02:36 02:36 WBC 14.6 H RBC Hgb Hct MCV 97 H MCH 33 H Plt Count Lymph % (Auto) 3.6 L Lymph # (Auto) 0.5 L Menard # (Auto) 1.0 H Seg Neutrophils % 89.4 H Seg Neutrophils # 13.0 H INR D-Dimer Heparin Anti-Xa Level ABG pH POC ABG pCO2 POC ABG pO2 ABG Hemoglobin ABG Sodium ABG Potassium ABG Glucose Carboxyhemoglobin Potassium Chloride Carbon Dioxide BUN Creatinine Glucose POC Glucose Lactic Acid 3.60 H* Lactate Dehydrogenase Troponin T 1.020 H* D C-Reactive Protein NT-Pro-B Natriuret Pep Arterial Blood Glucose Arterial Blood Ionized Calcium Urine Creatinine Urine Total Protein 04/23/21 04/23/21 04/23/21 02:36 03:54 05:22 WBC RBC Hgb Hct MCV MCH Plt Count Lymph % (Auto) Lymph # (Auto) Menard # (Auto) Seg Neutrophils % Seg Neutrophils # INR D-Dimer Heparin Anti-Xa Level ABG pH 7.536 H POC ABG pCO2 31.1 L POC ABG pO2 112.7 H ABG Hemoglobin ABG Sodium ABG Potassium 3.3 L ABG Glucose 129 H Carboxyhemoglobin Potassium Chloride 97.4 L Carbon Dioxide BUN 21 H Creatinine 1.6 H Glucose 145 H POC Glucose 123 H Lactic Acid Lactate Dehydrogenase Troponin T C-Reactive Protein NT-Pro-B Natriuret Pep Arterial Blood Glucose 129 H Arterial Blood Ionized Calcium 4.1 L Urine Creatinine Urine Total Protein 04/23/21 04/23/21 04/23/21 08:58 08:58 08:58 WBC RBC Hgb Hct MCV MCH Plt Count Lymph % (Auto) Lymph # (Auto) Menard # (Auto) Seg Neutrophils % Seg Neutrophils # INR D-Dimer 8003.00 H Heparin Anti-Xa Level ABG pH POC ABG pCO2 POC ABG pO2 ABG Hemoglobin ABG Sodium ABG Potassium ABG Glucose Carboxyhemoglobin Potassium Chloride Carbon Dioxide BUN Creatinine Glucose POC Glucose Lactic Acid 2.40 H* Lactate Dehydrogenase 546 H Troponin T C-Reactive Protein 2.20 H NT-Pro-B Natriuret Pep Arterial Blood Glucose Arterial Blood Ionized Calcium Urine Creatinine Urine Total Protein 04/23/21 04/23/21 04/23/21 12:07 13:46 17:29 WBC RBC Hgb Hct MCV MCH Plt Count Lymph % (Auto) Lymph # (Auto) Menard # (Auto) Seg Neutrophils % Seg Neutrophils # INR D-Dimer Heparin Anti-Xa Level ABG pH POC ABG pCO2 POC ABG pO2 ABG Hemoglobin ABG Sodium ABG Potassium ABG Glucose Carboxyhemoglobin Potassium Chloride Carbon Dioxide BUN Creatinine Glucose POC Glucose 150 H 145 H Lactic Acid Lactate Dehydrogenase Troponin T C-Reactive Protein NT-Pro-B Natriuret Pep Arterial Blood Glucose Arterial Blood Ionized Calcium Urine Creatinine 90.4 H Urine Total Protein 103 H 04/23/21 04/24/21 04/24/21 23:51 04:01 05:02 WBC RBC Hgb Hct MCV MCH Plt Count Lymph % (Auto) Lymph # (Auto) Menard # (Auto) Seg Neutrophils % Seg Neutrophils # INR D-Dimer Heparin Anti-Xa Level ABG pH 7.485 H POC ABG pCO2 POC ABG pO2 ABG Hemoglobin ABG Sodium 135.8 L ABG Potassium ABG Glucose 140 H Carboxyhemoglobin Potassium Chloride Carbon Dioxide BUN Creatinine Glucose POC Glucose 140 H 136 H Lactic Acid Lactate Dehydrogenase Troponin T C-Reactive Protein NT-Pro-B Natriuret Pep Arterial Blood Glucose 140 H Arterial Blood Ionized Calcium 4.3 L Urine Creatinine Urine Total Protein 04/24/21 04/24/21 04/24/21 07:03 07:03 11:40 WBC 12.4 H RBC 3.60 L Hgb 11.7 L Hct 34.7 L MCV 96 H MCH 33 H Plt Count Lymph % (Auto) Lymph # (Auto) Menard # (Auto) Seg Neutrophils % Seg Neutrophils # INR D-Dimer Heparin Anti-Xa Level ABG pH POC ABG pCO2 POC ABG pO2 ABG Hemoglobin ABG Sodium ABG Potassium ABG Glucose Carboxyhemoglobin Potassium 3.5 L Chloride Carbon Dioxide BUN 28 H Creatinine 2.2 H Glucose 133 H POC Glucose 153 H Lactic Acid Lactate Dehydrogenase Troponin T C-Reactive Protein NT-Pro-B Natriuret Pep Arterial Blood Glucose Arterial Blood Ionized Calcium Urine Creatinine Urine Total Protein 04/24/21 04/24/21 04/25/21 17:20 23:39 03:05 WBC RBC Hgb Hct MCV MCH Plt Count Lymph % (Auto) Lymph # (Auto) Menard # (Auto) Seg Neutrophils % Seg Neutrophils # INR D-Dimer Heparin Anti-Xa Level ABG pH 7.462 H POC ABG pCO2 POC ABG pO2 80.2 L ABG Hemoglobin 11.0 L ABG Sodium ABG Potassium 3.3 L ABG Glucose 137 H Carboxyhemoglobin Potassium Chloride Carbon Dioxide BUN Creatinine Glucose POC Glucose 170 H 130 H Lactic Acid Lactate Dehydrogenase Troponin T C-Reactive Protein NT-Pro-B Natriuret Pep Arterial Blood Glucose 137 H Arterial Blood Ionized Calcium 4.5 L Urine Creatinine Urine Total Protein 04/25/21 04/25/21 04/25/21 05:31 08:55 08:55 WBC RBC 3.32 L Hgb 10.8 L Hct 32.5 L MCV 98 H MCH Plt Count 116 L Lymph % (Auto) Lymph # (Auto) Menard # (Auto) Seg Neutrophils % Seg Neutrophils # INR D-Dimer Heparin Anti-Xa Level ABG pH POC ABG pCO2 POC ABG pO2 ABG Hemoglobin ABG Sodium ABG Potassium ABG Glucose Carboxyhemoglobin Potassium 3.4 L Chloride Carbon Dioxide BUN 34 H Creatinine 1.9 H Glucose 123 H POC Glucose 152 H Lactic Acid Lactate Dehydrogenase Troponin T C-Reactive Protein NT-Pro-B Natriuret Pep Arterial Blood Glucose Arterial Blood Ionized Calcium Urine Creatinine Urine Total Protein 04/25/21 04/25/21 04/25/21 11:55 17:25 23:28 WBC RBC Hgb Hct MCV MCH Plt Count Lymph % (Auto) Lymph # (Auto) Menard # (Auto) Seg Neutrophils % Seg Neutrophils # INR D-Dimer Heparin Anti-Xa Level ABG pH POC ABG pCO2 POC ABG pO2 ABG Hemoglobin ABG Sodium ABG Potassium ABG Glucose Carboxyhemoglobin Potassium Chloride Carbon Dioxide BUN Creatinine Glucose POC Glucose 142 H 121 H 141 H Lactic Acid Lactate Dehydrogenase Troponin T C-Reactive Protein NT-Pro-B Natriuret Pep Arterial Blood Glucose Arterial Blood Ionized Calcium Urine Creatinine Urine Total Protein 04/26/21 04/26/21 04/26/21 04:49 05:00 05:40 WBC RBC 3.37 L Hgb 11.1 L Hct 32.6 L MCV 97 H MCH 33 H Plt Count Lymph % (Auto) Lymph # (Auto) Menard # (Auto) Seg Neutrophils % Seg Neutrophils # INR D-Dimer Heparin Anti-Xa Level ABG pH 7.495 H POC ABG pCO2 POC ABG pO2 ABG Hemoglobin 11.6 L ABG Sodium ABG Potassium ABG Glucose 134 H Carboxyhemoglobin Potassium Chloride Carbon Dioxide BUN Creatinine Glucose POC Glucose 127 H Lactic Acid Lactate Dehydrogenase Troponin T C-Reactive Protein NT-Pro-B Natriuret Pep Arterial Blood Glucose 134 H Arterial Blood Ionized Calcium Urine Creatinine Urine Total Protein 04/26/21 04/26/21 04/26/21 08:54 08:54 11:07 WBC RBC Hgb Hct MCV MCH Plt Count Lymph % (Auto) Lymph # (Auto) Menard # (Auto) Seg Neutrophils % Seg Neutrophils # INR D-Dimer Heparin Anti-Xa Level 0.20 L ABG pH POC ABG pCO2 POC ABG pO2 ABG Hemoglobin ABG Sodium ABG Potassium ABG Glucose Carboxyhemoglobin Potassium Chloride Carbon Dioxide BUN 36 H Creatinine 1.7 H Glucose 132 H POC Glucose 128 H Lactic Acid Lactate Dehydrogenase Troponin T C-Reactive Protein NT-Pro-B Natriuret Pep Arterial Blood Glucose Arterial Blood Ionized Calcium Urine Creatinine Urine Total Protein Chest x-ray: other (no focal infiltrate) Allied health notes reviewed: nursing
--- NOTE | 2021-04-26 15:06 | Progress Note ---
<CHARLESKATHRINENola - Last Filed: 04/26/21 15:04> Assessment and Plan Assessment and plan: This is a 65-year-old male with CAD s/p CABG x3, ischemic cardiomyopathy with ejection fraction of 40 to 45%, hypertension, hyperlipidemia, CVA and diabetes who was admitted s/p cardiac arrest, leukocytosis, lactic acidosis, elevated troponin, hypochloremia, metabolic acidosis, acute hypoxic respiratory failure S/p cardiac arrest (NSTEMI) Acute hypoxic respiratory failure Acute kidney injury secondary to vasomotor nephropathy Hyperkalemia ? Brain injury ? Myoclonic jerks/Seizures Lactic acidosis (down trending) Elevated D-dimer CAD s/p CABG x3 Ischemic cardiomyopathy with EF of 40 to 45% Hypertension Hyperlipidemia CVA Diabetes -CCM, neurology, nephrology, cardiology consulted, appreciate recommendations -COVID-19 PCR negative -IV antibiotic -04/23 renal ultrasound shows no evidence of medical renal disease or hydron ephrosis -04/22 echocardiogram shows moderately dilated left ventricle, left ventricular function severely decreased with LVEF of 20 to 25%, borderline concentric left ventricle hypertrophy, mildly dilated left atrium, mild MR, mild AR, mild TR, mild pulmonary hypertension, RVSP is 46 mmHg -04/23 renal calculated at 1.5 suggestive of ATN or prerenal state -04/24 EEG shows is abnormal due to diffuse background slowing noted throughout the recording, excessive beta activity noted bifrontally most likely drug- related, suggestive of possible toxic metabolic encephalopathy, drug effect, possibility of postictal or post anoxic brain injury. -04/24 MRI brain findings consistent with diffuse anoxic injury, large chronic infarct in the right MCA distribution, chronic white matter changes which are nonspecific and consistent with chronic microvascular ischemic disease, no evidence of hemorrhage, mass, mass-effect. -04/24 MRI head shows no acute large vessel occlusion or extra-axial fluid collection -Aspirin, Lipitor -Heparin drip -IV Keppra -Continue home amlodipine, aspirin, Lipitor, Coreg, Plavix, hydralazine, Imdur -S/p 2L NS bolus in ED -s/p IV hydration -Hold home torsemide, lisinopril -Tube feeding -Trend CBC, BMP DVT/GI prophylaxis: SCDs to bilateral lower extremities while in bed, systemic anticoagulation with heparin drip, PPI Disposition: ICU The high probability of a clinically significant, sudden or life threatening deterioration of the [multi] system(s) required my full and direct attention, intervention and personal management. The aggregate critical care time was [35] minutes. This time is in addition to time spent performing reported procedures but includes the following: [x] Data Review and interpretation [x] Patient assessment and monitoring of vital signs [x] Documentation [x] Medication orders and management History Interval history: This is a 65-year-old male with CAD s/p stents and CABG, DM, CVA, diastolic hear t failure, HTN, hypercholesterolemia presented to the emergency department on 04/22 s/p cardiac arrest. Upon arrival of fire department patient was placed in the ED and shocked x2. Upon arrival of EMS patient was found to be in asystole and was given epinephrine x3, Narcan, sodium bicarb x1 and ROSC was achieved. Upon arrival to the emergency department patient again went to cardiac arrest and received 1 round of ACLS with epi nephron x1 and bicarb x1. Work-up in the emergency department revealed leukocytosis, lactic acidosis, elevated troponin, hypochloremia, metabolic acidosis. Patient was admitted to the hospital service with consults to nephrology, cardiology, neurology and [facility]. 04/23: We will hold MOLLY inhibitor and diuretics in setting of DELMI. EEG, MRI, MRV, renal ultrasound, echocardiogram pending Patient sedated with propofol. At the time my examination patient is on assist control tidal volume 450, rate of 26, PEEP of 6 and FiO2 of 30%. Nephrology was consulted given acute kidney injury and neurology. 04/24: Patient's leukocytosis has improved, he has slight hyperkalemia today but his kidney function has worsened to BUN 28/creatinine 2.2 from 14/12.6. Lactic acidosis has improved. Patient had his EEG today and is scheduled for MRI brain and MRA/MRV. This time my examination patient is on assist control tidal volume 450, rate 26, PEEP of 6 and 30% FiO2. Patient is Felicita calculated at 1.5 suggestive of ATN or PNA renal state. Renal ultrasound negative. He has hypokalemia today which will be repleted. 04/25: Patient's leukocytosis has resolved today, patient he is he has hyperchloremia which was repleted. Kidney function has improved. We will remove his Cruz catheter today. [facility] will obtain bilateral Doppler ultrasounds and magnesium. We will discontinue IV fluids. 04/26: Neurology has signed off today, [facility] has spoken to his family who will update us with decision on CODE STATUS/goals of care patient was hypokalemic today which was repleted. Surgery consult will be placed by [facility]. CPAP trial today. Will panculture with next temperature spike. Possible CTA Hospitalist Physical - Constitutional Vitals: Temp Pulse Resp BP Pulse Ox 98.4 F 71 16 144/65 100 04/26/21 11:00 04/26/21 14:09 04/26/21 13:00 04/26/21 14:04/26/21 13:00 General appearance: Present: other (Intubated) - EENT Eyes: Present: scleral icterus. Absent: PERRL - Respiratory Respiratory effort: normal Respiratory: bilateral: diminished - Cardiovascular Rhythm: regular Heart Sounds: Present: S1 & S2. Absent: systolic murmur, diastolic murmur - Extremities Extremities: no ischemia, pulses intact, pulses symmetrical, No edema, normal temperature, normal color Peripheral Pulses: within normal limits - Abdominal General gastrointestinal: soft, non-tender, non-distended, normal bowel sounds - Integumentary Integumentary: Present: warm, dry - Psychiatric Psychiatric: other (not interactive) - Neurologic Neurologic: other (Pupils nonreactive to light, slight gag reflex, no pupillary response to painful stimuli conducted by neurology at bedside) - Allied Health Allied health notes reviewed: nursing, RT HEART Score - HEART Score Troponin: Troponin T 1.020 ng/mL (0.00-0.029) H* D 04/23/21 02:36 Results - Labs CBC & Chem 7: 04/26/21 04:49 04/26/21 08:54 Labs: Laboratory Last Values WBC 9.0 K/mm3 (4.5-11.0) 04/26/21 04:49 RBC 3.37 M/mm3 (3.65-5.03) L 04/26/21 04:49 Hgb 11.1 gm/dl (11.8-15.2) L 04/26/21 04:49 Hct 32.6 % (35.5-45.6) L 04/26/21 04:49 MCV 97 fl (84-94) H 04/26/21 04:49 MCH 33 pg (28-32) H 04/26/21 04:49 MCHC 34 % (32-34) 04/26/21 04:49 RDW 14.7 % (13.2-15.2) 04/26/21 04:49 Plt Count 163 K/mm3 (140-440) 04/26/21 04:49 Lymph % (Auto) 3.6 % (13.4-35.0) L 04/23/21 02:36 Placer % (Auto) 6.7 % (0.0-7.3) 04/23/21 02:36 Eos % (Auto) 0.0 % (0.0-4.3) 04/23/21 02:36 Baso % (Auto) 0.3 % (0.0-1.8) 04/23/21 02:36 Lymph # (Auto) 0.5 K/mm3 (1.2-5.4) L 04/23/21 02:36 Placer # (Auto) 1.0 K/mm3 (0.0-0.8) H 04/23/21 02:36 Eos # (Auto) 0.0 K/mm3 (0.0-0.4) 04/23/21 02:36 Baso # (Auto) 0.0 K/mm3 (0.0-0.1) 04/23/21 02:36 Seg Neutrophils % 89.4 % (40.0-70.0) H 04/23/21 02:36 Seg Neutrophils # 13.0 K/mm3 (1.8-7.7) H 04/23/21 02:36 PT 14.9 Sec. (12.2-14.9) 04/22/21 18:12 INR 1.17 (0.87-1.13) H 04/22/21 18:12 APTT 36.5 Sec. (24.2-36.6) 04/22/21 18:12 D-Dimer 8003.00 ng/mlDDU (0-234) H 04/23/21 08:58 Heparin Anti-Xa Level 0.20 U.I./ml (0.3-0.7) L 04/26/21 08:54 ABG pH 7.495 (7.320-7.450) H 04/26/21 05:00 POC ABG pCO2 35.9 mmHg (32.0-48.0) 04/26/21 05:00 POC ABG pO2 90.8 mmHg (83-108) 04/26/21 05:00 POC ABG HCO3 27.1 04/26/21 05:00 ABG O2 Saturation 97.3 (0-100) 04/26/21 05:00 POC ABG Base Excess 3.8 04/26/21 05:00 ABG Hemoglobin 11.6 (12.0-17.5) L 04/26/21 05:00 ABG Oxyhemoglobin 96.5 (94-98) 04/26/21 05:00 ABG Methemoglobin 0.3 (0.0-1.5) 04/26/21 05:00 ABG Sodium 137.1 mmol/L (136.0-145.0) 04/26/21 05:00 ABG Potassium 4.2 mmol/L (3.40-4.50) 04/26/21 05:00 ABG Chloride 101.0 mmol/L (98-107) 04/26/21 05:00 ABG Glucose 134 mg/dL (65-95) H 04/26/21 05:00 Carboxyhemoglobin 0.5 (0.5-1.5) 04/26/21 05:00 FiO2 % 30.0 04/26/21 05:00 Sodium 137 mmol/L (137-145) 04/26/21 08:54 Potassium 4.1 mmol/L (3.6-5.0) D 04/26/21 08:54 Chloride 100.0 mmol/L (98-107) 04/26/21 08:54 Carbon Dioxide 27 mmol/L (22-30) 04/26/21 08:54 Anion Gap 14 mmol/L 04/26/21 08:54 BUN 36 mg/dL (9-20) H 04/26/21 08:54 Creatinine 1.7 mg/dL (0.8-1.3) H 04/26/21 08:54 Estimated GFR 49 ml/min 04/26/21 08:54 BUN/Creatinine Ratio 21 % 04/26/21 08:54 Glucose 132 mg/dL (75-100) H 04/26/21 08:54 POC Glucose 128 mg/dL (70-105) H 04/26/21 11:07 Lactic Acid 1.40 mmol/L (0.7-2.0) 04/24/21 07:03 Calcium 8.7 mg/dL (8.4-10.2) 04/26/21 08:54 Magnesium 1.90 mg/dL (1.7-2.3) 04/26/21 04:49 Ferritin 185.5 ng/mL (30.0-300.0) 04/23/21 08:58 Lactate Dehydrogenase 546 units/L (91-180) H 04/23/21 08:58 Troponin T 1.020 ng/mL (0.00-0.029) H* D 04/23/21 02:36 C-Reactive Protein 2.20 mg/dL (0.00-1.30) H 04/23/21 08:58 NT-Pro-B Natriuret Pep 2448 pg/mL (0-900) H 04/22/21 18:12 Triglycerides 107 mg/dL (2-149) 04/22/21 18:12 Cholesterol 136 mg/dL (50-199) 04/22/21 18:12 LDL Cholesterol Direct 78 mg/dL (50-130) 04/22/21 18:12 HDL Cholesterol 58 mg/dL (40-59) 04/22/21 18:12 Cholesterol/HDL Ratio 2.34 % 04/22/21 18:12 Procalcitonin 3.46 ng/mL (<0.15) 04/23/21 08:58 Arterial Blood Glucose 134 mg/dL (65-95) H 04/26/21 05:00 Arterial Blood Ionized Calcium 4.6 mg/dL (4.6-5.3) 04/26/21 05:00 Urine Creatinine 90.4 mg/dL (0.1-20.0) H 04/23/21 13:46 Urine Sodium 123 mmol/L 04/23/21 13:46 Urine Total Protein 103 mg/dL (5-11.8) H 04/23/21 13:46 Coronavirus (PCR) Negative (Negative) 04/23/21 Unknown Microbiology: Microbiology 04/22/21 18:25 Peripheral/Venous Blood Culture - Preliminary NO GROWTH AFTER 72 HOURS 04/22/21 18:12 Peripheral/Venous Blood Culture - Preliminary NO GROWTH AFTER 72 HOURS Cruz/IV: Voiding Method Condom Catheter Active Medications - Current Medications Current Medications: Generic Name Dose Route Start Last Admin Trade Name Freq PRN Reason Stop Dose Admin Acetaminophen 650 mg 04/22/21 21:26 Acetaminophen 325 Mg Tab PO Q4H PRN Pain MILD(1-3)/Fever >100.5/GIORDANO Albuterol 2.5 mg 04/22/21 21:26 Albuterol 2.5 Mg/3 Ml Nebu IH Q3HRT PRN Shortness Of Breath Albuterol/Ipratropium 1 ampul 04/23/21 02:00 04/26/21 07:12 Ipratropium/Albuterol Sulfate 3 Ml Ampul.Neb IH 1 ampul Q6HRT SHELTON Administration Amlodipine Besylate 10 mg 04/23/21 10:00 04/26/21 09:21 Amlodipine 10 Mg Tab PO 10 mg QDAY SHELTON Administration Lipase/Protease/Amylase 1 each 04/23/21 09:33 Lipase 10,500/Protease 25,000/Amylase 43,750 (Units) Dr Machado FEEDTUBE PRN PRN For Clogged Feeding Tube Aspirin 325 mg 04/24/21 10:00 04/26/21 09:21 Aspirin 325 Mg Tab PO 325 mg QDAY SHELTON Administration Atorvastatin Calcium 80 mg 04/22/21 22:00 04/25/21 22:09 Atorvastatin 40 Mg Tab PO 80 mg QHS SHELTON Administration Carvedilol 25 mg 04/23/21 08:00 04/26/21 09:23 Carvedilol 25 Mg Tab PO 25 mg DAILY@0800 SHELTON Administration Clopidogrel Bisulfate 75 mg 04/23/21 10:00 04/26/21 09:21 Clopidogrel 75 Mg Tab PO 75 mg QDAY SHELTON Administration Dextrose 0 ml 04/22/21 21:26 Dextrose 50% In Water (25gm) 50 Ml Syringe IV Q30MIN PRN Hypoglycemia Protocol Famotidine 20 mg 04/25/21 10:00 04/26/21 09:21 Famotidine 20 Mg Tab PO 20 mg DAILY SHELTON Administration Heparin Sodium (Porcine) 4,000 unit 04/22/21 21:39 Heparin 10,000 Units/10 Ml Vial 40 unit/kg (4000 unit) IV Q6H PRN Anti-Xa Assay < 0.1 units/ml Hydralazine HCl 10 mg 04/22/21 21:35 04/26/21 02:22 Hydralazine 20 Mg/1 Ml Inj IV 10 mg Q6H PRN Administration htn Hydralazine HCl 50 mg 04/24/21 09:00 04/26/21 14:09 Hydralazine 25 Mg Tab PO 50 mg Q8HR SHELTON Administration Propofol 1,000 mg in 100 mls @ 3 mls/hr 04/22/21 19:00 04/24/21 19:06 Diprivan 10 Mg/Ml IV 0 mcg/kg/min TITR SHELTON 0 mls/hr Titration Protocol 5 MCG/KG/MIN Heparin Sodium/Sodium Chloride 25,000 unit in 500 mls @ 20 mls/hr 04/22/21 22:00 04/26/21 10:34 Heparin/ 0.45% Nacl-25,000 Unit/500 Ml IV 1,100 units/hr TITRATE SHELTON 22 mls/hr Titration Protocol 1,000 UNITS/HR Levetiracetam 750 mg/ Dextrose 107.5 mls @ 400 mls/hr 04/23/21 11:30 04/26/21 09:22 IV 04/26/21 23:59 400 mls/hr Q12HR SHELTON Administration Insulin Human Lispro 0 unit 04/23/21 00:00 04/26/21 11:39 Insulin Lispro 100 Unit/Ml SUB-Q Not Given Q6HR [facility] Protocol Isosorbide Mononitrate 40 mg 04/24/21 09:00 04/26/21 14:09 Isosorbide Mononitrate 20 Mg Tab PO 40 mg Q8HR SHELTON Administration Levetiracetam 750 mg 04/27/21 10:00 Levetiracetam 500 Mg/5 Ml Oral Liqd PO BID SHELTON Lorazepam 2 mg 04/22/21 22:52 04/26/21 05:53 Lorazepam 2 Mg/Ml Vial IV 2 mg Q4H PRN Administration Seizures Nitroglycerin 0.4 mg 04/22/21 21:26 Nitroglycerin 0.4 Mg Tab Subl SL .Q5MIN PRN Chest Pain Ondansetron HCl 4 mg 04/22/21 21:26 Ondansetron 4 Mg/2 Ml Inj IV Q8H PRN Nausea And Vomiting Simple Syrup 15 ml 04/23/21 09:33 Simple Syrup 15 Ml FEEDTUBE PRN PRN Hypoglycemia Simple Syrup 30 ml 04/23/21 09:33 Simple Syrup 15 Ml FEEDTUBE PRN PRN Hypoglycemia Sodium Bicarbonate 325 mg 04/23/21 09:33 Sodium Bicarbonate 325 Mg Tab FEEDTUBE PRN PRN For Clogged Feeding Tube Sodium Chloride 10 ml 04/22/21 22:00 04/26/21 09:22 Sodium Chloride 0.9% 10 Ml Flush Syringe IV 10 ml BID SHELTON Administration Sodium Chloride 10 ml 04/22/21 21:26 Sodium Chloride 0.9% 10 Ml Flush Syringe IV PRN PRN LINE FLUSH Nutrition/Malnutrition Assess - Dietary Evaluation Nutrition/Malnutrition Findings: Nutrition Notes Start: 04/23/21 08:22 Freq: Status: Active Protocol: Document 04/25/21 11:25 (Rec: 04/25/21 11:29 [id number]) Nutrition Notes Initial or Follow up Reassessment Current Diagnosis Diabetes,Hypertension,Heart Failure,Stroke Other Pertinent Diagnosis Cardiac arrest, AMI Current Diet Vital AF 1.2 at 65 ml/hr Labs/Tests K 3.4 BUN 34 Cr 1.9 Pertinent Medications Reviewed Height 6 ft Weight 106.7 kg [place] Body Weight (kg) 80.90 BMI 31.8 Weight Status Obese Subjective/Other Information FU for TF start. Per RN, pt tolerating at 55 ml/hr and will increase per orders. Percent of energy/protein needs met: 100%/73% Burn Absent Trauma Absent GI Symptoms None Current % PO Negligible Minimum of two criteria No physical signs of malnutrition #1 Nutrition Diagnosis Inadequate oral intake Diagnosis Progress(for reassessment Continues documentation) Is patient on ventilator? Yes Is Patient Ambulatory and/or Out of Bed No REE-([facility]-confined to bed) 2272.956 Kcal/Kg value to use for calculation 18 Approximate Energy Requirements Using 1921 kcal/Kg Calculation Used for Recommendations Kcal/kg Additional Notes Protein needs are >161g (>2g IBW) Fluid needs are 1ml/kcal Nutrition Intervention Change Diet Order: Continue Nutrition Support: Vital 1.2 at 65ml/h Flush with 100ml q4h Kcal 1,872 Protein (gm) 117 Fluid (mL) 1,260 Goal #1 Meet at least 70% of kcal and protein needs via TF Anticipated Discharge Needs: Unable to determine at this time Follow-Up By: 04/27/21 Additional Comments FU for TF tolerance <ISSA MORROW - Last Filed: 04/26/21 17:46> History Interval history: This is a 65-year-old male with CAD s/p CABG x3, ischemic cardiomyopathy with ejection fraction of 40 to 45%, hypertension, hyperlipidemia, CVA and diabetes who was admitted s/p cardiac arrest, leukocytosis, lactic acidosis, elevated troponin, hypochloremia, metabolic acidosis, acute hypoxic respiratory failure. Family to make decision on code status/goals of care. I saw and evaluated the patient and discussed with Nurse Practitioner and Hop Grower. . I agree with the findings and the plan of care as documented in the Nurse Practitioner's note. Hospitalist Physical - Constitutional Vitals: Temp Pulse Resp BP Pulse Ox 98.5 F 72 17 132/60 100 04/26/21 16:00 04/26/21 17:21 04/26/21 17:21 04/26/21 17:21 04/26/21 17:21 HEART Score - HEART Score Troponin: Troponin T 1.020 ng/mL (0.00-0.029) H* D 04/23/21 02:36 Results - Labs CBC & Chem 7: 04/26/21 04:49 04/26/21 08:54 Labs: Laboratory Last Values WBC 9.0 K/mm3 (4.5-11.0) 04/26/21 04:49 RBC 3.37 M/mm3 (3.65-5.03) L 04/26/21 04:49 Hgb 11.1 gm/dl (11.8-15.2) L 04/26/21 04:49 Hct 32.6 % (35.5-45.6) L 04/26/21 04:49 MCV 97 fl (84-94) H 04/26/21 04:49 MCH 33 pg (28-32) H 04/26/21 04:49 MCHC 34 % (32-34) 04/26/21 04:49 RDW 14.7 % (13.2-15.2) 04/26/21 04:49 Plt Count 163 K/mm3 (140-440) 04/26/21 04:49 Lymph % (Auto) 3.6 % (13.4-35.0) L 04/23/21 02:36 Placer % (Auto) 6.7 % (0.0-7.3) 04/23/21 02:36 Eos % (Auto) 0.0 % (0.0-4.3) 04/23/21 02:36 Baso % (Auto) 0.3 % (0.0-1.8) 04/23/21 02:36 Lymph # (Auto) 0.5 K/mm3 (1.2-5.4) L 04/23/21 02:36 Placer # (Auto) 1.0 K/mm3 (0.0-0.8) H 04/23/21 02:36 Eos # (Auto) 0.0 K/mm3 (0.0-0.4) 04/23/21 02:36 Baso # (Auto) 0.0 K/mm3 (0.0-0.1) 04/23/21 02:36 Seg Neutrophils % 89.4 % (40.0-70.0) H 04/23/21 02:36 Seg Neutrophils # 13.0 K/mm3 (1.8-7.7) H 04/23/21 02:36 PT 14.9 Sec. (12.2-14.9) 04/22/21 18:12 INR 1.17 (0.87-1.13) H 04/22/21 18:12 APTT 36.5 Sec. (24.2-36.6) 04/22/21 18:12 D-Dimer 8003.00 ng/mlDDU (0-234) H 04/23/21 08:58 Heparin Anti-Xa Level 0.20 U.I./ml (0.3-0.7) L 04/26/21 08:54 ABG pH 7.495 (7.320-7.450) H 04/26/21 05:00 POC ABG pCO2 35.9 mmHg (32.0-48.0) 04/26/21 05:00 POC ABG pO2 90.8 mmHg (83-108) 04/26/21 05:00 POC ABG HCO3 27.1 04/26/21 05:00 ABG O2 Saturation 97.3 (0-100) 04/26/21 05:00 POC ABG Base Excess 3.8 04/26/21 05:00 ABG Hemoglobin 11.6 (12.0-17.5) L 04/26/21 05:00 ABG Oxyhemoglobin 96.5 (94-98) 04/26/21 05:00 ABG Methemoglobin 0.3 (0.0-1.5) 04/26/21 05:00 ABG Sodium 137.1 mmol/L (136.0-145.0) 04/26/21 05:00 ABG Potassium 4.2 mmol/L (3.40-4.50) 04/26/21 05:00 ABG Chloride 101.0 mmol/L (98-107) 04/26/21 05:00 ABG Glucose 134 mg/dL (65-95) H 04/26/21 05:00 Carboxyhemoglobin 0.5 (0.5-1.5) 04/26/21 05:00 FiO2 % 30.0 04/26/21 05:00 Sodium 137 mmol/L (137-145) 04/26/21 08:54 Potassium 4.1 mmol/L (3.6-5.0) D 04/26/21 08:54 Chloride 100.0 mmol/L (98-107) 04/26/21 08:54 Carbon Dioxide 27 mmol/L (22-30) 04/26/21 08:54 Anion Gap 14 mmol/L 04/26/21 08:54 BUN 36 mg/dL (9-20) H 04/26/21 08:54 Creatinine 1.7 mg/dL (0.8-1.3) H 04/26/21 08:54 Estimated GFR 49 ml/min 04/26/21 08:54 BUN/Creatinine Ratio 21 % 04/26/21 08:54 Glucose 132 mg/dL (75-100) H 04/26/21 08:54 POC Glucose 128 mg/dL (70-105) H 04/26/21 11:07 Lactic Acid 1.40 mmol/L (0.7-2.0) 04/24/21 07:03 Calcium 8.7 mg/dL (8.4-10.2) 04/26/21 08:54 Magnesium 1.90 mg/dL (1.7-2.3) 04/26/21 04:49 Ferritin 185.5 ng/mL (30.0-300.0) 04/23/21 08:58 Lactate Dehydrogenase 546 units/L (91-180) H 04/23/21 08:58 Troponin T 1.020 ng/mL (0.00-0.029) H* D 04/23/21 02:36 C-Reactive Protein 2.20 mg/dL (0.00-1.30) H 04/23/21 08:58 NT-Pro-B Natriuret Pep 2448 pg/mL (0-900) H 04/22/21 18:12 Triglycerides 107 mg/dL (2-149) 04/22/21 18:12 Cholesterol 136 mg/dL (50-199) 04/22/21 18:12 LDL Cholesterol Direct 78 mg/dL (50-130) 04/22/21 18:12 HDL Cholesterol 58 mg/dL (40-59) 04/22/21 18:12 Cholesterol/HDL Ratio 2.34 % 04/22/21 18:12 Procalcitonin 3.46 ng/mL (<0.15) 04/23/21 08:58 Arterial Blood Glucose 134 mg/dL (65-95) H 04/26/21 05:00 Arterial Blood Ionized Calcium 4.6 mg/dL (4.6-5.3) 04/26/21 05:00 Urine Creatinine 90.4 mg/dL (0.1-20.0) H 04/23/21 13:46 Urine Sodium 123 mmol/L 04/23/21 13:46 Urine Total Protein 103 mg/dL (5-11.8) H 04/23/21 13:46 Coronavirus (PCR) Negative (Negative) 04/23/21 Unknown Microbiology: Microbiology 04/22/21 18:25 Peripheral/Venous Blood Culture - Preliminary NO GROWTH AFTER 72 HOURS 04/22/21 18:12 Peripheral/Venous Blood Culture - Preliminary NO GROWTH AFTER 72 HOURS Cruz/IV: Voiding Method Condom Catheter Active Medications - Current Medications Current Medications: Generic Name Dose Route Start Last Admin Trade Name Freq PRN Reason Stop Dose Admin Acetaminophen 650 mg 04/22/21 21:26 Acetaminophen 325 Mg Tab PO Q4H PRN Pain MILD(1-3)/Fever >100.5/GIORDANO Albuterol 2.5 mg 04/22/21 21:26 Albuterol 2.5 Mg/3 Ml Nebu IH Q3HRT PRN Shortness Of Breath Albuterol/Ipratropium 1 ampul 04/23/21 02:00 04/26/21 16:30 Ipratropium/Albuterol Sulfate 3 Ml Ampul.Neb IH 1 ampul Q6HRT SHELTON Administration Amlodipine Besylate 10 mg 04/23/21 10:00 04/26/21 09:21 Amlodipine 10 Mg Tab PO 10 mg QDAY SHELTON Administration Lipase/Protease/Amylase 1 each 04/23/21 09:33 Lipase 10,500/Protease 25,000/Amylase 43,750 (Units) Dr Machado FEEDTUBE PRN PRN For Clogged Feeding Tube Aspirin 325 mg 04/24/21 10:00 04/26/21 09:21 Aspirin 325 Mg Tab PO 325 mg QDAY SHELTON Administration Atorvastatin Calcium 80 mg 04/22/21 22:00 04/25/21 22:09 Atorvastatin 40 Mg Tab PO 80 mg QHS SHELTON Administration Carvedilol 25 mg 04/23/21 08:00 04/26/21 09:23 Carvedilol 25 Mg Tab PO 25 mg DAILY@0800 SHELTON Administration Clopidogrel Bisulfate 75 mg 04/23/21 10:00 04/26/21 09:21 Clopidogrel 75 Mg Tab PO 75 mg QDAY SHELTON Administration Dextrose 0 ml 04/22/21 21:26 Dextrose 50% In Water (25gm) 50 Ml Syringe IV Q30MIN PRN Hypoglycemia Protocol Famotidine 20 mg 04/25/21 10:00 04/26/21 09:21 Famotidine 20 Mg Tab PO 20 mg DAILY SHELTON Administration Heparin Sodium (Porcine) 4,000 unit 04/22/21 21:39 Heparin 10,000 Units/10 Ml Vial 40 unit/kg (4000 unit) IV Q6H PRN Anti-Xa Assay < 0.1 units/ml Hydralazine HCl 10 mg 04/22/21 21:35 04/26/21 02:22 Hydralazine 20 Mg/1 Ml Inj IV 10 mg Q6H PRN Administration htn Hydralazine HCl 50 mg 04/24/21 09:00 04/26/21 14:09 Hydralazine 25 Mg Tab PO 50 mg Q8HR SHELTON Administration Propofol 1,000 mg in 100 mls @ 3 mls/hr 04/22/21 19:00 04/24/21 19:06 Diprivan 10 Mg/Ml IV 0 mcg/kg/min TITR SHELTON 0 mls/hr Titration Protocol 5 MCG/KG/MIN Heparin Sodium/Sodium Chloride 25,000 unit in 500 mls @ 20 mls/hr 04/22/21 22:00 04/26/21 10:34 Heparin/ 0.45% Nacl-25,000 Unit/500 Ml IV 1,100 units/hr TITRATE SHELTON 22 mls/hr Titration Protocol 1,000 UNITS/HR Levetiracetam 750 mg/ Dextrose 107.5 mls @ 400 mls/hr 04/23/21 11:30 04/26/21 09:22 IV 04/26/21 23:59 400 mls/hr Q12HR SHELTON Administration Insulin Human Lispro 0 unit 04/23/21 00:00 04/26/21 11:39 Insulin Lispro 100 Unit/Ml SUB-Q Not Given Q6HR [facility] Protocol Isosorbide Mononitrate 40 mg 04/24/21 09:00 04/26/21 14:09 Isosorbide Mononitrate 20 Mg Tab PO 40 mg Q8HR SHELTON Administration Levetiracetam 750 mg 04/27/21 10:00 Levetiracetam 500 Mg/5 Ml Oral Liqd PO BID [facility] Lorazepam 2 mg 04/22/21 22:52 04/26/21 05:53 Lorazepam 2 Mg/Ml Vial IV 2 mg Q4H PRN Administration Seizures Nitroglycerin 0.4 mg 04/22/21 21:26 Nitroglycerin 0.4 Mg Tab Subl SL .Q5MIN PRN Chest Pain Ondansetron HCl 4 mg 04/22/21 21:26 Ondansetron 4 Mg/2 Ml Inj IV Q8H PRN Nausea And Vomiting Simple Syrup 15 ml 04/23/21 09:33 Simple Syrup 15 Ml FEEDTUBE PRN PRN Hypoglycemia Simple Syrup 30 ml 04/23/21 09:33 Simple Syrup 15 Ml FEEDTUBE PRN PRN Hypoglycemia Sodium Bicarbonate 325 mg 04/23/21 09:33 Sodium Bicarbonate 325 Mg Tab FEEDTUBE PRN PRN For Clogged Feeding Tube Sodium Chloride 10 ml 04/22/21 22:00 04/26/21 09:22 Sodium Chloride 0.9% 10 Ml Flush Syringe IV 10 ml BID [place] Administration Sodium Chloride 10 ml 04/22/21 21:26 Sodium Chloride 0.9% 10 Ml Flush Syringe IV PRN PRN LINE FLUSH Nutrition/Malnutrition Assess - Dietary Evaluation Nutrition/Malnutrition Findings: Nutrition Notes Start: 04/23/21 08:22 Freq: Status: Active Protocol: Document 04/25/21 11:25 (Rec: 04/25/21 11:29 [email or web address]) Nutrition Notes Initial or Follow up Reassessment Current Diagnosis Diabetes,Hypertension,Heart Failure,Stroke Other Pertinent Diagnosis Cardiac arrest, AMI Current Diet Vital AF 1.2 at 65 ml/hr Labs/Tests K 3.4 BUN 34 Cr 1.9 Pertinent Medications Reviewed Height 6 ft Weight 106.7 kg [place] Body Weight (kg) 80.90 BMI 31.8 Weight Status Obese Subjective/Other Information FU for TF start. Per RN, pt tolerating at 55 ml/hr and will increase per orders. Percent of energy/protein needs met: 100%/73% Burn Absent Trauma Absent GI Symptoms None Current % PO Negligible Minimum of two criteria No physical signs of malnutrition #1 Nutrition Diagnosis Inadequate oral intake Diagnosis Progress(for reassessment Continues documentation) Is patient on ventilator? Yes Is Patient Ambulatory and/or Out of Bed No REE-([place] [facility]-confined to bed) 2272.956 Kcal/Kg value to use for calculation 18 Approximate Energy Requirements Using 1921 kcal/Kg Calculation Used for Recommendations Kcal/kg Additional Notes Protein needs are >161g (>2g IBW) Fluid needs are 1ml/kcal Nutrition Intervention Change Diet Order: Continue Nutrition Support: Vital 1.2 at 65ml/h Flush with 100ml q4h Kcal 1,872 Protein (gm) 117 Fluid (mL) 1,260 Goal #1 Meet at least 70% of kcal and protein needs via TF Anticipated Discharge Needs: Unable to determine at this time Follow-Up By: 04/27/21 Additional Comments FU for TF tolerance
--- NOTE | 2021-04-26 15:13 | Event Note ---
Date: 04/26/21 Consult noted for trach and PEG Will evaluate pt tomorrow and discuss treatment and plan with my partner Dr. Ross since I do not perform tracheostomy.
--- NOTE | 2021-04-26 15:41 | XRay Report ---
CHEST 1 VIEW 04/26/2021 2:03 PM INDICATION / CLINICAL INFORMATION: Pneumonia. COMPARISON: None available. FINDINGS: There is increased opacity in left lower lung with left effusion. Heart is enlarged with prior sterno everardo. ET tube and NG tube are satisfactory in position. IMPRESSION: 1. Left lower lung opacity and effusion. Signer Name: Juan Francisco Brothers MD Signed: 04/26/2021 3:36 PM Workstation Name: [id number]
[2021-04-27] MEDS: HEPARIN/ 0.45% NACL DRIP 25,000 UNIT/500 ML BAG IV SCH (00:09)
[2021-04-27] MEDS: IPRATROPIUM/ALBUTEROL SULFATE 3 ML AMPUL.NEB IH SCH ×4 (03:32→19:41)
[2021-04-27 05:53] LABS: BUN/Creatinine Ratio 29; Blood Urea Nitrogen 40 mg/dL (9-20); Calcium 8.9 mg/dL (8.4-10.2); Hemolysis Index 74
[2021-04-27] MEDS: INSULIN LISPRO 100 UNIT/ML SUB-Q SCH ×5 (06:18→23:05)
[2021-04-27] MEDS: hydrALAZINE 25 MG TAB PO SCH (06:37)
[2021-04-27] MEDS ORDERED: hydrALAZINE 25 MG TAB PO SCH (08:52)
[2021-04-27] MEDS: levETIRAcetam 500 MG/5 ML ORAL LIQD PO SCH ×2 (09:25→23:16)
[2021-04-27] MEDS: amLODIPine 10 MG TAB PO SCH (09:25)
[2021-04-27] MEDS: CLOPIDOGREL 75 MG TAB PO SCH (09:26)
[2021-04-27] MEDS: carvediloL 25 MG TAB PO SCH (09:26)
[2021-04-27] MEDS: ASPIRIN 325 MG TAB PO SCH (09:26)
[2021-04-27] MEDS: FAMOTIDINE 20 MG TAB PO SCH (09:26)
--- NOTE | 2021-04-27 09:56 | Consultation ---
History of Present Illness Consult date: 04/27/21 Chief complaint: vent - History of present illness History of present illness: 65-year-old male with history of CAD, cardiac stents, CABG, diabetes, CHF who presented to the emergency room on 04/23/2021. Patient was found to be in cardiac arrest. Patient is currently intubated and unresponsive on the vent. All the history is obtained from the chart. Apparently the patient collapsed in the field and no bystander CPR was performed. BLS formed in the field and upon arrival patient was in asystole. ACLS protocol was instituted and there was return of spontaneous circulation. Patient was intubated. Patient remains on the ventilator and is unable to be weaned. Neurologic work-up revealed anoxic brain injury with very poor prognosis, no chance of meaningful recovery per neurology notes. Surgery is consulted for tracheostomy and PEG tube placement. Past History Past Medical History: CAD, diabetes, heart failure (Ejection fraction 40 to 45%), hypertension, hyperlipidemia, stroke Past Surgical History: CABG Social history: other (Unable to obtain) Family history: other (Unable to obtain) Medications and Allergies Allergies Allergy/AdvReac Type Severity Reaction Status Date / Time hydrocodone Allergy Unknown Unknown Verified 05/29/19 17:35 acetaminophen [From Percocet] Allergy Unknown Verified 12/22/20 15:37 Iodinated Contrast Media Allergy Itching Verified 12/22/20 15:37 [Iodinated Contrast Media - IV Dye] oxycodone [From Percocet] Allergy Unknown Verified 12/22/20 15:37 Home Medications Medication Instructions Recorded Confirmed Last Taken Type Aspirin [Aspirin BABY CHEW TAB] 81 mg PO QDAY #30 tab.chew 10/04/18 04/25/21 07/19/19 Rx Clopidogrel [Plavix] 75 mg PO QDAY #30 tablet 10/04/18 04/25/21 07/19/19 Rx amLODIPine 10 mg PO QDAY #30 tablet 10/04/18 04/25/21 07/19/19 Rx carvediloL [Coreg] 25 mg PO DAILY #30 tablet 10/04/18 04/25/21 07/19/19 Rx hydrALAZINE [Apresoline TAB] 25 mg PO TID #90 tablet 10/04/18 04/25/21 07/19/19 Rx ISOSORBIDE MONOnitrate [Imdur ER] 60 mg PO BID 05/28/19 04/25/21 07/19/19 History Potassium Chloride [K-Dur] 10 meq PO QDAY 05/28/19 04/25/21 07/19/19 History lisinopriL [Zestril TAB] 5 mg PO QDAY 05/28/19 04/25/21 07/19/19 History raNITIdine HCl [Zantac] 300 mg PO BID 05/28/19 04/25/21 07/19/19 History risperiDONE [RisperDAL] 0.5 mg PO BID 05/28/19 04/25/21 07/19/19 History AtorvaSTATin [Lipitor] 80 mg PO QHS tablet 05/30/19 04/25/21 07/19/19 Rx Nitroglycerin [Nitrostat] 0.4 mg SL .Q5MIN PRN #60 tab 12/08/19 04/25/21 Unknown Rx Ranolazine ER [Ranexa ER] 1,000 mg PO BID #60 tablet 12/08/19 04/25/21 Unknown Rx Temazepam 30 mg PO QHS #7 capsule 12/08/19 04/25/21 Unknown Rx Torsemide [Demadex] 40 mg PO BID #60 12/08/19 04/25/21 Unknown Rx Active Meds: Active Medications Acetaminophen (Acetaminophen 325 Mg Tab) 650 mg PO Q4H PRN PRN Reason: Pain MILD(1-3)/Fever >100.5/GIORDANO Albuterol (Albuterol 2.5 Mg/3 Ml Nebu) 2.5 mg IH Q3HRT PRN PRN Reason: Shortness Of Breath Albuterol/Ipratropium (Ipratropium/Albuterol Sulfate 3 Ml Ampul.Neb) 1 ampul IH Q6HRT [facility] Last Admin: 04/27/21 07:21 Dose: 1 ampul Documented by: Amlodipine Besylate (Amlodipine 10 Mg Tab) 10 mg PO QDAY [facility] Last Admin: 04/27/21 09:25 Dose: 10 mg Documented by: Lipase/Protease/Amylase (Lipase 10,500/Protease 25,000/Amylase 43,750 (Units) Dr Machado) 1 each FEEDTUBE PRN PRN PRN Reason: For Clogged Feeding Tube Aspirin (Aspirin 325 Mg Tab) 325 mg PO QDAY [facility] Last Admin: 04/27/21 09:26 Dose: 325 mg Documented by: Atorvastatin Calcium (Atorvastatin 40 Mg Tab) 80 mg PO QHS [facility] Last Admin: 04/26/21 22:16 Dose: 80 mg Documented by: Carvedilol (Carvedilol 25 Mg Tab) 25 mg PO DAILY@0800 [facility] Last Admin: 04/27/21 09:26 Dose: 25 mg Documented by: Clopidogrel Bisulfate (Clopidogrel 75 Mg Tab) 75 mg PO QDAY [facility] Last Admin: 04/27/21 09:26 Dose: 75 mg Documented by: Dextrose (Dextrose 50% In Water (25gm) 50 Ml Syringe) 0 ml IV Q30MIN PRN; Protocol PRN Reason: Hypoglycemia Famotidine (Famotidine 20 Mg Tab) 20 mg PO DAILY [facility] Last Admin: 04/27/21 09:26 Dose: 20 mg Documented by: Heparin Sodium (Porcine) (Heparin 10,000 Units/10 Ml Vial) 4,000 unit 40 unit/kg (4000 unit) IV Q6H PRN PRN Reason: Anti-Xa Assay < 0.1 units/ml Hydralazine HCl (Hydralazine 20 Mg/1 Ml Inj) 10 mg IV Q6H PRN PRN Reason: htn Last Admin: 04/26/21 02:22 Dose: 10 mg Documented by: Hydralazine HCl (Hydralazine 100 Mg Tab) 100 mg PO Q8HR [facility] Propofol (Diprivan 10 Mg/Ml) 1,000 mg in 100 mls @ 3 mls/hr IV TITR [facility]; Protocol Last Titration: 04/24/21 19:06 Dose: 0 mcg/kg/min, 0 mls/hr Documented by: Heparin Sodium/Sodium Chloride (Heparin/ 0.45% Nacl-25,000 Unit/500 Ml) 25,000 unit in 500 mls @ 20 mls/hr IV TITRATE [facility]; Protocol Last Admin: 04/27/21 00:09 Dose: 1,100 units/hr, 22 mls/hr Documented by: Insulin Human Lispro (Insulin Lispro 100 Unit/Ml) 0 unit SUB-Q Q6HR [facility]; Protoc ol Last Admin: 04/27/21 06:18 Dose: Not Given Documented by: Isosorbide Mononitrate (Isosorbide Mononitrate 20 Mg Tab) 40 mg PO Q8HR [facility] Last Admin: 04/27/21 06:37 Dose: 40 mg Documented by: Levetiracetam (Levetiracetam 500 Mg/5 Ml Oral Liqd) 750 mg PO BID [facility] Last Admin: 04/27/21 09:25 Dose: 750 mg Documented by: Lorazepam (Lorazepam 2 Mg/Ml Vial) 2 mg IV Q4H PRN PRN Reason: Seizures Last Admin: 04/26/21 05:53 Dose: 2 mg Documented by: Nitroglycerin (Nitroglycerin 0.4 Mg Tab Subl) 0.4 mg SL .Q5MIN PRN PRN Reason: Chest Pain Ondansetron HCl (Ondansetron 4 Mg/2 Ml Inj) 4 mg IV Q8H PRN PRN Reason: Nausea And Vomiting Simple Syrup (Simple Syrup 15 Ml) 15 ml FEEDTUBE PRN PRN PRN Reason: Hypoglycemia Simple Syrup (Simple Syrup 15 Ml) 30 ml FEEDTUBE PRN PRN PRN Reason: Hypoglycemia Sodium Bicarbonate (Sodium Bicarbonate 325 Mg Tab) 325 mg FEEDTUBE PRN PRN PRN Reason: For Clogged Feeding Tube Sodium Chloride (Sodium Chloride 0.9% 10 Ml Flush Syringe) 10 ml IV BID [facility] Last Admin: 04/27/21 09:25 Dose: 10 ml Documented by: Sodium Chloride (Sodium Chloride 0.9% 10 Ml Flush Syringe) 10 ml IV PRN PRN PRN Reason: LINE FLUSH Review of Systems ROS unobtainable: due to endotracheal tube, due to mental status Exam Vital Signs Pulse Resp BP Pulse Ox 120 H 30 H 144/83 100 04/22/21 17:52 04/22/21 17:52 04/22/21 17:52 04/22/21 17:52 Narrative exam: Gen.: Intubated. Unresponsive on vent. Does not respond to commands or move extremities. ENT: Trachea midline. No lymphadenopathy. ET tube and NG tube in place. Tube feeds running. CV: S1, S2 present Respiratory: No audible wheezes Abdomen: Soft, nondistended, nontender. There are well-healed midline surgical scars. Extremities: No clubbing, cyanosis, edema Results - Labs 04/26/21 04:49 04/27/21 05:01 Abnormal lab results 04/26/21 04/26/21 04/26/21 Range/Units 11:07 18:22 23:30 BUN (9-20) mg/dL Creatinine (0.8-1.3) mg/dL Glucose (75-100) mg/dL POC Glucose 128 H 136 H 147 H (70-105) mg/dL 04/27/21 04/27/21 Range/Units 05:01 05:32 BUN 40 H (9-20) mg/dL Creatinine 1.4 H (0.8-1.3) mg/dL Glucose 125 H (75-100) mg/dL POC Glucose 137 H (70-105) mg/dL Diabetes panel 04/27/21 Range/Units 05:01 Sodium 138 (137-145) mmol/L Potassium 4.5 (3.6-5.0) mmol/L Chloride 99.2 (98-107) mmol/L Carbon Dioxide 29 (22-30) mmol/L BUN 40 H (9-20) mg/dL Creatinine 1.4 H (0.8-1.3) mg/dL Glucose 125 H (75-100) mg/dL Calcium 8.9 (8.4-10.2) mg/dL Calcium panel 04/27/21 Range/Units 05:01 Calcium 8.9 (8.4-10.2) mg/dL Pituitary panel 04/27/21 Range/Units 05:01 Sodium 138 (137-145) mmol/L Potassium 4.5 (3.6-5.0) mmol/L Chloride 99.2 (98-107) mmol/L Carbon Dioxide 29 (22-30) mmol/L BUN 40 H (9-20) mg/dL Creatinine 1.4 H (0.8-1.3) mg/dL Glucose 125 H (75-100) mg/dL Calcium 8.9 (8.4-10.2) mg/dL Adrenal panel 04/27/21 Range/Units 05:01 Sodium 138 (137-145) mmol/L Potassium 4.5 (3.6-5.0) mmol/L Chloride 99.2 (98-107) mmol/L Carbon Dioxide 29 (22-30) mmol/L BUN 40 H (9-20) mg/dL Creatinine 1.4 H (0.8-1.3) mg/dL Glucose 125 H (75-100) mg/dL Calcium 8.9 (8.4-10.2) mg/dL - Imaging Chest x-ray: report reviewed, image reviewed Abdominal x-ray: report reviewed, image reviewed Additional studies: MRI/MRA head report reviewed Assessment and Plan 65-year-old male with diffuse anoxic brain injury, ventilator dependent respiratory failure Plan: Patient with very poor prognosis and no chance of meaningful neurologic recovery per neuro notes. Will discuss trach/peg with patient's NOK who his Oliver Suazo (spouse) per chart. I called Mrs. Suazo x2 at and phone goes straight to and unable to leave message. Will continue to try and reach NOK. If family wants to proceed with trach/PEG, plavix needs to be held for 5 days and hepgtt 6 hours prior to surgery. Discussed with CLINICAL EDUCATION SPECIALIST Jacki and patient's RN. Thank you, please call with questions.
[2021-04-27] MEDS: hydrALAZINE 100 MG TAB PO SCH ×3 (10:45→23:15)
--- NOTE | 2021-04-27 11:46 | Progress Note ---
Assessment and Plan - Patient Problems (1) Acute respiratory failure Current Visit: Yes Status: Acute (2) Cardiac arrest Current Visit: Yes Status: Acute (3) Encephalopathy Current Visit: Yes Status: Acute (4) Hypertensive emergency Current Visit: Yes Status: Acute Subjective Date of service: 04/27/21 Principal diagnosis: Cardiac; DELMI; Ac hypoxemic resp failure; Ac Encephalopathy; HFrEF; DM II Interval history: UNRESPONSIVE Objective Vital Signs Temp Pulse Pulse Pulse Resp Resp BP 04/27/21 11:43 97.6 F 04/27/21 11:22 72 158/69 04/27/21 11:01 73 22 182/83 04/27/21 10:45 72 20 158/69 04/27/21 10:30 72 20 158/69 04/27/21 10:15 74 25 H 153/76 04/27/21 10:00 74 24 151/69 04/27/21 09:45 85 23 158/78 04/27/21 09:30 77 23 153/76 04/27/21 09:26 87 158/78 04/27/21 09:25 87 158/78 04/27/21 09:16 78 24 158/78 04/27/21 09:00 78 25 H 158/78 04/27/21 08:45 80 23 185/89 04/27/21 08:31 88 20 185/89 04/27/21 08:15 86 21 162/75 04/27/21 08:00 75 24 162/75 04/27/21 07:45 74 28 H 153/73 04/27/21 07:30 83 19 153/73 04/27/21 07:21 74 76 19 153/72 04/27/21 07:15 73 18 153/72 04/27/21 07:01 73 22 153/72 04/27/21 07:00 97.4 F L 04/27/21 06:45 73 21 126/69 04/27/21 06:37 71 126/69 04/27/21 06:30 72 19 126/69 04/27/21 06:15 72 15 130/70 04/27/21 06:00 72 20 130/70 04/27/21 05:45 83 18 132/72 04/27/21 05:31 83 20 132/72 04/27/21 05:15 74 18 139/67 04/27/21 05:00 75 19 139/67 /03/14 04:45 75 21 146/70 /03/14 04:30 75 17 146/70 04/27/21 04:23 74 139/69 06/03/14 04:15 72 18 139/69 04/27/21 04:00 74 78 16 139/69 /03/14 03:45 73 19 139/66 04/27/21 03:33 77 19 06 03:30 77 19 139/66 /03/14 03:24 98.8 F 04/27/21 03:15 74 20 139/66 /03/14 03:00 75 19 139/66 04/27/21 02:45 76 18 142/66 04/27/21 02:30 76 20 142/66 04/27/21 02:15 78 19 133/67 04/27/21 02:00 77 19 133/67 04/27/21 01:45 85 18 149/69 04/27/21 01:30 82 18 149/69 04/27/21 01:15 75 14 144/69 04/27/21 01:00 80 14 144/69 04/27/21 00:45 79 21 143/65 04/27/21 00:30 78 21 143/65 04/27/21 00:15 83 24 144/67 04/27/21 00:00 98.1 F 76 78 20 144/67 04/26/21 23:57 78 150/69 /02/11 23:45 77 22 150/69 /02/11 23:31 78 21 150/69 /03 23:21 78 20 140/64 06/03 23:15 77 18 140/64 /02/11 23:00 78 19 140/64 06/03 22:45 78 20 135/66 /03 22:30 79 18 125/71 03 22:16 77 135/66 06/03 22:15 81 21 137/63 06/03/21 22:00 76 19 135/66 /21 21:45 77 22 137/63 06/03/21 21:30 78 22 137/63 06/0321 21:15 76 19 141/59 /03 21:00 79 21 141/59 06/03/21 20:45 79 20 136/63 /02/11 20:30 80 22 136/63 04/26/21 20:15 81 20 134/64 04/26/21 20:00 79 78 20 134/63 04/26/21 19:53 98.1 F 04/26/21 19:45 80 20 146/65 04/26/21 19:30 80 81 27 H 20 134/64 04/26/21 19:23 80 146/65 04/26/21 19:15 81 21 146/65 04/26/21 19:00 81 20 146/65 04/26/21 18:45 80 30 H 138/64 04/26/21 18:30 82 30 H 138/64 04/26/21 18:21 81 29 H 130/64 04/26/21 18:11 81 29 H 130/64 04/26/21 18:00 80 29 H 130/64 04/26/21 17:51 75 29 H 145/68 04/26/21 17:41 81 29 H 145/68 04/26/21 17:30 80 25 H 145/68 04/26/21 17:21 72 17 132/60 04/26/21 17:11 79 28 H 132/60 04/26/21 17:00 78 27 H 132/60 04/26/21 16:51 80 28 H 127/61 04/26/21 16:41 84 24 127/61 04/26/21 16:31 78 20 04/26/21 16:30 78 26 H 127/61 04/26/21 16:21 80 26 H 143/67 04/26/21 16:11 81 27 H 143/67 04/26/21 16:00 98.5 F 82 24 143/67 04/26/21 15:51 83 28 H 148/74 04/26/21 15:41 86 23 148/74 04/26/21 15:30 81 21 148/74 04/26/21 15:21 74 23 137/63 04/26/21 15:11 75 22 137/63 04/26/21 15:00 75 22 137/63 04/26/21 14:51 72 18 145/69 04/26/21 14:41 72 17 145/69 04/26/21 14:30 71 17 145/69 06/03/21 14:21 68 15 144/65 04/26/21 14:11 70 17 144/65 04/26/21 14:09 71 144/65 04/26/21 14:01 67 17 144/65 04/26/21 13:51 70 17 148/66 04/26/21 13:41 70 17 148/66 04/26/21 13:30 69 16 148/66 04/26/21 13:21 70 17 144/66 04/26/21 13:11 71 16 144/66 04/26/21 13:00 71 16 144/66 04/26/21 12:51 71 17 142/65 04/26/21 12:41 70 16 142/65 04/26/21 12:30 72 18 142/65 04/26/21 12:21 72 18 135/68 04/26/21 12:11 73 18 135/68 04/26/21 12:00 75 17 135/68 04/26/21 11:54 77 145/67 04/26/21 11:51 73 18 136/63 Pulse Ox 04/27/21 11:43 04/27/21 11:22 99 04/27/21 11:01 100 04/27/21 10:45 99 04/27/21 10:30 99 04/27/21 10:15 98 04/27/21 10:00 98 04/27/21 09:45 98 04/27/21 09:30 98 04/27/21 09:26 04/27/21 09:25 04/27/21 09:16 98 04/27/21 09:00 98 04/27/21 08:45 98 04/27/21 08:31 99 04/27/21 08:15 98 04/27/21 08:00 98 04/27/21 07:45 97 04/27/21 07:30 100 04/27/21 07:21 98 04/27/21 07:15 98 04/27/21 07:01 97 04/27/21 07:00 04/27/21 06:45 97 04/27/21 06:37 04/27/21 06:30 99 04/27/21 06:15 99 04/27/21 06:00 99 04/27/21 05:45 99 04/27/21 05:31 99 04/27/21 05:15 99 04/27/21 05:00 99 04/27/21 04:45 98 04/27/21 04:30 99 04/27/21 04:23 98 04/27/21 04:15 100 04/27/21 04:00 100 04/27/21 03:45 100 04/27/21 03:33 04/27/21 03:30 98 04/27/21 03:24 04/27/21 03:15 99 04/27/21 03:00 98 04/27/21 02:45 98 04/27/21 02:30 98 04/27/21 02:15 98 04/27/21 02:00 98 04/27/21 01:45 98 04/27/21 01:30 98 04/27/21 01:15 98 04/27/21 01:00 98 04/27/21 00:45 97 04/27/21 00:30 97 04/27/21 00:15 98 04/27/21 00:00 98 04/26/21 23:57 98 04/26/21 23:45 98 04/26/21 23:31 98 04/26/21 23:21 98 04/26/21 23:15 98 04/26/21 23:00 98 04/26/21 22:45 98 04/26/21 22:30 98 04/26/21 22:16 04/26/21 22:15 98 04/26/21 22:00 98 04/26/21 21:45 97 04/26/21 21:30 97 04/26/21 21:15 98 04/26/21 21:00 97 04/26/21 20:45 98 04/26/21 20:30 98 04/26/21 20:15 97 04/26/21 20:00 100 04/26/21 19:53 04/26/21 19:45 100 04/26/21 19:30 100 04/26/21 19:23 97 04/26/21 19:15 98 04/26/21 19:00 98 04/26/21 18:45 97 04/26/21 18:30 97 04/26/21 18:21 97 04/26/21 18:11 97 04/26/21 18:00 96 04/26/21 17:51 96 04/26/21 17:41 97 04/26/21 17:30 96 04/26/21 17:21 100 04/26/21 17:11 99 04/26/21 17:00 99 04/26/21 16:51 99 04/26/21 16:41 99 04/26/21 16:31 04/26/21 16:30 98 04/26/21 16:21 98 04/26/21 16:11 96 04/26/21 16:00 98 04/26/21 15:51 04/26/21 15:41 99 04/26/21 15:30 100 04/26/21 15:21 04/26/21 15:11 99 04/26/21 15:00 100 04/26/21 14:51 99 04/26/21 14:41 99 04/26/21 14:30 99 04/26/21 14:21 99 04/26/21 14:11 100 04/26/21 14:09 04/26/21 14:01 100 04/26/21 13:51 100 04/26/21 13:41 100 04/26/21 13:30 100 04/26/21 13:21 04/26/21 13:11 100 04/26/21 13:00 04/26/21 12:51 04/26/21 12:41 100 04/26/21 12:30 100 04/26/21 12:21 100 04/26/21 12:11 04/26/21 12:00 100 04/26/21 11:54 100 04/26/21 11:51 100 - Physical Examination General: Other (Unresponsive, on the vent) HEENT: Positive: Other (Pupils fixed) Neck: Positive: neck supple Cardiac: Positive: Reg Rate and Rhythm Lungs: Positive: Rhonchi Neuro: Positive: Other (Unresponsive, on the vent) Abdomen: Positive: Soft, Active Bowel Sounds Skin: Positive: Clear Extremities: Absent: edema - Labs and Meds Comprehensive Metabolic Panel 04/27/21 Range/Units 05:01 Sodium 138 (137-145) mmol/L Potassium 4.5 (3.6-5.0) mmol/L Chloride 99.2 (98-107) mmol/L Carbon Dioxide 29 (22-30) mmol/L BUN 40 H (9-20) mg/dL Creatinine 1.4 H (0.8-1.3) mg/dL Glucose 125 H (75-100) mg/dL Calcium 8.9 (8.4-10.2) mg/dL - Allied health notes Allied health notes reviewed: nursing
--- NOTE | 2021-04-27 13:30 | Progress Note ---
Assessment and Plan - Patient Problems (1) Acute kidney injury (DELMI) with acute tubular necrosis (ATN) Current Visit: Yes Status: Acute Plan to address problem: Acute kidney injury acute tubular necrosis secondary to hypotension status post cardiac arrest, kidney indices are stabilizeing , pt remains non-oliguric. Renal US showed no evidence of hydro/medical renal disease. cont supportive care for ATN avoid further nephrotoxins, NSAIDs IV contrast. maintain MAP > 65mmhg (2) Acute respiratory failure Current Visit: Yes Status: Acute Plan to address problem: Continue ventilator management per pulmonary. (3) Hypertensive emergency Current Visit: Yes Status: Acute Plan to address problem: Oral antihypertensive medications been resumed. Will need to continue intravenous drip if blood pressure still not controlled (4) Type 2 diabetes mellitus Current Visit: Yes Status: Chronic Plan to address problem: Blood sugar control by primary attending (5) History of CVA (cerebrovascular accident) Current Visit: No Status: Chronic Plan to address problem: follow neurology recommendations (6) Encephalopathy Current Visit: Yes Status: Acute Plan to address problem: due to hypoxic ischemic encephalopathy. Subjective Date of service: 04/27/21 Principal diagnosis: Cardiac; DELMI; Ac hypoxemic resp failure; Ac Encephalopathy; HFrEF; DM II Interval history: Pt remains intubated, unresponsive off sedation Objective - Vital Signs Vital signs: Vital Signs - 12hr 04/27/21 04/27/21 04/27/21 01:45 02:00 02:15 Temperature Pulse Rate 85 77 78 Pulse Rate [ Bilateral Throughout] Pulse Rate [ From Monitor] Respiratory 18 19 19 Rate Respiratory Rate [Bilateral Throughout] Blood Pressure 149/69 133/67 133/67 O2 Sat by Pulse 98 98 98 Oximetry 04/27/21 04/27/21 04/27/21 02:30 02:45 03:00 Temperature Pulse Rate 76 76 75 Pulse Rate [ Bilateral Throughout] Pulse Rate [ From Monitor] Respiratory 20 18 19 Rate Respiratory Rate [Bilateral Throughout] Blood Pressure 142/66 142/66 139/66 O2 Sat by Pulse 98 98 98 Oximetry 04/27/21 04/27/21 04/27/21 03:15 03:24 03:30 Temperature 98.8 F Pulse Rate 74 77 Pulse Rate [ Bilateral Throughout] Pulse Rate [ From Monitor] Respiratory 20 19 Rate Respiratory Rate [Bilateral Throughout] Blood Pressure 139/66 139/66 O2 Sat by Pulse 99 98 Oximetry 04/27/21 04/27/21 04/27/21 03:33 03:45 04:00 Temperature Pulse Rate 73 74 Pulse Rate [ 77 Bilateral Throughout] Pulse Rate [ 78 From Monitor] Respiratory 19 16 Rate Respiratory 19 Rate [Bilateral Throughout] Blood Pressure 139/66 139/69 O2 Sat by Pulse 100 100 Oximetry 04/27/21 04/27/21 04/27/21 04:15 04:23 04:30 Temperature Pulse Rate 72 74 75 Pulse Rate [ Bilateral Throughout] Pulse Rate [ From Monitor] Respiratory 18 17 Rate Respiratory Rate [Bilateral Throughout] Blood Pressure 139/69 139/69 146/70 O2 Sat by Pulse 100 98 99 Oximetry 04/27/21 04/27/21 04/27/21 04:45 05:00 05:15 Temperature Pulse Rate 75 75 74 Pulse Rate [ Bilateral Throughout] Pulse Rate [ From Monitor] Respiratory 21 19 18 Rate Respiratory Rate [Bilateral Throughout] Blood Pressure 146/70 139/67 139/67 O2 Sat by Pulse 98 99 99 Oximetry 04/27/21 04/27/21 04/27/21 05:31 05:45 06:00 Temperature Pulse Rate 83 83 72 Pulse Rate [ Bilateral Throughout] Pulse Rate [ From Monitor] Respiratory 20 18 20 Rate Respiratory Rate [Bilateral Throughout] Blood Pressure 132/72 132/72 130/70 O2 Sat by Pulse 99 99 99 Oximetry 04/27/21 04/27/21 04/27/21 06:15 06:30 06:37 Temperature Pulse Rate 72 72 71 Pulse Rate [ Bilateral Throughout] Pulse Rate [ From Monitor] Respiratory 15 19 Rate Respiratory Rate [Bilateral Throughout] Blood Pressure 130/70 126/69 126/69 O2 Sat by Pulse 99 99 Oximetry 04/27/21 04/27/21 04/27/21 06:45 07:00 07:01 Temperature 97.4 F L Pulse Rate 73 73 Pulse Rate [ Bilateral Throughout] Pulse Rate [ From Monitor] Respiratory 21 22 Rate Respiratory Rate [Bilateral Throughout] Blood Pressure 126/69 153/72 O2 Sat by Pulse 97 97 Oximetry 04/27/21 04/27/21 04/27/21 07:15 07:21 07:30 Temperature Pulse Rate 73 74 83 Pulse Rate [ 76 Bilateral Throughout] Pulse Rate [ From Monitor] Respiratory 18 19 Rate Respiratory 19 Rate [Bilateral Throughout] Blood Pressure 153/72 153/72 153/73 O2 Sat by Pulse 98 98 100 Oximetry 04/27/21 04/27/21 04/27/21 07:45 08:00 08:15 Temperature Pulse Rate 74 75 86 Pulse Rate [ Bilateral Throughout] Pulse Rate [ From Monitor] Respiratory 28 H 24 21 Rate Respiratory Rate [Bilateral Throughout] Blood Pressure 153/73 162/75 162/75 O2 Sat by Pulse 97 98 98 Oximetry 04/27/21 04/27/21 04/27/21 08:31 08:45 09:00 Temperature Pulse Rate 88 80 78 Pulse Rate [ Bilateral Throughout] Pulse Rate [ From Monitor] Respiratory 20 23 25 H Rate Respiratory Rate [Bilateral Throughout] Blood Pressure 185/89 185/89 158/78 O2 Sat by Pulse 99 98 98 Oximetry 04/27/21 04/27/21 04/27/21 09:16 09:25 09:26 Temperature Pulse Rate 78 87 87 Pulse Rate [ Bilateral Throughout] Pulse Rate [ From Monitor] Respiratory 24 Rate Respiratory Rate [Bilateral Throughout] Blood Pressure 158/78 158/78 158/78 O2 Sat by Pulse 98 Oximetry 04/27/21 04/27/21 04/27/21 09:30 09:45 10:00 Temperature Pulse Rate 77 85 74 Pulse Rate [ Bilateral Throughout] Pulse Rate [ From Monitor] Respiratory 23 23 24 Rate Respiratory Rate [Bilateral Throughout] Blood Pressure 153/76 158/78 151/69 O2 Sat by Pulse 98 98 98 Oximetry 04/27/21 04/27/21 04/27/21 10:15 10:30 10:45 Temperature Pulse Rate 74 72 72 Pulse Rate [ Bilateral Throughout] Pulse Rate [ From Monitor] Respiratory 25 H 20 20 Rate Respiratory Rate [Bilateral Throughout] Blood Pressure 153/76 158/69 158/69 O2 Sat by Pulse 98 99 99 Oximetry 04/27/21 04/27/21 04/27/21 11:01 11:15 11:22 Temperature Pulse Rate 73 72 72 Pulse Rate [ Bilateral Throughout] Pulse Rate [ From Monitor] Respiratory 22 24 Rate Respiratory Rate [Bilateral Throughout] Blood Pressure 182/83 182/83 158/69 O2 Sat by Pulse 100 99 99 Oximetry 04/27/21 04/27/21 04/27/21 11:31 11:43 11:45 Temperature 97.6 F Pulse Rate 72 75 Pulse Rate [ Bilateral Throughout] Pulse Rate [ From Monitor] Respiratory 19 22 Rate Respiratory Rate [Bilateral Throughout] Blood Pressure 167/79 182/83 O2 Sat by Pulse 99 99 Oximetry 04/27/21 04/27/21 12:00 12:01 Temperature 97.6 F Pulse Rate 75 74 Pulse Rate [ Bilateral Throughout] Pulse Rate [ From Monitor] Respiratory 19 Rate Respiratory Rate [Bilateral Throughout] Blood Pressure 175/82 O2 Sat by Pulse 99 Oximetry - General Appearance General appearance: intubated, comatose EENT: ATNC, mucous membranes moist Neck: no JVD Respiratory: Present: Clear to Ascultation Cardiology: regular, S1S2 Gastrointestinal: normoactive bowel sounds Integumentary: no rash Neurologic: other (intubated ) - Lab 04/26/21 04:49 04/27/21 05:01 Most recent lab results ABG pH 7.495 (7.320-7.450) H 04/26/21 05:00 ABG O2 Saturation 97.3 (0-100) 04/26/21 05:00 Calcium 8.9 mg/dL (8.4-10.2) 04/27/21 05:01 Magnesium 1.90 mg/dL (1.7-2.3) 04/26/21 04:49 Urine Creatinine 90.4 mg/dL (0.1-20.0) H 04/23/21 13:46 Urine Sodium 123 mmol/L 04/23/21 13:46 Urine Total Protein 103 mg/dL (5-11.8) H 04/23/21 13:46 Medications & Allergies - Medications Allergies/Adverse Reactions: Allergies hydrocodone Allergy (Unknown, Verified 05/29/19 17:35) Unknown HALLUCINATION acetaminophen [From Percocet] Allergy (Verified 12/22/20 15:37) Unknown HALLICUNATION Iodinated Contrast Media [Iodinated Contrast Media - IV Dye] Allergy (Verified 12/22/20 15:37) Itching oxycodone [From Percocet] Allergy (Verified 12/22/20 15:37) Unknown HALLICUNATION Home Medications: Home Medications Medication Instructions Recorded Confirmed Last Taken Type Aspirin [Aspirin BABY CHEW TAB] 81 mg PO QDAY #30 tab.chew 10/04/18 04/25/21 07/19/19 Rx Clopidogrel [Plavix] 75 mg PO QDAY #30 tablet 10/04/18 04/25/21 07/19/19 Rx amLODIPine 10 mg PO QDAY #30 tablet 10/04/18 04/25/21 07/19/19 Rx carvediloL [Coreg] 25 mg PO DAILY #30 tablet 10/04/18 04/25/21 07/19/19 Rx hydrALAZINE [Apresoline TAB] 25 mg PO TID #90 tablet 10/04/18 04/25/21 07/19/19 Rx ISOSORBIDE MONOnitrate [Imdur ER] 60 mg PO BID 05/28/19 04/25/21 07/19/19 History Potassium Chloride [K-Dur] 10 meq PO QDAY 05/28/19 04/25/21 07/19/19 History lisinopriL [Zestril TAB] 5 mg PO QDAY 05/28/19 04/25/21 07/19/19 History raNITIdine HCl [Zantac] 300 mg PO BID 05/28/19 04/25/21 07/19/19 History risperiDONE [RisperDAL] 0.5 mg PO BID 05/28/19 04/25/21 07/19/19 History AtorvaSTATin [Lipitor] 80 mg PO QHS tablet 05/30/19 04/25/21 07/19/19 Rx Nitroglycerin [Nitrostat] 0.4 mg SL .Q5MIN PRN #60 tab 12/08/19 04/25/21 Unknown Rx Ranolazine ER [Ranexa ER] 1,000 mg PO BID #60 tablet 12/08/19 04/25/21 Unknown Rx Temazepam 30 mg PO QHS #7 capsule 12/08/19 04/25/21 Unknown Rx Torsemide [Demadex] 40 mg PO BID #60 12/08/19 04/25/21 Unknown Rx Active Medications: Generic Name Dose Route Start Last Admin Trade Name Freq PRN Reason Stop Dose Admin Acetaminophen 650 mg 04/22/21 21:26 Acetaminophen 325 Mg Tab PO Q4H PRN Pain MILD(1-3)/Fever >100.5/GIORDANO Albuterol 2.5 mg 04/22/21 21:26 Albuterol 2.5 Mg/3 Ml Nebu IH Q3HRT PRN Shortness Of Breath Albuterol/Ipratropium 1 ampul 04/23/21 02:00 04/27/21 07:21 Ipratropium/Albuterol Sulfate 3 Ml Ampul.Neb IH 1 ampul Q6HRT [facility] Administration Amlodipine Besylate 10 mg 04/23/21 10:00 04/27/21 09:25 Amlodipine 10 Mg Tab PO 10 mg QDAY [facility] Administration Lipase/Protease/Amylase 1 each 04/23/21 09:33 Lipase 10,500/Protease 25,000/Amylase 43,750 (Units) Dr Machado FEEDTUBE PRN PRN For Clogged Feeding Tube Aspirin 325 mg 04/24/21 10:00 04/27/21 09:26 Aspirin 325 Mg Tab PO 325 mg QDAY [facility] Administration Atorvastatin Calcium 80 mg 04/22/21 22:00 04/26/21 22:16 Atorvastatin 40 Mg Tab PO 80 mg QHS [facility] Administration Carvedilol 25 mg 04/23/21 08:00 04/27/21 09:26 Carvedilol 25 Mg Tab PO 25 mg DAILY@0800 [facility] Administration Clopidogrel Bisulfate 75 mg 04/23/21 10:00 04/27/21 09:26 Clopidogrel 75 Mg Tab PO 75 mg QDAY [facility] Administration Dextrose 0 ml 04/22/21 21:26 Dextrose 50% In Water (25gm) 50 Ml Syringe IV Q30MIN PRN Hypoglycemia Protocol Famotidine 20 mg 04/25/21 10:00 04/27/21 09:26 Famotidine 20 Mg Tab PO 20 mg DAILY [facility] Administration Heparin Sodium (Porcine) 4,000 unit 04/22/21 21:39 Heparin 10,000 Units/10 Ml Vial 40 unit/kg (4000 unit) IV Q6H PRN Anti-Xa Assay < 0.1 units/ml Hydralazine HCl 10 mg 04/22/21 21:35 04/26/21 02:22 Hydralazine 20 Mg/1 Ml Inj IV 10 mg Q6H PRN Administration htn Hydralazine HCl 100 mg 04/27/21 09:30 04/27/21 10:45 Hydralazine 100 Mg Tab PO Not Given Q8HR [facility] Propofol 1,000 mg in 100 mls @ 3 mls/hr 04/22/21 19:00 04/24/21 19:06 Diprivan 10 Mg/Ml IV 0 mcg/kg/min TITR [facility] 0 mls/hr Titration Protocol 5 MCG/KG/MIN Heparin Sodium/Sodium Chloride 25,000 unit in 500 mls @ 20 mls/hr 04/22/21 22:00 04/27/21 00:09 Heparin/ 0.45% Nacl-25,000 Unit/500 Ml IV 1,100 units/hr TITRATE [facility] 22 mls/hr Administration Protocol 1,000 UNITS/HR Insulin Human Lispro 0 unit 04/23/21 00:00 04/27/21 12:25 Insulin Lispro 100 Unit/Ml SUB-Q Not Given Q6HR [facility] Protocol Isosorbide Mononitrate 40 mg 04/24/21 09:00 04/27/21 06:37 Isosorbide Mononitrate 20 Mg Tab PO 40 mg Q8HR [facility] Administration Levetiracetam 750 mg 04/27/21 10:00 04/27/21 09:25 Levetiracetam 500 Mg/5 Ml Oral Liqd PO 750 mg BID [facility] Administration Lorazepam 2 mg 04/22/21 22:52 04/26/21 05:53 Lorazepam 2 Mg/Ml Vial IV 2 mg Q4H PRN Administration Seizures Nitroglycerin 0.4 mg 04/22/21 21:26 Nitroglycerin 0.4 Mg Tab Subl SL .Q5MIN PRN Chest Pain Ondansetron HCl 4 mg 04/22/21 21:26 Ondansetron 4 Mg/2 Ml Inj IV Q8H PRN Nausea And Vomiting Simple Syrup 15 ml 04/23/21 09:33 Simple Syrup 15 Ml FEEDTUBE PRN PRN Hypoglycemia Simple Syrup 30 ml 04/23/21 09:33 Simple Syrup 15 Ml FEEDTUBE PRN PRN Hypoglycemia Sodium Bicarbonate 325 mg 04/23/21 09:33 Sodium Bicarbonate 325 Mg Tab FEEDTUBE PRN PRN For Clogged Feeding Tube Sodium Chloride 10 ml 04/22/21 22:00 04/27/21 09:25 Sodium Chloride 0.9% 10 Ml Flush Syringe IV 10 ml BID [facility] Administration Sodium Chloride 10 ml 04/22/21 21:26 Sodium Chloride 0.9% 10 Ml Flush Syringe IV PRN PRN LINE FLUSH
--- NOTE | 2021-04-27 13:45 | Progress Note ---
Assessment and Plan Cardiac arrest with ROSC Acute hypoxemic respiratory failure Acute kidney injury secondary to vasomotor nephropathy COVID-19 PUI NSTEMI Acute Encephalopathy Myoclonic jerks vs Seizures Lactic acidosis Elevated D-dimer CAD s/p CABG x3 Ischemic cardiomyopathy with EF of 40 to 45% Hypertension Hyperlipidemia CVA Diabetes type II (discussed with his who is waiting for her Son to get back home; in meantime she agrees to talk to Surgeon about tracheostomy) - continue care as below otherwise; - get 2 sets of blood cultures for fever > 101F - watch clinically off AB's re: fevers / WBC - hold on CTA chest re: DELMI and pending families decision - continue IV Heparin re: NSTEMI and follow platelets - follow neurology evaluation - prn vasopressors for target MAP > 65 mmHg - inotropic support per cardiology recommendations - continue to wean supplemental oxygen for target O2 sat's > 90% acutely - VAP bundle addressed - continue lung protective strategies - continue bronchodilators with pulmonary hygiene per RT - wean per pulmonary driven protocols otherwise - continue Daily SAT and SBT assessment as tolerated - continue accuchecks with glycemic control per SSI (While critically ill target blood glucose of 140-180 mg/dL; avoid hypoglycemia) - sedation prn for target RASS 0 to -1 - avoid nephrotoxins, renally dose all medications - continue to avoid benzodiazepine's, reduce the possibility of delirium - AB's per ID rec's - prn analgesia per CPOT score - Maintenance of sleep-wake cycle, avoid delirium - enteral nutritional support at goal rate as tolerated - G.I. & VTE prophylaxis - PT/OT/ROM exercises - mobility protocols for pressure ulcer prophylaxis - Monitor hemodynamics closely - continue other care per attending / other consultants - discharge planning ongoing concurrently COVID SPECIFIC INTERVENTIONS - Remdesivir as per ID/Pulmonary developed protocols - consider systemic steroids for severe COVID-19 infection empirically - follow repeat COVID tests results - zinc and vitamin C supplementation - Monitor inflammatory markers per facility protocol - ferritin, Ddimer, CRP - consider therapeutic anticoagulation per system Protocol based on d-dimer and clinical considerations - Continue contact and airborne isolation .... Re-evaluate in am & prn CONDITION: CRITICAL PROGNOSIS: GUARDED CODE STATUS: FULL CODE The high probability of a clinically significant, sudden or life-threatening deterioration of the [respiratory, cardiovascular & neurologic] system(s) required my full and direct attention, intervention and personal management. The aggregate critical care time was [32] minutes without overlap. Time includes spent on; [x] Data Review and interpretation [x] Patient assessment and monitoring of vital signs [x] Documentation [x] Medication orders and management Subjective Date of service: 04/27/21 Principal diagnosis: Cardiac; DELMI; Ac hypoxemic resp failure; Ac Encephalopathy; HFrEF; DM II Interval history: Patient is seen today for: Cardiac arrest with ROSC; DELMI; Acute hypoxemic respiratory failure; PUI COVID-19; NSTEMI; Acute Encephalopathy Myoclonic jerks vs Seizures; Ischemic cardiomyopathy with EF of 20 to 25%; DM II; H/O CVA Seen and examined at bedside; 24hour events reviewed; nursing and respiratory care staff consulted; no adverse overnight events reported to me; resting peacefully in bed; await families decision on care going forwards; surgery ev aluation ongoing Objective Vital Signs - 12hr 04/27/21 04/27/21 04/27/21 01:45 02:00 02:15 Temperature Pulse Rate 85 77 78 Pulse Rate [ Bilateral Throughout] Pulse Rate [ From Monitor] Respiratory 18 19 19 Rate Respiratory Rate [Bilateral Throughout] Blood Pressure 149/69 133/67 133/67 O2 Sat by Pulse 98 98 98 Oximetry 04/27/21 04/27/21 04/27/21 02:30 02:45 03:00 Temperature Pulse Rate 76 76 75 Pulse Rate [ Bilateral Throughout] Pulse Rate [ From Monitor] Respiratory 20 18 19 Rate Respiratory Rate [Bilateral Throughout] Blood Pressure 142/66 142/66 139/66 O2 Sat by Pulse 98 98 98 Oximetry 04/27/21 04/27/21 04/27/21 03:15 03:24 03:30 Temperature 98.8 F Pulse Rate 74 77 Pulse Rate [ Bilateral Throughout] Pulse Rate [ From Monitor] Respiratory 20 19 Rate Respiratory Rate [Bilateral Throughout] Blood Pressure 139/66 139/66 O2 Sat by Pulse 99 98 Oximetry 04/27/21 04/27/21 04/27/21 03:33 03:45 04:00 Temperature Pulse Rate 73 74 Pulse Rate [ 77 Bilateral Throughout] Pulse Rate [ 78 From Monitor] Respiratory 19 16 Rate Respiratory 19 Rate [Bilateral Throughout] Blood Pressure 139/66 139/69 O2 Sat by Pulse 100 100 Oximetry 04/27/21 04/27/21 04/27/21 04:15 04:23 04:30 Temperature Pulse Rate 72 74 75 Pulse Rate [ Bilateral Throughout] Pulse Rate [ From Monitor] Respiratory 18 17 Rate Respiratory Rate [Bilateral Throughout] Blood Pressure 139/69 139/69 146/70 O2 Sat by Pulse 100 98 99 Oximetry 04/27/21 04/27/21 04/27/21 04:45 05:00 05:15 Temperature Pulse Rate 75 75 74 Pulse Rate [ Bilateral Throughout] Pulse Rate [ From Monitor] Respiratory 21 19 18 Rate Respiratory Rate [Bilateral Throughout] Blood Pressure 146/70 139/67 139/67 O2 Sat by Pulse 98 99 99 Oximetry 04/27/21 04/27/21 04/27/21 05:31 05:45 06:00 Temperature Pulse Rate 83 83 72 Pulse Rate [ Bilateral Throughout] Pulse Rate [ From Monitor] Respiratory 20 18 20 Rate Respiratory Rate [Bilateral Throughout] Blood Pressure 132/72 132/72 130/70 O2 Sat by Pulse 99 99 99 Oximetry 04/27/21 04/27/21 04/27/21 06:15 06:30 06:37 Temperature Pulse Rate 72 72 71 Pulse Rate [ Bilateral Throughout] Pulse Rate [ From Monitor] Respiratory 15 19 Rate Respiratory Rate [Bilateral Throughout] Blood Pressure 130/70 126/69 126/69 O2 Sat by Pulse 99 99 Oximetry 04/27/21 04/27/21 04/27/21 06:45 07:00 07:01 Temperature 97.4 F L Pulse Rate 73 73 Pulse Rate [ Bilateral Throughout] Pulse Rate [ From Monitor] Respiratory 21 22 Rate Respiratory Rate [Bilateral Throughout] Blood Pressure 126/69 153/72 O2 Sat by Pulse 97 97 Oximetry 04/27/21 04/27/21 04/27/21 07:15 07:21 07:30 Temperature Pulse Rate 73 74 83 Pulse Rate [ 76 Bilateral Throughout] Pulse Rate [ From Monitor] Respiratory 18 19 Rate Respiratory 19 Rate [Bilateral Throughout] Blood Pressure 153/72 153/72 153/73 O2 Sat by Pulse 98 98 100 Oximetry 04/27/21 04/27/21 04/27/21 07:45 08:00 08:15 Temperature Pulse Rate 74 75 86 Pulse Rate [ Bilateral Throughout] Pulse Rate [ From Monitor] Respiratory 28 H 24 21 Rate Respiratory Rate [Bilateral Throughout] Blood Pressure 153/73 162/75 162/75 O2 Sat by Pulse 97 98 98 Oximetry 04/27/21 04/27/21 04/27/21 08:31 08:45 09:00 Temperature Pulse Rate 88 80 78 Pulse Rate [ Bilateral Throughout] Pulse Rate [ From Monitor] Respiratory 20 23 25 H Rate Respiratory Rate [Bilateral Throughout] Blood Pressure 185/89 185/89 158/78 O2 Sat by Pulse 99 98 98 Oximetry 04/27/21 04/27/21 04/27/21 09:16 09:25 09:26 Temperature Pulse Rate 78 87 87 Pulse Rate [ Bilateral Throughout] Pulse Rate [ From Monitor] Respiratory 24 Rate Respiratory Rate [Bilateral Throughout] Blood Pressure 158/78 158/78 158/78 O2 Sat by Pulse 98 Oximetry 04/27/21 04/27/21 04/27/21 09:30 09:45 10:00 Temperature Pulse Rate 77 85 74 Pulse Rate [ Bilateral Throughout] Pulse Rate [ From Monitor] Respiratory 23 23 24 Rate Respiratory Rate [Bilateral Throughout] Blood Pressure 153/76 158/78 151/69 O2 Sat by Pulse 98 98 98 Oximetry 04/27/21 04/27/21 04/27/21 10:15 10:30 10:45 Temperature Pulse Rate 74 72 72 Pulse Rate [ Bilateral Throughout] Pulse Rate [ From Monitor] Respiratory 25 H 20 20 Rate Respiratory Rate [Bilateral Throughout] Blood Pressure 153/76 158/69 158/69 O2 Sat by Pulse 98 99 99 Oximetry 04/27/21 04/27/21 04/27/21 11:01 11:15 11:22 Temperature Pulse Rate 73 72 72 Pulse Rate [ Bilateral Throughout] Pulse Rate [ From Monitor] Respiratory 22 24 Rate Respiratory Rate [Bilateral Throughout] Blood Pressure 182/83 182/83 158/69 O2 Sat by Pulse 100 99 99 Oximetry 04/27/21 04/27/21 04/27/21 11:31 11:43 11:45 Temperature 97.6 F Pulse Rate 72 75 Pulse Rate [ Bilateral Throughout] Pulse Rate [ From Monitor] Respiratory 19 22 Rate Respiratory Rate [Bilateral Throughout] Blood Pressure 167/79 182/83 O2 Sat by Pulse 99 99 Oximetry 04/27/21 04/27/21 12:00 12:01 Temperature 97.6 F Pulse Rate 75 74 Pulse Rate [ Bilateral Throughout] Pulse Rate [ From Monitor] Respiratory 19 Rate Respiratory Rate [Bilateral Throughout] Blood Pressure 175/82 O2 Sat by Pulse 99 Oximetry Constitutional: no acute distress, other (elderly obese male without significant patient-ventilator dyssynchrony) Eyes: non-icteric ENT: oropharynx moist, oropharyngeal exudate pre (copious), other (ETT 24 cm PERNELL) Neck: supple, no lymphadenopathy, no JVD Effort: normal Ascultation: Bilateral: diminished breath sounds, rhonchi (scant) Percussion: Bilateral: not dull Cardiovascular: regular rate and rhythm Gastrointestinal: normoactive bowel sounds, soft, non-tender, non-distended (protuberant) Integumentary: other (scars in abdomen and lower extremities) Extremities: no cyanosis, no edema, pulses normal, no ischemia or petechiae Neurologic: pupils equal and round (pin- point), unable to assess Psychiatric: other (unable to assess re: AMS) CBC and BMP: 04/28/21 04:42 04/27/21 05:01 ABG, PT/INR, D-dimer: ABG ABG pH 7.495 (7.320-7.450) H 04/26/21 05:00 POC ABG pCO2 35.9 mmHg (32.0-48.0) 04/26/21 05:00 POC ABG pO2 90.8 mmHg (83-108) 04/26/21 05:00 POC ABG HCO3 27.1 04/26/21 05:00 ABG O2 Saturation 97.3 (0-100) 04/26/21 05:00 PT/INR, D-dimer PT 14.9 Sec. (12.2-14.9) 04/22/21 18:12 INR 1.17 (0.87-1.13) H 04/22/21 18:12 D-Dimer 8003.00 ng/mlDDU (0-234) H 04/23/21 08:58 Abnormal lab findings: Abnormal Labs 04/22/21 04/22/21 04/22/21 18:12 18:12 18:12 WBC 14.6 H RBC Hgb Hct MCV 102 H MCH 33 H Plt Count Lymph % (Auto) Lymph # (Auto) [place] # (Auto) Seg Neutrophils % 70.8 H Seg Neutrophils # 10.3 H INR 1.17 H D-Dimer Heparin Anti-Xa Level ABG pH POC ABG pCO2 POC ABG pO2 ABG Hemoglobin ABG Sodium ABG Potassium ABG Glucose Carboxyhemoglobin Potassium Chloride 93.4 L Carbon Dioxide 21 L BUN Creatinine Glucose 186 H POC Glucose Lactic Acid Lactate Dehydrogenase Troponin T 0.031 H C-Reactive Protein NT-Pro-B Natriuret Pep 2448 H Arterial Blood Glucose Arterial Blood Ionized Calcium Urine Creatinine Urine Total Protein 04/22/21 04/22/21 04/22/21 18:12 19:17 20:58 WBC RBC Hgb Hct MCV MCH Plt Count Lymph % (Auto) Lymph # (Auto) [place] # (Auto) Seg Neutrophils % Seg Neutrophils # INR D-Dimer Heparin Anti-Xa Level ABG pH POC ABG pCO2 POC ABG pO2 ABG Hemoglobin ABG Sodium ABG Potassium ABG Glucose Carboxyhemoglobin Potassium Chloride Carbon Dioxide BUN Creatinine Glucose POC Glucose Lactic Acid 11.00 H* 9.50 H* 5.70 H* Lactate Dehydrogenase Troponin T C-Reactive Protein NT-Pro-B Natriuret Pep Arterial Blood Glucose Arterial Blood Ionized Calcium Urine Creatinine Urine Total Protein 04/22/21 04/22/21 04/22/21 20:58 21:10 23:03 WBC RBC Hgb Hct MCV MCH Plt Count Lymph % (Auto) Lymph # (Auto) [place] # (Auto) Seg Neutrophils % Seg Neutrophils # INR D-Dimer Heparin Anti-Xa Level ABG pH 7.492 H POC ABG pCO2 30.4 L POC ABG pO2 80.3 L ABG Hemoglobin ABG Sodium ABG Potassium 3.2 L ABG Glucose 202 H Carboxyhemoglobin 1.6 H Potassium Chloride Carbon Dioxide BUN Creatinine Glucose POC Glucose 175 H Lactic Acid Lactate Dehydrogenase Troponin T 0.363 H* D C-Reactive Protein NT-Pro-B Natriuret Pep Arterial Blood Glucose 202 H Arterial Blood Ionized Calcium 4.2 L Urine Creatinine Urine Total Protein 04/22/21 04/23/21 04/23/21 23:40 02:36 02:36 WBC 14.6 H RBC Hgb Hct MCV 97 H MCH 33 H Plt Count Lymph % (Auto) 3.6 L Lymph # (Auto) 0.5 L [place] # (Auto) 1.0 H Seg Neutrophils % 89.4 H Seg Neutrophils # 13.0 H INR D-Dimer Heparin Anti-Xa Level ABG pH POC ABG pCO2 POC ABG pO2 ABG Hemoglobin ABG Sodium ABG Potassium ABG Glucose Carboxyhemoglobin Potassium Chloride Carbon Dioxide BUN Creatinine Glucose POC Glucose Lactic Acid 3.60 H* Lactate Dehydrogenase Troponin T 1.020 H* D C-Reactive Protein NT-Pro-B Natriuret Pep Arterial Blood Glucose Arterial Blood Ionized Calcium Urine Creatinine Urine Total Protein 04/23/21 04/23/21 04/23/21 02:36 03:54 05:22 WBC RBC Hgb Hct MCV MCH Plt Count Lymph % (Auto) Lymph # (Auto) [place] # (Auto) Seg Neutrophils % Seg Neutrophils # INR D-Dimer Heparin Anti-Xa Level ABG pH 7.536 H POC ABG pCO2 31.1 L POC ABG pO2 112.7 H ABG Hemoglobin ABG Sodium ABG Potassium 3.3 L ABG Glucose 129 H Carboxyhemoglobin Potassium Chloride 97.4 L Carbon Dioxide BUN 21 H Creatinine 1.6 H Glucose 145 H POC Glucose 123 H Lactic Acid Lactate Dehydrogenase Troponin T C-Reactive Protein NT-Pro-B Natriuret Pep Arterial Blood Glucose 129 H Arterial Blood Ionized Calcium 4.1 L Urine Creatinine Urine Total Protein 04/23/21 04/23/21 04/23/21 08:58 08:58 08:58 WBC RBC Hgb Hct MCV MCH Plt Count Lymph % (Auto) Lymph # (Auto) [place] # (Auto) Seg Neutrophils % Seg Neutrophils # INR D-Dimer 8003.00 H Heparin Anti-Xa Level ABG pH POC ABG pCO2 POC ABG pO2 ABG Hemoglobin ABG Sodium ABG Potassium ABG Glucose Carboxyhemoglobin Potassium Chloride Carbon Dioxide BUN Creatinine Glucose POC Glucose Lactic Acid 2.40 H* Lactate Dehydrogenase 546 H Troponin T C-Reactive Protein 2.20 H NT-Pro-B Natriuret Pep Arterial Blood Glucose Arterial Blood Ionized Calcium Urine Creatinine Urine Total Protein 04/23/21 04/23/21 04/23/21 12:07 13:46 17:29 WBC RBC Hgb Hct MCV MCH Plt Count Lymph % (Auto) Lymph # (Auto) [place] # (Auto) Seg Neutrophils % Seg Neutrophils # INR D-Dimer Heparin Anti-Xa Level ABG pH POC ABG pCO2 POC ABG pO2 ABG Hemoglobin ABG Sodium ABG Potassium ABG Glucose Carboxyhemoglobin Potassium Chloride Carbon Dioxide BUN Creatinine Glucose POC Glucose 150 H 145 H Lactic Acid Lactate Dehydrogenase Troponin T C-Reactive Protein NT-Pro-B Natriuret Pep Arterial Blood Glucose Arterial Blood Ionized Calcium Urine Creatinine 90.4 H Urine Total Protein 103 H 04/23/21 04/24/21 04/24/21 23:51 04:01 05:02 WBC RBC Hgb Hct MCV MCH Plt Count Lymph % (Auto) Lymph # (Auto) [place] # (Auto) Seg Neutrophils % Seg Neutrophils # INR D-Dimer Heparin Anti-Xa Level ABG pH 7.485 H POC ABG pCO2 POC ABG pO2 ABG Hemoglobin ABG Sodium 135.8 L ABG Potassium ABG Glucose 140 H Carboxyhemoglobin Potassium Chloride Carbon Dioxide BUN Creatinine Glucose POC Glucose 140 H 136 H Lactic Acid Lactate Dehydrogenase Troponin T C-Reactive Protein NT-Pro-B Natriuret Pep Arterial Blood Glucose 140 H Arterial Blood Ionized Calcium 4.3 L Urine Creatinine Urine Total Protein 04/24/21 04/24/21 04/24/21 07:03 07:03 11:40 WBC 12.4 H RBC 3.60 L Hgb 11.7 L Hct 34.7 L MCV 96 H MCH 33 H Plt Count Lymph % (Auto) Lymph # (Auto) [place] # (Auto) Seg Neutrophils % Seg Neutrophils # INR D-Dimer Heparin Anti-Xa Level ABG pH POC ABG pCO2 POC ABG pO2 ABG Hemoglobin ABG Sodium ABG Potassium ABG Glucose Carboxyhemoglobin Potassium 3.5 L Chloride Carbon Dioxide BUN 28 H Creatinine 2.2 H Glucose 133 H POC Glucose 153 H Lactic Acid Lactate Dehydrogenase Troponin T C-Reactive Protein NT-Pro-B Natriuret Pep Arterial Blood Glucose Arterial Blood Ionized Calcium Urine Creatinine Urine Total Protein 04/24/21 04/24/21 04/25/21 17:20 23:39 03:05 WBC RBC Hgb Hct MCV MCH Plt Count Lymph % (Auto) Lymph # (Auto) [place] # (Auto) Seg Neutrophils % Seg Neutrophils # INR D-Dimer Heparin Anti-Xa Level ABG pH 7.462 H POC ABG pCO2 POC ABG pO2 80.2 L ABG Hemoglobin 11.0 L ABG Sodium ABG Potassium 3.3 L ABG Glucose 137 H Carboxyhemoglobin Potassium Chloride Carbon Dioxide BUN Creatinine Glucose POC Glucose 170 H 130 H Lactic Acid Lactate Dehydrogenase Troponin T C-Reactive Protein NT-Pro-B Natriuret Pep Arterial Blood Glucose 137 H Arterial Blood Ionized Calcium 4.5 L Urine Creatinine Urine Total Protein 04/25/21 04/25/21 04/25/21 05:31 08:55 08:55 WBC RBC 3.32 L Hgb 10.8 L Hct 32.5 L MCV 98 H MCH Plt Count 116 L Lymph % (Auto) Lymph # (Auto) [place] # (Auto) Seg Neutrophils % Seg Neutrophils # INR D-Dimer Heparin Anti-Xa Level ABG pH POC ABG pCO2 POC ABG pO2 ABG Hemoglobin ABG Sodium ABG Potassium ABG Glucose Carboxyhemoglobin Potassium 3.4 L Chloride Carbon Dioxide BUN 34 H Creatinine 1.9 H Glucose 123 H POC Glucose 152 H Lactic Acid Lactate Dehydrogenase Troponin T C-Reactive Protein NT-Pro-B Natriuret Pep Arterial Blood Glucose Arterial Blood Ionized Calcium Urine Creatinine Urine Total Protein 04/25/21 04/25/21 04/25/21 11:55 17:25 23:28 WBC RBC Hgb Hct MCV MCH Plt Count Lymph % (Auto) Lymph # (Auto) [place] # (Auto) Seg Neutrophils % Seg Neutrophils # INR D-Dimer Heparin Anti-Xa Level ABG pH POC ABG pCO2 POC ABG pO2 ABG Hemoglobin ABG Sodium ABG Potassium ABG Glucose Carboxyhemoglobin Potassium Chloride Carbon Dioxide BUN Creatinine Glucose POC Glucose 142 H 121 H 141 H Lactic Acid Lactate Dehydrogenase Troponin T C-Reactive Protein NT-Pro-B Natriuret Pep Arterial Blood Glucose Arterial Blood Ionized Calcium Urine Creatinine Urine Total Protein 04/26/21 04/26/21 04/26/21 04:49 05:00 05:40 WBC RBC 3.37 L Hgb 11.1 L Hct 32.6 L MCV 97 H MCH 33 H Plt Count Lymph % (Auto) Lymph # (Auto) [place] # (Auto) Seg Neutrophils % Seg Neutrophils # INR D-Dimer Heparin Anti-Xa Level ABG pH 7.495 H POC ABG pCO2 POC ABG pO2 ABG Hemoglobin 11.6 L ABG Sodium ABG Potassium ABG Glucose 134 H Carboxyhemoglobin Potassium Chloride Carbon Dioxide BUN Creatinine Glucose POC Glucose 127 H Lactic Acid Lactate Dehydrogenase Troponin T C-Reactive Protein NT-Pro-B Natriuret Pep Arterial Blood Glucose 134 H Arterial Blood Ionized Calcium Urine Creatinine Urine Total Protein 04/26/21 04/26/21 04/26/21 08:54 08:54 11:07 WBC RBC Hgb Hct MCV MCH Plt Count Lymph % (Auto) Lymph # (Auto) [place] # (Auto) Seg Neutrophils % Seg Neutrophils # INR D-Dimer Heparin Anti-Xa Level 0.20 L ABG pH POC ABG pCO2 POC ABG pO2 ABG Hemoglobin ABG Sodium ABG Potassium ABG Glucose Carboxyhemoglobin Potassium Chloride Carbon Dioxide BUN 36 H Creatinine 1.7 H Glucose 132 H POC Glucose 128 H Lactic Acid Lactate Dehydrogenase Troponin T C-Reactive Protein NT-Pro-B Natriuret Pep Arterial Blood Glucose Arterial Blood Ionized Calcium Urine Creatinine Urine Total Protein 04/26/21 04/26/21 04/27/21 18:22 23:30 05:01 WBC RBC Hgb Hct MCV MCH Plt Count Lymph % (Auto) Lymph # (Auto) [place] # (Auto) Seg Neutrophils % Seg Neutrophils # INR D-Dimer Heparin Anti-Xa Level ABG pH POC ABG pCO2 POC ABG pO2 ABG Hemoglobin ABG Sodium ABG Potassium ABG Glucose Carboxyhemoglobin Potassium Chloride Carbon Dioxide BUN 40 H Creatinine 1.4 H Glucose 125 H POC Glucose 136 H 147 H Lactic Acid Lactate Dehydrogenase Troponin T C-Reactive Protein NT-Pro-B Natriuret Pep Arterial Blood Glucose Arterial Blood Ionized Calcium Urine Creatinine Urine Total Protein 04/27/21 04/27/21 05:32 11:26 WBC RBC Hgb Hct MCV MCH Plt Count Lymph % (Auto) Lymph # (Auto) [place] # (Auto) Seg Neutrophils % Seg Neutrophils # INR D-Dimer Heparin Anti-Xa Level ABG pH POC ABG pCO2 POC ABG pO2 ABG Hemoglobin ABG Sodium ABG Potassium ABG Glucose Carboxyhemoglobin Potassium Chloride Carbon Dioxide BUN Creatinine Glucose POC Glucose 137 H 139 H Lactic Acid Lactate Dehydrogenase Troponin T C-Reactive Protein NT-Pro-B Natriuret Pep Arterial Blood Glucose Arterial Blood Ionized Calcium Urine Creatinine Urine Total Protein Allied health notes reviewed: nursing
--- NOTE | 2021-04-27 16:52 | Progress Note ---
<CHARLESKATHRINENola - Last Filed: 04/27/21 16:47> Assessment and Plan Assessment and plan: This is a 65-year-old male with CAD s/p CABG x3, ischemic cardiomyopathy with ejection fraction of 40 to 45%, hypertension, hyperlipidemia, CVA and diabetes who was admitted s/p cardiac arrest, leukocytosis, lactic acidosis, elevated troponin, hypochloremia, metabolic acidosis, acute hypoxic respiratory failure S/p cardiac arrest (NSTEMI) Acute hypoxic respiratory failure Acute kidney injury secondary to vasomotor nephropathy ? Brain injury ? Myoclonic jerks/Seizures Lactic acidosis (down trending) Elevated D-dimer CAD s/p CABG x3 Ischemic cardiomyopathy with EF of 40 to 45% Hypertension Hyperlipidemia CVA Diabetes -CCM, neurology, nephrology, cardiology consulted, appreciate recommendations -COVID-19 PCR negative -IV antibiotic -04/23 renal ultrasound shows no evidence of medical renal disease or hydronephrosis -04/22 echocardiogram shows moderately dilated left ventricle, left ventricular function severely decreased with LVEF of 20 to 25%, borderline concentric left ventricle hypertrophy, mildly dilated left atrium, mild MR, mild AR, mild TR, mild pulmonary hypertension, RVSP is 46 mmHg -04/23 renal calculated at 1.5 suggestive of ATN or prerenal state -04/24 EEG shows is abnormal due to diffuse background slowing noted throughout the recording, excessive beta activity noted bifrontally most likely drug-relat ed, suggestive of possible toxic metabolic encephalopathy, drug effect, possibility of postictal or post anoxic brain injury. -04/24 MRI brain findings consistent with diffuse anoxic injury, large chronic infarct in the right MCA distribution, chronic white matter changes which are nonspecific and consistent with chronic microvascular ischemic disease, no evidence of hemorrhage, mass, mass-effect. -04/24 MRI head shows no acute large vessel occlusion or extra-axial fluid collection -Aspirin, Lipitor -Heparin drip -IV Keppra -Continue home amlodipine, aspirin, Lipitor, Coreg, Plavix, hydralazine, Imdur -S/p 2L NS bolus in ED -s/p IV hydration -Hold home torsemide, lisinopril -Tube feeding -Trend CBC, BMP DVT/GI prophylaxis: SCDs to bilateral lower extremities while in bed, systemic anticoagulation with heparin drip, PPI Disposition: ICU, possible hospice The high probability of a clinically significant, sudden or life threatening deterioration of the [multi] system(s) required my full and direct attention, intervention and personal management. The aggregate critical care time was [35] minutes. This time is in addition to time spent performing reported procedures but includes the following: [x] Data Review and interpretation [x] Patient assessment and monitoring of vital signs [x] Documentation [x] Medication orders and management History Interval history: This is a 65-year-old male with CAD s/p stents and CABG, DM, CVA, diastolic heart failure, HTN, hypercholesterolemia presented to the emergency department on 04/22 s/p cardiac arrest. Upon arrival of fire department patient was placed in the ED and shocked x2. Upon arrival of EMS patient was found to be in asystole and was given epinephrine x3, Narcan, sodium bicarb x1 and ROSC was achieved. Upon arrival to the emergency department patient again went to cardiac arrest and received 1 round of ACLS with epi nephron x1 and bicarb x1. Work-up in the emergency department revealed leukocytosis, lactic acidosis, elevated troponin, hypochloremia, metabolic acidosis. Patient was admitted to the hospital service with consults to nephrology, cardiology, neurology and [facility]. 04/23: We will hold MOLLY inhibitor and diuretics in setting of DELMI. EEG, MRI, MRV, renal ultrasound, echocardiogram pending Patient sedated with propofol. At the time my examination patient is on assist control tidal volume 450, rate of 26, PEEP of 6 and FiO2 of 30%. Nephrology was consulted given acute kidney injury and neurology. 04/24: Patient's leukocytosis has improved, he has slight hyperkalemia today but his kidney function has worsened to BUN 28/creatinine 2.2 from 14/12.6. Lactic acidosis has improved. Patient had his EEG today and is scheduled for MRI brain and MRA/MRV. This time my examination patient is on assist control tidal volume 450, rate 26, PEEP of 6 and 30% FiO2. Patient is Felicita calculated at 1.5 suggestive of ATN or PNA renal state. Renal ultrasound negative. He has hypokalemia today which will be repleted. 04/25: Patient's leukocytosis has resolved today, patient he is he has hyperchloremia which was repleted. Kidney function has improved. We will remove his Cruz catheter today. [facility] will obtain bilateral Doppler ultrasounds and magnesium. We will discontinue IV fluids. 04/26: Neurology has signed off today, [facility] has spoken to his family who will upda te us with decision on CODE STATUS/goals of care patient was hypokalemic today which was repleted. Surgery consult will be placed by [facility]. CPAP trial today. Will panculture with next temperature spike. Possible CTA 04/27: General surgery will contact family regarding trach/PEG, per cardiology can add CCB or alpha-hector if needed cardioprotective regimen, patient's renal function continues to improve. This evening family informed RN that they elect to proceed with hospice. commercial manager informed. Hospitalist Physical - Constitutional Vitals: Temp Pulse Resp BP Pulse Ox 97.6 F 70 20 146/65 100 04/27/21 12:00 04/27/21 16:15 04/27/21 16:15 04/27/21 16:15 04/27/21 16:15 General appearance: Present: other (Intubated) - EENT Eyes: Present: scleral icterus - Neck Neck: Absent: masses or JVD, cervical LAD - Respiratory Respiratory effort: normal Respiratory: bilateral: CTA - Cardiovascular Rhythm: regular Heart Sounds: Present: S1 & S2. Absent: systolic murmur, diastolic murmur - Extremities Extremities: no ischemia, pulses intact, pulses symmetrical, No edema, normal temperature, normal color Peripheral Pulses: within normal limits - Abdominal General gastrointestinal: soft, non-tender, non-distended, normal bowel sounds - Psychiatric Psychiatric: other (not interactive, does not follow commands, slight gag noted, no response to painful stimuli) - Neurologic Neurologic: no CNII-XII intact, no moves all extremities - Allied Health Allied health notes reviewed: nursing, RT HEART Score - HEART Score Troponin: Troponin T 1.020 ng/mL (0.00-0.029) H* D 04/23/21 02:36 Results - Labs CBC & Chem 7: 04/26/21 04:49 04/27/21 05:01 Labs: Laboratory Last Values WBC 9.0 K/mm3 (4.5-11.0) 04/26/21 04:49 RBC 3.37 M/mm3 (3.65-5.03) L 04/26/21 04:49 Hgb 11.1 gm/dl (11.8-15.2) L 04/26/21 04:49 Hct 32.6 % (35.5-45.6) L 04/26/21 04:49 MCV 97 fl (84-94) H 04/26/21 04:49 MCH 33 pg (28-32) H 04/26/21 04:49 MCHC 34 % (32-34) 04/26/21 04:49 RDW 14.7 % (13.2-15.2) 04/26/21 04:49 Plt Count 163 K/mm3 (140-440) 04/26/21 04:49 Lymph % (Auto) 3.6 % (13.4-35.0) L 04/23/21 02:36 Moffat % (Auto) 6.7 % (0.0-7.3) 04/23/21 02:36 Eos % (Auto) 0.0 % (0.0-4.3) 04/23/21 02:36 Baso % (Auto) 0.3 % (0.0-1.8) 04/23/21 02:36 Lymph # (Auto) 0.5 K/mm3 (1.2-5.4) L 04/23/21 02:36 Moffat # (Auto) 1.0 K/mm3 (0.0-0.8) H 04/23/21 02:36 Eos # (Auto) 0.0 K/mm3 (0.0-0.4) 04/23/21 02:36 Baso # (Auto) 0.0 K/mm3 (0.0-0.1) 04/23/21 02:36 Seg Neutrophils % 89.4 % (40.0-70.0) H 04/23/21 02:36 Seg Neutrophils # 13.0 K/mm3 (1.8-7.7) H 04/23/21 02:36 PT 14.9 Sec. (12.2-14.9) 04/22/21 18:12 INR 1.17 (0.87-1.13) H 04/22/21 18:12 APTT 36.5 Sec. (24.2-36.6) 04/22/21 18:12 D-Dimer 8003.00 ng/mlDDU (0-234) H 04/23/21 08:58 Heparin Anti-Xa Level 0.35 U.I./ml (0.3-0.7) 04/26/21 17:59 ABG pH 7.495 (7.320-7.450) H 04/26/21 05:00 POC ABG pCO2 35.9 mmHg (32.0-48.0) 04/26/21 05:00 POC ABG pO2 90.8 mmHg (83-108) 04/26/21 05:00 POC ABG HCO3 27.1 04/26/21 05:00 ABG O2 Saturation 97.3 (0-100) 04/26/21 05:00 POC ABG Base Excess 3.8 04/26/21 05:00 ABG Hemoglobin 11.6 (12.0-17.5) L 04/26/21 05:00 ABG Oxyhemoglobin 96.5 (94-98) 04/26/21 05:00 ABG Methemoglobin 0.3 (0.0-1.5) 04/26/21 05:00 ABG Sodium 137.1 mmol/L (136.0-145.0) 04/26/21 05:00 ABG Potassium 4.2 mmol/L (3.40-4.50) 04/26/21 05:00 ABG Chloride 101.0 mmol/L (98-107) 04/26/21 05:00 ABG Glucose 134 mg/dL (65-95) H 04/26/21 05:00 Carboxyhemoglobin 0.5 (0.5-1.5) 04/26/21 05:00 FiO2 % 30.0 04/26/21 05:00 Sodium 138 mmol/L (137-145) 04/27/21 05:01 Potassium 4.5 mmol/L (3.6-5.0) 04/27/21 05:01 Chloride 99.2 mmol/L (98-107) 04/27/21 05:01 Carbon Dioxide 29 mmol/L (22-30) 04/27/21 05:01 Anion Gap 14 mmol/L 04/27/21 05:01 BUN 40 mg/dL (9-20) H 04/27/21 05:01 Creatinine 1.4 mg/dL (0.8-1.3) H 04/27/21 05:01 Estimated GFR > 60 ml/min 04/27/21 05:01 BUN/Creatinine Ratio 29 % 04/27/21 05:01 Glucose 125 mg/dL (75-100) H 04/27/21 05:01 POC Glucose 139 mg/dL (70-105) H 04/27/21 11:26 Lactic Acid 1.40 mmol/L (0.7-2.0) 04/24/21 07:03 Calcium 8.9 mg/dL (8.4-10.2) 04/27/21 05:01 Magnesium 1.90 mg/dL (1.7-2.3) 04/26/21 04:49 Ferritin 185.5 ng/mL (30.0-300.0) 04/23/21 08:58 Lactate Dehydrogenase 546 units/L (91-180) H 04/23/21 08:58 Troponin T 1.020 ng/mL (0.00-0.029) H* D 04/23/21 02:36 C-Reactive Protein 2.20 mg/dL (0.00-1.30) H 04/23/21 08:58 NT-Pro-B Natriuret Pep 2448 pg/mL (0-900) H 04/22/21 18:12 Triglycerides 107 mg/dL (2-149) 04/22/21 18:12 Cholesterol 136 mg/dL (50-199) 04/22/21 18:12 LDL Cholesterol Direct 78 mg/dL (50-130) 04/22/21 18:12 HDL Cholesterol 58 mg/dL (40-59) 04/22/21 18:12 Cholesterol/HDL Ratio 2.34 % 04/22/21 18:12 Procalcitonin 3.46 ng/mL (<0.15) 04/23/21 08:58 Arterial Blood Glucose 134 mg/dL (65-95) H 04/26/21 05:00 Arterial Blood Ionized Calcium 4.6 mg/dL (4.6-5.3) 04/26/21 05:00 Urine Creatinine 90.4 mg/dL (0.1-20.0) H 04/23/21 13:46 Urine Sodium 123 mmol/L 04/23/21 13:46 Urine Total Protein 103 mg/dL (5-11.8) H 04/23/21 13:46 Coronavirus (PCR) Negative (Negative) 04/23/21 Unknown Microbiology: Microbiology 04/22/21 18:25 Peripheral/Venous Blood Culture - Preliminary NO GROWTH AFTER 4 DAYS 04/22/21 18:12 Peripheral/Venous Blood Culture - Preliminary NO GROWTH AFTER 4 DAYS Cruz/IV: Voiding Method Condom Catheter Active Medications - Current Medications Current Medications: Generic Name Dose Route Start Last Admin Trade Name Freq PRN Reason Stop Dose Admin Acetaminophen 650 mg 04/22/21 21:26 Acetaminophen 325 Mg Tab PO Q4H PRN Pain MILD(1-3)/Fever >100.5/GIORDANO Albuterol 2.5 mg 04/22/21 21:26 Albuterol 2.5 Mg/3 Ml Nebu IH Q3HRT PRN Shortness Of Breath Albuterol/Ipratropium 1 ampul 04/23/21 02:00 04/27/21 13:43 Ipratropium/Albuterol Sulfate 3 Ml Ampul.Neb IH 1 ampul Q6HRT SHELTON Administration Amlodipine Besylate 10 mg 04/23/21 10:00 04/27/21 09:25 Amlodipine 10 Mg Tab PO 10 mg QDAY SHELTON Administration Lipase/Protease/Amylase 1 each 04/23/21 09:33 Lipase 10,500/Protease 25,000/Amylase 43,750 (Units) Dr Carter LARSENTUBE PRN PRN For Clogged Feeding Tube Aspirin 325 mg 04/24/21 10:00 04/27/21 09:26 Aspirin 325 Mg Tab PO 325 mg QDAY SHELTON Administration Atorvastatin Calcium 80 mg 04/22/21 22:00 04/26/21 22:16 Atorvastatin 40 Mg Tab PO 80 mg QHS SHELTON Administration Carvedilol 25 mg 04/23/21 08:00 04/27/21 09:26 Carvedilol 25 Mg Tab PO 25 mg DAILY@0800 SHELTON Administration Clopidogrel Bisulfate 75 mg 04/23/21 10:00 04/27/21 09:26 Clopidogrel 75 Mg Tab PO 75 mg QDAY SHELTON Administration Dextrose 0 ml 04/22/21 21:26 Dextrose 50% In Water (25gm) 50 Ml Syringe IV Q30MIN PRN Hypoglycemia Protocol Famotidine 20 mg 04/25/21 10:00 04/27/21 09:26 Famotidine 20 Mg Tab PO 20 mg DAILY SHELTON Administration Heparin Sodium (Porcine) 4,000 unit 04/22/21 21:39 Heparin 10,000 Units/10 Ml Vial 40 unit/kg (4000 unit) IV Q6H PRN Anti-Xa Assay < 0.1 units/ml Hydralazine HCl 10 mg 04/22/21 21:35 04/26/21 02:22 Hydralazine 20 Mg/1 Ml Inj IV 10 mg Q6H PRN Administration htn Hydralazine HCl 100 mg 04/27/21 09:30 04/27/21 14:47 Hydralazine 100 Mg Tab PO 100 mg Q8HR SHELTON Administration Propofol 1,000 mg in 100 mls @ 3 mls/hr 04/22/21 19:00 04/24/21 19:06 Diprivan 10 Mg/Ml IV 0 mcg/kg/min TITR SHELTON 0 mls/hr Titration Protocol 5 MCG/KG/MIN Heparin Sodium/Sodium Chloride 25,000 unit in 500 mls @ 20 mls/hr 04/22/21 22:00 04/27/21 00:09 Heparin/ 0.45% Nacl-25,000 Unit/500 Ml IV 1,100 units/hr TITRATE SHELTON 22 mls/hr Administration Protocol 1,000 UNITS/HR Insulin Human Lispro 0 unit 04/23/21 00:00 04/27/21 12:25 Insulin Lispro 100 Unit/Ml SUB-Q Not Given Q6HR [facility] Protocol Isosorbide Mononitrate 40 mg 04/24/21 09:00 04/27/21 14:48 Isosorbide Mononitrate 20 Mg Tab PO 40 mg Q8HR SHELTON Administration Levetiracetam 750 mg 04/27/21 10:00 04/27/21 09:25 Levetiracetam 500 Mg/5 Ml Oral Liqd PO 750 mg BID SHELTON Administration Lorazepam 2 mg 04/22/21 22:52 04/26/21 05:53 Lorazepam 2 Mg/Ml Vial IV 2 mg Q4H PRN Administration Seizures Nitroglycerin 0.4 mg 04/22/21 21:26 Nitroglycerin 0.4 Mg Tab Subl SL .Q5MIN PRN Chest Pain Ondansetron HCl 4 mg 04/22/21 21:26 Ondansetron 4 Mg/2 Ml Inj IV Q8H PRN Nausea And Vomiting Simple Syrup 15 ml 04/23/21 09:33 Simple Syrup 15 Ml FEEDTUBE PRN PRN Hypoglycemia Simple Syrup 30 ml 04/23/21 09:33 Simple Syrup 15 Ml FEEDTUBE PRN PRN Hypoglycemia Sodium Bicarbonate 325 mg 04/23/21 09:33 Sodium Bicarbonate 325 Mg Tab FEEDTUBE PRN PRN For Clogged Feeding Tube Sodium Chloride 10 ml 04/22/21 22:00 04/27/21 09:25 Sodium Chloride 0.9% 10 Ml Flush Syringe IV 10 ml BID SHELTON Administration Sodium Chloride 10 ml 04/22/21 21:26 Sodium Chloride 0.9% 10 Ml Flush Syringe IV PRN PRN LINE FLUSH Nutrition/Malnutrition Assess - Dietary Evaluation Nutrition/Malnutrition Findings: Nutrition Notes Start: 04/23/21 08:22 Freq: Status: Active Protocol: Document 04/27/21 10:44 CW (Rec: 04/27/21 10:50 CW [id number]) Nutrition Notes Initial or Follow up Reassessment Current Diagnosis Diabetes,Hypertension,Heart Failure,Stroke Other Pertinent Diagnosis Cardiac arrest, AMI Current Diet Vital AF 1.2 at 65 ml/hr Labs/Tests BUN 40 Cr 1.4 BG 125 Pertinent Medications reviewed Height 6 ft Weight 102.6 kg Allgood Body Weight (kg) 80.90 BMI 30.7 Weight change and time frame weight fluctuations noted Weight Status Obese Subjective/Other Information F/U for TF tolerance. TF currently running at goal of 65 ml/hr. No reprots of TF intolerance. Percent of energy/protein needs met: 100%/73% Burn Absent Trauma Absent GI Symptoms None Current % PO Negligible Minimum of two criteria No physical signs of malnutrition #1 Nutrition Diagnosis Inadequate oral intake Diagnosis Progress(for reassessment Continues documentation) Is patient on ventilator? Yes Is Patient Ambulatory and/or Out of Bed No REE-([facility]-confined to bed) 2223.804 Kcal/Kg value to use for calculation 18 Approximate Energy Requirements Using 1847 kcal/Kg Calculation Used for Recommendations Kcal/kg Additional Notes Protein needs are >161g (>2g IBW) Fluid needs are 1ml/kcal Nutrition Intervention Change Diet Order: Continue Nutrition Support: Vital 1.2 at 65ml/h Flush with 100ml q4h Kcal 1,872 Protein (gm) 117 Fluid (mL) 1,260 Goal #1 Meet at least 70% of kcal and protein needs via TF Anticipated Discharge Needs: Unable to determine at this time Follow-Up By: 04/30/21 Additional Comments F/U for TF tolerance <ISSA MORROW O - Last Filed: 04/27/21 21:20> History Interval history: This is a 65-year-old male with CAD s/p CABG x3, ischemic cardiomyopathy with ejection fraction of 40 to 45%, hypertension, hyperlipidemia, CVA and diabetes who was admitted s/p cardiac arrest, leukocytosis, lactic acidosis, elevated troponin, hypochloremia, metabolic acidosis, acute hypoxic respiratory failure. Family to make decision on code status/goals of care. I saw and evaluated the patient and discussed with Nurse Practitioner and Suction Roller. . I agree with the findings and the plan of care as documented in the Nurse Practitioner's note. Hospitalist Physical - Constitutional Vitals: Temp Pulse Resp BP Pulse Ox 97.8 F 67 18 131/62 97 04/27/21 20:00 04/27/21 21:06 04/27/21 21:00 04/27/21 21:00 04/27/21 21:06 HEART Score - HEART Score Troponin: Troponin T 1.020 ng/mL (0.00-0.029) H* D 04/23/21 02:36 Results - Labs CBC & Chem 7: 04/26/21 04:49 04/27/21 05:01 Labs: Laboratory Last Values WBC 9.0 K/mm3 (4.5-11.0) 04/26/21 04:49 RBC 3.37 M/mm3 (3.65-5.03) L 04/26/21 04:49 Hgb 11.1 gm/dl (11.8-15.2) L 04/26/21 04:49 Hct 32.6 % (35.5-45.6) L 04/26/21 04:49 MCV 97 fl (84-94) H 04/26/21 04:49 MCH 33 pg (28-32) H 04/26/21 04:49 MCHC 34 % (32-34) 04/26/21 04:49 RDW 14.7 % (13.2-15.2) 04/26/21 04:49 Plt Count 163 K/mm3 (140-440) 04/26/21 04:49 Lymph % (Auto) 3.6 % (13.4-35.0) L 04/23/21 02:36 Moffat % (Auto) 6.7 % (0.0-7.3) 04/23/21 02:36 Eos % (Auto) 0.0 % (0.0-4.3) 04/23/21 02:36 Baso % (Auto) 0.3 % (0.0-1.8) 04/23/21 02:36 Lymph # (Auto) 0.5 K/mm3 (1.2-5.4) L 04/23/21 02:36 Moffat # (Auto) 1.0 K/mm3 (0.0-0.8) H 04/23/21 02:36 Eos # (Auto) 0.0 K/mm3 (0.0-0.4) 04/23/21 02:36 Baso # (Auto) 0.0 K/mm3 (0.0-0.1) 04/23/21 02:36 Seg Neutrophils % 89.4 % (40.0-70.0) H 04/23/21 02:36 Seg Neutrophils # 13.0 K/mm3 (1.8-7.7) H 04/23/21 02:36 PT 14.9 Sec. (12.2-14.9) 04/22/21 18:12 INR 1.17 (0.87-1.13) H 04/22/21 18:12 APTT 36.5 Sec. (24.2-36.6) 04/22/21 18:12 D-Dimer 8003.00 ng/mlDDU (0-234) H 04/23/21 08:58 Heparin Anti-Xa Level 0.35 U.I./ml (0.3-0.7) 04/27/21 17:54 ABG pH 7.495 (7.320-7.450) H 04/26/21 05:00 POC ABG pCO2 35.9 mmHg (32.0-48.0) 04/26/21 05:00 POC ABG pO2 90.8 mmHg (83-108) 04/26/21 05:00 POC ABG HCO3 27.1 04/26/21 05:00 ABG O2 Saturation 97.3 (0-100) 04/26/21 05:00 POC ABG Base Excess 3.8 04/26/21 05:00 ABG Hemoglobin 11.6 (12.0-17.5) L 04/26/21 05:00 ABG Oxyhemoglobin 96.5 (94-98) 04/26/21 05:00 ABG Methemoglobin 0.3 (0.0-1.5) 04/26/21 05:00 ABG Sodium 137.1 mmol/L (136.0-145.0) 04/26/21 05:00 ABG Potassium 4.2 mmol/L (3.40-4.50) 04/26/21 05:00 ABG Chloride 101.0 mmol/L (98-107) 04/26/21 05:00 ABG Glucose 134 mg/dL (65-95) H 04/26/21 05:00 Carboxyhemoglobin 0.5 (0.5-1.5) 04/26/21 05:00 FiO2 % 30.0 04/26/21 05:00 Sodium 138 mmol/L (137-145) 04/27/21 05:01 Potassium 4.5 mmol/L (3.6-5.0) 04/27/21 05:01 Chloride 99.2 mmol/L (98-107) 04/27/21 05:01 Carbon Dioxide 29 mmol/L (22-30) 04/27/21 05:01 Anion Gap 14 mmol/L 04/27/21 05:01 BUN 40 mg/dL (9-20) H 04/27/21 05:01 Creatinine 1.4 mg/dL (0.8-1.3) H 04/27/21 05:01 Estimated GFR > 60 ml/min 04/27/21 05:01 BUN/Creatinine Ratio 29 % 04/27/21 05:01 Glucose 125 mg/dL (75-100) H 04/27/21 05:01 POC Glucose 144 mg/dL (70-105) H 04/27/21 16:58 Lactic Acid 1.40 mmol/L (0.7-2.0) 04/24/21 07:03 Calcium 8.9 mg/dL (8.4-10.2) 04/27/21 05:01 Magnesium 1.90 mg/dL (1.7-2.3) 04/26/21 04:49 Ferritin 185.5 ng/mL (30.0-300.0) 04/23/21 08:58 Lactate Dehydrogenase 546 units/L (91-180) H 04/23/21 08:58 Troponin T 1.020 ng/mL (0.00-0.029) H* D 04/23/21 02:36 C-Reactive Protein 2.20 mg/dL (0.00-1.30) H 04/23/21 08:58 NT-Pro-B Natriuret Pep 2448 pg/mL (0-900) H 04/22/21 18:12 Triglycerides 107 mg/dL (2-149) 04/22/21 18:12 Cholesterol 136 mg/dL (50-199) 04/22/21 18:12 LDL Cholesterol Direct 78 mg/dL (50-130) 04/22/21 18:12 HDL Cholesterol 58 mg/dL (40-59) 04/22/21 18:12 Cholesterol/HDL Ratio 2.34 % 04/22/21 18:12 Procalcitonin 3.46 ng/mL (<0.15) 04/23/21 08:58 Arterial Blood Glucose 134 mg/dL (65-95) H 04/26/21 05:00 Arterial Blood Ionized Calcium 4.6 mg/dL (4.6-5.3) 04/26/21 05:00 Urine Creatinine 90.4 mg/dL (0.1-20.0) H 04/23/21 13:46 Urine Sodium 123 mmol/L 04/23/21 13:46 Urine Total Protein 103 mg/dL (5-11.8) H 04/23/21 13:46 Coronavirus (PCR) Negative (Negative) 04/23/21 Unknown Microbiology: Microbiology 04/22/21 18:25 Peripheral/Venous Blood Culture - Final NO GROWTH AFTER 5 DAYS 04/22/21 18:12 Peripheral/Venous Blood Culture - Final NO GROWTH AFTER 5 DAYS Cruz/IV: Voiding Method Condom Catheter Active Medications - Current Medications Current Medications: Generic Name Dose Route Start Last Admin Trade Name Freq PRN Reason Stop Dose Admin Acetaminophen 650 mg 04/22/21 21:26 Acetaminophen 325 Mg Tab PO Q4H PRN Pain MILD(1-3)/Fever >100.5/GIORDANO Albuterol 2.5 mg 04/22/21 21:26 Albuterol 2.5 Mg/3 Ml Nebu IH Q3HRT PRN Shortness Of Breath Albuterol/Ipratropium 1 ampul 04/23/21 02:00 04/27/21 19:41 Ipratropium/Albuterol Sulfate 3 Ml Ampul.Neb IH 1 ampul Q6HRT SHELTON Administration Amlodipine Besylate 10 mg 04/23/21 10:00 04/27/21 09:25 Amlodipine 10 Mg Tab PO 10 mg QDAY SHELTON Administration Lipase/Protease/Amylase 1 each 04/23/21 09:33 Lipase 10,500/Protease 25,000/Amylase 43,750 (Units) Dr Machado FEEDTUBE PRN PRN For Clogged Feeding Tube Aspirin 325 mg 04/24/21 10:00 04/27/21 09:26 Aspirin 325 Mg Tab PO 325 mg QDAY SHELTON Administration Atorvastatin Calcium 80 mg 04/22/21 22:00 04/26/21 22:16 Atorvastatin 40 Mg Tab PO 80 mg QHS SHELTON Administration Carvedilol 25 mg 04/23/21 08:00 04/27/21 09:26 Carvedilol 25 Mg Tab PO 25 mg DAILY@0800 SHELTON Administration Clopidogrel Bisulfate 75 mg 04/23/21 10:00 04/27/21 09:26 Clopidogrel 75 Mg Tab PO 75 mg QDAY SHELTON Administration Dextrose 0 ml 04/22/21 21:26 Dextrose 50% In Water (25gm) 50 Ml Syringe IV Q30MIN PRN Hypoglycemia Protocol Famotidine 20 mg 04/25/21 10:00 04/27/21 09:26 Famotidine 20 Mg Tab PO 20 mg DAILY SHELTON Administration Heparin Sodium (Porcine) 4,000 unit 04/22/21 21:39 Heparin 10,000 Units/10 Ml Vial 40 unit/kg (4000 unit) IV Q6H PRN Anti-Xa Assay < 0.1 units/ml Hydralazine HCl 10 mg 04/22/21 21:35 04/26/21 02:22 Hydralazine 20 Mg/1 Ml Inj IV 10 mg Q6H PRN Administration htn Hydralazine HCl 100 mg 04/27/21 09:30 04/27/21 14:47 Hydralazine 100 Mg Tab PO 100 mg Q8HR SHELTON Administration Propofol 1,000 mg in 100 mls @ 3 mls/hr 04/22/21 19:00 04/24/21 19:06 Diprivan 10 Mg/Ml IV 0 mcg/kg/min TITR SHELTON 0 mls/hr Titration Protocol 5 MCG/KG/MIN Heparin Sodium/Sodium Chloride 25,000 unit in 500 mls @ 20 mls/hr 04/22/21 22:00 04/27/21 18:54 Heparin/ 0.45% Nacl-25,000 Unit/500 Ml IV 1,100 units/hr TITRATE SHELTON 22 mls/hr Titration Protocol 1,000 UNITS/HR Insulin Human Lispro 0 unit 04/23/21 00:00 04/27/21 18:03 Insulin Lispro 100 Unit/Ml SUB-Q Not Given Q6HR [facility] Protocol Isosorbide Mononitrate 40 mg 04/24/21 09:00 04/27/21 14:48 Isosorbide Mononitrate 20 Mg Tab PO 40 mg Q8HR SHE[place] Administration Levetiracetam 750 mg 04/27/21 10:00 04/27/21 09:25 Levetiracetam 500 Mg/5 Ml Oral Liqd PO 750 mg BID SHELTON Administration Lorazepam 2 mg 04/22/21 22:52 04/26/21 05:53 Lorazepam 2 Mg/Ml Vial IV 2 mg Q4H PRN Administration Seizures Nitroglycerin 0.4 mg 04/22/21 21:26 Nitroglycerin 0.4 Mg Tab Subl SL .Q5MIN PRN Chest Pain Ondansetron HCl 4 mg 04/22/21 21:26 Ondansetron 4 Mg/2 Ml Inj IV Q8H PRN Nausea And Vomiting Simple Syrup 15 ml 04/23/21 09:33 Simple Syrup 15 Ml FEEDTUBE PRN PRN Hypoglycemia Simple Syrup 30 ml 04/23/21 09:33 Simple Syrup 15 Ml FEEDTUBE PRN PRN Hypoglycemia Sodium Bicarbonate 325 mg 04/23/21 09:33 Sodium Bicarbonate 325 Mg Tab FEEDTUBE PRN PRN For Clogged Feeding Tube Sodium Chloride 10 ml 04/22/21 22:00 04/27/21 09:25 Sodium Chloride 0.9% 10 Ml Flush Syringe IV 10 ml BID [place] Administration Sodium Chloride 10 ml 04/22/21 21:26 Sodium Chloride 0.9% 10 Ml Flush Syringe IV PRN PRN LINE FLUSH Nutrition/Malnutrition Assess - Dietary Evaluation Nutrition/Malnutrition Findings: Nutrition Notes Start: 04/23/21 08:22 Freq: Status: Active Protocol: Document 04/27/21 10:44 CW (Rec: 04/27/21 10:50 CW [id number]) Nutrition Notes Initial or Follow up Reassessment Current Diagnosis Diabetes,Hypertension,Heart Failure,Stroke Other Pertinent Diagnosis Cardiac arrest, AMI Current Diet Vital AF 1.2 at 65 ml/hr Labs/Tests BUN 40 Cr 1.4 BG 125 Pertinent Medications reviewed Height 6 ft Weight 102.6 kg [place] Body Weight (kg) 80.90 BMI 30.7 Weight change and time frame weight fluctuations noted Weight Status Obese Subjective/Other Information F/U for TF tolerance. TF currently running at goal of 65 ml/hr. No reprots of TF intolerance. Percent of energy/protein needs met: 100%/73% Burn Absent Trauma Absent GI Symptoms None Current % PO Negligible Minimum of two criteria No physical signs of malnutrition #1 Nutrition Diagnosis Inadequate oral intake Diagnosis Progress(for reassessment Continues documentation) Is patient on ventilator? Yes Is Patient Ambulatory and/or Out of Bed No REE-([place]-confined to bed) 2223.804 Kcal/Kg value to use for calculation 18 Approximate Energy Requirements Using 1847 kcal/Kg Calculation Used for Recommendations Kcal/kg Additional Notes Protein needs are >161g (>2g IBW) Fluid needs are 1ml/kcal Nutrition Intervention Change Diet Order: Continue Nutrition Support: Vital 1.2 at 65ml/h Flush with 100ml q4h Kcal 1,872 Protein (gm) 117 Fluid (mL) 1,260 Goal #1 Meet at least 70% of kcal and protein needs via TF Anticipated Discharge Needs: Unable to determine at this time Follow-Up By: 04/30/21 Additional Comments F/U for TF tolerance
[2021-04-28] MEDS: HEPARIN/ 0.45% NACL DRIP 25,000 UNIT/500 ML BAG IV SCH ×2 (00:15→22:43)
[2021-04-28] MEDS: IPRATROPIUM/ALBUTEROL SULFATE 3 ML AMPUL.NEB IH SCH ×4 (04:13→20:31)
[2021-04-28] MEDS: hydrALAZINE 100 MG TAB PO SCH ×3 (05:12→21:39)
[2021-04-28 05:13] LABS: Hematocrit 30.3 % (35.5-45.6); Hemoglobin 10.3 gm/dl (11.8-15.2)
[2021-04-28] MEDS: INSULIN LISPRO 100 UNIT/ML SUB-Q SCH ×3 (05:15→21:39)
[2021-04-28] MEDS: carvediloL 25 MG TAB PO SCH (08:49)
--- NOTE | 2021-04-28 10:04 | Progress Note ---
Assessment and Plan - Patient Problems (1) Acute kidney injury (DELMI) with acute tubular necrosis (ATN) Current Visit: Yes Status: Acute Plan to address problem: Acute kidney injury acute tubular necrosis secondary to hypotension status post cardiac arrest, kidney indices are stabilizeing , pt remains non-oliguric. Renal US showed no evidence of hydro/medical renal disease. cont supportive care for ATN avoid further nephrotoxins, NSAIDs IV contrast. maintain MAP > 65mmhg (2) Acute respiratory failure Current Visit: Yes Status: Acute Plan to address problem: Continue ventilator management per pulmonary. (3) Hypertensive emergency Current Visit: Yes Status: Acute Plan to address problem: Oral antihypertensive medications been resumed. Will need to continue intravenous drip if blood pressure still not controlled (4) Type 2 diabetes mellitus Current Visit: Yes Status: Chronic Plan to address problem: Blood sugar control by primary attending (5) History of CVA (cerebrovascular accident) Current Visit: No Status: Chronic Plan to address problem: follow neurology recommendations (6) Encephalopathy Current Visit: Yes Status: Acute Plan to address problem: due to hypoxic ischemic encephalopathy. Subjective Date of service: 04/28/21 Principal diagnosis: Cardiac; DELMI; Ac hypoxemic resp failure; Ac Encephalopathy; HFrEF; DM II Interval history: Pt remains intubated, unresponsive off sedation Objective - Vital Signs Vital signs: Vital Signs - 12hr 04/27/21 04/27/21 04/27/21 22:15 22:31 22:45 Temperature Pulse Rate 67 64 69 Pulse Rate [ Bilateral Throughout] Respiratory 18 18 17 Rate Respiratory Rate [Bilateral Throughout] Blood Pressure 123/66 123/66 123/66 O2 Sat by Pulse 100 100 100 Oximetry 04/27/21 04/27/21 04/27/21 23:00 23:15 23:31 Temperature Pulse Rate 65 70 65 Pulse Rate [ Bilateral Throughout] Respiratory 19 19 20 Rate Respiratory Rate [Bilateral Throughout] Blood Pressure 129/63 129/63 129/63 O2 Sat by Pulse 100 100 100 Oximetry 04/27/21 04/27/21 04/27/21 23:35 23:40 23:45 Temperature 98.0 F Pulse Rate 66 Pulse Rate [ Bilateral Throughout] Respiratory 19 Rate Respiratory Rate [Bilateral Throughout] Blood Pressure 129/63 O2 Sat by Pulse 97 100 Oximetry 04/27/21 04/28/21 04/28/21 23:51 00:00 00:14 Temperature Pulse Rate 62 65 67 Pulse Rate [ Bilateral Throughout] Respiratory 25 H 26 H Rate Respiratory Rate [Bilateral Throughout] Blood Pressure 129/63 131/58 131/58 O2 Sat by Pulse 100 100 99 Oximetry 04/28/21 04/28/21 04/28/21 00:15 00:31 00:45 Temperature Pulse Rate 68 69 67 Pulse Rate [ Bilateral Throughout] Respiratory 19 23 19 Rate Respiratory Rate [Bilateral Throughout] Blood Pressure 131/58 131/58 131/58 O2 Sat by Pulse 99 100 100 Oximetry 04/28/21 04/28/21 04/28/21 01:00 01:05 01:15 Temperature Pulse Rate 70 70 68 Pulse Rate [ Bilateral Throughout] Respiratory 22 22 Rate Respiratory Rate [Bilateral Throughout] Blood Pressure 137/61 137/61 O2 Sat by Pulse 100 97 99 Oximetry 04/28/21 04/28/21 04/28/21 01:30 01:31 01:45 Temperature Pulse Rate 70 76 71 Pulse Rate [ Bilateral Throughout] Respiratory 23 21 Rate Respiratory Rate [Bilateral Throughout] Blood Pressure 137/61 137/61 O2 Sat by Pulse 97 100 100 Oximetry 04/28/21 04/28/21 04/28/21 02:00 02:15 02:31 Temperature Pulse Rate 72 67 68 Pulse Rate [ Bilateral Throughout] Respiratory 22 20 21 Rate Respiratory Rate [Bilateral Throughout] Blood Pressure 135/57 135/57 135/57 O2 Sat by Pulse 100 99 99 Oximetry 04/28/21 04/28/21 04/28/21 02:45 03:01 03:15 Temperature Pulse Rate 80 69 68 Pulse Rate [ Bilateral Throughout] Respiratory 17 19 19 Rate Respiratory Rate [Bilateral Throughout] Blood Pressure 135/57 110/50 110/50 O2 Sat by Pulse 100 100 100 Oximetry 04/28/21 04/28/21 04/28/21 03:22 03:31 03:45 Temperature 98.1 F Pulse Rate 73 66 Pulse Rate [ Bilateral Throughout] Respiratory 20 17 Rate Respiratory Rate [Bilateral Throughout] Blood Pressure 110/50 110/50 O2 Sat by Pulse 100 100 Oximetry 04/28/21 04/28/21 04/28/21 04:00 04:05 04:15 Temperature Pulse Rate 68 65 66 Pulse Rate [ Bilateral Throughout] Respiratory 19 19 Rate Respiratory Rate [Bilateral Throughout] Blood Pressure 114/55 110/50 110/50 O2 Sat by Pulse 100 100 100 Oximetry 04/28/21 04/28/21 04/28/21 04:30 04:31 04:45 Temperature Pulse Rate 66 69 66 Pulse Rate [ Bilateral Throughout] Respiratory 19 17 Rate Respiratory Rate [Bilateral Throughout] Blood Pressure 110/50 114/55 O2 Sat by Pulse 97 99 100 Oximetry 04/28/21 04/28/21 04/28/21 05:00 05:15 05:31 Temperature Pulse Rate 65 67 63 Pulse Rate [ Bilateral Throughout] Respiratory 18 19 17 Rate Respiratory Rate [Bilateral Throughout] Blood Pressure 117/54 117/54 117/54 O2 Sat by Pulse 100 99 99 Oximetry 04/28/21 04/28/21 04/28/21 05:45 06:00 06:15 Temperature Pulse Rate 66 71 69 Pulse Rate [ Bilateral Throughout] Respiratory 19 16 15 Rate Respiratory Rate [Bilateral Throughout] Blood Pressure 117/54 120/70 120/70 O2 Sat by Pulse 99 99 100 Oximetry 04/28/21 04/28/21 04/28/21 06:25 06:31 07:00 Temperature Pulse Rate 66 77 66 Pulse Rate [ Bilateral Throughout] Respiratory 16 19 Rate Respiratory Rate [Bilateral Throughout] Blood Pressure 120/70 122/54 O2 Sat by Pulse 97 100 99 Oximetry 04/28/21 04/28/21 04/28/21 07:35 08:00 08:49 Temperature Pulse Rate 70 68 66 Pulse Rate [ 70 Bilateral Throughout] Respiratory 18 Rate Respiratory 20 Rate [Bilateral Throughout] Blood Pressure 122/54 123/55 123/55 O2 Sat by Pulse 97 97 Oximetry 04/28/21 09:00 Temperature Pulse Rate 63 Pulse Rate [ Bilateral Throughout] Respiratory 21 Rate Respiratory Rate [Bilateral Throughout] Blood Pressure 111/55 O2 Sat by Pulse 97 Oximetry - General Appearance General appearance: chronically ill, sedated on ventilator, intubated EENT: ATNC, mucous membranes moist Neck: no JVD Respiratory: Present: Clear to Ascultation Cardiology: regular, S1S2 Gastrointestinal: normoactive bowel sounds Integumentary: no rash, other (no edema ) - Lab 04/28/21 04:42 04/27/21 05:01 Most recent lab results ABG pH 7.495 (7.320-7.450) H 04/26/21 05:00 ABG O2 Saturation 97.3 (0-100) 04/26/21 05:00 Calcium 8.9 mg/dL (8.4-10.2) 04/27/21 05:01 Magnesium 1.90 mg/dL (1.7-2.3) 04/26/21 04:49 Urine Creatinine 90.4 mg/dL (0.1-20.0) H 04/23/21 13:46 Urine Sodium 123 mmol/L 04/23/21 13:46 Urine Total Protein 103 mg/dL (5-11.8) H 04/23/21 13:46 Medications & Allergies - Medications Allergies/Adverse Reactions: Allergies hydrocodone Allergy (Unknown, Verified 05/29/19 17:35) Unknown HALLUCINATION acetaminophen [From Percocet] Allergy (Verified 12/22/20 15:37) Unknown HALLICUNATION Iodinated Contrast Media [Iodinated Contrast Media - IV Dye] Allergy (Verified 12/22/20 15:37) Itching oxycodone [From Percocet] Allergy (Verified 12/22/20 15:37) Unknown HALLICUNATION Home Medications: Home Medications Medication Instructions Recorded Confirmed Last Taken Type Aspirin [Aspirin BABY CHEW TAB] 81 mg PO QDAY #30 tab.chew 10/04/18 04/25/21 07/19/19 Rx Clopidogrel [Plavix] 75 mg PO QDAY #30 tablet 10/04/18 04/25/21 07/19/19 Rx amLODIPine 10 mg PO QDAY #30 tablet 10/04/18 04/25/21 07/19/19 Rx carvediloL [Coreg] 25 mg PO DAILY #30 tablet 10/04/18 04/25/21 07/19/19 Rx hydrALAZINE [Apresoline TAB] 25 mg PO TID #90 tablet 10/04/18 04/25/21 07/19/19 Rx ISOSORBIDE MONOnitrate [Imdur ER] 60 mg PO BID 05/28/19 04/25/21 07/19/19 History Potassium Chloride [K-Dur] 10 meq PO QDAY 05/28/19 04/25/21 07/19/19 History lisinopriL [Zestril TAB] 5 mg PO QDAY 05/28/19 04/25/21 07/19/19 History raNITIdine HCl [Zantac] 300 mg PO BID 05/28/19 04/25/21 07/19/19 History risperiDONE [RisperDAL] 0.5 mg PO BID 05/28/19 04/25/21 07/19/19 History AtorvaSTATin [Lipitor] 80 mg PO QHS tablet 05/30/19 04/25/21 07/19/19 Rx Nitroglycerin [Nitrostat] 0.4 mg SL .Q5MIN PRN #60 tab 12/08/19 04/25/21 Unknown Rx Ranolazine ER [Ranexa ER] 1,000 mg PO BID #60 tablet 12/08/19 04/25/21 Unknown Rx Temazepam 30 mg PO QHS #7 capsule 12/08/19 04/25/21 Unknown Rx Torsemide [Demadex] 40 mg PO BID #60 12/08/19 04/25/21 Unknown Rx Active Medications: Generic Name Dose Route Start Last Admin Trade Name Freq PRN Reason Stop Dose Admin Acetaminophen 650 mg 04/22/21 21:26 Acetaminophen 325 Mg Tab PO Q4H PRN Pain MILD(1-3)/Fever >100.5/GIORDANO Albuterol 2.5 mg 04/22/21 21:26 Albuterol 2.5 Mg/3 Ml Nebu IH Q3HRT PRN Shortness Of Breath Albuterol/Ipratropium 1 ampul 04/23/21 02:00 04/28/21 07:35 Ipratropium/Albuterol Sulfate 3 Ml Ampul.Neb IH 1 ampul Q6HRT [facility] Administration Amlodipine Besylate 10 mg 04/23/21 10:00 04/27/21 09:25 Amlodipine 10 Mg Tab PO 10 mg QDAY [facility] Administration Lipase/Protease/Amylase 1 each 04/23/21 09:33 Lipase 10,500/Protease 25,000/Amylase 43,750 (Units) Dr Carter NOLAN PRN PRN For Clogged Feeding Tube Aspirin 325 mg 04/24/21 10:00 04/27/21 09:26 Aspirin 325 Mg Tab PO 325 mg QDAY [facility] Administration Atorvastatin Calcium 80 mg 04/22/21 22:00 04/27/21 23:16 Atorvastatin 40 Mg Tab PO 80 mg QHS [facility] Administration Carvedilol 25 mg 04/23/21 08:00 04/28/21 08:49 Carvedilol 25 Mg Tab PO 25 mg DAILY@0800 [facility] Administration Clopidogrel Bisulfate 75 mg 04/23/21 10:00 04/27/21 09:26 Clopidogrel 75 Mg Tab PO 75 mg QDAY [facility] Administration Dextrose 0 ml 04/22/21 21:26 Dextrose 50% In Water (25gm) 50 Ml Syringe IV Q30MIN PRN Hypoglycemia Protocol Famotidine 20 mg 04/25/21 10:00 04/27/21 09:26 Famotidine 20 Mg Tab PO 20 mg DAILY [facility] Administration Heparin Sodium (Porcine) 4,000 unit 04/22/21 21:39 Heparin 10,000 Units/10 Ml Vial 40 unit/kg (4000 unit) IV Q6H PRN Anti-Xa Assay < 0.1 units/ml Hydralazine HCl 10 mg 04/22/21 21:35 04/26/21 02:22 Hydralazine 20 Mg/1 Ml Inj IV 10 mg Q6H PRN Administration htn Hydralazine HCl 100 mg 04/27/21 09:30 04/28/21 05:12 Hydralazine 100 Mg Tab PO 100 mg Q8HR [facility] Administration Propofol 1,000 mg in 100 mls @ 3 mls/hr 04/22/21 19:00 04/24/21 19:06 Diprivan 10 Mg/Ml IV 0 mcg/kg/min TITR SHE[place] 0 mls/hr Titration Protocol 5 MCG/KG/MIN Heparin Sodium/Sodium Chloride 25,000 unit in 500 mls @ 20 mls/hr 04/22/21 22:00 04/28/21 00:15 Heparin/ 0.45% Nacl-25,000 Unit/500 Ml IV 1,100 units/hr TITRATE SHE[place] 22 mls/hr Administration Protocol 1,000 UNITS/HR Insulin Human Lispro 0 unit 04/23/21 00:00 04/28/21 05:15 Insulin Lispro 100 Unit/Ml SUB-Q Not Given Q6HR [facility] Protocol Isosorbide Mononitrate 40 mg 04/24/21 09:00 04/28/21 05:12 Isosorbide Mononitrate 20 Mg Tab PO 40 mg Q8HR [place] Administration Levetiracetam 750 mg 04/27/21 10:00 04/27/21 23:16 Levetiracetam 500 Mg/5 Ml Oral Liqd PO 750 mg BID [facility] Administration Lorazepam 2 mg 04/22/21 22:52 04/26/21 05:53 Lorazepam 2 Mg/Ml Vial IV 2 mg Q4H PRN Administration Seizures Nitroglycerin 0.4 mg 04/22/21 21:26 Nitroglycerin 0.4 Mg Tab Subl SL .Q5MIN PRN Chest Pain Ondansetron HCl 4 mg 04/22/21 21:26 Ondansetron 4 Mg/2 Ml Inj IV Q8H PRN Nausea And Vomiting Simple Syrup 15 ml 04/23/21 09:33 Simple Syrup 15 Ml FEEDTUBE PRN PRN Hypoglycemia Simple Syrup 30 ml 04/23/21 09:33 Simple Syrup 15 Ml FEEDTUBE PRN PRN Hypoglycemia Sodium Bicarbonate 325 mg 04/23/21 09:33 Sodium Bicarbonate 325 Mg Tab FEEDTUBE PRN PRN For Clogged Feeding Tube Sodium Chloride 10 ml 04/22/21 22:00 04/27/21 23:15 Sodium Chloride 0.9% 10 Ml Flush Syringe IV 10 ml BID [place] Administration Sodium Chloride 10 ml 04/22/21 21:26 Sodium Chloride 0.9% 10 Ml Flush Syringe IV PRN PRN LINE FLUSH
[2021-04-28] MEDS: FAMOTIDINE 20 MG TAB PO SCH (10:52)
[2021-04-28] MEDS: ASPIRIN 325 MG TAB PO SCH (10:52)
[2021-04-28] MEDS: levETIRAcetam 500 MG/5 ML ORAL LIQD PO SCH ×2 (10:52→21:38)
[2021-04-28] MEDS: CLOPIDOGREL 75 MG TAB PO SCH (10:52)
[2021-04-28] MEDS: amLODIPine 10 MG TAB PO SCH (10:53)
--- NOTE | 2021-04-28 12:25 | Progress Note ---
<CHARLESKATHRINENola - Last Filed: 04/28/21 12:25> Assessment and Plan Assessment and plan: This is a 65-year-old male with CAD s/p CABG x3, ischemic cardiomyopathy with ejection fraction of 40 to 45%, hypertension, hyperlipidemia, CVA and diabetes who was admitted s/p cardiac arrest, leukocytosis, lactic acidosis, elevated troponin, hypochloremia, metabolic acidosis, acute hypoxic respiratory failure S/p cardiac arrest (NSTEMI) Acute hypoxic respiratory failure Acute kidney injury secondary to vasomotor nephropathy ? Brain injury ? Myoclonic jerks/Seizures Lactic acidosis (down trending) Elevated D-dimer CAD s/p CABG x3 Ischemic cardiomyopathy with EF of 40 to 45% Hypertension Hyperlipidemia CVA Diabetes -CCM, neurology, nephrology, cardiology consulted, appreciate recommendations -COVID-19 PCR negative -IV antibiotic -04/23 renal ultrasound shows no evidence of medical renal disease or hydronephrosis -04/22 echocardiogram shows moderately dilated left ventricle, left ventricular function severely decreased with LVEF of 20 to 25%, borderline concentric left ventricle hypertrophy, mildly dilated left atrium, mild MR, mild AR, mild TR, mild pulmonary hypertension, RVSP is 46 mmHg -04/23 renal calculated at 1.5 suggestive of ATN or prerenal state -04/24 EEG shows is abnormal due to diffuse background slowing noted throughout the recording, excessive beta activity noted bifrontally most likely drug-relat ed, suggestive of possible toxic metabolic encephalopathy, drug effect, possibility of postictal or post anoxic brain injury. -04/24 MRI brain findings consistent with diffuse anoxic injury, large chronic infarct in the right MCA distribution, chronic white matter changes which are nonspecific and consistent with chronic microvascular ischemic disease, no evidence of hemorrhage, mass, mass-effect. -04/24 MRI head shows no acute large vessel occlusion or extra-axial fluid collection -Aspirin, Lipitor -Heparin drip -IV Keppra -Continue home amlodipine, aspirin, Lipitor, Coreg, Plavix, hydralazine, Imdur -S/p 2L NS bolus in ED -s/p IV hydration -Hold home torsemide, lisinopril -Tube feeding -Trend CBC, BMP DVT/GI prophylaxis: SCDs to bilateral lower extremities while in bed, systemic anticoagulation with heparin drip, PPI Disposition: ICU, possible hospice The high probability of a clinically significant, sudden or life threatening deterioration of the [multi] system(s) required my full and direct attention, intervention and personal management. The aggregate critical care time was [35] minutes. This time is in addition to time spent performing reported procedures but includes the following: [x] Data Review and interpretation [x] Patient assessment and monitoring of vital signs [x] Documentation [x] Medication orders and management History Interval history: This is a 65-year-old male with CAD s/p stents and CABG, DM, CVA, diastolic heart failure, HTN, hypercholesterolemia presented to the emergency department on 04/22 s/p cardiac arrest. Upon arrival of fire department patient was placed in the ED and shocked x2. Upon arrival of EMS patient was found to be in asystole and was given epinephrine x3, Narcan, sodium bicarb x1 and ROSC was achieved. Upon arrival to the emergency department patient again went to cardiac arrest and received 1 round of ACLS with epi nephron x1 and bicarb x1. Work-up in the emergency department revealed leukocytosis, lactic acidosis, elevated troponin, hypochloremia, metabolic acidosis. Patient was admitted to the hospital service with consults to nephrology, cardiology, neurology and [facility]. 04/23: We will hold MOLLY inhibitor and diuretics in setting of DELMI. EEG, MRI, MRV, renal ultrasound, echocardiogram pending Patient sedated with propofol. At the time my examination patient is on assist control tidal volume 450, rate of 26, PEEP of 6 and FiO2 of 30%. Nephrology was consulted given acute kidney injury and neurology. 04/24: Patient's leukocytosis has improved, he has slight hyperkalemia today but his kidney function has worsened to BUN 28/creatinine 2.2 from 14/12.6. Lactic acidosis has improved. Patient had his EEG today and is scheduled for MRI brain and MRA/MRV. This time my examination patient is on assist control tidal volume 450, rate 26, PEEP of 6 and 30% FiO2. Patient is Felicita calculated at 1.5 suggestive of ATN or PNA renal state. Renal ultrasound negative. He has hypokalemia today which will be repleted. 04/25: Patient's leukocytosis has resolved today, patient he is he has hyperchloremia which was repleted. Kidney function has improved. We will remove his Cruz catheter today. [facility] will obtain bilateral Doppler ultrasounds and magnesium. We will discontinue IV fluids. 04/26: Neurology has signed off today, [facility] has spoken to his family who will upda te us with decision on CODE STATUS/goals of care patient was hypokalemic today which was repleted. Surgery consult will be placed by [facility]. CPAP trial today. Will panculture with next temperature spike. Possible CTA 04/27: General surgery will contact family regarding trach/PEG, per cardiology can add CCB or alpha-hector if needed cardioprotective regimen, patient's renal function continues to improve. This evening family informed RN that they elect to proceed with hospice. company manager informed. 04/28: Yesterday evening CM spoke to family regarding their decision to pursue hospice and did not want trach/PEG. company manager made referrals and this morning primary hospice informed case management that bed should be available this afternoon or evening. Slight downward trend of H/H. The time examination patient remained on room assist control tidal and 450, rate of 16, PEEP of 6 and 30% FiO2 and neurological exam was unchanged. Hospitalist Physical - Physical exam Narrative exam: General appearance: Present: other (Intubated) - EENT Eyes: Present: scleral icterus - Neck Neck: Absent: masses or JVD, cervical LAD - Respiratory Respiratory effort: normal Respiratory: bilateral: CTA - Cardiovascular Rhythm: regular Heart Sounds: Present: S1 & S2. Absent: systolic murmur, diastolic murmur - Extremities Extremities: no ischemia, pulses intact, pulses symmetrical, No edema, normal temperature, normal color Peripheral Pulses: within normal limits - Abdominal General gastrointestinal: soft, non-tender, non-distended, normal bowel sounds - Psychiatric Psychiatric: other (not interactive, does not follow commands, slight gag noted, no response to painful stimuli) - Neurologic Neurologic: no CNII-XII intact, no moves all extremities - Allied Health Allied health notes reviewed: nursing, RT, clinical social worker - Constitutional Vitals: Temp Pulse Resp BP Pulse Ox 98.1 F 62 27 H 125/55 99 04/28/21 03:22 04/28/21 11:25 04/28/21 11:25 04/28/21 11:25 04/28/21 11:25 General appearance: Present: other (Intubated) HEART Score - HEART Score Troponin: Troponin T 1.020 ng/mL (0.00-0.029) H* D 04/23/21 02:36 Results - Labs CBC & Chem 7: 06/05/21 04:42 04/27/21 05:01 Labs: Laboratory Last Values WBC 9.0 K/mm3 (4.5-11.0) 04/26/21 04:49 RBC 3.37 M/mm3 (3.65-5.03) L 04/26/21 04:49 Hgb 10.3 gm/dl (11.8-15.2) L 04/28/21 04:42 Hct 30.3 % (35.5-45.6) L 04/28/21 04:42 MCV 97 fl (84-94) H 04/26/21 04:49 MCH 33 pg (28-32) H 04/26/21 04:49 MCHC 34 % (32-34) 04/26/21 04:49 RDW 14.7 % (13.2-15.2) 04/26/21 04:49 Plt Count 174 K/mm3 (140-440) 04/28/21 04:42 Lymph % (Auto) 3.6 % (13.4-35.0) L 04/23/21 02:36 Rains % (Auto) 6.7 % (0.0-7.3) 04/23/21 02:36 Eos % (Auto) 0.0 % (0.0-4.3) 04/23/21 02:36 Baso % (Auto) 0.3 % (0.0-1.8) 04/23/21 02:36 Lymph # (Auto) 0.5 K/mm3 (1.2-5.4) L 04/23/21 02:36 Rains # (Auto) 1.0 K/mm3 (0.0-0.8) H 04/23/21 02:36 Eos # (Auto) 0.0 K/mm3 (0.0-0.4) 04/23/21 02:36 Baso # (Auto) 0.0 K/mm3 (0.0-0.1) 04/23/21 02:36 Seg Neutrophils % 89.4 % (40.0-70.0) H 04/23/21 02:36 Seg Neutrophils # 13.0 K/mm3 (1.8-7.7) H 04/23/21 02:36 PT 14.9 Sec. (12.2-14.9) 04/22/21 18:12 INR 1.17 (0.87-1.13) H 04/22/21 18:12 APTT 36.5 Sec. (24.2-36.6) 04/22/21 18:12 D-Dimer 8003.00 ng/mlDDU (0-234) H 04/23/21 08:58 Heparin Anti-Xa Level 0.35 U.I./ml (0.3-0.7) 04/27/21 17:54 ABG pH 7.495 (7.320-7.450) H 04/26/21 05:00 POC ABG pCO2 35.9 mmHg (32.0-48.0) 04/26/21 05:00 POC ABG pO2 90.8 mmHg (83-108) 04/26/21 05:00 POC ABG HCO3 27.1 04/26/21 05:00 ABG O2 Saturation 97.3 (0-100) 04/26/21 05:00 POC ABG Base Excess 3.8 04/26/21 05:00 ABG Hemoglobin 11.6 (12.0-17.5) L 04/26/21 05:00 ABG Oxyhemoglobin 96.5 (94-98) 04/26/21 05:00 ABG Methemoglobin 0.3 (0.0-1.5) 04/26/21 05:00 ABG Sodium 137.1 mmol/L (136.0-145.0) 04/26/21 05:00 ABG Potassium 4.2 mmol/L (3.40-4.50) 04/26/21 05:00 ABG Chloride 101.0 mmol/L (98-107) 04/26/21 05:00 ABG Glucose 134 mg/dL (65-95) H 04/26/21 05:00 Carboxyhemoglobin 0.5 (0.5-1.5) 04/26/21 05:00 FiO2 % 30.0 04/26/21 05:00 Sodium 138 mmol/L (137-145) 04/27/21 05:01 Potassium 4.5 mmol/L (3.6-5.0) 04/27/21 05:01 Chloride 99.2 mmol/L (98-107) 04/27/21 05:01 Carbon Dioxide 29 mmol/L (22-30) 04/27/21 05:01 Anion Gap 14 mmol/L 04/27/21 05:01 BUN 40 mg/dL (9-20) H 04/27/21 05:01 Creatinine 1.4 mg/dL (0.8-1.3) H 04/27/21 05:01 Estimated GFR > 60 ml/min 04/27/21 05:01 BUN/Creatinine Ratio 29 % 04/27/21 05:01 Glucose 125 mg/dL (75-100) H 04/27/21 05:01 POC Glucose 114 mg/dL (70-105) H 04/28/21 11:45 Lactic Acid 1.40 mmol/L (0.7-2.0) 04/24/21 07:03 Calcium 8.9 mg/dL (8.4-10.2) 04/27/21 05:01 Magnesium 1.90 mg/dL (1.7-2.3) 04/26/21 04:49 Ferritin 185.5 ng/mL (30.0-300.0) 04/23/21 08:58 Lactate Dehydrogenase 546 units/L (91-180) H 04/23/21 08:58 Troponin T 1.020 ng/mL (0.00-0.029) H* D 04/23/21 02:36 C-Reactive Protein 2.20 mg/dL (0.00-1.30) H 04/23/21 08:58 NT-Pro-B Natriuret Pep 2448 pg/mL (0-900) H 04/22/21 18:12 Triglycerides 107 mg/dL (2-149) 04/22/21 18:12 Cholesterol 136 mg/dL (50-199) 04/22/21 18:12 LDL Cholesterol Direct 78 mg/dL (50-130) 04/22/21 18:12 HDL Cholesterol 58 mg/dL (40-59) 04/22/21 18:12 Cholesterol/HDL Ratio 2.34 % 04/22/21 18:12 Procalcitonin 3.46 ng/mL (<0.15) 04/23/21 08:58 Arterial Blood Glucose 134 mg/dL (65-95) H 04/26/21 05:00 Arterial Blood Ionized Calcium 4.6 mg/dL (4.6-5.3) 04/26/21 05:00 Urine Creatinine 90.4 mg/dL (0.1-20.0) H 04/23/21 13:46 Urine Sodium 123 mmol/L 04/23/21 13:46 Urine Total Protein 103 mg/dL (5-11.8) H 04/23/21 13:46 Coronavirus (PCR) Negative (Negative) 04/23/21 Unknown Microbiology: Microbiology 04/22/21 18:25 Peripheral/Venous Blood Culture - Final NO GROWTH AFTER 5 DAYS 04/22/21 18:12 Peripheral/Venous Blood Culture - Final NO GROWTH AFTER 5 DAYS Cruz/IV: Voiding Method Incontinent Active Medications - Current Medications Current Medications: Generic Name Dose Route Start Last Admin Trade Name Freq PRN Reason Stop Dose Admin Acetaminophen 650 mg 04/22/21 21:26 Acetaminophen 325 Mg Tab PO Q4H PRN Pain MILD(1-3)/Fever >100.5/GIORDANO Albuterol 2.5 mg 04/22/21 21:26 Albuterol 2.5 Mg/3 Ml Nebu IH Q3HRT PRN Shortness Of Breath Albuterol/Ipratropium 1 ampul 04/23/21 02:00 04/28/21 07:35 Ipratropium/Albuterol Sulfate 3 Ml Ampul.Neb IH 1 ampul Q6HRT SHE[facility] Administration Amlodipine Besylate 10 mg 04/23/21 10:00 04/28/21 10:53 Amlodipine 10 Mg Tab PO Not Given QDAY SHE[place]TON Lipase/Protease/Amylase 1 each 04/23/21 09:33 Lipase 10,500/Protease 25,000/Amylase 43,750 (Units) Dr Machado FEEDTUBE PRN PRN For Clogged Feeding Tube Aspirin 325 mg 04/24/21 10:00 04/28/21 10:52 Aspirin 325 Mg Tab PO 325 mg QDAY SHE[place] Administration Atorvastatin Calcium 80 mg 04/22/21 22:00 04/27/21 23:16 Atorvastatin 40 Mg Tab PO 80 mg QHS SHE[facility] Administration Carvedilol 25 mg 04/23/21 08:00 04/28/21 08:49 Carvedilol 25 Mg Tab PO 25 mg DAILY@0800 [facility] Administration Clopidogrel Bisulfate 75 mg 04/23/21 10:00 04/28/21 10:52 Clopidogrel 75 Mg Tab PO 75 mg QDAY SHE[place] Administration Dextrose 0 ml 04/22/21 21:26 Dextrose 50% In Water (25gm) 50 Ml Syringe IV Q30MIN PRN Hypoglycemia Protocol Famotidine 20 mg 04/25/21 10:00 04/28/21 10:52 Famotidine 20 Mg Tab PO 20 mg DAILY [facility] Administration Heparin Sodium (Porcine) 4,000 unit 04/22/21 21:39 Heparin 10,000 Units/10 Ml Vial 40 unit/kg (4000 unit) IV Q6H PRN Anti-Xa Assay < 0.1 units/ml Hydralazine HCl 10 mg 04/22/21 21:35 04/26/21 02:22 Hydralazine 20 Mg/1 Ml Inj IV 10 mg Q6H PRN Administration htn Hydralazine HCl 100 mg 04/27/21 09:30 04/28/21 05:12 Hydralazine 100 Mg Tab PO 100 mg Q8HR [facility] Administration Propofol 1,000 mg in 100 mls @ 3 mls/hr 04/22/21 19:00 04/24/21 19:06 Diprivan 10 Mg/Ml IV 0 mcg/kg/min TITR SHE[place]TON 0 mls/hr Titration Protocol 5 MCG/KG/MIN Heparin Sodium/Sodium Chloride 25,000 unit in 500 mls @ 20 mls/hr 04/22/21 22:00 04/28/21 00:15 Heparin/ 0.45% Nacl-25,000 Unit/500 Ml IV 1,100 units/hr TITRATE SHE[place]TON 22 mls/hr Administration Protocol 1,000 UNITS/HR Insulin Human Lispro 0 unit 04/23/21 00:00 04/28/21 05:15 Insulin Lispro 100 Unit/Ml SUB-Q Not Given Q6HR [facility] Protocol Isosorbide Mononitrate 40 mg 04/24/21 09:00 04/28/21 05:12 Isosorbide Mononitrate 20 Mg Tab PO 40 mg Q8HR [facility] Administration Levetiracetam 750 mg 04/27/21 10:00 04/28/21 10:52 Levetiracetam 500 Mg/5 Ml Oral Liqd PO 750 mg BID SHE[place] Administration Lorazepam 2 mg 04/22/21 22:52 04/26/21 05:53 Lorazepam 2 Mg/Ml Vial IV 2 mg Q4H PRN Administration Seizures Nitroglycerin 0.4 mg 04/22/21 21:26 Nitroglycerin 0.4 Mg Tab Subl SL .Q5MIN PRN Chest Pain Ondansetron HCl 4 mg 04/22/21 21:26 Ondansetron 4 Mg/2 Ml Inj IV Q8H PRN Nausea And Vomiting Simple Syrup 15 ml 04/23/21 09:33 Simple Syrup 15 Ml FEEDTUBE PRN PRN Hypoglycemia Simple Syrup 30 ml 04/23/21 09:33 Simple Syrup 15 Ml FEEDTUBE PRN PRN Hypoglycemia Sodium Bicarbonate 325 mg 04/23/21 09:33 Sodium Bicarbonate 325 Mg Tab FEEDTUBE PRN PRN For Clogged Feeding Tube Sodium Chloride 10 ml 04/22/21 22:00 04/28/21 10:59 Sodium Chloride 0.9% 10 Ml Flush Syringe IV 10 ml BID SHE[place] Administration Sodium Chloride 10 ml 04/22/21 21:26 Sodium Chloride 0.9% 10 Ml Flush Syringe IV PRN PRN LINE FLUSH Nutrition/Malnutrition Assess - Dietary Evaluation Nutrition/Malnutrition Findings: Nutrition Notes Start: 04/23/21 08:22 Freq: Status: Active Protocol: Document 04/27/21 10:44 CW (Rec: 04/27/21 10:50 CW [email or web address]) Nutrition Notes Initial or Follow up Reassessment Current Diagnosis Diabetes,Hypertension,Heart Failure,Stroke Other Pertinent Diagnosis Cardiac arrest, AMI Current Diet Vital AF 1.2 at 65 ml/hr Labs/Tests BUN 40 Cr 1.4 BG 125 Pertinent Medications reviewed Height 6 ft Weight 102.6 kg [place] Body Weight (kg) 80.90 BMI 30.7 Weight change and time frame weight fluctuations noted Weight Status Obese Subjective/Other Information F/U for TF tolerance. TF currently running at goal of 65 ml/hr. No reprots of TF intolerance. Percent of energy/protein needs met: 100%/73% Burn Absent Trauma Absent GI Symptoms None Current % PO Negligible Minimum of two criteria No physical signs of malnutrition #1 Nutrition Diagnosis Inadequate oral intake Diagnosis Progress(for reassessment Continues documentation) Is patient on ventilator? Yes Is Patient Ambulatory and/or Out of Bed No REE-([facility]-confined to bed) 2223.804 Kcal/Kg value to use for calculation 18 Approximate Energy Requirements Using 1847 kcal/Kg Calculation Used for Recommendations Kcal/kg Additional Notes Protein needs are >161g (>2g IBW) Fluid needs are 1ml/kcal Nutrition Intervention Change Diet Order: Continue Nutrition Support: Vital 1.2 at 65ml/h Flush with 100ml q4h Kcal 1,872 Protein (gm) 117 Fluid (mL) 1,260 Goal #1 Meet at least 70% of kcal and protein needs via TF Anticipated Discharge Needs: Unable to determine at this time Follow-Up By: 04/30/21 Additional Comments F/U for TF tolerance <ISSA MORROW O - Last Filed: 04/28/21 18:34> History Interval history: This is a 65-year-old male with CAD s/p CABG x3, ischemic cardiomyopathy with ejection fraction of 40 to 45%, hypertension, hyperlipidemia, CVA and diabetes who was admitted s/p cardiac arrest, leukocytosis, lactic acidosis, elevated troponin, hypochloremia, metabolic acidosis, acute hypoxic respiratory failure. Family has decided on hospice. Plan is to go to Hospice. I saw and evaluated the patient and discussed with Nurse Practitioner and Implementation Project Manager. . I agree with the findings and the plan of care as documented in the Nurse Practitioner's note. Hospitalist Physical - Constitutional Vitals: Temp Pulse Resp BP Pulse Ox 97.5 F L 58 L 19 115/54 98 04/28/21 16:00 04/28/21 17:00 04/28/21 17:00 04/28/21 17:00 04/28/21 17:00 HEART Score - HEART Score Troponin: Troponin T 1.020 ng/mL (0.00-0.029) H* D 04/23/21 02:36 Results - Labs CBC & Chem 7: 04/28/21 04:42 04/27/21 05:01 Labs: Laboratory Last Values WBC 9.0 K/mm3 (4.5-11.0) 04/26/21 04:49 RBC 3.37 M/mm3 (3.65-5.03) L 04/26/21 04:49 Hgb 10.3 gm/dl (11.8-15.2) L 04/28/21 04:42 Hct 30.3 % (35.5-45.6) L 04/28/21 04:42 MCV 97 fl (84-94) H 04/26/21 04:49 MCH 33 pg (28-32) H 04/26/21 04:49 MCHC 34 % (32-34) 04/26/21 04:49 RDW 14.7 % (13.2-15.2) 04/26/21 04:49 Plt Count 174 K/mm3 (140-440) 04/28/21 04:42 Lymph % (Auto) 3.6 % (13.4-35.0) L 04/23/21 02:36 Rains % (Auto) 6.7 % (0.0-7.3) 04/23/21 02:36 Eos % (Auto) 0.0 % (0.0-4.3) 04/23/21 02:36 Baso % (Auto) 0.3 % (0.0-1.8) 04/23/21 02:36 Lymph # (Auto) 0.5 K/mm3 (1.2-5.4) L 04/23/21 02:36 Rains # (Auto) 1.0 K/mm3 (0.0-0.8) H 04/23/21 02:36 Eos # (Auto) 0.0 K/mm3 (0.0-0.4) 04/23/21 02:36 Baso # (Auto) 0.0 K/mm3 (0.0-0.1) 04/23/21 02:36 Seg Neutrophils % 89.4 % (40.0-70.0) H 04/23/21 02:36 Seg Neutrophils # 13.0 K/mm3 (1.8-7.7) H 04/23/21 02:36 PT 14.9 Sec. (12.2-14.9) 04/22/21 18:12 INR 1.17 (0.87-1.13) H 04/22/21 18:12 APTT 36.5 Sec. (24.2-36.6) 04/22/21 18:12 D-Dimer 8003.00 ng/mlDDU (0-234) H 04/23/21 08:58 Heparin Anti-Xa Level 0.35 U.I./ml (0.3-0.7) 04/27/21 17:54 ABG pH 7.478 (7.320-7.450) H 04/28/21 04:22 POC ABG pCO2 38.9 mmHg (32.0-48.0) 04/28/21 04:22 POC ABG pO2 85.8 mmHg (83-108) 04/28/21 04:22 POC ABG HCO3 28.2 04/28/21 04:22 ABG O2 Saturation 96.8 (0-100) 04/28/21 04:22 POC ABG Base Excess 4.4 04/28/21 04:22 ABG Hemoglobin 10.2 (12.0-17.5) L 04/28/21 04:22 ABG Oxyhemoglobin 95.7 (94-98) 04/28/21 04:22 ABG Methemoglobin 0.3 (0.0-1.5) 04/28/21 04:22 ABG Sodium 132.9 mmol/L (136.0-145.0) L 04/28/21 04:22 ABG Potassium 4.5 mmol/L (3.40-4.50) 04/28/21 04:22 ABG Chloride 102.0 mmol/L (98-107) 04/28/21 04:22 ABG Glucose 139 mg/dL (65-95) H 04/28/21 04:22 Carboxyhemoglobin 0.8 (0.5-1.5) 04/28/21 04:22 FiO2 % 30.0 04/28/21 04:22 Sodium 138 mmol/L (137-145) 04/27/21 05:01 Potassium 4.5 mmol/L (3.6-5.0) 04/27/21 05:01 Chloride 99.2 mmol/L (98-107) 04/27/21 05:01 Carbon Dioxide 29 mmol/L (22-30) 04/27/21 05:01 Anion Gap 14 mmol/L 04/27/21 05:01 BUN 40 mg/dL (9-20) H 04/27/21 05:01 Creatinine 1.4 mg/dL (0.8-1.3) H 04/27/21 05:01 Estimated GFR > 60 ml/min 04/27/21 05:01 BUN/Creatinine Ratio 29 % 04/27/21 05:01 Glucose 125 mg/dL (75-100) H 04/27/21 05:01 POC Glucose 114 mg/dL (70-105) H 04/28/21 11:45 Lactic Acid 1.40 mmol/L (0.7-2.0) 04/24/21 07:03 Calcium 8.9 mg/dL (8.4-10.2) 04/27/21 05:01 Magnesium 1.90 mg/dL (1.7-2.3) 04/26/21 04:49 Ferritin 185.5 ng/mL (30.0-300.0) 04/23/21 08:58 Lactate Dehydrogenase 546 units/L (91-180) H 04/23/21 08:58 Troponin T 1.020 ng/mL (0.00-0.029) H* D 04/23/21 02:36 C-Reactive Protein 2.20 mg/dL (0.00-1.30) H 04/23/21 08:58 NT-Pro-B Natriuret Pep 2448 pg/mL (0-900) H 04/22/21 18:12 Triglycerides 107 mg/dL (2-149) 04/22/21 18:12 Cholesterol 136 mg/dL (50-199) 04/22/21 18:12 LDL Cholesterol Direct 78 mg/dL (50-130) 04/22/21 18:12 HDL Cholesterol 58 mg/dL (40-59) 04/22/21 18:12 Cholesterol/HDL Ratio 2.34 % 04/22/21 18:12 Procalcitonin 3.46 ng/mL (<0.15) 04/23/21 08:58 Arterial Blood Glucose 139 mg/dL (65-95) H 04/28/21 04:22 Arterial Blood Ionized Calcium 4.6 mg/dL (4.6-5.3) 04/26/21 05:00 Urine Creatinine 90.4 mg/dL (0.1-20.0) H 04/23/21 13:46 Urine Sodium 123 mmol/L 04/23/21 13:46 Urine Total Protein 103 mg/dL (5-11.8) H 04/23/21 13:46 Coronavirus (PCR) Negative (Negative) 04/23/21 Unknown Microbiology: Microbiology 04/22/21 18:25 Peripheral/Venous Blood Culture - Final NO GROWTH AFTER 5 DAYS 04/22/21 18:12 Peripheral/Venous Blood Culture - Final NO GROWTH AFTER 5 DAYS Cruz/IV: Voiding Method Incontinent Active Medications - Current Medications Current Medications: Generic Name Dose Route Start Last Admin Trade Name Freq PRN Reason Stop Dose Admin Acetaminophen 650 mg 04/22/21 21:26 Acetaminophen 325 Mg Tab PO Q4H PRN Pain MILD(1-3)/Fever >100.5/GIORDANO Albuterol 2.5 mg 04/22/21 21:26 Albuterol 2.5 Mg/3 Ml Nebu IH Q3HRT PRN Shortness Of Breath Albuterol/Ipratropium 1 ampul 04/23/21 02:00 04/28/21 13:53 Ipratropium/Albuterol Sulfate 3 Ml Ampul.Neb IH 1 ampul Q6HRT [facility] Administration Amlodipine Besylate 10 mg 04/23/21 10:00 04/28/21 10:53 Amlodipine 10 Mg Tab PO Not Given QDAY [facility] Lipase/Protease/Amylase 1 each 04/23/21 09:33 Lipase 10,500/Protease 25,000/Amylase 43,750 (Units) Dr Machado FEEDTUBE PRN PRN For Clogged Feeding Tube Aspirin 325 mg 04/24/21 10:00 04/28/21 10:52 Aspirin 325 Mg Tab PO 325 mg QDAY SHE[place] Administration Atorvastatin Calcium 80 mg 04/22/21 22:00 04/27/21 23:16 Atorvastatin 40 Mg Tab PO 80 mg QHS SHE[facility] Administration Carvedilol 25 mg 04/23/21 08:00 04/28/21 08:49 Carvedilol 25 Mg Tab PO 25 mg DAILY@0800 [facility] Administration Clopidogrel Bisulfate 75 mg 04/23/21 10:00 04/28/21 10:52 Clopidogrel 75 Mg Tab PO 75 mg QDAY SHELTON Administration Dextrose 0 ml 04/22/21 21:26 Dextrose 50% In Water (25gm) 50 Ml Syringe IV Q30MIN PRN Hypoglycemia Protocol Famotidine 20 mg 04/25/21 10:00 04/28/21 10:52 Famotidine 20 Mg Tab PO 20 mg DAILY [facility] Administration Heparin Sodium (Porcine) 4,000 unit 04/22/21 21:39 Heparin 10,000 Units/10 Ml Vial 40 unit/kg (4000 unit) IV Q6H PRN Anti-Xa Assay < 0.1 units/ml Hydralazine HCl 10 mg 04/22/21 21:35 04/26/21 02:22 Hydralazine 20 Mg/1 Ml Inj IV 10 mg Q6H PRN Administration htn Hydralazine HCl 100 mg 04/27/21 09:30 04/28/21 14:47 Hydralazine 100 Mg Tab PO 100 mg Q8HR [facility] Administration Propofol 1,000 mg in 100 mls @ 3 mls/hr 04/22/21 19:00 04/24/21 19:06 Diprivan 10 Mg/Ml IV 0 mcg/kg/min TITR SHE[place] 0 mls/hr Titration Protocol 5 MCG/KG/MIN Heparin Sodium/Sodium Chloride 25,000 unit in 500 mls @ 20 mls/hr 04/22/21 22 :00 04/28/21 00:15 Heparin/ 0.45% Nacl-25,000 Unit/500 Ml IV 1,100 units/hr TITRATE SHE[facility] 22 mls/hr Administration Protocol 1,000 UNITS/HR Insulin Human Lispro 0 unit 04/23/21 00:00 04/28/21 12:52 Insulin Lispro 100 Unit/Ml SUB-Q Not Given Q6HR [facility] Protocol Isosorbide Mononitrate 40 mg 04/24/21 09:00 04/28/21 14:47 Isosorbide Mononitrate 20 Mg Tab PO 40 mg Q8HR [place] Administration Levetiracetam 750 mg 04/27/21 10:00 04/28/21 10:52 Levetiracetam 500 Mg/5 Ml Oral Liqd PO 750 mg BID [place] Administration Lorazepam 2 mg 04/22/21 22:52 04/26/21 05:53 Lorazepam 2 Mg/Ml Vial IV 2 mg Q4H PRN Administration Seizures Nitroglycerin 0.4 mg 04/22/21 21:26 Nitroglycerin 0.4 Mg Tab Subl SL .Q5MIN PRN Chest Pain Ondansetron HCl 4 mg 04/22/21 21:26 Ondansetron 4 Mg/2 Ml Inj IV Q8H PRN Nausea And Vomiting Simple Syrup 15 ml 04/23/21 09:33 Simple Syrup 15 Ml FEEDTUBE PRN PRN Hypoglycemia Simple Syrup 30 ml 04/23/21 09:33 Simple Syrup 15 Ml FEEDTUBE PRN PRN Hypoglycemia Sodium Bicarbonate 325 mg 04/23/21 09:33 Sodium Bicarbonate 325 Mg Tab FEEDTUBE PRN PRN For Clogged Feeding Tube Sodium Chloride 10 ml 04/22/21 22:00 04/28/21 10:59 Sodium Chloride 0.9% 10 Ml Flush Syringe IV 10 ml BID [place] Administration Sodium Chloride 10 ml 04/22/21 21:26 Sodium Chloride 0.9% 10 Ml Flush Syringe IV PRN PRN LINE FLUSH Nutrition/Malnutrition Assess - Dietary Evaluation Nutrition/Malnutrition Findings: Nutrition Notes Start: 04/23/21 08:22 Freq: Status: Active Protocol: Document 04/27/21 10:44 CW (Rec: 04/27/21 10:50 CW [id number]) Nutrition Notes Initial or Follow up Reassessment Current Diagnosis Diabetes,Hypertension,Heart Failure,Stroke Other Pertinent Diagnosis Cardiac arrest, AMI Current Diet Vital AF 1.2 at 65 ml/hr Labs/Tests BUN 40 Cr 1.4 BG 125 Pertinent Medications reviewed Height 6 ft Weight 102.6 kg [place] Body Weight (kg) 80.90 BMI 30.7 Weight change and time frame weight fluctuations noted Weight Status Obese Subjective/Other Information F/U for TF tolerance. TF currently running at goal of 65 ml/hr. No reprots of TF intolerance. Percent of energy/protein needs met: 100%/73% Burn Absent Trauma Absent GI Symptoms None Current % PO Negligible Minimum of two criteria No physical signs of malnutrition #1 Nutrition Diagnosis Inadequate oral intake Diagnosis Progress(for reassessment Continues documentation) Is patient on ventilator? Yes Is Patient Ambulatory and/or Out of Bed No REE-([facility]-confined to bed) 2223.804 Kcal/Kg value to use for calculation 18 Approximate Energy Requirements Using 1847 kcal/Kg Calculation Used for Recommendations Kcal/kg Additional Notes Protein needs are >161g (>2g IBW) Fluid needs are 1ml/kcal Nutrition Intervention Change Diet Order: Continue Nutrition Support: Vital 1.2 at 65ml/h Flush with 100ml q4h Kcal 1,872 Protein (gm) 117 Fluid (mL) 1,260 Goal #1 Meet at least 70% of kcal and protein needs via TF Anticipated Discharge Needs: Unable to determine at this time Follow-Up By: 04/30/21 Additional Comments F/U for TF tolerance
--- NOTE | 2021-04-28 12:30 | Discharge Summary ---
Providers - Providers Date of Admission: 04/22/21 21:20 Attending physician: ISSA MORROW 04/22/21 Consult to Cardiac Rehabilitation [CONS] Routine Reason For Exam: Phase 1 04/22/21 21:26 Consult to Dietitian/Nutrition [CONS] Routine Physician Instructions: Reason For Exam: Reason for Consult: Diet education Consult to Physician [CONS] Routine Comment: Dr. Simmons spoke with Dr. Álvarez @ 2123 Consulting Provider: ZEN ÁLVAREZ Physician Instructions: Reason For Exam: Cardiac arrest Consult to Physician [CONS] Stat Comment: Dr. Simmons spoke with Dr. Álvarez @ 2123 Consulting Provider: ZEN ÁLVAREZ Physician Instructions: Reason For Exam: cardiac arrest 04/22/21 21:35 Consult to Physician [CONS] Routine Comment: Spoke with Dr. Epps @ 2139 Consulting Provider: CODY CREWS Physician Instructions: Reason For Exam: Cardiac arrest 04/23/21 08:40 Consult to Physician [CONS] Routine Comment: Consulting Provider: ELBA CESPEDES Physician Instructions: Reason For Exam: s/p cardiac arrest, seizure 04/23/21 08:56 Consult to Dietitian/Nutrition [CONS] Routine Physician Instructions: Reason For Exam: Reason for Consult: Write/Manage Tube Feeding 04/26/21 15:04 Consult to Physician [CONS] Routine Comment: Consulting Provider: GEO TERAN Physician Instructions: Reason For Exam: Tracheostomy & PEG placement Primary care physician: HISTOLOGICAL ILLUSTRATOR Hospitalization Condition: Stable Hospital course: This is a 65-year-old male with CAD s/p stents and CABG, DM, CVA, diastolic heart failure, HTN, hypercholesterolemia presented to the emergency department on 04/22 s/p cardiac arrest. Upon arrival of fire department patient was placed in the ED and shocked x2. Upon arrival of EMS patient was found to be in asystole and was given epinephrine x3, Narcan, sodium bicarb x1 and ROSC was achieved. Upon arrival to the emergency department patient again went to cardiac arrest and received 1 round of ACLS with epi nephron x1 and bicarb x1. Work-up in the emergency department revealed leukocytosis, lactic acidosis, elevated troponin, hypochloremia, metabolic acidosis. Patient was admitted to [facility] service with consults to nephrology, cardiology, neurology and [facility]. On 04/23 we held MOLLY inhibitor and diuretics in setting of DELMI. EEG, MRI, MRV, renal ultrasound, echocardiogram pending and Nephrology was consulted given acute kidney injury and neurology. On 04/24 leukocytosis has improved, he has slight hyperkalemia today but his kidney function has worsened to BUN 28/creatinine 2.2 from 14/12.6, lactic acidosis has improved, atfrank had his EEG today and is scheduled for MRI brain and MRA/MRV, patient is feNA calculated at 1.5 suggestive of ATN or PNA renal state, renal ultrasound negative and hypokalemia was repleted. On 04/25 leukocytosis resolved, hypokalemia was repleted, kidney function has improved, Cruz catheter removed today.and bilateral Doppler ultrasounds and magnesium ordered. 04/26 patient was hypokalemic which was treated, surgery was consulted for trach/PEG and a CPAP trial was contacted which he failed. On 04/27 patient family was contacted by surgery for consent for the trach/PEG. In the evening patient's family updated the nurse the decision to pursue hospice and not pursue trach/PEG and case management was informed. Per case management notes patient should be accepted to [facility] hospice this evening. Care will be transferred to hospice. Assessment and Plan S/p cardiac arrest (NSTEMI) Acute hypoxic respiratory failure Acute kidney injury secondary to vasomotor nephropathy ? Brain injury ? Myoclonic jerks/Seizures Lactic acidosis (down trending) Elevated D-dimer CAD s/p CABG x3 Ischemic cardiomyopathy with EF of 40 to 45% Hypertension Hyperlipidemia CVA Diabetes -CCM, neurology, nephrology, cardiology consulted, appreciate recommendations -COVID-19 PCR negative -IV antibiotic -04/23 renal ultrasound shows no evidence of medical renal disease or hydronephrosis -04/22 echocardiogram shows moderately dilated left ventricle, left ventricular function severely decreased with LVEF of 20 to 25%, borderline concentric left ventricle hypertrophy, mildly dilated left atrium, mild MR, mild AR, mild TR, mild pulmonary hypertension, RVSP is 46 mmHg -04/23 renal calculated at 1.5 suggestive of ATN or prerenal state -04/24 EEG shows is abnormal due to diffuse background slowing noted throughout the recording, excessive beta activity noted bifrontally most likely drug- related, suggestive of possible toxic metabolic encephalopathy, drug effect, possibility of postictal or post anoxic brain injury. -04/24 MRI brain findings consistent with diffuse anoxic injury, large chronic infarct in the right MCA distribution, chronic white matter changes which are nonspecific and consistent with chronic microvascular ischemic disease, no evidence of hemorrhage, mass, mass-effect. -04/24 MRI head shows no acute large vessel occlusion or extra-axial fluid collection -Aspirin, Lipitor -Heparin drip -IV Keppra -Continue home amlodipine, aspirin, Lipitor, Coreg, Plavix, hydralazine, Imdur -S/p 2L NS bolus in ED -s/p IV hydration -Hold home torsemide, lisinopril -Tube feeding -Trend CBC, BMP Disposition: [id number] ([facility]) Final Discharge Diagnosis (Prints w/discharge instructions): S/p cardiac arrest (NSTEMI). Acute hypoxic respiratory failure. Acute kidney injury secondary to vasomotor nephropathy. Anoxic Brain injury. s/p Myoclonic jerks/Seizures. L actic acidosis (down trending). Elevated D-dimer. CAD s/p CABG x3. Ischemic cardiomyopathy with EF of 40 to 45%. Hypertension. Hyperlipidemia. CVA. Diabetes Time spent for discharge: 35 Core Measure Documentation - Palliative Care Palliative Care/ Comfort Measures: Hospice Care Exam - Physical Exam Narrative exam: General appearance: Present: other (Intubated) - EENT Eyes: Present: scleral icterus - Neck Neck: Absent: masses or JVD, cervical LAD - Respiratory Respiratory effort: normal Respiratory: bilateral: CTA - Cardiovascular Rhythm: regular Heart Sounds: Present: S1 & S2. Absent: systolic murmur, diastolic murmur - Extremities Extremities: no ischemia, pulses intact, pulses symmetrical, No edema, normal temperature, normal color Peripheral Pulses: within normal limits - Abdominal General gastrointestinal: soft, non-tender, non-distended, normal bowel sounds - Psychiatric Psychiatric: other (not interactive, does not follow commands, slight gag noted, no response to painful stimuli) - Neurologic Neurologic: no CNII-XII intact, no moves all extremities - Allied Health Allied health notes reviewed: nursing, RT, social contact worker - Constitutional Vitals: Temp Pulse Resp BP Pulse Ox 98.1 F 62 27 H 125/55 99 04/28/21 03:22 04/28/21 11:25 04/28/21 11:25 04/28/21 11:25 04/28/21 11:25 Plan Activity: advance as tolerated Diet: per dietitian instruction Additional Instructions: Will be transferred to hospice Follow up with: PRIMARY CAREMD [Primary Care Provider] - 3-5 Days
--- NOTE | 2021-04-28 13:13 | Progress Note ---
Assessment and Plan Cardiac arrest with ROSC Acute hypoxemic respiratory failure Acute kidney injury secondary to vasomotor nephropathy COVID-19 PUI NSTEMI Acute Encephalopathy Myoclonic jerks vs Seizures Lactic acidosis Elevated D-dimer CAD s/p CABG x3 Ischemic cardiomyopathy with EF of 40 to 45% Hypertension Hyperlipidemia CVA Diabetes type II (will follow families wishes and get Hospice evaluation) - shelter case manager to arrange hospice transfer - no new issues otherwise, continue care as below; - watch clinically off AB's re: fevers / WBC - continue IV Heparin re: NSTEMI and follow platelets - follow neurology evaluation - prn vasopressors for target MAP > 65 mmHg - inotropic support per cardiology recommendations - continue to wean supplemental oxygen for target O2 sat's > 90% acutely - VAP bundle addressed - continue lung protective strategies - continue bronchodilators with pulmonary hygiene per RT - wean per pulmonary driven protocols otherwise - continue Daily SAT and SBT assessment as tolerated - continue accuchecks with glycemic control per SSI (While critically ill target blood glucose of 140-180 mg/dL; avoid hypoglycemia) - sedation prn for target RASS 0 to -1 - avoid nephrotoxins, renally dose all medications - continue to avoid benzodiazepine's, reduce the possibility of delirium - AB's per ID rec's - prn analgesia per CPOT score - Maintenance of sleep-wake cycle, avoid delirium - enteral nutritional support at goal rate as tolerated - G.I. & VTE prophylaxis - PT/OT/ROM exercises - mobility protocols for pressure ulcer prophylaxis - Monitor hemodynamics closely - continue other care per attending / other consultants - discharge planning ongoing concurrently COVID SPECIFIC INTERVENTIONS - Remdesivir as per ID/Pulmonary developed protocols - consider systemic steroids for severe COVID-19 infection empirically - follow repeat COVID tests results - zinc and vitamin C supplementation - Monitor inflammatory markers per facility protocol - ferritin, Ddimer, CRP - consider therapeutic anticoagulation per system Protocol based on d-dimer and clinical considerations - Continue contact and airborne isolation .... Re-evaluate in am & prn CONDITION: CRITICAL PROGNOSIS: GUARDED CODE STATUS: FULL CODE The high probability of a clinically significant, sudden or life-threatening deterioration of the [respiratory, cardiovascular & neurologic] system(s) required my full and direct attention, intervention and personal management. The aggregate critical care time was [35] minutes without overlap. Time includes spent on; [x] Data Review and interpretation [x] Patient assessment and monitoring of vital signs [x] Documentation [x] Medication orders and management Subjective Date of service: 04/28/21 Principal diagnosis: Cardiac; DELMI; Ac hypoxemic resp failure; Ac Encephalopathy; HFrEF; DM II Interval history: Patient is seen today for: Cardiac arrest with ROSC; DELMI; Acute hypoxemic respiratory failure; PUI COVID-19; NSTEMI; Acute Encephalopathy Myoclonic jerks vs Seizures; Ischemic cardiomyopathy with EF of 20 to 25%; DM II; H/O CVA Seen and examined at bedside; 24hour events reviewed; nursing and respiratory care staff consulted; no adverse overnight events reported to me; resting p eacefully in bed; family has requested hospice transfer but not withdrawal; he remains on MVS Objective Vital Signs - 12hr 04/28/21 04/28/21 04/28/21 01:15 01:30 01:31 Temperature Pulse Rate 68 70 76 Pulse Rate [ Bilateral Throughout] Pulse Rate [ From Monitor] Respiratory 22 23 Rate Respiratory Rate [Bilateral Throughout] Blood Pressure 137/61 137/61 O2 Sat by Pulse 99 97 100 Oximetry 04/28/21 04/28/21 04/28/21 01:45 02:00 02:15 Temperature Pulse Rate 71 72 67 Pulse Rate [ Bilateral Throughout] Pulse Rate [ From Monitor] Respiratory 21 22 20 Rate Respiratory Rate [Bilateral Throughout] Blood Pressure 137/61 135/57 135/57 O2 Sat by Pulse 100 100 99 Oximetry 04/28/21 04/28/21 04/28/21 02:31 02:45 03:01 Temperature Pulse Rate 68 80 69 Pulse Rate [ Bilateral Throughout] Pulse Rate [ From Monitor] Respiratory 21 17 19 Rate Respiratory Rate [Bilateral Throughout] Blood Pressure 135/57 135/57 110/50 O2 Sat by Pulse 99 100 100 Oximetry 04/28/21 04/28/21 04/28/21 03:15 03:22 03:31 Temperature 98.1 F Pulse Rate 68 73 Pulse Rate [ Bilateral Throughout] Pulse Rate [ From Monitor] Respiratory 19 20 Rate Respiratory Rate [Bilateral Throughout] Blood Pressure 110/50 110/50 O2 Sat by Pulse 100 100 Oximetry 04/28/21 04/28/21 04/28/21 03:45 04:00 04:05 Temperature Pulse Rate 66 68 65 Pulse Rate [ Bilateral Throughout] Pulse Rate [ From Monitor] Respiratory 17 19 Rate Respiratory Rate [Bilateral Throughout] Blood Pressure 110/50 114/55 110/50 O2 Sat by Pulse 100 100 100 Oximetry 04/28/21 04/28/21 04/28/21 04:15 04:30 04:31 Temperature Pulse Rate 66 66 69 Pulse Rate [ Bilateral Throughout] Pulse Rate [ From Monitor] Respiratory 19 19 Rate Respiratory Rate [Bilateral Throughout] Blood Pressure 110/50 110/50 O2 Sat by Pulse 100 97 99 Oximetry 04/28/21 04/28/21 04/28/21 04:45 05:00 05:15 Temperature Pulse Rate 66 65 67 Pulse Rate [ Bilateral Throughout] Pulse Rate [ From Monitor] Respiratory 17 18 19 Rate Respiratory Rate [Bilateral Throughout] Blood Pressure 114/55 117/54 117/54 O2 Sat by Pulse 100 100 99 Oximetry 04/28/21 04/28/21 04/28/21 05:31 05:45 06:00 Temperature Pulse Rate 63 66 71 Pulse Rate [ Bilateral Throughout] Pulse Rate [ From Monitor] Respiratory 17 19 16 Rate Respiratory Rate [Bilateral Throughout] Blood Pressure 117/54 117/54 120/70 O2 Sat by Pulse 99 99 99 Oximetry 04/28/21 04/28/21 04/28/21 06:15 06:25 06:31 Temperature Pulse Rate 69 66 77 Pulse Rate [ Bilateral Throughout] Pulse Rate [ From Monitor] Respiratory 15 16 Rate Respiratory Rate [Bilateral Throughout] Blood Pressure 120/70 120/70 O2 Sat by Pulse 100 97 100 Oximetry 04/28/21 04/28/21 04/28/21 07:00 07:35 08:00 Temperature 97.4 F L Pulse Rate 66 70 68 Pulse Rate [ 70 Bilateral Throughout] Pulse Rate [ 68 From Monitor] Respiratory 19 18 Rate Respiratory 20 Rate [Bilateral Throughout] Blood Pressure 122/54 122/54 123/55 O2 Sat by Pulse 99 97 97 Oximetry 04/28/21 04/28/21 04/28/21 08:49 09:00 10:53 Temperature Pulse Rate 66 63 61 Pulse Rate [ Bilateral Throughout] Pulse Rate [ From Monitor] Respiratory 21 Rate Respiratory Rate [Bilateral Throughout] Blood Pressure 123/55 111/55 108/51 O2 Sat by Pulse 97 Oximetry 04/28/21 04/28/21 11:25 12:00 Temperature 97.6 F Pulse Rate 62 Pulse Rate [ Bilateral Throughout] Pulse Rate [ From Monitor] Respiratory 27 H Rate Respiratory Rate [Bilateral Throughout] Blood Pressure 125/55 O2 Sat by Pulse 99 Oximetry Constitutional: no acute distress, other (elderly obese male without significant patient-ventilator dyssynchrony) Eyes: non-icteric ENT: oropharynx moist, oropharyngeal exudate pre (mild), other (ETT 24 cm PERNELL) Neck: supple, no lymphadenopathy, no JVD Effort: normal Ascultation: Bilateral: diminished breath sounds, rhonchi (scant) Percussion: Bilateral: not dull Cardiovascular: regular rate and rhythm Gastrointestinal: normoactive bowel sounds, soft, non-tender, non-distended (protuberant) Integumentary: other (scars in abdomen and lower extremities) Extremities: no cyanosis, no edema, pulses normal, no ischemia or petechiae Neurologic: pupils equal and round, unable to assess Psychiatric: other (unable to assess re: AMS) CBC and BMP: 04/28/21 04:42 04/27/21 05:01 ABG, PT/INR, D-dimer: ABG ABG pH 7.495 (7.320-7.450) H 04/26/21 05:00 POC ABG pCO2 35.9 mmHg (32.0-48.0) 04/26/21 05:00 POC ABG pO2 90.8 mmHg (83-108) 04/26/21 05:00 POC ABG HCO3 27.1 04/26/21 05:00 ABG O2 Saturation 97.3 (0-100) 04/26/21 05:00 PT/INR, D-dimer PT 14.9 Sec. (12.2-14.9) 04/22/21 18:12 INR 1.17 (0.87-1.13) H 04/22/21 18:12 D-Dimer 8003.00 ng/mlDDU (0-234) H 04/23/21 08:58 Abnormal lab findings: Abnormal Labs 04/22/21 04/22/21 04/22/21 18:12 18:12 18:12 WBC 14.6 H RBC Hgb Hct MCV 102 H MCH 33 H Plt Count Lymph % (Auto) Lymph # (Auto) [place] # (Auto) Seg Neutrophils % 70.8 H Seg Neutrophils # 10.3 H INR 1.17 H D-Dimer Heparin Anti-Xa Level ABG pH POC ABG pCO2 POC ABG pO2 ABG Hemoglobin ABG Sodium ABG Potassium ABG Glucose Carboxyhemoglobin Potassium Chloride 93.4 L Carbon Dioxide 21 L BUN Creatinine Glucose 186 H POC Glucose Lactic Acid Lactate Dehydrogenase Troponin T 0.031 H C-Reactive Protein NT-Pro-B Natriuret Pep 2448 H Arterial Blood Glucose Arterial Blood Ionized Calcium Urine Creatinine Urine Total Protein 04/22/21 04/22/21 04/22/21 18:12 19:17 20:58 WBC RBC Hgb Hct MCV MCH Plt Count Lymph % (Auto) Lymph # (Auto) [place] # (Auto) Seg Neutrophils % Seg Neutrophils # INR D-Dimer Heparin Anti-Xa Level ABG pH POC ABG pCO2 POC ABG pO2 ABG Hemoglobin ABG Sodium ABG Potassium ABG Glucose Carboxyhemoglobin Potassium Chloride Carbon Dioxide BUN Creatinine Glucose POC Glucose Lactic Acid 11.00 H* 9.50 H* 5.70 H* Lactate Dehydrogenase Troponin T C-Reactive Protein NT-Pro-B Natriuret Pep Arterial Blood Glucose Arterial Blood Ionized Calcium Urine Creatinine Urine Total Protein 04/22/21 04/22/21 04/22/21 20:58 21:10 23:03 WBC RBC Hgb Hct MCV MCH Plt Count Lymph % (Auto) Lymph # (Auto) [place] # (Auto) Seg Neutrophils % Seg Neutrophils # INR D-Dimer Heparin Anti-Xa Level ABG pH 7.492 H POC ABG pCO2 30.4 L POC ABG pO2 80.3 L ABG Hemoglobin ABG Sodium ABG Potassium 3.2 L ABG Glucose 202 H Carboxyhemoglobin 1.6 H Potassium Chloride Carbon Dioxide BUN Creatinine Glucose POC Glucose 175 H Lactic Acid Lactate Dehydrogenase Troponin T 0.363 H* D C-Reactive Protein NT-Pro-B Natriuret Pep Arterial Blood Glucose 202 H Arterial Blood Ionized Calcium 4.2 L Urine Creatinine Urine Total Protein 04/22/21 04/23/21 04/23/21 23:40 02:36 02:36 WBC 14.6 H RBC Hgb Hct MCV 97 H MCH 33 H Plt Count Lymph % (Auto) 3.6 L Lymph # (Auto) 0.5 L [place] # (Auto) 1.0 H Seg Neutrophils % 89.4 H Seg Neutrophils # 13.0 H INR D-Dimer Heparin Anti-Xa Level ABG pH POC ABG pCO2 POC ABG pO2 ABG Hemoglobin ABG Sodium ABG Potassium ABG Glucose Carboxyhemoglobin Potassium Chloride Carbon Dioxide BUN Creatinine Glucose POC Glucose Lactic Acid 3.60 H* Lactate Dehydrogenase Troponin T 1.020 H* D C-Reactive Protein NT-Pro-B Natriuret Pep Arterial Blood Glucose Arterial Blood Ionized Calcium Urine Creatinine Urine Total Protein 04/23/21 04/23/21 04/23/21 02:36 03:54 05:22 WBC RBC Hgb Hct MCV MCH Plt Count Lymph % (Auto) Lymph # (Auto) [place] # (Auto) Seg Neutrophils % Seg Neutrophils # INR D-Dimer Heparin Anti-Xa Level ABG pH 7.536 H POC ABG pCO2 31.1 L POC ABG pO2 112.7 H ABG Hemoglobin ABG Sodium ABG Potassium 3.3 L ABG Glucose 129 H Carboxyhemoglobin Potassium Chloride 97.4 L Carbon Dioxide BUN 21 H Creatinine 1.6 H Glucose 145 H POC Glucose 123 H Lactic Acid Lactate Dehydrogenase Troponin T C-Reactive Protein NT-Pro-B Natriuret Pep Arterial Blood Glucose 129 H Arterial Blood Ionized Calcium 4.1 L Urine Creatinine Urine Total Protein 04/23/21 04/23/21 04/23/21 08:58 08:58 08:58 WBC RBC Hgb Hct MCV MCH Plt Count Lymph % (Auto) Lymph # (Auto) [place] # (Auto) Seg Neutrophils % Seg Neutrophils # INR D-Dimer 8003.00 H Heparin Anti-Xa Level ABG pH POC ABG pCO2 POC ABG pO2 ABG Hemoglobin ABG Sodium ABG Potassium ABG Glucose Carboxyhemoglobin Potassium Chloride Carbon Dioxide BUN Creatinine Glucose POC Glucose Lactic Acid 2.40 H* Lactate Dehydrogenase 546 H Troponin T C-Reactive Protein 2.20 H NT-Pro-B Natriuret Pep Arterial Blood Glucose Arterial Blood Ionized Calcium Urine Creatinine Urine Total Protein 04/23/21 04/23/21 04/23/21 12:07 13:46 17:29 WBC RBC Hgb Hct MCV MCH Plt Count Lymph % (Auto) Lymph # (Auto) [place] # (Auto) Seg Neutrophils % Seg Neutrophils # INR D-Dimer Heparin Anti-Xa Level ABG pH POC ABG pCO2 POC ABG pO2 ABG Hemoglobin ABG Sodium ABG Potassium ABG Glucose Carboxyhemoglobin Potassium Chloride Carbon Dioxide BUN Creatinine Glucose POC Glucose 150 H 145 H Lactic Acid Lactate Dehydrogenase Troponin T C-Reactive Protein NT-Pro-B Natriuret Pep Arterial Blood Glucose Arterial Blood Ionized Calcium Urine Creatinine 90.4 H Urine Total Protein 103 H 04/23/21 04/24/21 04/24/21 23:51 04:01 05:02 WBC RBC Hgb Hct MCV MCH Plt Count Lymph % (Auto) Lymph # (Auto) [place] # (Auto) Seg Neutrophils % Seg Neutrophils # INR D-Dimer Heparin Anti-Xa Level ABG pH 7.485 H POC ABG pCO2 POC ABG pO2 ABG Hemoglobin ABG Sodium 135.8 L ABG Potassium ABG Glucose 140 H Carboxyhemoglobin Potassium Chloride Carbon Dioxide BUN Creatinine Glucose POC Glucose 140 H 136 H Lactic Acid Lactate Dehydrogenase Troponin T C-Reactive Protein NT-Pro-B Natriuret Pep Arterial Blood Glucose 140 H Arterial Blood Ionized Calcium 4.3 L Urine Creatinine Urine Total Protein 04/24/21 04/24/21 04/24/21 07:03 07:03 11:40 WBC 12.4 H RBC 3.60 L Hgb 11.7 L Hct 34.7 L MCV 96 H MCH 33 H Plt Count Lymph % (Auto) Lymph # (Auto) [place] # (Auto) Seg Neutrophils % Seg Neutrophils # INR D-Dimer Heparin Anti-Xa Level ABG pH POC ABG pCO2 POC ABG pO2 ABG Hemoglobin ABG Sodium ABG Potassium ABG Glucose Carboxyhemoglobin Potassium 3.5 L Chloride Carbon Dioxide BUN 28 H Creatinine 2.2 H Glucose 133 H POC Glucose 153 H Lactic Acid Lactate Dehydrogenase Troponin T C-Reactive Protein NT-Pro-B Natriuret Pep Arterial Blood Glucose Arterial Blood Ionized Calcium Urine Creatinine Urine Total Protein 04/24/21 04/24/21 04/25/21 17:20 23:39 03:05 WBC RBC Hgb Hct MCV MCH Plt Count Lymph % (Auto) Lymph # (Auto) [place] # (Auto) Seg Neutrophils % Seg Neutrophils # INR D-Dimer Heparin Anti-Xa Level ABG pH 7.462 H POC ABG pCO2 POC ABG pO2 80.2 L ABG Hemoglobin 11.0 L ABG Sodium ABG Potassium 3.3 L ABG Glucose 137 H Carboxyhemoglobin Potassium Chloride Carbon Dioxide BUN Creatinine Glucose POC Glucose 170 H 130 H Lactic Acid Lactate Dehydrogenase Troponin T C-Reactive Protein NT-Pro-B Natriuret Pep Arterial Blood Glucose 137 H Arterial Blood Ionized Calcium 4.5 L Urine Creatinine Urine Total Protein 04/25/21 04/25/21 04/25/21 05:31 08:55 08:55 WBC RBC 3.32 L Hgb 10.8 L Hct 32.5 L MCV 98 H MCH Plt Count 116 L Lymph % (Auto) Lymph # (Auto) [place] # (Auto) Seg Neutrophils % Seg Neutrophils # INR D-Dimer Heparin Anti-Xa Level ABG pH POC ABG pCO2 POC ABG pO2 ABG Hemoglobin ABG Sodium ABG Potassium ABG Glucose Carboxyhemoglobin Potassium 3.4 L Chloride Carbon Dioxide BUN 34 H Creatinine 1.9 H Glucose 123 H POC Glucose 152 H Lactic Acid Lactate Dehydrogenase Troponin T C-Reactive Protein NT-Pro-B Natriuret Pep Arterial Blood Glucose Arterial Blood Ionized Calcium Urine Creatinine Urine Total Protein 04/25/21 04/25/21 04/25/21 11:55 17:25 23:28 WBC RBC Hgb Hct MCV MCH Plt Count Lymph % (Auto) Lymph # (Auto) [place] # (Auto) Seg Neutrophils % Seg Neutrophils # INR D-Dimer Heparin Anti-Xa Level ABG pH POC ABG pCO2 POC ABG pO2 ABG Hemoglobin ABG Sodium ABG Potassium ABG Glucose Carboxyhemoglobin Potassium Chloride Carbon Dioxide BUN Creatinine Glucose POC Glucose 142 H 121 H 141 H Lactic Acid Lactate Dehydrogenase Troponin T C-Reactive Protein NT-Pro-B Natriuret Pep Arterial Blood Glucose Arterial Blood Ionized Calcium Urine Creatinine Urine Total Protein 04/26/21 04/26/21 04/26/21 04:49 05:00 05:40 WBC RBC 3.37 L Hgb 11.1 L Hct 32.6 L MCV 97 H MCH 33 H Plt Count Lymph % (Auto) Lymph # (Auto) [place] # (Auto) Seg Neutrophils % Seg Neutrophils # INR D-Dimer Heparin Anti-Xa Level ABG pH 7.495 H POC ABG pCO2 POC ABG pO2 ABG Hemoglobin 11.6 L ABG Sodium ABG Potassium ABG Glucose 134 H Carboxyhemoglobin Potassium Chloride Carbon Dioxide BUN Creatinine Glucose POC Glucose 127 H Lactic Acid Lactate Dehydrogenase Troponin T C-Reactive Protein NT-Pro-B Natriuret Pep Arterial Blood Glucose 134 H Arterial Blood Ionized Calcium Urine Creatinine Urine Total Protein 04/26/21 04/26/21 04/26/21 08:54 08:54 11:07 WBC RBC Hgb Hct MCV MCH Plt Count Lymph % (Auto) Lymph # (Auto) [place] # (Auto) Seg Neutrophils % Seg Neutrophils # INR D-Dimer Heparin Anti-Xa Level 0.20 L ABG pH POC ABG pCO2 POC ABG pO2 ABG Hemoglobin ABG Sodium ABG Potassium ABG Glucose Carboxyhemoglobin Potassium Chloride Carbon Dioxide BUN 36 H Creatinine 1.7 H Glucose 132 H POC Glucose 128 H Lactic Acid Lactate Dehydrogenase Troponin T C-Reactive Protein NT-Pro-B Natriuret Pep Arterial Blood Glucose Arterial Blood Ionized Calcium Urine Creatinine Urine Total Protein 04/26/21 04/26/21 04/27/21 18:22 23:30 05:01 WBC RBC Hgb Hct MCV MCH Plt Count Lymph % (Auto) Lymph # (Auto) [place] # (Auto) Seg Neutrophils % Seg Neutrophils # INR D-Dimer Heparin Anti-Xa Level ABG pH POC ABG pCO2 POC ABG pO2 ABG Hemoglobin ABG Sodium ABG Potassium ABG Glucose Carboxyhemoglobin Potassium Chloride Carbon Dioxide BUN 40 H Creatinine 1.4 H Glucose 125 H POC Glucose 136 H 147 H Lactic Acid Lactate Dehydrogenase Troponin T C-Reactive Protein NT-Pro-B Natriuret Pep Arterial Blood Glucose Arterial Blood Ionized Calcium Urine Creatinine Urine Total Protein 04/27/21 04/27/21 04/27/21 05:32 11:26 16:58 WBC RBC Hgb Hct MCV MCH Plt Count Lymph % (Auto) Lymph # (Auto) [place] # (Auto) Seg Neutrophils % Seg Neutrophils # INR D-Dimer Heparin Anti-Xa Level ABG pH POC ABG pCO2 POC ABG pO2 ABG Hemoglobin ABG Sodium ABG Potassium ABG Glucose Carboxyhemoglobin Potassium Chloride Carbon Dioxide BUN Creatinine Glucose POC Glucose 137 H 139 H 144 H Lactic Acid Lactate Dehydrogenase Troponin T C-Reactive Protein NT-Pro-B Natriuret Pep Arterial Blood Glucose Arterial Blood Ionized Calcium Urine Creatinine Urine Total Protein 04/27/21 04/28/21 04/28/21 23:05 04:42 05:12 WBC RBC Hgb 10.3 L Hct 30.3 L MCV MCH Plt Count Lymph % (Auto) Lymph # (Auto) [place] # (Auto) Seg Neutrophils % Seg Neutrophils # INR D-Dimer Heparin Anti-Xa Level ABG pH POC ABG pCO2 POC ABG pO2 ABG Hemoglobin ABG Sodium ABG Potassium ABG Glucose Carboxyhemoglobin Potassium Chloride Carbon Dioxide BUN Creatinine Glucose POC Glucose 140 H 116 H Lactic Acid Lactate Dehydrogenase Troponin T C-Reactive Protein NT-Pro-B Natriuret Pep Arterial Blood Glucose Arterial Blood Ionized Calcium Urine Creatinine Urine Total Protein 04/28/21 11:45 WBC RBC Hgb Hct MCV MCH Plt Count Lymph % (Auto) Lymph # (Auto) [place] # (Auto) Seg Neutrophils % Seg Neutrophils # INR D-Dimer Heparin Anti-Xa Level ABG pH POC ABG pCO2 POC ABG pO2 ABG Hemoglobin ABG Sodium ABG Potassium ABG Glucose Carboxyhemoglobin Potassium Chloride Carbon Dioxide BUN Creatinine Glucose POC Glucose 114 H Lactic Acid Lactate Dehydrogenase Troponin T C-Reactive Protein NT-Pro-B Natriuret Pep Arterial Blood Glucose Arterial Blood Ionized Calcium Urine Creatinine Urine Total Protein Chest x-ray: other (none today) Allied health notes reviewed: nursing
--- NOTE | 2021-04-28 13:21 | Progress Note ---
Assessment and Plan 1. Status post cardiopulmonary arrest ( NSTEMI ) 2. Respiratory failure intubated on mechanical ventilator 3. Coronary artery disease status post CABG 4. Ischemic cardiomyopathy left ventricular ejection fraction on previous assessment 40 to 45% 5. Acute renal failure rule out ATN 6. Essential hypertension 7. History of CVA Elevated serum troponin levels noted post cardiac arrest cannot exclude a non-ST elevation PR History of CABGx3 in 1995 [facility] 03/2019 at [facility] reports patent JARRELL to LAD, patent SVG to the Ramus and chronically occluded SVG to the RCA with faint collaterals from left to right. s/p transmyocardial laser revascularization (TMR) done at [facility] in 2014. Ischemic Cardiomyopathy echocardiogram done 03/2019 reports a mildly decreased LVEF 40-45%. Plan. Continue Supportive cardiac. Subjective Date of service: 04/28/21 Principal diagnosis: Cardiac; DELMI; Ac hypoxemic resp failure; Ac Encephalopathy; HFrEF; DM II Interval history: Intubated and sedated Objective Vital Signs Temp Pulse Pulse Pulse Resp Resp BP 04/28/21 12:00 97.6 F 04/28/21 11:25 62 27 H 125/55 04/28/21 10:53 61 108/51 04/28/21 09:00 63 21 111/55 04/28/21 08:49 66 123/55 04/28/21 08:00 97.4 F L 68 68 18 123/55 04/28/21 07:35 70 70 20 122/54 04/28/21 07:00 66 19 122/54 04/28/21 06:31 77 16 120/70 04/28/21 06:25 66 04/28/21 06:15 69 15 120/70 04/28/21 06:00 71 16 120/70 04/28/21 05:45 66 19 117/54 04/28/21 05:31 63 17 117/54 04/28/21 05:15 67 19 117/54 04/28/21 05:00 65 18 117/54 04/28/21 04:45 66 17 114/55 04/28/21 04:31 69 19 110/50 04/28/21 04:30 66 04/28/21 04:15 66 19 110/50 04/28/21 04:05 65 110/50 04/28/21 04:00 68 19 114/55 04/28/21 03:45 66 17 110/50 06/05 03:31 73 20 110/50 06/05 03:22 98.1 F 04/28/21 03:15 68 19 110/50 0605 03:01 69 19 110/50 04/28/21 02:45 80 17 135/57 06/05/ 02:31 68 21 135/57 06/05 02:15 67 20 135/57 06/05 02:00 72 22 135/57 /05 01:45 71 21 137/61 06/05 01:31 76 23 137/61 05 01:30 70 04/28/21 01:15 68 22 137/61 04/28/21 01:05 70 04/28/21 01:00 70 22 137/61 04/28/21 00:45 67 19 131/58 05 00:31 69 23 131/58 05 00:15 68 19 131/58 04/28/21 00:14 67 131/58 04/28/21 00:00 65 26 H 131/58 04/27/21 23:51 62 25 H 129/63 04/27/21 23:45 66 19 129/63 04/27/21 23:40 06 23:35 98.0 F 04/27/21 23:31 65 20 129/63 04/27/21 23:15 70 19 129/63 04/27/21 23:00 65 19 129/63 04/27/21 22:45 69 17 123/66 04/27/21 22:31 64 18 123/66 04/27/21 22:15 67 18 123/66 04/27/21 22:01 69 18 123/66 04/27/21 21:45 66 16 131/62 06/04 21:31 65 16 131/62 0604 21:15 66 17 131/62 06/04 21:06 67 04/27/21 21:00 67 18 131/62 06/04 20:45 67 19 137/61 /04 20:31 67 17 137/61 04 20:15 66 17 137/61 06/03/14 20:00 97.8 F 67 18 137/61 04/27/21 19:49 75 20 04/27/21 19:45 65 21 130/56 04/27/21 19:39 67 130/56 04/27/21 19:31 66 17 130/56 04/27/21 19:15 67 17 130/56 04/27/21 19:00 69 19 130/56 04/27/21 18:45 69 17 123/66 04/27/21 18:30 76 17 123/66 04/27/21 18:15 70 23 119/60 04/27/21 18:00 71 22 119/60 04/27/21 17:45 89 22 145/70 04/27/21 17:30 69 22 145/70 04/27/21 17:26 97.8 F 04/27/21 17:15 69 20 194/95 04/27/21 17:01 81 26 H 194/95 04/27/21 16:45 71 21 148/66 04/27/21 16:30 70 20 148/66 04/27/21 16:15 70 20 146/65 04/27/21 16:00 73 22 146/65 04/27/21 15:45 69 20 156/70 04/27/21 15:30 70 22 156/70 04/27/21 15:19 70 148/66 04/27/21 15:15 70 20 148/66 04/27/21 15:00 71 20 148/66 04/27/21 14:45 69 19 144/66 04/27/21 14:30 66 15 144/66 04/27/21 14:15 69 20 140/63 04/27/21 14:00 70 17 140/63 04/27/21 13:45 67 17 140/63 04/27/21 13:43 65 18 04/27/21 13:30 70 18 140/63 Pulse Ox 04/28/21 12:00 04/28/21 11:25 99 04/28/21 10:53 04/28/21 09:00 97 04/28/21 08:49 04/28/21 08:00 97 04/28/21 07:35 97 04/28/21 07:00 99 04/28/21 06:31 100 04/28/21 06:25 97 04/28/21 06:15 100 04/28/21 06:00 99 04/28/21 05:45 99 04/28/21 05:31 99 04/28/21 05:15 99 04/28/21 05:00 100 04/28/21 04:45 100 04/28/21 04:31 99 04/28/21 04:30 97 04/28/21 04:15 100 04/28/21 04:05 100 04/28/21 04:00 100 04/28/21 03:45 100 04/28/21 03:31 100 04/28/21 03:22 04/28/21 03:15 100 04/28/21 03:01 100 04/28/21 02:45 100 04/28/21 02:31 99 04/28/21 02:15 99 04/28/21 02:00 100 04/28/21 01:45 100 04/28/21 01:31 100 04/28/21 01:30 97 04/28/21 01:15 99 04/28/21 01:05 97 04/28/21 01:00 100 04/28/21 00:45 100 04/28/21 00:31 100 04/28/21 00:15 99 04/28/21 00:14 99 04/28/21 00:00 100 04/27/21 23:51 100 04/27/21 23:45 100 04/27/21 23:40 97 04/27/21 23:35 04/27/21 23:31 100 04/27/21 23:15 100 04/27/21 23:00 100 04/27/21 22:45 100 04/27/21 22:31 100 04/27/21 22:15 100 04/27/21 22:01 100 04/27/21 21:45 100 04/27/21 21:31 100 04/27/21 21:15 99 04/27/21 21:06 97 04/27/21 21:00 100 04/27/21 20:45 100 04/27/21 20:31 100 04/27/21 20:15 100 04/27/21 20:00 99 04/27/21 19:49 04/27/21 19:45 100 04/27/21 19:39 99 04/27/21 19:31 99 04/27/21 19:15 97 04/27/21 19:00 97 04/27/21 18:45 97 04/27/21 18:30 98 04/27/21 18:15 98 04/27/21 18:00 98 04/27/21 17:45 99 04/27/21 17:30 99 04/27/21 17:26 04/27/21 17:15 99 04/27/21 17:01 100 04/27/21 16:45 100 04/27/21 16:30 99 04/27/21 16:15 100 04/27/21 16:00 100 04/27/21 15:45 99 04/27/21 15:30 100 04/27/21 15:19 100 04/27/21 15:15 100 04/27/21 15:00 99 04/27/21 14:45 98 04/27/21 14:30 98 04/27/21 14:15 98 04/27/21 14:00 100 04/27/21 13:45 100 04/27/21 13:43 04/27/21 13:30 97 - Physical Examination General: Other (Unresponsive, on the vent) HEENT: Positive: Other (Pupils fixed) Neck: Positive: neck supple Cardiac: Positive: Regular Rate, S1/S2, S3, PMI, Dilated, Laterally Displaced Lungs: Positive: clear to auscultation, No Wheeze, Rales, Rhonchi Neuro: Positive: Other (Unresponsive, on the vent) Abdomen: Positive: Soft, Active Bowel Sounds Skin: Positive: Clear Extremities: Absent: edema - Labs and Meds CBC 04/28/21 Range/Units 04:42 Hgb 10.3 L (11.8-15.2) gm/dl Hct 30.3 L (35.5-45.6) % Plt Count 174 (140-440) K/mm3 - Allied health notes Allied health notes reviewed: nursing
[2021-04-29] MEDS: INSULIN LISPRO 100 UNIT/ML SUB-Q SCH ×4 (00:38→18:38)
[2021-04-29] MEDS: IPRATROPIUM/ALBUTEROL SULFATE 3 ML AMPUL.NEB IH SCH ×4 (04:35→20:20)
[2021-04-29] MEDS: hydrALAZINE 100 MG TAB PO SCH ×3 (05:43→21:35)
--- NOTE | 2021-04-29 07:53 | Discharge Summary ---
<KATHRINE SOTONola - Last Filed: 04/29/21 12:06> Providers - Providers Date of Admission: 04/22/21 21:20 Attending physician: ISSA MORROW 04/22/21 Consult to Cardiac Rehabilitation [CONS] Routine Reason For Exam: Phase 1 04/22/21 21:26 Consult to Dietitian/Nutrition [CONS] Routine Physician Instructions: Reason For Exam: Reason for Consult: Diet education Consult to Physician [CONS] Routine Comment: Dr. Simmons spoke with Dr. Álvarez @ 4 Consulting Provider: ZEN ÁLVAREZ Physician Instructions: Reason For Exam: Cardiac arrest Consult to Physician [CONS] Stat Comment: Dr. Simmons spoke with Dr. Álvarez @ 4 Consulting Provider: ZEN ÁLVAREZ Physician Instructions: Reason For Exam: cardiac arrest 04/22/21 21:35 Consult to Physician [CONS] Routine Comment: Spoke with Dr. Epps @ [id number] Consulting Provider: CODY CREWS Physician Instructions: Reason For Exam: Cardiac arrest 04/23/21 08:40 Consult to Physician [CONS] Routine Comment: Consulting Provider: ELBA CESPEDES Physician Instructions: Reason For Exam: s/p cardiac arrest, seizure 04/23/21 08:56 Consult to Dietitian/Nutrition [CONS] Routine Physician Instructions: Reason For Exam: Reason for Consult: Write/Manage Tube Feeding 04/26/21 15:04 Consult to Physician [CONS] Routine Comment: Consulting Provider: GEO TERAN Physician Instructions: Reason For Exam: Tracheostomy & PEG placement Primary care physician: FASHION ARTIST Hospitalization Condition: Stable Hospital course: This is a 65-year-old male with CAD s/p stents and CABG, DM, CVA, diastolic heart failure, HTN, hypercholesterolemia presented to the emergency department on 04/22 s/p cardiac arrest. Upon arrival of fire department patient was placed in the ED and shocked x2. Upon arrival of EMS patient was found to be in asystole and was given epinephrine x3, Narcan, sodium bicarb x1 and ROSC was achieved. Upon arrival to the emergency department patient again went to cardiac arrest and received 1 round of ACLS with epi nephron x1 and bicarb x1. Work-up in the emergency department revealed leukocytosis, lactic acidosis, elevated troponin, hypochloremia, metabolic acidosis. Patient was admitted to the hospital service with consults to nephrology, cardiology, neurology and [facility]. On 04/23 we held MOLLY inhibitor and diuretics in setting of DELMI. EEG, MRI, MRV, renal ultrasound, echocardiogram pending and Nephrology was consulted given acute kidney injury and neurology. On 04/24 leukocytosis has improved, he has slight hyperkalemia today but his kidney function has worsened to BUN 28/creatinine 2.2 from 14/12.6, lactic acidosis has improved, atient had his EEG today and is scheduled for MRI brain and MRA/MRV, patient is feNA calculated at 1.5 suggestive of ATN or PNA renal state, renal ultrasound negative and hypokalemia was repleted. On 04/25 leukocytosis resolved, hypokalemia was repleted, kidney function has improved, Cruz catheter removed today.and bilateral Doppler ultrasounds and magnesium ordered. 04/26 patient was hypokalemic which was treated, surgery was consulted for trach/PEG and a CPAP trial was contacted which he failed. On 04/27 patient family was contacted by surgery for consent for the trach/PEG. In the evening patient's family updated the nurse the decision to pursue hospice and not pursue trach/PEG and case management was informed. Per case management notes patient should be accepted to [facility] hospice this evening. Care will be transferred to hospice. Assessment and Plan S/p cardiac arrest (NSTEMI) Acute hypoxic respiratory failure Acute kidney injury secondary to vasomotor nephropathy ? Brain injury ? Myoclonic jerks/Seizures Lactic acidosis (down trending) Elevated D-dimer CAD s/p CABG x3 Ischemic cardiomyopathy with EF of 40 to 45% Hypertension Hyperlipidemia CVA Diabetes -[facility], neurology, nephrology, cardiology consulted, appreciate recommendations -COVID-19 PCR negative -IV antibiotic -04/23 renal ultrasound shows no evidence of medical renal disease or hydronephrosis -04/22 echocardiogram shows moderately dilated left ventricle, left ventricular function severely decreased with LVEF of 20 to 25%, borderline concentric left ventricle hypertrophy, mildly dilated left atrium, mild MR, mild AR, mild TR, mild pulmonary hypertension, RVSP is 46 mmHg -04/23 renal calculated at 1.5 suggestive of ATN or prerenal state -04/24 EEG shows is abnormal due to diffuse background slowing noted throughout the recording, excessive beta activity noted bifrontally most likely drug- related, suggestive of possible toxic metabolic encephalopathy, drug effect, possibility of postictal or post anoxic brain injury. -04/24 MRI brain findings consistent with diffuse anoxic injury, large chronic infarct in the right MCA distribution, chronic white matter changes which are nonspecific and consistent with chronic microvascular ischemic disease, no evidence of hemorrhage, mass, mass-effect. -04/24 MRI head shows no acute large vessel occlusion or extra-axial fluid collection -Aspirin, Lipitor -Heparin drip -IV Keppra -Continue home amlodipine, aspirin, Lipitor, Coreg, Plavix, hydralazine, Imdur -S/p 2L NS bolus in ED -s/p IV hydration -Hold home torsemide, lisinopril -Tube feeding -Trend CBC, BMP Disposition: [id number] ([facility]) Final Discharge Diagnosis (Prints w/discharge instructions): S/p cardiac arrest (NSTEMI). Acute hypoxic respiratory failure. Acute kidney injury secondary to vasomotor nephropathy. Anoxic Brain injury. s/p Myoclonic jerks/Seizures. Lactic acidosis (down trending). Elevated D-dimer. CAD s/p CABG x3. Ischemic cardiomyopathy with EF of 40 to 45%. Hypertension. Hyperlipidemia. CVA. Diabetes Time spent for discharge: 35 Core Measure Documentation - Palliative Care Palliative Care/ Comfort Measures: Hospice Care Exam - Physical Exam Narrative exam: General appearance: Present: other (Intubated) - EENT Eyes: Present: scleral icterus - Neck Neck: Absent: masses or JVD, cervical LAD - Respiratory Respiratory effort: normal Respiratory: bilateral: CTA - Cardiovascular Rhythm: regular Heart Sounds: Present: S1 & S2. Absent: systolic murmur, diastolic murmur - Extremities Extremities: no ischemia, pulses intact, pulses symmetrical, No edema, normal temperature, normal color Peripheral Pulses: within normal limits - Abdominal General gastrointestinal: soft, non-tender, non-distended, normal bowel sounds - Psychiatric Psychiatric: other (not interactive, does not follow commands, slight gag noted, no response to painful stimuli) - Neurologic Neurologic: no CNII-XII intact, no moves all extremities - Allied Health Allied health notes reviewed: nursing, RT, social media designer - Constitutional Vitals: Temp Pulse Resp BP Pulse Ox 97.7 F 74 22 107/56 96 04/29/21 03:31 04/29/21 07:13 04/29/21 07:13 04/29/21 07:13 04/29/21 07:13 Plan Activity: advance as tolerated Diet: per dietitian instruction Follow up with: PRIMARY CAREMD [Primary Care Provider] - 3-5 Days <ISSA MORROW - Last Filed: 05/02/21 19:29> Providers - Providers Date of Admission: 04/22/21 21:20 Date of discharge: 04/30/21 Attending physician: ISSA MORROW 04/22/21 Consult to Cardiac Rehabilitation [CONS] Routine Reason For Exam: Phase 1 04/22/21 21:26 Consult to Dietitian/Nutrition [CONS] Routine Physician Instructions: Reason For Exam: Reason for Consult: Diet education Consult to Physician [CONS] Routine Comment: Dr. Simmons spoke with Dr. Álvarez @ [id number] Consulting Provider: ZEN ÁLVAREZ Physician Instructions: Reason For Exam: Cardiac arrest Consult to Physician [CONS] Stat Comment: Dr. Simmons spoke with Dr. Álvarez @ [phone] Consulting Provider: ZEN ÁLVAREZ Physician Instructions: Reason For Exam: cardiac arrest 04/22/21 21:35 Consult to Physician [CONS] Routine Comment: Spoke with Dr. Epsp @ [id number] Consulting Provider: CODY CREWS Physician Instructions: Reason For Exam: Cardiac arrest 04/23/21 08:40 Consult to Physician [CONS] Routine Comment: Consulting Provider: ELBA CESPEDES Physician Instructions: Reason For Exam: s/p cardiac arrest, seizure 04/23/21 08:56 Consult to Dietitian/Nutrition [CONS] Routine Physician Instructions: Reason For Exam: Reason for Consult: Write/Manage Tube Feeding 04/26/21 15:04 Consult to Physician [CONS] Routine Comment: Consulting Provider: GEO TERAN Physician Instructions: Reason For Exam: Tracheostomy & PEG placement Primary care physician: FASHION ARTIST Hospitalization Hospital course: I saw and evaluated the patient. I agree with the findings and the plan of care as documented in the Nurse Practitioner's note, with the following corrections and additions. Patient was discharged to inpatient hospice on 04/30/21. Exam - Constitutional Vitals: Temp Pulse Resp BP Pulse Ox 97.6 F 77 27 H 137/63 97 04/30/21 12:00 04/30/21 15:17 04/30/21 14:01 04/30/21 15:17 04/30/21 15:17
[2021-04-29] MEDS: carvediloL 25 MG TAB PO SCH (08:56)
[2021-04-29] MEDS: CLOPIDOGREL 75 MG TAB PO SCH (09:59)
[2021-04-29] MEDS: FAMOTIDINE 20 MG TAB PO SCH (09:59)
[2021-04-29] MEDS: levETIRAcetam 500 MG/5 ML ORAL LIQD PO SCH ×2 (09:59→21:35)
[2021-04-29] MEDS: ASPIRIN 325 MG TAB PO SCH (09:59)
--- NOTE | 2021-04-29 11:09 | Progress Note ---
Assessment and Plan 1. Status post cardiopulmonary arrest ( NSTEMI ) 2. Respiratory failure intubated on mechanical ventilator 3. Coronary artery disease status post CABG 4. Ischemic cardiomyopathy left ventricular ejection fraction on previous assessment 40 to 45% 5. Acute renal failure rule out ATN 6. Essential hypertension 7. History of CVA 8. Anoxic ANCA follow-up with the Elevated serum troponin levels noted post cardiac arrest cannot exclude a non-ST elevation VT History of CABGx3 in 1995 [facility] 03/2019 at [facility] reports patent JARRELL to LAD, patent SVG to the Ramus and chronically occluded SVG to the RCA with faint collaterals from left to right. s/p transmyocardial laser revascularization (TMR) done at [facility] in 2014. Ischemic Cardiomyopathy Echocardiogram done 03/2019 reports a mildly decreased LVEF 40-45%. Plan. Continue Supportive cardiac management. Further cardiac workup would depend on Neuro recovery. Subjective Date of service: 04/29/21 Principal diagnosis: Cardiac; DELMI; Ac hypoxemic resp failure; Ac Encephalopathy; HFrEF; DM II Interval history: Intubated and sedated Objective Vital Signs Temp Pulse Pulse Pulse Resp Resp BP 04/29/21 10:00 62 23 101/52 04/29/21 09:00 66 23 154/71 04/29/21 08:56 76 121/63 04/29/21 08:00 97.8 F 74 68 22 121/63 04/29/21 07:13 74 74 22 107/56 04/29/21 07:00 71 22 107/56 04/29/21 06:00 78 28 H 132/68 04/29/21 05:00 72 22 109/60 04/29/21 04:25 77 77 18 123/65 04/29/21 04:00 70 74 19 123/65 04/29/21 03:31 97.7 F 04/29/21 03:00 68 21 133/67 04/29/21 02:00 67 23 133/67 04/29/21 01:00 77 22 139/65 04/29/21 00:23 77 118/57 04/29/21 00:00 98.5 F 77 71 23 121/68 04/28/21 23:00 70 23 132/66 04/28/21 22:02 80 25 H 132/66 04/28/21 22:00 72 26 H 132/66 04/28/21 21:00 78 24 145/70 04/28/21 20:31 75 77 24 148/72 04/28/21 20:00 97.5 F L 79 66 26 H 148/72 04/28/21 19:00 78 29 H 142/64 04/28/21 18:00 72 28 H 115/54 04/28/21 17:00 58 L 19 115/54 04/28/21 16:00 97.5 F L 64 59 L 18 115/54 04/28/21 15:41 61 119/71 04/28/21 15:00 72 22 119/71 04/28/21 14:00 56 L 12 124/65 04/28/21 13:53 62 18 04/28/21 13:00 63 21 123/59 04/28/21 12:00 97.6 F 64 61 24 125/55 04/28/21 11:25 62 27 H 125/55 Pulse Ox 04/29/21 10:00 95 04/29/21 09:00 97 04/29/21 08:56 04/29/21 08:00 96 04/29/21 07:13 96 04/29/21 07:00 94 04/29/21 06:00 96 04/29/21 05:00 95 04/29/21 04:25 95 04/29/21 04:00 97 04/29/21 03:31 04/29/21 03:00 94 04/29/21 02:00 97 04/29/21 01:00 97 04/29/21 00:23 96 04/29/21 00:00 95 04/28/21 23:00 94 04/28/21 22:02 95 04/28/21 22:00 95 04/28/21 21:00 95 04/28/21 20:31 94 04/28/21 20:00 93 04/28/21 19:00 89 04/28/21 18:00 90 04/28/21 17:00 98 04/28/21 16:00 99 04/28/21 15:41 99 04/28/21 15:00 99 04/28/21 14:00 100 04/28/21 13:53 04/28/21 13:00 99 04/28/21 12:00 99 04/28/21 11:25 99 - Physical Examination General: Other (Unresponsive, on the vent) HEENT: Positive: Other (Pupils fixed) Neck: Positive: neck supple Cardiac: Positive: Regular Rate, S3, PMI, Dilated, Laterally Displaced Lungs: Positive: Normal Breath Sounds, No Wheeze, Rales, Rhonchi Neuro: Positive: Other (Unresponsive, on the vent) Abdomen: Positive: Soft, Active Bowel Sounds Skin: Positive: Clear Extremities: Absent: edema - Allied health notes Allied health notes reviewed: nursing
[2021-04-29] MEDS: amLODIPine 10 MG TAB PO SCH (11:26)
--- NOTE | 2021-04-29 15:22 | Progress Note ---
Assessment and Plan Cardiac arrest with ROSC Acute hypoxemic respiratory failure Acute kidney injury secondary to vasomotor nephropathy COVID-19 PUI NSTEMI Acute Encephalopathy Myoclonic jerks vs Seizures Lactic acidosis Elevated D-dimer CAD s/p CABG x3 Ischemic cardiomyopathy with EF of 40 to 45% Hypertension Hyperlipidemia CVA Diabetes type II (will follow families wishes and get Hospice evaluation) - placed Scopolamine patch for better secretion control - hospice evaluation ongoing - no new issues otherwise, continue care as below; - watch clinically off AB's re: fevers / WBC - continue IV Heparin re: NSTEMI and follow platelets - follow neurology evaluation - prn vasopressors for target MAP > 65 mmHg - inotropic support per cardiology recommendations - continue to wean supplemental oxygen for target O2 sat's > 90% acutely - VAP bundle addressed - continue lung protective strategies - continue bronchodilators with pulmonary hygiene per RT - wean per pulmonary driven protocols otherwise - continue Daily SAT and SBT assessment as tolerated - continue accuchecks with glycemic control per SSI (While critically ill target blood glucose of 140-180 mg/dL; avoid hypoglycemia) - sedation prn for target RASS 0 to -1 - avoid nephrotoxins, renally dose all medications - continue to avoid benzodiazepine's, reduce the possibility of delirium - AB's per ID rec's - prn analgesia per CPOT score - Maintenance of sleep-wake cycle, avoid delirium - enteral nutritional support at goal rate as tolerated - G.I. & VTE prophylaxis - PT/OT/ROM exercises - mobility protocols for pressure ulcer prophylaxis - Monitor hemodynamics closely - continue other care per attending / other consultants - discharge planning ongoing concurrently COVID SPECIFIC INTERVENTIONS - Remdesivir as per ID/Pulmonary developed protocols - consider systemic steroids for severe COVID-19 infection empirically - follow repeat COVID tests results - zinc and vitamin C supplementation - Monitor inflammatory markers per facility protocol - ferritin, Ddimer, CRP - consider therapeutic anticoagulation per system Protocol based on d-dimer and clinical considerations - Continue contact and airborne isolation .... Re-evaluate in am & prn CONDITION: CRITICAL PROGNOSIS: GUARDED CODE STATUS: FULL CODE The high probability of a clinically significant, sudden or life-threatening deterioration of the [respiratory, cardiovascular & neurologic] system(s) required my full and direct attention, intervention and personal management. The aggregate critical care time was [32] minutes without overlap. Time includes spent on; [x] Data Review and interpretation [x] Patient assessment and monitoring of vital signs [x] Documentation [x] Medication orders and management Subjective Date of service: 04/29/21 Principal diagnosis: Cardiac; DELMI; Ac hypoxemic resp failure; Ac Encephalopathy; HFrEF; DM II Interval history: Patient is seen today for: Cardiac arrest with ROSC; DELMI; Acute hypoxemic respiratory failure; PUI COVID-19; NSTEMI; Acute Encephalopathy Myoclonic jerks vs Seizures; Ischemic cardiomyopathy with EF of 20 to 25%; DM II; H/O CVA Seen and examined at bedside; 24hour events reviewed; nursing and respiratory care staff consulted; no adverse overnight events reported to me; resting peacefully in bed; remains on MVS; Hospice evaluation ongoing; on PSV trial and tolerating well; oral secretions copious Objective Vital Signs - 12hr 04/29/21 04/29/21 04/29/21 03:31 04:00 04:25 Temperature 97.7 F Pulse Rate 70 77 Pulse Rate [ 77 Bilateral Throughout] Pulse Rate [ 74 From Monitor] Respiratory 19 Rate Respiratory 18 Rate [Bilateral Throughout] Blood Pressure 123/65 123/65 O2 Sat by Pulse 97 95 Oximetry 04/29/21 04/29/21 04/29/21 05:00 06:00 07:00 Temperature Pulse Rate 72 78 71 Pulse Rate [ Bilateral Throughout] Pulse Rate [ From Monitor] Respiratory 22 28 H 22 Rate Respiratory Rate [Bilateral Throughout] Blood Pressure 109/60 132/68 107/56 O2 Sat by Pulse 95 96 94 Oximetry 04/29/21 04/29/21 04/29/21 07:13 08:00 08:56 Temperature 97.8 F Pulse Rate 74 74 76 Pulse Rate [ 74 Bilateral Throughout] Pulse Rate [ 68 From Monitor] Respiratory 22 Rate Respiratory 22 Rate [Bilateral Throughout] Blood Pressure 107/56 121/63 121/63 O2 Sat by Pulse 96 96 Oximetry 04/29/21 04/29/21 04/29/21 09:00 10:00 11:00 Temperature Pulse Rate 66 62 65 Pulse Rate [ Bilateral Throughout] Pulse Rate [ From Monitor] Respiratory 23 23 20 Rate Respiratory Rate [Bilateral Throughout] Blood Pressure 154/71 101/52 120/59 O2 Sat by Pulse 97 95 96 Oximetry 04/29/21 04/29/21 04/29/21 11:26 11:40 12:00 Temperature 97 F L Pulse Rate 62 70 66 Pulse Rate [ Bilateral Throughout] Pulse Rate [ 66 From Monitor] Respiratory 25 H 26 H Rate Respiratory Rate [Bilateral Throughout] Blood Pressure 101/52 104/57 104/57 O2 Sat by Pulse 97 95 Oximetry 04/29/21 13:09 Temperature Pulse Rate Pulse Rate [ 69 Bilateral Throughout] Pulse Rate [ From Monitor] Respiratory Rate Respiratory 24 Rate [Bilateral Throughout] Blood Pressure O2 Sat by Pulse Oximetry Constitutional: no acute distress, other (elderly obese male without significant patient-ventilator dyssynchrony) Eyes: non-icteric ENT: oropharynx moist, oropharyngeal exudate pre (copious), other (ETT 24 cm PERNELL) Neck: supple, no lymphadenopathy, no JVD Effort: normal Ascultation: Bilateral: diminished breath sounds, rhonchi (scant) Percussion: Bilateral: not dull Cardiovascular: regular rate and rhythm Gastrointestinal: normoactive bowel sounds, soft, non-tender, non-distended (protuberant) Integumentary: other (scars in abdomen and lower extremities) Extremities: no cyanosis, no edema, pulses normal, no ischemia or petechiae Neurologic: pupils equal and round, unable to assess Psychiatric: other (unable to assess re: AMS) CBC and BMP: 04/28/21 04:42 04/27/21 05:01 ABG, PT/INR, D-dimer: ABG ABG pH 7.485 (7.320-7.450) H 04/29/21 04:00 POC ABG pCO2 36.6 mmHg (32.0-48.0) 04/29/21 04:00 POC ABG pO2 59.3 mmHg (83-108) L 04/29/21 04:00 POC ABG HCO3 27.0 04/29/21 04:00 ABG O2 Saturation 90.3 (0-100) 04/29/21 04:00 PT/INR, D-dimer PT 14.9 Sec. (12.2-14.9) 04/22/21 18:12 INR 1.17 (0.87-1.13) H 04/22/21 18:12 D-Dimer 8003.00 ng/mlDDU (0-234) H 04/23/21 08:58 Abnormal lab findings: Abnormal Labs 04/22/21 04/22/21 04/22/21 18:12 18:12 18:12 WBC 14.6 H RBC Hgb Hct MCV 102 H MCH 33 H Plt Count Lymph % (Auto) Lymph # (Auto) [place] # (Auto) Seg Neutrophils % 70.8 H Seg Neutrophils # 10.3 H INR 1.17 H D-Dimer Heparin Anti-Xa Level ABG pH POC ABG pCO2 POC ABG pO2 ABG Hemoglobin ABG Oxyhemoglobin ABG Sodium ABG Potassium ABG Glucose Carboxyhemoglobin Potassium Chloride 93.4 L Carbon Dioxide 21 L BUN Creatinine Glucose 186 H POC Glucose Lactic Acid Lactate Dehydrogenase Troponin T 0.031 H C-Reactive Protein NT-Pro-B Natriuret Pep 2448 H Arterial Blood Glucose Arterial Blood Ionized Calcium Urine Creatinine Urine Total Protein 04/22/21 04/22/21 04/22/21 18:12 19:17 20:58 WBC RBC Hgb Hct MCV MCH Plt Count Lymph % (Auto) Lymph # (Auto) [place] # (Auto) Seg Neutrophils % Seg Neutrophils # INR D-Dimer Heparin Anti-Xa Level ABG pH POC ABG pCO2 POC ABG pO2 ABG Hemoglobin ABG Oxyhemoglobin ABG Sodium ABG Potassium ABG Glucose Carboxyhemoglobin Potassium Chloride Carbon Dioxide BUN Creatinine Glucose POC Glucose Lactic Acid 11.00 H* 9.50 H* 5.70 H* Lactate Dehydrogenase Troponin T C-Reactive Protein NT-Pro-B Natriuret Pep Arterial Blood Glucose Arterial Blood Ionized Calcium Urine Creatinine Urine Total Protein 04/22/21 04/22/21 04/22/21 20:58 21:10 23:03 WBC RBC Hgb Hct MCV MCH Plt Count Lymph % (Auto) Lymph # (Auto) [place] # (Auto) Seg Neutrophils % Seg Neutrophils # INR D-Dimer Heparin Anti-Xa Level ABG pH 7.492 H POC ABG pCO2 30.4 L POC ABG pO2 80.3 L ABG Hemoglobin ABG Oxyhemoglobin ABG Sodium ABG Potassium 3.2 L ABG Glucose 202 H Carboxyhemoglobin 1.6 H Potassium Chloride Carbon Dioxide BUN Creatinine Glucose POC Glucose 175 H Lactic Acid Lactate Dehydrogenase Troponin T 0.363 H* D C-Reactive Protein NT-Pro-B Natriuret Pep Arterial Blood Glucose 202 H Arterial Blood Ionized Calcium 4.2 L Urine Creatinine Urine Total Protein 04/22/21 04/23/21 04/23/21 23:40 02:36 02:36 WBC 14.6 H RBC Hgb Hct MCV 97 H MCH 33 H Plt Count Lymph % (Auto) 3.6 L Lymph # (Auto) 0.5 L [place] # (Auto) 1.0 H Seg Neutrophils % 89.4 H Seg Neutrophils # 13.0 H INR D-Dimer Heparin Anti-Xa Level ABG pH POC ABG pCO2 POC ABG pO2 ABG Hemoglobin ABG Oxyhemoglobin ABG Sodium ABG Potassium ABG Glucose Carboxyhemoglobin Potassium Chloride Carbon Dioxide BUN Creatinine Glucose POC Glucose Lactic Acid 3.60 H* Lactate Dehydrogenase Troponin T 1.020 H* D C-Reactive Protein NT-Pro-B Natriuret Pep Arterial Blood Glucose Arterial Blood Ionized Calcium Urine Creatinine Urine Total Protein 04/23/21 04/23/21 04/23/21 02:36 03:54 05:22 WBC RBC Hgb Hct MCV MCH Plt Count Lymph % (Auto) Lymph # (Auto) [place] # (Auto) Seg Neutrophils % Seg Neutrophils # INR D-Dimer Heparin Anti-Xa Level ABG pH 7.536 H POC ABG pCO2 31.1 L POC ABG pO2 112.7 H ABG Hemoglobin ABG Oxyhemoglobin ABG Sodium ABG Potassium 3.3 L ABG Glucose 129 H Carboxyhemoglobin Potassium Chloride 97.4 L Carbon Dioxide BUN 21 H Creatinine 1.6 H Glucose 145 H POC Glucose 123 H Lactic Acid Lactate Dehydrogenase Troponin T C-Reactive Protein NT-Pro-B Natriuret Pep Arterial Blood Glucose 129 H Arterial Blood Ionized Calcium 4.1 L Urine Creatinine Urine Total Protein 04/23/21 04/23/21 04/23/21 08:58 08:58 08:58 WBC RBC Hgb Hct MCV MCH Plt Count Lymph % (Auto) Lymph # (Auto) [place] # (Auto) Seg Neutrophils % Seg Neutrophils # INR D-Dimer 8003.00 H Heparin Anti-Xa Level ABG pH POC ABG pCO2 POC ABG pO2 ABG Hemoglobin ABG Oxyhemoglobin ABG Sodium ABG Potassium ABG Glucose Carboxyhemoglobin Potassium Chloride Carbon Dioxide BUN Creatinine Glucose POC Glucose Lactic Acid 2.40 H* Lactate Dehydrogenase 546 H Troponin T C-Reactive Protein 2.20 H NT-Pro-B Natriuret Pep Arterial Blood Glucose Arterial Blood Ionized Calcium Urine Creatinine Urine Total Protein 04/23/21 04/23/21 04/23/21 12:07 13:46 17:29 WBC RBC Hgb Hct MCV MCH Plt Count Lymph % (Auto) Lymph # (Auto) [place] # (Auto) Seg Neutrophils % Seg Neutrophils # INR D-Dimer Heparin Anti-Xa Level ABG pH POC ABG pCO2 POC ABG pO2 ABG Hemoglobin ABG Oxyhemoglobin ABG Sodium ABG Potassium ABG Glucose Carboxyhemoglobin Potassium Chloride Carbon Dioxide BUN Creatinine Glucose POC Glucose 150 H 145 H Lactic Acid Lactate Dehydrogenase Troponin T C-Reactive Protein NT-Pro-B Natriuret Pep Arterial Blood Glucose Arterial Blood Ionized Calcium Urine Creatinine 90.4 H Urine Total Protein 103 H 04/23/21 04/24/21 04/24/21 23:51 04:01 05:02 WBC RBC Hgb Hct MCV MCH Plt Count Lymph % (Auto) Lymph # (Auto) [place] # (Auto) Seg Neutrophils % Seg Neutrophils # INR D-Dimer Heparin Anti-Xa Level ABG pH 7.485 H POC ABG pCO2 POC ABG pO2 ABG Hemoglobin ABG Oxyhemoglobin ABG Sodium 135.8 L ABG Potassium ABG Glucose 140 H Carboxyhemoglobin Potassium Chloride Carbon Dioxide BUN Creatinine Glucose POC Glucose 140 H 136 H Lactic Acid Lactate Dehydrogenase Troponin T C-Reactive Protein NT-Pro-B Natriuret Pep Arterial Blood Glucose 140 H Arterial Blood Ionized Calcium 4.3 L Urine Creatinine Urine Total Protein 04/24/21 04/24/21 04/24/21 07:03 07:03 11:40 WBC 12.4 H RBC 3.60 L Hgb 11.7 L Hct 34.7 L MCV 96 H MCH 33 H Plt Count Lymph % (Auto) Lymph # (Auto) [place] # (Auto) Seg Neutrophils % Seg Neutrophils # INR D-Dimer Heparin Anti-Xa Level ABG pH POC ABG pCO2 POC ABG pO2 ABG Hemoglobin ABG Oxyhemoglobin ABG Sodium ABG Potassium ABG Glucose Carboxyhemoglobin Potassium 3.5 L Chloride Carbon Dioxide BUN 28 H Creatinine 2.2 H Glucose 133 H POC Glucose 153 H Lactic Acid Lactate Dehydrogenase Troponin T C-Reactive Protein NT-Pro-B Natriuret Pep Arterial Blood Glucose Arterial Blood Ionized Calcium Urine Creatinine Urine Total Protein 04/24/21 04/24/21 04/25/21 17:20 23:39 03:05 WBC RBC Hgb Hct MCV MCH Plt Count Lymph % (Auto) Lymph # (Auto) [place] # (Auto) Seg Neutrophils % Seg Neutrophils # INR D-Dimer Heparin Anti-Xa Level ABG pH 7.462 H POC ABG pCO2 POC ABG pO2 80.2 L ABG Hemoglobin 11.0 L ABG Oxyhemoglobin ABG Sodium ABG Potassium 3.3 L ABG Glucose 137 H Carboxyhemoglobin Potassium Chloride Carbon Dioxide BUN Creatinine Glucose POC Glucose 170 H 130 H Lactic Acid Lactate Dehydrogenase Troponin T C-Reactive Protein NT-Pro-B Natriuret Pep Arterial Blood Glucose 137 H Arterial Blood Ionized Calcium 4.5 L Urine Creatinine Urine Total Protein 04/25/21 04/25/21 04/25/21 05:31 08:55 08:55 WBC RBC 3.32 L Hgb 10.8 L Hct 32.5 L MCV 98 H MCH Plt Count 116 L Lymph % (Auto) Lymph # (Auto) [place] # (Auto) Seg Neutrophils % Seg Neutrophils # INR D-Dimer Heparin Anti-Xa Level ABG pH POC ABG pCO2 POC ABG pO2 ABG Hemoglobin ABG Oxyhemoglobin ABG Sodium ABG Potassium ABG Glucose Carboxyhemoglobin Potassium 3.4 L Chloride Carbon Dioxide BUN 34 H Creatinine 1.9 H Glucose 123 H POC Glucose 152 H Lactic Acid Lactate Dehydrogenase Troponin T C-Reactive Protein NT-Pro-B Natriuret Pep Arterial Blood Glucose Arterial Blood Ionized Calcium Urine Creatinine Urine Total Protein 04/25/21 04/25/21 04/25/21 11:55 17:25 23:28 WBC RBC Hgb Hct MCV MCH Plt Count Lymph % (Auto) Lymph # (Auto) [place] # (Auto) Seg Neutrophils % Seg Neutrophils # INR D-Dimer Heparin Anti-Xa Level ABG pH POC ABG pCO2 POC ABG pO2 ABG Hemoglobin ABG Oxyhemoglobin ABG Sodium ABG Potassium ABG Glucose Carboxyhemoglobin Potassium Chloride Carbon Dioxide BUN Creatinine Glucose POC Glucose 142 H 121 H 141 H Lactic Acid Lactate Dehydrogenase Troponin T C-Reactive Protein NT-Pro-B Natriuret Pep Arterial Blood Glucose Arterial Blood Ionized Calcium Urine Creatinine Urine Total Protein 04/26/21 04/26/21 04/26/21 04:49 05:00 05:40 WBC RBC 3.37 L Hgb 11.1 L Hct 32.6 L MCV 97 H MCH 33 H Plt Count Lymph % (Auto) Lymph # (Auto) [place] # (Auto) Seg Neutrophils % Seg Neutrophils # INR D-Dimer Heparin Anti-Xa Level ABG pH 7.495 H POC ABG pCO2 POC ABG pO2 ABG Hemoglobin 11.6 L ABG Oxyhemoglobin ABG Sodium ABG Potassium ABG Glucose 134 H Carboxyhemoglobin Potassium Chloride Carbon Dioxide BUN Creatinine Glucose POC Glucose 127 H Lactic Acid Lactate Dehydrogenase Troponin T C-Reactive Protein NT-Pro-B Natriuret Pep Arterial Blood Glucose 134 H Arterial Blood Ionized Calcium Urine Creatinine Urine Total Protein 04/26/21 04/26/21 04/26/21 08:54 08:54 11:07 WBC RBC Hgb Hct MCV MCH Plt Count Lymph % (Auto) Lymph # (Auto) [place] # (Auto) Seg Neutrophils % Seg Neutrophils # INR D-Dimer Heparin Anti-Xa Level 0.20 L ABG pH POC ABG pCO2 POC ABG pO2 ABG Hemoglobin ABG Oxyhemoglobin ABG Sodium ABG Potassium ABG Glucose Carboxyhemoglobin Potassium Chloride Carbon Dioxide BUN 36 H Creatinine 1.7 H Glucose 132 H POC Glucose 128 H Lactic Acid Lactate Dehydrogenase Troponin T C-Reactive Protein NT-Pro-B Natriuret Pep Arterial Blood Glucose Arterial Blood Ionized Calcium Urine Creatinine Urine Total Protein 04/26/21 04/26/21 04/27/21 18:22 23:30 05:01 WBC RBC Hgb Hct MCV MCH Plt Count Lymph % (Auto) Lymph # (Auto) [place] # (Auto) Seg Neutrophils % Seg Neutrophils # INR D-Dimer Heparin Anti-Xa Level ABG pH POC ABG pCO2 POC ABG pO2 ABG Hemoglobin ABG Oxyhemoglobin ABG Sodium ABG Potassium ABG Glucose Carboxyhemoglobin Potassium Chloride Carbon Dioxide BUN 40 H Creatinine 1.4 H Glucose 125 H POC Glucose 136 H 147 H Lactic Acid Lactate Dehydrogenase Troponin T C-Reactive Protein NT-Pro-B Natriuret Pep Arterial Blood Glucose Arterial Blood Ionized Calcium Urine Creatinine Urine Total Protein 04/27/21 04/27/21 04/27/21 05:32 11:26 16:58 WBC RBC Hgb Hct MCV MCH Plt Count Lymph % (Auto) Lymph # (Auto) [place] # (Auto) Seg Neutrophils % Seg Neutrophils # INR D-Dimer Heparin Anti-Xa Level ABG pH POC ABG pCO2 POC ABG pO2 ABG Hemoglobin ABG Oxyhemoglobin ABG Sodium ABG Potassium ABG Glucose Carboxyhemoglobin Potassium Chloride Carbon Dioxide BUN Creatinine Glucose POC Glucose 137 H 139 H 144 H Lactic Acid Lactate Dehydrogenase Troponin T C-Reactive Protein NT-Pro-B Natriuret Pep Arterial Blood Glucose Arterial Blood Ionized Calcium Urine Creatinine Urine Total Protein 04/27/21 04/28/21 04/28/21 23:05 04:22 04:42 WBC RBC Hgb 10.3 L Hct 30.3 L MCV MCH Plt Count Lymph % (Auto) Lymph # (Auto) [place] # (Auto) Seg Neutrophils % Seg Neutrophils # INR D-Dimer Heparin Anti-Xa Level ABG pH 7.478 H POC ABG pCO2 POC ABG pO2 ABG Hemoglobin 10.2 L ABG Oxyhemoglobin ABG Sodium 132.9 L ABG Potassium ABG Glucose 139 H Carboxyhemoglobin Potassium Chloride Carbon Dioxide BUN Creatinine Glucose POC Glucose 140 H Lactic Acid Lactate Dehydrogenase Troponin T C-Reactive Protein NT-Pro-B Natriuret Pep Arterial Blood Glucose 139 H Arterial Blood Ionized Calcium Urine Creatinine Urine Total Protein 04/28/21 04/28/21 04/28/21 05:12 11:45 18:04 WBC RBC Hgb Hct MCV MCH Plt Count Lymph % (Auto) Lymph # (Auto) [place] # (Auto) Seg Neutrophils % Seg Neutrophils # INR D-Dimer Heparin Anti-Xa Level ABG pH POC ABG pCO2 POC ABG pO2 ABG Hemoglobin ABG Oxyhemoglobin ABG Sodium ABG Potassium ABG Glucose Carboxyhemoglobin Potassium Chloride Carbon Dioxide BUN Creatinine Glucose POC Glucose 116 H 114 H 116 H Lactic Acid Lactate Dehydrogenase Troponin T C-Reactive Protein NT-Pro-B Natriuret Pep Arterial Blood Glucose Arterial Blood Ionized Calcium Urine Creatinine Urine Total Protein 04/28/21 04/29/21 04/29/21 23:36 04:00 05:34 WBC RBC Hgb Hct MCV MCH Plt Count Lymph % (Auto) Lymph # (Auto) [place] # (Auto) Seg Neutrophils % Seg Neutrophils # INR D-Dimer Heparin Anti-Xa Level ABG pH 7.485 H POC ABG pCO2 POC ABG pO2 59.3 L ABG Hemoglobin 10.2 L ABG Oxyhemoglobin 89.3 L ABG Sodium 133.5 L ABG Potassium 4.7 H ABG Glucose 120 H Carboxyhemoglobin Potassium Chloride Carbon Dioxide BUN Creatinine Glucose POC Glucose 120 H 118 H Lactic Acid Lactate Dehydrogenase Troponin T C-Reactive Protein NT-Pro-B Natriuret Pep Arterial Blood Glucose 120 H Arterial Blood Ionized Calcium Urine Creatinine Urine Total Protein 04/29/21 11:18 WBC RBC Hgb Hct MCV MCH Plt Count Lymph % (Auto) Lymph # (Auto) [place] # (Auto) Seg Neutrophils % Seg Neutrophils # INR D-Dimer Heparin Anti-Xa Level ABG pH POC ABG pCO2 POC ABG pO2 ABG Hemoglobin ABG Oxyhemoglobin ABG Sodium ABG Potassium ABG Glucose Carboxyhemoglobin Potassium Chloride Carbon Dioxide BUN Creatinine Glucose POC Glucose 120 H Lactic Acid Lactate Dehydrogenase Troponin T C-Reactive Protein NT-Pro-B Natriuret Pep Arterial Blood Glucose Arterial Blood Ionized Calcium Urine Creatinine Urine Total Protein Chest x-ray: other (none today) Allied health notes reviewed: nursing
[2021-04-29] MEDS ORDERED: SCOPOLAMINE TRANSDERMAL PATCH 72 HR TD SCH (17:00)
[2021-04-29] MEDS: HEPARIN/ 0.45% NACL DRIP 25,000 UNIT/500 ML BAG IV SCH (21:44)
[2021-04-30] MEDS: INSULIN LISPRO 100 UNIT/ML SUB-Q SCH ×3 (00:32→13:05)
[2021-04-30] MEDS: hydrALAZINE 100 MG TAB PO SCH (06:15)
[2021-04-30 06:25] LABS: Hematocrit 31.3 % (35.5-45.6); Hemoglobin 10.5 gm/dl (11.8-15.2)
[2021-04-30] MEDS: IPRATROPIUM/ALBUTEROL SULFATE 3 ML AMPUL.NEB IH SCH ×3 (07:13→13:58)
--- NOTE | 2021-04-30 08:25 | Progress Note ---
Assessment and Plan Assessment and plan: This is a 65-year-old male with CAD s/p CABG x3, ischemic cardiomyopathy with ejection fraction of 40 to 45%, hypertension, hyperlipidemia, CVA and diabetes who was admitted s/p cardiac arrest, leukocytosis, lactic acidosis, elevated troponin, hypochloremia, metabolic acidosis, acute hypoxic respiratory failure S/p cardiac arrest (NSTEMI) Acute hypoxic respiratory failure Acute kidney injury secondary to vasomotor nephropathy ? Brain injury ? Myoclonic jerks/Seizures Lactic acidosis (down trending) Elevated D-dimer CAD s/p CABG x3 Ischemic cardiomyopathy with EF of 40 to 45% Hypertension Hyperlipidemia CVA Diabetes -CCM, neurology, nephrology, cardiology consulted, appreciate recommendations -COVID-19 PCR negative -IV antibiotic -04/23 renal ultrasound shows no evidence of medical renal disease or hydronephrosis -04/22 echocardiogram shows moderately dilated left ventricle, left ventricular function severely decreased with LVEF of 20 to 25%, borderline concentric left ventricle hypertrophy, mildly dilated left atrium, mild MR, mild AR, mild TR, mild pulmonary hypertension, RVSP is 46 mmHg -04/23 renal calculated at 1.5 suggestive of ATN or prerenal state -04/24 EEG shows is abnormal due to diffuse background slowing noted throughout the recording, excessive beta activity noted bifrontally most likely drug- related, suggestive of possible toxic metabolic encephalopathy, drug effect, p ossibility of postictal or post anoxic brain injury. -04/24 MRI brain findings consistent with diffuse anoxic injury, large chronic infarct in the right MCA distribution, chronic white matter changes which are nonspecific and consistent with chronic microvascular ischemic disease, no evidence of hemorrhage, mass, mass-effect. -04/24 MRI head shows no acute large vessel occlusion or extra-axial fluid c ollection -Aspirin, Lipitor -Heparin drip -IV Keppra -Continue home amlodipine, aspirin, Lipitor, Coreg, Plavix, hydralazine, Imdur -S/p 2L NS bolus in ED -s/p IV hydration -Hold home torsemide, lisinopril -Tube feeding -Trend CBC, BMP DVT/GI prophylaxis: SCDs to bilateral lower extremities while in bed, systemic anticoagulation with heparin drip, PPI Disposition: ICU, possible hospice The high probability of a clinically significant, sudden or life threatening deterioration of the [multi] system(s) required my full and direct attention, intervention and personal management. The aggregate critical care time was [35] minutes. This time is in addition to time spent performing reported procedures but includes the following: [x] Data Review and interpretation [x] Patient assessment and monitoring of vital signs [x] Documentation [x] Medication orders and management History Interval history: This is a 65-year-old male with CAD s/p stents and CABG, DM, CVA, diastolic heart failure, HTN, hypercholesterolemia presented to the emergency department on 04/22 s/p cardiac arrest. Upon arrival of fire department patient was placed in the ED and shocked x2. Upon arrival of EMS patient was found to be in asystole and was given epinephrine x3, Narcan, sodium bicarb x1 and ROSC was achieved. Upon arrival to the emergency department patient again went to cardiac arrest and received 1 round of ACLS with epi nephron x1 and bicarb x1. Work-up in the emergency department revealed leukocytosis, lactic acidosis, elevated troponin, hypochloremia, metabolic acidosis. Patient was admitted to the hospital service with consults to nephrology, cardiology, neurology and [facility]. 04/23: We will hold MOLLY inhibitor and diuretics in setting of DELMI. EEG, MRI, MRV, renal ultrasound, echocardiogram pending Patient sedated with propofol. At the time my examination patient is on assist control tidal volume 450, rate of 26, PEEP of 6 and FiO2 of 30%. Nephrology was consulted given acute kidney injury and neurology. 04/24: Patient's leukocytosis has improved, he has slight hyperkalemia today but his kidney function has worsened to BUN 28/creatinine 2.2 from 14/12.6. Lactic acidosis has improved. Patient had his EEG today and is scheduled for MRI brain and MRA/MRV. This time my examination patient is on assist control tidal volume 450, rate 26, PEEP of 6 and 30% FiO2. Patient is Felicita calculated at 1.5 suggestive of ATN or PNA renal state. Renal ultrasound negative. He has hypokalemia today which will be repleted. 04/25: Patient's leukocytosis has resolved today, patient he is he has hyperchloremia which was repleted. Kidney function has improved. We will remove his Cruz catheter today. [facility] will obtain bilateral Doppler ultrasounds and magnesium. We will discontinue IV fluids. 04/26: Neurology has signed off today, [facility] has spoken to his family who will update us with decision on CODE STATUS/goals of care patient was hypokalemic today which was repleted. Surgery consult will be placed by CCM. CPAP trial today. Will panculture with next temperature spike. Possible CTA 04/27: General surgery will contact family regarding trach/PEG, per cardiology can add CCB or alpha-hector if needed cardioprotective regimen, patient's renal function continues to improve. This evening family informed RN that they elect to proceed with hospice. chemical plant manager informed. 04/28: Yesterday evening CM spoke to family regarding their decision to pursue hospice and did not want trach/PEG. chemical plant manager made referrals and this morning primary hospice informed case management that bed should be available this afternoon or evening. Slight downward trend of H/H. The time examination patient remained on room assist control tidal and 450, rate of 16, PEEP of 6 and 30% FiO2 and neurological exam was unchanged. 04/30 Patient is 65-year-old male with CAD s/p stents and CABG, DM, CVA, diastolic heart failure, HTN, hypercholesterolemia presented to the emergency department on 04/22 s/p cardiac arrest. Family has decided on hospice. Hopefully transfer to hospice today History Interval history: This is a 65-year-old male with CAD s/p CABG x3, ischemic cardiomyopathy with ejection fraction of 40 to 45%, hypertension, hyperlipidemia, CVA and diabetes who was admitted s/p cardiac arrest, leukocytosis, lactic acidosis, elevated troponin, hypochloremia, metabolic acidosis, acute hypoxic respiratory failure. Family has decided on hospice. Plan is to go to Hospice. No new events overnight Hospitalist Physical - Physical exam Narrative exam: - Physical exam Narrative exam: General appearance: Present: other (Intubated) - EENT Eyes: Present: scleral icterus - Neck Neck: Absent: masses or JVD, cervical LAD - Respiratory Respiratory effort: normal Respiratory: bilateral: CTA - Cardiovascular Rhythm: regular Heart Sounds: Present: S1 & S2. Absent: systolic murmur, diastolic murmur - Extremities Extremities: no ischemia, pulses intact, pulses symmetrical, No edema, normal temperature, normal color Peripheral Pulses: within normal limits - Abdominal General gastrointestinal: soft, non-tender, non-distended, normal bowel sounds - Psychiatric Psychiatric: other (not interactive, does not follow commands, slight gag noted, no response to painful stimuli) - Neurologic Neurologic: no CNII-XII intact, no moves all extremities - Allied Health Allied health notes reviewed: nursing, RT, social group worker - Constitutional Vitals: Temp Pulse Resp BP Pulse Ox 97.9 F 88 21 157/76 93 04/30/21 08:00 04/30/21 08:01 04/30/21 08:01 04/30/21 08:01 04/30/21 08:01 General appearance: Present: other (Intubated) HEART Score - HEART Score Troponin: Troponin T 1.020 ng/mL (0.00-0.029) H* D 04/23/21 02:36 Results - Labs CBC & Chem 7: 04/30/21 06:00 04/27/21 05:01 Labs: Laboratory Last Values WBC 9.0 K/mm3 (4.5-11.0) 04/26/21 04:49 RBC 3.37 M/mm3 (3.65-5.03) L 04/26/21 04:49 Hgb 10.5 gm/dl (11.8-15.2) L 04/30/21 06:00 Hct 31.3 % (35.5-45.6) L 04/30/21 06:00 MCV 97 fl (84-94) H 04/26/21 04:49 MCH 33 pg (28-32) H 04/26/21 04:49 MCHC 34 % (32-34) 04/26/21 04:49 RDW 14.7 % (13.2-15.2) 04/26/21 04:49 Plt Count 186 K/mm3 (140-440) 04/30/21 06:00 Lymph % (Auto) 3.6 % (13.4-35.0) L 04/23/21 02:36 Hunt % (Auto) 6.7 % (0.0-7.3) 04/23/21 02:36 Eos % (Auto) 0.0 % (0.0-4.3) 04/23/21 02:36 Baso % (Auto) 0.3 % (0.0-1.8) 04/23/21 02:36 Lymph # (Auto) 0.5 K/mm3 (1.2-5.4) L 04/23/21 02:36 Hunt # (Auto) 1.0 K/mm3 (0.0-0.8) H 04/23/21 02:36 Eos # (Auto) 0.0 K/mm3 (0.0-0.4) 04/23/21 02:36 Baso # (Auto) 0.0 K/mm3 (0.0-0.1) 04/23/21 02:36 Seg Neutrophils % 89.4 % (40.0-70.0) H 04/23/21 02:36 Seg Neutrophils # 13.0 K/mm3 (1.8-7.7) H 04/23/21 02:36 PT 14.9 Sec. (12.2-14.9) 04/22/21 18:12 INR 1.17 (0.87-1.13) H 04/22/21 18:12 APTT 36.5 Sec. (24.2-36.6) 04/22/21 18:12 D-Dimer 8003.00 ng/mlDDU (0-234) H 04/23/21 08:58 Heparin Anti-Xa Level 0.34 U.I./ml (0.3-0.7) 04/29/21 18:19 ABG pH 7.485 (7.320-7.450) H 04/29/21 04:00 POC ABG pCO2 36.6 mmHg (32.0-48.0) 04/29/21 04:00 POC ABG pO2 59.3 mmHg (83-108) L 04/29/21 04:00 POC ABG HCO3 27.0 04/29/21 04:00 ABG O2 Saturation 90.3 (0-100) 04/29/21 04:00 POC ABG Base Excess 3.5 04/29/21 04:00 ABG Hemoglobin 10.2 (12.0-17.5) L 04/29/21 04:00 ABG Oxyhemoglobin 89.3 (94-98) L 04/29/21 04:00 ABG Methemoglobin 0.3 (0.0-1.5) 04/29/21 04:00 ABG Sodium 133.5 mmol/L (136.0-145.0) L 04/29/21 04:00 ABG Potassium 4.7 mmol/L (3.40-4.50) H 04/29/21 04:00 ABG Chloride 101.0 mmol/L (98-107) 04/29/21 04:00 ABG Glucose 120 mg/dL (65-95) H 04/29/21 04:00 Carboxyhemoglobin 0.8 (0.5-1.5) 04/29/21 04:00 FiO2 % 30.0 04/29/21 04:00 Sodium 138 mmol/L (137-145) 04/27/21 05:01 Potassium 4.5 mmol/L (3.6-5.0) 04/27/21 05:01 Chloride 99.2 mmol/L (98-107) 04/27/21 05:01 Carbon Dioxide 29 mmol/L (22-30) 04/27/21 05:01 Anion Gap 14 mmol/L 04/27/21 05:01 BUN 40 mg/dL (9-20) H 04/27/21 05:01 Creatinine 1.4 mg/dL (0.8-1.3) H 04/27/21 05:01 Estimated GFR > 60 ml/min 04/27/21 05:01 BUN/Creatinine Ratio 29 % 04/27/21 05:01 Glucose 125 mg/dL (75-100) H 04/27/21 05:01 POC Glucose 124 mg/dL (70-105) H 04/30/21 05:17 Lactic Acid 1.40 mmol/L (0.7-2.0) 04/24/21 07:03 Calcium 8.9 mg/dL (8.4-10.2) 04/27/21 05:01 Magnesium 1.90 mg/dL (1.7-2.3) 04/26/21 04:49 Ferritin 185.5 ng/mL (30.0-300.0) 04/23/21 08:58 Lactate Dehydrogenase 546 units/L (91-180) H 04/23/21 08:58 Troponin T 1.020 ng/mL (0.00-0.029) H* D 04/23/21 02:36 C-Reactive Protein 2.20 mg/dL (0.00-1.30) H 04/23/21 08:58 NT-Pro-B Natriuret Pep 2448 pg/mL (0-900) H 04/22/21 18:12 Triglycerides 107 mg/dL (2-149) 04/22/21 18:12 Cholesterol 136 mg/dL (50-199) 04/22/21 18:12 LDL Cholesterol Direct 78 mg/dL (50-130) 04/22/21 18:12 HDL Cholesterol 58 mg/dL (40-59) 04/22/21 18:12 Cholesterol/HDL Ratio 2.34 % 04/22/21 18:12 Procalcitonin 3.46 ng/mL (<0.15) 04/23/21 08:58 Arterial Blood Glucose 120 mg/dL (65-95) H 04/29/21 04:00 Arterial Blood Ionized Calcium 4.8 mg/dL (4.6-5.3) 04/29/21 04:00 Urine Creatinine 90.4 mg/dL (0.1-20.0) H 04/23/21 13:46 Urine Sodium 123 mmol/L 04/23/21 13:46 Urine Total Protein 103 mg/dL (5-11.8) H 04/23/21 13:46 Coronavirus (PCR) Negative (Negative) 04/23/21 Unknown Cruz/IV: Voiding Method Incontinent Active Medications - Current Medications Current Medications: Generic Name Dose Route Start Last Admin Trade Name Freq PRN Reason Stop Dose Admin Acetaminophen 650 mg 04/22/21 21:26 Acetaminophen 325 Mg Tab PO Q4H PRN Pain MILD(1-3)/Fever >100.5/GIORDANO Albuterol 2.5 mg 04/22/21 21:26 Albuterol 2.5 Mg/3 Ml Nebu IH Q3HRT PRN Shortness Of Breath Albuterol/Ipratropium 1 ampul 04/23/21 02:00 04/30/21 07:13 Ipratropium/Albuterol Sulfate 3 Ml Ampul.Neb IH 1 ampul Q6HRT SHELTON Administration Amlodipine Besylate 10 mg 04/23/21 10:00 04/29/21 11:26 Amlodipine 10 Mg Tab PO Not Given QDAY [facility] Lipase/Protease/Amylase 1 each 04/23/21 09:33 Lipase 10,500/Protease 25,000/Amylase 43,750 (Units) Dr Machado FEEDTUBE PRN PRN For Clogged Feeding Tube Atorvastatin Calcium 80 mg 04/22/21 22:00 04/29/21 21:35 Atorvastatin 40 Mg Tab PO 80 mg QHS [facility] Administration Carvedilol 25 mg 04/23/21 08:00 04/29/21 08:56 Carvedilol 25 Mg Tab PO 25 mg DAILY@0800 SHELTON Administration Dextrose 0 ml 04/22/21 21:26 Dextrose 50% In Water (25gm) 50 Ml Syringe IV Q30MIN PRN Hypoglycemia Protocol Heparin Sodium (Porcine) 4,000 unit 04/22/21 21:39 Heparin 10,000 Units/10 Ml Vial 40 unit/kg (4000 unit) IV Q6H PRN Anti-Xa Assay < 0.1 units/ml Hydralazine HCl 10 mg 04/22/21 21:35 04/26/21 02:22 Hydralazine 20 Mg/1 Ml Inj IV 10 mg Q6H PRN Administration htn Propofol 1,000 mg in 100 mls @ 3 mls/hr 04/22/21 19:00 04/24/21 19:06 Diprivan 10 Mg/Ml IV 0 mcg/kg/min TITR SHELTON 0 mls/hr Titration Protocol 5 MCG/KG/MIN Levetiracetam 750 mg/ Dextrose 107.5 mls @ 400 mls/hr 04/30/21 10:00 IV Q12HR [facility] Insulin Human Lispro 0 unit 04/23/21 00:00 04/30/21 06:15 Insulin Lispro 100 Unit/Ml SUB-Q Not Given Q6HR [facility] Protocol Lorazepam 2 mg 04/22/21 22:52 04/26/21 05:53 Lorazepam 2 Mg/Ml Vial IV 2 mg Q4H PRN Administration Seizures Nitroglycerin 0.4 mg 04/22/21 21:26 Nitroglycerin 0.4 Mg Tab Subl SL .Q5MIN PRN Chest Pain Ondansetron HCl 4 mg 04/22/21 21:26 Ondansetron 4 Mg/2 Ml Inj IV Q8H PRN Nausea And Vomiting Pantoprazole Sodium 40 mg 04/30/21 10:00 Pantoprazole 40 Mg Inj IV BID SHELTON Scopolamine 1 each 04/29/21 17:00 04/29/21 18:38 Scopolamine Transdermal Patch 72 Hr TD 1 each Q3D SHELTON Administration Simple Syrup 15 ml 04/23/21 09:33 Simple Syrup 15 Ml FEEDTUBE PRN PRN Hypoglycemia Simple Syrup 30 ml 04/23/21 09:33 Simple Syrup 15 Ml FEEDTUBE PRN PRN Hypoglycemia Sodium Bicarbonate 325 mg 04/23/21 09:33 Sodium Bicarbonate 325 Mg Tab FEEDTUBE PRN PRN For Clogged Feeding Tube Sodium Chloride 10 ml 04/22/21 22:00 04/29/21 21:36 Sodium Chloride 0.9% 10 Ml Flush Syringe IV 10 ml BID SHELTON Administration Sodium Chloride 10 ml 04/22/21 21:26 Sodium Chloride 0.9% 10 Ml Flush Syringe IV PRN PRN LINE FLUSH Nutrition/Malnutrition Assess - Dietary Evaluation Nutrition/Malnutrition Findings: Nutrition Notes Start: 04/23/21 08:22 Freq: Status: Active Protocol: Document 04/27/21 10:44 CW (Rec: 04/27/21 10:50 CW [id number]) Nutrition Notes Initial or Follow up Reassessment Current Diagnosis Diabetes,Hypertension,Heart Failure,Stroke Other Pertinent Diagnosis Cardiac arrest, AMI Current Diet Vital AF 1.2 at 65 ml/hr Labs/Tests BUN 40 Cr 1.4 BG 125 Pertinent Medications reviewed Height 6 ft Weight 102.6 kg [place] Body Weight (kg) 80.90 BMI 30.7 Weight change and time frame weight fluctuations noted Weight Status Obese Subjective/Other Information F/U for TF tolerance. TF currently running at goal of 65 ml/hr. No reprots of TF intolerance. Percent of energy/protein needs met: 100%/73% Burn Absent Trauma Absent GI Symptoms None Current % PO Negligible Minimum of two criteria No physical signs of malnutrition #1 Nutrition Diagnosis Inadequate oral intake Diagnosis Progress(for reassessment Continues documentation) Is patient on ventilator? Yes Is Patient Ambulatory and/or Out of Bed No REE-([facility]-confined to bed) 2223.804 Kcal/Kg value to use for calculation 18 Approximate Energy Requirements Using 1847 kcal/Kg Calculation Used for Recommendations Kcal/kg Additional Notes Protein needs are >161g (>2g IBW) Fluid needs are 1ml/kcal Nutrition Intervention Change Diet Order: Continue Nutrition Support: Vital 1.2 at 65ml/h Flush with 100ml q4h Kcal 1,872 Protein (gm) 117 Fluid (mL) 1,260 Goal #1 Meet at least 70% of kcal and protein needs via TF Anticipated Discharge Needs: Unable to determine at this time Follow-Up By: 04/30/21 Additional Comments F/U for TF tolerance
--- NOTE | 2021-04-30 08:30 | Event Note ---
Date: 04/30/21 Patient has coffee ground emesis. Stop Aspirin, plavix and heparin. Start Protonix bid
[2021-04-30] MEDS: carvediloL 25 MG TAB PO SCH (08:37)
--- NOTE | 2021-04-30 09:52 | Progress Note ---
Assessment and Plan - Patient Problems (1) Acute respiratory failure Current Visit: Yes Status: Acute (2) Cardiac arrest Current Visit: Yes Status: Acute (3) Encephalopathy Current Visit: Yes Status: Acute (4) Hypertensive emergency Current Visit: Yes Status: Acute Subjective Date of service: 04/30/21 Principal diagnosis: Cardiac; DELMI; Ac hypoxemic resp failure; Ac Encephalopathy; HFrEF; DM II Interval history: UNRESPONSIVE Objective Vital Signs Temp Pulse Pulse Pulse Resp Resp BP 04/30/21 08:01 88 21 157/76 04/30/21 08:00 97.9 F 83 88 21 04/30/21 07:13 81 83 22 145/70 04/30/21 07:00 83 26 H 146/70 04/30/21 06:00 77 26 H 135/69 04/30/21 05:01 69 17 109/57 04/30/21 04:14 82 155/71 04/30/21 04:00 81 76 14 155/71 04/30/21 03:37 97.8 F 04/30/21 03:01 78 24 123/59 04/30/21 02:00 65 19 123/59 04/30/21 01:00 74 19 133/69 04/30/21 00:32 66 117/56 04/30/21 00:00 59 L 59 L 16 117/56 04/29/21 23:56 97.6 F 04/29/21 23:00 62 16 115/55 04/29/21 22:06 64 17 154/73 04/29/21 22:01 58 L 22 154/73 04/29/21 21:00 58 L 16 126/61 04/29/21 20:21 58 L 60 24 126/61 04/29/21 20:00 96.6 F L 57 L 57 L 17 126/61 04/29/21 19:40 97.8 F 04/29/21 19:00 57 L 27 H 116/67 04/29/21 18:00 61 17 124/70 04/29/21 17:00 65 22 118/61 04/29/21 16:00 97.4 F L 61 60 25 H 118/61 04/29/21 15:59 57 L 118/61 04/29/21 15:00 61 21 92/65 04/29/21 14:00 66 21 102/66 04/29/21 13:09 69 24 04/29/21 13:00 65 29 H 104/57 04/29/21 12:00 97 F L 66 66 26 H 104/57 04/29/21 11:40 70 25 H 104/57 04/29/21 11:26 62 101/52 04/29/21 11:00 65 20 120/59 04/29/21 10:00 62 23 101/52 Pulse Ox 04/30/21 08:01 93 04/30/21 08:00 93 04/30/21 07:13 94 04/30/21 07:00 94 04/30/21 06:00 96 04/30/21 05:01 93 04/30/21 04:14 96 04/30/21 04:00 89 04/30/21 03:37 04/30/21 03:01 04/30/21 02:00 97 04/30/21 01:00 97 04/30/21 00:32 99 04/30/21 00:00 100 04/29/21 23:56 04/29/21 23:00 100 04/29/21 22:06 100 04/29/21 22:01 100 04/29/21 21:00 99 04/29/21 20:21 99 04/29/21 20:00 97 04/29/21 19:40 04/29/21 19:00 96 04/29/21 18:00 100 04/29/21 17:00 99 04/29/21 16:00 98 04/29/21 15:59 98 04/29/21 15:00 99 04/29/21 14:00 98 04/29/21 13:09 04/29/21 13:00 97 04/29/21 12:00 95 04/29/21 11:40 97 04/29/21 11:26 04/29/21 11:00 96 04/29/21 10:00 95 - Physical Examination General: Other (Unresponsive, on the vent) HEENT: Positive: Other (Pupils fixed) Neck: Positive: neck supple Cardiac: Positive: Reg Rate and Rhythm Lungs: Positive: clear to auscultation Neuro: Positive: Other (Unresponsive, on the vent) Abdomen: Positive: Soft, Active Bowel Sounds Skin: Positive: Clear Extremities: Present: Other (trace edema - UE). Absent: edema - Labs and Meds CBC 04/30/21 Range/Units 06:00 Hgb 10.5 L (11.8-15.2) gm/dl Hct 31.3 L (35.5-45.6) % Plt Count 186 (140-440) K/mm3 - Allied health notes Allied health notes reviewed: nursing
[2021-04-30] MEDS: amLODIPine 10 MG TAB PO SCH (09:53)
[2021-04-30] MEDS ORDERED: levETIRAcetam 750 MG in DEXTROSE 5% IN WATER 100 ML IV SCH (10:00)
[2021-04-30] MEDS ORDERED: PANTOPRAZOLE 40 MG INJ IV SCH (10:00)
--- NOTE | 2021-04-30 11:06 | Progress Note ---
Assessment and Plan Cardiac arrest with ROSC Acute hypoxemic respiratory failure Acute kidney injury secondary to vasomotor nephropathy COVID-19 PUI NSTEMI Acute Encephalopathy Myoclonic jerks vs Seizures Lactic acidosis Elevated D-dimer CAD s/p CABG x3 Ischemic cardiomyopathy with EF of 40 to 45% Hypertension Hyperlipidemia CVA Diabetes type II (will follow families wishes and get Hospice evaluation) - placed Scopolamine patch for better secretion control - hospice evaluation ongoing - no new issues otherwise, continue care as below; - watch clinically off AB's re: fevers / WBC - continue IV Heparin re: NSTEMI and follow platelets - follow neurology evaluation - prn vasopressors for target MAP > 65 mmHg - inotropic support per cardiology recommendations - continue to wean supplemental oxygen for target O2 sat's > 90% acutely - VAP bundle addressed - continue lung protective strategies - continue bronchodilators with pulmonary hygiene per RT - wean per pulmonary driven protocols otherwise - continue Daily SAT and SBT assessment as tolerated - continue accuchecks with glycemic control per SSI (While critically ill target blood glucose of 140-180 mg/dL; avoid hypoglycemia) - sedation prn for target RASS 0 to -1 - avoid nephrotoxins, renally dose all medications - continue to avoid benzodiazepine's, reduce the possibility of delirium - AB's per ID rec's - prn analgesia per CPOT score - Maintenance of sleep-wake cycle, avoid delirium - enteral nutritional support at goal rate as tolerated - G.I. & VTE prophylaxis - PT/OT/ROM exercises - mobility protocols for pressure ulcer prophylaxis - Monitor hemodynamics closely - continue other care per attending / other consultants - discharge planning ongoing concurrently COVID SPECIFIC INTERVENTIONS - Remdesivir as per ID/Pulmonary developed protocols - consider systemic steroids for severe COVID-19 infection empirically - follow repeat COVID tests results - zinc and vitamin C supplementation - Monitor inflammatory markers per facility protocol - ferritin, Ddimer, CRP - consider therapeutic anticoagulation per system Protocol based on d-dimer and clinical considerations - Continue contact and airborne isolation .... Re-evaluate in am & prn CONDITION: CRITICAL PROGNOSIS: GUARDED CODE STATUS: FULL CODE The high probability of a clinically significant, sudden or life-threatening deterioration of the [respiratory, cardiovascular & neurologic] system(s) required my full and direct attention, intervention and personal management. The aggregate critical care time was [32] minutes without overlap. Time includes spent on; [x] Data Review and interpretation [x] Patient assessment and monitoring of vital signs [x] Documentation [x] Medication orders and management Subjective Date of service: 04/30/21 Principal diagnosis: Cardiac; DELMI; Ac hypoxemic resp failure; Ac Encephalopathy; HFrEF; DM II Interval history: Patient is seen today for: Cardiac arrest with ROSC; DELMI; Acute hypoxemic respiratory failure; PUI COVID-19; NSTEMI; Acute Encephalopathy Myoclonic jerks vs Seizures; Ischemic cardiomyopathy with EF of 20 to 25%; DM II; H/O CVA Seen and examined at bedside; 24hour events reviewed; nursing and respiratory care staff consulted; no adverse overnight events reported to me; resting peacefully in bed; remains on MVS; Hospice evaluation ongoing; episode of coffee ground emesis reported and started on Protonix; Objective Vital Signs - 12hr 04/29/21 04/30/21 04/30/21 23:56 00:00 00:32 Temperature 97.6 F Pulse Rate 59 L 66 Pulse Rate [ Bilateral Throughout] Pulse Rate [ 59 L From Monitor] Respiratory 16 Rate Respiratory Rate [Bilateral Throughout] Blood Pressure 117/56 117/56 O2 Sat by Pulse 100 99 Oximetry 04/30/21 04/30/21 04/30/21 01:00 02:00 03:01 Temperature Pulse Rate 74 65 78 Pulse Rate [ Bilateral Throughout] Pulse Rate [ From Monitor] Respiratory 19 19 24 Rate Respiratory Rate [Bilateral Throughout] Blood Pressure 133/69 123/59 123/59 O2 Sat by Pulse 97 97 Oximetry 04/30/21 04/30/21 04/30/21 03:37 04:00 04:14 Temperature 97.8 F Pulse Rate 81 82 Pulse Rate [ Bilateral Throughout] Pulse Rate [ 76 From Monitor] Respiratory 14 Rate Respiratory Rate [Bilateral Throughout] Blood Pressure 155/71 155/71 O2 Sat by Pulse 89 96 Oximetry 04/30/21 04/30/21 04/30/21 05:01 06:00 07:00 Temperature Pulse Rate 69 77 83 Pulse Rate [ Bilateral Throughout] Pulse Rate [ From Monitor] Respiratory 17 26 H 26 H Rate Respiratory Rate [Bilateral Throughout] Blood Pressure 109/57 135/69 146/70 O2 Sat by Pulse 93 96 94 Oximetry 04/30/21 04/30/21 04/30/21 07:13 08:00 08:01 Temperature 97.9 F Pulse Rate 81 83 88 Pulse Rate [ 83 Bilateral Throughout] Pulse Rate [ 88 From Monitor] Respiratory 21 21 Rate Respiratory 22 Rate [Bilateral Throughout] Blood Pressure 145/70 157/76 O2 Sat by Pulse 94 93 93 Oximetry 04/30/21 04/30/21 04/30/21 09:00 10:00 11:00 Temperature Pulse Rate 76 82 85 Pulse Rate [ Bilateral Throughout] Pulse Rate [ From Monitor] Respiratory 28 H 22 32 H Rate Respiratory Rate [Bilateral Throughout] Blood Pressure 126/62 127/66 154/76 O2 Sat by Pulse 92 94 95 Oximetry Constitutional: no acute distress, other (elderly obese male without significant patient-ventilator dyssynchrony) Eyes: non-icteric ENT: oropharynx moist, oropharyngeal exudate pre (copious), other (ETT 24 cm PERNELL) Neck: supple, no lymphadenopathy, no JVD Effort: normal Ascultation: Bilateral: clear, diminished breath sounds, rhonchi (scant) Percussion: Bilateral: not dull Cardiovascular: regular rate and rhythm Gastrointestinal: normoactive bowel sounds, soft, non-tender, non-distended (protuberant) Integumentary: other (scars in abdomen and lower extremities) Extremities: no cyanosis, no edema, pulses normal, no ischemia or petechiae Neurologic: pupils equal and round, unable to assess Psychiatric: other (unable to assess re: AMS) CBC and BMP: 04/30/21 06:00 04/27/21 05:01 ABG, PT/INR, D-dimer: ABG ABG pH 7.485 (7.320-7.450) H 04/29/21 04:00 POC ABG pCO2 36.6 mmHg (32.0-48.0) 04/29/21 04:00 POC ABG pO2 59.3 mmHg (83-108) L 04/29/21 04:00 POC ABG HCO3 27.0 04/29/21 04:00 ABG O2 Saturation 90.3 (0-100) 04/29/21 04:00 PT/INR, D-dimer PT 14.9 Sec. (12.2-14.9) 04/22/21 18:12 INR 1.17 (0.87-1.13) H 04/22/21 18:12 D-Dimer 8003.00 ng/mlDDU (0-234) H 04/23/21 08:58 Abnormal lab findings: Abnormal Labs 04/22/21 04/22/21 04/22/21 18:12 18:12 18:12 WBC 14.6 H RBC Hgb Hct MCV 102 H MCH 33 H Plt Count Lymph % (Auto) Lymph # (Auto) [place] # (Auto) Seg Neutrophils % 70.8 H Seg Neutrophils # 10.3 H INR 1.17 H D-Dimer Heparin Anti-Xa Level ABG pH POC ABG pCO2 POC ABG pO2 ABG Hemoglobin ABG Oxyhemoglobin ABG Sodium ABG Potassium ABG Glucose Carboxyhemoglobin Potassium Chloride 93.4 L Carbon Dioxide 21 L BUN Creatinine Glucose 186 H POC Glucose Lactic Acid Lactate Dehydrogenase Troponin T 0.031 H C-Reactive Protein NT-Pro-B Natriuret Pep 2448 H Arterial Blood Glucose Arterial Blood Ionized Calcium Urine Creatinine Urine Total Protein 04/22/21 04/22/21 04/22/21 18:12 19:17 20:58 WBC RBC Hgb Hct MCV MCH Plt Count Lymph % (Auto) Lymph # (Auto) [place] # (Auto) Seg Neutrophils % Seg Neutrophils # INR D-Dimer Heparin Anti-Xa Level ABG pH POC ABG pCO2 POC ABG pO2 ABG Hemoglobin ABG Oxyhemoglobin ABG Sodium ABG Potassium ABG Glucose Carboxyhemoglobin Potassium Chloride Carbon Dioxide BUN Creatinine Glucose POC Glucose Lactic Acid 11.00 H* 9.50 H* 5.70 H* Lactate Dehydrogenase Troponin T C-Reactive Protein NT-Pro-B Natriuret Pep Arterial Blood Glucose Arterial Blood Ionized Calcium Urine Creatinine Urine Total Protein 04/22/21 04/22/21 04/22/21 20:58 21:10 23:03 WBC RBC Hgb Hct MCV MCH Plt Count Lymph % (Auto) Lymph # (Auto) [place] # (Auto) Seg Neutrophils % Seg Neutrophils # INR D-Dimer Heparin Anti-Xa Level ABG pH 7.492 H POC ABG pCO2 30.4 L POC ABG pO2 80.3 L ABG Hemoglobin ABG Oxyhemoglobin ABG Sodium ABG Potassium 3.2 L ABG Glucose 202 H Carboxyhemoglobin 1.6 H Potassium Chloride Carbon Dioxide BUN Creatinine Glucose POC Glucose 175 H Lactic Acid Lactate Dehydrogenase Troponin T 0.363 H* D C-Reactive Protein NT-Pro-B Natriuret Pep Arterial Blood Glucose 202 H Arterial Blood Ionized Calcium 4.2 L Urine Creatinine Urine Total Protein 04/22/21 04/23/21 04/23/21 23:40 02:36 02:36 WBC 14.6 H RBC Hgb Hct MCV 97 H MCH 33 H Plt Count Lymph % (Auto) 3.6 L Lymph # (Auto) 0.5 L [place] # (Auto) 1.0 H Seg Neutrophils % 89.4 H Seg Neutrophils # 13.0 H INR D-Dimer Heparin Anti-Xa Level ABG pH POC ABG pCO2 POC ABG pO2 ABG Hemoglobin ABG Oxyhemoglobin ABG Sodium ABG Potassium ABG Glucose Carboxyhemoglobin Potassium Chloride Carbon Dioxide BUN Creatinine Glucose POC Glucose Lactic Acid 3.60 H* Lactate Dehydrogenase Troponin T 1.020 H* D C-Reactive Protein NT-Pro-B Natriuret Pep Arterial Blood Glucose Arterial Blood Ionized Calcium Urine Creatinine Urine Total Protein 04/23/21 04/23/21 04/23/21 02:36 03:54 05:22 WBC RBC Hgb Hct MCV MCH Plt Count Lymph % (Auto) Lymph # (Auto) [place] # (Auto) Seg Neutrophils % Seg Neutrophils # INR D-Dimer Heparin Anti-Xa Level ABG pH 7.536 H POC ABG pCO2 31.1 L POC ABG pO2 112.7 H ABG Hemoglobin ABG Oxyhemoglobin ABG Sodium ABG Potassium 3.3 L ABG Glucose 129 H Carboxyhemoglobin Potassium Chloride 97.4 L Carbon Dioxide BUN 21 H Creatinine 1.6 H Glucose 145 H POC Glucose 123 H Lactic Acid Lactate Dehydrogenase Troponin T C-Reactive Protein NT-Pro-B Natriuret Pep Arterial Blood Glucose 129 H Arterial Blood Ionized Calcium 4.1 L Urine Creatinine Urine Total Protein 04/23/21 04/23/21 04/23/21 08:58 08:58 08:58 WBC RBC Hgb Hct MCV MCH Plt Count Lymph % (Auto) Lymph # (Auto) [place] # (Auto) Seg Neutrophils % Seg Neutrophils # INR D-Dimer 8003.00 H Heparin Anti-Xa Level ABG pH POC ABG pCO2 POC ABG pO2 ABG Hemoglobin ABG Oxyhemoglobin ABG Sodium ABG Potassium ABG Glucose Carboxyhemoglobin Potassium Chloride Carbon Dioxide BUN Creatinine Glucose POC Glucose Lactic Acid 2.40 H* Lactate Dehydrogenase 546 H Troponin T C-Reactive Protein 2.20 H NT-Pro-B Natriuret Pep Arterial Blood Glucose Arterial Blood Ionized Calcium Urine Creatinine Urine Total Protein 04/23/21 04/23/21 04/23/21 12:07 13:46 17:29 WBC RBC Hgb Hct MCV MCH Plt Count Lymph % (Auto) Lymph # (Auto) [place] # (Auto) Seg Neutrophils % Seg Neutrophils # INR D-Dimer Heparin Anti-Xa Level ABG pH POC ABG pCO2 POC ABG pO2 ABG Hemoglobin ABG Oxyhemoglobin ABG Sodium ABG Potassium ABG Glucose Carboxyhemoglobin Potassium Chloride Carbon Dioxide BUN Creatinine Glucose POC Glucose 150 H 145 H Lactic Acid Lactate Dehydrogenase Troponin T C-Reactive Protein NT-Pro-B Natriuret Pep Arterial Blood Glucose Arterial Blood Ionized Calcium Urine Creatinine 90.4 H Urine Total Protein 103 H 04/23/21 04/24/21 04/24/21 23:51 04:01 05:02 WBC RBC Hgb Hct MCV MCH Plt Count Lymph % (Auto) Lymph # (Auto) [place] # (Auto) Seg Neutrophils % Seg Neutrophils # INR D-Dimer Heparin Anti-Xa Level ABG pH 7.485 H POC ABG pCO2 POC ABG pO2 ABG Hemoglobin ABG Oxyhemoglobin ABG Sodium 135.8 L ABG Potassium ABG Glucose 140 H Carboxyhemoglobin Potassium Chloride Carbon Dioxide BUN Creatinine Glucose POC Glucose 140 H 136 H Lactic Acid Lactate Dehydrogenase Troponin T C-Reactive Protein NT-Pro-B Natriuret Pep Arterial Blood Glucose 140 H Arterial Blood Ionized Calcium 4.3 L Urine Creatinine Urine Total Protein 04/24/21 04/24/21 04/24/21 07:03 07:03 11:40 WBC 12.4 H RBC 3.60 L Hgb 11.7 L Hct 34.7 L MCV 96 H MCH 33 H Plt Count Lymph % (Auto) Lymph # (Auto) [place] # (Auto) Seg Neutrophils % Seg Neutrophils # INR D-Dimer Heparin Anti-Xa Level ABG pH POC ABG pCO2 POC ABG pO2 ABG Hemoglobin ABG Oxyhemoglobin ABG Sodium ABG Potassium ABG Glucose Carboxyhemoglobin Potassium 3.5 L Chloride Carbon Dioxide BUN 28 H Creatinine 2.2 H Glucose 133 H POC Glucose 153 H Lactic Acid Lactate Dehydrogenase Troponin T C-Reactive Protein NT-Pro-B Natriuret Pep Arterial Blood Glucose Arterial Blood Ionized Calcium Urine Creatinine Urine Total Protein 04/24/21 04/24/21 04/25/21 17:20 23:39 03:05 WBC RBC Hgb Hct MCV MCH Plt Count Lymph % (Auto) Lymph # (Auto) [place] # (Auto) Seg Neutrophils % Seg Neutrophils # INR D-Dimer Heparin Anti-Xa Level ABG pH 7.462 H POC ABG pCO2 POC ABG pO2 80.2 L ABG Hemoglobin 11.0 L ABG Oxyhemoglobin ABG Sodium ABG Potassium 3.3 L ABG Glucose 137 H Carboxyhemoglobin Potassium Chloride Carbon Dioxide BUN Creatinine Glucose POC Glucose 170 H 130 H Lactic Acid Lactate Dehydrogenase Troponin T C-Reactive Protein NT-Pro-B Natriuret Pep Arterial Blood Glucose 137 H Arterial Blood Ionized Calcium 4.5 L Urine Creatinine Urine Total Protein 04/25/21 04/25/21 04/25/21 05:31 08:55 08:55 WBC RBC 3.32 L Hgb 10.8 L Hct 32.5 L MCV 98 H MCH Plt Count 116 L Lymph % (Auto) Lymph # (Auto) [place] # (Auto) Seg Neutrophils % Seg Neutrophils # INR D-Dimer Heparin Anti-Xa Level ABG pH POC ABG pCO2 POC ABG pO2 ABG Hemoglobin ABG Oxyhemoglobin ABG Sodium ABG Potassium ABG Glucose Carboxyhemoglobin Potassium 3.4 L Chloride Carbon Dioxide BUN 34 H Creatinine 1.9 H Glucose 123 H POC Glucose 152 H Lactic Acid Lactate Dehydrogenase Troponin T C-Reactive Protein NT-Pro-B Natriuret Pep Arterial Blood Glucose Arterial Blood Ionized Calcium Urine Creatinine Urine Total Protein 04/25/21 04/25/21 04/25/21 11:55 17:25 23:28 WBC RBC Hgb Hct MCV MCH Plt Count Lymph % (Auto) Lymph # (Auto) [place] # (Auto) Seg Neutrophils % Seg Neutrophils # INR D-Dimer Heparin Anti-Xa Level ABG pH POC ABG pCO2 POC ABG pO2 ABG Hemoglobin ABG Oxyhemoglobin ABG Sodium ABG Potassium ABG Glucose Carboxyhemoglobin Potassium Chloride Carbon Dioxide BUN Creatinine Glucose POC Glucose 142 H 121 H 141 H Lactic Acid Lactate Dehydrogenase Troponin T C-Reactive Protein NT-Pro-B Natriuret Pep Arterial Blood Glucose Arterial Blood Ionized Calcium Urine Creatinine Urine Total Protein 04/26/21 04/26/21 04/26/21 04:49 05:00 05:40 WBC RBC 3.37 L Hgb 11.1 L Hct 32.6 L MCV 97 H MCH 33 H Plt Count Lymph % (Auto) Lymph # (Auto) [place] # (Auto) Seg Neutrophils % Seg Neutrophils # INR D-Dimer Heparin Anti-Xa Level ABG pH 7.495 H POC ABG pCO2 POC ABG pO2 ABG Hemoglobin 11.6 L ABG Oxyhemoglobin ABG Sodium ABG Potassium ABG Glucose 134 H Carboxyhemoglobin Potassium Chloride Carbon Dioxide BUN Creatinine Glucose POC Glucose 127 H Lactic Acid Lactate Dehydrogenase Troponin T C-Reactive Protein NT-Pro-B Natriuret Pep Arterial Blood Glucose 134 H Arterial Blood Ionized Calcium Urine Creatinine Urine Total Protein 04/26/21 04/26/21 04/26/21 08:54 08:54 11:07 WBC RBC Hgb Hct MCV MCH Plt Count Lymph % (Auto) Lymph # (Auto) [place] # (Auto) Seg Neutrophils % Seg Neutrophils # INR D-Dimer Heparin Anti-Xa Level 0.20 L ABG pH POC ABG pCO2 POC ABG pO2 ABG Hemoglobin ABG Oxyhemoglobin ABG Sodium ABG Potassium ABG Glucose Carboxyhemoglobin Potassium Chloride Carbon Dioxide BUN 36 H Creatinine 1.7 H Glucose 132 H POC Glucose 128 H Lactic Acid Lactate Dehydrogenase Troponin T C-Reactive Protein NT-Pro-B Natriuret Pep Arterial Blood Glucose Arterial Blood Ionized Calcium Urine Creatinine Urine Total Protein 04/26/21 04/26/21 04/27/21 18:22 23:30 05:01 WBC RBC Hgb Hct MCV MCH Plt Count Lymph % (Auto) Lymph # (Auto) [place] # (Auto) Seg Neutrophils % Seg Neutrophils # INR D-Dimer Heparin Anti-Xa Level ABG pH POC ABG pCO2 POC ABG pO2 ABG Hemoglobin ABG Oxyhemoglobin ABG Sodium ABG Potassium ABG Glucose Carboxyhemoglobin Potassium Chloride Carbon Dioxide BUN 40 H Creatinine 1.4 H Glucose 125 H POC Glucose 136 H 147 H Lactic Acid Lactate Dehydrogenase Troponin T C-Reactive Protein NT-Pro-B Natriuret Pep Arterial Blood Glucose Arterial Blood Ionized Calcium Urine Creatinine Urine Total Protein 04/27/21 04/27/21 04/27/21 05:32 11:26 16:58 WBC RBC Hgb Hct MCV MCH Plt Count Lymph % (Auto) Lymph # (Auto) [place] # (Auto) Seg Neutrophils % Seg Neutrophils # INR D-Dimer Heparin Anti-Xa Level ABG pH POC ABG pCO2 POC ABG pO2 ABG Hemoglobin ABG Oxyhemoglobin ABG Sodium ABG Potassium ABG Glucose Carboxyhemoglobin Potassium Chloride Carbon Dioxide BUN Creatinine Glucose POC Glucose 137 H 139 H 144 H Lactic Acid Lactate Dehydrogenase Troponin T C-Reactive Protein NT-Pro-B Natriuret Pep Arterial Blood Glucose Arterial Blood Ionized Calcium Urine Creatinine Urine Total Protein 04/27/21 04/28/21 04/28/21 23:05 04:22 04:42 WBC RBC Hgb 10.3 L Hct 30.3 L MCV MCH Plt Count Lymph % (Auto) Lymph # (Auto) [place] # (Auto) Seg Neutrophils % Seg Neutrophils # INR D-Dimer Heparin Anti-Xa Level ABG pH 7.478 H POC ABG pCO2 POC ABG pO2 ABG Hemoglobin 10.2 L ABG Oxyhemoglobin ABG Sodium 132.9 L ABG Potassium ABG Glucose 139 H Carboxyhemoglobin Potassium Chloride Carbon Dioxide BUN Creatinine Glucose POC Glucose 140 H Lactic Acid Lactate Dehydrogenase Troponin T C-Reactive Protein NT-Pro-B Natriuret Pep Arterial Blood Glucose 139 H Arterial Blood Ionized Calcium Urine Creatinine Urine Total Protein 04/28/21 04/28/21 04/28/21 05:12 11:45 18:04 WBC RBC Hgb Hct MCV MCH Plt Count Lymph % (Auto) Lymph # (Auto) [place] # (Auto) Seg Neutrophils % Seg Neutrophils # INR D-Dimer Heparin Anti-Xa Level ABG pH POC ABG pCO2 POC ABG pO2 ABG Hemoglobin ABG Oxyhemoglobin ABG Sodium ABG Potassium ABG Glucose Carboxyhemoglobin Potassium Chloride Carbon Dioxide BUN Creatinine Glucose POC Glucose 116 H 114 H 116 H Lactic Acid Lactate Dehydrogenase Troponin T C-Reactive Protein NT-Pro-B Natriuret Pep Arterial Blood Glucose Arterial Blood Ionized Calcium Urine Creatinine Urine Total Protein 04/28/21 04/29/21 04/29/21 23:36 04:00 05:34 WBC RBC Hgb Hct MCV MCH Plt Count Lymph % (Auto) Lymph # (Auto) [place] # (Auto) Seg Neutrophils % Seg Neutrophils # INR D-Dimer Heparin Anti-Xa Level ABG pH 7.485 H POC ABG pCO2 POC ABG pO2 59.3 L ABG Hemoglobin 10.2 L ABG Oxyhemoglobin 89.3 L ABG Sodium 133.5 L ABG Potassium 4.7 H ABG Glucose 120 H Carboxyhemoglobin Potassium Chloride Carbon Dioxide BUN Creatinine Glucose POC Glucose 120 H 118 H Lactic Acid Lactate Dehydrogenase Troponin T C-Reactive Protein NT-Pro-B Natriuret Pep Arterial Blood Glucose 120 H Arterial Blood Ionized Calcium Urine Creatinine Urine Total Protein 06/05/1404/29/21 04/29/21 11:18 16:28 23:36 WBC RBC Hgb Hct MCV MCH Plt Count Lymph % (Auto) Lymph # (Auto) [place] # (Auto) Seg Neutrophils % Seg Neutrophils # INR D-Dimer Heparin Anti-Xa Level ABG pH POC ABG pCO2 POC ABG pO2 ABG Hemoglobin ABG Oxyhemoglobin ABG Sodium ABG Potassium ABG Glucose Carboxyhemoglobin Potassium Chloride Carbon Dioxide BUN Creatinine Glucose POC Glucose 120 H 118 H 128 H Lactic Acid Lactate Dehydrogenase Troponin T C-Reactive Protein NT-Pro-B Natriuret Pep Arterial Blood Glucose Arterial Blood Ionized Calcium Urine Creatinine Urine Total Protein 04/30/21 04/30/21 05:17 06:00 WBC RBC Hgb 10.5 L Hct 31.3 L MCV MCH Plt Count Lymph % (Auto) Lymph # (Auto) [place] # (Auto) Seg Neutrophils % Seg Neutrophils # INR D-Dimer Heparin Anti-Xa Level ABG pH POC ABG pCO2 POC ABG pO2 ABG Hemoglobin ABG Oxyhemoglobin ABG Sodium ABG Potassium ABG Glucose Carboxyhemoglobin Potassium Chloride Carbon Dioxide BUN Creatinine Glucose POC Glucose 124 H Lactic Acid Lactate Dehydrogenase Troponin T C-Reactive Protein NT-Pro-B Natriuret Pep Arterial Blood Glucose Arterial Blood Ionized Calcium Urine Creatinine Urine Total Protein Allied health notes reviewed: nursing
--- NOTE | 2021-04-30 11:25 | Progress Note ---
Hospitalist Physical - Constitutional Vitals: Temp Pulse Resp BP Pulse Ox 97.9 F 85 32 H 154/76 95 04/30/21 08:00 04/30/21 11:00 04/30/21 11:00 04/30/21 11:00 04/30/21 11:00 General appearance: Present: other (Intubated) HEART Score - HEART Score Troponin: Troponin T 1.020 ng/mL (0.00-0.029) H* D 04/23/21 02:36 Results - Labs CBC & Chem 7: 04/30/21 06:00 04/27/21 05:01 Labs: Laboratory Last Values WBC 9.0 K/mm3 (4.5-11.0) 04/26/21 04:49 RBC 3.37 M/mm3 (3.65-5.03) L 04/26/21 04:49 Hgb 10.5 gm/dl (11.8-15.2) L 04/30/21 06:00 Hct 31.3 % (35.5-45.6) L 04/30/21 06:00 MCV 97 fl (84-94) H 04/26/21 04:49 MCH 33 pg (28-32) H 04/26/21 04:49 MCHC 34 % (32-34) 04/26/21 04:49 RDW 14.7 % (13.2-15.2) 04/26/21 04:49 Plt Count 186 K/mm3 (140-440) 04/30/21 06:00 Lymph % (Auto) 3.6 % (13.4-35.0) L 04/23/21 02:36 [place] % (Auto) 6.7 % (0.0-7.3) 04/23/21 02:36 Eos % (Auto) 0.0 % (0.0-4.3) 04/23/21 02:36 Baso % (Auto) 0.3 % (0.0-1.8) 04/23/21 02:36 Lymph # (Auto) 0.5 K/mm3 (1.2-5.4) L 04/23/21 02:36 [place] # (Auto) 1.0 K/mm3 (0.0-0.8) H 04/23/21 02:36 Eos # (Auto) 0.0 K/mm3 (0.0-0.4) 04/23/21 02:36 Baso # (Auto) 0.0 K/mm3 (0.0-0.1) 04/23/21 02:36 Seg Neutrophils % 89.4 % (40.0-70.0) H 04/23/21 02:36 Seg Neutrophils # 13.0 K/mm3 (1.8-7.7) H 04/23/21 02:36 PT 14.9 Sec. (12.2-14.9) 04/22/21 18:12 INR 1.17 (0.87-1.13) H 04/22/21 18:12 APTT 36.5 Sec. (24.2-36.6) 04/22/21 18:12 D-Dimer 8003.00 ng/mlDDU (0-234) H 04/23/21 08:58 Heparin Anti-Xa Level 0.34 U.I./ml (0.3-0.7) 04/29/21 18:19 ABG pH 7.485 (7.320-7.450) H 04/29/21 04:00 POC ABG pCO2 36.6 mmHg (32.0-48.0) 04/29/21 04:00 POC ABG pO2 59.3 mmHg (83-108) L 04/29/21 04:00 POC ABG HCO3 27.0 04/29/21 04:00 ABG O2 Saturation 90.3 (0-100) 04/29/21 04:00 POC ABG Base Excess 3.5 04/29/21 04:00 ABG Hemoglobin 10.2 (12.0-17.5) L 04/29/21 04:00 ABG Oxyhemoglobin 89.3 (94-98) L 04/29/21 04:00 ABG Methemoglobin 0.3 (0.0-1.5) 04/29/21 04:00 ABG Sodium 133.5 mmol/L (136.0-145.0) L 04/29/21 04:00 ABG Potassium 4.7 mmol/L (3.40-4.50) H 04/29/21 04:00 ABG Chloride 101.0 mmol/L (98-107) 04/29/21 04:00 ABG Glucose 120 mg/dL (65-95) H 04/29/21 04:00 Carboxyhemoglobin 0.8 (0.5-1.5) 04/29/21 04:00 FiO2 % 30.0 04/29/21 04:00 Sodium 138 mmol/L (137-145) 04/27/21 05:01 Potassium 4.5 mmol/L (3.6-5.0) 04/27/21 05:01 Chloride 99.2 mmol/L (98-107) 04/27/21 05:01 Carbon Dioxide 29 mmol/L (22-30) 04/27/21 05:01 Anion Gap 14 mmol/L 04/27/21 05:01 BUN 40 mg/dL (9-20) H 04/27/21 05:01 Creatinine 1.4 mg/dL (0.8-1.3) H 04/27/21 05:01 Estimated GFR > 60 ml/min 04/27/21 05:01 BUN/Creatinine Ratio 29 % 04/27/21 05:01 Glucose 125 mg/dL (75-100) H 04/27/21 05:01 POC Glucose 124 mg/dL (70-105) H 04/30/21 05:17 Lactic Acid 1.40 mmol/L (0.7-2.0) 04/24/21 07:03 Calcium 8.9 mg/dL (8.4-10.2) 04/27/21 05:01 Magnesium 1.90 mg/dL (1.7-2.3) 04/26/21 04:49 Ferritin 185.5 ng/mL (30.0-300.0) 04/23/21 08:58 Lactate Dehydrogenase 546 units/L (91-180) H 04/23/21 08:58 Troponin T 1.020 ng/mL (0.00-0.029) H* D 04/23/21 02:36 C-Reactive Protein 2.20 mg/dL (0.00-1.30) H 04/23/21 08:58 NT-Pro-B Natriuret Pep 2448 pg/mL (0-900) H 04/22/21 18:12 Triglycerides 107 mg/dL (2-149) 04/22/21 18:12 Cholesterol 136 mg/dL (50-199) 04/22/21 18:12 LDL Cholesterol Direct 78 mg/dL (50-130) 04/22/21 18:12 HDL Cholesterol 58 mg/dL (40-59) 04/22/21 18:12 Cholesterol/HDL Ratio 2.34 % 04/22/21 18:12 Procalcitonin 3.46 ng/mL (<0.15) 04/23/21 08:58 Arterial Blood Glucose 120 mg/dL (65-95) H 04/29/21 04:00 Arterial Blood Ionized Calcium 4.8 mg/dL (4.6-5.3) 04/29/21 04:00 Urine Creatinine 90.4 mg/dL (0.1-20.0) H 04/23/21 13:46 Urine Sodium 123 mmol/L 04/23/21 13:46 Urine Total Protein 103 mg/dL (5-11.8) H 04/23/21 13:46 Coronavirus (PCR) Negative (Negative) 04/23/21 Unknown Cruz/IV: Voiding Method Incontinent Active Medications - Current Medications Current Medications: Generic Name Dose Route Start Last Admin Trade Name Freq PRN Reason Stop Dose Admin Acetaminophen 650 mg 04/22/21 21:26 Acetaminophen 325 Mg Tab PO Q4H PRN Pain MILD(1-3)/Fever >100.5/GIORDANO Albuterol 2.5 mg 04/22/21 21:26 Albuterol 2.5 Mg/3 Ml Nebu IH Q3HRT PRN Shortness Of Breath Albuterol/Ipratropium 1 ampul 04/23/21 02:00 04/30/21 07:13 Ipratropium/Albuterol Sulfate 3 Ml Ampul.Neb IH 1 ampul Q6HRT SHE[place] Administration Amlodipine Besylate 10 mg 04/23/21 10:00 04/30/21 09:53 Amlodipine 10 Mg Tab PO Not Given QDAY [facility] Lipase/Protease/Amylase 1 each 04/23/21 09:33 Lipase 10,500/Protease 25,000/Amylase 43,750 (Units) Dr Carter LARSENTUBE PRN PRN For Clogged Feeding Tube Atorvastatin Calcium 80 mg 04/22/21 22:00 04/29/21 21:35 Atorvastatin 40 Mg Tab PO 80 mg QHS SHELTON Administration Carvedilol 25 mg 04/23/21 08:00 04/30/21 08:37 Carvedilol 25 Mg Tab PO Not Given DAILY@0800 SHE[place]TON Dextrose 0 ml 04/22/21 21:26 Dextrose 50% In Water (25gm) 50 Ml Syringe IV Q30MIN PRN Hypoglycemia Protocol Hydralazine HCl 10 mg 04/22/21 21:35 04/26/21 02:22 Hydralazine 20 Mg/1 Ml Inj IV 10 mg Q6H PRN Administration htn Propofol 1,000 mg in 100 mls @ 3 mls/hr 04/22/21 19:00 04/24/21 19:06 Diprivan 10 Mg/Ml IV 0 mcg/kg/min TITR SHELTON 0 mls/hr Titration Protocol 5 MCG/KG/MIN Levetiracetam 750 mg/ Dextrose 107.5 mls @ 400 mls/hr 04/30/21 10:00 04/30/21 09:52 IV 400 mls/hr Q12HR SHE[place] Administration Insulin Human Lispro 0 unit 04/23/21 00:00 04/30/21 06:15 Insulin Lispro 100 Unit/Ml SUB-Q Not Given Q6HR [facility] Protocol Lorazepam 2 mg 04/22/21 22:52 04/26/21 05:53 Lorazepam 2 Mg/Ml Vial IV 2 mg Q4H PRN Administration Seizures Nitroglycerin 0.4 mg 04/22/21 21:26 Nitroglycerin 0.4 Mg Tab Subl SL .Q5MIN PRN Chest Pain Ondansetron HCl 4 mg 04/22/21 21:26 Ondansetron 4 Mg/2 Ml Inj IV Q8H PRN Nausea And Vomiting Pantoprazole Sodium 40 mg 04/30/21 10:00 04/30/21 09:53 Pantoprazole 40 Mg Inj IV 40 mg BID SHE[place] Administration Scopolamine 1 each 04/29/21 17:00 04/29/21 18:38 Scopolamine Transdermal Patch 72 Hr TD 1 each Q3D SHE[place] Administration Simple Syrup 15 ml 04/23/21 09:33 Simple Syrup 15 Ml FEEDTUBE PRN PRN Hypoglycemia Simple Syrup 30 ml 04/23/21 09:33 Simple Syrup 15 Ml FEEDTUBE PRN PRN Hypoglycemia Sodium Bicarbonate 325 mg 04/23/21 09:33 Sodium Bicarbonate 325 Mg Tab FEEDTUBE PRN PRN For Clogged Feeding Tube Sodium Chloride 10 ml 04/22/21 22:00 04/30/21 09:53 Sodium Chloride 0.9% 10 Ml Flush Syringe IV 10 ml BID [place] Administration Sodium Chloride 10 ml 04/22/21 21:26 Sodium Chloride 0.9% 10 Ml Flush Syringe IV PRN PRN LINE FLUSH Nutrition/Malnutrition Assess - Dietary Evaluation Nutrition/Malnutrition Findings: Nutrition Notes Start: 04/23/21 08:22 Freq: Status: Active Protocol: Document 04/27/21 10:44 CW (Rec: 04/27/21 10:50 CW [id number]) Nutrition Notes Initial or Follow up Reassessment Current Diagnosis Diabetes,Hypertension,Heart Failure,Stroke Other Pertinent Diagnosis Cardiac arrest, AMI Current Diet Vital AF 1.2 at 65 ml/hr Labs/Tests BUN 40 Cr 1.4 BG 125 Pertinent Medications reviewed Height 6 ft Weight 102.6 kg [place] Body Weight (kg) 80.90 BMI 30.7 Weight change and time frame weight fluctuations noted Weight Status Obese Subjective/Other Information F/U for TF tolerance. TF currently running at goal of 65 ml/hr. No reprots of TF intolerance. Percent of energy/protein needs met: 100%/73% Burn Absent Trauma Absent GI Symptoms None Current % PO Negligible Minimum of two criteria No physical signs of malnutrition #1 Nutrition Diagnosis Inadequate oral intake Diagnosis Progress(for reassessment Continues documentation) Is patient on ventilator? Yes Is Patient Ambulatory and/or Out of Bed No REE-([facility]-confined to bed) 2223.804 Kcal/Kg value to use for calculation 18 Approximate Energy Requirements Using 1847 kcal/Kg Calculation Used for Recommendations Kcal/kg Additional Notes Protein needs are >161g (>2g IBW) Fluid needs are 1ml/kcal Nutrition Intervention Change Diet Order: Continue Nutrition Support: Vital 1.2 at 65ml/h Flush with 100ml q4h Kcal 1,872 Protein (gm) 117 Fluid (mL) 1,260 Goal #1 Meet at least 70% of kcal and protein needs via TF Anticipated Discharge Needs: Unable to determine at this time Follow-Up By: 04/30/21 Additional Comments F/U for TF tolerance
--- NOTE | 2021-04-30 12:28 | Progress Note ---
Assessment and Plan Assessment and plan: This is a 65-year-old male with CAD s/p CABG x3, ischemic cardiomyopathy with ejection fraction of 40 to 45%, hypertension, hyperlipidemia, CVA and diabetes who was admitted s/p cardiac arrest, leukocytosis, lactic acidosis, elevated troponin, hypochloremia, metabolic acidosis, acute hypoxic respiratory failure S/p cardiac arrest (NSTEMI) Acute hypoxic respiratory failure Acute kidney injury secondary to vasomotor nephropathy ? Brain injury ? Myoclonic jerks/Seizures Lactic acidosis (down trending) Elevated D-dimer CAD s/p CABG x3 Ischemic cardiomyopathy with EF of 40 to 45% Hypertension Hyperlipidemia CVA Diabetes -CCM, neurology, nephrology, cardiology consulted, appreciate recommendations -COVID-19 PCR negative -IV antibiotic -04/23 renal ultrasound shows no evidence of medical renal disease or hydronephrosis -04/22 echocardiogram shows moderately dilated left ventricle, left ventricular function severely decreased with LVEF of 20 to 25%, borderline concentric left ventricle hypertrophy, mildly dilated left atrium, mild MR, mild AR, mild TR, mild pulmonary hypertension, RVSP is 46 mmHg -04/23 renal calculated at 1.5 suggestive of ATN or prerenal state -04/24 EEG shows is abnormal due to diffuse background slowing noted throughout the recording, excessive beta activity noted bifrontally most likely drug- related, suggestive of possible toxic metabolic encephalopathy, drug effect, p ossibility of postictal or post anoxic brain injury. -04/24 MRI brain findings consistent with diffuse anoxic injury, large chronic infarct in the right MCA distribution, chronic white matter changes which are nonspecific and consistent with chronic microvascular ischemic disease, no evidence of hemorrhage, mass, mass-effect. -04/24 MRI head shows no acute large vessel occlusion or extra-axial fluid c ollection -Aspirin, Lipitor -Heparin drip -IV Keppra -Continue home amlodipine, aspirin, Lipitor, Coreg, Plavix, hydralazine, Imdur -S/p 2L NS bolus in ED -s/p IV hydration -Hold home torsemide, lisinopril -Tube feeding -Trend CBC, BMP DVT/GI prophylaxis: SCDs to bilateral lower extremities while in bed, systemic anticoagulation with heparin drip, PPI Disposition: ICU, possible hospice The high probability of a clinically significant, sudden or life threatening deterioration of the [multi] system(s) required my full and direct attention, intervention and personal management. The aggregate critical care time was [35] minutes. This time is in addition to time spent performing reported procedures but includes the following: [x] Data Review and interpretation [x] Patient assessment and monitoring of vital signs [x] Documentation [x] Medication orders and management History Interval history: This is a 65-year-old male with CAD s/p stents and CABG, DM, CVA, diastolic heart failure, HTN, hypercholesterolemia presented to the emergency department on 04/22 s/p cardiac arrest. Upon arrival of fire department patient was placed in the ED and shocked x2. Upon arrival of EMS patient was found to be in asystole and was given epinephrine x3, Narcan, sodium bicarb x1 and ROSC was achieved. Upon arrival to the emergency department patient again went to cardiac arrest and received 1 round of ACLS with epi nephron x1 and bicarb x1. Work-up in the emergency department revealed leukocytosis, lactic acidosis, elevated troponin, hypochloremia, metabolic acidosis. Patient was admitted to the hospital service with consults to nephrology, cardiology, neurology and [facility]. 04/23: We will hold MOLLY inhibitor and diuretics in setting of DELMI. EEG, MRI, MRV, renal ultrasound, echocardiogram pending Patient sedated with propofol. At the time my examination patient is on assist control tidal volume 450, rate of 26, PEEP of 6 and FiO2 of 30%. Nephrology was consulted given acute kidney injury and neurology. 04/24: Patient's leukocytosis has improved, he has slight hyperkalemia today but his kidney function has worsened to BUN 28/creatinine 2.2 from 14/12.6. Lactic acidosis has improved. Patient had his EEG today and is scheduled for MRI brain and MRA/MRV. This time my examination patient is on assist control tidal volume 450, rate 26, PEEP of 6 and 30% FiO2. Patient is Felicita calculated at 1.5 suggestive of ATN or PNA renal state. Renal ultrasound negative. He has hypokalemia today which will be repleted. 04/25: Patient's leukocytosis has resolved today, patient he is he has hyperchloremia which was repleted. Kidney function has improved. We will remove his Cruz catheter today. [facility] will obtain bilateral Doppler ultrasounds and magnesium. We will discontinue IV fluids. 04/26: Neurology has signed off today, [facility] has spoken to his family who will update us with decision on CODE STATUS/goals of care patient was hypokalemic today which was repleted. Surgery consult will be placed by CCM. CPAP trial today. Will panculture with next temperature spike. Possible CTA 04/27: General surgery will contact family regarding trach/PEG, per cardiology can add CCB or alpha-hector if needed cardioprotective regimen, patient's renal function continues to improve. This evening family informed RN that they elect to proceed with hospice. accountant manager informed. 04/28: Yesterday evening CM spoke to family regarding their decision to pursue hospice and did not want trach/PEG. accountant manager made referrals and this morning primary hospice informed case management that bed should be available this afternoon or evening. Slight downward trend of H/H. The time examination patient remained on room assist control tidal and 450, rate of 16, PEEP of 6 and 30% FiO2 and neurological exam was unchanged. 04/29 Patient is 65-year-old male with CAD s/p stents and CABG, DM, CVA, diastolic heart failure, HTN, hypercholesterolemia presented to the emergency department on 04/22 s/p cardiac arrest. Family has decided on hospice. Hopefully transfer to hospice today History Interval history: This is a 65-year-old male with CAD s/p CABG x3, ischemic cardiomyopathy with ejection fraction of 40 to 45%, hypertension, hyperlipidemia, CVA and diabetes who was admitted s/p cardiac arrest, leukocytosis, lactic acidosis, elevated troponin, hypochloremia, metabolic acidosis, acute hypoxic respiratory failure. Family has decided on hospice. Plan is to go to Hospice. No new events overnight Hospitalist Physical - Physical exam Narrative exam: - Physical exam Narrative exam: General appearance: Present: other (Intubated) - EENT Eyes: Present: scleral icterus - Neck Neck: Absent: masses or JVD, cervical LAD - Respiratory Respiratory effort: normal Respiratory: bilateral: CTA - Cardiovascular Rhythm: regular Heart Sounds: Present: S1 & S2. Absent: systolic murmur, diastolic murmur - Extremities Extremities: no ischemia, pulses intact, pulses symmetrical, No edema, normal temperature, normal color Peripheral Pulses: within normal limits - Abdominal General gastrointestinal: soft, non-tender, non-distended, normal bowel sounds - Psychiatric Psychiatric: other (not interactive, does not follow commands, slight gag noted, no response to painful stimuli) - Neurologic Neurologic: no CNII-XII intact, no moves all extremities - Allied Health Allied health notes reviewed: nursing, RT, social work assistant - Constitutional Vitals: Temp Pulse Resp BP Pulse Ox 97.9 F 86 26 H 154/76 95 04/30/21 08:00 04/30/21 11:00 04/30/21 11:00 04/30/21 11:00 04/30/21 11:00 General appearance: Present: other (Intubated) HEART Score - HEART Score Troponin: Troponin T 1.020 ng/mL (0.00-0.029) H* D 04/23/21 02:36 Results - Labs CBC & Chem 7: 04/30/21 06:00 04/27/21 05:01 Labs: Laboratory Last Values WBC 9.0 K/mm3 (4.5-11.0) 04/26/21 04:49 RBC 3.37 M/mm3 (3.65-5.03) L 04/26/21 04:49 Hgb 10.5 gm/dl (11.8-15.2) L 04/30/21 06:00 Hct 31.3 % (35.5-45.6) L 04/30/21 06:00 MCV 97 fl (84-94) H 04/26/21 04:49 MCH 33 pg (28-32) H 04/26/21 04:49 MCHC 34 % (32-34) 04/26/21 04:49 RDW 14.7 % (13.2-15.2) 04/26/21 04:49 Plt Count 186 K/mm3 (140-440) 04/30/21 06:00 Lymph % (Auto) 3.6 % (13.4-35.0) L 04/23/21 02:36 [place] % (Auto) 6.7 % (0.0-7.3) 04/23/21 02:36 Eos % (Auto) 0.0 % (0.0-4.3) 04/23/21 02:36 Baso % (Auto) 0.3 % (0.0-1.8) 04/23/21 02:36 Lymph # (Auto) 0.5 K/mm3 (1.2-5.4) L 04/23/21 02:36 [place] # (Auto) 1.0 K/mm3 (0.0-0.8) H 04/23/21 02:36 Eos # (Auto) 0.0 K/mm3 (0.0-0.4) 04/23/21 02:36 Baso # (Auto) 0.0 K/mm3 (0.0-0.1) 04/23/21 02:36 Seg Neutrophils % 89.4 % (40.0-70.0) H 04/23/21 02:36 Seg Neutrophils # 13.0 K/mm3 (1.8-7.7) H 04/23/21 02:36 PT 14.9 Sec. (12.2-14.9) 04/22/21 18:12 INR 1.17 (0.87-1.13) H 04/22/21 18:12 APTT 36.5 Sec. (24.2-36.6) 04/22/21 18:12 D-Dimer 8003.00 ng/mlDDU (0-234) H 04/23/21 08:58 Heparin Anti-Xa Level 0.34 U.I./ml (0.3-0.7) 04/29/21 18:19 ABG pH 7.485 (7.320-7.450) H 04/29/21 04:00 POC ABG pCO2 36.6 mmHg (32.0-48.0) 04/29/21 04:00 POC ABG pO2 59.3 mmHg (83-108) L 04/29/21 04:00 POC ABG HCO3 27.0 04/29/21 04:00 ABG O2 Saturation 90.3 (0-100) 04/29/21 04:00 POC ABG Base Excess 3.5 04/29/21 04:00 ABG Hemoglobin 10.2 (12.0-17.5) L 04/29/21 04:00 ABG Oxyhemoglobin 89.3 (94-98) L 04/29/21 04:00 ABG Methemoglobin 0.3 (0.0-1.5) 04/29/21 04:00 ABG Sodium 133.5 mmol/L (136.0-145.0) L 04/29/21 04:00 ABG Potassium 4.7 mmol/L (3.40-4.50) H 04/29/21 04:00 ABG Chloride 101.0 mmol/L (98-107) 04/29/21 04:00 ABG Glucose 120 mg/dL (65-95) H 04/29/21 04:00 Carboxyhemoglobin 0.8 (0.5-1.5) 04/29/21 04:00 FiO2 % 30.0 04/29/21 04:00 Sodium 138 mmol/L (137-145) 04/27/21 05:01 Potassium 4.5 mmol/L (3.6-5.0) 04/27/21 05:01 Chloride 99.2 mmol/L (98-107) 04/27/21 05:01 Carbon Dioxide 29 mmol/L (22-30) 04/27/21 05:01 Anion Gap 14 mmol/L 04/27/21 05:01 BUN 40 mg/dL (9-20) H 04/27/21 05:01 Creatinine 1.4 mg/dL (0.8-1.3) H 04/27/21 05:01 Estimated GFR > 60 ml/min 04/27/21 05:01 BUN/Creatinine Ratio 29 % 04/27/21 05:01 Glucose 125 mg/dL (75-100) H 04/27/21 05:01 POC Glucose 114 mg/dL (70-105) H 04/30/21 11:30 Lactic Acid 1.40 mmol/L (0.7-2.0) 04/24/21 07:03 Calcium 8.9 mg/dL (8.4-10.2) 04/27/21 05:01 Magnesium 1.90 mg/dL (1.7-2.3) 04/26/21 04:49 Ferritin 185.5 ng/mL (30.0-300.0) 04/23/21 08:58 Lactate Dehydrogenase 546 units/L (91-180) H 04/23/21 08:58 Troponin T 1.020 ng/mL (0.00-0.029) H* D 04/23/21 02:36 C-Reactive Protein 2.20 mg/dL (0.00-1.30) H 04/23/21 08:58 NT-Pro-B Natriuret Pep 2448 pg/mL (0-900) H 04/22/21 18:12 Triglycerides 107 mg/dL (2-149) 04/22/21 18:12 Cholesterol 136 mg/dL (50-199) 04/22/21 18:12 LDL Cholesterol Direct 78 mg/dL (50-130) 04/22/21 18:12 HDL Cholesterol 58 mg/dL (40-59) 04/22/21 18:12 Cholesterol/HDL Ratio 2.34 % 04/22/21 18:12 Procalcitonin 3.46 ng/mL (<0.15) 04/23/21 08:58 Arterial Blood Glucose 120 mg/dL (65-95) H 04/29/21 04:00 Arterial Blood Ionized Calcium 4.8 mg/dL (4.6-5.3) 04/29/21 04:00 Urine Creatinine 90.4 mg/dL (0.1-20.0) H 04/23/21 13:46 Urine Sodium 123 mmol/L 04/23/21 13:46 Urine Total Protein 103 mg/dL (5-11.8) H 04/23/21 13:46 Coronavirus (PCR) Negative (Negative) 04/23/21 Unknown Cruz/IV: Voiding Method Incontinent Active Medications - Current Medications Current Medications: Generic Name Dose Route Start Last Admin Trade Name Freq PRN Reason Stop Dose Admin Acetaminophen 650 mg 04/22/21 21:26 Acetaminophen 325 Mg Tab PO Q4H PRN Pain MILD(1-3)/Fever >100.5/GIORDANO Albuterol 2.5 mg 04/22/21 21:26 Albuterol 2.5 Mg/3 Ml Nebu IH Q3HRT PRN Shortness Of Breath Albuterol/Ipratropium 1 ampul 04/23/21 02:00 04/30/21 07:13 Ipratropium/Albuterol Sulfate 3 Ml Ampul.Neb IH 1 ampul Q6HRT [place] Administration Amlodipine Besylate 10 mg 04/23/21 10:00 04/30/21 09:53 Amlodipine 10 Mg Tab PO Not Given QDAY [facility] Lipase/Protease/Amylase 1 each 04/23/21 09:33 Lipase 10,500/Protease 25,000/Amylase 43,750 (Units) Dr Machado FEEDTUBE PRN PRN For Clogged Feeding Tube Atorvastatin Calcium 80 mg 04/22/21 22:00 04/29/21 21:35 Atorvastatin 40 Mg Tab PO 80 mg QHS [facility] Administration Carvedilol 25 mg 04/23/21 08:00 04/30/21 08:37 Carvedilol 25 Mg Tab PO Not Given DAILY@0800 [place] Dextrose 0 ml 04/22/21 21:26 Dextrose 50% In Water (25gm) 50 Ml Syringe IV Q30MIN PRN Hypoglycemia Protocol Hydralazine HCl 10 mg 04/22/21 21:35 04/26/21 02:22 Hydralazine 20 Mg/1 Ml Inj IV 10 mg Q6H PRN Administration htn Propofol 1,000 mg in 100 mls @ 3 mls/hr 04/22/21 19:00 04/24/21 19:06 Diprivan 10 Mg/Ml IV 0 mcg/kg/min TITR SHE[place] 0 mls/hr Titration Protocol 5 MCG/KG/MIN Levetiracetam 750 mg/ Dextrose 107.5 mls @ 400 mls/hr 04/30/21 10:00 04/30/21 09:52 IV 400 mls/hr Q12HR [place] Administration Insulin Human Lispro 0 unit 04/23/21 00:00 04/30/21 06:15 Insulin Lispro 100 Unit/Ml SUB-Q Not Given Q6HR [facility] Protocol Lorazepam 2 mg 04/22/21 22:52 04/26/21 05:53 Lorazepam 2 Mg/Ml Vial IV 2 mg Q4H PRN Administration Seizures Nitroglycerin 0.4 mg 04/22/21 21:26 Nitroglycerin 0.4 Mg Tab Subl SL .Q5MIN PRN Chest Pain Ondansetron HCl 4 mg 04/22/21 21:26 Ondansetron 4 Mg/2 Ml Inj IV Q8H PRN Nausea And Vomiting Pantoprazole Sodium 40 mg 04/30/21 10:00 04/30/21 09:53 Pantoprazole 40 Mg Inj IV 40 mg BID [place] Administration Scopolamine 1 each 04/29/21 17:00 04/29/21 18:38 Scopolamine Transdermal Patch 72 Hr TD 1 each Q3D [place] Administration Simple Syrup 15 ml 04/23/21 09:33 Simple Syrup 15 Ml FEEDTUBE PRN PRN Hypoglycemia Simple Syrup 30 ml 04/23/21 09:33 Simple Syrup 15 Ml FEEDTUBE PRN PRN Hypoglycemia Sodium Bicarbonate 325 mg 04/23/21 09:33 Sodium Bicarbonate 325 Mg Tab FEEDTUBE PRN PRN For Clogged Feeding Tube Sodium Chloride 10 ml 04/22/21 22:00 04/30/21 09:53 Sodium Chloride 0.9% 10 Ml Flush Syringe IV 10 ml BID [place] Administration Sodium Chloride 10 ml 04/22/21 21:26 Sodium Chloride 0.9% 10 Ml Flush Syringe IV PRN PRN LINE FLUSH Nutrition/Malnutrition Assess - Dietary Evaluation Nutrition/Malnutrition Findings: Nutrition Notes Start: 04/23/21 08:22 Freq: Status: Active Protocol: Document 04/30/21 11:39 (Rec: 04/30/21 11:42 [id number]) Nutrition Notes Initial or Follow up Reassessment Current Diagnosis Diabetes,Hypertension,Heart Failure,Stroke Other Pertinent Diagnosis Cardiac arrest, AMI Current Diet Vital AF 1.2 at 65 ml/hr Labs/Tests Reviewed Pertinent Medications Reviewed Height 6 ft Weight 106.1 kg [place] Body Weight (kg) 80.90 BMI 31.7 Weight Status Obese Subjective/Other Information FU for TF tolerance. Per chart , pt with coffee ground secretions noted on gastric residual when aspirated. TF now off. Pt awaiting hospice. Percent of energy/protein needs met: 0%/0% Burn Absent Trauma Absent Current % PO Negligible Minimum of two criteria No physical signs of malnutrition #1 Nutrition Diagnosis Inadequate oral intake Diagnosis Progress(for reassessment Continues documentation) Is patient on ventilator? Yes Is Patient Ambulatory and/or Out of Bed No REE-([place]-confined to bed) 2265.768 Kcal/Kg value to use for calculation 17 Approximate Energy Requirements Using 1804 kcal/Kg Calculation Used for Recommendations Kcal/kg Additional Notes Protein needs are >161g (>2g IBW) Fluid needs are 1ml/kcal Nutrition Intervention Change Diet Order: Start TF when medically able Nutrition Support: Vital 1.2 at 65ml/h Flush with 100ml q4h Kcal 1,872 Protein (gm) 117 Fluid (mL) 1,260 Goal #1 Restart TF when medically able Anticipated Discharge Needs: Unable to determine at this time Follow-Up By: 05/02/21 Additional Comments FU for TF restart and tolerance
[2021-04-30 15:25] VITALS: BP 137/63
--- NOTE | 2021-05-02 19:33 | Event Note ---
Date: 04/30/21 Patient discharged to inpatient hospice. I saw and examined him earlier in morning.
== END 2021-04-30 16:10 | disposition hospice, inpatient (51) | DRG 207 ==
LOC: ED 17:52 → CC1 21:20
PROVIDERS: ADMIT Hospitalist; ATTEND Internal Medicine
PROC: 5A1955Z Respiratory Ventilation, Greater than 96 Consecutive Hours (ICD-10-PCS; principal; 2021-04-22)
PROC: 0BH17EZ Insertion of Endotracheal Airway into Trachea, Via Natural or Artificial Opening (ICD-10-PCS; 2021-04-22)
PROC: 4A033R1 Measurement of Arterial Saturation, Peripheral, Percutaneous Approach (ICD-10-PCS; 2021-04-22)
PROC: 5A12012 Performance of Cardiac Output, Single, Manual (ICD-10-PCS; 2021-04-23)
DX: J96.01 Acute respiratory failure with hypoxia (principal); I21.4 Non-ST elevation (NSTEMI) myocardial infarction; I46.9 Cardiac arrest, cause unspecified; N17.0 Acute kidney failure with tubular necrosis; G92 Toxic encephalopathy; I50.33 Acute on chronic diastolic (congestive) heart failure; G93.1 Anoxic brain damage, not elsewhere classified; E87.2 Acidosis; I16.1 Hypertensive emergency; E78.5 Hyperlipidemia, unspecified; I25.5 Ischemic cardiomyopathy; Z20.822 Contact with and (suspected) exposure to COVID-19; I25.10 Atherosclerotic heart disease of native coronary artery without angina pectoris; E11.9 Type 2 diabetes mellitus without complications; I11.0 Hypertensive heart disease with heart failure; D72.829 Elevated white blood cell count, unspecified; E87.5 Hyperkalemia; I95.9 Hypotension, unspecified; G25.3 Myoclonus; R56.9 Unspecified convulsions; S06.9X0A Unspecified intracranial injury without loss of consciousness, initial encounter; Y93.89 Activity, other specified; Z71.3 Dietary counseling and surveillance; Z95.5 Presence of coronary angioplasty implant and graft; Z95.1 Presence of aortocoronary bypass graft; Z86.73 Personal history of transient ischemic attack (TIA), and cerebral infarction without residual deficits; Y92.89 Other specified places as the place of occurrence of the external cause; Y99.8 Other external cause status; Z88.5 Allergy status to narcotic agent; Z88.3 Allergy status to other anti-infective agents; Z91.041 Radiographic dye allergy status; Z79.899 Other long term (current) drug therapy
CPT/HCPCS: 36415; 36600; 70450; 70544; 70551; 71045; 74018; 76770; 80048; 80061; 82140; 82570; 82728; 82805; 82962; 83615; 83735; 83880; 84145; 84156; 84300; 84484; 85014; 85018; 85025; 85027; 85049; 85379; 85520; 85610; 85730; 86140; 87040; 93005; 93306; 93970; 94002; 94003; 94640; 95819; 96365; 96366; 96367; 96375; G0378; A9270-GY; C9113; J0171; J0360; J0461; J0692; J0696; J1644; J1815; J1953; J2060; J2704; J3370; J7030; J7040; U0003